=== PATIENT | female | born 2000 | race Caucasian/White ===

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

== ENCOUNTER 2021-08-01 11:00 | Emergency (ER) | payer OTHER ==
--- OUTSIDE RECORDS SUMMARY | 2021-08-01 11:06 | XMS REPORT | Continuity of Care Document ---
:2000 Author Organization [facility] t Address [address] [place] [address] Care Team Providers Name Role Phone PCP, DOES NOT HAVE A Primary Care Physician Unavailable Paris ELIZONDO Attending Clinician Unavailable Narciso WANG Attending Clinician Unavailable AXEL C Attending Clinician Unavailable Visit, Nurse Attending Clinician Unavailable Randa BONILLA, R Attending Clinician Татьяна TOLENTINO Attending Clinician Unavailable Doctor Unassigned, Name Attending Clinician Unavailable Delgado Montoya DO Attending Clinician Kathleen PLASENCIA L Attending Clinician Axel WILKINSON, C Attending Clinician Mikhail BONILLA, N Attending Clinician TOMASZ Attending Clinician Unavailable Chandan PLASENCIA Attending Clinician Tomasz MORALES Attending Clinician Dale PLASENCIA Attending Clinician Javad PLASENCIA, Mookie Attending Clinician Pob, Lab Main Attending Clinician Unavailable Nurse, Women's Health Attending Clinician Unavailable DICLEMENTE Attending Clinician Unavailable DICLEMENTE Attending Clinician Unavailable 1, Lab Attending Clinician Unavailable DICLEMENTE Admitting Clinician Unavailable Payers Payer Name Policy Type Policy Number Effective Date Expiration Date Kurtis fatima [facility] [id number] 2020 00:00:00 MEDICAID PENDING PENDING 2019 00:00:00 Advance Directives Directive Decision Effective Termination Comments Source Date Date Healthcare Agents on N/A [facility] ersity FileNameRelationshipHealthcare of [place] Agent Medical RelationshipCommunicationRegina Branch Shilpa NeurohrMotherHealth Care [phone] (Mobile) Anahi GamezdparentSecond [facility]ate [facility] [phone] (Mobile) Problems Condition Condition Condition Status Onset Resolution Last Treating Co mments Source Name Details Category Date Date Treatment Clinician Date Obesity Obesity Disease Active Univers (BMI (BMI 1-08 ity of 30-39.9) 30-39.9) 00:00: [place] 00 Medical Branch Other Other Disease Active Univers general general 9-24 ity of counseling counseling [place] and advice and advice 00 Me dical for for Branch contracept contracept tomás tomás management management Irregular Irregular Disease Active Uni vers menstrual menstrual 9-24 ity of cycle cycle 00:00: [place] 00 Medical Branch Tobacco Tobacco Disease Active Univers use use 9-24 ity of disorder disorder 00:00: [place] 00 Medical Branch Verruca Verruca Disease Active Overview: [facility] ers warts warts 1-11 Formattin ity of (infectiou (infectiou 00:00: g of this [place] s) s) 00 note Medical might be Branch different from the original. 08/22/2019 - s/p excision of a wart on her mons pubis. Pathology confirmed benign verrucous wart. Female Female Disease Active [facility] infertilit infertilit 9-06 Formattin ity of y y 00:00: g of this [place] associated associated 00 note Me dical with with might be Branch anovulatio anovulatio different n n from the original. 04/15/19 - day 3 FSH 6.96, E2 41704/15/19 - HSG normal Amenorrhea Amenorrhea Disease Active Overview : Univers , , 8-03/20/19 - ity of secondary secondary 00:00: FSH 5.88, [place] 00 LH 18.4. Medical Normal Branch prolactin , TSH, 17 hydroxypr ogesteron e. AMH 9.59. Gonococcal Gonococcal Disease Active U nivers infection infection 6-25 ity of (acute) of (acute) of 00:[place] lower lower 00 Medical genitourin genitourin Br anch avery tract avery tract Encounter Encounter Disease Active Uni vers for IUD for IUD 6-25 ity of removal removal 00:00: [place] 00 Medical Branch Presence Presence Disease Active Overview: Un jian of of 01-0901/09/19 - ity of intrauteri intrauteri 00:00: Mirena [place] ne ne 00 IUD Medical contracept contracept inserted Branch tomás device tomás device Dyspareuni Dyspareuni Disease Active Overview : Univers a, female a, female 12-02 Formattin i ty of 00:00: g of this note Medical might be Branch different from the original. 12/02/18 - Gabapenti n 300 TID started Chronic Chronic Disease Active Univers female female 12-02 ity of pelvic pelvic 00:00: [place] pain pain 00 Medical Branch Postcoital Postcoital Disease Active U nivers bleeding bleeding 12-02 ity of 00:00: [place] 00 Medical Branch Chlamydia Chlamydia Disease Active Overview: Univers trachomati trachomati 3-09/10/18 - ity of s s 00:00: +chlamydi [place] infection infection 00 a s/p Medi annel of lower of lower treatment Bra [facility] genitourin genitourin avery sites avery sites Depression Depression Disease Active U nivers , , - ity of unspecifie unspecifie 00:00: [place] d d 00 Medical depression depression Br anch type type Anxiety Anxiety Disease Active Univers disorder, disorder, - ity of unspecifie unspecifie 00:00[place] d type d type 00 Medical Branch Allergies, Adverse Reactions, Alerts Allergy Allergy Status Severity Reaction(s) Onset Inactive Treating Comm ents Source Name Type Date Date Clinician Gabapent Propensi Active Shortness of Univers in ty to Breath 8-22 ity of adverse 00:00: [place] reaction 00 Medical s Branch GABAPENT DRUG Active Anxiety Univers IN INGREDI 04-03 ity of 00:00: [address] Social History Social Habit Start Date Stop Date Quantity Comments Source History of Smoker University of tobacco use [facility] ASSERTION [facility] Exposure to Not sure University of SARS-CoV-2 [facility] (event) [place] Tobacco use and 2021-04-06 2021-04-06 Never used Universit y of exposure 00:00:00 00:00:00 [facility] Alcohol intake 2021-04-06 2021-04-06 Current drinker Unive rsity of 00:00:00 00:00:00 of alcohol [facility] (finding) [place] Tobacco Comment 2020-05-06 2020-05-06 vapes Universit y of 00:00:00 00:00:00 [facility] Alcohol Comment 2020-05-06 2020-05-06 social Universit y of 00:00:00 00:00:00 [facility] Sex Assigned At 2000 2000 Universit y of 00:00:00 00:00:00 [facility] Smoking Status Start Date Stop Date Source Current some day smoker 2021-04-06 00:00:00 [facility] ersity [facility] Never smoker [facility] Medications Ordered Filled Start Stop Current Ordering Indication Dosage Frequency Signature Comments Components Source Medication Medication Date Date Medication? Clinician (SIG) Name Name norgestimat Yes [id number] 1{tbl} Take 1 Univers e-ethinyl 1-08 tablet by ity o f estradioL 00:00: mouth [place] (ORTHO 00 daily. [facility] 28,) 0.18/0.215/ 0.25 mg-35 mcg (28) tablet norgestimat Yes [id number] 1{tbl} Take 1 Univers e-ethinyl 1-08 tablet by ity o f estradioL 00:00: mouth [place] (ORTHO 00 daily. [facility] 28,) 0.18/0.215/ 0.25 mg-35 mcg (28) tablet norgestimat Yes [id number] 1{tbl} Take 1 Univers e-ethinyl 1-08 tablet by ity o f estradioL 00:00: mouth [place] (ORTHO 00 daily. [place] [address],) 0.18/0.215/ 0.25 mg-35 mcg (28) tablet norgestimat 2020-0 Yes [id number] 1{tbl} Take 1 Univers e-ethinyl 1-08 tablet by ity o f estradioL 00:00: mouth [place] (ORTHO 00 daily. [place] [address],) 0.18/0.215/ 0.25 mg-35 mcg (28) tablet norgestimat 2020-0 Yes [id number] 1{tbl} Take 1 Univers e-ethinyl 1-08 tablet by ity o f estradioL 00:00: mouth [place] (ORTHO 00 daily. [place] [address],) 0.18/0.215/ 0.25 mg-35 mcg (28) tablet norgestimat 2020-0 Yes [id number] 1{tbl} Take 1 Univers e-ethinyl 1-08 tablet by ity o f estradioL 00:00: mouth [place] (ORTHO 00 daily. [place] [address],) 0.18/0.215/ 0.25 mg-35 mcg (28) tablet norgestimat 2020-0 Yes [id number] 1{tbl} Take 1 Univers e-ethinyl 1-08 tablet by ity o f estradioL 00:00: mouth [place] (ORTHO 00 daily. [place] [address],) 0.18/0.215/ 0.25 mg-35 mcg (28) tablet norgestimat 2020-0 Yes [id number] 1{tbl} Take 1 Univers e-ethinyl 1-08 tablet by ity o f estradioL 00:00: mouth [place] (ORTHO 00 daily. [place] [address],) 0.18/0.215/ 0.25 mg-35 mcg (28) tablet cefTRIAXone 2019-08- No [id number] 250mg Univers (ROCEPHIN) 0-26 10-26 ity of injection 22:45: 21:50 [place] 250 mg 00 :00 [facility] cefTRIAXone 2019-08 2020- No [id number] 250mg 250 mg, Univers (ROCEPHIN) 0-26 10-26 Intramuscu it y of injection 22:45: 21:50 lar, ONCE, [place] 250 mg 00 :00 1 dose, [facility] 06/07/20 at 1745, OLIVIA
Re ason for Anti-Infec tive: Empiric Therapy for Suspected Infection< br>Empiric Therapy Site: Other
O ther site: genitourin avery
Dur ation of therapy: 7 days cefTRIAXone 2019-08- No [id number] 250mg Univers (ROCEPHIN) 0- 10- ity of injection 22:45: 21:50 [place] 250 mg 00 :00 [facility] cefTRIAXone 2019-08- No [id number] 250mg 250 mg, Univers (ROCEPHIN) 0-07 06- Intramuscu it y of injection 22:45: 21:50 lar, ONCE, [place] 250 mg 00 :00 1 dose, [facility] 06/07/20 at 1745, OLIVIA
Re ason for Anti-Infec tive: Empiric Therapy for Suspected Infection< br>Empiric Therapy Site: Other
O ther site: genitourin avery
Dur ation of therapy: 7 days azithromyci 2019-08- No [id number] 1000mg Take 2 Univers n 500 mg 0-26 10-27 tablets by ity of tablet 00:00: 04:59 mouth [place] 00 :00 now for 1 Medical dose. [place] azithromyci 2019-08- No [id number] 1000mg Take 2 Univers n 500 mg 0-26 10-27 tablets by ity of tablet 00:00: 04:59 [place] 00 :00 now for 1 Medical dose. [place] cefTRIAXone 2019- No 250mg Univ ers (ROCEPHIN) 05-10 ity of injection 19:45: 19:28 [place] 250 mg 00 :00 [facility] cefTRIAXone 2019- No 250mg 250 mg, U nivers (ROCEPHIN) 05-10 Intramuscu it y of injection 19:45: 19:28 lar, ONCE, [place] 250 mg 00 :00 1 dose, [facility] 05/10/20 at 1445, OLIVIA
Re ason for Anti-Infec tive: Documented Infection< br>Documen kat Infection Site: Other
O ther site: genitourin avery
Dur ation of Therapy: Other (see Comments) azithromyci 2020-0 2020- No [id number] 1000mg Take 2 Univers n 500 mg 9-25 09-26 tablets by ity of tablet 00:00: 04:59 [place] 00 :00 now for 1 Medical dose. Branch azithromyci 2020-0 2020- No [id number] 1000mg Take 2 Univers n 500 mg 9-25 09-26 tablets by ity of tablet 00:00: 04:59 [place] 00 :00 now for 1 Medical dose. Branch norgestimat 2020-0 Yes [id number] 1{tbl} Take 1 Univers e-ethinyl 9-24 tablet by ity o f estradioL 00:00: mouth [place] (ORTHO 00 daily. [place] [address],) 0.18/0.215/ 0.25 mg-35 mcg (28) tablet norgestimat 2020-0 Yes [id number] 1{tbl} Take 1 Univers e-ethinyl 9-24 tablet by ity o f estradioL 00:00: mouth [place] (ORTHO 00 daily. [place] [address],) 0.18/0.215/ 0.25 mg-35 mcg (28) tablet norgestimat 2020-0 Yes [id number] 1{tbl} Take 1 Univers e-ethinyl 9-24 tablet by ity o f estradioL 00:00: mouth [place] [facility] [address] 0.18/0.215/ 0.25 mg-35 mcg (28) tablet norgestimat 2020-0 Yes [id number] 1{tbl} Take 1 Univers e-ethinyl 9-24 tablet by ity o f estradioL 00:00: mouth [place] ([place] 00 [facility]. [facility] [place] [address],) 0.18/0.215/ 0.25 mg-35 mcg (28) tablet norgestimat 2020-0 Yes [id number] 1{tbl} Take 1 Univers e-ethinyl 9-24 tablet by ity o f estradioL 00:00: mouth [place] ([place] 00 [facility]. [facility] [place] [address],) 0.18/0.215/ 0.25 mg-35 mcg (28) tablet norgestimat 2020-0 Yes [id number] 1{tbl} Take 1 Univers e-ethinyl 9-24 tablet by ity o f estradioL 00:00: mouth [place] (ORTHO 00 daily. [place] [address],) 0.18/0.215/ 0.25 mg-35 mcg (28) tablet norgestimat 2020-0 Yes [id number] 1{tbl} Take 1 Univers e-ethinyl 9-24 tablet by ity o f estradioL 00:00: mouth [place] (ORTHO 00 daily. [place] [address],) 0.18/0.215/ 0.25 mg-35 mcg (28) tablet norgestimat 2020-0 Yes [id number] 1{tbl} Take 1 Univers e-ethinyl 9-24 tablet by ity o f estradioL 00:00: mouth [place] (ORTHO 00 daily. [place] [address],) 0.18/0.215/ 0.25 mg-35 mcg (28) tablet norgestimat 2020-0 Yes [id number] 1{tbl} Take 1 Univers e-ethinyl 9-24 tablet by ity o f estradioL 00:00: mouth [place] (ORTHO 00 daily. [place] [address],) 0.18/0.215/ 0.25 mg-35 mcg (28) tablet norgestimat 2020-0 202- No [id number] 1{tbl} Take 1 Univers e-ethinyl 9-24 -08 tablet by ity of estradioL 00:00: 00:00 mouth [place] (ORTHO 00 :00 daily. [place] [address],) 0.18/0.215/ 0.25 mg-35 mcg (28) tablet norgestimat 2020-0 2020- No [id number] 1{tbl} Take 1 Univers e-ethinyl 9-24 01-08 tablet by ity of estradioL 00:00: 00:00 mouth [place] (ORTHO 00 :00 daily. [place] [address],) 0.18/0.215/ 0.25 mg-35 mcg (28) tablet norgestimat 2020-0 2020- No [id number] 1{tbl} Take 1 Univers e-ethinyl 9-24 09-24 tablet by ity of estradioL 00:00: 00:00 mouth [place] (ORTHO 00 :00 daily. Medical [facility]CLEN, Branch 28,) 0.18/0.215/ 0.25 mg-35 mcg (28) tablet norgestimat 2019-0 2020- No [id number] 1{tbl} Take 1 Univers e-ethinyl -06 05-24 tablet by ity of estradioL 00:00: 00:00 mouth [place] (ORTHO 00 :00 daily. Medical TRI-CYCLEN, Branch 28,) 0.18/0.215/ 0.25 mg-35 mcg (28) tablet clomiPHENE 2020-0 Yes [id number] 100mg Take 2 Univers 50 mg 2-06 tablets by ity of tablet 00:00: mouth [place] 00 daily. Medical Take first Branch dose on Day 3 of cycle. clomiPHENE 2020-0 Yes [id number] 100mg Take 2 Univers 50 mg 2-06 tablets by ity of tablet 00:00: mouth [place] 00 daily. Medical Take first Branch dose on Day 3 of cycle. clomiPHENE 2020-0 Yes [id number] 100mg Take 2 Univers 50 mg 2-06 tablets by ity of tablet 00:00: mouth [place] 00 daily. Medical Take first Branch dose on Day 3 of cycle. clomiPHENE 2020-0 Yes [id number] 100mg Take 2 Univers 50 mg 2-06 tablets by ity of tablet 00:00: mouth [place] 00 daily. Medical Take first Branch dose on Day 3 of cycle. clomiPHENE 2020-0 2020- No [id number] 100mg Take 2 Univers 50 mg 2-06 02-28 tablets by ity of tablet 00:00: 00:00 mouth [place] 00 :00 daily. Medical Take first Branch dose on Day 3 of cycle. clomiPHENE 2020-0 2020- No [id number] 100mg Take 2 Univers 50 mg 2-06 02-28 tablets by ity of tablet 00:00: 00:00 mouth [place] 00 :00 daily. Medical Take first Branch dose on Day 3 of cycle. clomiPHENE 2020-0 2020- No [id number] 100mg Take 2 Univers 50 mg 2-06 02-28 tablets by ity of tablet 00:00: 00:00 mouth [place] 00 :00 daily. Medical Take first Branch dose on Day 3 of cycle. clomiPHENE 2019-1 Yes [id number] 100mg Take 2 Univers 50 mg 2-19 tablets by ity of tablet 00:00: mouth [place] 00 daily. Medical Take first Branch dose on Day 3 of cycle. clomiPHENE 2018- Yes [id number] 100mg Take 2 Univers 50 mg 2-19 tablets by ity of tablet 00:00: mouth [place] 00 daily. Medical Take first Branch dose on Day 3 of cycle. clomiPHENE 2018- Yes [id number] 100mg Take 2 Univers 50 mg 2-19 tablets by ity of tablet 00:00: mouth [place] 00 daily. Medical Take first Branch dose on Day 3 of cycle. clomiPHENE 2018- 2020- No [id number] 100mg Take 2 Univers 50 mg 2-19 02-01 tablets by ity of tablet 00:00: 00:00 mouth [place] 00 :00 daily. Medical Take first Branch dose on Day 3 of cycle. iohexol 2019- No 50mL 50 mL, Univers (OMNIPAQUE 04-15- Intravenou it y of 300-50 mL)) 16:30: 16:05 s, ONCE, 1 [place] injection 00 :00 dose, Tue Medic al 50 mL 04/15/19 at Branch 1130, Routine 2019-0 Yes Take by Unive rs vit 8-22 mouth. ity of calc,iron,f 19:20: [place] [address] Medical ( Branch VITAMIN ORAL) 2019-0 Yes Take by Unive rs vit 8-22 mouth. ity of calc,iron,f 19:20: [place] [address] Medical ( Branch VITAMIN ORAL) 2019-0 Yes Take by Unive rs vit 8-22 mouth. ity of calc,iron,f 19:20: [place] [address] Medical ( Branch VITAMIN ORAL) 2019-0 Yes Take by Unive rs vit 8-22 mouth. ity of calc,iron,f 19:20: [place] [address] Medical ( Branch VITAMIN ORAL) 2019-0 Yes Take by Unive rs vit 8-22 mouth. ity of calc,iron,f 19:20: [place] [address] Medical ( Branch VITAMIN ORAL) 2019-0 Yes Take by Unive rs vit 8-22 mouth. ity of calc,iron,f 19:20: [place] [address] Medical ( Branch VITAMIN ORAL) medroxyPROG Yes [id number] 10mg Take 1 Univers ESTERone 8-22 tablet by ity of (PROVERA) 00:00: mouth [place] 10 mg 00 daily. 10 Medical tablet days each Branch month clomiPHENE Yes [id number] 50mg Take 1 Univers 50 mg 8-22 tablet by ity of tablet 00:00: mouth [place] 00 daily. On Medical days 5-9 Branch of your cycle medroxyPROG Yes [id number] 10mg Take 1 Univers ESTERone 8-22 tablet by ity of (PROVERA) 00:00: mouth [place] 10 mg 00 daily. 10 Medical tablet days each Branch month clomiPHENE Yes [id number] 50mg Take 1 Univers 50 mg 8-22 tablet by ity of tablet 00:00: mouth [place] 00 daily. On Medical days 5-9 Branch of your cycle medroxyPROG Yes [id number] 10mg Take 1 Univers ESTERone 8-22 tablet by ity of (PROVERA) 00:00: mouth [place] 10 mg 00 daily. 10 Medical tablet days each Branch month clomiPHENE Yes [id number] 50mg Take 1 Univers 50 mg 8-22 tablet by ity of tablet 00:00: mouth [place] 00 daily. On Medical days 5-9 Branch of your cycle medroxyPROG Yes [id number] 10mg Take 1 Univers ESTERone 8-22 tablet by ity of (PROVERA) 00:00: mouth [place] 10 mg 00 daily. 10 Medical tablet days each Branch month clomiPHENE Yes [id number] 50mg Take 1 Univers 50 mg 8-22 tablet by ity of tablet 00:00: mouth [place] 00 daily. On Medical days 5-9 Branch of your cycle medroxyPROG Yes [id number] 10mg Take 1 Univers ESTERone 8-22 tablet by ity of (PROVERA) 00:00: mouth [place] 10 mg 00 daily. 10 Medical tablet days each Branch month clomiPHENE Yes [id number] 50mg Take 1 Univers 50 mg 8-22 tablet by ity of tablet 00:00: mouth [place] 00 daily. On Medical days 5-9 Branch of your cycle medroxyPROG Yes [id number] 10mg Take 1 Univers ESTERone 8-22 tablet by ity of (PROVERA) 00:00: mouth [place] 10 mg 00 daily. 10 Medical tablet days each Branch month clomiPHENE Yes [id number] 50mg Take 1 Univers 50 mg 8-22 tablet by ity of tablet 00:00: mouth [place] 00 daily. On Medical days 5-9 Branch of your cycle cefTRIAXone 2018- No 1000mg 1,000 mg, Univers (ROCEPHIN) 03-20 Intramuscu it y of injection 21:45: 20:43 lar, ONCE, [place] 1,000 mg 00 :00 1 dose, [facility] 03/20/19 Branch at 1645, OLIVIA
Re ason for Anti-Infec tive: Empiric Therapy for Suspected Infection< br>Empiric Therapy Site: Urine
D uration of therapy: 72 hours cefTRIAXone 2018- No 1000mg Uni vers (ROCEPHIN) 03-20 ity of injection 21:45: 20:43 [place] 1,000 mg 00 :00 Medical Branch cefTRIAXone 2018- No 1000mg 1,000 mg, Univers (ROCEPHIN) 03-20 Intramuscu it y of injection 21:45: 20:43 lar, ONCE, [place] 1,000 mg 00 :00 1 dose, [facility] 03/20/19 Branch at 1645, OLIVIA
Re ason for Anti-Infec tive: Empiric Therapy for Suspected Infection< br>Empiric Therapy Site: Urine
D uration of therapy: 72 hours cefTRIAXone 2018- No 1000mg Uni vers (ROCEPHIN) 03-20 ity of injection 21:45: 20:43 [place] 1,000 mg 00 :00 Medical Branch medroxyPROG Yes [id number] 10mg Take 1 Univers ESTERone 8-08 tablet by ity of (PROVERA) 00:00: mouth [place] 10 mg 00 daily. Medical tablet Branch medroxyPROG Yes [id number] 10mg Take 1 Univers ESTERone 8-08 tablet by ity of (PROVERA) 00:00: mouth [place] 10 mg 00 daily. Medical tablet Branch medroxyPROG Yes [id number] 10mg Take 1 Univers ESTERone 8-08 tablet by ity of (PROVERA) 00:00: mouth [place] 10 mg 00 daily. Medical tablet Branch medroxyPROG 2019-0 Yes [id number] 10mg Take 1 Univers ESTERone 8-08 tablet by ity of (PROVERA) 00:00: mouth [place] 10 mg 00 daily. Medical tablet Branch medroxyPROG 2019-0 Yes [id number] 10mg Take 1 Univers ESTERone 8-08 tablet by ity of (PROVERA) 00:00: mouth [place] 10 mg 00 daily. Medical tablet Branch medroxyPROG 2019-0 Yes [id number] 10mg Take 1 Univers ESTERone 8-08 tablet by ity of (PROVERA) 00:00: mouth [place] 10 mg 00 daily. Medical tablet Branch medroxyPROG 2019-0 Yes [id number] 10mg Take 1 Univers ESTERone 8-08 tablet by ity of (PROVERA) 00:00: mouth [place] 10 mg 00 daily. Medical tablet Branch medroxyPROG 2019-0 Yes [id number] 10mg Take 1 Univers ESTERone 8-08 tablet by ity of (PROVERA) 00:00: mouth [place] 10 mg 00 daily. Medical tablet Branch medroxyPROG 2019-0 Yes [id number] 10mg Take 1 Univers ESTERone 8-08 tablet by ity of (PROVERA) 00:00: mouth [place] 10 mg 00 daily. Medical tablet Branch medroxyPROG 2019-0 Yes [id number] 10mg Take 1 Univers ESTERone 8-08 tablet by ity of (PROVERA) 00:00: mouth [place] 10 mg 00 daily. Medical tablet Branch medroxyPROG 2019-0 Yes [id number] 10mg Take 1 Univers ESTERone 8-08 tablet by ity of (PROVERA) 00:00: mouth [place] 10 mg 00 daily. Medical tablet Branch 2019-0 Yes Take by Unive rs vit 6-25 mouth. ity of calc,iron,f 18:54: [facility] 58 Medical ( Branch VITAMIN ORAL) 2019-0 Yes Take by Unive rs vit 6-25 mouth. ity of calc,iron,f 18:54: [place] [address] Medical ( Branch VITAMIN ORAL) 2019-0 Yes Take by Unive rs vit 6-25 mouth. ity of calc,iron,f 18:54: [facility] 58 Medical ( Branch VITAMIN ORAL) 2019-0 Yes Take by Unive rs vit 6-25 mouth. ity of calc,iron,f 18:54: [place] olic 58 Medical ( Branch VITAMIN ORAL) 2019-0 Yes Take by Unive rs vit 6-25 mouth. ity of calc,iron,f 18:54: [place] olic 58 Medical ( Branch VITAMIN ORAL) No known No Univers medications ity of [place] [facility] No known No Univers medications ity of [facility] No known No Univers medications ity of [facility] No known No Univers medications ity of [place] [facility] No known No Univers medications ity of [facility] No known No Univers medications ity of [place] [facility] No known No Univers medications ity of [facility] No known No Univers medications ity of [facility] No known No Univers medications ity of [facility] No known No [facility] Ordered Filled Immunization Date Status Comments Sour e Immunization Name Name Td 2018-02-07 Completed University of 00:00:00 [facility] Tdap 2018-02-07 Completed University of 00:00:00 [facility] Tdap 2018-02-07 Completed University of 00:00:00 [facility] Tdap 2018-02-07 Completed University of 00:00:00 [facility] Tdap 2018-02-07 Completed University of 00:00:00 [facility] Tdap 2018-02-07 Completed University of 00:00:00 [facility] Tdap 2018-02-07 Completed University of 00:00:00 [facility] Tdap 2018-02-07 Completed University of 00:00:00 [place] [facility] Tdap 2018-02-07 Completed University of 00:00:00 [place] [facility] Tdap 2018-02-07 Completed University of 00:00:00 [facility] Branch Tdap 2018-02-07 Completed University of 00:00:00 [facility] Branch Tdap 2018-02-07 Completed University of 00:00:00 [place] [facility] Tdap 2018-02-07 Completed University of 00:00:00 [facility] Tdap 2018-02-07 Completed University of 00:00:00 [facility] Tdap 2018-02-07 Completed University of 00:00:00 [facility] Tdap 2018-02-07 Completed University of 00:00:00 [facility] Branch Tdap 2018-02-07 Completed University of 00:00:00 [place] [facility] Tdap 2018-02-07 Completed University of 00:00:00 [place] [facility] Tdap 2018-02-07 Completed University of 00:00:00 [place] [facility] Tdap 2018-02-07 Completed University of 00:00:00 [place] [facility] Tdap 2018-02-07 Completed University of 00:00:00 [place] [facility] Tdap 2018-02-07 Completed University of 00:00:00 [place] [facility] Tdap 2018-02-07 Completed University of 00:00:00 [place] [facility] Tdap 2018-02-07 Completed University of 00:00:00 [place] [facility] Tdap 2018-02-07 Completed University of 00:00:00 [place] [facility] Tdap 2018-02-07 Completed University of 00:00:00 [place] [facility] TDAP 2018-02-07 Completed University of 00:00:00 [place] [facility] TDAP 2018-02-07 Completed University of 00:00:00 [place] [facility] TDAP 2018-02-07 Completed University of 00:00:00 [place] [facility] TDAP 2018-02-07 Completed University of 00:00:00 [place] [facility] TDAP 2018-02-07 Completed University of 00:00:00 [place] [facility] TDAP 2018-02-07 Completed University of 00:00:00 [place] [facility] TDAP 2018-02-07 Completed University of 00:00:00 [place] [facility] TDAP 2018-02-07 Completed University of 00:00:00 [place] [facility] TDAP 2018-02-07 Completed University of 00:00:00 [facility] TDAP 2018-02-07 Completed [facility] of 00:00:00 [facility] TDAP 2018-02-07 Completed [facility] of 00:00:00 [facility] TDAP 2018-02-07 Completed [facility] 00:00:00 [facility] TDAP 2018-02-07 Completed University [facility] 00:00:00 [facility] TDAP 2018-02-07 Completed [facility] 00:00:00 [facility] TDAP 2018-02-07 Completed University of 00:00:00 [facility] TDAP 2018-02-07 Completed University of 00:00:00 [facility] TDAP 2018-02-07 Completed University of 00:00:00 [facility] TDAP 2018-02-07 Completed University of 00:00:00 [facility] TDAP 2018-02-07 Completed University of 00:00:00 [facility] Tdap 2018-02-07 Completed University of 00:00:00 [facility] Tdap 2018-02-07 Completed University of 00:00:00 [facility] Tdap 2018-02-07 Completed University of 00:00:00 [facility] Vital Signs Vital Name Observation Time Observation Value Comments Source Systolic blood 2021-04-06 18:13:00 133 mm[Hg] Univer sity of pressure [facility] Diastolic blood 2021-04-06 18:13:00 86 mm[Hg] Unive rsity of pressure [facility] Heart rate 2021-04-06 18:13:00 88 /min Universi ty [facility] Body temperature 2021-04-06 18:13:00 37.56 Es Univ ersity of [facility] Respiratory rate 2021-04-06 18:13:00 16 /min Univ ersity of [facility] Body height 2021-04-06 18:13:00 167.6 cm [facility] Body weight 2021-04-06 18:13:00 87.499 kg [facility] BMI 2021-04-06 18:13:00 31.13 kg/m2 [facility] Systolic blood 2020-08-20 15:52:00 110 mm[Hg] Univer sity of pressure [facility] Diastolic blood 2020-08-20 15:52:00 77 mm[Hg] Unive rsity of pressure [facility] Heart rate 2020-08-20 15:52:00 82 /min [facility]i [facility] Body temperature 2020-08-20 15:52:00 36.89 Es Univ ersity of [facility] Respiratory rate 2020-08-20 15:52:00 16 /min Univ ersity of [facility] Body height 2020-08-20 15:52:00 167.6 cm [facility] Body weight 2020-08-20 15:52:00 87.726 kg [facility] BMI 2020-08-20 15:52:00 31.22 kg/m2 [facility] Systolic blood 2020-06-07 21:01:00 124 mm[Hg] Univer sity of pressure [facility] Diastolic blood 2020-06-07 21:01:00 73 mm[Hg] Unive rsity of pressure [facility] Heart rate 2020-06-07 21:01:00 99 /min [facility]i [facility] Body temperature 2020-06-07 21:01:00 36.78 Es Univ ersity of [facility] Respiratory rate 2020-06-07 21:01:00 16 /min Univ ersity of [facility] Body height 2020-06-07 21:01:00 167.6 cm [facility] Body weight 2020-06-07 21:01:00 86.183 kg [facility] BMI 2020-06-07 21:01:00 30.67 kg/m2 [facility] Systolic blood 2020-05-10 18:09:00 122 mm[Hg] Univer sity of pressure [facility] Diastolic blood 2020-05-10 18:09:00 78 mm[Hg] Unive rsity of pressure [facility] Heart rate 2020-05-10 18:09:00 102 /min [facility]i [facility] Body temperature 2020-05-10 18:09:00 36.56 Es Univ ersity of [facility] Respiratory rate 2020-05-10 18:09:00 16 /min Univ ersity of [facility] Body height 2020-05-10 18:09:00 170.2 cm [facility] Body weight 2020-05-10 18:09:00 82.781 kg [facility] BMI 2020-05-10 18:09:00 28.58 kg/m2 [facility] Systolic blood 2020-05-06 20:58:00 129 mm[Hg] Univer sity of pressure [facility] Diastolic blood 2020-05-06 20:58:00 86 mm[Hg] Unive rsity of pressure [facility] Heart rate 2020-05-06 20:58:00 97 /min [facility]i [facility] Body temperature 2020-05-06 20:58:00 36.44 Es Univ ersity of [facility] Respiratory rate 2020-05-06 20:58:00 16 /min Univ ersity of [facility] Body height 2020-05-06 20:58:00 170.2 cm [facility] Body weight 2020-05-06 20:58:00 84.823 kg [facility] BMI 2020-05-06 20:58:00 29.29 kg/m2 [facility] Systolic blood 2019-12-17 18:48:00 127 mm[Hg] Univer sity of pressure [facility] Diastolic blood 2019-12-17 18:48:00 90 mm[Hg] Unive rsity of pressure [facility] Body temperature 2019-12-17 18:48:00 36.22 Es Univ ersity of [facility] Respiratory rate 2019-12-17 18:48:00 16 /min Univ ersity [facility] Body height 2019-12-17 18:48:00 167.6 cm [facility] Body weight 2019-12-17 18:48:00 79.833 kg [facility] BMI 2019-12-17 18:48:00 28.41 kg/m2 [facility] Systolic blood 2019-12-17 18:21:00 127 mm[Hg] Univer sity of pressure [facility] Diastolic blood 2019-12-17 18:21:00 90 mm[Hg] Unive rsity of pressure [facility] Heart rate 2019-12-17 18:21:00 98 /min Universi [facility] Body temperature 2019-12-17 18:21:00 36.61 Es Univ ersity of [facility] Respiratory rate 2019-12-17 18:21:00 16 /min Univ ersity of [facility] Body height 2019-12-17 18:21:00 167.6 cm [facility] Body weight 2019-12-17 18:21:00 79.89 kg [facility] BMI 2019-12-17 18:21:00 28.43 kg/m2 [facility] Systolic blood 2019-10-10 19:48:00 132 mm[Hg] Univer sity of pressure [facility] Diastolic blood 2019-10-10 19:48:00 79 mm[Hg] Unive rsity of pressure [facility] Heart rate 2019-10-10 19:48:00 100 /min [facility]i [facility] Body temperature 2019-10-10 19:48:00 36.94 Es Univ ersity of [facility] Respiratory rate 2019-10-10 19:48:00 16 /min Univ ersity of [facility] Body height 2019-10-10 19:48:00 167.6 cm [facility] Body weight 2019-10-10 19:48:00 78.075 kg [facility] BMI 2019-10-10 19:48:00 27.78 kg/m2 [facility] Systolic blood 2019-09-25 22:42:00 128 mm[Hg] Univer sity of pressure [facility] Diastolic blood 2019-09-25 22:42:00 91 mm[Hg] Unive rsity of pressure [facility] Heart rate 2019-09-25 22:42:00 110 /min [facility]i [facility] Body temperature 2019-09-25 22:42:00 36.72 Es Univ ers[facility] Respiratory rate 2019-09-25 22:42:00 18 /min Univ [facility] Body weight 2019-09-25 22:42:00 78.019 kg [facility] Systolic blood 2019-04-24 15:18:00 125 mm[Hg] Univer sity of pressure [facility] Diastolic blood 2019-04-24 15:18:00 80 mm[Hg] Unive rsity of pressure [facility] Heart rate 2019-04-24 15:18:00 97 /min [facility]i ty [facility] Body temperature 2019-04-24 15:18:00 36.89 Es Univ ersity of [facility] Respiratory rate 2019-04-24 15:18:00 18 /min Univ ers[facility] Body weight 2019-04-24 15:18:00 74.118 kg [facility] Systolic blood 2019-04-03 19:19:00 126 mm[Hg] Univer sity of pressure [facility] Diastolic blood 2019-04-03 19:19:00 78 mm[Hg] Unive rsity of pressure [facility] Heart rate 2019-04-03 19:19:00 81 /min [facility]i [facility] Body temperature 2019-04-03 19:19:00 36.67 Es Univ ers[facility] Respiratory rate 2019-04-03 19:19:00 18 /min Univ ers[facility] Body height 2019-04-03 19:19:00 170.2 cm Universi ty of [facility] Body weight 2019-04-03 19:19:00 73.483 kg Universi ty [facility] BMI 2019-04-03 19:19:00 25.37 kg/m2 Universi ty [facility] Systolic blood 2019-03-20 20:05:00 120 mm[Hg] Univer sity of pressure [facility] Diastolic blood 2019-03-20 20:05:00 87 mm[Hg] Unive rsity of pressure [facility] Heart rate 2019-03-20 20:05:00 103 /min Universi ty [facility] Body temperature 2019-03-20 20:05:00 36.89 Es [facility] 2019-03-20 20:05:00 20 /min [facility] Body weight 2019-03-20 20:05:00 73.664 kg [facility] Procedures Procedure Date / Time Performing Clinician Source Performed POCT TEST 2021-04-06 Zac Elizondo [facility] 18:12:00 [facility] ASSIGNMENT OF BENEFITS 2021-04-06 Doctor Unassigned, No Uni versity of 17:57:00 Name [facility] POCT TEST 2020-08-20 Sandra Wang [place] o f 15:56:00 [facility] CONSENT FOR CONTRACEPTION 2020-08-20 Doctor Unassigned, No University of 06:01:00 Name [facility] GC & CHLAMYDIA AMPLIFIED 2020-06-07 Sallie Reyna Un iversity of ASSAY 21:38:00 [facility] POCT TEST 2020-05-06 Sallie Reyna Univers ity of 21:07:00 [facility] POCT URINALYSIS 2019-12-17 Nory Tolentino [place] of 18:27:00 [facility] POCT TEST 2019-12-17 [facility] of 18:27:00 [facility] POCT TEST 2019-10-10 Zac Elizondo [place] of 00:00:00 [facility] GC & CHLAMYDIA AMPLIFIED 2019-09-25 Shu Hawley Univhayde sity of ASSAY 23:18:00 [facility] ASSIGNMENT OF BENEFITS 2019-09-02 Doctor Unassigned, No Uni versity of 18:57:48 Name [facility] POCT TEST 2019-04-24 Tomasz [facility] o f 15:16:00 [facility] [place] HYSTEROSALPINGOGRAM 2019-04-15 Rashi Hunter rsity of 16:24:50 [facility] POCT TEST 2019-04-15 Marie Jean Paulal Nettles ity of 15:43:00 [facility] CONSENT/REFUSAL FOR 2019-03-20 Doctor Unassigned, No Univer sity of DIAGNOSIS AND TREATMENT 21:12:40 Name [facility] ASSIGNMENT OF BENEFITS 2019-03-20 Doctor Unassigned, No Uni versity of 21:12:28 Name [facility] POCT URINALYSIS W/O SPECIFIC 2019-03-20 Rashi Huntre University of GRAVITY 20:07:00 [facility] Encounters Start End Encounter Admission Attending Care Care Encounter Source Date/Time Date/Time Type Type Clinicians Facility Department ID 2021-07-21 2021-07-21 Outpatient R MIKHAIL, [facility] [id number] Univers 15:30:00 15:30:00 ZAC [id number] [facility] 2021-06-28 2021-06-28 Outpatient ADUM, [facility] [id number] Univers 10:30:00 10:30:00 SANDRA [id number] [facility] 2021-05-17 2021-05-17 Outpatient R ADUM, [facility] [id number] Univers 15:30:00 15:30:00 [facility] [id number] [facility]-05-[facility] 2021-05-17 Outpatient R ADUM, [facility] [id number] Univers 15:30:00 15:30:00 SANDRA [facility] 2021-05-09 2021-05-09 Outpatient R AKINGHASSAN, [facility] [id number] Univers 15:15:00 15:15:00 SALLIE [id number] ity o f [facility] 2021-05-09 2021-05-09 Outpatient R AKINGHASSAN, [facility] [id number] Univers 15:15:00 15:15:00 SALLIE ity o f [facility] 2021-04-06 2021-04-06 Nurse Visit, Ang-Rmchp Nurse [facility] 1.2 .840.114 [id number] Univers 13:03:25 13:32:33 Visit Nory Tolentino R [employer] PUBLISH[employer] [id number] ity of [facility] [id number] Marcelo as MATERNAL [id number] [facility] ical & CHILD [address] [place] [address] 2021-04-06 2021-04-06 Outpatient R [facility] [id number] Univers 13:30:00 13:30:00 [id number] ity [facility] 2021-04-06 2021-04-06 Outpatient R RANDA [facility] [id number] Univers 13:30:00 13:30:00 NORY joynery o [facility] 2021-04-06 2021-04-06 Orders Doctor GARRET 1.2.840.114 [id number] Univers 00:00:00 00:00:00 Only Unassigned, DOLLY [id number] ity of [employer] [facility] [id number] Marcelo as [phone] [address] 2020-11-02 2020-11-02 Patient Jan [facility] 1.2.840.114 [id number] Univers 00:00:00 00:00:00 [facility] [id number] i ty of [facility] [id number] [id number] Vt dical [address] [place] [address] 2020-09-09 2020-09-09 Outpatient R KATHLEEN [facility] [id number] Univers 15:30:00 15:30:00 SANDRA [id number] ity [facility] 2020-09-09 2020-09-09 [facility] [id number] Univers 15:30:00 15:30:00 SANDRA [facility] 2020-09-06 2020-09-06 Outpatient R AXEL, [facility] [id number] Univers 15:15:00 15:15:00 SALLIE [id number] ary o [facility] 2020-09-06 2020-09-06 Outpatient R AKINSIPE, [facility] [id number] Univers 15:15:00 15:15:00 SALLIE ity o f [facility] 2020-08-20 2020-08-20 Office Adum, [facility] 1.2.840.114 [id number] Univers 09:41:57 10:11:57 Visit Sandra Cheng [id number] ity [facility] [id number] [place] Professio [phone] Vt dical nal [facility] 2020-08-20 2020-08-20 Outpatient R ADUM, [facility] [id number] Univers 10:00:00 10:00:00 SANDRA [id number] ity [facility] 2020-08-20 2020-08-20 Outpatient R ADUM, [facility] [id number] Univers 10:00:00 10:00:00 SANDRA [facility] 2020-08-20 2020-08-20 Orders Doctor GARRET 1.2.840.114 [id number] Univers 00:00:00 00:00:00 Only Unassigned, DOLLY [id number] ity of [facility] [id number] Marcelo as [phone] [address] 2020-08-04 2020-08-04 Outpatient R AKINSIPE, [facility] [id number] Univers 15:00:00 15:00:00 SALLIE ity o f [facility] 2020-07-26 2020-07-26 Outpatient R AKINSIPE, [facility] [id number] Univers 15:15:00 15:15:00 SALLIE [id number] ity o f [facility] 2020-07-26 2020-07-26 Outpatient R AKINSIPE, [facility] [id number] Univers 15:15:00 15:15:00 SALLIE ity o f [facility] 2020-06-07 2020-06-07 Office Akinsipe, [facility] [id number] Univers 15:56:14 16:43:15 Visit Sallie Bartholomew [employer] [id number] ity of [facility] [id number] Marcelo as MATERNAL [phone] [facility] & CHILD [address] [place] [address] 2020-06-07 2020-06-07 Outpatient R AKINSIPE, [facility] [id number] Univers 16:00:00 16:00:00 SALLIE [id number] ity o f [facility] 2020-06-07 2020-06-07 Outpatient R AKINSIPE, [facility] [id number] Univers 16:00:00 16:00:00 SALLIE itcatherine o f [facility] 2020-06-02 2020-06-02 Outpatient R AKINSIPE, [facility] [id number] Univers 15:15:00 15:15:00 SALLIE [id number] ary o [facility] 2020-06-02 2020-06-02 Outpatient R AKINSIPE, [facility] [id number] Univers 15:15:00 15:15:00 SALLIE liao [facility] 2020-05-28 2020-05-28 Telephone [facility] 1.2.840.114 [id number] Univers 00:00:00 00:00:00 Sallie Bartholomew [employer] PUBLISHER [id number] [id number] Marcelo as MATERNAL [phone] [facility] & [address] 2020-05-10 2020-05-10 [facility] 1.2 .840.114 [id number] Univers 12:48:58 13:30:27 Visit Sallie Reyna [employer] PUBLISH[employer] 350.1.13. 10 [place] [id number] Marcelo as MATERNAL [phone] [facility] & CHILD [address] [place] [address] 2020-05-10 2020-05-10 Outpatient R [facility] [id number] Univers 13:00:00 13:00:00 [id number] ity [facility] 2020-05-10 2020-05-10 Outpatient R AKINSIPE, [facility] [id number] Univers 13:00:00 13:00:00 SALLIE liao [facility] 2020-05-10 2020-05-10 Telephone [facility] 1.2.840.114 [id number] Univers 00:00:00 00:00:00 Zac Toledo [employer] PUBLISH[employer] [id number] it y of [facility] [id number] Marcelo as MATERNAL [id number] [address] 2020-05-07 2020-05-07 [facility] 1.2.840.114 [id number] Univers 00:00:00 00:00:00 Sallie Bartholomew [employer] PUBLISHER [id number] ity of [facility] [id number] Marcelo as MATERNAL [id number] [address] 2020-05-06 2020-05-06 Office [facility] [id number] Univers 15:27:30 16:49:53 Visit Sallie Bartholomew [employer] PUBLISHER [id number] ity of [facility] [id number] Marcelo as MATERNAL [phone] [address] 2020-05-06 2020-05-06 Outpatient R AXEL, [facility] [id number] Univers 15:45:00 15:45:00 SALLIE [id number] ary o [facility] 2020-05-06 2020-05-06 Outpatient R AXEL, [facility] [id number] Univers 15:45:00 15:45:00 SALLIE fischer o [facility] 2020-05-05 2020-05-05 Telephone [facility] 1.2.840.114 [id number] Univers 00:00:00 00:00:00 Zac Toledo [employer] PUBLISHER [id number] it y of [facility] [id number] Marcelo as MATERNAL [id number] [address] 2020-04-16 2020-04-16 [facility] [id number] Univers 14:30:00 14:30:00 ZAC [id number] ity [facility] 2020-03-23 2020-03-23 Outpatient R AXEL, [facility] [id number] Univers 13:15:00 13:15:00 SALLIE [id number] ity o f [facility] 2020-03-16 2020-03-16 Outpatient R RANDA [facility] [id number] Univers 10:30:00 10:30:00 NORY ity o f [facility] 2020-03-16 2020-03-16 Outpatient R RANDA [facility] [id number] Univers 10:30:00 10:30:00 RUPALIAMINDA ity o f [facility] 2020-03-08 2020-03-08 Telephone [facility] 1.2.840.114 [id number] Univers 00:00:00 00:00:00 Zac N [employer] PUBLISHER [id number] it y of REG[facility] [id number] Marcelo as MATERNAL [phone] Med ical & CHILD [address] [place] [address] 2019-12-24 2019-12-24 Telephone [facility] 1.2.302.205 [id number] Univers 00:00:00 00:00:00 Rosaminda R [employer] PUBLISHER [id number] ity of REGIONAL [id number] Marcelo as MATERNAL [phone] Med ical & CHILD [address] [place] [address] 2019-12-17 2019-12-17 Office [facility] 1.2.840.114 [id number] Univers 14:15:00 14:15:00 Visit Rosmiguel angela R [employer] PUBLISH[employer] [id number] ity of [facility] [id number] Marcelo as MATERNAL [phone] Med ical & CHILD [address] [place] [address] 2019-12-17 2019-12-17 Initial [facility] 1.2.840.114 [id number] Univers 13:14:44 13:44:44 Roshunda R [employer]KTOP PUBLISHER [id number] ity of Visit REGIONAL [id number] Marcelo as MATERNAL [phone] [facility] ical & CHILD [address] [place] [address] 2019-12-17 2019-12-17 Outpatient R RANDA [facility] [id number] Univers 13:15:00 13:15:00 NORY ity o [facility] 2019-12-17 2019-12-17 Outpatient R RANDA [facility] [id number] Univers 13:15:00 13:15:00 NORY fischer o [facility] 2019-12-17 2019-12-17 Outpatient R RANDA [facility] [id number] Univers 13:15:00 13:15:00 NORY fischer o [facility] 2019-12-17 2019-12-17 Telephone [facility] [id number] Univers 00:00:00 00:00:00 Nory Vaz DESKTOP PUBLISHER 350.1.13.10 ity [facility] [id number] Marcelo as MATERNAL [phone] Med ical & CHILD [address] [place] [address] 2019-12-10 2019-12-10 [facility] [id number] Univers 08:00:00 08:00:00 SALLIE [id number] ary o [facility] 2019-12-10 2019-12-10 Outpatient [facility] [id number] Univers 08:00:00 08:00:00 SALLIE [facility] o [facility] 2019-11-27 2019-11-27 Outpatient R TOMASZ, [facility] [id number] Univers 13:00:00 13:00:00 GOPAL fischer [facility] 2019-11-24 2019-11-24 Telephone [facility] 1.2.840.114 [id number] Univers 00:00:00 00:00:00 Zac Cheng 350.1.13.10 i ty [facility] [id number] [phone] Vt dic[address] 2019-10-31 2019-10-31 [facility] [id number] Univers 13:00:00 13:00:00 ZAC [id number] aaliyah [facility] 2019-10-31 2019-10-31 [facility] [id number] Univers 13:00:00 13:00:00 ZAC fischer [facility] 2019-10-10 2019-10-10 Office [facility] [id number] Univers 13:47:42 14:18:33 Visit Zac Paris DESK[employer] PUBLISHER [id number] it y of [facility] [id number] Marcelo as MATERNAL [phone] Med ical & CHILD [address] [facility] 2019-10-10 2019-10-10 Outpatient R [facility] [id number] Univers 13:15:00 13:15:00 [id number] ity [facility] 2019-10-10 2019-10-10 [facility] [id number] Univers 13:15:00 13:15:00 ZAC arcatherine [facility] 2019-09-25 2019-09-25 Office [facility] 1.2.840.114 [id number] Univers 16:33:30 17:23:34 Visit Shu Skylar 350.1.13.10 i ty [id number] [phone] [address] 2019-09-22 2019-09-22 Telephone [facility] 1.2.840.114 [id number] Univers 00:00:00 00:00:00 Gopal Cheng [id number] i ty [id number] [phone] [address] 2019 2019 Telephone Dale [facility] 1.2.840.114 [id number] Univers 00:00:00 00:00:00 Rashi Cheng 350.1.13.10 i ty [id number] [phone] [address] 2019-09-13 2019-09-13 Refill Amber Farnsworth [facility] [id number] [id number] Univers 00:00:00 00:00:00 Mookie Cheng 350.1.13.10 i ty [place] [id number] [id number] [address] 2019-09-02 2019-09-02 Radio Script Writer Linda, [facility] [place] 1.2.8 40.114 [id number] Univers 12:57:31 13:12:31 Visit Amber Farnsworth 350.1.13.10 ity of [id number] [phone] [facility] 2019-09-02 2019-09-02 Orders Doctor GARRET 1.2.840.114 [id number] Univers 00:00:00 00:00:00 Only Unassigned, DOLLY 350.1.13.10 ity of [employer] [facility] 4.2.7.2.686 Marcelo as [phone] [facility] [address] 2019-04-24 2019-04-24 Nurse Nurse, [facility] 1.2.840.114 [id number] Univers 10:08:46 10:30:57 Visit Amber Farnsworth 350.1.13.10 it[place] [id number] [phone] [facility] 2019-04-15 2019-04-15 Hospital [facility] 1.2.840.114 [id number] Univers 09:05:01 23:59:00 Encounter Rashi Cheng 350.1.13.10 it[place]2.7.2.686 [place] [id number] [facility] [address] 2019-04-15 2019-04-15 Outpatient R RASHI HUNTER [facility] [place] [id number] Univers 09:05:01 23:59:00 RASHI HUNTER [facility] 2019-04-15 2019-04-15 Radio Script Writer 1, [facility] 1.2.840.114 [id number] Univers 09:05:18 09:20:18 Visit Rashi Hunter 350.1.13. 10 ity of [place] [id number] [place] [id number] [facility] [address] 2019-04-15 2019-04-15 Telephone Dale [facility] 1.2.840.114 [id number] Univers 00:00:00 00:00:00 Rashi Cheng [id number] [place] [phone] [address] 2019-04-03 2019-04-03 Office Mohsenmary, [facility] [id number] Univers 14:06:14 14:32:05 Visit Rashi Cheng 350.1.13.10 [place] [phone] [address] 2019-04-01 2019-04-01 Refill Doctor [facility] [id number] Univers 00:00:00 00:00:00 UnassignedSkylar 350.1.13.10 ity of [place] [phone] [address] 2019-03-20 2019-03-20 Radio Script Writer 1, Adc Lab [facility] [id number] Univers 16:15:08 16:30:08 Visit Rashi Hunter 350.1.13. 10 [place] [phone] [address] 2019-03-20 2019-03-20 [facility] [id number] Univers 14:52:09 15:58:45 Visit Rashi Cheng 350.1.13.10 [place] [phone] [address] 2019-03-20 2019-03-20 Orders Doctor GARRET [id number] Univers 00:00:00 00:00:00 Only UnassignedDOLLY 350.1.13.10 ity of [place] [facility] 4.2.7.2.686 Marcelo as [phone] [facility] [address] Results Test Description Test Time Test Comments Results Result Comments Source POCT TEST 2021-04-06 18:13:00 Test Item Value Reference Range Interpretation Comme nts POCT PREG (test code = 1605) Negative On board controls acceptable with C Line (test code = 3574) Yes POCT PREG LOT # (test code = 3575) POCT PREG TEST DATE (test code = 3576) [id number] 18:13:00 Test Item Value Reference Range Interpretation Comments POCT PREG (test code = 1605) Negative On board controls acceptable with C Yes Line (test code = 3574) POCT PREG LOT # (test code = 3575) POCT PREG TEST DATE (test code = 3576) [facility] [id number] 15:56:00 Test Item Value Reference Range Interpretation Comments POCT PREG (test code Negative = 1605) On board controls Yes acceptable with C Line (test code = 3574) POCT PREG LOT # (test code = 3575) POCT PREG TEST DATE (test code = 3576) FAROOQ (test code = FAROOQ) accurate development and interpretation of all internal controls [facility] [id number] 15:56:00 Test Item Value Reference Range Interpretation Comments POCT PREG (test code Negative = 1605) On board controls Yes acceptable with C Line (test code = 3574) POCT PREG LOT # (test code = 3575) POCT PREG TEST DATE (test code = 3576) FAROOQ (test code = FAROOQ) accurate development and interpretation of all internal controls [facility] AMPLIFIED [id number] 17:42:00 Test Item Value Reference Range Interpretation Comments C. trachomatis Nucleic Negative Negative Acid (test code = 89062-5) N. gonorrhoeae Nucleic Negative Negative Acid (test code = 36114-2) FAROOQ (test code = FAROOQ) Reliable results are dependent on adequate specimen collection. ? A positive result obtained from a patient after therapeutic treatment cannot be interpreted as indicating the presence of viable organisms. ?For patients on whom a false positive result may have adverse psychosocial impact, retesting is advised. Indeterminate: Unable to generate a valid test result on this specimen. ?Please submit a new specimen for repeat testing if clinically indicated. Chlamydia trachomatis/Neisseria gonorrhoeae nucleic acid amplification testing (NAAT) has not been validated for medico-legal specimens (sexual abuse in juana-pubertal and pre-pubertal children, sexual assault, and legal cases). ?Culture for Chlamydia trachomatis and/or Neisseria gonorrhoeae from clinically appropriate sites is the method of choice in these cases. ? Results from this testing should be interpreted in conjunction with other laboratory and clinical data available to the clinician.For females in general, a urine specimen is a second-line option because it is considered less sensitive than a cervical swab for Chlamydia trachomatis and/or Neisseria gonorrhoeae NAAT. Lab Interpretation Normal (test code = 51597-8) [facility]PLIFIED [id number] 17:42:00 Test Item Value Reference Range Interpretation Comments C. trachomatis Nucleic Negative Negative Acid (test code = 96300-6) N. gonorrhoeae Nucleic Negative Negative Acid (test code = 14628-9) FAROOQ (test code = FAROOQ) Reliable results are dependent on adequate specimen collection. ? A positive result obtained from a patient after therapeutic treatment cannot be interpreted as indicating the presence of viable organisms. ?For patients on whom a false positive result may have adverse psychosocial impact, retesting is advised. Indeterminate: Unable to generate a valid test result on this specimen. ?Please submit a new specimen for repeat testing if clinically indicated. Chlamydia trachomatis/Neisseria gonorrhoeae nucleic acid amplification testing (NAAT) has not been validated for medico-legal specimens (sexual abuse in juana-pubertal and pre-pubertal children, sexual assault, and legal cases). ?Culture for Chlamydia trachomatis and/or Neisseria gonorrhoeae from clinically appropriate sites is the method of choice in these cases. ? Results from this testing should be interpreted in conjunction with other laboratory and clinical data available to the clinician.For females in general, a urine specimen is a second-line option because it is considered less sensitive than a cervical swab for Chlamydia trachomatis and/or Neisseria gonorrhoeae NAAT. Lab Interpretation Normal (test code = 25623-0) [facility] [id number] 21:07:00 Test Item Value Reference Range Interpretation Comments POCT PREG (test code = 1605) Negative On board controls acceptable with C Yes Line (test code = 3574) POCT PREG LOT # (test code = 3575) POCT PREG TEST DATE (test code = 3576) [facility] [id number] 21:07:00 Test Item Value Reference Range Interpretation Comments POCT PREG (test code = 1605) Negative On board controls acceptable with C Yes Line (test code = 3574) POCT PREG LOT # (test code = 3575) POCT PREG TEST DATE (test code = 3576) [facility] URINALYSIS W SPECIFIC [id number] 18:28:00 Test Item Value Reference Range Interpretation Comments POCT U SP GRAV (test code = . 1.005-1.025 3255) POCT PH U (test code = 3254) 7 mg/dl 5-8 POCT U LEUK EST (test code = 2+ Negative - Negative 3263) POCT U NIT (test code = 3262) negative Negative - Negative POCT U PROT (test code = 3259) trace Negative - Negative POCT U GLU (test code = 3256) negative Negative - Negative POCT U KETONE (test code = 3258) negative Negative - Negative POCT U UROBILI (test code = . 0.2-1 3260) POCT U BILI (test code = 3261) . Negative - Negative POCT U BLD (test code = 3257) trace Negative - Negative POCT U COLOR (test code = 3266) POCT U APPEAR (test code = 3267) [facility] URINALYSIS W SPECIFIC [id number] 18:28:00 Test Item Value Reference Range Interpretation Comments POCT U SP GRAV (test code = . 1.005-1.025 3255) POCT PH U (test code = 3254) 7 mg/dl 5-8 POCT U LEUK EST (test code = 2+ Negative - Negative 3263) POCT U NIT (test code = 3262) negative Negative - Negative POCT U PROT (test code = 3259) trace Negative - Negative POCT U GLU (test code = 3256) negative Negative - Negative POCT U KETONE (test code = 3258) negative Negative - Negative POCT U UROBILI (test code = . 0.2-1 3260) POCT U BILI (test code = 3261) . Negative - Negative POCT U BLD (test code = 3257) trace Negative - Negative POCT U COLOR (test code = 3266) POCT U APPEAR (test code = 3267) [facility] URINALYSIS W SPECIFIC [id number] 18:28:00 Test Item Value Reference Range Interpretation Comments POCT U SP GRAV (test code = . 1.005-1.025 3255) POCT PH U (test code = 3254) 7 mg/dl 5-8 POCT U LEUK EST (test code = 2+ Negative - Negative 3263) POCT U NIT (test code = 3262) negative Negative - Negative POCT U PROT (test code = 3259) trace Negative - Negative POCT U GLU (test code = 3256) negative Negative - Negative POCT U KETONE (test code = 3258) negative Negative - Negative POCT U UROBILI (test code = . 0.2-1 3260) POCT U BILI (test code = 3261) . Negative - Negative POCT U BLD (test code = 3257) trace Negative - Negative POCT U COLOR (test code = 3266) POCT U APPEAR (test code = 3267) [facility] [id number] 18:27:00 Test Item Value Reference Range Interpretation Comments POCT PREG (test code = 1605) Negative On board controls acceptable with C Yes Line (test code = 3574) POCT PREG LOT # (test code = 3575) POCT PREG TEST DATE (test code = 3576) [facility] [id number] 18:27:00 Test Item Value Reference Range Interpretation Comments POCT PREG (test code = 1605) Negative On board controls acceptable with C Yes Line (test code = 3574) POCT PREG LOT # (test code = 3575) POCT PREG TEST DATE (test code = 3576) [facility] [id number] 18:27:00 Test Item Value Reference Range Interpretation Comments POCT PREG (test code = 1605) Negative On board controls acceptable with C Yes Line (test code = 3574) POCT PREG LOT # (test code = 3575) POCT PREG TEST DATE (test code = 3576) [facility] [id number] 20:00:00 Test Item Value Reference Range Interpretation Comments POCT PREG (test code = 1605) Negative On board controls acceptable with C Yes Line (test code = 3574) POCT PREG LOT # (test code = 3575) POCT PREG TEST DATE (test code = 3576) [facility] [id number] 20:00:00 Test Item Value Reference Range Interpretation Comments POCT PREG (test code = 1605) Negative On board controls acceptable with C Yes Line (test code = 3574) POCT PREG LOT # (test code = 3575) POCT PREG TEST DATE (test code = 3576) [facility] [id number] 20:00:00 Test Item Value Reference Range Interpretation Comments POCT PREG (test code = 1605) Negative On board controls acceptable with C Yes Line (test code = 3574) POCT PREG LOT # (test code = 3575) POCT PREG TEST DATE (test code = 3576) [facility] AMPLIFIED [id number] 19:41:00 Test Item Value Reference Range Interpretation Comments C. trachomatis Nucleic Acid (test Negative Negative code = 18312-0) N. gonorrhoeae Nucleic Acid (test Negative Negative code = 74524-0) Lab Interpretation (test code = Normal 35830-4) [facility] AMPLIFIED [id number] 19:41:00 Test Item Value Reference Range Interpretation Comments C. trachomatis Nucleic Acid (test Negative Negative code = 09837-9) N. gonorrhoeae Nucleic Acid (test Negative Negative code = 29576-2) Lab Interpretation (test code = Normal 44828-4) [facility] [id number] 15:20:00 Test Item Value Reference Range Interpretation Comments POCT PREG (test code Negative = 1605) On board controls Yes acceptable with C Line (test code = 3574) POCT PREG LOT # (test code = 3575) POCT PREG TEST DATE (test code = 3576) FAROOQ (test code = FAROOQ) accurate development and interpretation of all internal controls [facility] [id number] 16:43:46 HISTORY: Secondary infertility. TECHNIQUE: Procedure details were discussed with the patient. She appearedto understand everything and agreed. Perineum was cleansed using Betadinesolution. Plastic vaginal speculum was inserted and vagina and external osof the cervix were cleansed with Betadine. 7 Malawian catheter with balloonwas inserted through the cervix into the uterine cavity. Balloon wasinflated with small amount of air. Slow injection of Omnipaque 350 contrastmedia was done with intermittent fluoroscopy. Multiple images of the uterusand tubes were obtained in different projections. Balloon wasdeflated andthe catheter was removed. Patient tolerated the procedure well andexperienced no apparent immediate complications. FINDINGS: Uterine cavity appears unremarkable. Right fallopian tube wasquickly visualized filled with contrast medium with prompt spillage ofcontrast medium from the fimbrial end into the peritoneal space in rightside of the pelvis was visualized. Left fallopian tube took slightly longer time for filling with contrastmedium and there was also slight delay but eventual spillage of contrastmedian through left fallopian tube into the peritoneal space in the leftside of the pelvis was demonstrated. CONCLUSIONS: Essentially normal hysterosalpingogram study. [facility] User - 04/15/2019 11:45 AM CDTHISTORY: Secondary infertility.TECHNIQUE: Procedure details were discussed with the patient. She appearedto understand everything and agreed. Perineum was cleansedusing Betadinesolution. Plastic vaginal speculum was inserted and vagina and external osof the cervix were cleansed with Betadine. 7 Mal[place]ian catheter with balloonwas inserted through the cervix into theuterine cavity. Balloon wasinflated with small amount of air. Slow injection of Omnipaque 350 contrastmedia was done with intermittent fluoroscopy. Multiple images of the uterusand tubes were obtained in different projections. Balloon was deflated andthe catheter was removed. Patient tolerated the procedure well andexperienced no apparent immediate complications.FINDINGS: Uterine cavity appears unremarkable. Right fallopian tube wasquickly visualized filled with contrast medium with prompt spillage ofcontrast medium from the fimbrial end into the peritoneal space in rightside of the pelvis was visua lized.Left fallopian tube took slightly longer time for filling with contrastmedium and there was also slight delay but eventual spillage of contrastmedian through left fallopian tube into the peritoneal space in the leftside of the pelvis was demonstrated.CONCLUSIONS: Essentially normal hysterosalpingogram study.[facility] TEST 2019-04-15 15:44:00 Test Item Value Reference Range Interpretation Comments POCT PREG (test code = 1605) Negative On board controls acceptable with Yes C Line (test code = 3574) POCT PREG LOT # (test code = 3575) [id number] POCT PREG TEST DATE (test 08/12/2020 code = 3576) Lab Interpretation (test code = Normal 55926-0) [facility] [id number] 20:13:00 Test Item Value Reference Range Interpretation Comments POCT PH U (test code = 3254) 7 mg/dl 5-8 POCT U LEUK EST (test code = 1+ Negative - Negative 3263) POCT U NIT (test code = 3262) Negative Negative - Negative POCT U PROT (test code = 3259) Negative Negative - Negative POCT U GLU (test code = 3256) Negative Negative - Negative POCT U KETONE (test code = 3258) Negative Negative - Negative POCT U BLD (test code = 3257) Large Negative - Negative [facility] SPECIFIC [id number] 20:13:00 Test Item Value Reference Range Interpretation Comments POCT PH U (test code = 3254) 7 mg/dl 5-8 POCT U LEUK EST (test code = 1+ Negative - Negative 3263) POCT U NIT (test code = 3262) Negative Negative - Negative POCT U PROT (test code = 3259) Negative Negative - Negative POCT U GLU (test code = 3256) Negative Negative - Negative POCT U KETONE (test code = 3258) Negative Negative - Negative POCT U BLD (test code = 3257) Large Negative - Negative [facility]
--- NOTE | 2021-08-01 12:55 | EDPHYS ---
Physician Documentation [facility] Name: Sienna Rodriguez Age: 20 yrs Sex: Female : 2000 Arrival Date: 08/01/2021 Time: 11:03 Bed 11 Private MD: ED Physician Natalio Holland HPI: 08/01 12:52 This 20 yrs old Female presents to ER via Ambulatory with complaints of Cold Symptoms. jr8 12:52 This is a 20-year-old female who presented to the emergency room with 2-day history of jr8 upper respiratory-like symptoms. Complains of sinus congestion, cough, sore throat, runny nose. Has been at home with similar symptoms. 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 - Social history:: Smoking status: Patient/guardian denies using tobacco. ROS: 12:52 Eyes: Negative for injury, pain, redness, and discharge, Neck: Negative for injury, jr8 pain, and swelling, Cardiovascular: Negative for chest pain, palpitations, and edema, Abdomen/GI: Negative for abdominal pain, nausea, vomiting, diarrhea, and constipation, Back: Negative for injury and pain, MS/Extremity: Negative for injury and deformity, Skin: Negative for injury, rash, and discoloration, Neuro: Negative for headache, weakness, numbness, tingling, and seizure. 12:52 ENT: Positive for rhinorrhea, sinus congestion, sore throat. 12:52 Respiratory: Positive for cough. Exam: 12:52 Constitutional: This is a well developed, well nourished patient who is awake, alert, jr8 and in no acute distress. Head/Face: Normocephalic, atraumatic. Eyes: Pupils equal round and reactive to light, extra-ocular motions intact. Lids and lashes normal. Conjunctiva and sclera are non-icteric and not injected. Cornea within normal limits. Periorbital areas with no swelling, redness, or edema. ENT: Nares patent. No nasal discharge, no septal abnormalities noted. Tympanic membranes are normal and external auditory canals are clear. Oropharynx with no redness, swelling, or masses, exudates, or evidence of obstruction, uvula midline. Mucous membranes moist. Neck: Trachea midline, no thyromegaly or masses palpated, and no cervical lymphadenopathy. Supple, full range of motion without nuchal rigidity, or vertebral point tenderness. No Meningismus. Cardiovascular: Regular rate and rhythm with a normal S1 and S2. No gallops, murmurs, or rubs. Normal PMI, no JVD. No pulse deficits. Respiratory: Lungs have equal breath sounds bilaterally, clear to auscultation and percussion. No rales, rhonchi or wheezes noted. No increased work of breathing, no retractions or nasal flaring. Abdomen/GI: Soft, non-tender, with normal bowel sounds. No distension or tympany. No guarding or rebound. No evidence of tenderness throughout. Skin: Warm, dry with normal turgor. Normal color with no rashes, no lesions, and no evidence of cellulitis. MS/ Extremity: Pulses equal, no cyanosis. Neurovascular intact. Full, normal range of motion. Neuro: Awake and alert, GCS 15, oriented to person, place, time, and situation. Cranial nerves II-XII grossly intact. Motor strength 5/5 in all extremities. Sensory grossly intact. Vital Signs: 11:27 BP 132 / 82; Pulse 89; Resp 18; Temp 98.0; Pulse Ox 100% ; Weight 83.91 kg; Height 5 ww ft. 7 in. (170.18 cm); Pain 0/10; 11:27 Body Mass Index 28.97 (83.91 kg, 170.18 cm) ww MDM: 12:12 Patient medically screened. [facility] 12:52 Data reviewed: vital signs, nurses notes, lab test result(s), and as a result, I will [facility] discharge patient. Data interpreted: Pulse oximetry: on room air is 100 %. Interpretation: normal. Counseling: I had a detailed discussion with the patient and/or guardian regarding: the historical points, exam findings, and any diagnostic results supporting the discharge/admit diagnosis, lab results, the need for outpatient follow up, a family practitioner, to return to the emergency department if symptoms worsen or persist or if there are any questions or concerns that arise at home. 08/01 12:52 Order name: SARS-COV-2 RT PCR (Document "Date of Onset" if Symptomatic) jr8 08/01 12:52 Order name: SARS-COV-2 RT PCR EDMS Administered Medications: No medications were administered Disposition Summary: 08/01/21 12:54 Discharge Ordered Location: Home jr8 Problem: new jr8 Symptoms: have improved jr8 Condition: Stable jr8 Diagnosis - Acute upper respiratory infection, unspecified jr8 - Viral infection, unspecified jr8 Followup: jr8 - With: Private Physician - When: 1 week - Reason: Recheck today's complaints, Continuance of care, Re-evaluation by your physician Discharge Instructions: - Discharge Summary Sheet jr8 - Viral Respiratory Infection jr8 - COVID-19 jr8 Forms: - Medication Reconciliation Form jr8 - Thank You Letter jr8 - Antibiotic Education jr8 - Prescription Opioid Use jr8 - Work release form ap3 Prescriptions: - promethazine-DM 6.25-15 mg/5 mL Oral syrup - take 5 milliliter by ORAL route every 4-6 hours as needed, not to exceed 30 mL jr8 in 24 hours; 110 milliliter; Refills: 0, Product Selection Permitted - Medrol (Emmanuel) 4 mg Oral Tablets, Dose Pack - take 1 tablet by ORAL route as directed - follow package instructions; 1 jr8 packet; Refills: 0, Product Selection Permitted - Tessalon Perles 100 mg Oral Capsule - take 1 capsule by ORAL route every 8 hours As needed; 15 capsule; Refills: 0, jr8 Product Selection Permitted Addendum: 08/02/2021 18:46 Co-signature as Attending Physician, Natalio Holland MD I agree with the assessment and c mckinnon plan of care. Signatures: Dispatcher [employer] EDMS Natalio Holland MD MD cha Roszak, Josh, PA PA jr8 Radha Lema, RN RN bethel Corrections: (The following items were deleted from the chart) 08/01 11:30 11:29 PMHx: Hypertension; bethel hugo
--- NOTE | 2021-08-01 12:55 | ER ---
Nurse's Notes [facility] Kristan Name: Sienna Rodriguez Age: 20 yrs Sex: Female : 2000 Arrival Date: 08/01/2021 Time: 11:03 Bed 11 Private MD: Diagnosis: Acute upper respiratory infection, unspecified;Viral infection, unspecified Presentation: 08/01 11:27 Chief complaint: Patient states: Congestion in her upper neck, headache, cough and sore ww throat that started Edil night. Coronavirus screen: Vaccine status: Patient reports receiving the 2nd dose of the covid vaccine. Client denies travel out of the [place] in the last 14 days. Ebola Screen: Patient negative for fever greater than or equal to 101.5 degrees Fahrenheit, and additional compatible Ebola Virus Disease symptoms Patient denies exposure to infectious person. Patient denies travel to an Ebola-affected area in the 21 days before illness onset. Initial Sepsis Screen: Does the patient meet any 2 criteria? No. Patient's initial sepsis screen is negative. Does the patient have a suspected source of infection? No. Patient's initial sepsis screen is negative. Risk Assessment: Do you want to hurt yourself or someone else? Patient reports no desire to harm self or others. Onset of symptoms was July 29, 2021. 11:27 Method Of Arrival: Ambulatory ww 11:27 Acuity: GATO 4 ww Triage Assessment: 11:29 General: Appears in no apparent distress. comfortable, Behavior is calm, cooperative, ww appropriate for age. Pain: Denies pain. EENT: Reports nasal congestion. Neuro: Level of Consciousness is awake, alert, obeys commands, Oriented to person, place, time, situation, Appropriate for age Speech is normal. Cardiovascular: Capillary refill < 3 seconds fingers. Respiratory: Reports cough that is Airway is patent Respiratory effort is even, unlabored, Respiratory pattern is regular, symmetrical. GI: No deficits noted. No signs and/or symptoms were reported involving the gastrointestinal system. : No deficits noted. No signs and/or symptoms were reported regarding the genitourinary system. Derm: No deficits noted. No signs and/or symptoms reported regarding the dermatologic system. Skin is intact, Skin is pink, warm \T\ dry. Skin temperature is warm. Musculoskeletal: No deficits noted. No signs and/or symptoms reported regarding the musculoskeletal system. 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 - Social history:: Smoking status: Patient/guardian denies using tobacco. Screenin:10 Abuse screen: Denies threats or abuse. Nutritional screening: No deficits noted. ap3 Tuberculosis screening: No symptoms or risk factors identified. Fall Risk None identified. Assessment: 12:11 General: Appears in no apparent distress. comfortable, Behavior is calm, cooperative, ap3 appropriate for age. Neuro: Level of Consciousness is awake, alert, obeys commands, Oriented to person, place, time, situation, Appropriate for age Cost Estimating Manager are equal bilaterally Moves all extremities. Gait is steady, Speech is normal, Facial symmetry appears normal. Cardiovascular: Capillary refill < 3 seconds Patient's skin is warm and dry. Respiratory: Reports cough that is Airway is patent Respiratory effort is even, unlabored, Respiratory pattern is regular, symmetrical. Vital Signs: 11:27 BP 132 / 82; Pulse 89; Resp 18; Temp 98.0; Pulse Ox 100% ; Weight 83.91 kg; Height 5 ww ft. 7 in. (170.18 cm); Pain 0/10; 11:27 Body Mass Index 28.97 (83.91 kg, 170.18 cm) ED Course: 11:03 Patient arrived in ED. rg4 11:29 Triage completed. ww 11:29 Arm band placed on right wrist. ww 12:08 Leelee Valle, RN is Primary Nurse. ap3 12:10 Patient has correct armband on for positive identification. Bed in low position. Call ap3 light in reach. Side rails up X 1. Pulse ox on. NIBP on. Door closed. Noise minimized. 12:12 Daljit Garcia PA is PHCP. jr8 12:12 Natalio Holland MD is Attending Physician. jr8 12:59 No provider procedures requiring assistance completed. Patient did not have IV access ap3 during this emergency room visit. Administered Medications: No medications were administered Outcome: 12:54 Discharge ordered by . jr8 12:59 Discharged to home ambulatory. ap3 12:59 Condition: good 12:59 Discharge instructions given to patient, Instructed on discharge instructions, follow up and referral plans. medication usage, Demonstrated understanding of instructions, follow-up care, medications, Prescriptions given X 3. 12:59 Patient left the ED. ap3 Signatures: Daljit Garcia PA PA jr8 Aydee Murillo rg4 Leelee Valle RN RN [id number] Radha Lema RN RN ww Corrections: (The following items were deleted from the chart) 11:30 11:29 PMHx: Hypertension; [place] ww
[2021-08-01 13:06] VITALS: BP 132/82; TEMP 98; O2SAT 100
== END 2021-08-01 12:59 | disposition home or self-care (01) ==
LOC: ER 11:00
DX: J06.9 Acute upper respiratory infection, unspecified (principal); B34.9 Viral infection, unspecified; Z20.822 Contact with and (suspected) exposure to COVID-19; Z88.8 Allergy status to other drugs, medicaments and biological substances
CPT/HCPCS: 99283; U0003

== ENCOUNTER 2022-01-02 16:08 | Emergency (ER) | payer OTHER, SELFPAY ==
--- OUTSIDE RECORDS SUMMARY | 2022-01-02 16:12 | XMS REPORT | Continuity of Care Document ---
:2000 Author Organization [facility] t Address [address] [place] [address] Care Team Providers Name Role Phone Js GONZALEZ Primary Care Physician Unavailable Narciso PATTERSON Attending Clinician Unavailable Kathleen PLASENCIA L Attending Clinician Doctor Unassigned, Name Attending Clinician Unavailable Payers Payer Name Policy Type Policy Number Effective Date Expiration Date [facility] [id number] 2020 00:00:00 Problems Condition Condition Condition Status Onset Resolution Last Treating Co mments Source Name Details Category Date Date Treatment Clinician Date Elevated Elevated Disease Active Unive rs hemoglobin hemoglobin 4-08 it y of 00:00: [address] Anxiety Anxiety Disease Active Univers and and 3-23 [place] [facility] Obesity Obesity Disease Active Univers (BMI (BMI 1-08 ity of 30-39.9) 30-39.9) 00:00: [address] Other Other Disease Active Univers general general 9-24 ity of counseling [place] advice and advice 00 Ms dical for for Branch contracept contracept tomás tomás management management Irregular Irregular Disease Active Uni vers menstrual menstrual 9-24 ity of cycle cycle 00:00: [address] Tobacco Tobacco Disease Active Univers use use 9-24 ity of disorder disorder 00:00: [place] 00 Medical [facility] Verruca Verruca Disease Active Overview: Univ ers warts warts -11 Formattin ity of (infectiou (infectiou 00:00: g of this [place] s) s) 00 note Medical might be Branch different from the original. 08/22/2019 - s/p excision of a wart on her mons pubis. Pathology confirmed benign verrucous wart. Female Female Disease Active Overview: Univer s infertilit infertilit 04-18 Formattin ity of y y 00:00: g of this [place] associated associated 00 note Me dical with with might be Branch anovulatio anovulatio different n n from the original. 04/15/19 - day 3 FSH 6.96, E2 41704/15/19 - HSG normal Dyspareuni Dyspareuni Disease Active Overview : Univers a, female a, female 12-02 Formattin i ty of 00:00: g of this 00 note Medical might be Branch different from the original. 12/02/18 - Gabapenti n 300 TID started Chronic Chronic Disease Active Univers female female 12-02 ity of pelvic pelvic 00:00: [place] pain pain 00 Medical Branch Depression Depression Disease Active U nivers , , 3- ity of unspecifie unspecifie [place] d 00 Medical depression depression Br anch type type Anxiety Anxiety Disease Active Univers disorder, disorder, 11-08 ity of unspecifie unspecifie [place] type d type 00 Medical [facility] Allergies, Adverse Reactions, Alerts Allergy Allergy Status Severity Reaction(s) Onset Inactive Treating Comm ents Source Name Type Date Date Clinician Gabapent Propensi Active Shortness of Univers in ty to Breath 8 ity of adverse 00:00: [place] reaction 00 Medical s Branch GABAPENT DRUG Active Anxiety Univers IN INGREDI 8- ity of 00:00: [place] 00 Medical Branch Social History Social Habit Start Date Stop Date Quantity Comments Source History of Smoker University of tobacco use [place] [facility] Exposure to 2021-11-20 2021-11-30 Not sure [facility] SARS-CoV-2 00:00:00 10:45:00 [place] [facility] (event) Branch Alcohol intake 2021-11-03 2021-11-03 Ex-drinker University of 00:00:00 00:00:00 (finding) [facility] Tobacco use and 2021-11-02 2021-11-02 Never used Universit y of exposure 00:00:00 00:00:00 [facility] Alcohol Comment 2021-11-02 2021-11-02 2-3x a week Universi ty of 00:00:00 00:00:00 [place] [facility] History SDOH 2020-05-06 2020-05-06 99 University o f Alcohol Frequency 00:00:00 00:00:00 [place] M edical [facility] History SDOH 2020-05-06 2020-05-06 99 University o f Alcohol Std 00:00:00 00:00:00 [place] Medical Drinks Branch History [facility] 2020-05-06 2020-05-06 99 [place] o f Alcohol Binge 00:00:00 00:00:00 [facility] al Branch Sex Assigned At 2000 2000 Universit y of 00:00:00 00:00:00 [facility] Smoking Status Start Date Stop Date Source Former smoker 2021-11-02 00:00:00 2021-11-02 00:00:00 Universi ty of [facility] Medications Ordered Filled Start Stop Current Ordering Indication Dosage Frequency Signature Comments Components Source Medication Medication Date Date Medication? Clinician (SIG) Name Name levonorgest 2021- No [id number] 1{devic Univers reL 4-20 04-20 e} ity of (MIRENA) 22:00: 20:50 [place] IUD 1 00 :00 Pvc Monitor [place] levonorgest 2021- No [id number] 1{devic 1 Device, Univers reL 4-20 04-20 e} Intrauteri ity of (MIRENA) 22:00: 20:50 ne, ONCE, Marcelo as IUD 1 00 :00 1 dose, On Pvc Monitor [facility] 11/30/21 at 1700, Routine levonorgest 2021- No [id number] 1{devic Univers reL 4-20 04-20 e} ity of (MIRENA) 22:00: 20:50 [place] IUD 1 00 :00 Pvc Monitor [place] levonorgest 2021- No [id number] 1{devic 1 Device, Univers reL 11-30 e} Intrauteri ity of (MIRENA) 22:00: 20:50 ne, ONCE, Marcelo as IUD 1 00 :00 1 dose, On Pvc Monitor Wed Branch 11/30/21 at 1700, Routine metroNIDAZO 2- No [id number] 500mg Take 1 Univers LE 500 mg 3-25 04-20 tablet by ity of tablet 00:00: 00:00 mouth [place] 00 :00 every 12 Medical (twelve) Branch hours. metroNIDAZO 2021- No [id number] 500mg Take 1 Univers LE 500 mg 3-25 04-20 tablet by ity of tablet 00:00: 00:00 mouth [place] 00 :00 every 12 Medical (twelve) Branch hours. loratadine Yes [id number] 10mg Take 1 U nivers 10 mg 3-24 tablet by ity of tablet 00:00: mouth [place] 00 daily. Medical Branch benzonatate Yes [id number] 100mg Take 1 Univers (TESSALON 3-24 capsule by ity of PERLES) 100 00:00: mouth [place] mg capsule 00 every 8 Medica l (eight) Branch hours as needed for Cough. loratadine 0 Yes [id number] 10mg Take 1 U nivers 10 mg 3-24 tablet by ity of tablet 00:00: mouth [place] 00 daily. Medical Branch benzonatate 0 Yes [id number] 100mg Take 1 Univers (TESSALON 3-24 capsule by ity of PERLES) 100 00:00: mouth [place] mg capsule 00 every 8 Medica l (eight) Branch hours as needed for Cough. loratadine 0 Yes [id number] 10mg Take 1 U nivers 10 mg 3-24 tablet by ity of tablet 00:00: mouth [place] 00 daily. Medical Branch benzonatate 0 Yes [id number] 100mg Take 1 Univers (TESSALON 3-24 capsule by ity of PERLES) 100 00:00: mouth [place] mg capsule 00 every 8 Medica l (eight) Branch hours as needed for Cough. loratadine 2021-0 Yes [id number] 10mg Take 1 U nivers 10 mg 3-24 tablet by ity of tablet 00:00: mouth [place] 00 daily. Medical Branch benzonatate 2021-0 Yes [id number] 100mg Take 1 Univers (TESSALON 3-24 capsule by Ayala) 100 00:00: mouth [place] mg capsule 00 every 8 Medica l (eight) Branch hours as needed for Cough. Immunizations Ordered Immunization Filled Immunization Date Status Commen ts Source Name Name SARS-COV-2 COVID-19 2021-05-04 Completed Unive rsity of PFIZER VACCINE 00:00:00 [facility] SARS-COV-2 COVID-19 2021-05-04 Completed Unive rsity of PFIZER VACCINE 00:00:00 [facility] SARS-COV-2 COVID-19 2021-05-04 Completed Unive rsity of PFIZER VACCINE 00:00:00 [facility] SARS-COV-2 COVID-19 2021-05-04 Completed Unive rsity of PFIZER VACCINE 00:00:00 [facility] SARS-COV-2 COVID-19 2021-04-13 Completed Unive rsity of PFIZER VACCINE 00:00:00 [facility] SARS-COV-2 COVID-19 2021-04-13 Completed Unive rsity of PFIZER VACCINE 00:00:00 [facility] SARS-COV-2 COVID-19 2021-04-13 Completed Unive rsity of PFIZER VACCINE 00:00:00 [facility] SARS-COV-2 COVID-19 2021-04-13 Completed Unive rsity of PFIZER VACCINE 00:00:00 [facility] Meningococcal 2019-04-10 Completed University of Polysaccharide 00:00:00 [facility] [place] [facility] (groups A, C, Y and Branc h W-135) conjugate vaccine (MCV4P) Meningococcal 2019-04-10 Completed University of Polysaccharide 00:00:00 [facility] [place] [facility] (groups A, C, Y and Branc h W-135) conjugate vaccine (MCV4P) Meningococcal 2019-04-10 Completed University of Polysaccharide 00:00:00 [facility] [place] [facility] (groups A, C, Y and Branc h W-135) conjugate vaccine (MCV4P) Meningococcal 2019-04-10 Completed University of Polysaccharide 00:00:00 [facility] [place] [facility] (groups A, C, Y and Branc h W-135) conjugate vaccine (MCV4P) TDAP 2018-02-07 Completed University of 00:00:00 [facility] Branch TDAP 2018-02-07 Completed University of 00:00:00 [place] [facility] TDAP 2018-02-07 Completed University of 00:00:00 [place] [facility] TDAP 2018-02-07 Completed University of 00:00:00 [facility] Branch HPV 2013-07-24 Completed University of 00:00:00 [place] [facility] HPV 2013-07-24 Completed University of 00:00:00 [place] [facility] HPV 2013-07-24 Completed University of 00:00:00 [place] [facility] HPV 2013-07-24 Completed University of 00:00:00 [place] [facility] HPV 2013-04-16 Completed University of 00:00:00 [place] [facility] HPV 2013-04-16 Completed University of 00:00:00 [place] [facility] HPV 2013-04-16 Completed University of 00:00:00 [place] [facility] HPV 2013-04-16 Completed University of 00:00:00 [facility] Branch TDAP 2013-01-21 Completed University of 00:00:00 [facility] HPV 2013-01-21 Completed University of 00:00:00 [facility] Meningococcal 2013-01-21 Completed University of Polysaccharide 00:00:00 [place] Medi annel (groups A, C, Y and Branc h W-135) conjugate vaccine (MCV4P) TDAP 2013-01-21 Completed University of 00:00:00 [facility] HPV 2013-01-21 Completed University of 00:00:00 [facility] Branch Meningococcal 2013-01-21 Completed University of Polysaccharide 00:00:00 [place] Medi annel (groups A, C, Y and Branc h W-135) conjugate vaccine (MCV4P) TDAP 2013-01-21 Completed University of 00:00:00 [facility] Branch HPV 2013-01-21 Completed University of 00:00:00 [facility] Branch Meningococcal 2013-01-21 Completed University of Polysaccharide 00:00:00 [place] Medi annel (groups A, C, Y and Branc h W-135) conjugate vaccine (MCV4P) TDAP 2013-01-21 Completed University of 00:00:00 [place] [facility] HPV 2013-01-21 Completed University of 00:00:00 [facility] Branch Meningococcal 2013-01-21 Completed University of Polysaccharide 00:00:00 [place] Medi annel (groups A, C, Y and Branc h W-135) conjugate vaccine (MCV4P) HEPATITIS A 2006-06-27 Completed University of 00:00:00 [facility] HEPATITIS A 2006-06-27 Completed University of 00:00:00 [facility] HEPATITIS A 2006-06-27 Completed University of 00:00:00 [facility] HEPATITIS A 2006-06-27 Completed University of 00:00:00 [facility] DTAP 2005-11-15 Completed University of 00:00:00 [facility] HEPATITIS A 2005-11-15 Completed University of 00:00:00 [facility] Hep B, Adol or Pedi 2005-11-15 Completed Unive rsity of Dosage 00:00:00 [facility] MMR 2005-11-15 Completed University of 00:00:00 [facility] Polio (IPV/OPV) 2005-11-15 Completed Universit y of 00:00:00 [facility] Varicella 2005-11-15 Completed University of (varivax)(chicken 00:00:00 [place] M [facility]ical pox) Branch Pneumococcal 7 2005-11-15 Completed University of Conjugate, PCV7 00:00:00 [place] [facility] ical (Prevnar7) Branch DTAP 2005-11-15 Completed University of 00:00:00 [facility] HEPATITIS A 2005-11-15 Completed University of 00:00:00 [facility] Hep B, Adol or Pedi 2005-11-15 Completed Unive rsity of Dosage 00:00:00 [facility] MMR 2005-11-15 Completed University of 00:00:00 [facility] Polio (IPV/OPV) 2005-11-15 Completed Universit y of 00:00:00 [facility] Varicella 2005-11-15 Completed University of (varivax)(chicken 00:00:00 [place] M [facility]ical pox) Branch Pneumococcal 7 2005-11-15 Completed University of Conjugate, PCV7 00:00:00 [place] [facility] ical (Prevnar7) Branch DTAP 2005-11-15 Completed University of 00:00:00 [facility] HEPATITIS A 2005-11-15 Completed University of 00:00:00 [facility] Hep B, Adol or Pedi 2005-11-15 Completed Unive rsity of Dosage 00:00:00 [facility] MMR 2005-11-15 Completed University of 00:00:00 [facility] Polio (IPV/OPV) 2005-11-15 Completed Universit y of 00:00:00 [facility] Varicella 2005-11-15 Completed University of (varivax)(chicken 00:00:00 [place] M [place]ical pox) Branch Pneumococcal 7 2005-11-15 Completed University of Conjugate, PCV7 00:00:00 [place] [facility] ical (Prevnar7) Branch DTAP 2005-11-15 Completed University of 00:00:00 [facility] HEPATITIS A 2005-11-15 Completed University of 00:00:00 [facility] Hep B, Adol or Pedi 2005-11-15 Completed Unive rsity of Dosage 00:00:00 [facility] MMR 2005-11-15 Completed University of 00:00:00 [facility] Polio (IPV/OPV) 2005-11-15 Completed Universit y of 00:00:00 [facility] Varicella 2005-11-15 Completed University of (varivax)(chicken 00:00:00 [place] M edical pox) Branch Pneumococcal 7 2005-11-15 Completed University of Conjugate, PCV7 00:00:00 [place] Med ical (Prevnar7) Branch Varicella 2001-11-18 Completed University of (varivax)(chicken 00:00:00 [place] M [place]ical pox) Branch Varicella 2001-11-18 Completed University of (varivax)(chicken 00:00:00 [place] M edical pox) Branch Varicella 2001-11-18 Completed University of (varivax)(chicken 00:00:00 [place] M edical pox) Branch Varicella 2001-11-18 Completed University of (varivax)(chicken 00:00:00 [place] M edical pox) Branch HIB 4 Dose Schedule 2001 Completed Unive rsity of 00:00:00 [facility] Hep B, Adol or Pedi 2001 Completed Unive rsity of Dosage 00:00:00 [facility] MMR 2001 Completed University of 00:00:00 [facility] Polio (IPV/OPV) 2001 Completed Universit y of 00:00:00 [facility] Pneumococcal 7 2001 Completed University of Conjugate, PCV7 00:00:00 [place] [facility] ical (Prevnar7) Branch HIB 4 Dose Schedule 2001 Completed Unive rsity of 00:00:00 [facility] Hep B, Adol or Pedi 2001 Completed Unive rsity of Dosage 00:00:00 [facility] MMR 2001 Completed University of 00:00:00 [facility] Polio (IPV/OPV) 2001 Completed Universit y of 00:00:00 [facility] Pneumococcal 7 2001 Completed University of Conjugate, PCV7 00:00:00 [place] Med ical (Prevnar7) Branch HIB 4 Dose Schedule 2001 Completed Unive rsity of 00:00:00 [facility] Hep B, Adol or Pedi 2001 Completed Unive rsity of Dosage 00:00:00 [facility] MMR 2001 Completed University of 00:00:00 [facility] Polio (IPV/OPV) 2001 Completed Universit y of 00:00:00 [facility] Pneumococcal 7 2001 Completed University of Conjugate, PCV7 00:00:00 [place] Med ical (Prevnar7) Branch HIB 4 Dose Schedule 2001 Completed Unive rsity of 00:00:00 [facility] Hep B, Adol or Pedi 2001 Completed Unive rsity of Dosage 00:00:00 [facility] MMR 2001 Completed University of 00:00:00 [facility] Polio (IPV/OPV) 2001 Completed Universit y of 00:00:00 [facility] Pneumococcal 7 2001 Completed University of Conjugate, PCV7 00:00:00 [place] [facility] ical (Prevnar7) Branch DTAP 2001-05-10 Completed University of 00:00:00 [facility] HIB 4 Dose Schedule 2001-05-10 Completed Unive rsity of 00:00:00 [facility] Pneumococcal 7 2001-05-10 Completed University of Conjugate, PCV7 00:00:00 [place] [facility] ical (Prevnar7) Branch DTAP 2001-05-10 Completed University of 00:00:00 [facility] HIB 4 Dose Schedule 2001-05-10 Completed Unive rsity of 00:00:00 [facility] Pneumococcal 7 2001-05-10 Completed University of Conjugate, PCV7 00:00:00 [place] [facility] ical (Prevnar7) Branch DTAP 2001-05-10 Completed University of 00:00:00 [facility] HIB 4 Dose Schedule 2001-05-10 Completed Unive rsity of 00:00:00 [facility] Pneumococcal 7 2001-05-10 Completed University of Conjugate, PCV7 00:00:00 [place] Med ical (Prevnar7) Branch DTAP 2001-05-10 Completed University of 00:00:00 [facility] HIB 4 Dose Schedule 2001-05-10 Completed Unive rsity of 00:00:00 [facility] Pneumococcal 7 2001-05-10 Completed University of Conjugate, PCV7 00:00:00 [place] [facility] ical (Prevnar7) Branch DTAP 2001-03-06 Completed University of 00:00:00 [facility] HIB 4 Dose Schedule 2001-03-06 Completed Unive rsity of 00:00:00 [facility] Hep B, Adol or Pedi 2001-03-06 Completed Unive rsity of Dosage 00:00:00 [facility] Polio (IPV/OPV) 2001-03-06 Completed Universit y of 00:00:00 [facility] Pneumococcal 7 2001-03-06 Completed University of Conjugate, PCV7 00:00:00 [place] [facility] ical (Prevnar7) Branch DTAP 2001-03-06 Completed University of 00:00:00 [facility] HIB 4 Dose Schedule 2001-03-06 Completed Unive rsity of 00:00:00 [facility] Hep B, Adol or Pedi 2001-03-06 Completed Unive rsity of Dosage 00:00:00 [facility] Polio (IPV/OPV) 2001-03-06 Completed Universit y of 00:00:00 [facility] Pneumococcal 7 2001-03-06 Completed University of Conjugate, PCV7 00:00:00 [place] [facility] ical (Prevnar7) Branch DTAP 2001-03-06 Completed University of 00:00:00 [facility] HIB 4 Dose Schedule 2001-03-06 Completed Unive rsity of 00:00:00 [facility] Hep B, Adol or Pedi 2001-03-06 Completed Unive rsity of Dosage 00:00:00 [facility] Polio (IPV/OPV) 2001-03-06 Completed Universit y of 00:00:00 [facility] Pneumococcal 7 2001-03-06 Completed University of Conjugate, PCV7 00:00:00 [place] [facility] ical (Prevnar7) Branch DTAP 2001-03-06 Completed University of 00:00:00 [facility] HIB 4 Dose Schedule 2001-03-06 Completed Unive rsity of 00:00:00 [facility] Hep B, Adol or Pedi 2001-03-06 Completed Unive rsity of Dosage 00:00:00 [facility] Polio (IPV/OPV) 2001-03-06 Completed Universit y of 00:00:00 [facility] Pneumococcal 7 2001-03-06 Completed University of Conjugate, PCV7 00:00:00 [place] [facility] ical (Prevnar7) Branch DTAP 2000 Completed University of 00:00:00 [facility] HIB 4 Dose Schedule 2000 Completed Unive rsity of 00:00:00 [facility] Polio (IPV/OPV) 2000 Completed Universit y of 00:00:00 [facility] Pneumococcal 7 2000 Completed University of Conjugate, PCV7 00:00:00 [place] [facility] ical (Prevnar7) Branch DTAP 2000 Completed University of 00:00:00 [facility] HIB 4 Dose Schedule 2000 Completed Unive rsity of 00:00:00 [facility] Polio (IPV/OPV) 2000 Completed Universit y of 00:00:00 [facility] Pneumococcal 7 2000 Completed University of Conjugate, PCV7 00:00:00 [place] [facility] ical (Prevnar7) Branch DTAP 2000 Completed University of 00:00:00 [facility] HIB 4 Dose Schedule 2000 Completed Unive rsity of 00:00:00 [facility] Polio (IPV/OPV) 2000 Completed Universit y of 00:00:00 [facility] Pneumococcal 7 2000 Completed University of Conjugate, PCV7 00:00:00 [place] [facility] ical (Prevnar7) Branch DTAP 2000 Completed University of 00:00:00 [facility] HIB 4 Dose Schedule 2000 Completed Unive rsity of 00:00:00 [facility] Polio (IPV/OPV) 2000 Completed Universit y of 00:00:00 [facility] Pneumococcal 7 2000 Completed University of Conjugate, PCV7 00:00:00 [place] Med ical (Prevnar7) Branch DTAP 2000 Completed University of 00:00:00 [facility] DTAP 2000 Completed University of 00:00:00 [facility] DTAP 2000 Completed University of 00:00:00 [facility] DTAP 2000 Completed University of 00:00:00 [facility] Hep B, Adol or Pedi 2000 Completed Unive rsity of Dosage 00:00:00 [facility] Hep B, Adol or Pedi 2000 Completed Unive rsity of Dosage 00:00:00 [facility] Hep B, Adol or Pedi 2000 Completed Unive rsity of Dosage 00:00:00 [facility] Hep B, Adol or Pedi 2000 Completed Unive rsity of Dosage 00:00:00 [facility] Vital Signs Vital Name Observation Time Observation Value Comments Source Systolic blood 2021-11-30 16:05:00 118 mm[Hg] Univer sity of pressure [facility] Diastolic blood 2021-11-30 16:05:00 74 mm[Hg] Unive rsity of pressure [facility] Heart rate 2021-11-30 16:05:00 92 /min [facility] Body temperature 2021-11-30 16:05:[address] [facility] Respiratory rate 2021-11-30 16:05:00 18 /min [facility] Body height 2021-11-30 16:05:00 167.6 cm [facility] Body weight 2021-11-30 16:05:00 85.276 kg [facility] BMI 2021-11-30 16:05:00 30.34 kg/m2 [facility] Procedures Procedure Date / Time Performed Performing Clinician Wilson e DISCLOSURE AND CONSENT 2021-11-30 05:01:00 Doctor Unassigned, No [facility] MEDICAL & SURGICAL Name Medical Bran h PROCEDURES - FEMALM POCT TEST 2021-11-30 00:00:00 Sandra [facility] Encounters Start End Encounter Admission Attending Care Care Encounter Source Date/Time Date/Time Type Type Clinicians Facility Department ID 2022-01-11 2022-01-11 Outpatient [facility] [id number] Univers 10:30:00 10:30:00 SANDRA [id number] ity [facility] 2022-01-11 2022-01-11 Outpatient R [facility] [id number] Univers 10:30:00 10:30:00 SANDRA ity [facility] 2021-12-20 2021-12-20 Telephone Adum, [facility] [id number] Univers 00:00:00 00:00:00 Sandra SEXTON [id number] ity of [place] [id number] [id number] Ms dical N[place] [address] [place] [address] 2021-11-30 2021-11-30 Office Adum, [facility] [id number] [facility] [employer] 10:30:00 12:03:56 Visit Sandra Stuart CARLIE [id number] ity of [id number] PROF[place] [phone] Ms dical NAL [address] [place] [address] 2021-11-30 2021-11-30 Orders Doctor GARRET [id number] [employer] 00:00:00 00:00:00 Only Unassigned, DOLLY [id number] ity of [place] [facility] [id number] Marcelo as [phone] [address] Results Test Description Test Time Test Comments Results Result Comments Source POCT TEST 2021-11-30 16:42:00 Test Item Value Reference Range Interpretation Comme nts POCT PREG (test code = 1605) Negative On board controls acceptable with C Line (test code = 3574) Yes POCT PREG LOT # (test code = 3575) [facility]test [facility] = 3576[id number] 16:42:00 Test Item Value Reference Range Interpretation Comments POCT PREG (test code = 1605) Negative On board controls acceptable with C Yes Line (test code = 3574) POCT PREG LOT # (test code = 3575) POCT PREG TEST DATE (test code = 3576) [facility]
[2022-01-02 16:50] LABS: Urine Blood 2+ (Negative); Urine Glucose Negative (Negative); Urine Protein Negative (Negative); Urine Specific Gravity 1.025 (1.005-1.030); Urine pH 7.5 (5.0-7.0)
--- NOTE | 2022-01-02 17:16 | RAD REPORT ---
EXAM DESCRIPTION: US - Transvaginal Study Probe - 01/02/2022 4:58 pm CLINICAL HISTORY: ABD PAIN COMPARISON: Transvaginal Study Probe dated 12/11/2018 TECHNIQUE: Endovaginal sonography was performed. FINDINGS: Normal size uterus is present with no myometrial mass lesion identifiable. Multiple puncta te hyperechoic foci are seen in the endometrial cavity with posterior acoustic shadowing. This patter n is consistent with IUD placement. The IUD appears to be well positioned within the endometrial cavi ty. No suspicion for endometrial mass, polyp, hematoma or other significant endometrial process. Both ovaries are identified. Small follicles are seen with no dominant solid or cystic ovarian or adn exal finding. Doppler evaluation shows normal blood flow within the endometrial cavity. IMPRESSION: Uterus, ovaries and adnexa show no suspicious findings. IUD is in place and appears to be properly positioned.
[2022-01-02 17:38] LABS: Urine Specific Gravity/Preg 1.025 (1.005-1.030)
[2022-01-02 17:44] LABS: Urine Amorphous Sediment 1+ /HPF (NONE SEEN); Urine Bacteria 20-50 /HPF (<20); Urine Mucus LIGHT /HPF (NONE SEEN); Urine RBC <5 /HPF (NONE SEEN)
--- NOTE | 2022-01-02 18:01 | EDPHYS ---
Physician Documentation [facility] Name: Sienna Rodriguez Age: 21 yrs Sex: Female : 2000 Arrival Date: 01/02/2022 Time: 16:10 Bed DIS3 Private MD: ED Physician Mike Hightower HPI: 01/02 16:21 This 21 yrs old Female presents to ER via Unassigned with complaints of Urinary ms3 Problem, Abdominal Pain. 16:21 The patient presents with abdominal pain suprapubic. Onset: The symptoms/episode ms3 began/occurred 1 month(s) ago. The symptoms do not radiate. Associated signs and symptoms: Pertinent positives: low back pain, Pertinent negatives: fever. The symptoms are described as crampy. Modifying factors: The symptoms are alleviated by nothing, the symptoms are aggravated by nothing. Severity of pain: At its worst the pain was moderate in the emergency department the pain is unchanged. 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 - Social history:: Smoking status: Reported history of juuling and/or vaping. ROS: 16:21 Constitutional: Negative for fever, and chills. Neck: Negative for injury, pain, and ms3 swelling, Cardiovascular: Negative for chest pain, and palpitations. Respiratory: Negative for shortness of breath, cough, wheezing, and pleuritic chest pain, MS/Extremity: Negative for injury and deformity, Skin: Negative for injury, rash, and discoloration, Allergy/Immunology: Negative for hives, rash, and allergies. 16:21 All other systems are negative. Exam: 16:21 Constitutional: This is a well developed, well nourished patient who is awake, alert, ms3 and in no acute distress. Head/Face: Normocephalic, atraumatic. Neck: Trachea midline, no cervical lymphadenopathy. Supple, full range of motion without nuchal rigidity, or vertebral point tenderness. No Meningismus. Chest/axilla: Normal chest wall appearance and motion. Nontender with no deformity. Cardiovascular: Regular rate and rhythm with a normal S1 and S2. No gallops, murmurs, or rubs. Normal PMI, no JVD. No pulse deficits. Respiratory: Lungs have equal breath sounds bilaterally, clear to auscultation and percussion. No rales, rhonchi or wheezes noted. No increased work of breathing, no retractions or nasal flaring. Skin: Warm, dry with normal turgor. Normal color with no rashes, no lesions, and no evidence of cellulitis. MS/ Extremity: Pulses equal, no cyanosis. Neurovascular intact. Full, normal range of motion. Psych: Awake, alert, with orientation to person, place and time. Behavior, mood, and affect are within normal limits. 16:21 Abdomen/GI: Inspection: abdomen appears normal, Bowel sounds: normal, Palpation: abdomen is soft and non-tender, in the suprapubic area. Vital Signs: 16:34 BP 136 / 83; Pulse 101; Resp 18 S; Temp 99.0(TE); Pulse Ox 100% on R/A; Weight 86.18 kg jd3 (R); Height 5 ft. 7 in. (170.18 cm) (R); Pain 7/10; 17:55 BP 123 / 78; Pulse 80; Resp 14; Temp 97.6(O); Pulse Ox 98% on R/A; tw5 16:34 Body Mass Index 29.76 (86.18 kg, 170.18 cm) jd3 MDM: 17:24 Patient medically screened. ms3 18:01 Differential diagnosis: urinary tract infection, IUD malpositioned. ms3 18:03 Data reviewed: vital signs, nurses notes, lab test result(s), radiologic studies, ms3 ultrasound. Data interpreted: Pulse oximetry: on room air is 98 %. Interpretation: normal. Counseling: I had a detailed discussion with the patient and/or guardian regarding: the historical points, exam findings, and any diagnostic results supporting the discharge/admit diagnosis, lab results, radiology results, the need for outpatient follow up, to return to the emergency department if symptoms worsen or persist or if there are any questions or concerns that arise at home. ED course: Discussed labs, US, physical exam findings with patient. Patient to follow-up with her CARDIAC EXERCISE PHYSIOLOGIST in 2 to 3 days. Patient understands and agrees with plan. All questions were answered. Return precautions discussed include worsening symptoms, or any other concerns. On reevaluation patient symptoms improved, patient is alert and oriented x4, no apparent distress, nontoxic, ambulatory in emergency department, tolerating p.o.. 01/02 16:20 Order name: Urine Microscopic Only; Complete Time: 17:58 ms3 01/02 16:50 Order name: Urine Dipstick-Ancillary; Complete Time: 17:24 EDMS 01/02 16:44 Order name: Transvaginal Study Probe; Complete Time: 17:24 EDMS 01/02 17:34 Order name: Urine --Ancillary (enter results); Complete Time: 17:58 bd 01/02 17:46 Order name: Urine Culture EDMS 01/02 16:20 Order name: Urine Dipstick-Ancillary (obtain specimen); Complete Time: 17:23 ms3 Administered Medications: No medications were administered Disposition Summary: 01/02/22 18:01 Discharge Ordered Location: Home ms3 Condition: Stable ms3 Diagnosis - Lower abdominal pain, unspecified ms3 - UTI/ Urinary tract infection, site not specified ms3 Followup: ms3 - With: Private Physician - When: 2 - 3 days - Reason: Recheck today's complaints Discharge Instructions: - Discharge Summary Sheet ms3 - Urinary Tract Infection, Adult ms3 Forms: - Medication Reconciliation Form ms3 - Thank You Letter ms3 - Antibiotic Education ms3 - Prescription Opioid Use ms3 - Family Work Release tw5 Prescriptions: - Macrobid 100 mg Oral Capsule - take 1 capsule by ORAL route every 12 hours for 10 days; 20 capsule; Refills: ms3 0, Product Selection Permitted Signatures: Dispatcher Sonido Borges RN RN jd3 Mike Hightower DO DO ms3 Corrections: (The following items were deleted from the chart) 16:44 16:21 Pelvis Complete+US.RAD.BRZ ordered. JESÚS ESPINOSA
--- NOTE | 2022-01-02 18:01 | ER ---
Nurse's Notes [facility] Name: Sienna Rodriguez Age: 21 yrs Sex: Female : 2000 Arrival Date: 01/02/2022 Time: 16:10 Bed DIS3 Private MD: Diagnosis: Lower abdominal pain, unspecified;UTI/ Urinary tract infection, site not specified Presentation: 01/02 16:32 Chief complaint: Patient states: "I had an IUD placed in and it has been causing jd3 worsening symptoms since. lower back pain and abdominal pain.". Coronavirus screen: At this time, the client does not indicate any symptoms associated with coronavirus-19. Ebola Screen: No symptoms or risks identified at this time. Initial Sepsis Screen: Does the patient meet any 2 criteria? No. Patient's initial sepsis screen is negative. Does the patient have a suspected source of infection? No. Patient's initial sepsis screen is negative. Risk Assessment: Do you want to hurt yourself or someone else? Patient reports no desire to harm self or others. Onset of symptoms was December 05, 2021. 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 - Social history:: Smoking status: Reported history of juuling and/or vaping. Screenin:55 Abuse screen: Denies threats or abuse. Denies injuries from another. Nutritional tw5 screening: No deficits noted. Tuberculosis screening: No symptoms or risk factors identified. Fall Risk None identified. Assessment: 17:55 General: Appears in no apparent distress. Behavior is calm, cooperative, agitated. tw5 Pain: Pain currently is 3 out of 10 on a pain scale. Pain: Complains of pain in low back area. GI: Bowel sounds present X 4 quads. Abd is soft and non tender X 4 quads. Vital Signs: 16:34 BP 136 / 83; Pulse 101; Resp 18 S; Temp 99.0(TE); Pulse Ox 100% on R/A; Weight 86.18 kg jd3 (R); Height 5 ft. 7 in. (170.18 cm) (R); Pain 7/10; 17:55 BP 123 / 78; Pulse 80; Resp 14; Temp 97.6(O); Pulse Ox 98% on R/A; tw5 16:34 Body Mass Index 29.76 (86.18 kg, 170.18 cm) jd3 ED Course: 16:10 Patient arrived in ED. as 16:11 Mike Hightower DO is Attending Physician. ms3 16:33 Triage completed. jd3 16:34 Arm band placed on. jd3 17:00 Transvaginal Study Probe In Process Unspecified. EDMS 17:30 Urine Microscopic Only Sent. mb7 17:38 Siena Lema is Primary Nurse. tw5 17:55 Patient has correct armband on for positive identification. tw5 17:55 No provider procedures requiring assistance completed. Patient did not have IV access tw5 during this emergency room visit. Administered Medications: No medications were administered Medication: 17:55 VIS not applicable for this client. tw5 Outcome: 18:01 Discharge ordered by . ms3 18:07 Discharged to home ambulatory. tw5 18:07 Condition: good 18:07 Discharge instructions given to patient, Instructed on discharge instructions, follow up and referral plans. medication usage, Demonstrated understanding of instructions, follow-up care, medications, Prescriptions given X 1. 18:07 Patient left the ED. tw5 Signatures: Dispatcher [employer] Katalina Francois Jonathon, RN RN jd3 Mike Hightower DO DO ms3 Siena Lema tw5 Kristina Ferrari mb7
[2022-01-02 18:18] VITALS: BP 123/78; TEMP 97.6; O2SAT 98
== END 2022-01-02 18:07 | disposition home or self-care (01) ==
LOC: ER 16:08
DX: N39.0 Urinary tract infection, site not specified (principal); R10.30 Lower abdominal pain, unspecified; J45.909 Unspecified asthma, uncomplicated; Z88.8 Allergy status to other drugs, medicaments and biological substances; F17.290 Nicotine dependence, other tobacco product, uncomplicated
CPT/HCPCS: 76830; 81003; 81015; 81025; 87086; 87088; 99283

== ENCOUNTER 2022-04-12 09:37 | Emergency (ER) | payer SELFPAY ==
--- OUTSIDE RECORDS SUMMARY | 2022-04-12 09:42 | XMS REPORT | Continuity of Care Document ---
:2000 Author Organization [facility] t Address [address] [place] [address] Care Team Providers Name Role Phone Nesha Trevizo Primary Care Physician SANDRA PATTERSON Attending Clinician Unavailable FELICIANO ROBISON Attending Clinician Unavailable FELICIANO ROBISON Attending Clinician Unavailable Sandra Patterson MD Attending Clinician SALLIE OGDEN Attending Clinician Unavailable Nesha Trevizo Attending Clinician Doctor Unassigned, [place] Attending Clinician Unavailable Payers Payer Name Policy Type Policy Number Effective Date [id number]00 Problems Condition Condition Condition Status Onset Resolution Last Treating Co mments Source Name Details Category Date Date Treatment Clinician Date Elevated Elevated Disease Active Unive rs hemoglobin hemoglobin 4-08 it y of 00:00: [address] Branch Anxiety Anxiety Disease Active Univers and and 3-23 ity of depression depression 00:00: [facility] Obesity Obesity Disease Active Univers (BMI (BMI 1-08 ity of 30-39.9) 30-39.9) 00:00: [place] [address] Medical Branch Other Other Disease Active Univers general general 9-24 ity of counseling [place] advice and advice 00 Me dical for for Branch contracept contracept tomás tomás management management Irregular Irregular Disease Active Uni vers menstrual menstrual 9- ity of cycle cycle 00:00: [place] 00 Medical Branch Tobacco Tobacco Disease Active Univers use use 9- ity of disorder disorder 00:00: 00 Medical Branch Verruca Verruca Disease Active Overview: [facility] ers warts warts -11 Formattin ity of (infectiou (infectiou 00:00: g of this [place] s) s) 00 note Medical might be Branch different from the original. 08/22/2019 - s/p excision of a wart on her mons pubis. Pathology confirmed benign verrucous wart. Female Female Disease Active Overview: [facility] s infertilit infertilit 04-18 Formattin ity of y y 00:00: g of this [place] associated associated 00 note Me dical with with might be Branch anovulatio anovulatio different n n from the original. 04/15/19 - day 3 FSH 6.96, E2 4179 - HSG normal Dyspareuni Dyspareuni Disease Active [...] Depression Disease Active U nivers , , 11-08 ity of unspecifie unspecifie 00:00: [place] [...] Shortness of Univers in ty to Breath 04-03 ity of adverse 00:00: [place] reaction 00 Medical s Branch GABAPENT DRUG Active Anxiety Univers IN INGREDI 04-03 ity of 00:00: [place] [address] Medical Branch Social History Social Habit Start Date Stop Date Quantity Comments Source History of Cigarette Smoker Universi ty of tobacco use [facility] Exposure to 2021-11-20 2021-11-30 Not sure University of SARS-CoV-2 00:00:00 10:45:00 [facility] (event) Branch Alcohol intake 2021-11-03 2021-11-03 Ex-drinker [facility] 00:00:00 00:00:00 (finding) [facility] Tobacco use and 2021-11-02 2021-11-02 Smokeless tobacco Un iversity of exposure 00:00:00 00:00:00 non-user [facility] Alcohol Comment 2021-11-02 2021-11-02 2-3x a week Universi ty of 00:00:00 00:00:00 [place] [facility] History SDOH 2020-05-06 2020-05-06 99 University o f Alcohol Frequency 00:00:00 00:00:00 [facility] [place] [facility] edical Branch History SDOH 2020-05-06 2020-05-06 99 University o f Alcohol Std 00:00:00 00:00:00 [place] [facility] History SDIN 2020-05-06 2020-05-06 99 University o f Alcohol Binge 00:00:00 00:00:00 [place] [facility] Sex Assigned At 2000 2000 Universit y of 00:00:00 00:00:00 [facility] Smoking Status Start Date Stop Date Source Ex-smoker 2021-11-02 00:00:00 2021-11-02 00:00:00 Universi ty of [facility] Medications Ordered Filled Start Stop Current Ordering Indication Dosage Frequency Signature Comments Components Source Medication Medication Date Date Medication? Clinician (SIG) Name Name levonorgest 2021- No [id number] 1{devic Univers reL 4-20 04-20 e} ity of (MIRENA) 22:00: 20:50 [place] IUD 1 00 :00 [employer] Branch levonorgest 2021- No [id number] 1{devic 1 Device, Univers reL 4-20 04-20 e} Intrauteri ity of (MIRENA) 22:00: 20:50 ne, ONCE, Marcelo as IUD 1 00 :00 1 dose, On [employer] Wed Branch 11/30/21 at 1700, Routine levonorgest 2021- No [id number] 1{devic Univers reL 4-20 04-20 e} ity of (MIRENA) 22:00: 20:50 [place] IUD 1 00 :00 [employer] Branch levonorgest 2021- No [id number] 1{devic 1 Device, Univers reL 4-20 04-20 e} Intrauteri ity of (MIRENA) 22:00: 20:50 ne, ONCE, Marcel[place] as IUD 1 00 :00 1 dose, On [employer] Wed Branch 11/30/21 at 1700, Routine metroNIDAZO 2021- No [id number] 500mg Take 1 Univers LE 500 mg 3-25 04-20 tablet by ity of tablet 00:00: 00:00 mouth [place] 00 :00 every 12 Medical (twelve) Branch hours. metroNIDAZO 2021- No [id number] 500mg Take 1 Univers LE 500 mg 3-25 04-20 tablet by ity of tablet 00:00: 00:00 mouth [place] 00 :00 every 12 Medical (twelve) Branch hours. loratadine Yes [id number] 10mg Take 1 U nivers 10 mg 3-24 tablet by ity of tablet 00:00: mouth [place] 00 daily. Medical Branch benzonatate Yes [id number] 100mg Take 1 Univers (TESSALON 3-24 capsule by ity of PERLES) 100 00:00: mouth [place] mg capsule 00 every 8 Medica l (eight) Branch hours as needed for Cough. loratadine 0 Yes [id number] 10mg Take 1 U nivers 10 mg 3-24 tablet by ity of tablet 00:00: mouth [place] 00 daily. Medical Branch benzonatate 0 Yes [id number] 100mg Take 1 Univers (TESSALON 3-24 capsule by ity of PERLES) 100 00:00: mouth [place] mg capsule 00 every 8 Medica l (eight) Branch hours as needed for Cough. loratadine 2021-0 Yes [id number] 10mg Take 1 U nivers 10 mg 3-24 tablet by ity of tablet 00:00: mouth [place] 00 daily. Medical Branch benzonatate 2022-0 Yes [id number] 100mg Take 1 Univers (TESSALON 3-24 capsule by ity of PERLES) 100 00:00: mouth [place] mg capsule 00 every 8 Medica l (eight) Branch hours as needed for Cough. loratadine 2021-0 Yes [id number] 10mg Take 1 U nivers 10 mg 3-24 tablet by ity of tablet 00:00: mouth [place] 00 daily. Medical Branch benzonatate 2021-0 Yes [id number] 100mg Take 1 Univers (TESSALON 3-24 capsule by ity of PERLES) 100 00:00: mouth [place] mg capsule 00 every 8 Medica l (eight) Branch hours as needed for Cough. loratadine 2021-0 Yes [id number] 10mg Take 1 U nivers 10 mg 3-24 tablet by ity of tablet 00:00: mouth [place] 00 daily. Medical Branch benzonatate 2021-0 Yes [id number] 100mg Take 1 Univers (TESSALON 3-24 capsule by ity of PERLES) 100 00:00: mouth [place] mg capsule 00 every 8 Medica l (eight) Branch hours as needed for Cough. loratadine 0 Yes [id number] 10mg Take 1 U nivers 10 mg 3-24 tablet by ity of tablet 00:00: mouth [place] 00 daily. Medical Branch benzonatate 2021-0 Yes [id number] 100mg Take 1 Univers (TESSALON 3-24 capsule by ity of PERLES) 100 00:00: mouth [place] mg capsule 00 every 8 Medica l (eight) Branch hours as needed for Cough. loratadine 2021-0 Yes [id number] 10mg Take 1 U nivers 10 mg 3-24 tablet by ity of tablet 00:00: mouth [place] 00 daily. Medical Branch benzonatate 2021-0 Yes [id number] 100mg Take 1 Univers (TESSALON 3-24 capsule by ity of PERLES) 100 00:00: mouth [place] mg capsule 00 every 8 Medica l (eight) Branch hours as needed for Cough. Immunizations Ordered Immunization Filled Immunization Date Status Commen ts Source Name Name SARS-COV-2 COVID-19 2021-05-04 Completed Unive rsity of [facility] VACCINE 00:00:00 [facility] SARS-COV-2 COVID-19 2021-05-04 Completed Unive rsity of PFIZER VACCINE 00:00:00 [facility] SARS-COV-2 COVID-19 2021-05-04 Completed Unive rsity of PFIZER VACCINE 00:00:00 [facility] SARS-COV-2 COVID-19 2021-05-04 Completed Unive rsity of PFIZER VACCINE 00:00:00 [facility] SARS-COV-2 COVID-19 2021-05-04 Completed Unive rsity of PFIZER VACCINE 00:00:00 [facility] SARS-COV-2 COVID-19 2021-05-04 Completed Unive rsity of PFIZER VACCINE 00:00:00 [facility] SARS-COV-2 COVID-19 2021-05-04 Completed Unive rsity of PFIZER VACCINE 00:00:00 [facility] SARS-COV-2 COVID-19 2021-04-13 Completed Unive rsity of PFIZER VACCINE 00:00:00 [facility] SARS-COV-2 COVID-19 2021-04-13 Completed Unive rsity of PFIZER VACCINE 00:00:00 [facility] SARS-COV-2 COVID-19 2021-04-13 Completed Unive rsity of PFIZER VACCINE 00:00:00 [facility] SARS-COV-2 COVID-19 2021-04-13 Completed Unive rsity of PFIZER VACCINE 00:00:00 [facility] SARS-COV-2 COVID-19 2021-04-13 Completed Unive rsity of PFIZER VACCINE 00:00:00 [facility] SARS-COV-2 COVID-19 2021-04-13 Completed Unive rsity of PFIZER VACCINE 00:00:00 [facility] SARS-COV-2 COVID-19 2021-04-13 Completed Unive rsity of PFIZER VACCINE 00:00:00 [facility] Meningococcal 2019-04-10 Completed University of Polysaccharide 00:00:00 [facility] annel (groups A, C, Y and Branc h W-135) conjugate vaccine (MCV4P) Meningococcal 2019-04-10 Completed University of Polysaccharide 00:00:00 [facility] annel (groups A, C, Y and Branc h W-135) conjugate vaccine (MCV4P) Meningococcal 2019-04-10 Completed University of Polysaccharide 00:00:00 [place] [facility] annel (groups A, C, Y and Branc h W-135) conjugate vaccine (MCV4P) Meningococcal 2019-04-10 Completed University of Polysaccharide 00:00:00 [place] [facility] annel (groups A, C, Y and Branc h W-135) conjugate vaccine (MCV4P) Meningococcal 2019-04-10 Completed University of Polysaccharide 00:00:00 [place] [facility] (groups A, C, Y and Branc h W-135) conjugate vaccine (MCV4P) Meningococcal 2019-04-10 Completed University of Polysaccharide 00:00:00 [place] [facility] (groups A, C, Y and Branc h W-135) conjugate vaccine (MCV4P) Meningococcal 2019-04-10 Completed University of Polysaccharide 00:00:00 [place] [facility] (groups A, C, Y and Branc h W-135) conjugate vaccine (MCV4P) TDAP 2018-02-07 Completed University of 00:00:00 [facility] TDAP 2018-02-07 Completed University of 00:00:00 [facility] Branch TDAP 2018-02-07 Completed University of 00:00:00 [facility] Branch TDAP 2018-02-07 Completed University of 00:00:00 [facility] Branch TDAP 2018-02-07 Completed University of 00:00:00 [facility] Branch TDAP 2018-02-07 Completed University of 00:00:00 [facility] Branch TDAP 2018-02-07 Completed University of 00:00:00 [facility] Branch HPV 2013-07-24 Completed University of 00:00:00 [facility] Branch HPV 2013-07-24 Completed University of 00:00:00 [facility] Branch HPV 2013-07-24 Completed University of 00:00:00 [place] [facility] HPV 2013-07-24 Completed University of 00:00:00 [place] [facility] HPV 2013-07-24 Completed University of 00:00:00 [place] [facility] HPV 2013-07-24 Completed University of 00:00:00 [place] [facility] HPV 2013-07-24 Completed University of 00:00:00 [place] [facility] HPV 2013-04-16 Completed University of 00:00:00 [place] [facility] HPV 2013-04-16 Completed University of 00:00:00 [place] [facility] HPV 2013-04-16 Completed University of 00:00:00 [place] [facility] HPV 2013-04-16 Completed University of 00:00:00 [place] [facility] HPV 2013-04-16 Completed University of 00:00:00 [facility] HPV 2013-04-16 Completed University of 00:00:00 [facility] HPV 2013-04-16 Completed University of 00:00:00 [facility] HPV 2013-01-21 Completed University of 00:00:00 [facility] Meningococcal 2013-01-21 Completed University of Polysaccharide 00:00:00 [place] [facility] annel (groups A, C, Y and Branc h W-135) conjugate vaccine (MCV4P) TDAP 2013-01-21 Completed University of 00:00:00 [facility] HPV 2013-01-21 Completed University of 00:00:00 [facility] Meningococcal 2013-01-21 Completed University of Polysaccharide 00:00:00 [place] [facility] annel (groups A, C, Y and Branc h W-135) conjugate vaccine (MCV4P) TDAP 2013-01-21 Completed University of 00:00:00 [facility] HPV 2013-01-21 Completed University of 00:00:00 [facility] Meningococcal 2013-01-21 Completed University of Polysaccharide 00:00:00 [place] [facility] annel (groups A, C, Y and Branc h W-135) conjugate vaccine (MCV4P) TDAP 2013-01-21 Completed University of 00:00:00 [facility] HPV 2013-01-21 Completed University of 00:00:00 [facility] Meningococcal 2013-01-21 Completed University of Polysaccharide 00:00:00 [place] [facility] annel (groups A, C, Y and Branc h W-135) conjugate vaccine (MCV4P) TDAP 2013-01-21 Completed University of 00:00:00 [facility] HPV 2013-01-21 Completed University of 00:00:00 [facility] Meningococcal 2013-01-21 Completed University of Polysaccharide 00:00:00 [place] [facility] annel (groups A, C, Y and Branc h W-135) conjugate vaccine (MCV4P) TDAP 2013-01-21 Completed University of 00:00:00 [facility] HPV 2013-01-21 Completed University of 00:00:00 [facility] Meningococcal 2013-01-21 Completed University of Polysaccharide 00:00:00 [place] [facility] annel (groups A, C, Y and Branc h W-135) conjugate vaccine (MCV4P) TDAP 2013-01-21 Completed University of 00:00:00 [facility] HPV 2013-01-21 Completed University of 00:00:00 [facility] Meningococcal 2013-01-21 Completed University of Polysaccharide 00:00:00 [facility] annel (groups A, C, Y and Branc h W-135) conjugate vaccine (MCV4P) TDAP 2013-01-21 Completed University of 00:00:00 [facility] HEPATITIS A 2006-06-27 Completed University of 00:00:00 [facility] HEPATITIS A 2006-06-27 Completed University of 00:00:00 [facility] HEPATITIS A 2006-06-27 Completed University of 00:00:00 [facility] HEPATITIS A 2006-06-27 Completed University of 00:00:00 [facility] HEPATITIS A 2006-06-27 Completed University of 00:00:00 [facility] HEPATITIS A 2006-06-27 Completed University of 00:00:00 [facility] HEPATITIS A 2006-06-27 Completed University of 00:00:00 [facility] Hep B, Adol or Pedi 2005-11-15 Completed Unive rsity of Dosage 00:00:00 [facility] MMR 2005-11-15 Completed University of 00:00:00 [facility] Polio (IPV/OPV) 2005-11-15 Completed Universit y of 00:00:00 [facility] Varicella 2005-11-15 Completed University of (varivax)(chicken 00:00:00 [place] M edical pox) Branch Pneumococcal 7 2005-11-15 Completed University of Conjugate, PCV7 00:00:00 [place] [facility] ical (Prevnar7) Branch DTAP 2005-11-15 Completed University of 00:00:00 [facility] HEPATITIS A 2005-11-15 Completed University of 00:00:00 [facility] Hep B, Adol or Pedi 2005-11-15 Completed Unive rsity of Dosage 00:00:00 [facility] MMR 2005-11-15 Completed University of 00:00:00 [facility] Polio (IPV/OPV) 2005-11-15 Completed Universit y of 00:00:00 [facility] Varicella 2005-11-15 Completed University of (varivax)(chicken 00:00:00 [place] [facility] pox) Branch Pneumococcal 7 2005-11-15 Completed University of Conjugate, PCV7 00:00:00 [place] [facility] ical (Prevnar7) Branch DTAP 2005-11-15 Completed University of 00:00:00 [facility] HEPATITIS A 2005-11-15 Completed University of 00:00:00 [facility] Hep B, Adol or Pedi 2005-11-15 Completed Unive rsity of Dosage 00:00:00 [facility] MMR 2005-11-15 Completed University of 00:00:00 [facility] Polio (IPV/OPV) 2005-11-15 Completed Universit y of 00:00:00 [facility] Varicella 2005-11-15 Completed University of (varivax)(chicken 00:00:00 [place] [facility] pox) Branch Pneumococcal 7 2005-11-15 Completed University of Conjugate, PCV7 00:00:00 [place] [facility] (Prevnar7) Branch DTAP 2005-11-15 Completed University of 00:00:00 [facility] HEPATITIS A 2005-11-15 Completed University of 00:00:00 [facility] Hep B, Adol or Pedi 2005-11-15 Completed Unive rsity of Dosage 00:00:00 [facility] MMR 2005-11-15 Completed University of 00:00:00 [facility] Polio (IPV/OPV) 2005-11-15 Completed Universit y of 00:00:00 [facility] Varicella 2005-11-15 Completed University of (varivax)(chicken 00:00:00 [place] M [facility] pox) Branch Pneumococcal 7 2005-11-15 Completed University of Conjugate, PCV7 00:00:00 [place] [facility] (Prevnar7) Branch DTAP 2005-11-15 Completed University of 00:00:00 [facility] HEPATITIS A 2005-11-15 Completed University of 00:00:00 [facility] Hep B, Adol or Pedi 2005-11-15 Completed Unive rsity of Dosage 00:00:00 [facility] MMR 2005-11-15 Completed University of 00:00:00 [facility] Polio (IPV/OPV) 2005-11-15 Completed Universit y of 00:00:00 [facility] Varicella 2005-11-15 Completed University of (varivax)(chicken 00:00:00 [place] [facility] pox) Branch Pneumococcal 7 2005-11-15 Completed University of Conjugate, PCV7 00:00:00 [place] [facility] ical (Prevnar7) Branch DTAP 2005-11-15 Completed University of 00:00:00 [facility] HEPATITIS A 2005-11-15 Completed University of 00:00:00 [facility] Hep B, Adol or Pedi 2005-11-15 Completed Unive rsity of Dosage 00:00:00 [facility] MMR 2005-11-15 Completed University of 00:00:00 [facility] Polio (IPV/OPV) 2005-11-15 Completed Universit y of 00:00:00 [facility] Varicella 2005-11-15 Completed University of (varivax)(chicken 00:00:00 [place] [facility] pox) Branch Pneumococcal 7 2005-11-15 Completed University of Conjugate, PCV7 00:00:00 [place] [facility] (Prevnar7) Branch DTAP 2005-11-15 Completed University of 00:00:00 [facility] HEPATITIS A 2005-11-15 Completed University of 00:00:00 [facility] Hep B, Adol or Pedi 2005-11-15 Completed Unive rsity of Dosage 00:00:00 [facility] MMR 2005-11-15 Completed University of 00:00:00 [facility] Polio (IPV/OPV) 2005-11-15 Completed Universit y of 00:00:00 [facility] Varicella 2005-11-15 Completed University of (varivax)(chicken 00:00:00 [place] [facility] pox) Branch Pneumococcal 7 2005-11-15 Completed University of Conjugate, PCV7 00:00:00 [place] [facility] (Prevnar7) Branch DTAP 2005-11-15 Completed University of 00:00:00 [facility] HEPATITIS A 2005-11-15 Completed University of 00:00:00 [facility] Varicella 2001-11-18 Completed University of (varivax)(chicken 00:00:00 [...] Varicella 2001-11-18 Completed University of (varivax)(chicken 00:00:00 [facility] [place] [facility] edical pox) Branch Hep B, Adol or Pedi 2001 Completed Unive rsity of Dosage 00:00:00 [facility] MMR 2001 Completed University of 00:00:00 [facility] Polio (IPV/OPV) 2001 Completed Universit y of 00:00:00 [facility] Pneumococcal 7 2001 Completed University of Conjugate, PCV7 00:00:00 [place] [facility] (Prevnar7) Branch HIB 4 Dose Schedule 2001 Completed Unive rsity of 00:00:00 [facility] Hep B, Adol or Pedi 2001 Completed Unive rsity of Dosage 00:00:00 [facility] MMR 2001 Completed University of 00:00:00 [facility] Polio (IPV/OPV) 2001 Completed Universit y of 00:00:00 [facility] Pneumococcal 7 2001 Completed University of Conjugate, PCV7 00:00:00 [place] [facility] (Prevnar7) Branch HIB 4 Dose Schedule 2001 Completed Unive rsity of 00:00:00 [facility] Hep B, Adol or Pedi 2001 Completed Unive rsity of Dosage 00:00:00 [facility] MMR 2001 Completed University of 00:00:00 [facility] Polio (IPV/OPV) 2001 Completed Universit y of 00:00:00 [facility] Pneumococcal 7 2001 Completed University of Conjugate, PCV7 00:00:00 [place] [facility] (Prevnar7) Branch HIB 4 Dose Schedule 2001 Completed Unive rsity of 00:00:00 [facility] Hep B, Adol or Pedi 2001 Completed Unive rsity of Dosage 00:00:00 [facility] MMR 2001 Completed University of 00:00:00 [facility] Polio (IPV/OPV) 2001 Completed Universit y of 00:00:00 [facility] Pneumococcal 7 2001 Completed University of Conjugate, PCV7 00:00:00 [place] [facility] ical (Prevnar7) Branch HIB 4 Dose Schedule 2001 Completed Unive rsity of 00:00:00 [facility] Hep B, Adol or Pedi 2001 Completed Unive rsity of Dosage 00:00:00 [facility] MMR 2001 Completed University of 00:00:00 [facility] Polio (IPV/OPV) 2001 Completed Universit y of 00:00:00 [facility] Pneumococcal 7 2001 Completed University of Conjugate, PCV7 00:00:00 [place] [facility] (Prevnar7) Branch HIB 4 Dose Schedule 2001 Completed Unive rsity of 00:00:00 [facility] Hep B, Adol or Pedi 2001 Completed Unive rsity of Dosage 00:00:00 [facility] MMR 2001 Completed University of 00:00:00 [facility] Polio (IPV/OPV) 2001 Completed Universit y of 00:00:00 [facility] Pneumococcal 7 2001 Completed University of Conjugate, PCV7 00:00:00 [place] [facility] (Prevnar7) Branch HIB 4 Dose Schedule 2001 Completed Unive rsity of 00:00:00 [facility] Hep B, Adol or Pedi 2001 Completed Unive rsity of Dosage 00:00:00 [facility] MMR 2001 Completed University of 00:00:00 [facility] Polio (IPV/OPV) 2001 Completed Universit y of 00:00:00 [facility] Pneumococcal 7 2001 Completed University of Conjugate, PCV7 00:00:00 [place] [facility] (Prevnar7) Branch HIB 4 Dose Schedule 2001 Completed Unive rsity of 00:00:00 [facility] Pneumococcal 7 2001-05-10 Completed University of Conjugate, PCV7 00:00:00 [place] [facility] (Prevnar7) Branch DTAP 2001-05-10 Completed University of 00:00:00 [facility] HIB 4 Dose Schedule 2001-05-10 Completed Unive rsity of 00:00:00 [facility] Pneumococcal 7 2001-05-10 Completed University of Conjugate, PCV7 00:00:00 [place] [facility] (Prevnar7) Branch DTAP 2001-05-10 Completed University of 00:00:00 [facility] HIB 4 Dose Schedule 2001-05-10 Completed Unive rsity of 00:00:00 [facility] Pneumococcal 7 2001-05-10 Completed University of Conjugate, PCV7 00:00:00 [place] [facility] (Prevnar7) Branch DTAP 2001-05-10 Completed University of 00:00:00 [facility] HIB 4 Dose Schedule 2001-05-10 Completed Unive rsity of 00:00:00 [facility] Pneumococcal 7 2001-05-10 Completed University of Conjugate, PCV7 00:00:00 [place] [facility] (Prevnar7) Branch DTAP 2001-05-10 Completed University of 00:00:00 [facility] HIB 4 Dose Schedule 2001-05-10 Completed Unive rsity of 00:00:00 [facility] Pneumococcal 7 2001-05-10 Completed University of Conjugate, PCV7 00:00:00 [place] [facility] (Prevnar7) Branch DTAP 2001-05-10 Completed University of 00:00:00 [facility] HIB 4 Dose Schedule 2001-05-10 Completed Unive rsity of 00:00:00 [facility] Pneumococcal 7 2001-05-10 Completed University of Conjugate, PCV7 00:00:00 [place] [facility] ([facility] DTAP 2001-05-10 Completed University of 00:00:00 [facility] HIB 4 Dose Schedule 2001-05-10 Completed Unive rsity of 00:00:00 [facility] Pneumococcal 7 2001-05-10 Completed University of Conjugate, PCV7 00:00:00 [place] [facility] (Pre[facility] DTAP 2001-05-10 Completed University of 00:00:00 [facility] HIB 4 Dose Schedule 2001-05-10 Completed Unive rsity of 00:00:00 [facility] Hep B, Adol or Pedi 2001-03-06 Completed Unive rsity of Dosage 00:00:00 [facility] Polio (IPV/OPV) 2001-03-06 Completed Universit y of 00:00:00 [facility] Pneumococcal 7 2001-03-06 Completed University of Conjugate, PCV7 00:00:00 [place] [facility] (Pre[facility] DTAP 2001-03-06 Completed University of 00:00:00 [facility] HIB 4 Dose Schedule 2001-03-06 Completed Unive rsity of 00:00:00 [facility] Hep B, Adol or Pedi 2001-03-06 Completed Unive rsity of Dosage 00:00:00 [facility] Polio (IPV/OPV) 2001-03-06 Completed Universit y of 00:00:00 [facility] Pneumococcal 7 2001-03-06 Completed University of Conjugate, PCV7 00:00:00 [place] [facility] ([facility] DTAP 2001-03-06 Completed University of 00:00:00 [facility] HIB 4 Dose Schedule 2001-03-06 Completed Unive rsity of 00:00:00 [facility] Hep B, Adol or Pedi 2001-03-06 Completed Unive rsity of Dosage 00:00:00 [facility] Polio (IPV/OPV) 2001-03-06 Completed Universit y of 00:00:00 [facility] Pneumococcal 7 2001-03-06 Completed University of Conjugate, PCV7 00:00:00 [place] [facility] (Pre[facility] DTAP 2001-03-06 Completed University of 00:00:00 [facility] HIB 4 Dose Schedule 2001-03-06 Completed Unive rsity of 00:00:00 [facility] Hep B, Adol or Pedi 2001-03-06 Completed Unive rsity of Dosage 00:00:00 [facility] Polio (IPV/OPV) 2001-03-06 Completed Universit y of 00:00:00 [facility] Pneumococcal 7 2001-03-06 Completed University of Conjugate, PCV7 00:00:00 [place] [facility] ([facility] DTAP 2001-03-06 Completed University of 00:00:00 [facility] HIB 4 Dose Schedule 2001-03-06 Completed Unive rsity of 00:00:00 [facility] Hep B, Adol or Pedi 2001-03-06 Completed Unive rsity of Dosage 00:00:00 [facility] Polio (IPV/OPV) 2001-03-06 Completed Universit y of 00:00:00 [facility] Pneumococcal 7 2001-03-06 Completed University of Conjugate, PCV7 00:00:00 [place] [facility] DTAP 2001-03-06 Completed University of 00:00:00 [facility] HIB 4 Dose Schedule 2001-03-06 Completed Unive rsity of 00:00:00 [facility] Hep B, Adol or Pedi 2001-03-06 Completed Unive rsity of Dosage 00:00:00 [facility] Polio (IPV/OPV) 2001-03-06 Completed Universit y of 00:00:00 [facility] Pneumococcal 7 2001-03-06 Completed University of Conjugate, PCV7 00:00:00 [place] [facility] ([facility] DTAP 2001-03-06 Completed University of 00:00:00 [facility] HIB 4 Dose Schedule 2001-03-06 Completed Unive rsity of 00:00:00 [facility] Hep B, Adol or Pedi 2001-03-06 Completed Unive rsity of Dosage 00:00:00 [facility] Polio (IPV/OPV) 2001-03-06 Completed Universit y of 00:00:00 [facility] Pneumococcal 7 2001-03-06 Completed University of Conjugate, PCV7 00:00:00 [place] [facility] ([facility] DTAP 2001-03-06 Completed University of 00:00:00 [facility] HIB 4 Dose Schedule 2001-03-06 Completed Unive rsity of 00:00:00 [facility] Polio (IPV/OPV) 2000 Completed Universit y of 00:00:00 [facility] Pneumococcal 7 2000 Completed University of Conjugate, PCV7 00:00:00 [place] [facility] (Pre[facility] DTAP 2000 Completed University of 00:00:00 [facility] HIB 4 Dose Schedule 2000 Completed Unive rsity of 00:00:00 [facility] Polio (IPV/OPV) 2000 Completed Universit y of 00:00:00 [facility] Pneumococcal 7 2000 Completed University of Conjugate, PCV7 00:00:00 [place] [facility] (Prevn[facility] DTAP 2000 Completed University of 00:00:00 [facility] HIB 4 Dose Schedule 2000 Completed Unive rsity of 00:00:00 [facility] Polio (IPV/OPV) 2000 Completed Universit y of 00:00:00 [facility] Pneumococcal 7 2000 Completed University of Conjugate, PCV7 00:00:00 [place] [facility] (Prevn[facility] DTAP 2000 Completed University of 00:00:00 [facility] HIB 4 Dose Schedule 2000 Completed Unive rsity of 00:00:00 [facility] Polio (IPV/OPV) 2000 Completed Universit y of 00:00:00 [facility] Pneumococcal 7 2000 Completed University of Conjugate, PCV7 00:00:00 [place] [facility] (Prevn[facility] DTAP 2000 Completed University of 00:00:00 [facility] HIB 4 Dose Schedule 2000 Completed Unive rsity of 00:00:00 [facility] Polio (IPV/OPV) 2000 Completed Universit y of 00:00:00 [facility] Pneumococcal 7 2000 Completed University of Conjugate, PCV7 00:00:00 [place] [facility] DTAP 2000 Completed University of 00:00:00 [facility] HIB 4 Dose Schedule 2000 Completed Unive rsity of 00:00:00 [facility] Polio (IPV/OPV) 2000 Completed Universit y of 00:00:00 [facility] Pneumococcal 7 2000 Completed University of Conjugate, PCV7 00:00:00 [place] [facility] DTAP 2000 Completed University of 00:00:00 [facility] HIB 4 Dose Schedule 2000 Completed Unive rsity of 00:00:00 [facility] Polio (IPV/OPV) 2000 Completed Universit y of 00:00:00 [facility] Pneumococcal 7 2000 Completed University of Conjugate, PCV7 00:00:00 [place] [facility] DTAP 2000 Completed University of 00:00:00 [facility] HIB 4 Dose Schedule 2000 Completed Unive rsity of 00:00:00 [facility] DTAP 2000 Completed University of 00:00:00 [facility] DTAP 2000 Completed University of 00:00:00 [facility] DTAP 2000 Completed University of 00:00:00 [facility] DTAP 2000 Completed University of 00:00:00 [facility] DTAP 2000 Completed University [facility] 00:00:00 [facility] DTAP 2000 Completed University of 00:00:00 [facility] DTAP 2000 Completed University of 00:00:00 [facility] Hep B, Adol or Pedi 2000 Completed Unive rsity of Dosage 00:00:00 [facility] Hep B, Adol or Pedi 2000 Completed Unive rsity of Dosage 00:00:00 [facility] Hep B, Adol or Pedi 2000 Completed Unive rsity of Dosage 00:00:00 [facility] Hep B, Adol or Pedi 2000 Completed Unive rsity of Dosage 00:00:00 [facility] Hep B, Adol or Pedi 2000 Completed Unive rsity of Dosage 00:00:00 [facility] Hep B, Adol or Pedi 2000 Completed Unive rsity of Dosage 00:00:00 [facility] Hep B, Adol or Pedi 2000 Completed Unive rsity of Dosage 00:00:00 [facility] Vital Signs Vital Name Observation Time Observation Value Comments Source Systolic blood 2021-11-30 16:05:00 118 mm[Hg] Univer sity of pressure [facility] Diastolic blood 2021-11-30 16:05:00 74 mm[Hg] Unive rsity of pressure [facility] Heart rate 2021-11-30 16:05:00 92 /min [facility] Body temperature 2021-11-30 16:05:00 36.56 Es [facility] Respiratory rate 2021-11-30 16:05:00 18 /min [facility] Body height 2021-11-30 16:05:00 167.6 cm [facility] Body weight 2021-11-30 16:05:00 85.276 kg [facility] BMI 2021-11-30 16:05:00 30.34 kg/m2 [facility] Procedures Procedure Date / Time Performed Performing Clinician Ivanna e DISCLOSURE AND CONSENT 2021-11-30 05:01:00 Doctor Unassigned, No [facility] MEDICAL & SURGICAL Name Medical Branc h PROCEDURES - FEMALM POCT TEST 2021-11-30 00:00:00 Sandra Pattersoni ty [facility] Encounters Start End Encounter Admission Attending Care Care Encounter Source Date/Time Date/Time Type Type Clinicians Facility Department ID 2022-11-03 2022-11-03 Outpatient R [facility] [id number] Univers 13:30:00 13:30:00 [id number]22-04-10 Outpatient R ALEMTIFFANYSHADM FELICIANO [facility] B [id number] Univers 11:00:00 11:00:00 [id number] 2022-04-10 Outpatient R DIANADM FELICIANO [facility] B [id number] Univers 11:00:00 11:00:00 FELICIANO ROBISON [facility] 2022-04-07 2022-04-07 [facility] [id number] Univers 00:00:00 00:00:00 Sandra SEXTON [id number] ity of [facility] [id number] [place] [address] 2022-01-19 2022-01-19 Outpatient R [facility] [id number] Univers 13:30:00 13:30:00 SALLIE [id number] ity o f [facility] 2022-01-18 2022-01-18 [facility] [id number] Univers 00:00:00 00:00:00 Sandra SEXTON [id number] [place]y of [id number] [place] 2022-01-18 2022-01-18 [facility] [id number] Univers 00:00:00 00:00:00 Nesha SINCLAIR [id number] i ty of [place] [id number] Marcelo as MIRTHA?BLEA [id number] [place] dicvelma HURTADO 044 [facility] OFFICE [facility] 2022-01-11 2022-01-11 Outpatient R ADUM, [facility] [id number] Univers 10:30:00 10:30:00 SANDRA ity [facility] 2022-01-11 2022-01-11 Outpatient R ADUM, [facility] [id number] Univers 10:30:00 10:30:00 SANDRA [id number] ity [facility] 2021-12-20 2021-12-20 Telephone Adum, [facility] [id number] Univers 00:00:00 00:00:00 Sandra Narciso SEXTON [id number] [id number] [id number] [place] N[place] [address] [place] [address] 2021-11-30 2021-11-30 Office Adum, [facility] [id number] Univers 10:30:00 12:03:56 Visit Sandra SEXTON [id number] ity of [facility] [id number] [id number] [place] dical NAL [address] [place] [address] 2021-11-30 2021-11-30 Orders Doctor GARRET [id number] Univers 00:00:00 00:00:00 Only Unassigned, DOLLY [id number] ity of [place] [facility] [id number] Marcelo as [phone] [address] Results Test Description Test Time Test Comments Results Result Comments Source POCT TEST 2021-11-30 16:42:00 Test Item Value Reference Range Interpretation Comme nts POCT PREG (test code = 1605) Negative On board controls acceptable with C Line (test code = 3574) Yes POCT PREG LOT # (test code = 3575) POCT PREG TEST DATE (test code = 3576) [id number] 16:42:00 Test Item Value Reference Range Interpretation Comments POCT PREG (test code = 1605) Negative On board controls acceptable with C Yes Line (test code = 3574) POCT PREG LOT # (test code = 3575) POCT PREG TEST DATE (test code = 3576) [facility]
--- NOTE | 2022-04-12 11:44 | ER ---
Nurse's Notes [facility] Name: Sienna Rodriguez Age: 21 yrs Sex: Female : 2000 Arrival Date: 04/12/2022 Time: 09:40 Bed 12 Private MD: Diagnosis: Acute pharyngitis, unspecified Presentation: 04/12 10:16 Chief complaint: Patient states: sore throat that started Sunday 04/08. reports tp1 difficulty swallowing and breathing when laying down. mild congestion that started Saturday 04/07. rates pain 5/10. Coronavirus screen: Vaccine status: Patient reports receiving the 2nd dose of the covid vaccine. Ebola Screen: Patient negative for fever greater than or equal to 101.5 degrees Fahrenheit, and additional compatible Ebola Virus Disease symptoms Patient denies exposure to infectious person. Patient denies travel to an Ebola-affected area in the 21 days before illness onset. Initial Sepsis Screen: Does the patient meet any 2 criteria? No. Patient's initial sepsis screen is negative. Does the patient have a suspected source of infection? No. Patient's initial sepsis screen is negative. Risk Assessment: Do you want to hurt yourself or someone else? Patient reports no desire to harm self or others. Onset of symptoms was April 08, 2022. 10:16 Method Of Arrival: Ambulatory tp1 10:16 Acuity: GATO 4 tp1 Triage Assessment: 10:19 General: Appears in no apparent distress. comfortable, Behavior is calm, cooperative. tp1 Pain: Complains of pain in throat Pain currently is 5 out of 10 on a pain scale. Quality of pain is described as sharp, Pain began Sunday 04/08. EENT: Throat is reddened. Respiratory: Airway is patent Respiratory effort is even, unlabored. GI: Patient currently denies nausea, vomiting. 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 - Social history:: Smoking status: Reported history of juuling and/or vaping. Screenin:45 Abuse screen: Denies threats or abuse. Nutritional screening: No deficits noted. jd3 Tuberculosis screening: No symptoms or risk factors identified. Fall Risk Ambulatory Aid- None/Bed Rest/Nurse Assist (0 pts). Gait- Normal/Bed Rest/Wheelchair (0 pts) Mental Status- Oriented to own ability (0 pts). Total Mccormick Fall Scale indicates No Risk (0-24 pts). Assessment: 10:44 General: Appears in no apparent distress. comfortable, Behavior is calm, cooperative, jd3 appropriate for age. Pain: Complains of pain in throat Quality of pain is described as aching, tender. Neuro: Camp Agitation-Sedation Scale (RASS): 0 - Alert and Calm Level of Consciousness is awake, alert, obeys commands, Oriented to person, place, time, situation. Cardiovascular: Capillary refill < 3 seconds Patient's skin is warm and dry. Respiratory: Airway is patent Respiratory effort is even, unlabored, Respiratory pattern is regular, symmetrical, Denies cough, shortness of breath. GI: No signs and/or symptoms were reported involving the gastrointestinal system. : No signs and/or symptoms were reported regarding the genitourinary system. EENT: Throat is reddened. Derm: Skin is intact, Skin is dry, Skin is normal, Skin temperature is warm. Musculoskeletal: Circulation, motion, and sensation intact. Range of motion: intact in all extremities. Vital Signs: 10:16 BP 128 / 90; Pulse 77; Resp 16; Temp 97.9; Pulse Ox 100% on R/A; Weight 83.91 kg; tp1 Height 5 ft. 7 in. (170.18 cm); 12:07 BP 125 / 85; Pulse 78; Resp 18; Pulse Ox 99% ; kb3 10:16 Body Mass Index 28.97 (83.91 kg, 170.18 cm) tp1 ED Course: 09:40 Patient arrived in ED. rg4 09:45 Natalio Tello PA is PHCP. cp 09:45 Mike Hightower DO is Attending Physician. cp 10:19 Triage completed. tp1 10:19 Arm band placed on. tp1 10:41 Sonido Laurent, TOM is Primary Nurse. jd3 10:41 [place] Screen Profile Sent. tp1 10:41 Strep Sent. tp1 10:41 Initial lab(s) drawn, by me, sent to lab. Strep swab sent to lab. tp1 10:45 Patient has correct armband on for positive identification. Bed in low position. Call jd3 light in reach. Side rails up X 1. Pulse ox on. NIBP on. 12:07 No provider procedures requiring assistance completed. Patient did not have IV access kb3 during this emergency room visit. Administered Medications: No medications were administered Medication: 10:45 VIS not applicable for this client. jd3 Outcome: 11:44 Discharge ordered by . corinne 12:07 Discharged to home ambulatory. kb3 12:07 Condition: stable 12:07 Discharge instructions given to patient, Instructed on discharge instructions, follow up and referral plans. medication usage, Demonstrated understanding of instructions, follow-up care, medications, Prescriptions given X 1. 12:08 Patient left the ED. kb3 Signatures: Natalio Tello PA PA cp Garcia, Rubi rg4 Sonido Lauretn RN RN jd3 Siena Manuel RN RN tp1 Valentina Ortiz RN RN kb3
--- NOTE | 2022-04-12 11:44 | EDPHYS ---
Physician Documentation [facility] Name: Sienna Rodriguez Age: 21 yrs Sex: Female : 2000 Arrival Date: 04/12/2022 Time: 09:40 Bed 12 Private MD: ED Physician Mike Hightower HPI: 04/12 10:16 This 21 yrs old Female presents to ER via Unassigned with complaints of Sore Throat. cp 10:16 The patient presents with sore throat. The patient describes throat pain as constant. cp Onset: The symptoms/episode began/occurred 1 week(s) ago. Severity of symptoms: in the emergency department the symptoms are unchanged. Associated signs and symptoms: Pertinent negatives fever. Reports intimate contact with man who recently tested positive for mononucleosis. Declines testing for COVID-19 at this time. 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 - Social history:: Smoking status: Reported history of juuling and/or vaping. ROS: 10:20 Constitutional: Negative for body aches, chills, fever, poor PO intake. cp 10:20 Eyes: Negative for injury, pain, redness, and discharge. cp 10:20 ENT: Positive for sore throat, Negative for drainage from ear(s), ear pain, rhinorrhea, sinus congestion, difficulty swallowing, difficulty handling secretions. 10:20 Neck: Negative for pain with movement, pain at rest, stiffness. 10:20 Respiratory: Negative for cough, shortness of breath, wheezing. 10:20 Abdomen/GI: Negative for vomiting, diarrhea, constipation. 10:20 Skin: Negative for cellulitis, rash. 10:20 Neuro: Negative for altered mental status, headache. 10:20 All other systems are negative. Exam: 10:25 Constitutional: The patient appears in no acute distress, alert, awake, non-toxic, well cp developed, well nourished. 10:25 Head/Face: Normocephalic, atraumatic. cp 10:25 Eyes: Periorbital structures: appear normal, Conjunctiva: normal, no exudate, no injection, Sclera: no appreciated abnormality, Lids and lashes: appear normal, bilaterally. 10:25 ENT: External ear(s): are unremarkable, Ear canal(s): are normal, clear, TM's: dullness, bilaterally, Nose: is normal, Mouth: is normal, Posterior pharynx: Airway: no evidence of obstruction, patent, Tonsils: no enlargement, no erythema, no exudate, swelling, is not appreciated, erythema, that is mild, exudate, is not appreciated, Voice: is normal. 10:25 Neck: ROM/movement: is normal, is supple, without pain, no range of motions limitations, no meningismus. 10:25 Chest/axilla: Inspection: normal. 10:25 Cardiovascular: Rate: normal, Rhythm: regular. 10:25 Respiratory: the patient does not display signs of respiratory distress, Respirations: normal, no use of accessory muscles, no retractions, labored breathing, is not present, Breath sounds: are clear throughout, no decreased breath sounds, no stridor, no wheezing. 10:25 Abdomen/GI: Inspection: abdomen appears normal, Palpation: abdomen is soft and non-tender, in all quadrants. 10:25 Skin: no rash present. Vital Signs: 10:16 BP 128 / 90; Pulse 77; Resp 16; Temp 97.9; Pulse Ox 100% on R/A; Weight 83.91 kg; tp1 Height 5 ft. 7 in. (170.18 cm); 12:07 BP 125 / 85; Pulse 78; Resp 18; Pulse Ox 99% ; kb3 10:16 Body Mass Index 28.97 (83.91 kg, 170.18 cm) tp1 MDM: 10:24 Patient medically screened. cp 11:44 Data reviewed: vital signs, nurses notes, lab test result(s). cp 11:44 Differential diagnosis: group A strep tonsillitis, mononucleosis, peritonsillar abscess cp pharyngitis, retropharyngeal abcess. Counseling: I had a detailed discussion with the patient and/or guardian regarding: the historical points, exam findings, and any diagnostic results supporting the discharge/admit diagnosis, lab results, to return to the emergency department if symptoms worsen or persist or if there are any questions or concerns that arise at home. 04/12 10:18 Order name: [place] Screen Profile; Complete Time: 12:26 cp 04/12 10:18 Order name: Strep; Complete Time: 12:26 cp 04/12 11:35 Order name: Throat Culture EDMS Administered Medications: No medications were administered Disposition: 12:27 Co-signature as Attending Physician, Mike Hightower DO I agree with the assessment and ms3 plan of care. Disposition Summary: 04/12/22 11:44 Discharge Ordered Location: Home cp Problem: new cp Symptoms: have improved cp Condition: Stable cp Diagnosis - Acute pharyngitis, unspecified cp Followup: cp - With: Private Physician - When: 2 - 3 days - Reason: Worsening of condition Discharge Instructions: - Discharge Summary Sheet cp - Pharyngitis cp - Sore Throat cp Forms: - Medication Reconciliation Form cp - Thank You Letter cp - Antibiotic Education cp - Prescription Opioid Use cp Prescriptions: - Lidocaine Viscous - take 5 milliliter by ORAL route every 4-6 hours; 1 bottle; Refills: 0, Product cp Selection Permitted Signatures: Dispatcher [employer] EDMS Natalio Tello PA PA cp Sims, Marcus, DO DO ms3 Siena Manuel RN RN tp1 Corrections: (The following items were deleted from the chart) 10:18 10:16 Reports intimate contact with man who recently tested positive for mononucleosis. cp cp
[2022-04-12 12:14] VITALS: TEMP 97.9
[2022-04-12 12:16] VITALS: BP 125/85; O2SAT 99
== END 2022-04-12 12:08 | disposition home or self-care (01) ==
LOC: ER 09:37
DX: J02.9 Acute pharyngitis, unspecified (principal); Z88.8 Allergy status to other drugs, medicaments and biological substances
CPT/HCPCS: 36415; 86308; 87070; 87081

== ENCOUNTER 2023-04-10 09:09 | Emergency (ER) | payer SELFPAY ==
--- OUTSIDE RECORDS SUMMARY | 2023-04-10 09:23 | XMS REPORT | Continuity of Care Document ---
:2000 Author Organization [facility] t Address [address] [facility] [address] [place] [address] Care Team Providers Name Role Phone Sallie Lawrence Primary Care Physician [phone] SALLIE REYNA Attending Clinician Unavailable Sallie Lawrence Attending Clinician [phone] SANDRA WANG Attending Clinician Unavailable CHANTELLE BAUER Attending Clinician Unavailable Doctor Unassigned, [place] Attending Clinician Unavailable HAILEY WARE Attending Clinician Unavailable Hailey Raza Attending Clinician NORY TOLENTINO Attending Clinician Unavailable FELICIANO ROBISON Attending Clinician Unavailable FELICIANO ROBISON Attending Clinician Unavailable Sandra Wang MD Attending Clinician NESHA GONZALEZ Attending Clinician Unavailable Nesha Trevizo Attending Clinician Lab, Ang - Db Attending Clinician Unavailable 2, [facility] Attending Clinician Unavailable [facility] Attending Clinician Unavailable Randa LYLEP, Nory Vaz Attending Clinician Sunil Montoya DO Attending Clinician Mikhail RADIO SALES ACCOUNT EXECUTIVE, Zac Toledo Attending Clinician GOPAL TOLBERT Attending Clinician Unavailable ZAC ELIZONDO Attending Clinician Unavailable Chandan PLASENCIA, Shu Attending Clinician Tomasz MORALES, Gopal Attending Clinician Rashi Hunter MD Attending Clinician Amber Farnsworth MD Attending Clinician Pob, [facility] Main Attending Clinician Unavailable Nurse, [facility] Attending Clinician Unavailable RASHI HUNTER Attending Clinician Unavailable RASHI HUNTER Attending Clinician Unavailable 1, [facility] Attending Clinician Unavailable RASHI HUNTER Admitting Clinician Unavailable Payers Payer Name Policy Type Policy Number Effective Date Expiration Date S kushal [facility] [id number] 2022 00:00:00 MEDICAID PENDING PENDING 2022 00:00:00 [facility] [id number] 2020 00:00:00 Problems Condition Condition Condition Status Onset Resolution Last Treating Co mments Source Name Details Category Date Date Treatment Clinician Date Pain in Pain in Disease Active Univers breast breast 5-02 ity of 00:00: [address] Elevated Elevated Disease Active Unive rs hemoglobin hemoglobin 4-08 it y of 00:00: [address] Anxiety Anxiety Disease Active Univers and and 3-23 [place] [facility] Obesity Obesity Disease Active Univers (BMI (BMI 1-08 ity of 30-39.9) 30-39.9) 00:00: [address] Other Other Disease Active Univers general general 9-24 [place] of counseling [place] and advice and advice 00 [place] [facility] for [facility] Branch contracept contracept tomás tomás management management Irregular Irregular Disease Active Uni vers menstrual menstrual 05-06 ity of cycle cycle 00:00: [place] 00 [facility] Tobacco Tobacco Disease Active Univers use use 05-06 ity of disorder disorder 00:00: [place] [facility] Verruca Verruca Disease Active Overview: Univ ers warts warts 08-23 Formattin ity of (infectiou (infectiou 00:00: g [...] Univers IN INGREDI 04-03 ity of 00:00: [place] 00 [facility] Branch Social History Social Habit Start Date Stop Date Quantity Comments Source History of tobacco Cigarette Smoker University of use [facility] Gender identity Universit y of [facility] Sexual orientation Univer sity of [facility] Alcohol intake 2023-03-14 2023-03-14 Ex-drinker University 00:00:00 00:00:00 (finding) [facility] Exposure to 2022-12-19 2022-12-[address] [facility] SARS-CoV-2 (event) 00:00:00 13:43:00 [facility] Tobacco use and 2022-07-27 2022-07-27 Smokeless Universit y of exposure 00:00:00 00:00:00 tobacco non-user [facility] dical [place] History of Social 2022-07-14 2022-07-14 Univers ity of function 00:00:00 00:00:00 [facility] Alcohol Comment 2021-11-02 2021-11-02 2-3x a week Universi ty of 00:00:00 00:00:00 [facility] History SDOH 2020-05-06 2020-05-06 99 University o f Alcohol Frequency 00:00:00 00:00:00 [place] [facility] History SDOH 2020-05-06 2020-05-06 99 University o f Alcohol Std Drinks 00:00:00 00:00:00 [facility] History SDIL 2020-05-06 2020-05-06 99 University o f Alcohol Binge 00:00:00 00:00:00 [facility] Branch Sex Assigned At 2000 2000 Universit y of 00:00:00 00:00:00 [facility] Smoking Status Start Date Stop Date Source Ex-smoker 2022-07-27 00:00:00 2022-07-27 00:00:00 Universi ty of [facility] Medications Ordered Filled Start Stop Current Ordering Indication Dosage Frequency Signature Comments Components Source Medication Medication Date Date Medication? Clinician (SIG) Name Name metroNIDAZO Yes [id number] 500mg Take 1 Univers LE 500 mg 5-23 tablet by ity o f tablet 00:00: mouth in [place] [address] the Medical morning Branch and 1 tablet in the evening. metroNIDAZO Yes [id number] 500mg Take 1 Univers LE 500 mg 5-23 tablet by ity o f tablet 00:00: mouth in [place] [address] the Medical morning Branch and 1 tablet in the evening. metroNIDAZO Yes [id number] 500mg Take 1 Univers LE 500 mg 5-23 tablet by ity o f tablet 00:00: mouth in [place] 00 the Medical morning Branch and 1 tablet in the evening. metroNIDAZO 2022- No [id number] 500mg Take 1 Univers LE 500 mg 5-23 08-02 tablet by ity of tablet 00:00: 00:00 mouth in [place] 00 :00 the Medical morning Branch and 1 tablet in the evening. metroNIDAZO 2022- No [id number] 500mg Take 1 Univers LE 500 mg 5-23 08-02 tablet by ity of tablet 00:00: 00:00 mouth in [place] 00 :00 the Medical morning Branch and 1 tablet in the evening. metroNIDAZO 2022- No [id number] 500mg Take 1 Univers LE 500 mg 5-23 - tablet by ity of tablet 00:00: 00:00 mouth in [place] 00 :00 the Medical morning Branch and 1 tablet in the evening. metroNIDAZO 2022- No [id number] 500mg Take 1 Univers LE 500 mg 5-23 - tablet by ity of tablet 00:00: 00:00 mouth in [place] 00 :00 the Medical morning Branch and 1 tablet in the evening. fluconazole 2022- No [id number] 150mg Take 1 Univers (DIFLUCAN) 5-23 05-24 tablet by ity of 150 mg 00:00: 04:59 [place] :[place] now for 1 Medical dose. Branch fluconazole 2022- No [id number] 150mg Take 1 Univers (DIFLUCAN) 5-23 05-24 tablet by ity of 150 mg 00:00: 04:59 [place] 00 :00 now for 1 Medical dose. Branch norgestimat Yes [id number] 1{tbl} Take 1 Univers e-ethinyl 1-26 tablet by ity o f estradioL 00:00[place] ([place] the Medical TRI-CYCLEN morning. Bran h LO, 28,) 0.18/0.215/ 0.25 mg-25 mcg tablet norgestimat Yes [id number] 1{tbl} Take 1 Univers e-ethinyl 1-26 tablet by ity o f estradioL 00:[place] the TRI-CYCLE morning. [facility], 28,) 0.18/0.215/ 0.25 mg-25 mcg tablet norgestimat 2023-0 Yes [id number] 1{tbl} Take 1 Univers e-ethinyl 1-26 tablet by ity o f estradioL 00:00[place] the -CYCLEN morning. [facility] h , 28,) 0.18/0.215/ 0.25 mg-25 mcg tablet norgestimat 2023-0 Yes [id number] 1{tbl} Take 1 Univers e-ethinyl 1-26 tablet by ity o f estradioL 00:00[place] the -CYCLE morning. [facility], 28,) 0.18/0.215/ 0.25 mg-25 mcg tablet norgestimat 2023-0 Yes [id number] 1{tbl} Take 1 Univers e-ethinyl 1-26 tablet by [place]y o f estradioL 00:00: [place] the -CYCLE morning. [facility], 28,) 0.18/0.215/ 0.25 mg-25 mcg tablet norgestimat 2023-0 Yes [id number] 1{tbl} Take 1 Univers e-ethinyl 1-26 tablet by [place]y o f estradioL 00:00: [place] ([place] the CYCLE morning. [facility], 28,) 0.18/0.215/ 0.25 mg-25 mcg tablet norgestimat 2023-0 Yes [id number] 1{tbl} Take 1 Univers e-ethinyl 1-26 tablet by [place]y o f estradioL 00:00: [place] ([place] the -CYCLEN morning. Bran h , 28,) 0.18/0.215/ 0.25 mg-25 mcg tablet norgestimat 2023-0 Yes [id number] 1{tbl} Take 1 Univers e-ethinyl 1-26 tablet by ity o f estradioL 00:00: [place] ([place] the Medical TRI-CYCLEN morning. Bran h [place], 28,) 0.18/0.215/ 0.25 mg-25 mcg tablet norgestimat 2023-0 Yes [id number] 1{tbl} Take 1 Univers e-ethinyl 1-26 tablet by ity o f estradioL 00:00: [place] the Medical TRI-CYCLEN morning. Bran h [place], 28,) 0.18/0.215/ 0.25 mg-25 mcg tablet norgestimat 2023-0 Yes [id number] 1{tbl} Take 1 Univers e-ethinyl 1-26 tablet by ity o f estradioL 00:00: [place] ([place] the Medical TRI-CYCLEN morning. Bran h [place], 28,) 0.18/0.215/ 0.25 mg-25 mcg tablet norgestimat 2023-0 Yes [id number] 1{tbl} Take 1 Univers e-ethinyl 1-26 tablet by ity o f estradioL 00:00: [place] ([place] the Medical TRI-CYCLEN morning. Bran h [place], 28,) 0.18/0.215/ 0.25 mg-25 mcg tablet norgestimat 2023-0 Yes [id number] 1{tbl} Take 1 Univers e-ethinyl 1-26 tablet by ity o f estradioL 00:00: [place] ([place] the Medical TRI-CYCLEN morning. Bran h , 28,) 0.18/0.215/ 0.25 mg-25 mcg tablet norgestimat 2023-0 2023- No [id number] 1{tbl} Take 1 Univers e-ethinyl 1-26 08-02 tablet by ity of estradioL 00:00: 00:00 mouth in [place] (ORTHO 00 :00 the Medical TRI-CYCLEN morning. Bran h LO, 28,) 0.18/0.215/ 0.25 mg-25 mcg tablet norgestimat 2023-0 2023- No [id number] 1{tbl} Take 1 Univers e-ethinyl 1-26 08-02 tablet by ity of estradioL 00:00: 00:00 mouth in [place] (ORTHO 00 :00 the Medical TRI-CYCLEN morning. Branc h LO, 28,) 0.18/0.215/ 0.25 mg-25 mcg tablet norgestimat 2022- No [id number] 1{tbl} Take 1 Univers e-ethinyl 09-07- tablet by ity of estradioL 00:00: 00:00 mouth [place] ([place]THO 00 :00 the Medical TRI-CYCLEN morning. Branc h LO, 28,) 0.18/0.215/ 0.25 mg-25 mcg tablet norgestimat 2022- No [id number] 1{tbl} Take 1 Univers e-ethinyl 09-07- tablet by ity of estradioL 00:00: 00:00 mouth in [place] (ORTHO 00 :00 the Medical TRI-CYCLEN morning. Bran h LO, 28,) 0.18/0.215/ 0.25 mg-25 mcg tablet Nitrofurant 2021-08 Yes [id number] 100mg Take 1 Univers oin&Nit. 2-15 capsule by ity o f Macrocryst 00:00: mouth [place] (MACROBID) 00 the Medical 100 mg morning Branch capsule and 1 capsule in the evening. Nitrofurant 2021-08 Yes [id number] 100mg Take 1 Univers oin&Nit. 2-15 capsule by ity o f Macrocryst 00:00: mouth [place] (MACROBID) 00 the Medical 100 mg morning Branch capsule and 1 capsule in the evening. Nitrofurant 2021-08 Yes [id number] 100mg Take 1 Univers oin&Nit. 2-15 capsule by ity o f Macrocryst 00:00: mouth [place] (MACROBID) 00 the Medical 100 mg morning Branch capsule and 1 capsule in the evening. Nitrofurant 2021-08 Yes [id number] 100mg Take 1 Univers oin&Nit. 2-15 capsule by ity o f Macrocryst 00:00: mouth [place] (MACROBID) 00 the Medical 100 mg morning Branch capsule and 1 capsule in the evening. Nitrofurant 2021-08 Yes [id number] 100mg Take 1 Univers oin&Nit. 2-15 capsule by ity o f Macrocryst 00:00: mouth [place] (MACROBID) 00 the Medical 100 mg morning Branch capsule and 1 capsule in the evening. Nitrofurant 2021-08 Yes [id number] 100mg Take 1 Univers oin&Nit. 2-15 capsule by ity o f Macrocryst 00:00: mouth [place] (MACROBID) 00 the Medical 100 mg morning Branch capsule and 1 capsule in the evening. Nitrofurant 2021-08 Yes [id number] 100mg Take 1 Univers oin&Nit. 2-15 capsule by ity o f Macrocryst 00:00: mouth [place] (MACROBID) 00 the Medical 100 mg morning Branch capsule and 1 capsule in the evening. Nitrofurant 2021-08 Yes [id number] 100mg Take 1 Univers oin&Nit. 2-15 capsule by ity o f Macrocryst 00:00: mouth [place] (MACROBID) 00 the Medical 100 mg morning Branch capsule and 1 capsule in the evening. Nitrofurant 2021-08 Yes [id number] 100mg Take 1 Univers oin&Nit. 2-15 capsule by ity o f Macrocryst 00:00: mouth [place] (MACROBID) 00 the Medical 100 mg morning Branch capsule and 1 capsule in the evening. Nitrofurant 2021-08 Yes [id number] 100mg Take 1 Univers oin&Nit. 2-15 capsule by ity o f Macrocryst 00:00: mouth [place] (MACROBID) 00 the Medical 100 mg morning Branch capsule and 1 capsule in the evening. Nitrofurant 2021-08 Yes [id number] 100mg Take 1 Univers oin&Nit. 2-15 capsule by ity o f Macrocryst 00:00: mouth [place] (MACROBID) 00 the Medical 100 mg morning Branch capsule and 1 capsule in the evening. Nitrofurant 2021-08 Yes [id number] 100mg Take 1 Univers oin&Nit. 2-15 capsule by ity o f Macrocryst 00:00: mouth [place] (MACROBID) 00 the Medical 100 mg morning Branch capsule and 1 capsule in the evening. Nitrofurant 2021-08 Yes [id number] 100mg Take 1 Univers oin&Nit. 2-15 capsule by ity o f Macrocryst 00:00: mouth [place] (MACROBID) 00 the Medical 100 mg morning Branch capsule and 1 capsule in the evening. Nitrofurant 2021-08 Yes [id number] 100mg Take 1 Univers oin&Nit. 2-15 capsule by ity o f Macrocryst 00:00: mouth in [place] (MACROBID) 00 the Medical 100 mg morning Branch capsule and 1 capsule in the evening. Nitrofurant 2021-08 Yes [id number] 100mg Take 1 Univers oin&Nit. 2-15 capsule by ity o f Macrocryst 00:00: mouth [place] (MACROBID) 00 the Medical 100 mg morning Branch capsule and 1 capsule in the evening. Nitrofurant 2021-08 Yes [id number] 100mg Take 1 Univers oin&Nit. 2-15 capsule by ity o f Macrocryst 00:00: mouth [place] (MACROBID) 00 the Medical 100 mg morning Branch capsule and 1 capsule in the evening. Nitrofurant 2021-08 Yes [id number] 100mg Take 1 Univers oin&Nit. 2-15 capsule by ity o f Macrocryst 00:00: mouth [place] (MACROBID) 00 the Medical 100 mg morning Branch capsule and 1 capsule in the evening. Nitrofurant 2021-08- No [id number] 100mg Take 1 Univers oin&Nit. 2-15 08-02 capsule by ity of Macrocryst 00:00: 00:00 [place] (MACROBID) 00 :00 the Medical 100 mg morning Branch capsule and 1 capsule in the evening. Nitrofurant 2021-08- No [id number] 100mg Take 1 Univers oin&Nit. 2-15 08-02 capsule by ity of Macrocryst 00:00: 00:00 mouth [place] (MACROBID) 00 :00 the Medical 100 mg morning Branch capsule and 1 capsule in the evening. Nitrofurant 2021-08- No [id number] 100mg Take 1 Univers oin&Nit. 2-15 08-02 capsule by ity of Macrocryst 00:00: 00:00 mouth in [place] (MACROBID) 00 :00 the Medical 100 mg morning Branch capsule and 1 capsule in the evening. Nitrofurant 2021-08- No [id number] 100mg Take 1 Univers oin&Nit. 2-15 08-02 capsule by ity of Macrocryst 00:00: 00:00 mouth in [place] (MACROBID) 00 :00 the Medical 100 mg morning Branch capsule and 1 capsule in the evening. buPROPion 2021-08 Yes [id number] 150mg Take 1 U nivers SR 2-02 tablet by ity of (WELLBUTRIN 00:00: mouth in [place] SR) 150 mg 00 the Medical SR tablet morning Branch and 1 tablet in the evening. buPROPion 2021-08 Yes [id number] 150mg Take 1 U nivers SR 2-02 tablet by ity of (WELLBUTRIN 00:00: mouth in [place] SR) 150 mg 00 the Medical SR tablet morning Branch and 1 tablet in the evening. buPROPion 2021-08 Yes [id number] 150mg Take 1 U nivers SR 2-02 tablet by ity of (WELLBUTRIN 00:00: mouth in [place] SR) 150 mg 00 the Medical SR tablet morning Branch and 1 tablet in the evening. buPROPion 2021-08 Yes [id number] 150mg Take 1 U nivers SR 2-02 tablet by ity of (WELLBUTRIN 00:00: mouth in [place] SR) 150 mg 00 the Medical SR tablet morning Branch and 1 tablet in the evening. buPROPion 2021-08 Yes [id number] 150mg Take 1 U nivers SR 2-02 tablet by ity of (WELLBUTRIN 00:00: mouth in [place] SR) 150 mg 00 the Medical SR tablet morning Branch and 1 tablet in the evening. buPROPion 2021-08 Yes [id number] 150mg Take 1 U nivers SR 2-02 tablet by ity of (WELLBUTRIN 00:00: mouth in [place] SR) 150 mg 00 the Medical SR tablet morning Branch and 1 tablet in the evening. buPROPion 2021-08 Yes [id number] 150mg Take 1 U nivers SR 2-02 tablet by ity of (WELLBUTRIN 00:00: mouth in [place] SR) 150 mg 00 the Medical SR tablet morning Branch and 1 tablet in the evening. buPROPion 2021-08 Yes [id number] 150mg Take 1 U nivers SR 2-02 tablet by ity of (WELLBUTRIN 00:00: mouth in [place] SR) 150 mg 00 the Medical SR tablet morning Branch and 1 tablet in the evening. buPROPion 2021-08 Yes [id number] 150mg Take 1 U nivers SR 2-02 tablet by ity of (WELLBUTRIN 00:00: [place] SR) 150 mg 00 the Medical SR tablet morning Branch and 1 tablet in the evening. buPROPion 2021-08 Yes [id number] 150mg Take 1 U nivers SR 2-02 tablet by ity of (WELLBUTRIN 00:00: mouth [place] SR) 150 mg 00 the Medical SR tablet morning Branch and 1 tablet in the evening. buPROPion 2021-08 Yes [id number] 150mg Take 1 U nivers SR 2-02 tablet by ity of (WELLBUTRIN 00:00: [place] SR) 150 mg 00 the Medical SR tablet morning Branch and 1 tablet in the evening. buPROPion 2021-08 Yes [id number] 150mg Take 1 U nivers SR 2-02 tablet by ity of (WELLBUTRIN 00:00: [place] SR) 150 mg 00 the Medical SR tablet morning Branch and 1 tablet in the evening. buPROPion 2021-08 Yes [id number] 150mg Take 1 U nivers SR 2-02 tablet by ity of (WELLBUTRIN 00:00: [place] SR) 150 mg 00 the Medical SR tablet morning Branch and 1 tablet in the evening. buPROPion 2021-08 Yes [id number] 150mg Take 1 U nivers SR 2-02 tablet by ity of (WELLBUTRIN 00:00: [place] SR) 150 mg 00 the Medical SR tablet morning Branch and 1 tablet in the evening. buPROPion 2021-08 Yes [id number] 150mg Take 1 U nivers SR 2-02 tablet by ity of (WELLBUTRIN 00:00: [place] SR) 150 mg 00 the Medical SR tablet morning Branch and 1 tablet in the evening. buPROPion 2021-08 Yes [id number] 150mg Take 1 U nivers SR 2-02 tablet by ity of (WELLBUTRIN 00:00: [place] SR) 150 mg 00 the Medical SR tablet morning Branch and 1 tablet in the evening. buPROPion 2021-08 Yes [id number] 150mg Take 1 U nivers SR 2-02 tablet by ity of (WELLBUTRIN 00:00: [place] SR) 150 mg 00 the Medical SR tablet morning Branch and 1 tablet in the evening. buPROPion 2021-08 Yes [id number] 150mg Take 1 U nivers SR 2-02 tablet by ity of (WELLBUTRIN 00:00: [place] SR) 150 mg 00 the Medical SR tablet morning Branch and 1 tablet in the evening. buPROPion 2021-08 Yes [id number] 150mg Take 1 U nivers SR 2-02 tablet by ity of (WELLBUTRIN 00:00: [place] SR[place] 150 mg 00 the Medical SR tablet morning Branch and 1 tablet in the evening. buPROPion 2021-08- No [id number] 150mg Take 1 Univers SR -03-14 tablet by ity of (WELLBUTRIN 00:00: 00:00 mouth [place] SR) 150 mg 00 :00 the Medical SR tablet morning Branch and 1 tablet in the evening. buPROPion 2021-08- No [id number] 150mg Take 1 Univers SR -03-14 tablet by ity of (WELLBUTRIN 00:00: 00:00 [place] SR) 150 mg 00 :00 the Medical SR tablet morning Branch and 1 tablet in the evening. buPROPion 2021-08- No [id number] 150mg Take 1 Univers SR -03-14 tablet by ity of (WELLBUTRIN 00:00: 00:00 [place] SR) 150 mg 00 :00 the Medical SR tablet morning Branch and 1 tablet in the evening. buPROPion 2021-08- No [id number] 150mg Take 1 Univers SR -03-14 tablet by ity of (WELLBUTRIN 00:00: 00:00 [place] SR) 150 mg 00 :00 the Medical SR tablet morning Branch and 1 tablet in the evening. medroxyPROG 2021-08- No [id number] 150mg Univers ESTERone 08-14 ity of (DEPO-PROVE 19:45: 20:44 [place] RA) 00 :00 Medical injection Branch 150 mg medroxyPROG 2021-08- No [id number] 150mg 150 mg, Univers ESTERone 08-14 Intramuscu ity of (DEPO-PROVE 19:45: 20:44 lar, [place] RA) 00 :00 [id number], Medical injection 5 doses, Branch 150 mg First dose on Sun06/14/22 at 1445, Last dose on Sun05/16/23 at 1445, Routine medroxyPROG 2021-08- No [id number] 150mg Univers ESTERone 08-14 ity of (DEPO-PROVE 19:45: 20:44 [place] RA) 00 :00 Medical injection Branch 150 mg medroxyPROG 2021-08- No [id number] 150mg 150 mg, Univers ESTERone 08-14 Intramuscu ity of (DEPO-PROVE 19:45: 20:44 [place], [place] RA) 00 :00 [id number], Medical injection 5 doses, Branch 150 mg First dose on Sun06/14/22 at 1445, Last dose on Sun05/16/23 at 1445, Routine medroxyPROG 2021-08- No [id number] 150mg Univers ESTERone 08-14 ity of (DEPO-PROVE 19:45: 20:44 [place] RA) 00 :00 Medical injection Branch 150 mg medroxyPROG 2021-08- No [id number] 150mg Univers ESTERone 08-14 ity of (DEPO-PROVE 19:45: 20:44 [place] RA) 00 :00 Medical injection Branch 150 mg medroxyPROG 2021-08- No [id number] 150mg Univers ESTERone 08-14 ity of (DEPO-PROVE 19:45: 20:44 [place] RA) 00 :00 Medical injection Branch 150 mg medroxyPROG 2021-08- No [id number] 150mg Univers ESTERone 08-14 ity of (DEPO-PROVE 19:45: 20:44 [place] RA) 00 :00 Medical injection Branch 150 mg medroxyPROG 2021-08- No [id number] 150mg Univers ESTERone 08-14 ity of (DEPO-PROVE 19:45: 20:44 [place] RA) 00 :00 Medical injection Branch 150 mg medroxyPROG 2021-08- No [id number] 150mg Univers ESTERone 08-14 ity of (DEPO-PROVE 19:45: 20:44 [place] RA) 00 :00 Medical injection Branch 150 mg medroxyPROG 2021-08- No [id number] 150mg Univers ESTERone 08-14 ity of (DEPO-PROVE 19:45: 20:44 [place] RA) 00 :00 Medical injection Branch 150 mg medroxyPROG 2021-08- No [id number] 150mg Univers ESTERone 08-14 ity of (DEPO-PROVE 19:45: 20:44 [place] RA) 00 :00 Medical injection Branch 150 mg medroxyPROG 2021-08- No [id number] 150mg Univers ESTERone 08-14 ity of (DEPO-PROVE 19:45: 20:44 [place] RA) 00 :00 Medical injection Branch 150 mg medroxyPROG 2021-08- No [id number] 150mg Univers ESTERone 08-14 ity of (DEPO-PROVE 19:45: 20:44 [place] RA) 00 :00 Medical injection Branch 150 mg medroxyPROG 2021-083- No [id number] 150mg Univers ESTERone 08-14 ity of (DEPO-PROVE 19:45: 20:44 [place] RA) 00 :00 Medical injection Branch 150 mg medroxyPROG 2021-08- No [id number] 150mg Univers ESTERone 08-14 ity of (DEPO-PROVE 19:45: 20:44 [place] RA) 00 :00 Medical injection Branch 150 mg medroxyPROG 2021-08- No [id number] 150mg Univers ESTERone 08-14 ity of (DEPO-PROVE 19:45: 20:44 [place] RA) 00 :00 Medical injection Branch 150 mg medroxyPROG 2021-08- No [id number] 150mg Univers ESTERone 08-14 ity of (DEPO-PROVE 19:45: 20:44 [place] RA) 00 :00 Medical injection Branch 150 mg medroxyPROG 2021-083- No [id number] 150mg Univers ESTERone 08-14 ity of (DEPO-PROVE 19:45: 20:44 [place] RA) 00 :00 Medical injection Branch 150 mg medroxyPROG 2021-08- No [id number] 150mg Univers ESTERone 08-14 ity of (DEPO-PROVE 19:45: 20:44 [place] RA) 00 :00 Medical injection Branch 150 mg medroxyPROG 2021-08- No [id number] 150mg Univers ESTERone 08-14 ity of (DEPO-PROVE 19:45: 20:44 [place] RA) 00 :00 Medical injection Branch 150 mg medroxyPROG 2021-08- No [id number] 150mg Univers ESTERone 08-14 ity of (DEPO-PROVE 19:45: 20:44 [place] RA) 00 :00 Medical injection Branch 150 mg medroxyPROG 2021-08- No [id number] 150mg Univers ESTERone 08-14 ity of (DEPO-PROVE 19:45: 20:44 [place] RA) 00 :00 Medical injection Branch 150 mg medroxyPROG 2021-08- No [id number] 150mg Univers ESTERone 08-14 ity of (DEPO-PROVE 19:45: 20:44 [place] RA) 00 :00 Medical injection Branch 150 mg medroxyPROG 2021-08- No [id number] 150mg Univers ESTERone 08-14 ity of (DEPO-PROVE 19:45: 20:44 [place] RA) 00 :00 Medical injection Branch 150 mg medroxyPROG 2021-08- No [id number] 150mg Univers ESTERone 08-14 ity of (DEPO-PROVE 19:45: 20:44 [place] RA) 00 :00 Medical injection Branch 150 mg medroxyPROG 2021-08- No [id number] 150mg Univers ESTERone 08-14 ity of (DEPO-PROVE 19:45: 20:44 [place] RA) 00 :00 Medical injection Branch 150 mg medroxyPROG 2021-08- No [id number] 150mg Univers ESTERone 08-14 ity of (DEPO-PROVE 19:45: 20:44 [place] RA) 00 :00 Medical injection Branch 150 mg medroxyPROG 2021-083- No [id number] 150mg Univers ESTERone 08-14 ity of (DEPO-PROVE 19:45: 20:44 [place] RA) 00 :00 Medical injection Branch 150 mg medroxyPROG 2021-08- No [id number] 150mg Univers ESTERone 08-14 ity of (DEPO-PROVE 19:45: 20:44 [place] RA) 00 :00 Medical injection Branch 150 mg medroxyPROG 2021-08- No [id number] 150mg Univers ESTERone 08-14 ity of (DEPO-PROVE 19:45: 20:44 [place] RA) 00 :00 Medical injection Branch 150 mg levonorgest 2021- No [id number] 1{devic Univers reL 4-20 04-20 e} ity of (MIRENA) 22:00: 20:50 [place] IUD 1 00 :00 [employer] Server [facility] Branch levonorgest 2021- No [id number] 1{devic 1 Device, Univers reL 4-20 04-20 e} Intrauteri ity of (MIRENA) 22:00: 20:50 ne, ONCE, Marcelo as IUD 1 00 :00 1 dose, On Windows Server [facility] Branch 11/30/21 at 1700, Routine levonorgest 2021- No [id number] 1{devic Univers reL 4-20 04-20 e} ity of (MIRENA) 22:00: 20:50 [place] IUD 1 00 :00 [employer] Branch levonorgest 2021- No [id number] 1{devic 1 Device, Univers reL 4-20 04-20 e} Intrauteri ity of (MIRENA) 22:00: 20:50 ne, ONCE, Marcelo as IUD 1 00 :00 1 dose, On Windows 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 metroNIDAZO 2021- No [id number] 500mg Take 1 [facility] LE 500 mg 3-25 04-20 tablet by ity of tablet 00:00: 00:00 mouth [place] 00 :00 every 12 Medical (twelve) Branch hours. loratadine 2021-0 Yes [id number] 10mg Take 1 U nivers 10 mg 3-24 tablet by ity of tablet 00:00: mouth [place] 00 daily. Medical Branch benzonatate 2021-0 Yes [id number] 100mg Take 1 Univers (TESSALON 3-24 capsule by ity of PERLES) 100 00:00: mouth [place] mg capsule 00 every 8 Medica l (eight) Branch hours as needed for Cough. loratadine 2021-0 Yes [id number] 10mg Take 1 U nivers 10 mg 3-24 tablet by ity of tablet 00:00: mouth [place] 00 daily. Medical Branch benzonatate 2021-0 Yes [id number] 100mg Take 1 [facility] (TESSALON 3-24 capsule by ity of PERLES) 100 00:00: mouth [place] mg capsule 00 every 8 Medica l (eight) Branch hours as needed for Cough. loratadine 2021-0 Yes [id number] 10mg Take 1 U nivers 10 mg 3-24 tablet by ity of tablet 00:00: mouth [place] 00 daily. Medical Branch benzonatate 2021-0 Yes [id number] 100mg Take 1 Univers (TESSALON 3-24 capsule by ity of PERLES) 100 00:00: mouth [place] mg capsule 00 every 8 Medica l (eight) Branch hours as needed for Cough. loratadine 2021-0 Yes [id number] 10mg Take 1 U nivers 10 mg 3-24 tablet by ity of tablet 00:00: mouth [place] 00 daily. Medical Branch benzonatate 2021-0 Yes [id number] 100mg Take 1 [facility] (TESSALON 3-24 capsule by ity of PERLES) 100 00:00: mouth [place] mg capsule 00 every 8 Medica l (eight) Branch hours as needed for Cough. loratadine 2-0 Yes [id number] 10mg Take 1 U nivers 10 mg 3-24 tablet by ity of tablet 00:00: mouth [place] 00 daily. Medical Branch benzonatate 2-0 Yes [id number] 100mg Take 1 [facility] (TESSALON 3-24 capsule by ity of PERLES) 100 00:00: mouth [place] mg capsule 00 every 8 Medica l (eight) Branch hours as needed for Cough. loratadine 2021-0 Yes [id number] 10mg Take 1 U nivers 10 mg 3-24 tablet by ity of tablet 00:00: mouth [place] 00 daily. Medical Branch benzonatate 2021-0 Yes [id number] 100mg Take 1 Univers (TESSALON 3-24 capsule by ity of PERLES) 100 00:00: mouth [place] mg capsule 00 every 8 Medica l (eight) Branch hours as needed for Cough. loratadine 2021-0 Yes [id number] 10mg Take 1 U nivers 10 mg 3-24 tablet by ity of tablet 00:00: mouth [place] 00 daily. Medical Branch benzonatate 2021-0 Yes [id number] 100mg Take 1 Univers (TESSALON 3-24 capsule by ity of PERLES) 100 00:00: mouth [place] mg capsule 00 every 8 Medica l (eight) Branch hours as needed for Cough. loratadine 2021-0 Yes [id number] 10mg Take 1 U nivers 10 mg 3-24 tablet by ity of tablet 00:00: mouth [place] 00 daily. Medical Branch benzonatate 2021-0 Yes [id number] 100mg Take 1 [facility] (TESSALON 3-24 capsule by ity of PERLES) 100 00:00: mouth [place] mg capsule 00 every 8 Medica l (eight) Branch hours as needed for Cough. loratadine 2021-0 Yes [id number] 10mg Take 1 U nivers 10 mg 3-24 tablet by ity of tablet 00:00: mouth [place] 00 daily. Medical Branch benzonatate 2021-0 Yes [id number] 100mg Take 1 Univers (TESSALON 3-24 capsule by ity of PERLES) 100 00:00: mouth [place] mg capsule 00 every 8 Medica l (eight) Branch hours as needed for Cough. loratadine 2021-0 Yes [id number] 10mg Take 1 U nivers 10 mg 3-24 tablet by ity of tablet 00:00: mouth [place] 00 daily. Medical Branch benzonatate 2021-0 Yes [id number] 100mg Take 1 Univers (TESSALON 3-24 capsule by ity of PERLES) 100 00:00: mouth [place] mg capsule 00 every 8 Medica l (eight) Branch hours as needed for Cough. loratadine 2021-0 Yes [id number] 10mg Take 1 U nivers 10 mg 3-24 tablet by ity of tablet 00:00: mouth [place] 00 daily. Medical Branch benzonatate 2-0 Yes [id number] 100mg Take 1 Univers (TESSALON 3-24 capsule by ity of PERLES) 100 00:00: mouth [place] mg capsule 00 every 8 Medica l (eight) Branch hours as needed for Cough. loratadine 2-0 Yes [id number] 10mg Take 1 U nivers 10 mg 3-24 tablet by ity of tablet 00:00: mouth [place] 00 daily. Medical Branch benzonatate 2021-0 Yes [id number] 100mg Take 1 Univers (TESSALON 3-24 capsule by ity of PERLES) 100 00:00: mouth [place] mg capsule 00 every 8 Medica l (eight) Branch hours as needed for Cough. loratadine 2021-0 Yes [id number] 10mg Take 1 U nivers 10 mg 3-24 tablet by ity of tablet 00:00: mouth [place] 00 daily. Medical Branch benzonatate 2021-0 Yes [id number] 100mg Take 1 Univers (TESSALON 3-24 capsule by ity of PERLES) 100 00:00: mouth [place] mg capsule 00 every 8 Medica l (eight) Branch hours as needed for Cough. loratadine 2021-0 Yes [id number] 10mg Take 1 U nivers 10 mg 3-24 tablet by ity of tablet 00:00: mouth [place] 00 daily. Medical Branch benzonatate 2021-0 Yes [id number] 100mg Take 1 Univers (TESSALON 3-24 capsule by ity of PERLES) 100 00:00: mouth [place] mg capsule 00 every 8 Medica l (eight) Branch hours as needed for Cough. loratadine 2021-0 Yes [id number] 10mg Take 1 U nivers 10 mg 3-24 tablet by ity of tablet 00:00: mouth [place] 00 daily. Medical Branch benzonatate 2-0 Yes [id number] 100mg Take 1 Univers (TESSALON 3-24 capsule by ity of PERLES) 100 00:00: mouth [place] mg capsule 00 every 8 Medica l (eight) Branch hours as needed for Cough. loratadine 2-0 Yes [id number] 10mg Take 1 U nivers 10 mg 3-24 tablet by ity of tablet 00:00: mouth [place] 00 daily. Medical Branch benzonatate 2021-0 Yes [id number] 100mg Take 1 Univers (TESSALON 3-24 capsule by ity of PERLES) 100 00:00: mouth [place] mg capsule 00 every 8 Medica l (eight) Branch hours as needed for Cough. loratadine 2021-0 Yes [id number] 10mg Take 1 U nivers 10 mg 3-24 tablet by ity of tablet 00:00: mouth [place] 00 daily. Medical Branch benzonatate 2021-0 Yes [id number] 100mg Take 1 Univers (TESSALON 3-24 capsule by ity of PERLES) 100 00:00: mouth [place] mg capsule 00 every 8 Medica l (eight) Branch hours as needed for Cough. loratadine 2021-0 Yes [id number] 10mg Take 1 U nivers 10 mg 3-24 tablet by ity of tablet 00:00: mouth [place] 00 daily. Medical Branch benzonatate 2021-0 Yes [id number] 100mg Take 1 Univers (TESSALON 3-24 capsule by ity of PERLES) 100 00:00: mouth [place] mg capsule 00 every 8 Medica l (eight) Branch hours as needed for Cough. loratadine 2021-0 Yes [id number] 10mg Take 1 U nivers 10 mg 3-24 tablet by ity of tablet 00:00: mouth [place] 00 daily. Medical Branch benzonatate 2021-0 Yes [id number] 100mg Take 1 Univers (TESSALON 3-24 capsule by ity of PERLES) 100 00:00: mouth [place] mg capsule 00 every 8 Medica l (eight) Branch hours as needed for Cough. loratadine 2021-0 Yes [id number] 10mg Take 1 U nivers 10 mg 3-24 tablet by ity of tablet 00:00: mouth [place] 00 daily. Medical Branch benzonatate 2021-0 Yes [id number] 100mg Take 1 Univers (TESSALON 3-24 capsule by ity of PERLES) 100 00:00: mouth [place] mg capsule 00 every 8 Medica l (eight) Branch hours as needed for Cough. loratadine 2021-0 Yes [id number] 10mg Take 1 U nivers 10 mg 3-24 tablet by ity of tablet 00:00: mouth [place] 00 daily. Medical Branch benzonatate 2021-0 Yes [id number] 100mg Take 1 Univers (TESSALON 3-24 capsule by ity of PERLES) 100 00:00: mouth [place] mg capsule 00 every 8 Medica l (eight) Branch hours as needed for Cough. loratadine 2-0 Yes [id number] 10mg Take 1 U nivers 10 mg 3-24 tablet by ity of tablet 00:00: mouth [place] 00 daily. Medical Branch benzonatate 2022-0 Yes [id number] 100mg Take 1 Univers (TESSALON 3-24 capsule by ity of PERLES) 100 00:00: mouth [place] mg capsule 00 every 8 Medica l (eight) Branch hours as needed for Cough. loratadine 2-0 Yes [id number] 10mg Take 1 U nivers 10 mg 3-24 tablet by ity of tablet 00:00: mouth [place] 00 daily. Medical Branch benzonatate 2-0 Yes [id number] 100mg Take 1 Univers (TESSALON 3-24 capsule by ity of PERLES) 100 00:00: mouth [place] mg capsule 00 every 8 Medica l (eight) Branch hours as needed for Cough. loratadine 2021-0 Yes [id number] 10mg Take 1 U nivers 10 mg 3-24 tablet by ity of tablet 00:00: mouth [place] 00 daily. Medical Branch benzonatate 2-0 Yes [id number] 100mg Take 1 Univers (TESSALON 3-24 capsule by ity of PERLES) 100 00:00: mouth [place] mg capsule 00 every 8 Medica l (eight) Branch hours as needed for Cough. loratadine 2-0 Yes [id number] 10mg Take 1 U nivers 10 mg 3-24 tablet by ity of tablet 00:00: mouth [place] 00 daily. Medical Branch benzonatate 2-0 Yes [id number] 100mg Take 1 Univers (TESSALON 3-24 capsule by ity of PERLES) 100 00:00: mouth [place] mg capsule 00 every 8 Medica l (eight) Branch hours as needed for Cough. loratadine 2022-0 Yes [id number] 10mg Take 1 U nivers 10 mg 3-24 tablet by ity of tablet 00:00: mouth [place] 00 daily. Medical Branch benzonatate 2022-0 Yes [id number] 100mg Take 1 Univers (TESSALON 3-24 capsule by ity of PERLES) 100 00:00: mouth [place] mg capsule 00 every 8 Medica l (eight) Branch hours as needed for Cough. loratadine 2021-0 Yes [id number] 10mg Take 1 U nivers 10 mg 3-24 tablet by ity of tablet 00:00: mouth [place] 00 daily. Medical Branch benzonatate 2-0 Yes [id number] 100mg Take 1 Univers (TESSALON 3-24 capsule by ity of PERLES) 100 00:00: mouth [place] mg capsule 00 every 8 Medica l (eight) Branch hours as needed for Cough. loratadine 2021-0 Yes [id number] 10mg Take 1 U nivers 10 mg 3-24 tablet by ity of tablet 00:00: mouth [place] 00 daily. Medical Branch benzonatate 2021-0 Yes [id number] 100mg Take 1 Univers (TESSALON 3-24 capsule by ity of PERLES) 100 00:00: mouth [place] mg capsule 00 every 8 Medica l (eight) Branch hours as needed for Cough. loratadine 2021-0 Yes [id number] 10mg Take 1 U nivers 10 mg 3-24 tablet by ity of tablet 00:00: mouth [place] 00 daily. Medical Branch benzonatate 2021-0 Yes [id number] 100mg Take 1 Univers (TESSALON 3-24 capsule by ity of PERLES) 100 00:00: mouth [place] mg capsule 00 every 8 Medica l (eight) Branch hours as needed for Cough. loratadine 2021-0 Yes [id number] 10mg Take 1 U nivers 10 mg 3-24 tablet by ity of tablet 00:00: mouth [place] 00 daily. Medical Branch benzonatate 2021-0 Yes [id number] 100mg Take 1 Univers (TESSALON 3-24 capsule by ity of PERLES) 100 00:00: mouth [place] mg capsule 00 every 8 Medica l (eight) Branch hours as needed for Cough. loratadine 2-0 Yes [id number] 10mg Take 1 U nivers 10 mg 3-24 tablet by ity of tablet 00:00: mouth [place] 00 daily. Medical Branch benzonatate 2-0 Yes [id number] 100mg Take 1 Univers (TESSALON 3-24 capsule by ity of PERLES) 100 00:00: mouth [place] mg capsule 00 every 8 Medica l (eight) Branch hours as needed for Cough. loratadine 2022- No [id number] 10mg Take 1 Univers 10 mg 3-24 08-02 tablet by ity of tablet 00:00: 00:00 mouth [place] 00 :00 daily. Medical Branch benzonatate 2022- No [id number] 100mg Take 1 Univers (TESSALON 3-24 08-02 capsule by ity of PERLES) 100 00:00: 00:00 [place] mg capsule 00 :00 every 8 Medica l (eight) Branch hours as needed for Cough. loratadine 2022- No [id number] 10mg Take 1 Univers 10 mg 3-24 08-02 tablet by ity of tablet 00:00: 00:00 mouth [place] 00 :00 daily. Medical Branch benzonatate 2022- No [id number] 100mg Take 1 Univers (TESSALON 3-24 08-02 capsule by ity of TERRI) 100 00:00: 00:00 [place] mg capsule 00 :00 every 8 Medica l (eight) Branch hours as needed for Cough. loratadine No [id number] 10mg Take 1 Univers 10 mg 3- 08-02 tablet by ity of tablet 00:00: 00:00 mouth [place] 00 :00 daily. Medical Branch benzonatate 2022- No [id number] 100mg Take 1 [facility] (TESSALON 3-24 08-02 capsule by ity of PERLJERRY) 100 00:00: 00:00 [place] mg capsule 00 :00 every 8 Medica l (eight) Branch hours as needed for Cough. loratadine 2022- No [id number] 10mg Take 1 Univers 10 mg 3-24 08-02 tablet by ity of tablet 00:00: 00:00 mouth [place] 00 :00 daily. Medical Branch benzonatate 2022- No [id number] 100mg Take 1 [facility] (TESSALON 3-24 08-02 capsule by ity of PERLJERRY) 100 00:00: 00:00 [place] mg capsule 00 :00 every 8 Medica l (eight) Branch hours as needed for Cough. Immunizations Ordered Immunization Filled Immunization Date Status Commen ts Source Name Name SARS-COV-2 COVID-19 2021-05-07 Completed Unive rsity of VACCINE - (MODERNA) 00:00:00 [facility] SARS-COV-2 COVID-19 2021-05-07 Completed Unive rsity of VACCINE - (MODERNA) 00:00:00 [facility] Branch SARS-COV-2 COVID-19 2021-05-07 Completed Unive rsity of VACCINE - (MODERNA) 00:00:00 [facility] Branch SARS-COV-2 COVID-19 2021-05-07 Completed Unive rsity of VACCINE - (MODERNA) 00:00:00 [facility] Branch SARS-COV-2 COVID-19 2021-05-07 Completed Unive rsity of VACCINE - (MODERNA) 00:00:00 [facility] Branch SARS-COV-2 COVID-19 2021-05-07 Completed Unive rsity of VACCINE - (MODERNA) 00:00:00 [facility] SARS-COV-2 COVID-19 2021-05-07 Completed Unive rsity of VACCINE - (MODERNA) 00:00:00 [facility] Branch SARS-COV-2 COVID-19 2021-05-07 Completed Unive rsity of VACCINE - (MODERNA) 00:00:00 [facility] SARS-COV-2 COVID-19 2021-05-07 Completed Unive rsity of VACCINE - (MODERNA) 00:00:00 [facility] Branch SARS-COV-2 COVID-19 2021-05-07 Completed Unive rsity of VACCINE - (MODERNA) 00:00:00 [facility] Branch SARS-COV-2 COVID-19 2021-05-07 Completed Unive rsity of VACCINE - (MODERNA) 00:00:00 [facility] Branch SARS-COV-2 COVID-19 2021-05-07 Completed Unive rsity of VACCINE - (MODERNA) 00:00:00 [facility] SARS-COV-2 COVID-19 2021-05-07 Completed Unive rsity of VACCINE - (MODERNA) 00:00:00 [facility] Branch SARS-COV-2 COVID-19 2021-05-07 Completed Unive rsity of VACCINE - (MODERNA) 00:00:00 [facility] Branch SARS-COV-2 COVID-19 2021-05-07 Completed Unive rsity of VACCINE - (MODERNA) 00:00:00 [facility] SARS-COV-2 COVID-19 2021-05-07 Completed Unive rsity of VACCINE - (MODERNA) 00:00:00 [facility] SARS-COV-2 COVID-19 2021-05-04 Completed Unive rsity of PFIZER VACCINE 00:00:00 [facility] [place] SARS-COV-2 COVID-19 2021-05-04 Completed Unive rsity of PFIZER VACCINE 00:00:00 [facility] Branch SARS-COV-2 COVID-19 2021-05-04 Completed Unive rsity of PFIZER VACCINE 00:00:00 [facility] [place] SARS-COV-2 COVID-19 2021-05-04 Completed Unive rsity of PFIZER VACCINE 00:00:00 [facility] Branch SARS-COV-2 COVID-19 2021-05-04 Completed Unive rsity of PFIZER VACCINE 00:00:00 [facility] [place] SARS-COV-2 COVID-19 2021-05-04 Completed Unive rsity of PFIZER VACCINE 00:00:00 [facility] [place] SARS-COV-2 COVID-19 2021-05-04 Completed Unive rsity of PFIZER VACCINE 00:00:00 [facility] [place] SARS-COV-2 COVID-19 2021-05-04 Completed Unive rsity of PFIZER VACCINE 00:00:00 [facility] [place] SARS-COV-2 COVID-19 2021-05-04 Completed Unive rsity of PFIZER VACCINE 00:00:00 [facility] [place] SARS-COV-2 COVID-19 2021-05-04 Completed Unive rsity of PFIZER VACCINE 00:00:00 [facility] Branch SARS-COV-2 COVID-19 2021-05-04 Completed Unive rsity of PFIZER VACCINE 00:00:00 [facility] [place] SARS-COV-2 COVID-19 2021-05-04 Completed Unive rsity of PFIZER VACCINE 00:00:00 [facility] [place] SARS-COV-2 COVID-19 2021-05-04 Completed Unive rsity of PFIZER VACCINE 00:00:00 [facility] [place] SARS-COV-2 COVID-19 2021-05-04 Completed Unive rsity of PFIZER VACCINE 00:00:00 [facility] [place] SARS-COV-2 COVID-19 2021-05-04 Completed Unive rsity of PFIZER VACCINE 00:00:00 [facility] Branch SARS-COV-2 COVID-19 2021-05-04 Completed Unive rsity of PFIZER VACCINE 00:00:00 [facility] SARS-COV-2 COVID-19 2021-05-04 Completed Unive rsity of PFIZER VACCINE 00:00:00 [facility] SARS-COV-2 COVID-19 2021-05-04 Completed Unive rsity of PFIZER VACCINE 00:00:00 [facility] SARS-COV-2 COVID-19 2021-05-04 Completed Unive rsity of PFIZER VACCINE 00:00:00 [facility] SARS-COV-2 COVID-19 2021-05-04 Completed Unive rsity of PFIZER VACCINE 00:00:00 [facility] SARS-COV-2 COVID-19 2021-05-04 Completed Unive rsity of PFIZER VACCINE 00:00:00 [facility] SARS-COV-2 COVID-19 2021-05-04 Completed Unive rsity of PFIZER VACCINE 00:00:00 [facility] SARS-COV-2 COVID-19 2021-05-04 Completed Unive rsity of PFIZER VACCINE 00:00:00 [facility] [place] SARS-COV-2 COVID-19 2021-05-04 Completed Unive rsity of PFIZER VACCINE 00:00:00 [facility] [place] SARS-COV-2 COVID-19 2021-05-04 Completed Unive rsity of PFIZER VACCINE 00:00:00 [facility] [place] SARS-COV-2 COVID-19 2021-05-04 Completed Unive rsity of PFIZER VACCINE 00:00:00 [facility] Branch SARS-COV-2 COVID-19 2021-05-04 Completed Unive rsity of PFIZER VACCINE 00:00:00 [facility] [place] SARS-COV-2 COVID-19 2021-05-04 Completed Unive rsity of PFIZER VACCINE 00:00:00 [facility] [place] SARS-COV-2 COVID-19 2021-05-04 Completed Unive rsity of PFIZER VACCINE 00:00:00 [facility] [place] SARS-COV-2 COVID-19 2021-05-04 Completed Unive rsity of PFIZER VACCINE 00:00:00 [place] [facility] SARS-COV-2 COVID-19 2021-05-04 Completed Unive rsity of PFIZER VACCINE 00:00:00 [facility] SARS-COV-2 COVID-19 2021-05-04 Completed Unive rsity of PFIZER VACCINE 00:00:00 [facility] [place] SARS-COV-2 COVID-19 2021-05-04 Completed Unive rsity of PFIZER VACCINE 00:00:00 [facility] SARS-COV-2 COVID-19 2021-05-04 Completed Unive rsity of PFIZER VACCINE 00:00:00 [facility] SARS-COV-2 COVID-19 2021-05-04 Completed Unive rsity of PFIZER VACCINE 00:00:00 [facility] SARS-COV-2 COVID-19 2021-05-04 Completed Unive rsity of PFIZER VACCINE 00:00:00 [facility] [place] SARS-COV-2 COVID-19 2021-05-04 Completed Unive rsity of PFIZER VACCINE 00:00:00 [facility] [place] SARS-COV-2 COVID-19 2021-05-04 Completed Unive rsity of PFIZER VACCINE 00:00:00 [facility] [place] SARS-COV-2 COVID-19 2021-04-13 Completed Unive rsity of PFIZER VACCINE 00:00:00 [facility] [place] SARS-COV-2 COVID-19 2021-04-13 Completed Unive rsity of PFIZER VACCINE 00:00:00 [facility] [place] SARS-COV-2 COVID-19 2021-04-13 Completed Unive rsity of PFIZER VACCINE 00:00:00 [facility] Branch SARS-COV-2 COVID-19 2021-04-13 Completed Unive rsity of PFIZER VACCINE 00:00:00 [facility] SARS-COV-2 COVID-19 2021-04-13 Completed Unive rsity of PFIZER VACCINE 00:00:00 [facility] SARS-COV-2 COVID-19 2021-04-13 Completed Unive rsity of PFIZER VACCINE 00:00:00 [facility] [place] SARS-COV-2 COVID-19 2021-04-13 Completed Unive rsity of PFIZER VACCINE 00:00:00 [facility] [place] SARS-COV-2 COVID-19 2021-04-13 Completed Unive rsity of PFIZER VACCINE 00:00:00 [facility] SARS-COV-2 COVID-19 2021-04-13 Completed Unive rsity of PFIZER VACCINE 00:00:00 [facility] SARS-COV-2 COVID-19 2021-04-13 Completed Unive rsity of PFIZER VACCINE 00:00:00 [facility] [place] SARS-COV-2 COVID-19 2021-04-13 Completed Unive rsity of PFIZER VACCINE 00:00:00 [facility] SARS-COV-2 COVID-19 2021-04-13 Completed Unive rsity of PFIZER VACCINE 00:00:00 [facility] SARS-COV-2 COVID-19 2021-04-13 Completed Unive rsity of PFIZER VACCINE 00:00:00 [facility] SARS-COV-2 COVID-19 2021-04-13 Completed Unive rsity of PFIZER VACCINE 00:00:00 [facility] SARS-COV-2 COVID-19 2021-04-13 Completed Unive rsity of PFIZER VACCINE 00:00:00 [facility] SARS-COV-2 COVID-19 2021-04-13 Completed Unive rsity of PFIZER VACCINE 00:00:00 [facility] [place] SARS-COV-2 COVID-19 2021-04-13 Completed Unive rsity of PFIZER VACCINE 00:00:00 [facility] [place] SARS-COV-2 COVID-19 2021-04-13 Completed Unive rsity of PFIZER VACCINE 00:00:00 [facility] [place] SARS-COV-2 COVID-19 2021-04-13 Completed Unive rsity of PFIZER VACCINE 00:00:00 [facility] SARS-COV-2 COVID-19 2021-04-13 Completed Unive rsity of PFIZER VACCINE 00:00:00 [facility] SARS-COV-2 COVID-19 2021-04-13 Completed Unive rsity of PFIZER VACCINE 00:00:00 [facility] [place] SARS-COV-2 COVID-19 2021-04-13 Completed Unive rsity of PFIZER VACCINE 00:00:00 [facility] [place] SARS-COV-2 COVID-19 2021-04-13 Completed Unive rsity of PFIZER VACCINE 00:00:00 [place] [facility] SARS-COV-2 COVID-19 2021-04-13 Completed Unive rsity of PFIZER VACCINE 00:00:00 [facility] SARS-COV-2 COVID-19 2021-04-13 Completed Unive rsity of PFIZER VACCINE 00:00:00 [facility] SARS-COV-2 COVID-19 2021-04-13 Completed Unive rsity of PFIZER VACCINE 00:00:00 [facility] SARS-COV-2 COVID-19 2021-04-13 Completed Unive rsity of PFIZER VACCINE 00:00:00 [facility] SARS-COV-2 COVID-19 2021-04-13 Completed Unive rsity of PFIZER VACCINE 00:00:00 [facility] SARS-COV-2 COVID-19 2021-04-13 Completed Unive rsity of PFIZER VACCINE 00:00:00 [facility] SARS-COV-2 COVID-19 2021-04-13 Completed Unive rsity of PFIZER VACCINE 00:00:00 [facility] SARS-COV-2 COVID-19 2021-04-13 Completed Unive rsity of PFIZER VACCINE 00:00:00 [facility] SARS-COV-2 COVID-19 2021-04-13 Completed Unive rsity of PFIZER VACCINE 00:00:00 [facility] SARS-COV-2 COVID-19 2021-04-13 Completed Unive rsity of PFIZER VACCINE 00:00:00 [facility] SARS-COV-2 COVID-19 2021-04-13 Completed Unive rsity of PFIZER VACCINE 00:00:00 [facility] SARS-COV-2 COVID-19 2021-04-13 Completed Unive rsity of PFIZER VACCINE 00:00:00 [facility] SARS-COV-2 COVID-19 2021-04-13 Completed Unive rsity of PFIZER VACCINE 00:00:00 [facility] SARS-COV-2 COVID-19 2021-04-13 Completed Unive rsity of PFIZER VACCINE 00:00:00 [facility] SARS-COV-2 COVID-19 2021-04-13 Completed Unive rsity of PFIZER VACCINE 00:00:00 [facility] [place] SARS-COV-2 COVID-19 2021-04-09 Completed Unive rsity of VACCINE - (MODERNA) 00:00:00 [facility] SARS-COV-2 COVID-19 2021-04-09 Completed Unive rsity of VACCINE - (MODERNA) 00:00:00 [facility] SARS-COV-2 COVID-19 2021-04-09 Completed Unive rsity of VACCINE - (MODERNA) 00:00:00 [facility] SARS-COV-2 COVID-19 2021-04-09 Completed Unive rsity of VACCINE - (MODERNA) 00:00:00 [facility] SARS-COV-2 COVID-19 2021-04-09 Completed Unive rsity of VACCINE - (MODERNA) 00:00:00 [facility] SARS-COV-2 COVID-19 2021-04-09 Completed Unive rsity of VACCINE - (MODERNA) 00:00:00 [facility] SARS-COV-2 COVID-19 2021-04-09 Completed [facility] of VACCINE - (MODERNA) 00:00:00 [facility] SARS-COV-2 COVID-19 2021-04-09 Completed [facility] of VACCINE - (MODERNA) 00:00:00 [facility] SARS-COV-2 COVID-19 2021-04-09 Completed [facility] VACCINE - (MODERNA) 00:00:00 [facility] SARS-COV-2 COVID-19 2021-04-09 Completed [facility] VACCINE - (MODERNA) 00:00:00 [facility] SARS-COV-2 COVID-19 2021-04-09 Completed [facility] VACCINE - (MODERNA) 00:00:00 [facility] SARS-COV-2 COVID-19 2021-04-09 Completed [facility] VACCINE - (MODERNA) 00:00:00 [facility] SARS-COV-2 COVID-19 2021-04-09 Completed [facility] of VACCINE - (MODERNA) 00:00:00 [facility] SARS-COV-2 COVID-19 2021-04-09 Completed [facility] of VACCINE - (MODERNA) 00:00:00 [facility] SARS-COV-2 COVID-19 2021-04-09 Completed [facility] of VACCINE - (MODERNA) 00:00:00 [facility] SARS-COV-2 COVID-19 2021-04-09 Completed [facility] of VACCINE - (MODERNA) 00:00:00 [facility] Meningococcal 2019-04-10 Completed University of Polysaccharide 00:00:00 [...] Meningococcal 2019-04-10 Completed University of Polysaccharide 00:00:00 [facility] (groups A, C, Y and Branc h W-135) conjugate vaccine (MCV4P) TDAP 2018-02-07 Completed [facility] of 00:00:00 [facility] TDAP 2018-02-07 Completed [facility] 00:00:00 [facility] TDAP 2018-02-07 Completed [facility] 00:00:00 [facility] TDAP 2018-02-07 Completed [facility] of 00:00:00 [facility] TDAP 2018-02-07 Completed [facility] 00:00:00 [facility] TDAP 2018-02-07 Completed [facility] of 00:00:00 [facility] TDAP 2018-02-07 Completed [facility] of 00:00:00 [facility] TDAP 2018-02-07 Completed [facility] of 00:00:00 [facility] TDAP 2018-02-07 Completed [facility] 00:00:00 [facility] TDAP 2018-02-07 Completed [facility] of 00:00:00 [facility] TDAP 2018-02-07 Completed [facility] of 00:00:00 [facility] TDAP 2018-02-07 Completed [facility] 00:00:00 [facility] TDAP 2018-02-07 Completed [facility] of 00:00:00 [facility] TDAP 2018-02-07 Completed [facility] 00:00:00 [facility] TDAP 2018-02-07 Completed [facility] of 00:00:00 [facility] TDAP 2018-02-07 Completed [facility] of 00:00:00 [facility] TDAP 2018-02-07 Completed [facility] 00:00:00 [facility] TDAP 2018-02-07 Completed [facility] of 00:00:00 [facility] TDAP 2018-02-07 Completed [facility] of 00:00:00 [facility] TDAP 2018-02-07 Completed [facility] of 00:00:00 [facility] TDAP 2018-02-07 Completed [facility] of 00:00:00 [facility] TDAP 2018-02-07 Completed [facility] of 00:00:00 [facility] TDAP 2018-02-07 Completed [facility] 00:00:00 [facility] TDAP 2018-02-07 Completed [facility] 00:00:00 [facility] TDAP 2018-02-07 Completed [facility] 00:00:00 [facility] TDAP 2018-02-07 Completed [facility] 00:00:00 [facility] TDAP 2018-02-07 Completed [facility] 00:00:00 [facility] TDAP 2018-02-07 Completed [facility] 00:00:00 [facility] TDAP 2018-02-07 Completed [facility] 00:00:00 [facility] TDAP 2018-02-07 Completed [facility] 00:00:00 [facility] TDAP 2018-02-07 Completed [facility] 00:00:00 [facility] TDAP 2018-02-07 Completed [facility] 00:00:00 [facility] TDAP 2018-02-07 Completed [facility] 00:00:00 [facility] TDAP 2018-02-07 Completed [facility] 00:00:00 [facility] TDAP 2018-02-07 Completed [facility] 00:00:00 [facility] TDAP 2018-02-07 Completed [facility] 00:00:00 [facility] TDAP 2018-02-07 Completed [facility] 00:00:00 [facility] TDAP 2018-02-07 Completed [facility] 00:00:00 [facility] HPV 2013-07-24 Completed [facility] 00:00:00 [facility] HPV 2013-07-24 Completed [facility] 00:00:00 [facility] HPV 2013-07-24 Completed [facility] 00:00:00 [facility] HPV 2013-07-24 Completed [facility] 00:00:00 [facility] HPV 2013-07-24 Completed [facility] 00:00:00 [facility] HPV 2013-07-24 Completed [facility] 00:00:00 [facility] HPV 2013-07-24 Completed [facility] 00:00:00 [facility] HPV 2013-07-24 Completed [facility] 00:00:00 [facility] HPV 2013-07-24 Completed [facility] 00:00:00 [facility] HPV 2013-07-24 Completed [facility] 00:00:00 [facility] HPV 2013-07-24 Completed [facility] 00:00:00 [facility] HPV 2013-07-24 Completed [facility] 00:00:00 [facility] HPV 2013-07-24 Completed [facility] 00:00:00 [facility] HPV 2013-07-24 Completed [facility] 00:00:00 [facility] HPV 2013-07-24 Completed [facility] 00:00:00 [facility] HPV 2013-07-24 Completed [facility] 00:00:00 [facility] HPV 2013-07-24 Completed [facility] 00:00:00 [facility] HPV 2013-07-24 Completed [facility] 00:00:00 [facility] HPV 2013-07-24 Completed [facility] 00:00:00 [facility] HPV 2013-07-24 Completed [facility] 00:00:00 [facility] HPV 2013-07-24 Completed [facility] 00:00:00 [facility] HPV 2013-07-24 Completed [facility] 00:00:00 [facility] HPV 2013-07-24 Completed [facility] 00:00:00 [facility] HPV 2013-07-24 Completed [facility] 00:00:00 [facility] HPV 2013-07-24 Completed [facility] 00:00:00 [facility] HPV 2013-07-24 Completed [facility] 00:00:00 [facility] HPV 2013-07-24 Completed [facility] 00:00:00 [facility] HPV 2013-07-24 Completed [facility] 00:00:00 [facility] HPV 2013-07-24 Completed [facility] 00:00:00 [facility] HPV 2013-07-24 Completed [facility] 00:00:00 [facility] HPV 2013-07-24 Completed [facility] 00:00:00 [facility] HPV 2013-07-24 Completed [facility] 00:00:00 [facility] HPV 2013-07-24 Completed [facility] 00:00:00 [facility] HPV 2013-07-24 Completed [facility] 00:00:00 [facility] HPV 2013-07-24 Completed [facility] 00:00:00 [facility] HPV 2013-07-24 Completed [facility] 00:00:00 [facility] HPV 2013-07-24 Completed [facility] 00:00:00 [facility] HPV 2013-07-24 Completed [facility] 00:00:00 [facility] [...] Branch HPV 2013-04-16 Completed [facility] of 00:00:00 [facility] HPV 2013-04-16 Completed [facility] of 00:00:00 [facility] HPV 2013-01-21 Completed [facility] of 00:00:00 [facility] Meningococcal 2013-01-21 Completed [facility] Polysaccharide 00:00:00 [facility] (groups A, C, Y and Branc h W-135) conjugate vaccine (MCV4P) TDAP 2013-01-21 Completed [facility] 00:00:00 [facility] HPV 2013-01-21 Completed [facility] 00:00:00 [facility] Meningococcal 2013-01-21 Completed [facility] Polysaccharide 00:00:00 [facility] (groups A, C, Y and Branc h W-135) conjugate vaccine (MCV4P) TDAP 2013-01-21 Completed [facility] 00:00:00 [facility] HPV 2013-01-21 Completed [facility] 00:00:00 [facility] Meningococcal 2013-01-21 Completed [facility] Polysaccharide 00:00:00 [facility] (groups A, C, Y and Branc h W-135) conjugate vaccine (MCV4P) TDAP 2013-01-21 Completed [facility] 00:00:00 [facility] HPV 2013-01-21 Completed [facility] 00:00:00 [facility] Meningococcal 2013-01-21 Completed [facility] Polysaccharide 00:00:00 [facility] (groups A, C, Y and Branc h W-135) conjugate vaccine (MCV4P) TDAP 2013-01-21 Completed [facility] 00:00:00 [facility] HPV 2013-01-21 Completed [facility] 00:00:00 [facility] Meningococcal 2013-01-21 Completed [facility] Polysaccharide 00:00:00 [facility] (groups A, C, Y and Branc h W-135) conjugate vaccine (MCV4P) TDAP 2013-01-21 Completed [facility] 00:00:00 [facility] HPV 2013-01-21 Completed [facility] 00:00:00 [facility] Meningococcal 2013-01-21 Completed [facility] Polysaccharide 00:00:00 [facility] (groups A, C, Y and Branc h W-135) conjugate vaccine (MCV4P) TDAP 2013-01-21 Completed [facility] 00:00:00 [facility] HPV 2013-01-21 Completed [facility] 00:00:00 [facility] Meningococcal 2013-01-21 Completed [facility] Polysaccharide 00:00:00 [facility] (groups A, C, Y and Branc h W-135) conjugate vaccine (MCV4P) TDAP 2013-01-21 Completed [facility] 00:00:00 [facility] HPV 2013-01-21 Completed [facility] 00:00:00 [facility] Meningococcal 2013-01-21 Completed [facility] Polysaccharide 00:00:00 [facility] (groups A, C, Y and Branc h W-135) conjugate vaccine (MCV4P) TDAP 2013-01-21 Completed [facility] 00:00:00 [facility] HPV 2013-01-21 Completed [facility] 00:00:00 [facility] Meningococcal 2013-01-21 Completed [facility] Polysaccharide 00:00:00 [facility] (groups A, C, Y and Branc h W-135) conjugate vaccine (MCV4P) TDAP 2013-01-21 Completed [facility] 00:00:00 [facility] HPV 2013-01-21 Completed [facility] 00:00:00 [facility] Meningococcal 2013-01-21 Completed [facility] Polysaccharide 00:00:00 [facility] (groups A, C, Y and Branc h W-135) conjugate vaccine (MCV4P) TDAP 2013-01-21 Completed [facility] 00:00:00 [facility] HPV 2013-01-21 Completed [facility] 00:00:00 [facility] Meningococcal 2013-01-21 Completed [facility] Polysaccharide 00:00:00 [facility] (groups A, C, Y and Branc h W-135) conjugate vaccine (MCV4P) TDAP 2013-01-21 Completed [facility] 00:00:00 [facility] HPV 2013-01-21 Completed [facility] 00:00:00 [facility] Meningococcal 2013-01-21 Completed [facility] Polysaccharide 00:00:00 [facility] (groups A, C, Y and Branc h W-135) conjugate vaccine (MCV4P) TDAP 2013-01-21 Completed [facility] 00:00:00 [facility] HPV 2013-01-21 Completed [facility] 00:00:00 [facility] Meningococcal 2013-01-21 Completed [facility] Polysaccharide 00:00:00 [facility] (groups A, C, Y and Branc h W-135) conjugate vaccine (MCV4P) TDAP 2013-01-21 Completed [facility] 00:00:00 [facility] HPV 2013-01-21 Completed [facility] 00:00:00 [facility] Meningococcal 2013-01-21 Completed [facility] Polysaccharide 00:00:00 [facility] (groups A, C, Y and Branc h W-135) conjugate vaccine (MCV4P) TDAP 2013-01-21 Completed [facility] 00:00:00 [facility] HPV 2013-01-21 Completed [facility] 00:00:00 [facility] Meningococcal 2013-01-21 Completed [facility] Polysaccharide 00:00:00 [facility] (groups A, C, Y and Branc h W-135) conjugate vaccine (MCV4P) TDAP 2013-01-21 Completed [facility] 00:00:00 [facility] HPV 2013-01-21 Completed [facility] 00:00:00 [facility] Meningococcal 2013-01-21 Completed [facility] Polysaccharide 00:00:00 [facility] (groups A, C, Y and Branc h W-135) conjugate vaccine (MCV4P) TDAP 2013-01-21 Completed [facility] 00:00:00 [facility] HPV 2013-01-21 Completed [facility] 00:00:00 [facility] Meningococcal 2013-01-21 Completed [facility] Polysaccharide 00:00:00 [facility] (groups A, C, Y and Branc h W-135) conjugate vaccine (MCV4P) TDAP 2013-01-21 Completed [facility] 00:00:00 [facility] HPV 2013-01-21 Completed [facility] 00:00:00 [facility] Meningococcal 2013-01-21 Completed [facility] Polysaccharide 00:00:00 [facility] (groups A, C, Y and Branc h W-135) conjugate vaccine (MCV4P) TDAP 2013-01-21 Completed [facility] 00:00:00 [facility] HPV 2013-01-21 Completed [facility] 00:00:00 [facility] Meningococcal 2013-01-21 Completed [facility] Polysaccharide 00:00:00 [facility] (groups A, C, Y and Branc h W-135) conjugate vaccine (MCV4P) TDAP 2013-01-21 Completed [facility] 00:00:00 [facility] HPV 2013-01-21 Completed [facility] 00:00:00 [facility] Meningococcal 2013-01-21 Completed [facility] Polysaccharide 00:00:00 [facility] (groups A, C, Y and Branc h W-135) conjugate vaccine (MCV4P) TDAP 2013-01-21 Completed [facility] 00:00:00 [facility] HPV 2013-01-21 Completed [facility] 00:00:00 [facility] Meningococcal 2013-01-21 Completed [facility] Polysaccharide 00:00:00 [facility] (groups A, C, Y and Branc h W-135) conjugate vaccine (MCV4P) TDAP 2013-01-21 Completed [facility] 00:00:00 [facility] HPV 2013-01-21 Completed [facility] 00:00:00 [facility] Meningococcal 2013-01-21 Completed [facility] Polysaccharide 00:00:00 [facility] (groups A, C, Y and Branc h W-135) conjugate vaccine (MCV4P) TDAP 2013-01-21 Completed [facility] 00:00:00 [facility] HPV 2013-01-21 Completed [facility] 00:00:00 [facility] Meningococcal 2013-01-21 Completed [facility] Polysaccharide 00:00:00 [facility] (groups A, C, Y and Branc h W-135) conjugate vaccine (MCV4P) TDAP 2013-01-21 Completed [facility] 00:00:00 [facility] HPV 2013-01-21 Completed [facility] 00:00:00 [facility] Meningococcal 2013-01-21 Completed [facility] Polysaccharide 00:00:00 [facility] (groups A, C, Y and Branc h W-135) conjugate vaccine (MCV4P) TDAP 2013-01-21 Completed [facility] 00:00:00 [facility] HPV 2013-01-21 Completed [facility] 00:00:00 [facility] Meningococcal 2013-01-21 Completed [facility] Polysaccharide 00:00:00 [facility] (groups A, C, Y and Branc h W-135) conjugate vaccine (MCV4P) TDAP 2013-01-21 Completed [facility] 00:00:00 [facility] HPV 2013-01-21 Completed [facility] 00:00:00 [facility] Meningococcal 2013-01-21 Completed [facility] Polysaccharide 00:00:00 [facility] (groups A, C, Y and Branc h W-135) conjugate vaccine (MCV4P) TDAP 2013-01-21 Completed [facility] 00:00:00 [facility] HPV 2013-01-21 Completed [facility] 00:00:00 [facility] Meningococcal 2013-01-21 Completed [facility] Polysaccharide 00:00:00 [facility] (groups A, C, Y and Branc h W-135) conjugate vaccine (MCV4P) TDAP 2013-01-21 Completed [facility] 00:00:00 [facility] HPV 2013-01-21 Completed [facility] 00:00:00 [facility] Meningococcal 2013-01-21 Completed [facility] Polysaccharide 00:00:00 [facility] (groups A, C, Y and Branc h W-135) conjugate vaccine (MCV4P) TDAP 2013-01-21 Completed [facility] 00:00:00 [facility] HPV 2013-01-21 Completed [facility] 00:00:00 [facility] Meningococcal 2013-01-21 Completed [facility] Polysaccharide 00:00:00 [facility] (groups A, C, Y and Branc h W-135) conjugate vaccine (MCV4P) TDAP 2013-01-21 Completed [facility] 00:00:00 [facility] HPV 2013-01-21 Completed [facility] 00:00:00 [facility] Meningococcal 2013-01-21 Completed [facility] Polysaccharide 00:00:00 [facility] (groups A, C, Y and Branc h W-135) conjugate vaccine (MCV4P) TDAP 2013-01-21 Completed [facility] 00:00:00 [facility] HPV 2013-01-21 Completed [facility] 00:00:00 [facility] Meningococcal 2013-01-21 Completed [facility] Polysaccharide 00:00:00 [facility] (groups A, C, Y and Branc h W-135) conjugate vaccine (MCV4P) TDAP 2013-01-21 Completed [facility] 00:00:00 [facility] HPV 2013-01-21 Completed [facility] 00:00:00 [facility] Meningococcal 2013-01-21 Completed [facility] Polysaccharide 00:00:00 [facility] (groups A, C, Y and Branc h W-135) conjugate vaccine (MCV4P) TDAP 2013-01-21 Completed [facility] 00:00:00 [facility] HPV 2013-01-21 Completed [facility] 00:00:00 [facility] Meningococcal 2013-01-21 Completed [facility] Polysaccharide 00:00:00 [facility] (groups A, C, Y and Branc h W-135) conjugate vaccine (MCV4P) TDAP 2013-01-21 Completed [facility] 00:00:00 [facility] HPV 2013-01-21 Completed [facility] 00:00:00 [facility] Meningococcal 2013-01-21 Completed [facility] Polysaccharide 00:00:00 [facility] (groups A, C, Y and Branc h W-135) conjugate vaccine (MCV4P) TDAP 2013-01-21 Completed [facility] 00:00:00 [facility] HPV 2013-01-21 Completed [facility] 00:00:00 [facility] Meningococcal 2013-01-21 Completed [facility] Polysaccharide 00:00:00 [facility] (groups A, C, Y and Branc h W-135) conjugate vaccine (MCV4P) TDAP 2013-01-21 Completed [facility] 00:00:00 [facility] HPV 2013-01-21 Completed [facility] of 00:00:00 [facility] Meningococcal 2013-01-21 Completed [facility] Polysaccharide 00:00:00 [facility] (groups A, C, Y and Branc h W-135) conjugate vaccine (MCV4P) TDAP 2013-01-21 Completed [facility] 00:00:00 [facility] HPV 2013-01-21 Completed [facility] 00:00:00 [facility] Meningococcal 2013-01-21 Completed [facility] Polysaccharide 00:00:00 [facility] (groups A, C, Y and Branc h W-135) conjugate vaccine (MCV4P) TDAP 2013-01-21 Completed [facility] 00:00:00 [facility] HPV 2013-01-21 Completed [facility] 00:00:00 [facility] Meningococcal 2013-01-21 Completed [facility] Polysaccharide 00:00:00 [facility] (groups A, C, Y and Branc h W-135) conjugate vaccine (MCV4P) TDAP 2013-01-21 Completed [facility] 00:00:00 [facility] HEPATITIS A 2006-06-27 Completed [facility] of 00:00:00 [facility] HEPATITIS A 2006-06-27 Completed [facility] 00:00:00 [facility] HEPATITIS A 2006-06-27 Completed [facility] 00:00:00 [facility] HEPATITIS A 2006-06-27 Completed [facility] 00:00:00 [facility] HEPATITIS A 2006-06-27 Completed [facility] 00:00:00 [facility] HEPATITIS A 2006-06-27 Completed [facility] 00:00:00 [facility] HEPATITIS A 2006-06-27 Completed [facility] 00:00:00 [facility] HEPATITIS A 2006-06-27 Completed [facility] 00:00:00 [facility] HEPATITIS A 2006-06-27 Completed [facility] 00:00:00 [facility] HEPATITIS A 2006-06-27 Completed [facility] 00:00:00 [facility] HEPATITIS A 2006-06-27 Completed [facility] 00:00:00 [facility] HEPATITIS A 2006-06-27 Completed [facility] 00:00:00 [facility] HEPATITIS A 2006-06-27 Completed [facility] 00:00:00 [facility] HEPATITIS A 2006-06-27 Completed [facility] 00:00:00 [facility] HEPATITIS A 2006-06-27 Completed [facility] 00:00:00 [facility] HEPATITIS A 2006-06-27 Completed [facility] 00:00:00 [facility] HEPATITIS A 2006-06-27 Completed [facility] 00:00:00 [facility] HEPATITIS A 2006-06-27 Completed [facility] 00:00:00 [facility] HEPATITIS A 2006-06-27 Completed [facility] 00:00:00 [facility] HEPATITIS A 2006-06-27 Completed [facility] 00:00:00 [facility] HEPATITIS A 2006-06-27 Completed [facility] 00:00:00 [facility] HEPATITIS A 2006-06-27 Completed [facility] 00:00:00 [facility] HEPATITIS A 2006-06-27 Completed [facility] 00:00:00 [facility] HEPATITIS A 2006-06-27 Completed [facility] 00:00:00 [facility] HEPATITIS A 2006-06-27 Completed [facility] 00:00:00 [facility] HEPATITIS A 2006-06-27 Completed [facility] 00:00:00 [facility] HEPATITIS A 2006-06-27 Completed [facility] 00:00:00 [facility] HEPATITIS A 2006-06-27 Completed [facility] 00:00:00 [facility] HEPATITIS A 2006-06-27 Completed [facility] 00:00:00 [facility] HEPATITIS A 2006-06-27 Completed [facility] 00:00:00 [facility] HEPATITIS A 2006-06-27 Completed [facility] 00:00:00 [facility] HEPATITIS A 2006-06-27 Completed [facility] 00:00:00 [facility] HEPATITIS A 2006-06-27 Completed [facility] 00:00:00 [facility] HEPATITIS A 2006-06-27 Completed [facility] 00:00:00 [facility] HEPATITIS A 2006-06-27 Completed [facility] 00:00:00 [facility] HEPATITIS A 2006-06-27 Completed [facility] of 00:00:00 [facility] HEPATITIS A 2006-06-27 Completed [facility] of 00:00:00 [facility] HEPATITIS A 2006-06-27 Completed [facility] of 00:00:00 [facility] Hep B, Adol or Pedi 2005-11-15 Completed Unive rsity of Dosage 00:00:00 [facility] MMR 2005-11-15 Completed [facility] of 00:00:00 [facility] Polio (IPV/OPV) 2005-11-15 Completed Universit [facility] 00:00:00 [facility] Varicella 2005-11-15 Completed University of (varivax)(chicken 00:00:00 [facility] Pneumococcal 7 2005-11-15 Completed [facility] of Conjugate, PCV7 00:00:00 [place] [facility] (Prevnar7) [facility] DTAP 2005-11-15 Completed [facility] 00:00:00 [facility] HEPATITIS A 2005-11-15 Completed [facility] of 00:00:00 [facility] Hep B, Adol or Pedi 2005-11-15 Completed Unive rsity of Dosage 00:00:00 [facility] MMR 2005-11-15 Completed [facility] of 00:00:00 [facility] Polio (IPV/OPV) 2005-11-15 Completed [facility] 00:00:00 [facility] Varicella 2005-11-15 Completed [facility] of (varivax)(chicken 00:00:00 [place] [facility] pox) [facility] Pneumococcal 7 2005-11-15 Completed [facility] of Conjugate, PCV7 00:00:00 [place] [facility] (Prevnar7) [facility] DTAP 2005-11-15 Completed [facility] 00:00:00 [facility] HEPATITIS A 2005-11-15 Completed [facility] of 00:00:00 [facility] Hep B, Adol or Pedi 2005-11-15 Completed Unive rsity of Dosage 00:00:00 [facility] MMR 2005-11-15 Completed [facility] of 00:00:00 [facility] Polio (IPV/OPV) 2005-11-15 Completed [facility] 00:00:00 [facility] Varicella 2005-11-15 Completed [facility] of (varivax)(chicken 00:00:00 [place] [facility] pox) [facility] Pneumococcal 7 2005-11-15 Completed [facility] of Conjugate, PCV7 00:00:00 [place] [facility] (Prevnar7) [facility] DTAP 2005-11-15 Completed [facility] 00:00:00 [facility] HEPATITIS A 2005-11-15 Completed [facility] of 00:00:00 [facility] Hep B, Adol or Pedi 2005-11-15 Completed Unive rsity of Dosage 00:00:00 [facility] MMR 2005-11-15 Completed [facility] 00:00:00 [facility] Polio (IPV/OPV) 2005-11-15 Completed [facility] 00:00:00 [facility] Varicella 2005-11-15 Completed [facility] of (varivax)(chicken 00:00:00 [place] [facility] pox) [facility] Pneumococcal 7 2005-11-15 Completed [facility] of Conjugate, PCV7 00:00:00 [facility] ical (Prevnar7) Branch DTAP 2005-11-15 Completed [facility] of 00:00:00 [facility] HEPATITIS A 2005-11-15 Completed [facility] of 00:00:00 [facility] Hep B, Adol or Pedi 2005-11-15 Completed Unive rsity of Dosage 00:00:00 [facility] MMR 2005-11-15 Completed [facility] of 00:00:00 [facility] Polio (IPV/OPV) 2005-11-15 Completed [facility] 00:00:00 [facility] Varicella 2005-11-15 Completed [facility] of (varivax)(chicken 00:00:00 [place] [facility] pox) [facility] Pneumococcal 7 2005-11-15 Completed [facility] of Conjugate, PCV7 00:00:00 [facility] ical (Prevnar7) Branch DTAP 2005-11-15 Completed [facility] of 00:00:00 [facility] HEPATITIS A 2005-11-15 Completed [facility] of 00:00:00 [facility] Hep B, Adol or Pedi 2005-11-15 Completed Unive rsity of Dosage 00:00:00 [facility] MMR 2005-11-15 Completed [facility] of 00:00:00 [facility] Polio (IPV/OPV) 2005-11-15 Completed [facility] 00:00:00 [facility] Varicella 2005-11-15 Completed [facility] of (varivax)(chicken 00:00:00 [place] [facility] pox) [facility] Pneumococcal 7 2005-11-15 Completed [facility] of Conjugate, PCV7 00:00:00 [place] [facility] (Prevnar7) [facility] DTAP 2005-11-15 Completed [facility] of 00:00:00 [facility] HEPATITIS A 2005-11-15 Completed [facility] of 00:00:00 [facility] Hep B, Adol or Pedi 2005-11-15 Completed Unive rsity of Dosage 00:00:00 [facility] MMR 2005-11-15 Completed [facility] of 00:00:00 [facility] Polio (IPV/OPV) 2005-11-15 Completed [facility] 00:00:00 [facility] Varicella 2005-11-15 Completed [facility] of (varivax)(chicken 00:00:00 [place] [facility] pox) [facility] Pneumococcal 7 2005-11-15 Completed [facility] of Conjugate, PCV7 00:00:00 [place] [facility] (Prevnar7) [facility] DTAP 2005-11-15 Completed [facility] 00:00:00 [facility] HEPATITIS A 2005-11-15 Completed [facility] of 00:00:00 [facility] Hep B, Adol or Pedi 2005-11-15 Completed Unive rsity of Dosage 00:00:00 [facility] MMR 2005-11-15 Completed [facility] of 00:00:00 [facility] Polio (IPV/OPV) 2005-11-15 Completed [facility] 00:00:00 [facility] Varicella 2005-11-15 Completed [facility] of (varivax)(chicken 00:00:00 [place] [facility] pox) [facility] Pneumococcal 7 2005-11-15 Completed [facility] of Conjugate, PCV7 00:00:00 [place] [facility] (Prevnar7) [facility] DTAP 2005-11-15 Completed [facility] 00:00:00 [facility] HEPATITIS A 2005-11-15 Completed [facility] of 00:00:00 [facility] Hep B, Adol or Pedi 2005-11-15 Completed Unive rsity of Dosage 00:00:00 [facility] MMR 2005-11-15 Completed [facility] of 00:00:00 [facility] Polio (IPV/OPV) 2005-11-15 Completed [facility]it [facility] 00:00:00 [facility] Varicella 2005-11-15 Completed [facility] of (varivax)(chicken 00:00:00 [place] [facility] pox) [facility] Pneumococcal 7 2005-11-15 Completed [facility] of Conjugate, PCV7 00:00:00 [place] [facility] (Prevnar7) [facility] DTAP 2005-11-15 Completed [facility] of 00:00:00 [facility] HEPATITIS A 2005-11-15 Completed [facility] of 00:00:00 [facility] Hep B, Adol or Pedi 2005-11-15 Completed Unive rsity of Dosage 00:00:00 [facility] MMR 2005-11-15 Completed [facility] of 00:00:00 [facility] Polio (IPV/OPV) 2005-11-15 Completed [facility] of 00:00:00 [facility] Varicella 2005-11-15 Completed [facility] of (varivax)(chicken 00:00:00 [place] [facility] pox) [facility] Pneumococcal 7 2005-11-15 Completed [facility] of Conjugate, PCV7 00:00:00 [place] [facility] (Prevnar7) [facility] DTAP 2005-11-15 Completed [facility] of 00:00:00 [facility] HEPATITIS A 2005-11-15 Completed [facility] of 00:00:00 [facility] Hep B, Adol or Pedi 2005-11-15 Completed Unive rsity of Dosage 00:00:00 [facility] MMR 2005-11-15 Completed [facility] of 00:00:00 [facility] Polio (IPV/OPV) 2005-11-15 Completed [facility] 00:00:00 [facility] Varicella 2005-11-15 Completed [facility] of (varivax)(chicken 00:00:00 [place] [facility] pox) [facility] Pneumococcal 7 2005-11-15 Completed [facility] of Conjugate, PCV7 00:00:00 [place] [facility] (Prevnar7) [facility] DTAP 2005-11-15 Completed [facility] 00:00:00 [facility] HEPATITIS A 2005-11-15 Completed [facility] of 00:00:00 [facility] Hep B, Adol or Pedi 2005-11-15 Completed Unive rsity of Dosage 00:00:00 [facility] MMR 2005-11-15 Completed [facility] of 00:00:00 [facility] Polio (IPV/OPV) 2005-11-15 Completed [facility] 00:00:00 [facility] Varicella 2005-11-15 Completed [facility] of (varivax)(chicken 00:00:00 [place] [facility] pox) [facility] Pneumococcal 7 2005-11-15 Completed [facility] of Conjugate, PCV7 00:00:00 [place] [facility] (Prevnar7) [facility] DTAP 2005-11-15 Completed [facility] of 00:00:00 [facility] HEPATITIS A 2005-11-15 Completed [facility] of 00:00:00 [facility] Hep B, Adol or Pedi 2005-11-15 Completed Unive rsity of Dosage 00:00:00 [facility] MMR 2005-11-15 Completed [facility] of 00:00:00 [facility] Polio (IPV/OPV) 2005-11-15 Completed [facility] 00:00:00 [facility] Varicella 2005-11-15 Completed [facility] of (varivax)(chicken 00:00:00 [place] [facility] pox) [facility] Pneumococcal 7 2005-11-15 Completed [facility] of Conjugate, PCV7 00:00:00 [place] [facility] (Prevnar7) [facility] DTAP 2005-11-15 Completed [facility] 00:00:00 [facility] HEPATITIS A 2005-11-15 Completed [facility] of 00:00:00 [facility] Hep B, Adol or Pedi 2005-11-15 Completed Unive rsity of Dosage 00:00:00 [facility] MMR 2005-11-15 Completed [facility] of 00:00:00 [facility] Polio (IPV/OPV) 2005-11-15 Completed [facility] 00:00:00 [facility] Varicella 2005-11-15 Completed [facility] of (varivax)(chicken 00:00:00 [place] [facility] pox) [facility] Pneumococcal 7 2005-11-15 Completed [facility] of Conjugate, PCV7 00:00:00 [place] [facility] (Prevnar7) [facility] DTAP 2005-11-15 Completed [facility] 00:00:00 [facility] HEPATITIS A 2005-11-15 Completed [facility] of 00:00:00 [facility] Hep B, Adol or Pedi 2005-11-15 Completed Unive rsity of Dosage 00:00:00 [facility] MMR 2005-11-15 Completed [facility] of 00:00:00 [facility] Polio (IPV/OPV) 2005-11-15 Completed [facility] 00:00:00 [facility] Varicella 2005-11-15 Completed [facility] of (varivax)(chicken 00:00:00 [place] [facility] pox) [facility] Pneumococcal 7 2005-11-15 Completed [facility] of Conjugate, PCV7 00:00:00 [place] [facility] (Prevnar7) [facility] DTAP 2005-11-15 Completed [facility] 00:00:00 [facility] HEPATITIS A 2005-11-15 Completed [facility] of 00:00:00 [facility] Hep B, Adol or Pedi 2005-11-15 Completed Unive rsity of Dosage 00:00:00 [facility] MMR 2005-11-15 Completed [facility] of 00:00:00 [facility] Polio (IPV/OPV) 2005-11-15 Completed [facility] 00:00:00 [facility] Varicella 2005-11-15 Completed [facility] of (varivax)(chicken 00:00:00 [place] [facility] pox) [facility] Pneumococcal 7 2005-11-15 Completed [facility] of Conjugate, PCV7 00:00:00 [place] [facility] (Prevnar7) [facility] DTAP 2005-11-15 Completed [facility] 00:00:00 [facility] HEPATITIS A 2005-11-15 Completed [facility] of 00:00:00 [facility] Hep B, Adol or Pedi 2005-11-15 Completed Unive rsity of Dosage 00:00:00 [facility] MMR 2005-11-15 Completed [facility] of 00:00:00 [facility] Polio (IPV/OPV) 2005-11-15 Completed [facility] 00:00:00 [facility] Varicella 2005-11-15 Completed [facility] of (varivax)(chicken 00:00:00 [place] [facility] pox) [facility] Pneumococcal 7 2005-11-15 Completed [facility] of Conjugate, PCV7 00:00:00 [place] [facility] (Prevnar7) [facility] DTAP 2005-11-15 Completed [facility] 00:00:00 [facility] HEPATITIS A 2005-11-15 Completed [facility] of 00:00:00 [facility] Hep B, Adol or Pedi 2005-11-15 Completed Unive rsity of Dosage 00:00:00 [facility] MMR 2005-11-15 Completed [facility] of 00:00:00 [facility] Polio (IPV/OPV) 2005-11-15 Completed [facility] 00:00:00 [facility] Varicella 2005-11-15 Completed [facility] of (varivax)(chicken 00:00:00 [place] [facility] pox) [facility] Pneumococcal 7 2005-11-15 Completed [facility] of Conjugate, PCV7 00:00:00 [place] [facility] (Prevnar7) [facility] DTAP 2005-11-15 Completed [facility] of 00:00:00 [facility] HEPATITIS A 2005-11-15 Completed [facility] of 00:00:00 [facility] Hep B, Adol or Pedi 2005-11-15 Completed Unive rsity of Dosage 00:00:00 [facility] MMR 2005-11-15 Completed [facility] of 00:00:00 [facility] Polio (IPV/OPV) 2005-11-15 Completed [facility] 00:00:00 [facility] Varicella 2005-11-15 Completed [facility] of (varivax)(chicken 00:00:00 [facility] edical pox) Branch Pneumococcal 7 2005-11-15 Completed University of Conjugate, PCV7 00:00:00 [place] [facility] (Prevnar7) Branch DTaP, Unspecified 2005-11-15 Completed Univers ity of Formulation 00:00:00 [facility] IPV 2005-11-15 Completed [facility] of 00:00:00 [facility] DTAP 2005-11-15 Completed [facility] of 00:00:00 [facility] HEPATITIS A 2005-11-15 Completed [facility] of 00:00:00 [facility] Hep B, Adol or Pedi 2005-11-15 Completed Unive rsity of Dosage 00:00:00 [facility] MMR 2005-11-15 Completed [facility] of 00:00:00 [facility] Polio (IPV/OPV) 2005-11-15 Completed Universit [facility] of 00:00:00 [facility] Varicella 2005-11-15 Completed University of (varivax)(chicken 00:00:00 [facility] edical pox) Branch Pneumococcal 7 2005-11-15 Completed University of Conjugate, PCV7 00:00:00 [place] [facility] (Prevnar7) [facility] DTaP, Unspecified 2005-11-15 Completed Univers ity of Formulation 00:00:00 [facility] IPV 2005-11-15 Completed [facility] of 00:00:00 [facility] DTAP 2005-11-15 Completed [facility] of 00:00:00 [facility] HEPATITIS A 2005-11-15 Completed [facility] of 00:00:00 [facility] Hep B, Adol or Pedi 2005-11-15 Completed Unive rsity of Dosage 00:00:00 [facility] MMR 2005-11-15 Completed [facility] of 00:00:00 [facility] Polio (IPV/OPV) 2005-11-15 Completed [facility] of 00:00:00 [facility] Varicella 2005-11-15 Completed [facility] of (varivax)(chicken 00:00:00 [place] [facility] pox) [facility] Pneumococcal 7 2005-11-15 Completed [facility] of Conjugate, PCV7 00:00:00 [place] [facility] (Prevnar7) Branch DTaP, Unspecified 2005-11-15 Completed Univers ity of Formulation 00:00:00 [facility] IPV 2005-11-15 Completed [facility] of 00:00:00 [facility] DTAP 2005-11-15 Completed [facility] of 00:00:00 [facility] HEPATITIS A 2005-11-15 Completed [facility] of 00:00:00 [facility] Hep B, Adol or Pedi 2005-11-15 Completed Unive rsity of Dosage 00:00:00 [facility] MMR 2005-11-15 Completed [facility] of 00:00:00 [facility] Polio (IPV/OPV) 2005-11-15 Completed [facility] of 00:00:00 [facility] Varicella 2005-11-15 Completed [facility] of (varivax)(chicken 00:00:00 [place] [facility] pox) [facility] Pneumococcal 7 2005-11-15 Completed [facility] of Conjugate, PCV7 00:00:00 [place] [facility] (Prevnar7) Branch DTaP, Unspecified 2005-11-15 Completed Univers ity of Formulation 00:00:00 [facility] IPV 2005-11-15 Completed [facility] of 00:00:00 [facility] DTAP 2005-11-15 Completed [facility] of 00:00:00 [facility] HEPATITIS A 2005-11-15 Completed [facility] of 00:00:00 [facility] Hep B, Adol or Pedi 2005-11-15 Completed Unive rsity of Dosage 00:00:00 [facility] MMR 2005-11-15 Completed [facility] of 00:00:00 [facility] Polio (IPV/OPV) 2005-11-15 Completed [facility]it [facility] of 00:00:00 [facility] Varicella 2005-11-15 Completed [facility] of (varivax)(chicken 00:00:00 [place] [facility] pox) [facility] Pneumococcal 7 2005-11-15 Completed [facility] of Conjugate, PCV7 00:00:00 [place] [facility] (Prevnar7) Branch DTaP, Unspecified 2005-11-15 Completed Univers ity of Formulation 00:00:00 [facility] IPV 2005-11-15 Completed University of 00:00:00 [facility] DTAP 2005-11-15 Completed [facility] of 00:00:00 [facility] HEPATITIS A 2005-11-15 Completed University of 00:00:00 [facility] Hep B, Adol or Pedi 2005-11-15 Completed Unive rsity of Dosage 00:00:00 [facility] MMR 2005-11-15 Completed [facility] of 00:00:00 [facility] Polio (IPV/OPV) 2005-11-15 Completed Universit [facility] of 00:00:00 [facility] Varicella 2005-11-15 Completed [facility] of (varivax)(chicken 00:00:00 [place] [facility] pox) Branch Pneumococcal 7 2005-11-15 Completed [facility] of Conjugate, PCV7 00:00:00 [place] [facility] (Prevnar7) Branch DTaP, Unspecified 2005-11-15 Completed Univers ity of Formulation 00:00:00 [facility] IPV 2005-11-15 Completed [facility] of 00:00:00 [facility] DTAP 2005-11-15 Completed [facility] of 00:00:00 [facility] HEPATITIS A 2005-11-15 Completed [facility] of 00:00:00 [facility] Hep B, Adol or Pedi 2005-11-15 Completed Unive rsity of Dosage 00:00:00 [facility] MMR 2005-11-15 Completed [facility] of 00:00:00 [facility] Polio (IPV/OPV) 2005-11-15 Completed Universit [facility] of 00:00:00 [facility] Varicella 2005-11-15 Completed [facility] of (varivax)(chicken 00:00:00 [place] [facility] pox) [facility] Pneumococcal 7 2005-11-15 Completed [facility] of Conjugate, PCV7 00:00:00 [place] [facility] (Prevnar7) Branch DTaP, Unspecified 2005-11-15 Completed Univers ity of Formulation 00:00:00 [facility] IPV 2005-11-15 Completed University of 00:00:00 [facility] DTAP 2005-11-15 Completed University of 00:00:00 [facility] HEPATITIS A 2005-11-15 Completed University of 00:00:00 [facility] Hep B, Adol or Pedi 2005-11-15 Completed Unive rsity of Dosage 00:00:00 [facility] MMR 2005-11-15 Completed [facility] of 00:00:00 [facility] Polio (IPV/OPV) 2005-11-15 Completed Universit [facility] of 00:00:00 [facility] Varicella 2005-11-15 Completed [facility] of (varivax)(chicken 00:00:00 [place] [facility] pox) [facility] Pneumococcal 7 2005-11-15 Completed [facility] of Conjugate, PCV7 00:00:00 [place] [facility] (Prevnar7) Branch DTaP, Unspecified 2005-11-15 Completed Univers ity of Formulation 00:00:00 [facility] IPV 2005-11-15 Completed University of 00:00:00 [facility] DTAP 2005-11-15 Completed [facility] of 00:00:00 [facility] HEPATITIS A 2005-11-15 Completed [facility] of 00:00:00 [facility] Hep B, Adol or Pedi 2005-11-15 Completed Unive rsity of Dosage 00:00:00 [facility] MMR 2005-11-15 Completed [facility] of 00:00:00 [facility] Polio (IPV/OPV) 2005-11-15 Completed [facility]it [facility] of 00:00:00 [facility] Varicella 2005-11-15 Completed [facility] of (varivax)(chicken 00:00:00 [place] [facility] pox) Branch Pneumococcal 7 2005-11-15 Completed [facility] of Conjugate, PCV7 00:00:00 [place] [facility] (Prevnar7) Branch DTaP, Unspecified 2005-11-15 Completed Univers ity of Formulation 00:00:00 [facility] IPV 2005-11-15 Completed [facility] of 00:00:00 [facility] DTAP 2005-11-15 Completed [facility] of 00:00:00 [facility] HEPATITIS A 2005-11-15 Completed [facility] of 00:00:00 [facility] Hep B, Adol or Pedi 2005-11-15 Completed Unive rsity of Dosage 00:00:00 [facility] MMR 2005-11-15 Completed [facility] of 00:00:00 [facility] Polio (IPV/OPV) 2005-11-15 Completed Universit [facility] of 00:00:00 [facility] Varicella 2005-11-15 Completed University of (varivax)(chicken 00:00:00 [facility] edical pox) Branch Pneumococcal 7 2005-11-15 Completed University of Conjugate, PCV7 00:00:00 [place] [facility] (Prevnar7) Branch DTaP, Unspecified 2005-11-15 Completed Univers ity of Formulation 00:00:00 [facility] IPV 2005-11-15 Completed [facility] of 00:00:00 [facility] DTAP 2005-11-15 Completed [facility] of 00:00:00 [facility] HEPATITIS A 2005-11-15 Completed [facility] of 00:00:00 [facility] Hep B, Adol or Pedi 2005-11-15 Completed Unive rsity of Dosage 00:00:00 [facility] MMR 2005-11-15 Completed [facility] of 00:00:00 [facility] Polio (IPV/OPV) 2005-11-15 Completed [facility]it [facility] 00:00:00 [facility] Varicella 2005-11-15 Completed [facility] of (varivax)(chicken 00:00:00 [place] [facility] pox) [facility] Pneumococcal 7 2005-11-15 Completed [facility] of Conjugate, PCV7 00:00:00 [place] [facility] (Prevnar7) Branch DTaP, Unspecified 2005-11-15 Completed Univers it[facility] of Formulation 00:00:00 [facility] IPV 2005-11-15 Completed [facility] of 00:00:00 [facility] DTAP 2005-11-15 Completed [facility] of 00:00:00 [facility] HEPATITIS A 2005-11-15 Completed [facility] of 00:00:00 [facility] Hep B, Adol or Pedi 2005-11-15 Completed Unive rsity of Dosage 00:00:00 [facility] MMR 2005-11-15 Completed [facility] of 00:00:00 [facility] Polio (IPV/OPV) 2005-11-15 Completed [facility] 00:00:00 [facility] Varicella 2005-11-15 Completed [facility] of (varivax)(chicken 00:00:00 [place] [facility] pox) [facility] Pneumococcal 7 2005-11-15 Completed [facility] of Conjugate, PCV7 00:00:00 [place] [facility] (Prevnar7) [facility] DTaP, Unspecified 2005-11-15 Completed [facility] it[facility] Formulation 00:00:00 [facility] IPV 2005-11-15 Completed [facility] of 00:00:00 [facility] DTAP 2005-11-15 Completed [facility] of 00:00:00 [facility] HEPATITIS A 2005-11-15 Completed [facility] 00:00:00 [facility] Hep B, Adol or Pedi 2005-11-15 Completed [facility] Dosage 00:00:00 [facility] MMR 2005-11-15 Completed [facility] 00:00:00 [facility] Polio (IPV/OPV) 2005-11-15 Completed [facility] 00:00:00 [facility] Varicella 2005-11-15 Completed [facility] of (varivax)(chicken 00:00:00 [place] [facility] pox) [facility] Pneumococcal 7 2005-11-15 Completed [facility] of Conjugate, PCV7 00:00:00 [place] [facility] (Prevnar7) [facility] DTaP, Unspecified 2005-11-15 Completed [facility] Formulation 00:00:00 [facility] IPV 2005-11-15 Completed [facility] 00:00:00 [facility] DTAP 2005-11-15 Completed [facility] 00:00:00 [facility] HEPATITIS A 2005-11-15 Completed [facility] 00:00:00 [facility] Hep B, Adol or Pedi 2005-11-15 Completed [facility] Dosage 00:00:00 [facility] MMR 2005-11-15 Completed [facility] 00:00:00 [facility] Polio (IPV/OPV) 2005-11-15 Completed [facility] 00:00:00 [facility] Varicella 2005-11-15 Completed [facility] (varivax)(chicken 00:00:00 [place] [facility] pox) [facility] Pneumococcal 7 2005-11-15 Completed [facility] Conjugate, PCV7 00:00:00 [place] [facility] (Prevnar7) [facility] DTaP, Unspecified 2005-11-15 Completed [facility] Formulation 00:00:00 [facility] IPV 2005-11-15 Completed [facility] 00:00:00 [facility] DTAP 2005-11-15 Completed [facility] 00:00:00 [facility] HEPATITIS A 2005-11-15 Completed [facility] 00:00:00 [facility] Hep B, Adol or Pedi 2005-11-15 Completed [facility] Dosage 00:00:00 [facility] MMR 2005-11-15 Completed [facility] 00:00:00 [facility] Polio (IPV/OPV) 2005-11-15 Completed [facility] 00:00:00 [facility] Varicella 2005-11-15 Completed [facility] (varivax)(chicken 00:00:00 [place] [facility] pox) [facility] Pneumococcal 7 2005-11-15 Completed [facility] Conjugate, PCV7 00:00:00 [place] [facility] (Prevnar7) [facility] DTaP, Unspecified 2005-11-15 Completed [facility] Formulation 00:00:00 [facility] IPV 2005-11-15 Completed [facility] 00:00:00 [facility] DTAP 2005-11-15 Completed [facility] 00:00:00 [facility] HEPATITIS A 2005-11-15 Completed [facility] 00:00:00 [facility] Hep B, Adol or Pedi 2005-11-15 Completed [facility] Dosage 00:00:00 [facility] MMR 2005-11-15 Completed [facility] 00:00:00 [facility] Polio (IPV/OPV) 2005-11-15 Completed [facility] 00:00:00 [facility] Varicella 2005-11-15 Completed [facility] (varivax)(chicken 00:00:00 [place] [facility] pox) [facility] Pneumococcal 7 2005-11-15 Completed [facility] Conjugate, PCV7 00:00:00 [place] [facility] (Prevnar7) [facility] DTaP, Unspecified 2005-11-15 Completed [facility] Formulation 00:00:00 [facility] IPV 2005-11-15 Completed [facility] 00:00:00 [facility] DTAP 2005-11-15 Completed [facility] 00:00:00 [facility] HEPATITIS A 2005-11-15 Completed [facility] 00:00:00 [facility] Hep B, Adol or Pedi 2005-11-15 Completed [facility] Dosage 00:00:00 [facility] MMR 2005-11-15 Completed [facility] 00:00:00 [facility] Polio (IPV/OPV) 2005-11-15 Completed [facility] 00:00:00 [facility] Varicella 2005-11-15 Completed [facility] (varivax)(chicken 00:00:00 [place] [facility] pox) [facility] Pneumococcal 7 2005-11-15 Completed [facility] Conjugate, PCV7 00:00:00 [place] [facility] (Prevnar7) [facility] DTAP 2005-11-15 Completed [facility] 00:00:00 [facility] HEPATITIS A 2005-11-15 Completed [facility] 00:00:00 [facility] Hep B, Adol or Pedi 2005-11-15 Completed [facility] of Dosage 00:00:00 [facility] MMR 2005-11-15 Completed [facility] 00:00:00 [facility] Polio (IPV/OPV) 2005-11-15 Completed [facility] 00:00:00 [facility] Varicella 2005-11-15 Completed [facility] (varivax)(chicken 00:00:00 [place] [facility] pox) [facility] Pneumococcal 7 2005-11-15 Completed [facility] Conjugate, PCV7 00:00:00 [place] [facility] (Prevnar7) [facility] DTAP 2005-11-15 Completed [facility] 00:00:00 [facility] HEPATITIS A 2005-11-15 Completed [facility] 00:00:00 [facility] Hep B, Adol or Pedi 2005-11-15 Completed [facility] of Dosage 00:00:00 [facility] MMR 2005-11-15 Completed [facility] 00:00:00 [facility] Polio (IPV/OPV) 2005-11-15 Completed [facility] 00:00:00 [facility] Varicella 2005-11-15 Completed [facility] (varivax)(chicken 00:00:00 [place] [facility] pox) [facility] Pneumococcal 7 2005-11-15 Completed [facility] Conjugate, PCV7 00:00:00 [place] [facility] (Prevnar7) [facility] DTAP 2005-11-15 Completed [facility] 00:00:00 [facility] HEPATITIS A 2005-11-15 Completed [facility] 00:00:00 [facility] Hep B, Adol or Pedi 2005-11-15 Completed [facility] of Dosage 00:00:00 [facility] MMR 2005-11-15 Completed [facility] 00:00:00 [facility] Polio (IPV/OPV) 2005-11-15 Completed [facility] 00:00:00 [facility] Varicella 2005-11-15 Completed [facility] (varivax)(chicken 00:00:00 [place] [facility] pox) [facility] Pneumococcal 7 2005-11-15 Completed [facility] Conjugate, PCV7 00:00:00 [place] [facility] (Prevnar7) [facility] DTAP 2005-11-15 Completed [facility] 00:00:00 [facility] HEPATITIS A 2005-11-15 Completed [facility] 00:00:00 [facility] Varicella 2001-11-18 Completed [facility] (varivax)(chicken 00:00:00 [place] [facility] pox[facility] Varicella 2001-11-18 Completed University [...] (varivax)(chicken 00:00:00 [place] [facility] pox) [facility] DTaP, Unspecified 2001-11-18 Completed [facility] it[facility] Formulation 00:00:00 [facility] Varicella 2001-11-18 Completed [facility] of (varivax)(chicken 00:00:00 [place] [facility] pox) [facility] DTaP, Unspecified 2001-11-18 Completed [facility] Formulation 00:00:00 [facility] Varicella 2001-11-18 Completed [facility] of (varivax)(chicken 00:00:00 [place] [facility] pox) [facility] DTaP, Unspecified 2001-11-18 Completed [facility] of Formulation 00:00:00 [facility] Varicella 2001-11-18 Completed [facility] (varivax)(chicken 00:00:00 [place] [facility] pox) [facility] DTaP, Unspecified 2001-11-18 Completed [facility] it[facility] Formulation 00:00:00 [facility] Varicella 2001-11-18 Completed [facility] (varivax)(chicken 00:00:00 [place] [facility] pox) [facility] DTaP, Unspecified 2001-11-18 Completed [facility] Formulation 00:00:00 [facility] Varicella 2001-11-18 Completed [facility] (varivax)(chicken 00:00:00 [place] [facility] pox) [facility] DTaP, Unspecified 2001-11-18 Completed [facility] Formulation 00:00:00 [facility] Varicella 2001-11-18 Completed [facility] of (varivax)(chicken 00:00:00 [place] [facility] pox) [facility] DTaP, Unspecified 2001-11-18 Completed [facility] of Formulation 00:00:00 [facility] Varicella 2001-11-18 Completed [facility] (varivax)(chicken 00:00:00 [place] [facility] pox) [facility] DTaP, Unspecified 2001-11-18 Completed [facility] Formulation 00:00:00 [facility] Varicella 2001-11-18 Completed [facility] (varivax)(chicken 00:00:00 [place] [facility] pox) [facility] DTaP, Unspecified 2001-11-18 Completed [facility] it[facility] Formulation 00:00:00 [facility] Varicella 2001-11-18 Completed [facility] (varivax)(chicken 00:00:00 [place] [facility] pox) [facility] DTaP, Unspecified 2001-11-18 Completed [facility] Formulation 00:00:00 [facility] Varicella 2001-11-18 Completed [facility] (varivax)(chicken 00:00:00 [place] [facility] pox) [facility] DTaP, Unspecified 2001-11-18 Completed [facility] it[facility] Formulation 00:00:00 [facility] Varicella 2001-11-18 Completed [facility] (varivax)(chicken 00:00:00 [place] [facility] pox) [facility] DTaP, Unspecified 2001-11-18 Completed [facility] ity of Formulation 00:00:00 [facility] Varicella 2001-11-18 Completed [facility] (varivax)(chicken 00:00:00 [place] [facility] pox) [facility] DTaP, Unspecified 2001-11-18 Completed [facility] it[facility] of Formulation 00:00:00 [facility] Varicella 2001-11-18 Completed [facility] (varivax)(chicken 00:00:00 [place] [facility] pox) [facility] DTaP, Unspecified 2001-11-18 Completed [facility] Formulation 00:00:00 [facility] Varicella 2001-11-18 Completed [facility] (varivax)(chicken 00:00:00 [place] [facility] pox) [facility] DTaP, Unspecified 2001-11-18 Completed [facility] it[facility] of Formulation 00:00:00 [facility] Varicella 2001-11-18 Completed [facility] (varivax)(chicken 00:00:00 [place] [facility] pox) [facility] DTaP, Unspecified 2001-11-18 Completed [facility] it[facility] Formulation 00:00:00 [facility] Varicella 2001-11-18 Completed [facility] (varivax)(chicken 00:00:00 [place] [facility] pox) [facility] Varicella 2001-11-18 Completed [facility] (varivax)(chicken 00:00:00 [place] [facility] pox) [facility] Varicella 2001-11-18 Completed [facility] (varivax)(chicken 00:00:00 [place] [facility] pox) [facility] Varicella 2001-11-18 Completed [facility] (varivax)(chicken 00:00:00 [place] [facility] pox) [facility] Hep B, Adol or Pedi 2001 Completed [facility] of Dosage 00:00:00 [facility] MMR 2001 Completed [facility] 00:00:00 [facility] Polio (IPV/OPV) 2001 Completed [facility] 00:00:00 [facility] Pneumococcal 7 2001 Completed [facility] of Conjugate, PCV7 00:00:00 [facility] ical (Prevnar7) Branch HIB 4 Dose Schedule 2001 Completed [facility]ive [facility]ity of 00:00:00 [facility] Hep B, Adol or Pedi 2001 Completed [facility] of Dosage 00:00:00 [facility] MMR 2001 Completed [facility] 00:00:00 [facility] Polio (IPV/OPV) 2001 Completed [facility] 00:00:00 [facility] Pneumococcal 7 2001 Completed [facility] Conjugate, PCV7 00:00:00 [place] [facility] (Prevnar7) [facility] HIB 4 Dose Schedule 2001 Completed [facility] of 00:00:00 [facility] Hep B, Adol or Pedi 2001 Completed [facility] of Dosage 00:00:00 [facility] MMR 2001 Completed [facility] 00:00:00 [facility] Polio (IPV/OPV) 2001 Completed [facility] 00:00:00 [facility] Pneumococcal 7 2001 Completed [facility] Conjugate, PCV7 00:00:00 [place] [facility] (Prevnar7) [facility] HIB 4 Dose Schedule 2001 Completed [facility] of 00:00:00 [facility] Hep B, Adol or Pedi 2001 Completed [facility] of Dosage 00:00:00 [facility] MMR 2001 Completed [facility] 00:00:00 [facility] Polio (IPV/OPV) 2001 Completed [facility] 00:00:00 [facility] Pneumococcal 7 2001 Completed [facility] Conjugate, PCV7 00:00:00 [place] [facility] (Prevnar7) [facility] HIB 4 Dose Schedule 2001 Completed [facility] of 00:00:00 [facility] Hep B, Adol or Pedi 2001 Completed [facility] of Dosage 00:00:00 [facility] MMR 2001 Completed [facility] 00:00:00 [facility] Polio (IPV/OPV) 2001 Completed [facility] 00:00:00 [facility] Pneumococcal 7 2001 Completed [facility] Conjugate, PCV7 00:00:00 [place] [facility] (Prevnar7) [facility] HIB 4 Dose Schedule 2001 Completed [facility] of 00:00:00 [facility] Hep B, Adol or Pedi 2001 Completed [facility] of Dosage 00:00:00 [facility] MMR 2001 Completed [facility] 00:00:00 [facility] Polio (IPV/OPV) 2001 Completed [facility] 00:00:00 [facility] Pneumococcal 7 2001 Completed [facility] Conjugate, PCV7 00:00:00 [place] [facility] (Prevnar7) Branch HIB 4 Dose Schedule 2001 Completed [facility] of 00:00:00 [facility] Hep B, Adol or Pedi 2001 Completed [facility] of Dosage 00:00:00 [facility] MMR 2001 Completed [facility] 00:00:00 [facility] Polio (IPV/OPV) 2001 Completed [facility] 00:00:00 [facility] Pneumococcal 7 2001 Completed [facility] Conjugate, PCV7 00:00:00 [place] [facility] (Prevnar7) Branch HIB 4 Dose Schedule 2001 Completed [facility] of 00:00:00 [facility] Hep B, Adol or Pedi 2001 Completed [facility] of Dosage 00:00:00 [facility] MMR 2001 Completed [facility] 00:00:00 [facility] Polio (IPV/OPV) 2001 Completed [facility] 00:00:00 [facility] Pneumococcal 7 2001 Completed [facility] of Conjugate, PCV7 00:00:00 [place] [facility] (Prevnar7) Branch HIB 4 Dose Schedule 2001 Completed [facility] of 00:00:00 [facility] Hep B, Adol or Pedi 2001 Completed [facility]ive [facility] of Dosage 00:00:00 [facility] MMR 2001 Completed [facility] 00:00:00 [facility] Polio (IPV/OPV) 2001 Completed [facility] 00:00:00 [facility] Pneumococcal 7 2001 Completed [facility] Conjugate, PCV7 00:00:00 [place] [facility] (Prevnar7) Branch HIB 4 Dose Schedule 2001 Completed [facility] of 00:00:00 [facility] Hep B, Adol or Pedi 2001 Completed [facility] of Dosage 00:00:00 [facility] MMR 2001 Completed [facility] 00:00:00 [facility] Polio (IPV/OPV) 2001 Completed [facility] 00:00:00 [facility] Pneumococcal 7 2001 Completed [facility] Conjugate, PCV7 00:00:00 [place] [facility] (Prevnar7) Branch HIB 4 Dose Schedule 2001 Completed [facility] of 00:00:00 [facility] Hep B, Adol or Pedi 2001 Completed [facility] of Dosage 00:00:00 [facility] MMR 2001 Completed [facility] 00:00:00 [facility] Polio (IPV/OPV) 2001 Completed [facility] 00:00:00 [facility] Pneumococcal 7 2001 Completed [facility] of Conjugate, PCV7 00:00:00 [place] [facility] (Prevnar7) Branch HIB 4 Dose Schedule 2001 Completed [facility] of 00:00:00 [facility] Hep B, Adol or Pedi 2001 Completed [facility] of Dosage 00:00:00 [facility] MMR 2001 Completed [facility] 00:00:00 [facility] Polio (IPV/OPV) 2001 Completed [facility] 00:00:00 [facility] Pneumococcal 7 2001 Completed [facility] Conjugate, PCV7 00:00:00 [place] [facility] (Prevnar7) Branch HIB 4 Dose Schedule 2001 Completed [facility] of 00:00:00 [facility] Hep B, Adol or Pedi 2001 Completed [facility] of Dosage 00:00:00 [facility] MMR 2001 Completed [facility] 00:00:00 [facility] Polio (IPV/OPV) 2001 Completed [facility] 00:00:00 [facility] Pneumococcal 7 2001 Completed [facility] of Conjugate, PCV7 00:00:00 [place] [facility] (Prevnar7) Branch HIB 4 Dose Schedule 2001 Completed [facility] of 00:00:00 [facility] Hep B, Adol or Pedi 2001 Completed [facility] of Dosage 00:00:00 [facility] MMR 2001 Completed [facility] 00:00:00 [facility] Polio (IPV/OPV) 2001 Completed [facility] 00:00:00 [facility] Pneumococcal 7 2001 Completed [facility] of Conjugate, PCV7 00:00:00 [place] [facility] (Prevnar7) Branch HIB 4 Dose Schedule 2001 Completed [facility] of 00:00:00 [facility] Hep B, Adol or Pedi 2001 Completed [facility] of Dosage 00:00:00 [facility] MMR 2001 Completed [facility] 00:00:00 [facility] Polio (IPV/OPV) 2001 Completed [facility] 00:00:00 [facility] Pneumococcal 7 2001 Completed [facility] of Conjugate, PCV7 00:00:00 [place] [facility] (Prevnar7) Branch HIB 4 Dose Schedule 2001 Completed [facility] of 00:00:00 [facility] Hep B, Adol or Pedi 2001 Completed [facility] of Dosage 00:00:00 [facility] MMR 2001 Completed [facility] 00:00:00 [facility] Polio (IPV/OPV) 2001 Completed [facility] 00:00:00 [facility] Pneumococcal 7 2001 Completed [facility] of Conjugate, PCV7 00:00:00 [place] [facility] (Prevnar7) Branch HIB 4 Dose Schedule 2001 Completed [facility] of 00:00:00 [facility] Hep B, Adol or Pedi 2001 Completed [facility] of Dosage 00:00:00 [facility] MMR 2001 Completed [facility] 00:00:00 [facility] Polio (IPV/OPV) 2001 Completed [facility] 00:00:00 [facility] Pneumococcal 7 2001 Completed [facility] of Conjugate, PCV7 00:00:00 [place] [facility] (Prevnar7) Branch HIB 4 Dose Schedule 2001 Completed [facility] of 00:00:00 [facility] Hep B, Adol or Pedi 2001 Completed [facility] of Dosage 00:00:00 [facility] MMR 2001 Completed [facility] 00:00:00 [facility] Polio (IPV/OPV) 2001 Completed [facility] 00:00:00 [facility] Pneumococcal 7 2001 Completed [facility] Conjugate, PCV7 00:00:00 [place] [facility] (Prevnar7) [facility] HIB 4 Dose Schedule 2001 Completed [facility] of 00:00:00 [facility] Hep B, Adol or Pedi 2001 Completed [facility] of Dosage 00:00:00 [facility] MMR 2001 Completed [facility] 00:00:00 [facility] Polio (IPV/OPV) 2001 Completed [facility] 00:00:00 [facility] Pneumococcal 7 2001 Completed [facility] of Conjugate, PCV7 00:00:00 [place] [facility] (Prevnar7) Branch IPV 2001 Completed [facility] 00:00:00 [facility] HIB 4 Dose Schedule 2001 Completed [facility] rs[facility] of 00:00:00 [facility] Hep B, Adol or Pedi 2001 Completed [facility] of Dosage 00:00:00 [facility] MMR 2001 Completed [facility] 00:00:00 [facility] Polio (IPV/OPV) 2001 Completed [facility] 00:00:00 [facility] Pneumococcal 7 2001 Completed [facility] of Conjugate, PCV7 00:00:00 [place] [facility] (Prevnar7) [facility] IPV 2001 Completed [facility] 00:00:00 [facility] HIB 4 Dose Schedule 2001 Completed [facility] of 00:00:00 [facility] Hep B, Adol or Pedi 2001 Completed [facility] of Dosage 00:00:00 [facility] MMR 2001 Completed [facility] 00:00:00 [facility] Polio (IPV/OPV) 2001 Completed [facility] 00:00:00 [facility] Pneumococcal 7 2001 Completed [facility] of Conjugate, PCV7 00:00:00 [place] [facility] (Prevnar7) [facility] IPV 2001 Completed [facility] 00:00:00 [facility] HIB 4 Dose Schedule 2001 Completed [facility] of 00:00:00 [facility] Hep B, Adol or Pedi 2001 Completed [facility] of Dosage 00:00:00 [facility] MMR 2001 Completed [facility] 00:00:00 [facility] Polio (IPV/OPV) 2001 Completed [facility] 00:00:00 [facility] Pneumococcal 7 2001 Completed [facility] of Conjugate, PCV7 00:00:00 [place] [facility] (Prevnar7) [facility] IPV 2001 Completed [facility] 00:00:00 [facility] HIB 4 Dose Schedule 2001 Completed [facility] of 00:00:00 [facility] Hep B, Adol or Pedi 2001 Completed [facility] of Dosage 00:00:00 [facility] MMR 2001 Completed [facility] 00:00:00 [facility] Polio (IPV/OPV) 2001 Completed [facility] 00:00:00 [facility] Pneumococcal 7 2001 Completed [facility] of Conjugate, PCV7 00:00:00 [place] [facility] (Prevnar7) [facility] IPV 2001 Completed [facility] 00:00:00 [facility] HIB 4 Dose Schedule 2001 Completed [facility] of 00:00:00 [facility] Hep B, Adol or Pedi 2001 Completed [facility] of Dosage 00:00:00 [facility] MMR 2001 Completed [facility] 00:00:00 [facility] Polio (IPV/OPV) 2001 Completed [facility] 00:00:00 [facility] Pneumococcal 7 2001 Completed [facility] of Conjugate, PCV7 00:00:00 [place] [facility] (Prevnar7) [facility] IPV 2001 Completed [facility] 00:00:00 [facility] HIB 4 Dose Schedule 2001 Completed [facility] of 00:00:00 [facility] Hep B, Adol or Pedi 2001 Completed [facility] of Dosage 00:00:00 [facility] MMR 2001 Completed [facility] 00:00:00 [facility] Polio (IPV/OPV) 2001 Completed [facility] 00:00:00 [facility] Pneumococcal 7 2001 Completed [facility] Conjugate, PCV7 00:00:00 [place] [facility] (Prevnar7) [facility] IPV 2001 Completed [facility] 00:00:00 [facility] HIB 4 Dose Schedule 2001 Completed [facility] 00:00:00 [facility] Hep B, Adol or Pedi 2001 Completed [facility] Dosage 00:00:00 [facility] MMR 2001 Completed [facility] 00:00:00 [facility] Polio (IPV/OPV) 2001 Completed [facility] 00:00:00 [facility] Pneumococcal 7 2001 Completed [facility] Conjugate, PCV7 00:00:00 [facility] ([facility] IPV 2001 Completed [facility] 00:00:00 [facility] HIB 4 Dose Schedule 2001 Completed [facility] 00:00:00 [facility] Hep B, Adol or Pedi 2001 Completed [facility] Dosage 00:00:00 [facility] MMR 2001 Completed [facility] 00:00:00 [facility] Polio (IPV/OPV) 2001 Completed [facility] 00:00:00 [facility] Pneumococcal 7 2001 Completed [facility] Conjugate, PCV7 00:00:00 [facility] (Pre[facility] IPV 2001 Completed [facility] 00:00:00 [facility] HIB 4 Dose Schedule 2001 Completed [facility] 00:00:00 [facility] Hep B, Adol or Pedi 2001 Completed [facility] Dosage 00:00:00 [facility] MMR 2001 Completed [facility] 00:00:00 [facility] Polio (IPV/OPV) 2001 Completed [facility] 00:00:00 [facility] Pneumococcal 7 2001 Completed [facility] Conjugate, PCV7 00:00:00 [facility] (Pre[facility] IPV 2001 Completed [facility] 00:00:00 [facility] HIB 4 Dose Schedule 2001 Completed [facility] 00:00:00 [facility] Hep B, Adol or Pedi 2001 Completed [facility] Dosage 00:00:00 [facility] MMR 2001 Completed [facility] 00:00:00 [facility] Polio (IPV/OPV) 2001 Completed [facility] 00:00:00 [facility] Pneumococcal 7 2001 Completed [facility] Conjugate, PCV7 00:00:00 [place] [facility] ([facility] IPV 2001 Completed [facility] 00:00:00 [facility] HIB 4 Dose Schedule 2001 Completed [facility] 00:00:00 [facility] Hep B, Adol or Pedi 2001 Completed [facility] Dosage 00:00:00 [facility] MMR 2001 Completed [facility] 00:00:00 [facility] Polio (IPV/OPV) 2001 Completed [facility] 00:00:00 [facility] Pneumococcal 7 2001 Completed [facility] Conjugate, PCV7 00:00:00 [place] [facility] (Prevnar[facility] IPV 2001 Completed [facility] 00:00:00 [facility] HIB 4 Dose Schedule 2001 Completed [facility] 00:00:00 [facility] Hep B, Adol or Pedi 2001 Completed [facility] Dosage 00:00:00 [facility] MMR 2001 Completed [facility] 00:00:00 [facility] Polio (IPV/OPV) 2001 Completed [facility] 00:00:00 [facility] Pneumococcal 7 2001 Completed [facility] Conjugate, PCV7 00:00:00 [facility] (Prevnar[facility] IPV 2001 Completed [facility] 00:00:00 [facility] HIB 4 Dose Schedule 2001 Completed [facility] 00:00:00 [facility] Hep B, Adol or Pedi 2001 Completed [facility] Dosage 00:00:00 [facility] MMR 2001 Completed [facility] 00:00:00 [facility] Polio (IPV/OPV) 2001 Completed [facility] 00:00:00 [facility] Pneumococcal 7 2001 Completed [facility] Conjugate, PCV7 00:00:00 [place] [facility] (Prevnar[facility] IPV 2001 Completed [facility] 00:00:00 [facility] HIB 4 Dose Schedule 2001 Completed [facility] 00:00:00 [facility] Hep B, Adol or Pedi 2001 Completed [facility] Dosage 00:00:00 [facility] MMR 2001 Completed [facility] 00:00:00 [facility] Polio (IPV/OPV) 2001 Completed [facility] 00:00:00 [facility] Pneumococcal 7 2001 Completed [facility] Conjugate, PCV7 00:00:00 [place] [facility] (Prevnar[facility] IPV 2001 Completed [facility] 00:00:00 [facility] HIB 4 Dose Schedule 2001 Completed [facility] 00:00:00 [facility] Hep B, Adol or Pedi 2001 Completed [facility] Dosage 00:00:00 [facility] MMR 2001 Completed [facility] 00:00:00 [facility] Polio (IPV/OPV) 2001 Completed [facility] 00:00:00 [facility] Pneumococcal 7 2001 Completed [facility] Conjugate, PCV7 00:00:00 [place] [facility] (Prevnar[facility] IPV 2001 Completed [facility] 00:00:00 [facility] HIB 4 Dose Schedule 2001 Completed [facility] 00:00:00 [facility] Hep B, Adol or Pedi 2001 Completed [facility] Dosage 00:00:00 [facility] MMR 2001 Completed [facility] 00:00:00 [facility] Polio (IPV/OPV) 2001 Completed [facility] 00:00:00 [facility] Pneumococcal 7 2001 Completed [facility] Conjugate, PCV7 00:00:00 [place] [facility] (Prevnar[facility] HIB 4 Dose Schedule 2001 Completed [facility] 00:00:00 [facility] Hep B, Adol or Pedi 2001 Completed [facility] Dosage 00:00:00 [facility] MMR 2001 Completed [facility] 00:00:00 [facility] Polio (IPV/OPV) 2001 Completed [facility] 00:00:00 [facility] Pneumococcal 7 2001 Completed [facility] Conjugate, PCV7 00:00:00 [place] [facility] (Prevnar7[facility] HIB 4 Dose Schedule 2001 Completed [facility] 00:00:00 [facility] Hep B, Adol or Pedi 2001 Completed [facility] Dosage 00:00:00 [facility] MMR 2001 Completed [facility] 00:00:00 [facility] Polio (IPV/OPV) 2001 Completed [facility] 00:00:00 [facility] Pneumococcal 7 2001 Completed [facility] Conjugate, PCV7 00:00:00 [place] [facility] (Prevnar[facility] HIB 4 Dose Schedule 2001 Completed [facility] 00:00:00 [facility] Hep B, Adol or Pedi 2001 Completed [facility] Dosage 00:00:00 [facility] MMR 2001 Completed [facility] 00:00:00 [facility] Polio (IPV/OPV) 2001 Completed [facility] 00:00:00 [facility] Pneumococcal 7 2001 Completed [facility] Conjugate, PCV7 00:00:00 [place] [facility] (Prevnar7) [facility] HIB 4 Dose Schedule 2001 Completed [facility] 00:00:00 [facility] Pneumococcal 7 2001-05-10 Completed [facility] Conjugate, PCV7 00:00:00 [place] [facility] (Prevnar[facility] DTAP 2001-05-10 Completed [facility] 00:00:00 [facility] HIB 4 Dose Schedule 2001-05-10 Completed [facility] 00:00:00 [facility] Pneumococcal 7 2001-05-10 Completed [facility] Conjugate, PCV7 00:00:00 [place] [facility] (Prevnar7) [facility] DTAP 2001-05-10 Completed [facility] 00:00:00 [facility] HIB 4 Dose Schedule 2001-05-10 Completed [facility] 00:00:00 [facility] Pneumococcal 7 2001-05-10 Completed [facility] Conjugate, PCV7 00:00:00 [place] [facility] (Prevnar7) [facility] DTAP 2001-05-10 Completed [facility] 00:00:00 [facility] HIB 4 Dose Schedule 2001-05-10 Completed [facility] 00:00:00 [facility] Pneumococcal 7 2001-05-10 Completed [facility] Conjugate, PCV7 00:00:00 [place] [facility] (Prevnar7) [facility] DTAP 2001-05-10 Completed [facility] 00:00:00 [facility] HIB 4 Dose Schedule 2001-05-10 Completed [facility] 00:00:00 [facility] Pneumococcal 7 2001-05-10 Completed [facility] Conjugate, PCV7 00:00:00 [place] [facility] (Prevnar7) [facility] DTAP 2001-05-10 Completed [facility] 00:00:00 [facility] HIB 4 Dose Schedule 2001-05-10 Completed [facility] 00:00:00 [facility] Pneumococcal 7 2001-05-10 Completed [facility] Conjugate, PCV7 00:00:00 [place] [facility] (Prevnar7) [facility] DTAP 2001-05-10 Completed [facility] 00:00:00 [facility] HIB 4 Dose Schedule 2001-05-10 Completed [facility] 00:00:00 [facility] Pneumococcal 7 2001-05-10 Completed [facility] Conjugate, PCV7 00:00:00 [place] [facility] (Prevnar7) [facility] DTAP 2001-05-10 Completed [facility] 00:00:00 [facility] HIB 4 Dose Schedule 2001-05-10 Completed [facility] 00:00:00 [facility] Pneumococcal 7 2001-05-10 Completed [facility] Conjugate, PCV7 00:00:00 [place] [facility] (Prevnar7) [facility] DTAP 2001-05-10 Completed [facility] 00:00:00 [facility] HIB 4 Dose Schedule 2001-05-10 Completed [facility] 00:00:00 [facility] Pneumococcal 7 2001-05-10 Completed [facility] Conjugate, PCV7 00:00:00 [place] [facility] (Prevnar7) [facility] DTAP 2001-05-10 Completed [facility] 00:00:00 [facility] HIB 4 Dose Schedule 2001-05-10 Completed [facility] 00:00:00 [facility] Pneumococcal 7 2001-05-10 Completed [facility] Conjugate, PCV7 00:00:00 [place] [facility] (Prevnar7) [facility] DTAP 2001-05-10 Completed [facility] 00:00:00 [facility] HIB 4 Dose Schedule 2001-05-10 Completed [facility] 00:00:00 [facility] Pneumococcal 7 2001-05-10 Completed [facility] Conjugate, PCV7 00:00:00 [place] [facility] (Prevnar7) [facility] DTAP 2001-05-10 Completed [facility] 00:00:00 [facility] HIB 4 Dose Schedule 2001-05-10 Completed [facility] 00:00:00 [facility] Pneumococcal 7 2001-05-10 Completed [facility] Conjugate, PCV7 00:00:00 [place] [facility] (Prevnar7) [facility] DTAP 2001-05-10 Completed [facility] 00:00:00 [facility] HIB 4 Dose Schedule 2001-05-10 Completed [facility] 00:00:00 [facility] Pneumococcal 7 2001-05-10 Completed [facility] Conjugate, PCV7 00:00:00 [place] [facility] (Prevnar7) [facility] DTAP 2001-05-10 Completed [facility] 00:00:00 [facility] HIB 4 Dose Schedule 2001-05-10 Completed [facility] 00:00:00 [facility] Pneumococcal 7 2001-05-10 Completed [facility] Conjugate, PCV7 00:00:00 [place] [facility] (Prevnar7) [facility] DTAP 2001-05-10 Completed [facility] 00:00:00 [facility] HIB 4 Dose Schedule 2001-05-10 Completed [facility] 00:00:00 [facility] Pneumococcal 7 2001-05-10 Completed [facility] Conjugate, PCV7 00:00:00 [place] [facility] (Prevnar7) [facility] DTAP 2001-05-10 Completed [facility] 00:00:00 [facility] HIB 4 Dose Schedule 2001-05-10 Completed [facility] of 00:00:00 [facility] Pneumococcal 7 2001-05-10 Completed [facility] Conjugate, PCV7 00:00:00 [place] [facility] (Prevnar7) [facility] DTAP 2001-05-10 Completed [facility] 00:00:00 [facility] HIB 4 Dose Schedule 2001-05-10 Completed [facility] of 00:00:00 [facility] Pneumococcal 7 2001-05-10 Completed [facility] Conjugate, PCV7 00:00:00 [place] [facility] (Prevnar7) [facility] DTAP 2001-05-10 Completed [facility] 00:00:00 [facility] HIB 4 Dose Schedule 2001-05-10 Completed [facility] 00:00:00 [facility] Pneumococcal 7 2001-05-10 Completed [facility] Conjugate, PCV7 00:00:00 [place] [facility] (Prevnar7) [facility] DTAP 2001-05-10 Completed [facility] 00:00:00 [facility] HIB 4 Dose Schedule 2001-05-10 Completed [facility] 00:00:00 [facility] Pneumococcal 7 2001-05-10 Completed [facility] Conjugate, PCV7 00:00:00 [place] [facility] (Prevnar7) [facility] DTaP, Unspecified 2001-05-10 Completed Univers [facility] Formulation 00:00:00 [facility] Hib-HbOC 2001-05-10 Completed [facility] 00:00:00 [facility] DTAP 2001-05-10 Completed [facility] 00:00:00 [facility] HIB 4 Dose Schedule 2001-05-10 Completed [facility] 00:00:00 [facility] Pneumococcal 7 2001-05-10 Completed [facility] Conjugate, PCV7 00:00:00 [place] [facility] (Prevnar7) [facility] DTaP, Unspecified 2001-05-10 Completed [facility]y [facility] Formulation 00:00:00 [facility] Hib-HbOC 2001-05-10 Completed [facility] 00:00:00 [facility] DTAP 2001-05-10 Completed [facility] 00:00:00 [facility] HIB 4 Dose Schedule 2001-05-10 Completed [facility] of 00:00:00 [facility] Pneumococcal 7 2001-05-10 Completed [facility] Conjugate, PCV7 00:00:00 [place] [facility] (Prevnar7) [facility] DTaP, Unspecified 2001-05-10 Completed [facility] Formulation 00:00:00 [facility] Hib-HbOC 2001-05-10 Completed [facility] 00:00:00 [facility] DTAP 2001-05-10 Completed [facility] 00:00:00 [facility] HIB 4 Dose Schedule 2001-05-10 Completed [facility] of 00:00:00 [facility] Pneumococcal 7 2001-05-10 Completed [facility] Conjugate, PCV7 00:00:00 [place] [facility] (Prevnar7) [facility] DTaP, Unspecified 2001-05-10 Completed [facility] Formulation 00:00:00 [facility] Hib-HbOC 2001-05-10 Completed [facility] 00:00:00 [facility] DTAP 2001-05-10 Completed [facility] 00:00:00 [facility] HIB 4 Dose Schedule 2001-05-10 Completed [facility] of 00:00:00 [facility] Pneumococcal 7 2001-05-10 Completed [facility] Conjugate, PCV7 00:00:00 [place] [facility] (Prevnar7) [facility] DTaP, Unspecified 2001-05-10 Completed [facility] Formulation 00:00:00 [facility] Hib-HbOC 2001-05-10 Completed [facility] 00:00:00 [facility] DTAP 2001-05-10 Completed [facility] 00:00:00 [facility] HIB 4 Dose Schedule 2001-05-10 Completed [facility] of 00:00:00 [facility] Pneumococcal 7 2001-05-10 Completed [facility] of Conjugate, PCV7 00:00:00 [facility] ica (Prevnar7) Branch DTaP, Unspecified 2001-05-10 Completed Univers ity [facility] Formulation 00:00:00 [facility] Hib-HbOC 2001-05-10 Completed [facility] 00:00:00 [facility] DTAP 2001-05-10 Completed [facility] 00:00:00 [facility] HIB 4 Dose Schedule 2001-05-10 Completed [facility] of 00:00:00 [facility] Pneumococcal 7 2001-05-10 Completed [facility] of Conjugate, PCV7 00:00:00 [facility] ical (Prevnar7) Branch DTaP, Unspecified 2001-05-10 Completed [facility] Formulation 00:00:00 [facility] Hib-HbOC 2001-05-10 Completed [facility] 00:00:00 [facility] DTAP 2001-05-10 Completed [facility] 00:00:00 [facility] HIB 4 Dose Schedule 2001-05-10 Completed [facility] of 00:00:00 [facility] Pneumococcal 7 2001-05-10 Completed [facility] of Conjugate, PCV7 00:00:00 [facility] ical (Prevnar7) Branch DTaP, Unspecified 2001-05-10 Completed [facility] Formulation 00:00:00 [facility] Hib-HbOC 2001-05-10 Completed [facility] 00:00:00 [facility] DTAP 2001-05-10 Completed [facility] 00:00:00 [facility] HIB 4 Dose Schedule 2001-05-10 Completed [facility] 00:00:00 [facility] Pneumococcal 7 2001-05-10 Completed [facility] Conjugate, PCV7 00:00:00 [place] [facility] (Prevnar7) [facility] DTaP, Unspecified 2001-05-10 Completed [facility] Formulation 00:00:00 [facility] Hib-HbOC 2001-05-10 Completed [facility] 00:00:00 [facility] DTAP 2001-05-10 Completed [facility] 00:00:00 [facility] HIB 4 Dose Schedule 2001-05-10 Completed [facility] 00:00:00 [facility] Pneumococcal 7 2001-05-10 Completed [facility] Conjugate, PCV7 00:00:00 [place] [facility] (Prevnar7) [facility] DTaP, Unspecified 2001-05-10 Completed [facility] Formulation 00:00:00 [facility] Hib-HbOC 2001-05-10 Completed [facility] 00:00:00 [facility] DTAP 2001-05-10 Completed [facility] 00:00:00 [facility] HIB 4 Dose Schedule 2001-05-10 Completed [facility] of 00:00:00 [facility] Pneumococcal 7 2001-05-10 Completed [facility] Conjugate, PCV7 00:00:00 [place] [facility] (Prevnar7) [facility] DTaP, Unspecified 2001-05-10 Completed [facility] Formulation 00:00:00 [facility] Hib-HbOC 2001-05-10 Completed [facility] 00:00:00 [facility] DTAP 2001-05-10 Completed [facility] 00:00:00 [facility] HIB 4 Dose Schedule 2001-05-10 Completed [facility] 00:00:00 [facility] Pneumococcal 7 2001-05-10 Completed [facility] Conjugate, PCV7 00:00:00 [place] [facility] (Prevnar7) [facility] DTaP, Unspecified 2001-05-10 Completed [facility] Formulation 00:00:00 [facility] Hib-HbOC 2001-05-10 Completed [facility] 00:00:00 [facility] DTAP 2001-05-10 Completed [facility] 00:00:00 [facility] HIB 4 Dose Schedule 2001-05-10 Completed [facility] 00:00:00 [facility] Pneumococcal 7 2001-05-10 Completed [facility] Conjugate, PCV7 00:00:00 [place] [facility] (Prevnar7) [facility] DTaP, Unspecified 2001-05-10 Completed [facility] Formulation 00:00:00 [facility] Hib-HbOC 2001-05-10 Completed [facility] 00:00:00 [facility] DTAP 2001-05-10 Completed [facility] 00:00:00 [facility] HIB 4 Dose Schedule 2001-05-10 Completed [facility] 00:00:00 [facility] Pneumococcal 7 2001-05-10 Completed [facility] Conjugate, PCV7 00:00:00 [place] [facility] (Prevnar7) [facility] DTaP, Unspecified 2001-05-10 Completed [facility] Formulation 00:00:00 [facility] Hib-HbOC 2001-05-10 Completed [facility] 00:00:00 [facility] DTAP 2001-05-10 Completed [facility] 00:00:00 [facility] HIB 4 Dose Schedule 2001-05-10 Completed [facility] 00:00:00 [facility] Pneumococcal 7 2001-05-10 Completed [facility] Conjugate, PCV7 00:00:00 [place] [facility] (Prevnar7) [facility] DTaP, Unspecified 2001-05-10 Completed [facility] Formulation 00:00:00 [facility] Hib-HbOC 2001-05-10 Completed [facility] 00:00:00 [facility] DTAP 2001-05-10 Completed [facility] 00:00:00 [facility] HIB 4 Dose Schedule 2001-05-10 Completed [facility] 00:00:00 [facility] Pneumococcal 7 2001-05-10 Completed [facility] Conjugate, PCV7 00:00:00 [place] [facility] (Prevnar7) [facility] DTaP, Unspecified 2001-05-10 Completed [facility] Formulation 00:00:00 [facility] Hib-HbOC 2001-05-10 Completed [facility] 00:00:00 [facility] DTAP 2001-05-10 Completed [facility] 00:00:00 [facility] HIB 4 Dose Schedule 2001-05-10 Completed [facility] 00:00:00 [facility] Pneumococcal 7 2001-05-10 Completed [facility] Conjugate, PCV7 00:00:00 [place] [facility] (Prevnar7) [facility] DTAP 2001-05-10 Completed [facility] 00:00:00 [facility] HIB 4 Dose Schedule 2001-05-10 Completed [facility] 00:00:00 [facility] Pneumococcal 7 2001-05-10 Completed [facility] Conjugate, PCV7 00:00:00 [place] [facility] (Prevnar7) [facility] DTAP 2001-05-10 Completed [facility] 00:00:00 [facility] HIB 4 Dose Schedule 2001-05-10 Completed [facility] 00:00:00 [facility] Pneumococcal 7 2001-05-10 Completed [facility] Conjugate, PCV7 00:00:00 [place] [facility] (Prevnar7) [facility] DTAP 2001-05-10 Completed [facility] 00:00:00 [facility] HIB 4 Dose Schedule 2001-05-10 Completed [facility] 00:00:00 [facility] Pneumococcal 7 2001-05-10 Completed [facility] Conjugate, PCV7 00:00:00 [place] [facility] (Prevnar7) [facility] DTAP 2001-05-10 Completed [facility] 00:00:00 [facility] HIB 4 Dose Schedule 2001-05-10 Completed [facility] 00:00:00 [facility] Hep B, Adol or Pedi 2001-03-06 Completed [facility] of Dosage 00:00:00 [facility] Polio (IPV/OPV) 2001-03-06 Completed [facility] 00:00:00 [facility] Pneumococcal 7 2001-03-06 Completed [facility] Conjugate, PCV7 00:00:00 [place] [facility] (Prevnar7) [facility] DTAP 2001-03-06 Completed [facility] 00:00:00 [facility] HIB 4 Dose Schedule 2001-03-06 Completed [facility] 00:00:00 [facility] Hep B, Adol or Pedi 2001-03-06 Completed [facility] of Dosage 00:00:00 [facility] Polio (IPV/OPV) 2001-03-06 Completed [facility] 00:00:00 [facility] Pneumococcal 7 2001-03-06 Completed [facility] of Conjugate, PCV7 00:00:00 [place] [facility] (Prevnar7) [facility] DTAP 2001-03-06 Completed [facility] of 00:00:00 [facility] HIB 4 Dose Schedule 2001-03-06 Completed [facility] rsity of 00:00:00 [facility] Hep B, Adol or Pedi 2001-03-06 Completed [facility]ive [facility] of Dosage 00:00:00 [facility] Polio (IPV/OPV) 2001-03-06 Completed [facility] 00:00:00 [facility] Pneumococcal 7 2001-03-06 Completed [facility] Conjugate, PCV7 00:00:00 [place] [facility] (Prevnar7) [facility] DTAP 2001-03-06 Completed [facility] 00:00:00 [facility] HIB 4 Dose Schedule 2001-03-06 Completed [facility] of 00:00:00 [facility] Hep B, Adol or Pedi 2001-03-06 Completed [facility]ive [facility] of Dosage 00:00:00 [facility] Polio (IPV/OPV) 2001-03-06 Completed [facility] 00:00:00 [facility] Pneumococcal 7 2001-03-06 Completed [facility] Conjugate, PCV7 00:00:00 [place] [facility] (Prevnar7) [facility] DTAP 2001-03-06 Completed [facility] 00:00:00 [facility] HIB 4 Dose Schedule 2001-03-06 Completed [facility] of 00:00:00 [facility] Hep B, Adol or Pedi 2001-03-06 Completed [facility]ive [facility] of Dosage 00:00:00 [facility] Polio (IPV/OPV) 2001-03-06 Completed [facility] 00:00:00 [facility] Pneumococcal 7 2001-03-06 Completed [facility] Conjugate, PCV7 00:00:00 [place] [facility] (Prevnar7) [facility] DTAP 2001-03-06 Completed [facility] 00:00:00 [facility] HIB 4 Dose Schedule 2001-03-06 Completed [facility] of 00:00:00 [facility] Hep B, Adol or Pedi 2001-03-06 Completed [facility]ive [facility] of Dosage 00:00:00 [facility] Polio (IPV/OPV) 2001-03-06 Completed [facility] 00:00:00 [facility] Pneumococcal 7 2001-03-06 Completed [facility] Conjugate, PCV7 00:00:00 [place] [facility] (Prevnar7) [facility] DTAP 2001-03-06 Completed [facility] 00:00:00 [facility] HIB 4 Dose Schedule 2001-03-06 Completed [facility] 00:00:00 [facility] Hep B, Adol or Pedi 2001-03-06 Completed [facility] of Dosage 00:00:00 [facility] Polio (IPV/OPV) 2001-03-06 Completed [facility] 00:00:00 [facility] Pneumococcal 7 2001-03-06 Completed [facility] Conjugate, PCV7 00:00:00 [place] [facility] (Prevnar7) [facility] DTAP 2001-03-06 Completed [facility] 00:00:00 [facility] HIB 4 Dose Schedule 2001-03-06 Completed [facility] of 00:00:00 [facility] Hep B, Adol or Pedi 2001-03-06 Completed [facility] of Dosage 00:00:00 [facility] Polio (IPV/OPV) 2001-03-06 Completed [facility] 00:00:00 [facility] Pneumococcal 7 2001-03-06 Completed [facility] Conjugate, PCV7 00:00:00 [place] [facility] (Prevnar7) [facility] DTAP 2001-03-06 Completed [facility] 00:00:00 [facility] HIB 4 Dose Schedule 2001-03-06 Completed [facility] of 00:00:00 [facility] Hep B, Adol or Pedi 2001-03-06 Completed [facility] of Dosage 00:00:00 [facility] Polio (IPV/OPV) 2001-03-06 Completed [facility] 00:00:00 [facility] Pneumococcal 7 2001-03-06 Completed [facility] Conjugate, PCV7 00:00:00 [place] [facility] (Prevnar7) [facility] DTAP 2001-03-06 Completed [facility] 00:00:00 [facility] HIB 4 Dose Schedule 2001-03-06 Completed [facility] of 00:00:00 [facility] Hep B, Adol or Pedi 2001-03-06 Completed [facility]ive [facility] of Dosage 00:00:00 [facility] Polio (IPV/OPV) 2001-03-06 Completed [facility] 00:00:00 [facility] Pneumococcal 7 2001-03-06 Completed [facility] Conjugate, PCV7 00:00:00 [place] [facility] (Prevnar7) [facility] DTAP 2001-03-06 Completed [facility] of 00:00:00 [facility] HIB 4 Dose Schedule 2001-03-06 Completed [facility]ive rs[facility] of 00:00:00 [facility] Hep B, Adol or Pedi 2001-03-06 Completed [facility]ive rs[facility] of Dosage 00:00:00 [facility] Polio (IPV/OPV) 2001-03-06 Completed [facility] 00:00:00 [facility] Pneumococcal 7 2001-03-06 Completed [facility] Conjugate, PCV7 00:00:00 [place] [facility] (Prevnar7) [facility] DTAP 2001-03-06 Completed [facility] of 00:00:00 [facility] HIB 4 Dose Schedule 2001-03-06 Completed [facility] rs[facility] of 00:00:00 [facility] Hep B, Adol or Pedi 2001-03-06 Completed [facility]ive rs[facility] of Dosage 00:00:00 [facility] Polio (IPV/OPV) 2001-03-06 Completed [facility] 00:00:00 [facility] Pneumococcal 7 2001-03-06 Completed [facility] Conjugate, PCV7 00:00:00 [place] [facility] (Prevnar7) [facility] DTAP 2001-03-06 Completed [facility] of 00:00:00 [facility] HIB 4 Dose Schedule 2001-03-06 Completed [facility]ive rs[facility] of 00:00:00 [facility] Hep B, Adol or Pedi 2001-03-06 Completed [facility]ive [facility] of Dosage 00:00:00 [facility] Polio (IPV/OPV) 2001-03-06 Completed [facility] 00:00:00 [facility] Pneumococcal 7 2001-03-06 Completed [facility] Conjugate, PCV7 00:00:00 [place] [facility] (Prevnar7) [facility] DTAP 2001-03-06 Completed [facility] 00:00:00 [facility] HIB 4 Dose Schedule 2001-03-06 Completed [facility]ive rs[facility] of 00:00:00 [facility] Hep B, Adol or Pedi 2001-03-06 Completed [facility]ive rs[facility] of Dosage 00:00:00 [facility] Polio (IPV/OPV) 2001-03-06 Completed [facility] 00:00:00 [facility] Pneumococcal 7 2001-03-06 Completed [facility] Conjugate, PCV7 00:00:00 [place] [facility] (Prevnar7) [facility] DTAP 2001-03-06 Completed [facility] 00:00:00 [facility] HIB 4 Dose Schedule 2001-03-06 Completed [facility] rs[facility] of 00:00:00 [facility] Hep B, Adol or Pedi 2001-03-06 Completed [facility]ive rs[facility] of Dosage 00:00:00 [facility] Polio (IPV/OPV) 2001-03-06 Completed [facility] 00:00:00 [facility] Pneumococcal 7 2001-03-06 Completed [facility] Conjugate, PCV7 00:00:00 [place] [facility] (Prevnar7) [facility] DTAP 2001-03-06 Completed [facility] of 00:00:00 [facility] HIB 4 Dose Schedule 2001-03-06 Completed [facility]ive rs[facility] of 00:00:00 [facility] Hep B, Adol or Pedi 2001-03-06 Completed [facility]ive rs[facility] of Dosage 00:00:00 [facility] Polio (IPV/OPV) 2001-03-06 Completed [facility] 00:00:00 [facility] Pneumococcal 7 2001-03-06 Completed [facility] Conjugate, PCV7 00:00:00 [place] [facility] (Prevnar7) [facility] DTAP 2001-03-06 Completed [facility] 00:00:00 [facility] HIB 4 Dose Schedule 2001-03-06 Completed [facility] of 00:00:00 [facility] Hep B, Adol or Pedi 2001-03-06 Completed [facility]ive rsity of Dosage 00:00:00 [facility] Polio (IPV/OPV) 2001-03-06 Completed [facility] 00:00:00 [facility] Pneumococcal 7 2001-03-06 Completed [facility] of Conjugate, PCV7 00:00:00 [place] [facility] (Prevnar7) [facility] DTAP 2001-03-06 Completed [facility] 00:00:00 [facility] HIB 4 Dose Schedule 2001-03-06 Completed [facility]ive rs[facility] of 00:00:00 [facility] Hep B, Adol or Pedi 2001-03-06 Completed [facility]ive rsity of Dosage 00:00:00 [facility] Polio (IPV/OPV) 2001-03-06 Completed [facility] 00:00:00 [facility] Pneumococcal 7 2001-03-06 Completed [facility] Conjugate, PCV7 00:00:00 [place] [facility] (Prevnar7) [facility] DTAP 2001-03-06 Completed [facility] 00:00:00 [facility] HIB 4 Dose Schedule 2001-03-06 Completed [facility]ive rsity of 00:00:00 [facility] Hep B, Adol or Pedi 2001-03-06 Completed [facility]ive rsity of Dosage 00:00:00 [facility] Polio (IPV/OPV) 2001-03-06 Completed [facility] 00:00:00 [facility] Pneumococcal 7 2001-03-06 Completed [facility] of Conjugate, PCV7 00:00:00 [place] [facility] (Prevnar7) [facility] DTaP, Unspecified 2001-03-06 Completed Univers ity of Formulation 00:00:00 [facility] IPV 2001-03-06 Completed [facility] of 00:00:00 [facility] DTAP 2001-03-06 Completed [facility] of 00:00:00 [facility] HIB 4 Dose Schedule 2001-03-06 Completed [facility]ive rsity of 00:00:00 [facility] Hep B, Adol or Pedi 2001-03-06 Completed [facility]ive rsity of Dosage 00:00:00 [facility] Polio (IPV/OPV) 2001-03-06 Completed [facility] 00:00:00 [facility] Pneumococcal 7 2001-03-06 Completed [facility] Conjugate, PCV7 00:00:00 [place] [facility] (Prevnar7) [facility] DTaP, Unspecified 2001-03-06 Completed Univers ity of Formulation 00:00:00 [facility] IPV 2001-03-06 Completed [facility] of 00:00:00 [facility] DTAP 2001-03-06 Completed [facility] of 00:00:00 [facility] HIB 4 Dose Schedule 2001-03-06 Completed [facility]ive rsity of 00:00:00 [facility] Hep B, Adol or Pedi 2001-03-06 Completed [facility]ive rsity of Dosage 00:00:00 [facility] Polio (IPV/OPV) 2001-03-06 Completed [facility] 00:00:00 [facility] Pneumococcal 7 2001-03-06 Completed [facility] Conjugate, PCV7 00:00:00 [place] [facility] (Prevnar7) [facility] DTaP, Unspecified 2001-03-06 Completed Univers ity of Formulation 00:00:00 [facility] IPV 2001-03-06 Completed [facility] of 00:00:00 [facility] DTAP 2001-03-06 Completed [facility] of 00:00:00 [facility] HIB 4 Dose Schedule 2001-03-06 Completed [facility]ive rsity of 00:00:00 [facility] Hep B, Adol or Pedi 2001-03-06 Completed [facility]ive rsity of Dosage 00:00:00 [facility] Polio (IPV/OPV) 2001-03-06 Completed [facility] 00:00:00 [facility] Pneumococcal 7 2001-03-06 Completed [facility] of Conjugate, PCV7 00:00:00 [facility] ical (Prevnar7) Branch DTaP, Unspecified 2001-03-06 Completed Univers ity of Formulation 00:00:00 [facility] IPV 2001-03-06 Completed University of 00:00:00 [facility] DTAP 2001-03-06 Completed [facility] of 00:00:00 [facility] HIB 4 Dose Schedule 2001-03-06 Completed [facility]ive rsity of 00:00:00 [facility] Hep B, Adol or Pedi 2001-03-06 Completed [facility]ive rsity of Dosage 00:00:00 [facility] Polio (IPV/OPV) 2001-03-06 Completed [facility] 00:00:00 [facility] Pneumococcal 7 2001-03-06 Completed University of Conjugate, PCV7 00:00:00 [facility] ical (Prevnar7) Branch DTaP, Unspecified 2001-03-06 Completed Univers ity of Formulation 00:00:00 [facility] IPV 2001-03-06 Completed [facility] of 00:00:00 [facility] DTAP 2001-03-06 Completed [facility] of 00:00:00 [facility] HIB 4 Dose Schedule 2001-03-06 Completed [facility]ive rsity of 00:00:00 [facility] Hep B, Adol or Pedi 2001-03-06 Completed [facility]ive rsity of Dosage 00:00:00 [facility] Polio (IPV/OPV) 2001-03-06 Completed [facility] 00:00:00 [facility] Pneumococcal 7 2001-03-06 Completed [facility] of Conjugate, PCV7 00:00:00 [facility] ical (Prevnar7) Branch DTaP, Unspecified 2001-03-06 Completed Univers ity of Formulation 00:00:00 [facility] IPV 2001-03-06 Completed [facility] of 00:00:00 [facility] DTAP 2001-03-06 Completed [facility] of 00:00:00 [facility] HIB 4 Dose Schedule 2001-03-06 Completed [facility]ive rsity of 00:00:00 [facility] Hep B, Adol or Pedi 2001-03-06 Completed [facility]ive rsity of Dosage 00:00:00 [facility] Polio (IPV/OPV) 2001-03-06 Completed [facility] 00:00:00 [facility] Pneumococcal 7 2001-03-06 Completed [facility] of Conjugate, PCV7 00:00:00 [place] [facility] (Prevnar7) [facility] DTaP, Unspecified 2001-03-06 Completed [facility] ity of Formulation 00:00:00 [facility] IPV 2001-03-06 Completed University of 00:00:00 [facility] DTAP 2001-03-06 Completed [facility] of 00:00:00 [facility] HIB 4 Dose Schedule 2001-03-06 Completed [facility]ive rsity of 00:00:00 [facility] Hep B, Adol or Pedi 2001-03-06 Completed [facility]ive rsity of Dosage 00:00:00 [facility] Polio (IPV/OPV) 2001-03-06 Completed [facility] 00:00:00 [facility] Pneumococcal 7 2001-03-06 Completed [facility] of Conjugate, PCV7 00:00:00 [place] [facility] (Prevnar7) [facility] DTaP, Unspecified 2001-03-06 Completed [facility] ity of Formulation 00:00:00 [facility] IPV 2001-03-06 Completed [facility] of 00:00:00 [facility] DTAP 2001-03-06 Completed [facility] of 00:00:00 [facility] HIB 4 Dose Schedule 2001-03-06 Completed [facility]ive rsity of 00:00:00 [facility] Hep B, Adol or Pedi 2001-03-06 Completed [facility]ive rsity of Dosage 00:00:00 [facility] Polio (IPV/OPV) 2001-03-06 Completed [facility] 00:00:00 [facility] Pneumococcal 7 2001-03-06 Completed [facility] of Conjugate, PCV7 00:00:00 [place] [facility] (Prevnar7) [facility] DTaP, Unspecified 2001-03-06 Completed [facility]y [facility] Formulation 00:00:00 [facility] IPV 2001-03-06 Completed [facility] of 00:00:00 [facility] DTAP 2001-03-06 Completed [facility] of 00:00:00 [facility] HIB 4 Dose Schedule 2001-03-06 Completed [facility]ive rsity of 00:00:00 [facility] Hep B, Adol or Pedi 2001-03-06 Completed Unive rsity of Dosage 00:00:00 [facility] Polio (IPV/OPV) 2001-03-06 Completed [facility] 00:00:00 [facility] Pneumococcal 7 2001-03-06 Completed [facility] of Conjugate, PCV7 00:00:00 [place] [facility] (Prevnar7) [facility] DTaP, Unspecified 2001-03-06 Completed [facility] it[facility] Formulation 00:00:00 [facility] IPV 2001-03-06 Completed [facility] of 00:00:00 [facility] DTAP 2001-03-06 Completed [facility] of 00:00:00 [facility] HIB 4 Dose Schedule 2001-03-06 Completed [facility]ive rsity of 00:00:00 [facility] Hep B, Adol or Pedi 2001-03-06 Completed [facility]ive rsity of Dosage 00:00:00 [facility] Polio (IPV/OPV) 2001-03-06 Completed [facility] 00:00:00 [facility] Pneumococcal 7 2001-03-06 Completed [facility] of Conjugate, PCV7 00:00:00 [place] [facility] (Prevnar7) [facility] DTaP, Unspecified 2001-03-06 Completed [facility] Formulation 00:00:00 [facility] IPV 2001-03-06 Completed [facility] of 00:00:00 [facility] DTAP 2001-03-06 Completed [facility] of 00:00:00 [facility] HIB 4 Dose Schedule 2001-03-06 Completed [facility]ive rsity of 00:00:00 [facility] Hep B, Adol or Pedi 2001-03-06 Completed [facility]ive rsity of Dosage 00:00:00 [facility] Polio (IPV/OPV) 2001-03-06 Completed [facility] 00:00:00 [facility] Pneumococcal 7 2001-03-06 Completed [facility] of Conjugate, PCV7 00:00:00 [place] [facility] (Prevnar7) [facility] DTaP, Unspecified 2001-03-06 Completed [facility] it[facility] of Formulation 00:00:00 [facility] IPV 2001-03-06 Completed [facility] of 00:00:00 [facility] DTAP 2001-03-06 Completed [facility] of 00:00:00 [facility] HIB 4 Dose Schedule 2001-03-06 Completed [facility]ive rsity of 00:00:00 [facility] Hep B, Adol or Pedi 2001-03-06 Completed [facility]ive rsity of Dosage 00:00:00 [facility] Polio (IPV/OPV) 2001-03-06 Completed [facility] 00:00:00 [facility] Pneumococcal 7 2001-03-06 Completed [facility] of Conjugate, PCV7 00:00:00 [place] [facility] (Prevnar7) [facility] DTaP, Unspecified 2001-03-06 Completed [facility] ity of Formulation 00:00:00 [facility] IPV 2001-03-06 Completed [facility] of 00:00:00 [facility] DTAP 2001-03-06 Completed [facility] 00:00:00 [facility] HIB 4 Dose Schedule 2001-03-06 Completed [facility]ive rsity of 00:00:00 [facility] Hep B, Adol or Pedi 2001-03-06 Completed [facility]ive rsity of Dosage 00:00:00 [facility] Polio (IPV/OPV) 2001-03-06 Completed [facility] 00:00:00 [facility] Pneumococcal 7 2001-03-06 Completed [facility] of Conjugate, PCV7 00:00:00 [place] [facility] (Prevnar7) [facility] DTaP, Unspecified 2001-03-06 Completed [facility] it[facility] Formulation 00:00:00 [facility] IPV 2001-03-06 Completed [facility] of 00:00:00 [facility] DTAP 2001-03-06 Completed [facility] of 00:00:00 [facility] HIB 4 Dose Schedule 2001-03-06 Completed [facility]ive rsity of 00:00:00 [facility] Hep B, Adol or Pedi 2001-03-06 Completed [facility]ive rsity of Dosage 00:00:00 [facility] Polio (IPV/OPV) 2001-03-06 Completed [facility] 00:00:00 [facility] Pneumococcal 7 2001-03-06 Completed [facility] of Conjugate, PCV7 00:00:00 [place] [facility] (Prevnar7) [facility] DTaP, Unspecified 2001-03-06 Completed [facility] it[facility] Formulation 00:00:00 [facility] IPV 2001-03-06 Completed [facility] of 00:00:00 [facility] DTAP 2001-03-06 Completed [facility] of 00:00:00 [facility] HIB 4 Dose Schedule 2001-03-06 Completed [facility]ive rsity of 00:00:00 [facility] Hep B, Adol or Pedi 2001-03-06 Completed [facility]ive rsity of Dosage 00:00:00 [facility] Polio (IPV/OPV) 2001-03-06 Completed [facility] 00:00:00 [facility] Pneumococcal 7 2001-03-06 Completed [facility] of Conjugate, PCV7 00:00:00 [place] [facility] (Prevnar7) [facility] DTaP, Unspecified 2001-03-06 Completed [facility] Formulation 00:00:00 [facility] IPV 2001-03-06 Completed [facility] of 00:00:00 [facility] DTAP 2001-03-06 Completed [facility] of 00:00:00 [facility] HIB 4 Dose Schedule 2001-03-06 Completed [facility]ive rsity of 00:00:00 [facility] Hep B, Adol or Pedi 2001-03-06 Completed [facility]ive rsity of Dosage 00:00:00 [facility] Polio (IPV/OPV) 2001-03-06 Completed [facility] 00:00:00 [facility] Pneumococcal 7 2001-03-06 Completed [facility] of Conjugate, PCV7 00:00:00 [place] [facility] (Prevnar7) [facility] DTAP 2001-03-06 Completed [facility] 00:00:00 [facility] HIB 4 Dose Schedule 2001-03-06 Completed [facility]ive rsity of 00:00:00 [facility] Hep B, Adol or Pedi 2001-03-06 Completed [facility]ive rsity of Dosage 00:00:00 [facility] Polio (IPV/OPV) 2001-03-06 Completed [facility] 00:00:00 [facility] Pneumococcal 7 2001-03-06 Completed [facility] of Conjugate, PCV7 00:00:00 [place] [facility] (Prevnar7) [facility] DTAP 2001-03-06 Completed [facility] 00:00:00 [facility] HIB 4 Dose Schedule 2001-03-06 Completed [facility] rs[facility] of 00:00:00 [facility] Hep B, Adol or Pedi 2001-03-06 Completed [facility]ive rsity of Dosage 00:00:00 [facility] Polio (IPV/OPV) 2001-03-06 Completed [facility] 00:00:00 [facility] Pneumococcal 7 2001-03-06 Completed [facility] of Conjugate, PCV7 00:00:00 [place] [facility] (Prevnar7) [facility] DTAP 2001-03-06 Completed [facility] 00:00:00 [facility] HIB 4 Dose Schedule 2001-03-06 Completed [facility]ive rs[facility] of 00:00:00 [facility] Hep B, Adol or Pedi 2001-03-06 Completed [facility]ive rsity of Dosage 00:00:00 [facility] Polio (IPV/OPV) 2001-03-06 Completed [facility] 00:00:00 [facility] Pneumococcal 7 2001-03-06 Completed [facility] of Conjugate, PCV7 00:00:00 [place] [facility] (Prevnar7) [facility] DTAP 2001-03-06 Completed [facility] 00:00:00 [facility] HIB 4 Dose Schedule 2001-03-06 Completed [facility]ive rsity of 00:00:00 [facility] Polio (IPV/OPV) 2000 Completed [facility] 00:00:00 [facility] Pneumococcal 7 2000 Completed University of Conjugate, PCV7 00:00:00 [place] [facility] (Prevnar7) [facility] DTAP 2000 Completed [facility] 00:00:00 [facility] HIB 4 Dose Schedule 2000 Completed [facility]ive rs[facility] of 00:00:00 [facility] Polio (IPV/OPV) 2000 Completed [facility] 00:00:00 [facility] Pneumococcal 7 2000 Completed [facility] Conjugate, PCV7 00:00:00 [facility] (Prevnar7[facility] DTAP 2000 Completed [facility] 00:00:00 [facility] HIB 4 Dose Schedule 2000 Completed [facility]ive rsity of 00:00:00 [facility] Polio (IPV/OPV) 2000 Completed [facility] 00:00:00 [facility] Pneumococcal 7 2000 Completed [facility] of Conjugate, PCV7 00:00:00 [facility] (Prevnar[facility] DTAP 2000 Completed [facility] 00:00:00 [facility] HIB 4 Dose Schedule 2000 Completed [facility]ive rs[facility] of 00:00:00 [facility] Polio (IPV/OPV) 2000 Completed [facility] 00:00:00 [facility] Pneumococcal 7 2000 Completed [facility] Conjugate, PCV7 00:00:00 [place] [facility] (Pre[facility] DTAP 2000 Completed [facility] 00:00:00 [facility] HIB 4 Dose Schedule 2000 Completed [facility]ive rsity of 00:00:00 [facility] Polio (IPV/OPV) 2000 Completed [facility] 00:00:00 [facility] Pneumococcal 7 2000 Completed [facility] Conjugate, PCV7 00:00:00 [facility] (Pre[facility] DTAP 2000 Completed [facility] 00:00:00 [facility] HIB 4 Dose Schedule 2000 Completed [facility]ive rs[facility] of 00:00:00 [facility] Polio (IPV/OPV) 2000 Completed [facility] 00:00:00 [facility] Pneumococcal 7 2000 Completed [facility] Conjugate, PCV7 00:00:00 [facility] (Prevnar[facility] DTAP 2000 Completed [facility] 00:00:00 [facility] HIB 4 Dose Schedule 2000 Completed [facility]ive rs[facility] of 00:00:00 [facility] Polio (IPV/OPV) 2000 Completed [facility] 00:00:00 [facility] Pneumococcal 7 2000 Completed [facility] Conjugate, PCV7 00:00:00 [facility] (Prevnar[facility] DTAP 2000 Completed [facility] 00:00:00 [facility] HIB 4 Dose Schedule 2000 Completed [facility]ive rs[facility] of 00:00:00 [facility] Polio (IPV/OPV) 2000 Completed [facility] of 00:00:00 [facility] Pneumococcal 7 2000 Completed [facility] Conjugate, PCV7 00:00:00 [facility] (Pre[facility] DTAP 2000 Completed [facility] 00:00:00 [facility] HIB 4 Dose Schedule 2000 Completed [facility]ive rs[facility] of 00:00:00 [facility] Polio (IPV/OPV) 2000 Completed [facility] 00:00:00 [facility] Pneumococcal 7 2000 Completed [facility] Conjugate, PCV7 00:00:00 [place] [facility] (Prevnar[facility] DTAP 2000 Completed [facility] 00:00:00 [facility] HIB 4 Dose Schedule 2000 Completed [facility]ive rsity of 00:00:00 [facility] Polio (IPV/OPV) 2000 Completed [facility] of 00:00:00 [facility] Pneumococcal 7 2000 Completed [facility] Conjugate, PCV7 00:00:00 [place] [facility] (Prevnar[facility] DTAP 2000 Completed [facility] 00:00:00 [facility] HIB 4 Dose Schedule 2000 Completed [facility]ive rs[facility] of 00:00:00 [facility] Polio (IPV/OPV) 2000 Completed [facility] of 00:00:00 [facility] Pneumococcal 7 2000 Completed [facility] of Conjugate, PCV7 00:00:00 [place] [facility] (Prevnar7[facility] DTAP 2000 Completed [facility] 00:00:00 [facility] HIB 4 Dose Schedule 2000 Completed [facility]ive rs[facility] of 00:00:00 [facility] Polio (IPV/OPV) 2000 Completed [facility] of 00:00:00 [facility] Pneumococcal 7 2000 Completed [facility] Conjugate, PCV7 00:00:00 [facility] (Prevnar[facility] DTAP 2000 Completed [facility] 00:00:00 [facility] HIB 4 Dose Schedule 2000 Completed [facility]ive rs[facility] of 00:00:00 [facility] Polio (IPV/OPV) 2000 Completed [facility] of 00:00:00 [facility] Pneumococcal 7 2000 Completed [facility] Conjugate, PCV7 00:00:00 [facility] (Prevnar[facility] DTAP 2000 Completed [facility] 00:00:00 [facility] HIB 4 Dose Schedule 2000 Completed [facility]ive rsity of 00:00:00 [facility] Polio (IPV/OPV) 2000 Completed [facility] of 00:00:00 [facility] Pneumococcal 7 2000 Completed [facility] Conjugate, PCV7 00:00:00 [place] [facility] (Prevnar7[facility] DTAP 2000 Completed [facility] 00:00:00 [facility] HIB 4 Dose Schedule 2000 Completed [facility]ive rsity of 00:00:00 [facility] Polio (IPV/OPV) 2000 Completed [facility] of 00:00:00 [facility] Pneumococcal 7 2000 Completed [facility] Conjugate, PCV7 00:00:00 [place] [facility] (Prevnar7) [facility] DTAP 2000 Completed [facility] 00:00:00 [facility] HIB 4 Dose Schedule 2000 Completed [facility]ive rs[facility] of 00:00:00 [facility] Polio (IPV/OPV) 2000 Completed [facility] of 00:00:00 [facility] Pneumococcal 7 2000 Completed [facility] Conjugate, PCV7 00:00:00 [place] [facility] (Prevnar7[facility] DTAP 2000 Completed [facility] 00:00:00 [facility] HIB 4 Dose Schedule 2000 Completed [facility]ive rsity of 00:00:00 [facility] Polio (IPV/OPV) 2000 Completed [facility] of 00:00:00 [facility] Pneumococcal 7 2000 Completed [facility] Conjugate, PCV7 00:00:00 [place] [facility] (Prevnar7[facility] DTAP 2000 Completed [facility] 00:00:00 [facility] HIB 4 Dose Schedule 2000 Completed [facility]ive rsity of 00:00:00 [facility] Polio (IPV/OPV) 2000 Completed [facility] of 00:00:00 [facility] Pneumococcal 7 2000 Completed [facility] Conjugate, PCV7 00:00:00 [facility] (Prevnar7[facility] DTAP 2000 Completed [facility] 00:00:00 [facility] HIB 4 Dose Schedule 2000 Completed [facility]ive rs[facility] of 00:00:00 [facility] Polio (IPV/OPV) 2000 Completed [facility] of 00:00:00 [facility] Pneumococcal 7 2000 Completed [facility] of Conjugate, PCV7 00:00:00 [place] [facility] (Prevnar7) [facility] DTaP, Unspecified 2000 Completed Univers ity of Formulation 00:00:00 [facility] IPV 2000 Completed [facility] of 00:00:00 [facility] DTAP 2000 Completed [facility] of 00:00:00 [facility] HIB 4 Dose Schedule 2000 Completed [facility]ive rs[facility] of 00:00:00 [facility] Polio (IPV/OPV) 2000 Completed [facility] of 00:00:00 [facility] Pneumococcal 7 2000 Completed [facility] of Conjugate, PCV7 00:00:00 [facility] (Prevnar[facility] DTaP, Unspecified 2000 Completed [facility] ity of Formulation 00:00:00 [facility] IPV 2000 Completed [facility] 00:00:00 [facility] DTAP 2000 Completed [facility] 00:00:00 [facility] HIB 4 Dose Schedule 2000 Completed [facility]ive rsity of 00:00:00 [facility] Polio (IPV/OPV) 2000 Completed [facility] of 00:00:00 [facility] Pneumococcal 7 2000 Completed [facility] Conjugate, PCV7 00:00:00 [facility] (Prevnar7) [facility] DTaP, Unspecified 2000 Completed [facility] ity of Formulation 00:00:00 [facility] IPV 2000 Completed [facility] 00:00:00 [facility] DTAP 2000 Completed [facility] 00:00:00 [facility] HIB 4 Dose Schedule 2000 Completed Unive rsity of 00:00:00 [facility] Polio (IPV/OPV) 2000 Completed [facility] of 00:00:00 [facility] Pneumococcal 7 2000 Completed [facility] Conjugate, PCV7 00:00:00 [facility] (Prevnar7) [facility] DTaP, Unspecified 2000 Completed [facility] ity of Formulation 00:00:00 [facility] IPV 2000 Completed [facility] 00:00:00 [facility] DTAP 2000 Completed [facility] 00:00:00 [facility] HIB 4 Dose Schedule 2000 Completed Unive rsity of 00:00:00 [facility] Polio (IPV/OPV) 2000 Completed [facility] of 00:00:00 [facility] Pneumococcal 7 2000 Completed [facility] Conjugate, PCV7 00:00:00 [facility] (Prevnar7[facility] DTaP, Unspecified 2000 Completed [facility] ity of Formulation 00:00:00 [facility] IPV 2000 Completed [facility] 00:00:00 [facility] DTAP 2000 Completed [facility] 00:00:00 [facility] HIB 4 Dose Schedule 2000 Completed [facility]ive rsity of 00:00:00 [facility] Polio (IPV/OPV) 2000 Completed [facility] of 00:00:00 [facility] Pneumococcal 7 2000 Completed [facility] Conjugate, PCV7 00:00:00 [facility] (Prevnar7) [facility] DTaP, Unspecified 2000 Completed [facility] ity of Formulation 00:00:00 [facility] IPV 2000 Completed [facility] 00:00:00 [facility] DTAP 2000 Completed [facility] 00:00:00 [facility] HIB 4 Dose Schedule 2000 Completed [facility]ive [facility]ity of 00:00:00 [facility] Polio (IPV/OPV) 2000 Completed [facility] of 00:00:00 [facility] Pneumococcal 7 2000 Completed [facility] Conjugate, PCV7 00:00:00 [facility] (Prevnar7) [facility] DTaP, Unspecified 2000 Completed [facility] it[facility] Formulation 00:00:00 [facility] IPV 2000 Completed [facility] 00:00:00 [facility] DTAP 2000 Completed [facility] 00:00:00 [facility] HIB 4 Dose Schedule 2000 Completed [facility]ive [facility] of 00:00:00 [facility] Polio (IPV/OPV) 2000 Completed [facility] 00:00:00 [facility] Pneumococcal 7 2000 Completed [facility] Conjugate, PCV7 00:00:00 [facility] (Prevnar7[facility] DTaP, Unspecified 2000 Completed [facility] it[facility] of Formulation 00:00:00 [facility] IPV 2000 Completed [facility] 00:00:00 [facility] DTAP 2000 Completed [facility] 00:00:00 [facility] HIB 4 Dose Schedule 2000 Completed [facility]ive rs[facility] of 00:00:00 [facility] Polio (IPV/OPV) 2000 Completed [facility] 00:00:00 [facility] Pneumococcal 7 2000 Completed [facility] Conjugate, PCV7 00:00:00 [facility] (Prevnar7[facility] DTaP, Unspecified 2000 Completed [facility] it[facility] Formulation 00:00:00 [facility] IPV 2000 Completed [facility] 00:00:00 [facility] DTAP 2000 Completed [facility] 00:00:00 [facility] HIB 4 Dose Schedule 2000 Completed [facility] of 00:00:00 [facility] Polio (IPV/OPV) 2000 Completed [facility] 00:00:00 [facility] Pneumococcal 7 2000 Completed [facility] Conjugate, PCV7 00:00:00 [facility] (Prevnar7) [facility] DTaP, Unspecified 2000 Completed [facility] it[facility] of Formulation 00:00:00 [facility] IPV 2000 Completed [facility] 00:00:00 [facility] DTAP 2000 Completed [facility] 00:00:00 [facility] HIB 4 Dose Schedule 2000 Completed [facility] of 00:00:00 [facility] Polio (IPV/OPV) 2000 Completed [facility] 00:00:00 [facility] Pneumococcal 7 2000 Completed [facility] Conjugate, PCV7 00:00:00 [facility] (Prevnar7) [facility] DTaP, Unspecified 2000 Completed [facility] it[facility] of Formulation 00:00:00 [facility] IPV 2000 Completed [facility] 00:00:00 [facility] DTAP 2000 Completed [facility] 00:00:00 [facility] HIB 4 Dose Schedule 2000 Completed [facility] of 00:00:00 [facility] Polio (IPV/OPV) 2000 Completed [facility] 00:00:00 [facility] Pneumococcal 7 2000 Completed [facility] Conjugate, PCV7 00:00:00 [facility] (Prevnar7) [facility] DTaP, Unspecified 2000 Completed [facility] it[facility] of Formulation 00:00:00 [facility] IPV 2000 Completed [facility] 00:00:00 [facility] DTAP 2000 Completed [facility] 00:00:00 [facility] HIB 4 Dose Schedule 2000 Completed [facility] of 00:00:00 [facility] Polio (IPV/OPV) 2000 Completed [facility] 00:00:00 [facility] Pneumococcal 7 2000 Completed [facility] Conjugate, PCV7 00:00:00 [place] [facility] (Prevnar[facility]) [facility] DTaP, Unspecified 2000 Completed [facility] ity of Formulation 00:00:00 [facility] IPV 2000 Completed [facility] 00:00:00 [facility] DTAP 2000 Completed [facility] 00:00:00 [facility] HIB 4 Dose Schedule 2000 Completed [facility]ive [facility]ity of 00:00:00 [facility] Polio (IPV/OPV) 2000 Completed [facility] 00:00:00 [facility] Pneumococcal 7 2000 Completed [facility] Conjugate, PCV7 00:00:00 [facility] (Prevnar7) [facility] DTaP, Unspecified 2000 Completed [facility] it[facility] of Formulation 00:00:00 [facility] IPV 2000 Completed [facility] 00:00:00 [facility] DTAP 2000 Completed [facility] 00:00:00 [facility] HIB 4 Dose Schedule 2000 Completed [facility]ive [facility] of 00:00:00 [facility] Polio (IPV/OPV) 2000 Completed [facility] 00:00:00 [facility] Pneumococcal 7 2000 Completed [facility] Conjugate, PCV7 00:00:00 [place] [facility] (Prevnar7) [facility] DTaP, Unspecified 2000 Completed [facility] it[facility] of Formulation 00:00:00 [facility] IPV 2000 Completed [facility] 00:00:00 [facility] DTAP 2000 Completed [facility] 00:00:00 [facility] HIB 4 Dose Schedule 2000 Completed [facility]ive [facility] of 00:00:00 [facility] Polio (IPV/OPV) 2000 Completed [facility] 00:00:00 [facility] Pneumococcal 7 2000 Completed [facility] of Conjugate, PCV7 00:00:00 [facility] (Prevnar7) [facility] DTaP, Unspecified 2000 Completed [facility] it[facility] of Formulation 00:00:00 [facility] IPV 2000 Completed [facility] 00:00:00 [facility] DTAP 2000 Completed [facility] 00:00:00 [facility] HIB 4 Dose Schedule 2000 Completed [facility] of 00:00:00 [facility] Polio (IPV/OPV) 2000 Completed [facility] 00:00:00 [facility] Pneumococcal 7 2000 Completed [facility] of Conjugate, PCV7 00:00:00 [facility] (Prevnar7) [facility] DTAP 2000 Completed [facility] 00:00:00 [facility] HIB 4 Dose Schedule 2000 Completed [facility] of 00:00:00 [facility] Polio (IPV/OPV) 2000 Completed [facility] 00:00:00 [facility] Pneumococcal 7 2000 Completed [facility] Conjugate, PCV7 00:00:00 [facility] (Prevnar7[facility] DTAP 2000 Completed [facility] 00:00:00 [facility] HIB 4 Dose Schedule 2000 Completed [facility] of 00:00:00 [facility] Polio (IPV/OPV) 2000 Completed [facility] 00:00:00 [facility] Pneumococcal 7 2000 Completed [facility] of Conjugate, PCV7 00:00:00 [facility] (Prevnar7[facility] DTAP 2000 Completed [facility] 00:00:00 [facility] HIB 4 Dose Schedule 2000 Completed [facility]ive rsity of 00:00:00 [facility] Polio (IPV/OPV) 2000 Completed [facility] 00:00:00 [facility] Pneumococcal 7 2000 Completed [facility] of Conjugate, PCV7 00:00:00 [place] [facility] (Prevnar7[facility] DTAP 2000 Completed [facility] 00:00:00 [facility] HIB 4 Dose Schedule 2000 Completed [facility]ive rs[facility] of 00:00:00 [facility] DTAP 2000 Completed [facility] 00:00:00 [facility] DTAP 2000 Completed [facility] 00:00:00 [facility] DTAP 2000 Completed [facility] 00:00:00 [facility] DTAP 2000 Completed [facility] 00:00:00 [facility] DTAP 2000 Completed [facility] 00:00:00 [facility] DTAP 2000 Completed [facility] 00:00:00 [facility] DTAP 2000 Completed [facility] 00:00:00 [facility] DTAP 2000 Completed [facility] 00:00:00 [facility] DTAP 2000 Completed [facility] 00:00:00 [facility] DTAP 2000 Completed [facility] 00:00:00 [facility] DTAP 2000 Completed [facility] 00:00:00 [facility] DTAP 2000 Completed [facility] 00:00:00 [facility] DTAP 2000 Completed [facility] 00:00:00 [facility] DTAP 2000 Completed [facility] 00:00:00 [facility] DTAP 2000 Completed [facility] 00:00:00 [facility] DTAP 2000 Completed [facility] 00:00:00 [facility] DTAP 2000 Completed [facility] 00:00:00 [facility] DTAP 2000 Completed [facility] 00:00:00 [facility] DTAP 2000 Completed [facility] 00:00:00 [facility] DTAP 2000 Completed [facility] 00:00:00 [facility] DTAP 2000 Completed [facility] 00:00:00 [facility] DTAP 2000 Completed [facility] 00:00:00 [facility] DTAP 2000 Completed [facility] 00:00:00 [facility] DTAP 2000 Completed [facility] 00:00:00 [facility] DTAP 2000 Completed [facility] 00:00:00 [facility] DTAP 2000 Completed [facility] 00:00:00 [facility] DTAP 2000 Completed [facility] 00:00:00 [facility] DTAP 2000 Completed [facility] 00:00:00 [facility] DTAP 2000 Completed [facility] 00:00:00 [facility] DTAP 2000 Completed [facility] 00:00:00 [facility] DTAP 2000 Completed [facility] 00:00:00 [facility] DTAP 2000 Completed [facility] 00:00:00 [facility] DTAP 2000 Completed [facility] 00:00:00 [facility] DTAP 2000 Completed [facility] 00:00:00 [facility] DTAP 2000 Completed [facility] 00:00:00 [facility] DTAP 2000 Completed [facility] 00:00:00 [facility] DTAP 2000 Completed [facility] 00:00:00 [facility] DTAP 2000 Completed [facility] 00:00:00 [facility] Hep B, Adol or Pedi 2000 Completed Unive rsity of Dosage 00:00:00 [facility] Hep B, Adol or Pedi 2000 Completed Unive rsity of Dosage 00:00:00 [facility] Hep B, Adol or Pedi 2000 Completed [facility]ive [facility]ity of Dosage 00:00:00 [facility] Hep B, Adol or Pedi 2000 Completed [facility]ive [facility]ity of Dosage 00:00:00 [facility] Hep B, Adol or Pedi 2000 Completed [facility]ive [facility] of Dosage 00:00:00 [facility] Hep B, Adol or Pedi 2000 Completed [facility]ive rsity of Dosage 00:00:00 [facility] Hep B, Adol or Pedi 2000 Completed [facility]ive [facility] of Dosage 00:00:00 [facility] Hep B, Adol or Pedi 2000 Completed [facility]ive rsity of Dosage 00:00:00 [facility] Hep B, Adol or Pedi 2000 Completed [facility]ive rsity of Dosage 00:00:00 [facility] Hep B, Adol or Pedi 2000 Completed [facility]ive [facility]ity of Dosage 00:00:00 [facility] Hep B, Adol or Pedi 2000 Completed [facility]ive rsity of Dosage 00:00:00 [facility] Hep B, Adol or Pedi 2000 Completed [facility]ive rsity of Dosage 00:00:00 [facility] Hep B, Adol or Pedi 2000 Completed [facility]ive [facility]ity of Dosage 00:00:00 [facility] Hep B, Adol or Pedi 2000 Completed [facility]ive [facility]ity of Dosage 00:00:00 [facility] Hep B, Adol or Pedi 2000 Completed [facility]ive [facility]ity of Dosage 00:00:00 [facility] Hep B, Adol or Pedi 2000 Completed [facility]ity of Dosage 00:00:00 [facility] Hep B, Adol or Pedi 2000 Completed [facility]ive [facility] of Dosage 00:00:00 [facility] Hep B, Adol or Pedi 2000 Completed [facility]ive [facility] of Dosage 00:00:00 [facility] Hep B, Adol or Pedi 2000 Completed [facility] of Dosage 00:00:00 [facility] Hep B, Adol or Pedi 2000 Completed [facility] of Dosage 00:00:00 [facility] Hep B, Adol or Pedi 2000 Completed [facility]ive [facility] of Dosage 00:00:00 [facility] Hep B, Adol or Pedi 2000 Completed [facility] of Dosage 00:00:00 [facility] Hep B, Adol or Pedi 2000 Completed [facility] of Dosage 00:00:00 [facility] Hep B, Adol or Pedi 2000 Completed [facility] of Dosage 00:00:00 [facility] Hep B, Adol or Pedi 2000 Completed [facility] of Dosage 00:00:00 [facility] Hep B, Adol or Pedi 2000 Completed [facility] of Dosage 00:00:00 [facility] Hep B, Adol or Pedi 2000 Completed [facility] of Dosage 00:00:00 [facility] Hep B, Adol or Pedi 2000 Completed [facility] of Dosage 00:00:00 [facility] Hep B, Adol or Pedi 2000 Completed [facility] of Dosage 00:00:00 [facility] Hep B, Adol or Pedi 2000 Completed [facility] of Dosage 00:00:00 [facility] Hep B, Adol or Pedi 2000 Completed [facility] of Dosage 00:00:00 [facility] Hep B, Adol or Pedi 2000 Completed [facility] of Dosage 00:00:00 [facility] Hep B, Adol or Pedi 2000 Completed [facility] of Dosage 00:00:00 [facility] Hep B, Adol or Pedi 2000 Completed [facility] of Dosage 00:00:00 [facility] Hep B, Adol or Pedi 2000 Completed [facility] of Dosage 00:00:00 [facility] Hep B, Adol or Pedi 2000 Completed [facility] of Dosage 00:00:00 [facility] Hep B, Adol or Pedi 2000 Completed [facility] of Dosage 00:00:00 [facility] Hep B, Adol or Pedi 2000 Completed [facility] of Dosage 00:00:00 [facility] Vital Signs Vital Name Observation Time Observation Value Comments Source Systolic blood 2023-04-03 20:40:00 118 mm[Hg] [facility] pressure [facility] Diastolic blood 2023-04-03 20:40:00 74 mm[Hg] [facility]ive [facility] of pressure [facility] Heart rate 2023-04-03 20:40:00 99 /min [facility] Body temperature 2023-04-03 20:40:00 36.56 Es [facility] Respiratory rate 2023-04-03 20:40:00 20 /min [facility] [place] [facility] Body height 2023-04-03 20:40:00 170.2 cm Universi ty [facility] Body weight 2023-04-03 20:40:00 90.719 [facility] BMI 2023-04-03 20:40:00 31.32 kg/m2 Universi ty [facility] Systolic blood 2023-03-14 18:37:00 132 mm[Hg] [facility] [place] [facility] Diastolic blood 2023-03-14 18:37:00 82 mm[Hg] [facility] [place] [facility] Heart rate 2023-03-14 18:37:00 96 /min Universi ty [facility] Body temperature 2023-03-14 18:37:00 36.78 Es [facility] Respiratory rate 2023-03-14 18:37:00 20 /min [facility] [place] [facility] Body height 2023-03-14 18:37:00 170.2 cm Universi ty [facility] Body weight 2023-03-14 18:37:00 91.717 kg [facility] BMI 2023-03-14 18:37:00 31.67 kg/m2 [facility] [place] [facility] Systolic blood 2022-12-29 18:44:00 135 mm[Hg] [facility] [place] [facility] Diastolic blood 2022-12-29 18:44:00 85 mm[Hg] [facility] [place] [facility] Heart rate 2022-12-29 18:44:00 95 /min [facility] Body temperature 2022-12-29 18:44:00 35.78 Es [facility] Respiratory rate 2022-12-29 18:44:00 18 /min [facility] Body height 2022-12-29 18:44:00 170.2 cm [facility] Body weight 2022-12-29 18:44:00 94.121 kg [facility] BMI 2022-12-29 18:44:00 32.50 kg/m2 [facility] Systolic blood 2022-12-12 15:53:00 121 mm[Hg] [facility] [place] [facility] Diastolic blood 2022-12-12 15:53:00 84 mm[Hg] [facility] [place] [facility] Heart rate 2022-12-12 15:53:00 108 /min [facility] Body temperature 2022-12-12 15:53:00 36.17 Es [facility] Respiratory rate 2022-12-12 15:53:00 18 /min [facility] [place] [facility] Body height 2022-12-12 15:53:00 170.2 cm [facility] Body weight 2022-12-12 15:53:00 93.078 kg [facility] BMI 2022-12-12 15:53:00 32.14 kg/m2 [facility] Systolic blood 2022-09-07 16:30:00 124 mm[Hg] [facility] [place] [facility] Diastolic blood 2022-09-07 16:30:00 85 mm[Hg] [facility] [place] [facility] Respiratory rate 2022-09-07 16:29:00 18 /min [facility] Body height 2022-09-07 16:29:00 170.2 cm [facility] Body weight 2022-09-07 16:29:00 88.225 kg [facility] BMI 2022-09-07 16:29:00 30.46 kg/m2 [facility] Systolic blood 2022-07-27 19:14:00 121 mm[Hg] [facility] [place] [facility] Diastolic blood 2022-07-27 19:14:00 83 mm[Hg] [facility] [place] [facility] Heart rate 2022-07-27 19:14:00 125 /min [facility] Body temperature 2022-07-27 19:14:00 36.33 Es [facility] Respiratory rate 2022-07-27 19:14:00 18 /min [facility] Body weight 2022-07-27 19:14:00 86.365 kg [facility] BMI 2022-07-27 19:14:00 29.82 kg/m2 [facility] Systolic blood 2022-07-14 21:15:00 136 mm[Hg] [facility] [place] [facility] Diastolic blood 2022-07-14 21:15:00 87 mm[Hg] [facility] [place] [facility] Heart rate 2022-07-14 21:15:00 89 /min [facility] Body temperature 2022-07-14 21:15:00 36.17 Es [facility] Respiratory rate 2022-07-14 21:15:00 18 /min [facility] Body weight 2022-07-14 21:15:00 86.818 kg [facility] BMI 2022-07-14 21:15:00 29.98 kg/m2 [facility] Systolic blood 2022-06-14 18:36:00 122 mm[Hg] [facility] [place] [facility] Diastolic blood 2022-06-14 18:36:00 82 mm[Hg] [facility] [place] [facility] Heart rate 2022-06-14 18:36:00 83 /min [facility] [place] [facility] Body temperature 2022-06-14 18:36:00 36.28 Es Univ [facility] of [facility] Respiratory rate 2022-06-14 18:36:00 17 /min Univ [facility] of [facility] Body height 2022-06-14 18:36:00 170.2 cm Universi ty of [facility] Body weight 2022-06-14 18:36:00 86.41 kg Universi ty of [facility] BMI 2022-06-14 18:36:00 29.84 kg/m2 Universi ty of [facility] Systolic blood 2021-11-30 16:05:00 118 mm[Hg] Univer sity of pressure [facility] Diastolic blood 2021-11-30 16:05:00 74 mm[Hg] Unive rsity of [facility] Heart rate 2021-11-30 16:05:00 92 /min Universi ty of [facility] Body temperature 2021-11-30 16:05:00 36.56 Es [facility] Respiratory rate 2021-11-30 16:05:00 18 /min Univ ersity of [facility] Body height 2021-11-30 16:05:00 167.6 cm Universi ty of [facility] Body weight 2021-11-30 16:05:00 85.276 kg Universi ty of [facility] BMI 2021-11-30 16:05:00 30.34 kg/m2 Universi ty of [facility] Procedures Procedure Date / Time Performed Performing Clinician [facility] e POCT TEST 2022-12-12 21:08:00 [facility]ie Reyna [facility] POCT URINALYSIS W/O 2022-07-27 19:19:00 Sallie Reyna [facility] [place] SPECIFIC GRAV[facility] POCT TEST 2022-07-14 21:18:00 Sallie Reyna Uni [facility] CONSENT/REFUSAL FOR 2022-07-14 20:33:51 Doctor Unassigned, No Un [facility] DIAGNOSIS AND Name Medical Branch TREATMENT POCT TEST 2022-06-14 18:38:00 Hailey Ware [facility] DISCLOSURE AND CONSENT 2021-11-30 05:01:00 Doctor Unassigned, No University [facility] MEDICAL & SURGICAL Name Medical Bran h PROCEDURES - FEMALM POCT TEST 2021-11-30 00:00:00 Sandra Wang [facility] Encounters Start End Encounter Admission Attending Care Care Encounter Source Date/Time Date/Time Type Type Clinicians Facility Department ID 2023-04-03 2023-04-03 [facility] [id number] Univers 15:30:00 16:22:30 SALLIE ity o [facility] 2023-04-03 2023-04-03 Office [facility] [id number] Univers 15:30:00 16:22:30 Visit Sallie C PHARMACY INTERN 350.1.13.10 ity of [facility] 4.2.7.2.686 Marcelo as MATERNAL [id number] [facility] & CHILD [address] [place] [address] 2023-03-26 2023-03-26 Telephone [facility] 1.2.840.114 [id number] Univers 00:00:00 00:00:00 Sallie C PHARMACY INTERN 350.1.13.10 ity of REGIONAL 4.2.7.2.686 Marcelo as MATERNAL [id number] [facility] & [address] 2023-03-14 2023-03-14 Outpatient R AXEL [facility] [id number] Univers 13:30:00 14:11:17 SALLIE ity o [facility] 2023-03-14 2023-03-14 Office [facility] [id number] Univers 13:30:00 14:11:17 Visit Sallie C PHARMACY INTERN 350.1.13.10 ity of REGIONAL 4.2.7.2.686 Marcelo as MATERNAL [id number] [facility] & CHILD [address] [place] [address] 2023-01-31 2023-01-31 Telephone [facility] 1.2.840.114 [id number] Univers 00:00:00 00:00:00 Sallie C PHARMACY INTERN 350.1.13.10 ity of REGIONAL 4.2.7.2.686 Marcelo as MATERNAL [id number] [facility] & CHILD [address] [place] [address] 2023-01-18 2023-01-18 Outpatient R AXEL, [facility] [id number] Univers 14:45:00 14:45:00 SALLIE ity o [facility] 2023-01-18 2023-01-18 Outpatient R AKINSITAPE, [facility] [id number] Univers 14:45:00 14:45:00 SALLIE ity o [facility] 2023-01-02 2023-01-02 Telephone [facility] 1.2.840.114 [id number] Univers 00:00:00 00:00:00 Sallie C PHARMACY INTERN 350.1.13.10 ity of [facility] 4.2.7.2.686 Marcelo as MATERNAL [id number] [facility] & [address] 2022-12-29 2022-12-29 Outpatient R AXEL, [facility] [id number] Univers 13:30:00 14:38:20 SALLIE ity o [facility] 2022-12-29 2022-12-29 Office [facility] [id number] Univers 13:30:00 14:38:20 Visit Sallie C PHARMACY INTERN 350.1.13.10 ity of [place] 4.2.7.2.686 Marcelo as MATERNAL [id number] [address] 2022-12-27 2022-12-27 Telephone [facility] 1.2.840.114 [id number] Univers 00:00:00 00:00:00 Sallie C PHARMACY INTERN 350.1.13.10 ity of [facility] 4.2.7.2.686 Marcelo as MATERNAL [id number] [facility] CHILD [address] [place] [address] 2022-12-12 2022-12-12 Outpatient R AKINSITAPE, [facility] [id number] Univers 10:45:00 11:08:14 SALLIE ity o [facility] 2022-12-122022-12-12 [facility] [id number] Univers 10:45:00 11:08:14 Visit Sallie C PHARMACY INTERN 350.1.13.10 ity [facility] 4.2.7.2.686 Marcelo as MATERNAL [id number] [facility] & [address] 2022-12-01 2022-12-01 Outpatient R AXEL, [facility] [id number] Univers 09:15:00 09:15:00 SALLIE ary o [facility] 2022-11-03 2022-11-03 Outpatient R KATHLEEN, [facility] [id number] Univers 13:30:00 13:30:00 SANDRA [facility] 2022-09-14 2022-09-14 Outpatient R [facility] [id number] Univers 13:00:00 13:00:00 [facility] 2022-09-07 2022-09-07 Outpatient R AXEL, [facility] [id number] Univers 10:00:00 11:01:52 SALLIE arcatherine o [facility] 2022-09-07 2022-09-07 Office [facility] 1.2.915.506 [id number] Univers 10:00:00 11:01:52 Visit Sallie Bartholomew PHARMACY INTERN 350.1.13.10 ity [facility] 4.2.7.2.686 Marcelo as MATERNAL [id number] [facility] & [address] 2022-09-07 2022-09-07 Outpatient R JUANCARLOS, [facility] [id number] Univers 10:30:00 10:30:00 CHANTELLE [facility] 2022-09-07 2022-09-07 Outpatient R AXEL, [facility] [id number] Univers 10:00:00 10:00:00 SALLIE ity o [facility] 2022-07-31 2022-07-31 Telephone [facility] 1.2.840.114 [id number] Univers 00:00:00 00:00:00 Sallie C PHARMACY INTERN 350.1.13.10 ity of [facility] 4.2.7.2.686 Marcelo as MATERNAL [id number] [facility] ical & CHILD [address] [place] [address] 2022-07-27 2022-07-27 Outpatient R AXEL [facility] [id number] Univers 12:45:00 13:40:14 SALLIE itcatherine liao [facility] 2022-07-27 2022-07-27 [facility] 1.2.092.350 [id number] Univers 12:45:00 13:40:14 Visit [facility] PHARMACY INTERN 350.1.13.10 ity of [facility] 4.2.7.2.686 Marcelo as MATERNAL [id number] [facility] & [address] 2022-07-27 2022-07-27 Outpatient [facility] [id number] Univers 12:45:00 12:45:00 SALLIE fischer [facility] 2022-07-14 2022-07-14 Outpatient R AXEL [facility] [id number] Univers 14:15:00 15:38:37 SALLIE liao [facility] 2022-07-14 2022-07-14 [facility] 1.2.049.124 [id number] Univers 14:15:00 15:38:37 Visit [facility] PHARMACY INTERN 350.1.13.10 ity of [facility] 4.2.7.2.686 Marcelo as MATERNAL [id number] [facility] & CHILD [address] [place] [address] 2022-07-14 2022-07-14 Orders Doctor COMBS 1.2.840.114 [id number] Univers 00:00:00 00:00:00 Only Unassigned, DOLLY 350.1.13.10 ity of [place] [facility] 4.2.7.2.686 Marcelo as [id number] [address] 2022-06-14 2022-06-14 Outpatient R JEANIE [facility] [id number] Univers 13:30:00 14:41:50 HAILEY liao [facility] 2022-06-14 2022-06-14 Office Jeanie [facility] 1.2.840.114 [id number] Univers 13:30:00 14:41:50 Visit Hailey Weinstein PHARMACY INTERN 350.1.13.10 ity [facility] 4.2.7.2.686 Marcelo as MATERNAL [id number] [facility] & [address] 2022-06-14 2022-06-14 Outpatient [facility] [id number] Univers 10:30:00 10:30:00 NORY fischer o f [facility] 2022-06-10 2022-06-10 Outpatient R [facility] [id number] Univers 10:45:00 10:45:00 [facility] 2022-06-07 2022-06-07 Telephone [facility] [id number] [id number] Univers 00:00:00 00:00:00 Sandra SEXTON 350.1.13.10 ity [facility] [place] [id number] Wa dical [address] 2022-06-06 2022-06-06 [facility] [id number] Univers 13:30:00 13:30:00 SANDRA [facility] 2022-05-31 2022-05-31 Outpatient R [facility] [id number] Univers 13:30:00 13:30:00 SANDRA [facility] 2022-05-29 2022-05-29 Letter [facility] [id number] Univers 00:00:00 00:00:00 (Out) Sandra SALINAS 350.1.13.10 i ty of [place] [id number] [address] 2022-04-21 2022-04-21 Outpatient R [facility] [id number] Univers 13:00:00 13:00:00 NESHA [facility] 2022-04-10 2022-04-10 Outpatient R FELICIANO ROBISON [facility] B [id number] Univers 11:00:00 11:00:00 ALEMTIFFANYSHAFELICIANO CHAIDEZ ity of [facility] 2022-04-07 2022-04-07 Telephone Ad, [facility] 1.2.163.413 [id number] Univers 00:00:00 00:00:00 Sandra SEXTON 350.1.13.10 ity of [facility] 4.2.7.2.[place] [phone] [address] 2022-01-18 2022-01-18 Telephone Ad, [facility] 1.2.364.348 [id number] Univers 00:00:00 00:00:00 Sandra SEXTON 350.1.13.10 ity of [facility] 4.2.7.2.[place] [id number] [address] 2022-01-18 2022-01-18 Telephone Juan M, [facility] [id number] [id number] Univers 00:00:00 00:00:00 Nesha A HEALTH 350.1.13.10 i ty of [facility] 4.2.7.2.686 Marcelo as MIRTHA?BLEA [id number] Wa cristi ELLISON [address] [place] [address] 2022-01-11 2022-01-11 Outpatient R AD, [facility] [id number] Univers 10:30:00 10:30:00 SANDRA ity of [facility] 2021-12-20 2021-12-20 Telephone Ad, [facility] [id number] Univers 00:00:00 00:00:00 Sandra MATON 350.1.13.10 ity of [place].7.2.[place] [id number] [address] 2021-11-30 2021-11-30 Assistance Specialist Lab, Ang - Db [facility] 1.2.840.1 [id number] Univers 14:00:00 14:15:00 Visit Adum, Sandra L HEALTH 350.1.13.10 ity of [facility] 4.2.7.2.686 Marcelo as MIRTHA?BLEA [id number] Wa cristi ELLISON [address] [facility] OFFICE [facility] 2021-11-30 2021-11-30 Outpatient R ADUM, [facility] [id number] Univers 10:30:00 12:03:56 SANDRA fischer [facility] 2021-11-30 2021-11-30 Office Adum, [facility] 1.2.840.114 [id number] Univers 10:30:00 12:03:56 Visit Sandra Narciso SEXTON 350.1.13.10 ity of [place] 4.2.7.2.[place] [phone] Wa cristi VOGT [address] [facility] 2021-11-30 2021-11-30 Orders Doctor GARRET 1.2.840.114 [id number] Univers 00:00:00 00:00:00 Only Unassigned, DOLLY 350.1.13.10 ity of [place] [facility] 4.2.7.2.686 Marcelo as [id number] [address] 2021-11-25 2021-11-25 Outpatient R ADUM, [facility] [id number] Univers 10:30:00 10:30:00 SANDRA fischer [facility] 2021-11-18 2021-11-18 Telephone [facility] [id number] [id number] Univers 00:00:00 00:00:00 Nesha A HEALTH 350.1.13.10 i ty of [facility] 4.2.7.2.686 Marcelo as MIRTHA?BLEA [id number] Wa cristi ELLISON [address] [facility] OFFICE [facility] 2021-11-17 2021-11-17 Telephone Juan [facility] 1.2.717.140 [id number] Univers 00:00:00 00:00:00 Nesha A HEALTH 350.1.13.10 i ty of [facility] 4.2.7.2.686 Marcelo as MIRTHA?BLEA [id number] Wa cristi ELLISON 044 [facility] 2021-11-04 2021-11-04 Assistance Specialist Lab, Alfred - Clarence [facility] 1.2.840.1 14 [id number] Univers 08:30:00 08:45:00 Visit Nesha Gonzalez A HEALTH 350.1.13.10 ity of [facility] 4.2.7.2.686 Marcelo as MIRTHA?BLEA [id number] Wa cristi ELLISON [address] [facility] OFFICE [facility] 2021-11-04 2021-11-04 Outpatient R JUAN M [facility] [id number] Univers 08:30:00 08:30:00 [facility] 2021-11-04 2021-11-04 Outpatient [facility] [id number] Univers 08:30:00 08:30:00 [facility] 2021-11-04 2021-11-04 Case Kathleen [facility] 1.2.840.114 [id number] Univers 00:00:00 00:00:00 Management Sandra SEXTON 350.1.13.10 ity [facility] 4.2.7.2.[place] [id number] Wa cristi VOGT [address] [facility] 2021-11-03 2021-11-03 Office Juan [facility] 1.2.840.114 [id number] Univers 12:30:00 13:20:28 Visit Nesha Weinstein HEALTH 350.1.13.10 i ty of [facility] 4.2.7.2.686 Marcelo as MIRTHA?BLEA [id number] Wa cristi ELLISON 0[address] [facility] OFFICE [facility] 2021-11-03 2021-11-03 Outpatient R [facility] [id number] Univers 12:30:00 13:20:28 [facility] 2021-11-03 2021-11-03 Outpatient R [facility] [id number] Univers 12:30:00 12:30:00 NESHA [facility] 2021-11-03 2021-11-03 Outpatient R [facility] [id number] Univers 12:30:00 12:30:00 [facility] 2021-11-02 2021-11-02 Assistance Specialist 2, Adc Lab [facility] 1.2.840.114 [id number] Univers 11:45:00 12:00:00 Visit Sandra Wang 350.1.13.10 ity of [place] 4[place]2.7.2.[place] [id number] Wa dical NAL [address] [facility] 2021-11-02 2021-11-02 Outpatient R AD, [facility] [id number] Univers 10:00:00 11:18:03 SANDRA fischer [facility] 2021-11-02 2021-11-02 Initial Ad, [facility] 1.2.840.114 [id number] Univers 10:00:00 11:18:03 Sandra Narciso SEXTON 350.1.13.10 ity of Visit [place] 4.2.7.2.[place] [id number] Wa dical NAL [address] [facility] 2021-11-02 2021-11-02 Outpatient R [facility] [id number] Univers 10:00:00 11:18:03 SANDRA fischer [facility] 2021-11-02 2021-11-02 Orders Doctor COMBS 1.2.840.114 [id number] Univers 00:00:00 00:00:00 Only Unassigned, DOLLY 350.1.13.10 ity of [place] [facility] 4.2.7.2.686 Marcelo as [id number] [address] 2021-05-17 2021-05-17 Outpatient R [facility] [id number] Univers 15:30:00 15:30:00 SANDRA fischer [facility] 2021-05-09 2021-05-09 Outpatient R [facility] [id number] Univers 15:15:00 15:15:00 SALLIE fischer o f [facility] 2021-04-06 2021-04-06 Nurse Visit, Ang-Rmchp Nurse [facility] 1.2 .840.114 [id number] Univers 13:03:25 13:32:33 Visit Nory Tolentino PHARMACY INTERN 350.1.13.10 ity of [facility] 4.2.7.2.686 Marcelo as MATERNAL [id number] Med ical & CHILD [address] [place] [address] 2021-04-06 2021-04-06 Outpatient R RANDA [facility] [id number] Univers 13:30:00 13:30:00 RUPALISANGITA fischer o f [facility] 2021-04-06 2021-04-06 Orders Doctor GARRET 1.2.840.114 [id number] Univers 00:00:00 00:00:00 Only Unassigned, DOLLY 350.1.13.10 ity of [place] [facility] 4.2.7.2.686 Marcelo as [id number] [address] 2020-11-02 2020-11-02 Patient [facility] 1.2.840.114 [id number] Univers 00:00:00 00:00:00 Outreach Sunil PRIMARY 350.1.13.10 i ty of [facility] [place]2.7.2.[place] [id number] Wa dical [address] 2020-09-09 2020-09-09 Outpatient R ADUM, [facility] [id number] Univers 15:30:00 15:30:00 SANDRA fischer [facility] 2020-09-06 2020-09-06 Outpatient R AKINSIPE, [facility] [id number] Univers 15:15:00 15:15:00 SALLIE johnson [facility] 2020-08-20 2020-08-20 Office [facility] 1.2.840.114 [id number] Univers 09:41:57 10:11:57 Visit Sandra Sexton 350.1.13.10 ity of [place] 4[place]2.[place].2.[place] Profess[place] [phone] Wa dical nal [address] [facility] 2020-08-20 2020-08-20 Outpatient R ADUM, [facility] [id number] Univers 10:00:00 10:00:00 SANDRA fischer [facility] 2020-08-20 2020-08-20 Orders Doctor COMBS 1.2.840.114 [id number] Univers 00:00:00 00:00:00 Only Unassigned, DOLLY 350.1.13.10 ity of [place] [facility] 4.2.7.2.686 Marcelo as [id number] [address] 2020-08-04 2020-08-04 Outpatient R AKINSIPE, [facility] [id number] Univers 15:00:00 15:00:00 SALLIE johnson [facility] 2020-07-26 2020-07-26 Outpatient R AKINSIPE, [facility] [id number] Univers 15:15:00 15:15:00 SALLIE fischer o elizabeth [facility] 2020-06-07 2020-06-07 Office Axel, [facility] 1.2.303.173 [id number] Univers 15:56:14 16:43:15 Visit Sallie C PHARMACY INTERN 350.1.13.10 ity of [place] 4.2.7.2.686 Marcelo as MATERNAL [id number] [facility] & [address] 2020-06-07 2020-06-07 Outpatient R AKINSIPE, [facility] [id number] Univers 16:00:00 16:00:00 SALLIE johnson [facility] 2020-06-02 2020-06-02 Outpatient R AKINSIPE, [facility] [id number] Univers 15:15:00 15:15:00 SALLIE johnson [facility] 2020-05-28 2020-05-28 Telephone [facility] 1.2.840.114 [id number] Univers 00:00:00 00:00:00 Sallie C PHARMACY INTERN 350.1.13.10 ity of REGIONAL [id number] Marcelo as MATERNAL [phone] [facility] & CHILD [address] [place] [address] 2020-05-10 2020-05-10 Nurse Visit, [facility] Nurse [facility] [id number] Univers 12:48:58 13:30:27 Visit DarwinLatha herbertola C PHARMACY INTERN [id number] ity of REGIONAL [id number] Marcelo as MATERNAL [phone] [facility] & [address] 2020-05-10 2020-05-10 Outpatient R AKINSIPE, [facility] [id number] Univers 13:00:00 13:00:00 SALLIE ity o elizabeth [facility] 2020-05-10 2020-05-10 Telephone [facility] [id number] Univers 00:00:00 00:00:00 Zac N PHARMACY INTERN [id number] it y of REGIONAL [id number] Marcelo as MATERNAL [phone] Med ical & CHILD [address] [place] [address] 2020-05-07 2020-05-07 Telephone [facility] 1.2.840.114 [id number] Univers 00:00:00 00:00:00 Sallie C PHARMACY INTERN [id number] ity of REGIONAL [id number] Marcelo as MATERNAL [phone] Med ical & CHILD [address] [place] [address] 2020-05-06 2020-05-06 Office [facility] [id number] Univers 15:27:30 16:49:53 Visit Sallie Bartholomew PHARMACY INTERN [id number] ity of REGIONAL [id number] Marcelo as MATERNAL [phone] Med ical & CHILD [address] [place] [address] 2020-05-06 2020-05-06 [facility] [id number] Univers 15:45:00 15:45:00 SALLIE johnson [facility] 2020-05-05 2020-05-05 Telephone [facility] 1.2.840.114 [id number] Univers 00:00:00 00:00:00 Zac N PHARMACY INTERN [id number] it y of REGIONAL [id number] Marcelo as MATERNAL [phone] Med ical & CHILD [address] [place] [address] 2020-03-16 2020-03-16 Outpatient Татьяна [facility] [id number] Univers 10:30:00 10:30:00 NORY fischer o f [facility] 2020-03-08 2020-03-08 Telephone [facility] 1.2.840.114 [id number] Univers 00:00:00 00:00:00 Zac N PHARMACY INTERN [id number] it y of REGIONAL [id number] Marcelo as MATERNAL [phone] Med ical & CHILD [address] [place] [address] 2019-12-24 2019-12-24 [facility]phone [facility] [id number] Univers 00:00:00 00:00:00 Roshunda R PHARMACY INTERN [id number] ity of REGIONAL [id number] Marcelo as MATERNAL [phone] [facility] & CHILD [address] [place] [address] 2019-12-17 2019-12-17 Office [facility] 1.2.840.114 [id number] Univers 14:15:00 14:15:00 Visit Roshunda R PHARMACY INTERN [id number] ity of REGIONAL [id number] Marcelo as MATERNAL [phone] [facility] & CHILD [address] [place] [address] 2019-12-17 2019-12-17 Initial [facility] 1.2.840.114 [id number] Univers 13:14:44 13:44:44 Roshunda R PHARMACY INTERN [id number] ity of Visit REGIONAL [id number] Marcelo as MATERNAL [id number] [facility] & CHILD [address] [place] [address] 2019-12-17 2019-12-17 Outpatient [facility] [id number] Univers 13:15:00 13:15:00 NORY fischer o f [facility] 2019-12-17 2019-12-17 Outpatient [facility] [id number] Univers 13:15:00 13:15:00 ROSHUNDA ity o f [facility] 2019-12-17 2019-12-17 [facility] [id number] Univers 00:00:00 00:00:00 Roshunda R PHARMACY INTERN [id number] ity of REGIONAL [id number] Marcelo as MATERNAL [id number] [facility] & CHILD [address] [place] [address] 2019-12-10 2019-12-10 Outpatient R AXEL [facility] [id number] Univers 08:00:00 08:00:00 SALLIE itcatherine o f [facility] 2019-11-27 2019-11-27 Outpatient R [facility] [id number] Univers 13:00:00 13:00:00 GOPALMATTHEW fischer [facility] 2019-11-24 2019-11-24 Telephone [facility] 1.2.840.114 [id number] Univers 00:00:00 00:00:00 Zac Paris Sexton [id number] i [id number] [phone] [address] 2019-10-31 2019-10-31 Outpatient R [facility] [id number] Univers 13:00:00 13:00:00 ZAC fischer [facility] 2019-10-10 2019-10-10 Office [facility] [id number] Univers 13:47:42 14:18:33 Visit Zac Toledo PHARMACY INTERN [id number] it y of [facility] 4.2.7.2.686 Marcelo as MATERNAL [phone] Med ical & CHILD [address] [place] [address] 2019-10-10 2019-10-10 Outpatient R [facility] [id number] Univers 13:15:00 13:15:00 ZAC fischer [facility] 2019-09-25 2019-09-25 Office [facility] 1.2.840.114 [id number] Univers 16:33:30 17:23:34 Visit Shu Sexton 350.1.13.10 [id number] [phone] [address] 2019-09-22 2019-09-22 Telephone Tomasz [facility] 1.2.840.114 [id number] Univers 00:00:00 00:00:00 Gopal Sexton 350.1.13.10 i [id number] [phone] [address] 2019 2019 Telephone Dale [facility] 1.2.840.114 [id number] Univers 00:00:00 00:00:00 Rashi Sexton 350.1.13.10 i [place] [phone] Wa dical nal [address] [facility] 2019-09-13 2019-09-13 Refill Amber Farnsworth [facility] [id number] Univers 00:00:00 00:00:00 Mookie Sexton 350.1.13.10 i [place] [phone] [facility] nal [address] [facility] 2019-09-02 2019-09-02 Assistance Specialist Linda, [facility] Main [facility] [id number] [id number] Univers 12:57:31 13:12:31 Visit Amber Farnsworth 350.1.13.10 ity of [place] [phone] [facility] [address] [facility] 2019-09-02 2019-09-02 Orders Doctor GARRET 1.2.840.114 [id number] Univers 00:00:00 00:00:00 Only Unassigned, DOLLY 350.1.13.10 ity of [place] [facility] 4.2.7.2.686 Marcelo as [phone] [facility] [address] [place] 2019-04-24 2019-04-24 Nurse Nurse, [facility] 1.2.840.114 [id number] Univers 10:08:46 10:30:57 Visit Amber Farnsworth 350.1.13.10 it[place] [phone] [facility] [address] [facility] 2019-04-15 2019-04-15 [facility] Dale [facility] 1.2.840.114 [id number] Univers 09:05:01 23:59:00 Encounter Rashi Sexton 350.1.13.10 it[place] [phone] [facility] [address] [place] 2019-04-15 2019-04-15 Outpatient R RASHI HUNTER [facility] B [id number] Univers 09:05:01 23:59:00 RASHI HUNTER [facility] 2019-04-15 2019-04-15 Assistance Specialist 1, Ad[facility] 1.2.840.114 [id number] [facility] 09:05:18 09:20:18 Visit Rashi Hunter Skylar 350.1.13. 10 it[place].2.[place] [phone] [address] 2019-04-15 2019-04-15 Telephone [facility] 1.2.840.114 [id number] [facility] 00:00:00 00:00:00 Rashi Sexton 350.1.13.10 [id number] [phone] [address] 2019-04-03 2019-04-03 Office [facility] 1.2.840.114 [id number] [facility] 14:06:14 14:32:05 Visit Rashi Sexton 350.1.13.10 [place]2.[place].2.[place] [phone] [address] 2019-04-01 2019-04-01 Refill Doctor [facility] 1.2.840.[id number] [place] [address] 00:00:00 00:00:00 UnassignedSkylar 350.1.13.10 ity [place].2.[place] [phone] [address] 2019-03-20 2019-03-20 Assistance Specialist 1, [facility] [place] 1.2.840.114 [id number] Univers 16:15:08 16:30:08 Visit ShenaalmasRashi 350.1.13. 10 ity of [place].2.7.2.686 [place] [phone] [address] 2019-03-20 2019-03-20 Office [facility] 1.2.840.114 [id number] Univers 14:52:09 15:58:45 Visit Rashi Sexton 350.1.13.10 [place] 4.2.7.2.[place] [phone] Wa dical nal [address] [facility] 2019-03-20 2019-03-20 Orders Doctor GARRET 1.2.840.114 [id number] Univers 00:00:00 00:00:00 Only Unassigned, DOLLY 350.1.13.10 ity of [place] [facility] 4.2.7.2.686 Marcelo as [phone] [address] Results Test Description Test Time Test Comments Results Result Comments Source POCT TEST 2022-12-12 21:08:00 Test Item Value Reference Range Interpretation Comme nts POCT PREG (test code = 1605) Negative On board controls acceptable with C Line (test code = 3574) Yes POCT PREG LOT # (test code = 3575) POCT PREG TEST DATE (test code = 3576) [facility] [id number] 21:08:00 Test Item Value Reference Range Interpretation Comments POCT PREG (test code = 1605) Negative On board controls acceptable with C Yes Line (test code = 3574) POCT PREG LOT # (test code = 3575) POCT PREG TEST DATE (test code = 3576) [facility] URINALYSIS W/O SPECIFIC [id number] 19:19:00 Test Item Value Reference Range Interpretation Comments POCT PH U (test code = 3254) 6 mg/dl 5-8 POCT U LEUK EST (test code = 3+ Negative - Negative 3263) POCT U NIT (test code = 3262) positive Negative - Negative POCT U PROT (test code = 3259) 2+ Negative - Negative POCT U GLU (test code = 3256) negative Negative - Negative POCT U KETONE (test code = 3258) negative Negative - Negative POCT U BLD (test code = 3257) large Negative - Negative [facility] URINALYSIS W/O SPECIFIC [id number] 19:19:00 Test Item Value Reference Range Interpretation Comments POCT PH U (test code = 3254) 6 mg/dl 5-8 POCT U LEUK EST (test code = 3+ Negative - Negative 3263) POCT U NIT (test code = 3262) positive Negative - Negative POCT U PROT (test code = 3259) 2+ Negative - Negative POCT U GLU (test code = 3256) negative Negative - Negative POCT U KETONE (test code = 3258) negative Negative - Negative POCT U BLD (test code = 3257) large Negative - Negative [facility] [id number] 21:18:00 Test Item Value Reference Range Interpretation Comments POCT PREG (test code = 1605) Negative On board controls acceptable with C Yes Line (test code = 3574) POCT PREG LOT # (test code = 3575) POCT PREG TEST DATE (test code = 3576) [facility] [id number] 21:18:00 Test Item Value Reference Range Interpretation Comments POCT PREG (test code = 1605) Negative On board controls acceptable with C Yes Line (test code = 3574) POCT PREG LOT # (test code = 3575) POCT PREG TEST DATE (test code = 3576) [facility] [id number] 18:40:00 Test Item Value Reference Range Interpretation Comments POCT PREG (test code = 1605) Negative On board controls acceptable with C Yes Line (test code = 3574) POCT PREG LOT # (test code = 3575) POCT PREG TEST DATE (test code = 3576) [facility] [id number] 18:40:00 Test Item Value Reference Range Interpretation Comments POCT PREG (test code = 1605) Negative On board controls acceptable with C Yes Line (test code = 3574) POCT PREG LOT # (test code = 3575) POCT PREG TEST DATE (test code = 3576) [facility] [id number] 16:42:00 Test Item Value Reference Range Interpretation Comments POCT PREG (test code = 1605) Negative On board controls acceptable with C Yes Line (test code = 3574) POCT PREG LOT # (test code = 3575) POCT PREG TEST DATE (test code = 3576) [facility] [id number] 16:42:00 Test Item Value Reference Range Interpretation Comments POCT PREG (test code = 1605) Negative On board controls acceptable with C Yes Line (test code = 3574) POCT PREG LOT # (test code = 3575) POCT PREG TEST DATE (test code = 3576) [facility] Notes Date/Time Note Provider Source 2023-03-26 Formatting of this note might be differe nt from the original. Arlene Murillo LVN [facility] 16:00:07-00:00 Patient stated she started h aving brown discharge 1 week before she starts her cycle. Stated her LMP was 01/05-middle of February. Stated she sometimes has irregular cycles that last about 2 weeks at a time. Informed patient could be n ormal to have some spotting before or after cycle. Informed patient can come in for evaluation ,pt has appt on 04/03 and will wait for that appt to address issues. ER warnings given, verbalized understanding. Electronically signed by Arlene Murillo LVN a t 03/26/2023 4:09 PM CDT 2023-03-26 Formatting of this note might be differe nt from the original. Alia Thomas [facility] 12:11:45-00:00 Sienna Jacob is a 22 year old female is requesting a callback. She says that she has been having some bleeding before her cycle is due. Please call. Thank you. Electronically signed by Alia Thomas at 12:13 PM CDT
[2023-04-10 11:08] LABS: Specific Gravity 1.014 (1.005-1.030)
--- NOTE | 2023-04-10 11:24 | EDPHYS ---
Physician Documentation [facility] Name: Sienna Rodriguez Age: 22 yrs Sex: Female : 2000 Arrival Date: 04/10/2023 Time: 09:09 Bed 5 Private MD: ED Physician Mike Hightower HPI: 04/10 11:23 This 22 yrs old Female presents to ER via Ambulatory with complaints of Cold Symptoms, ms3 Diarrhea, Covid Exposure. 11:23 22-year-old female with past medical history of asthma presents for sore throat, ms3 diarrhea, nausea, headache, fever, shaking that began yesterday. Patient denies pain at this time. Patient states she is taken ibuprofen with relief of her symptoms. Patient states she is currently on her menstrual cycle.. 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 - Social history:: Smoking status: Patient reports the use of cigarette tobacco products. ROS: 11:23 Neuro: Negative for headache, weakness, numbness, tingling. ms3 11:23 Constitutional: Positive for body aches, chills. 11:23 ENT: Positive for sore throat. 11:23 Abdomen/GI: Positive for abdominal pain, nausea, vomiting, and diarrhea. 11:23 All other systems are negative. Exam: 11:23 Constitutional: This is a well developed, well nourished patient who is awake, alert, ms3 and in no acute distress. Head/Face: Normocephalic, atraumatic. Neck: Trachea midline, no cervical lymphadenopathy. Supple, full range of motion without nuchal rigidity, or vertebral point tenderness. No Meningismus. Chest/axilla: Normal chest wall appearance and motion. Nontender with no deformity. Cardiovascular: Regular rate and rhythm with a normal S1 and S2. No gallops, murmurs, or rubs. Normal PMI, no JVD. No pulse deficits. Respiratory: Lungs have equal breath sounds bilaterally, clear to auscultation and percussion. No rales, rhonchi or wheezes noted. No increased work of breathing, no retractions or nasal flaring. Abdomen/GI: Soft, non-tender, with normal bowel sounds. No distension or tympany. No guarding or rebound. No evidence of tenderness throughout. Skin: Warm, dry with normal turgor. Normal color with no rashes, no lesions, and no evidence of cellulitis. MS/ Extremity: Pulses equal, no cyanosis. Neurovascular intact. Full, normal range of motion. Vital Signs: 09:22 BP 132 / 82; Pulse 79; Resp 16; Temp 98.6; Pulse Ox 99% on R/A; iw MDM: 09:33 Patient medically screened. ms3 11:23 Differential diagnosis: Nonspecific abd pain, viral gastroenteritis, COVID. Data ms3 reviewed: vital signs, nurses notes, lab test result(s), and as a result, I will discharge patient. Care significantly affected by the following chronic conditions: Asthma. Counseling: I had a detailed discussion with the patient and/or guardian regarding the historical points, exam findings, and any diagnostic results supporting the discharge/admit diagnosis, lab results, the need for outpatient follow up, to return to the emergency department if symptoms worsen or persist or if there are any questions or concerns that arise at home. Special discussion: I discussed with the patient/guardian in detail that at this point there is no indication for admission to the hospital. It is understood, however, that if the symptoms persist or worsen the patient needs to return immediately for re-evaluation. ED course: Discussed labs with patient. Patient to follow-up with primary care physician in 2 to 3 days. Patient understands and agrees with plan. All questions were answered. Return precautions discussed include worsening symptoms, or any other concerns. 04/10 09:25 Order name: SARS-COV-2 RT PCR; Complete Time: 10:56 ms3 04/10 09:35 Order name: Test, Urine; Complete Time: 11:15 ms3 Administered Medications: No medications were administered Disposition Summary: 04/10/23 11:23 Discharge Ordered Location: Home ms3 Condition: Stable ms3 Diagnosis - Chills (without fever) ms3 - Diarrhea, unspecified ms3 - Headache ms3 Followup: ms3 - With: Shamar Lara MD - When: 2 - 3 days - Reason: Recheck today's complaints Discharge Instructions: - Discharge Summary Sheet ms3 - Diarrhea, Adult ms3 - General Headache Without Cause ms3 Forms: - Medication Reconciliation Form ms3 - Thank You Letter ms3 - Antibiotic Education ms3 - Prescription Opioid Use ms3 - Patient Portal Instructions ms3 - Leadership Thank You Letter ms3 Signatures: Dispatcher [employer] Toshia Mensah RN RN iw Sims, Marcus, DO DO ms3 Corrections: (The following items were deleted from the chart) 12:10 12:09 This 22 yrs old Female presents to ER via Ambulatory with complaints of Cold ms3 Symptoms, Diarrhea, Covid Exposure. ms3 12:10 11:23 22-year-old female with past medical history of asthma presents for sore throat, ms3 diarrhea, nausea, headache, fever, shaking. Patient denies pain at this time. Patient states she is taken ibuprofen with relief of her symptoms. Patient states she is currently on her menstrual cycle.. ms3
--- NOTE | 2023-04-10 11:24 | ER ---
Nurse's Notes [facility] Kristan Name: Sienna Rodriguez Age: 22 yrs Sex: Female : 2000 Arrival Date: 04/10/2023 Time: 09:09 Bed 5 Private MD: Diagnosis: Chills (without fever);Diarrhea, unspecified;Headache Presentation: 04/10 09:22 Chief complaint: Patient states: sore throat , stomach cramps , started yesterday, iw fever. Coronavirus screen: Client presents with at least one sign or symptom that may indicate coronavirus-19. Ebola Screen: Patient negative for fever greater than or equal to 101.5 degrees Fahrenheit, and additional compatible Ebola Virus Disease symptoms Patient denies exposure to infectious person. Patient denies travel to an Ebola-affected area in the 21 days before illness onset. No symptoms or risks identified at this time. Initial Sepsis Screen: Does the patient meet any 2 criteria? No. Patient's initial sepsis screen is negative. Does the patient have a suspected source of infection? No. Patient's initial sepsis screen is negative. Risk Assessment: Do you want to hurt yourself or someone else? Patient reports no desire to harm self or others. Onset of symptoms was April 09, 2023. 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 - Social history:: Smoking status: Patient reports the use of cigarette tobacco products. Screenin:38 [facility] ED Fall Risk Assessment (Adult) History of falling in the last 3 months, ap3 including since admission No falls in past 3 months (0 pts). Abuse screen: Denies threats or abuse. Nutritional screening: No deficits noted. Tuberculosis screening: No symptoms or risk factors identified. Assessment: 09:37 General: Appears in no apparent distress. Behavior is calm, cooperative, appropriate ap3 for age. Pain: Denies pain. Neuro: Level of Consciousness is awake, alert, obeys commands, Oriented to person, place, time, situation. Cardiovascular: Patient's skin is warm and dry. Respiratory: Airway is patent Respiratory effort is even, unlabored, Respiratory pattern is regular, symmetrical. GI: Reports diarrhea. Vital Signs: 09:22 BP 132 / 82; Pulse 79; Resp 16; Temp 98.6; Pulse Ox 99% on R/A; iw ED Course: 09:14 Patient arrived in ED. mg5 09:23 Triage completed. iw 09:24 Leelee Valle, TOM is Primary Nurse. ap3 09:24 Mike Hightower DO is Attending Physician. ms3 09:24 Arm band placed on. iw 09:37 SARS-COV-2 RT PCR Sent. ap3 11:01 Test, Urine Sent. ds4 11:23 Shamar Lara MD is Referral Physician. ms3 11:32 Provided Education on: discharge instructions. ap3 11:32 Patient has correct armband on for positive identification. Bed in low position. Call ap3 light in reach. 11:32 No provider procedures requiring assistance completed. Patient did not have IV access ap3 during this emergency room visit. Administered Medications: No medications were administered Medication: 09:38 VIS not applicable for this client. ap3 Outcome: 11:23 Discharge ordered by . ms3 11:32 Discharged to home ambulatory, with family. ap3 11:32 Condition: good 11:32 Discharge instructions given to patient, family, Instructed on discharge instructions, follow up and referral plans. Demonstrated understanding of instructions, follow-up care. 11:32 Patient left the ED. ap3 Signatures: Toshia Samaniego RN RN Sterling Egan ds4 Leelee Valle RN RN ap3 Mike Hightower DO DO mn3 Ervin Mary mg5
[2023-04-10 11:37] VITALS: BP 132/82; TEMP 98.6; O2SAT 99
== END 2023-04-10 11:32 | disposition home or self-care (01) ==
LOC: ER 09:09
DX: R68.83 Chills (without fever) (principal); R19.7 Diarrhea, unspecified; R51.9 Headache, unspecified; Z20.822 Contact with and (suspected) exposure to COVID-19; Z72.0 Tobacco use; Z88.8 Allergy status to other drugs, medicaments and biological substances
CPT/HCPCS: 81025; 87635; 99283

== ENCOUNTER 2024-10-09 22:15 | Emergency (ER) | payer OTHER ==
[2024-10-09] MEDS ORDERED: ONDANSETRON 4 MG/2 ML VIAL ONE (22:25)
[2024-10-09] MEDS ORDERED: NA CHLORIDE 0.9% 1,000 ML ONE (22:25)
[2024-10-09] MEDS ORDERED: MORPHINE 4 MG/ML SYR ONE (22:25)
--- OUTSIDE RECORDS SUMMARY | 2024-10-09 22:27 | XMS REPORT | Continuity of Care Document ---
Author Name Unknown Address [address] [facility] [address] [place] [address] [facility] Address [address] [facility] [address] [place] [address] Care Team Providers Care Vacuum Conditioner Operator Name Role Phone Nesha Trevizo Primary Care Physician + [phone] NESHA MCGOWAN Attending Clinician Unavailable Nesha Trevizo Attending Clinician [phone] RAKAN OCONNOR Attending Clinician Unavailable Rakan Oconnor MD Attending Clinician [phone] Pgy3 Attending Clinician Unavailable ARMANDO BRITO Attending Clinician ARMANDO Mason Attending Clinician Dangelo Choudhary MD Attending Clinician + [phone] HANNAH TORRES Attending Clinician Unavailable HANNAH TORRES Attending Clinician Unavailable Brian PLASENCIA, Hannah Attending Clinician [phone] Pob, [facility] Main Attending Clinician Unavailhermes Blas MD, Yaron Attending Clinician [phone] YARON BLAS Attending Clinician Unavailable CHRISTINE EM Attending Clinician Unavailable Shira PLASENCIA, Dangelo Attending Clinician + [phone] Richy CHILD CARE GROUP LEADER, Karen Attending Clinician [phone] SALLIE REYNA Attending Clinician Unavail able Lab, [facility] Attending Clinician Unavailable [facility] + Mery CHILD CARE GROUP LEADER, Elida Attending Clinician [phone] Unknown, Attending Attending Clinician Unavailab ELIDA Greene Attending Clinician Unavailable Tomer Sotelo MD Attending Clinician [phone] Viki Melendrez CNM Attending Clinician [phone] Pgy2 Attending Clinician Unavailable TOMER SOTELO Attending Clinician Unavail able TOMER SOTELO Attending Clinician Unavail able CHANI ZAPIEN Attending Clinician Unavailable Chani Zapien MD Attending Clinician [phone] Pgy3 Attending Clinician Unavailable Lab, Ang - Db Attending Clinician Unavailable Nesha Trevizo Attending Clinician [phone] Brodie Sal MD Attending Clinician [phone] Rashi Moran MD Attending Clinician +[phone] RASHI MORAN Attending Clinician UnavailVIKI Logan Attending Clinician Unavaila ble Visit, [facility] Nurse Attending Clinician Unava ildottie Doctor Unassigned, [place] Attending Clinician U SUZANNE Mendes Attending Clinician Unavailab Suzanne Maldonado DO Attending Clinician + [phone] SANDRA WANG Attending Clinician Unavailable HAILEY WARE Attending Clinician Unavailab dimple FELIX, Hailey Weinstein Attending Clinician [phone] NORY TOLENTINO Attending Clinician Unavailab FELICIANO Balderas Attending Clinician Unavaila FELICIANO Herrmann Attending Clinician Unavaila Sandra Oswald MD Attending Clinician [phone], [facility] Attending Clinician Unavailable Hammad BONILLA, Nory Vaz Attending Clinician + [phone] Sunil Montoya DO Attending Clinician [phone] Aden BONILLA, Zac Toledo Attending Clinician [phone] GOPAL TOLBERT Attending Clinician Unavailable ZAC ELIZONDO Attending Clinician UnavailShu Nova MD Attending Clinician [phone] Gopal Tolbert PA-C Attending Clinician +[phone] Rashi Baker MD Attending Clinician + [phone] Amber Farnsworth MD Attending Clinician +[phone] Nurse, [facility] Attending Clinician Un available RASHI BAKER Attending Clinician Unavaila RASHI Newton Attending Clinician Unavaila ble 1, [facility] Attending Clinician Unavailable YARON BLAS Admitting Clinician Unavailable RASHI BAKER Admitting Clinician Unavaila ble Payers Payer Name Policy Type Policy Number Effective Date Expirati on Date Source POL[facility] [employer] [id number] 2023 00:00:00 MEDICAID PENDING PENDING 2022 00:00:00 [facility] [id number] 00:00:00 Problems Condition Name Condition Details Condition Category Status Onset Date Resolution Date Last Treatment Date Treating Clinician Comments Source PCOS (polycysti c ovarian syndrome) PCOS (polycysti c ovarian syndrome) Disease Active 11-18 00:00: 00 [facility] Pain in breast Pain in breast Disease Active 12-12 00:00: 00 [facility] Elevated hemoglobin Elevated hemoglobin Disease Active - 00:00: 00 [facility] Anxiety and depression Anxiety and depression Disease Active 11-02 00:00: 00 [facility] Obesity (BMI 30-39.9) Obesity (BMI 30-39.9) Disease Active 08-20 00:00: 00 [facility] Irregular menstrual cycle Irregular menstrual cycle Disease Active 05-06 00:00: 00 [facility] Tobacco use disorder Tobacco use disorder Disease Active 05-06 00:00: 00 [facility] Verruca warts (infectiou s) Verruca warts (infectiou s) Disease Active 08-23 00:00: 00 Overview: Formattin g of this note might be different from the original. 08/22/2019 - s/p excision of a wart on her mons pubis. Pathology confirmed benign verrucous wart. [facility] Female infertilit y associated with anovulatio n Female infertilit y associated with anovulatio n Disease Active 04-18 00:00: 00 Overview: Formattin g of this note might be different from the original. 04/15/19 - day 3 FSH 6.96, E2 4179/10/29 - HSG normal [facility] Dyspareuni a, female Dyspareuni a, female Disease Active 12-02 00:00: 00 Overview: Formattin g of this note might be different from the original. 12/02/18 - Gabapenti n 300 TID started [facility] Chronic female pelvic pain Chronic female pelvic pain Disease Active 12-02 00:00: 00 [facility] Other general counseling and advice for contracept tomás management Other general counseling and advice for contracept tomás management Disease Resolve d 05-06 00:00: 00 2023-10-18 00:00:00 2023-10-18 09:09:02 [facility] Depression , unspecifie d depression type Depression , unspecifie d depression type Disease Resolve d 11-08 00:00: 00 2023-10-18 00:00:00 2023-10-18 09:08:56 [facility] Anxiety disorder, unspecifie d type Anxiety disorder, unspecifie d type Disease Resolve d 2018-0 3-29 00:00: 00 2023-10-18 00:00:00 2023-10-18 09:08:57 [facility] Amenorrhea , secondary Amenorrhea , secondary Disease Resolve d 0 8-08 00:00: 00 2019-07-31 00:00:00 2019-07-31 16:14:44 [facility] Gonococcal infection (acute) of lower genitourin avery tract Gonococcal infection (acute) of lower genitourin avery tract Disease Resolve d 6-25 00:00: 00 2019-07-31 00:00:00 2019-07-31 16:14:44 [facility] Encounter for IUD removal Encounter for IUD removal Disease Resolve d 6 00:00: 00 2019-07-31 00:00:00 2019-07-31 16:14:30 [facility] Presence of intrauteri ne contracept tomás device Presence of intrauteri ne contracept tomás device Disease Resolve d 5-30 00:00: 00 2019-07-31 00:00:00 2019-07-31 16:14:30 [facility] Postcoital bleeding Postcoital bleeding Disease Resolve d 0 4-22 00:00: 00 2019-07-31 00:00:00 2019-07-31 16:14:49 [facility] Chlamydia trachomati s infection of lower genitourin avery sites Chlamydia trachomati s infection of lower genitourin avery sites Disease Resolve d 3-21 00:00: 00 2019-07-31 00:00:00 2019-07-31 16:14:36 [facility] Encounter for counseling regarding contracept ion Encounter for counseling regarding contracept ion Disease Resolve d 0 3-21 00:00: 00 2019-01-09 00:00:00 2019-01-09 11:57:45 [facility] Ruptured membranes, prolonged Ruptured membranes, prolonged Disease Resolve d 0 8-24 00:00: 00 2018-10-31 00:00:00 2018-10-31 15:23:26 [facility] Threatened premature labor Threatened premature labor Disease Resolve d 2018-0 8-14 00:00: 00 2018-10-31 00:00:00 2018-10-31 15:23:25 [facility] Excessive weight gain during in third trimester Excessive weight gain during in third trimester Disease Resolve d 2017-0 7-25 00:00: 00 2018-10-31 00:00:00 2018-10-31 15:23:24 [facility] Supervisio n of high risk in third trimester Supervisio n of high risk in third trimester Disease Resolve d 0 7-12 00:00: 00 2018-10-31 00:00:00 2018-10-31 15:23:20 [facility] Indication for care/inter vention related to labor/deli very, antepartum Indication for care/inter vention related to labor/deli very, antepartum Disease Resolve d 0 7-12 00:00: 00 2018-10-31 00:00:00 2018-10-31 15:23:22 [facility] Primigravi da in third trimester Primigravi da in third trimester Disease Resolve d 7-12 00:00: 00 2018-10-31 00:00:00 2018-10-31 15:23:23 [facility] 37 weeks gestation of 37 weeks gestation of Disease Resolve d 2017-0 8-24 00:00: 00 2018-05-20 00:00:00 2018-05-20 11:39:45 [facility] Liveborn by vaginal delivery Liveborn infant by vaginal delivery Disease Resolve d 0 8-24 00:00: 00 2018-05-20 00:00:00 2018-05-20 11:39:45 [facility] 36 weeks gestation of 36 weeks gestation of Disease Resolve d 0 8-15 00:00: 00 2018-05-20 00:00:00 2018-05-20 11:39:45 [facility] Positive GBS test Positive GBS test Disease Resolve d 2017-0 8-15 00:00: 00 2018-05-20 00:00:00 2018-05-20 11:39:45 [facility] 31 weeks gestation of 31 weeks gestation of Disease Resolve d 2018-0 7-11 00:00: 00 2018-05-20 00:00:00 2018-05-20 11:39:45 [facility] labor in third trimester without delivery labor in third trimester without delivery Disease Resolve d 7-11 00:00: 00 2018-05-20 00:00:00 2018-05-20 11:39:45 [facility] Allergies, Adverse Reactions, Alerts Allergy Name Allergy Type Status Severity Reaction(s) Onset Date Inactive Date Treating Clinician Comments Source Gabapent in Propensi ty to adverse reaction s Active Shortness of Breath 04-03 00:00: 00 [facility] GABAPENT IN DRUG INGREDI Active Anxiety 04-03 00:00: 00 [facility] Family History Family Member Diagnosis Comments Start Date Stop Date Sourc e Natural father Asthma [facility] Maternal grandfather Arthritis [facility] Maternal grandfather Diabetes [facility] Maternal grandfather Hypertension [facility] Maternal grandmother Arthritis [facility] Natural mother Asthma Un[facility] Natural [facility] Hy[facility] Paternal grandfather [facility] Paternal grandmother [facility] Social History Social Habit Start Date Stop Date Quantity Comments Source History of tobacco use Cigarette Smoker [facility] Gender identity [facility] History of Social function 2024-10-01 00:00:00 2024-10-01 00:00:00 [facility] Alcoholic beverage intake 2024-10-01 00:00:00 2024-10-01 00:00:00 Ex-drinker (finding) [facility] Tobacco use and exposure 2023-12-17 00:00:00 2023-12-17 00:00:00 Smokeless tobacco non-user [facility] Alcohol intake 2023-12-04 00:00:00 2023-12-04 00:00:00 Ex-drinker (finding) [facility] Exposure to SARS-CoV-2 (event) 2022-12-19 00:00:00 2022-12-29 13:43:00 Not sure [facility] Alcohol Comment 2021-11-02 00:00:00 2021-11-02 00:00:00 2-3x a week [facility] History SDOH Alcohol Frequency 2020-05-06 00:00:00 2020-05-06 00:00:00 99 [facility] History SDOH Alcohol Std Drinks 2020-05-06 00:00:00 2020-05-06 00:00:00 99 [facility] History SDOH Alcohol Binge 2020-05-06 00:00:00 2020-05-06 00:00:00 99 [facility] Sex assigned at 2000 00:00:00 2000 00:00:00 [facility] Smoking Status Start Date Stop Date Source Ex-smoker 2023-12-17 00:00:00 2023-12-17 00:00:00 [facility] Medications Ordered Medication Name Filled Medication Name Start Date Stop Date Current Medication? Ordering Clinician Indication Dosage Frequency Signature (SIG) Comments Components Source cefUROXime 250 mg tablet 10-01 00:00: 00 10-09 05:59 :00 Yes [id number] 250mg Take 1 tablet by mouth in the morning and 1 tablet in the evening. Do all this for 7 days. [facility] SERTraline 50 mg tablet 2023-08 00:00: 00 11-02 04:59 :00 No [id number] 50mg Take 1 tablet by mouth in the morning for 120 days. [facility] SERTraline 25 mg tablet 2023-08 00:00: 00 Yes [id number] 25mg Take 1 tablet by mouth in the morning. [facility] letrozole 2.5 mg tablet 2023-08 011 00:00: 00 05-29 04:59 :00 No [id number] 7.5mg Take 3 tablets by mouth daily [facility] letrozole 2.5 mg tablet 03-21 00:00: 00 04-06 04:59 :00 No [id number] 7.5mg Take 3 tablets by mouth daily [facility] medroxyPROG ESTERone (PROVERA) 10 mg tablet 02-12 00:00: 00 Yes [id number] 10mg Take 1 tablet by mouth in the morning. [facility] letrozole 2.5 mg tablet 02-12 00:00: 00 02-18 04:59 :00 No [id number] 7.5mg Take 3 tablets by mouth daily [facility] bromphenira mine-pseudo ephedrine-D M (BROMFED DM) 2-30-10 mg/5 mL syrup 01-07 00:00: 00 01-18 04:59 :00 No [id number] 10mL Take 10 mL by mouth 4 (four) times daily for 10 days. [facility] Guaifenesin (MUCINEX) 1,200 mg tablet 01-07 00:00: 00 01-15 04:59 :00 No [id number] 1200mg Take 1 tablet by mouth in the morning and 1 tablet in the evening. Do all this for 7 days. [facility] medroxyPROG ESTERone (PROVERA) 10 mg tablet 12-30 00:00: 00 Yes [id number] 10mg Take 1 tablet by mouth in the morning. [facility] letrozole 2.5 mg tablet 12-30 00:00: 00 01-05 04:59 :00 No [id number] 5mg Take 2 tablets by mouth daily [facility] iopamidol (ISOVUE 300-100 mL) injection 50 mL 12-13 18:15: 00 12-13 17:25 :00 No [id number] 50mL 50 mL, Cervix, ONCE, 1 dose, On Sun12/14/23 at 1315, Routine [facility] galcanezuma b-gnlm prefilled (EMGALITY) subcutaneou s injection 12-06 00:00: 00 Yes [id number] 240mg inject 240 mg under the skin once every month. [facility] topiramate 25 mg tablet 12-06 00:00: 00 12-24 00:00 :00 No [id number] 25mg Take 1 tablet by mouth in the morning and 1 tablet in the evening. Do all this for 335 days. [facility] PROGESTERON E MICRONIZED ORAL 11-29 13:34: 26 12-03 00:00 :00 No Take by mouth. [facility] medroxyPROG ESTERone (PROVERA) 10 mg tablet 11-18 00:00: 00 11-29 04:59 :00 No [id number] 10mg Take 1 tablet by mouth in the morning for 10 days. [facility] letrozole 2.5 mg tablet 11-18 00:00: 00 11-24 04:59 :00 No [id number] 2.5mg Take 1 tablet by mouth daily [facility] No contrast administere d 11-06 17:30: 00 11-06 16:40 :00 No [id number] Intravenou s, ONCE, 1 dose, On Sun11/07/23 at 1230, Routine [facility] medroxyPROG ESTERone (PROVERA) 10 mg tablet 10-16 00:00: 00 10-27 04:59 :00 No [id number] 10mg Take 1 tablet by mouth in the morning for 10 days. [facility] Guaifenesin (MUCINEX) 1,200 mg tablet 10-09 00:00: 00 10-16 05:59 :00 No [id number] 1200mg Take 1 tablet by mouth in the morning and 1 tablet in the evening. Do all this for 7 days. [facility] cetirizine (ZYRTEC) 10 mg tablet 10-09 00:00: 00 10-16 05:59 :00 No [id number] 10mg Take 1 tablet by mouth in the morning for 7 days. [facility] predniSONE 20 mg tablet 10-09 00:00: 00 10-14 05:59 :00 No [id number] 40mg Take 2 tablets by mouth in the morning for 5 days. [facility] fluticasone propionate 50 mcg/actuati on nasal spray 2-27 00:00: 00 10-14 05:59 :00 No [id number] 2{spray } Use 2 Sprays in each nostril in the morning for 5 days. [facility] NaCl 0.9% (NS) bolus infusion 1,000 mL 04-12 00:45: 00 04-12 01:19 :00 No 1000mL at 999 mL/hr, 1,000 mL, IV Infusion, ONCE, 1 dose, On Sun04/11/23 at 1945[facility]uf [facility] (REGLAN) injection 10 mg 04-12 00:00: 00 04-12 00:14 :00 No 10mg 10 mg, Slow IV Push, ONCE, 1 dose, On Sun04/11/23 at 1900, [facility] metoclopram yusuf HCl 10 mg tablet 04-11 00:00: 00 10-17 00:00 :00 No [id number] 10mg Take 1 tablet by mouth every 6 (six) hours as needed for Nausea and Vomiting (N/V). [facility] metroNIDAZO LE 500 mg tablet 01-02 00:00: 00 03-14 00:00 :00 No [id number] 500mg Take 1 tablet by mouth in the morning and 1 tablet in the evening. [facility] fluconazole (DIFLUCAN) 150 mg tablet 01-02 00:00: 00 01-03 04:59 :00 No [id number] 150mg Take 1 tablet by mouth once now for 1 dose. [facility] norgestimat e-ethinyl estradioL (ORTHO TRI-CYCLEN LO, 28,) 0.18/0.215/ 0.25 mg-25 mcg tablet - 00:00: 00 03-14 00:00 :00 No [id number] 1{tbl} Take 1 tablet by mouth in the morning. [facility] Nitrofurant oin&Nit. Macrocryst (MACROBID) 100 mg capsule 2021-08 2-15 00:00: 00 03-14 00:00 :00 No [id number] 100mg Take 1 capsule by mouth in the morning and 1 capsule in the evening. [facility] buPROPion SR (WELLBUTRIN SR) 150 mg SR tablet 2021-08 00:00: 00 03-14 00:00 :00 No [id number] 150mg Take 1 tablet by mouth in the morning and 1 tablet in the evening. [facility] medroxyPROG ESTERone (DEPO-PROVE RA) injection 150 mg 2021-08 19:45: 00 08-08 20:44 :00 No [id number] 150mg [facility] levonorgest reL (MIRENA) IUD 1 Device 11-30 22:00: 00 11-30 20:50 :00 No [id number] 1{devic e} [facility] metroNIDAZO LE 500 mg tablet 11-04 00:00: 00 11-30 00:00 :00 No [id number] 500mg Take 1 tablet by mouth every 12 (twelve) hours. [facility] loratadine 10 mg tablet 11-03 00:00: 00 03-14 00:00 :00 No [id number] 10mg Take 1 tablet by mouth daily. [facility] benzonatate (TESSALON PERLES) 100 mg capsule 11-03 00:00: 00 03-14 00:00 :00 No [id number] 100mg Take 1 capsule by mouth every 8 (eight) hours as needed for Cough. [facility] Immunizations Ordered Immunization Name Filled Immunization Name Date Status Comments Source SARS-COV-2 COVID-19 VACCINE - (MODERNA) 2021-05-07 00:00:00 Completed [facility] SARS-COV-2 COVID-19 VACCINE - (MODERNA) 2021-05-07 00:00:00 Completed [facility] SARS-COV-2 COVID-19 VACCINE - (MODERNA) 2021-05-07 00:00:00 Completed [facility] SARS-COV-2 COVID-19 VACCINE - (MODERNA) 2021-05-07 00:00:00 Completed [facility] SARS-COV-2 COVID-19 VACCINE - (MODERNA) 2021-05-07 00:00:00 Completed [facility] SARS-COV-2 COVID-19 VACCINE - (MODERNA) 2021-05-07 00:00:00 Completed [facility] SARS-COV-2 COVID-19 VACCINE - (MODERNA) 2021-05-07 00:00:00 Completed [facility] SARS-COV-2 COVID-19 VACCINE - (MODERNA) 2021-05-07 00:00:00 Completed [facility] SARS-COV-2 COVID-19 VACCINE - (MODERNA) 2021-05-07 00:00:00 Completed [facility] SARS-COV-2 COVID-19 VACCINE - (MODERNA) 2021-05-07 00:00:00 Completed [facility] SARS-COV-2 COVID-19 VACCINE - (MODERNA) 2021-05-07 00:00:00 Completed [facility] SARS-COV-2 COVID-19 VACCINE - (MODERNA) 2021-05-07 00:00:00 Completed [facility] SARS-COV-2 COVID-19 PFIZER VACCINE 2021-05-04 00:00:00 Completed [facility] SARS-COV-2 COVID-19 PFIZER VACCINE 2021-05-04 00:00:00 Completed [facility] SARS-COV-2 COVID-19 PFIZER VACCINE 2021-05-04 00:00:00 Completed [facility] SARS-COV-2 COVID-19 PFIZER VACCINE 2021-05-04 00:00:00 Completed [facility] SARS-COV-2 COVID-19 PFIZER VACCINE 2021-05-04 00:00:00 Completed [facility] SARS-COV-2 COVID-19 PFIZER VACCINE 2021-05-04 00:00:00 Completed [facility] SARS-COV-2 COVID-19 PFIZER VACCINE 2021-05-04 00:00:00 Completed [facility] SARS-COV-2 COVID-19 PFIZER VACCINE 2021-05-04 00:00:00 Completed [facility] SARS-COV-2 COVID-19 PFIZER VACCINE 2021-05-04 00:00:00 Completed [facility] SARS-COV-2 COVID-19 PFIZER VACCINE 2021-05-04 00:00:00 Completed [facility] SARS-COV-2 COVID-19 PFIZER VACCINE 2021-05-04 00:00:00 Completed [facility] SARS-COV-2 COVID-19 PFIZER VACCINE 2021-05-04 00:00:00 Completed [facility] SARS-COV-2 COVID-19 PFIZER VACCINE 2021-05-04 00:00:00 Completed [facility] SARS-COV-2 COVID-19 PFIZER VACCINE 2021-05-04 00:00:00 Completed [facility] SARS-COV-2 COVID-19 PFIZER VACCINE 2021-05-04 00:00:00 Completed [facility] SARS-COV-2 COVID-19 PFIZER VACCINE 2021-05-04 00:00:00 Completed [facility] SARS-COV-2 COVID-19 PFIZER VACCINE 2021-05-04 00:00:00 Completed [facility] SARS-COV-2 COVID-19 PFIZER VACCINE 2021-05-04 00:00:00 Completed [facility] SARS-COV-2 COVID-19 PFIZER VACCINE 2021-05-04 00:00:00 Completed [facility] SARS-COV-2 COVID-19 PFIZER VACCINE 2021-05-04 00:00:00 Completed [facility] SARS-COV-2 COVID-19 PFIZER VACCINE 2021-05-04 00:00:00 Completed SARS-COV-2 COVID-19 PFIZER VACCINE 2021-05-04 00:00:00 Completed SARS-COV-2 COVID-19 PFIZER VACCINE 2021-05-04 00:00:00 Completed [facility] SARS-COV-2 COVID-19 PFIZER VACCINE 2021-05-04 00:00:00 Completed [facility] SARS-COV-2 COVID-19 PFIZER VACCINE 2021-05-04 00:00:00 Completed [facility] SARS-COV-2 COVID-19 PFIZER VACCINE 2021-05-04 00:00:00 Completed [facility] SARS-COV-2 COVID-19 PFIZER VACCINE 2021-04-13 00:00:00 Completed [facility] SARS-COV-2 COVID-19 PFIZER VACCINE 2021-04-13 00:00:00 Completed [facility] SARS-COV-2 COVID-19 PFIZER VACCINE 2021-04-13 00:00:00 Completed [facility] SARS-COV-2 COVID-19 PFIZER VACCINE 2021-04-13 00:00:00 Completed [facility] SARS-COV-2 COVID-19 PFIZER VACCINE 2021-04-13 00:00:00 Completed [facility] SARS-COV-2 COVID-19 PFIZER VACCINE 2021-04-13 00:00:00 Completed [facility] SARS-COV-2 COVID-19 PFIZER VACCINE 2021-04-13 00:00:00 Completed [facility] SARS-COV-2 COVID-19 PFIZER VACCINE 2021-04-13 00:00:00 Completed SARS-COV-2 COVID-19 PFIZER VACCINE 2021-04-13 00:00:00 Completed SARS-COV-2 COVID-19 PFIZER VACCINE 2021-04-13 00:00:00 Completed [facility] SARS-COV-2 COVID-19 PFIZER VACCINE 2021-04-13 00:00:00 Completed [facility] SARS-COV-2 COVID-19 PFIZER VACCINE 2021-04-13 00:00:00 Completed [facility] SARS-COV-2 COVID-19 PFIZER VACCINE 2021-04-13 00:00:00 Completed [facility] SARS-COV-2 COVID-19 PFIZER VACCINE 2021-04-13 00:00:00 Completed [facility] SARS-COV-2 COVID-19 PFIZER VACCINE 2021-04-13 00:00:00 Completed [facility] SARS-COV-2 COVID-19 PFIZER VACCINE 2021-04-13 00:00:00 Completed [facility] SARS-COV-2 COVID-19 PFIZER VACCINE 2021-04-13 00:00:00 Completed [facility] SARS-COV-2 COVID-19 PFIZER VACCINE 2021-04-13 00:00:00 Completed [facility] SARS-COV-2 COVID-19 PFIZER VACCINE 2021-04-13 00:00:00 Completed [facility] SARS-COV-2 COVID-19 PFIZER VACCINE 2021-04-13 00:00:00 Completed [facility] SARS-COV-2 COVID-19 PFIZER VACCINE 2021-04-13 00:00:00 Completed [facility] SARS-COV-2 COVID-19 PFIZER VACCINE 2021-04-13 00:00:00 Completed [facility] SARS-COV-2 COVID-19 PFIZER VACCINE 2021-04-13 00:00:00 Completed [facility] SARS-COV-2 COVID-19 PFIZER VACCINE 2021-04-13 00:00:00 Completed [facility] SARS-COV-2 COVID-19 PFIZER VACCINE 2021-04-13 00:00:00 Completed [facility] SARS-COV-2 COVID-19 PFIZER VACCINE 2021-04-13 00:00:00 Completed [facility] SARS-COV-2 COVID-19 VACCINE - (MODERNA) 2021-04-09 00:00:00 Completed [facility] SARS-COV-2 COVID-19 VACCINE - (MODERNA) 2021-04-09 00:00:00 Completed [facility] SARS-COV-2 COVID-19 VACCINE - (MODERNA) 2021-04-09 00:00:00 Completed [facility] SARS-COV-2 COVID-19 VACCINE - (MODERNA) 2021-04-09 00:00:00 Completed [facility] SARS-COV-2 COVID-19 VACCINE - (MODERNA) 2021-04-09 00:00:00 Completed [facility] SARS-COV-2 COVID-19 VACCINE - (MODERNA) 2021-04-09 00:00:00 Completed [facility] SARS-COV-2 COVID-19 VACCINE - (MODERNA) 2021-04-09 00:00:00 Completed [facility] SARS-COV-2 COVID-19 VACCINE - (MODERNA) 2021-04-09 00:00:00 Completed [facility] SARS-COV-2 COVID-19 VACCINE - (MODERNA) 2021-04-09 00:00:00 Completed [facility] SARS-COV-2 COVID-19 VACCINE - (MODERNA) 2021-04-09 00:00:00 Completed [facility] SARS-COV-2 COVID-19 VACCINE - (MODERNA) 2021-04-09 00:00:00 Completed SARS-COV-2 COVID-19 VACCINE - (MODERNA) 2021-04-09 00:00:00 Completed Meningococcal Polysaccharide (groups A, C, Y and W-135) conjugate vaccine (MCV4P) 2019-04-10 00:00:00 Completed [facility] Meningococcal Polysaccharide (groups A, C, Y and W-135) conjugate vaccine (MCV4P) 2019-04-10 00:00:00 Completed [facility] Meningococcal Polysaccharide (groups A, C, Y and W-135) conjugate vaccine (MCV4P) 2019-04-10 00:00:00 Completed [facility] Meningococcal Polysaccharide (groups A, C, Y and W-135) conjugate vaccine (MCV4P) 2019-04-10 00:00:00 Completed [facility] Meningococcal Polysaccharide (groups A, C, Y and W-135) conjugate vaccine (MCV4P) 2019-04-10 00:00:00 Completed [facility] Meningococcal Polysaccharide (groups A, C, Y and W-135) conjugate vaccine (MCV4P) 2019-04-10 00:00:00 Completed [facility] Meningococcal Polysaccharide (groups A, C, Y and W-135) conjugate vaccine (MCV4P) 2019-04-10 00:00:00 Completed [facility] Meningococcal Polysaccharide (groups A, C, Y and W-135) conjugate vaccine (MCV4P) 2019-04-10 00:00:00 Completed [facility] Meningococcal Polysaccharide (groups A, C, Y and W-135) conjugate vaccine (MCV4P) 2019-04-10 00:00:00 Completed [facility] Meningococcal Polysaccharide (groups A, C, Y and W-135) conjugate vaccine (MCV4P) 2019-04-10 00:00:00 Completed [facility] Meningococcal Polysaccharide (groups A, C, Y and W-135) conjugate vaccine (MCV4P) 2019-04-10 00:00:00 Completed [facility] Meningococcal Polysaccharide (groups A, C, Y and W-135) conjugate vaccine (MCV4P) 2019-04-10 00:00:00 Completed [facility] Meningococcal Polysaccharide (groups A, C, Y and W-135) conjugate vaccine (MCV4P) 2019-04-10 00:00:00 Completed [facility] Meningococcal Polysaccharide (groups A, C, Y and W-135) conjugate vaccine (MCV4P) 2019-04-10 00:00:00 Completed [facility] Meningococcal Polysaccharide (groups A, C, Y and W-135) conjugate vaccine (MCV4P) 2019-04-10 00:00:00 Completed [facility] Meningococcal Polysaccharide (groups A, C, Y and W-135) conjugate vaccine (MCV4P) 2019-04-10 00:00:00 Completed [facility] Meningococcal Polysaccharide (groups A, C, Y and W-135) conjugate vaccine (MCV4P) 2019-04-10 00:00:00 Completed [facility] Meningococcal Polysaccharide (groups A, C, Y and W-135) conjugate vaccine (MCV4P) 2019-04-10 00:00:00 Completed [facility] Meningococcal Polysaccharide (groups A, C, Y and W-135) conjugate vaccine (MCV4P) 2019-04-10 00:00:00 Completed [facility] Meningococcal Polysaccharide (groups A, C, Y and W-135) conjugate vaccine (MCV4P) 2019-04-10 00:00:00 Completed [facility] Meningococcal Polysaccharide (groups A, C, Y and W-135) conjugate vaccine (MCV4P) 2019-04-10 00:00:00 Completed [facility] Meningococcal Polysaccharide (groups A, C, Y and W-135) conjugate vaccine (MCV4P) 2019-04-10 00:00:00 Completed Meningococcal Polysaccharide (groups A, C, Y and W-135) conjugate vaccine (MCV4P) 2019-04-10 00:00:00 Completed Meningococcal Polysaccharide (groups A, C, Y and W-135) conjugate vaccine (MCV4P) 2019-04-10 00:00:00 Completed [facility] Meningococcal Polysaccharide (groups A, C, Y and W-135) conjugate vaccine (MCV4P) 2019-04-10 00:00:00 Completed [facility] Meningococcal Polysaccharide (groups A, C, Y and W-135) conjugate vaccine (MCV4P) 2019-04-10 00:00:00 Completed [facility] TDAP 2018-02-07 00:00:00 Completed [facility] TDAP 2018-02-07 00:00:00 Completed [facility] TDAP 2018-02-07 00:00:00 Completed [facility] TDAP 2018-02-07 00:00:00 Completed [facility] TDAP 2018-02-07 00:00:00 Completed [facility] TDAP 2018-02-07 00:00:00 Completed [facility] TDAP 2018-02-07 00:00:00 Completed [facility] TDAP 2018-02-07 00:00:00 Completed [facility] TDAP 2018-02-07 00:00:00 Completed [facility] TDAP 2018-02-07 00:00:00 Completed [facility] TDAP 2018-02-07 00:00:00 Completed [facility] TDAP 2018-02-07 00:00:00 Completed [facility] TDAP 2018-02-07 00:00:00 Completed [facility] TDAP 2018-02-07 00:00:00 Completed [facility] TDAP 2018-02-07 00:00:00 Completed [facility] TDAP 2018-02-07 00:00:00 Completed [facility] TDAP 2018-02-07 00:00:00 Completed [facility] TDAP 2018-02-07 00:00:00 Completed [facility] TDAP 2018-02-07 00:00:00 Completed [facility] TDAP 2018-02-07 00:00:00 Completed [facility] TDAP 2018-02-07 00:00:00 Completed [facility] TDAP 2018-02-07 00:00:00 Completed [facility] TDAP 2018-02-07 00:00:00 Completed [facility] TDAP 2018-02-07 00:00:00 Completed [facility] TDAP 2018-02-07 00:00:00 Completed [facility] TDAP 2018-02-07 00:00:00 Completed [facility] HPV 2013-07-24 00:00:00 Completed [facility] HPV 2013-07-24 00:00:00 Completed [facility] HPV 2013-07-24 00:00:00 Completed [facility] HPV 2013-07-24 00:00:00 Completed [facility] HPV 2013-07-24 00:00:00 Completed [facility] HPV 2013-07-24 00:00:00 Completed [facility] HPV 2013-07-24 00:00:00 Completed [facility] HPV 2013-07-24 00:00:00 Completed [facility] HPV 2013-07-24 00:00:00 Completed [facility] HPV 2013-07-24 00:00:00 Completed [facility] HPV 2013-07-24 00:00:00 Completed [facility] HPV 2013-07-24 00:00:00 Completed [facility] HPV 2013-07-24 00:00:00 Completed [facility] HPV 2013-07-24 00:00:00 Completed [facility] HPV 2013-07-24 00:00:00 Completed [facility] HPV 2013-07-24 00:00:00 Completed [facility] HPV 2013-07-24 00:00:00 Completed [facility] HPV 2013-07-24 00:00:00 Completed [facility] HPV 2013-07-24 00:00:00 Completed [facility] HPV 2013-07-24 00:00:00 Completed [facility] HPV 2013-07-24 00:00:00 Completed [facility] HPV 2013-07-24 00:00:00 Completed HPV 2013-07-24 00:00:00 Completed HPV 2013-07-24 00:00:00 Completed [facility] HPV 2013-07-24 00:00:00 Completed [facility] HPV 2013-07-24 00:00:00 Completed [facility] HPV 2013-04-16 00:00:00 Completed [facility] HPV 2013-04-16 00:00:00 Completed [facility] HPV 2013-04-16 00:00:00 Completed [facility] HPV 2013-04-16 00:00:00 Completed [facility] HPV 2013-04-16 00:00:00 Completed [facility] HPV 2013-04-16 00:00:00 Completed [facility] HPV 2013-04-16 00:00:00 Completed [facility] HPV 2013-04-16 00:00:00 Completed [facility] HPV 2013-04-16 00:00:00 Completed [facility] HPV 2013-04-16 00:00:00 Completed [facility] HPV 2013-04-16 00:00:00 Completed [facility] HPV 2013-04-16 00:00:00 Completed [facility] HPV 2013-04-16 00:00:00 Completed [facility] HPV 2013-04-16 00:00:00 Completed [facility] HPV 2013-04-16 00:00:00 Completed [facility] HPV 2013-04-16 00:00:00 Completed [facility] HPV 2013-04-16 00:00:00 Completed [facility] HPV 2013-04-16 00:00:00 Completed [facility] HPV 2013-04-16 00:00:00 Completed [facility] HPV 2013-04-16 00:00:00 Completed [facility] HPV 2013-04-16 00:00:00 Completed [facility] HPV 2013-04-16 00:00:00 Completed HPV 2013-04-16 00:00:00 Completed HPV 2013-04-16 00:00:00 Completed [facility] HPV 2013-04-16 00:00:00 Completed [facility] HPV 2013-04-16 00:00:00 Completed [facility] HPV 2013-01-21 00:00:00 Completed [facility] Meningococcal Polysaccharide (groups A, C, Y and W-135) conjugate vaccine (MCV4P) 2013-01-21 00:00:00 Completed [facility] TDAP 2013-01-21 00:00:00 Completed [facility] HPV 2013-01-21 00:00:00 Completed [facility] Meningococcal Polysaccharide (groups A, C, Y and W-135) conjugate vaccine (MCV4P) 2013-01-21 00:00:00 Completed [facility] TDAP 2013-01-21 00:00:00 Completed [facility] HPV 2013-01-21 00:00:00 Completed [facility] Meningococcal Polysaccharide (groups A, C, Y and W-135) conjugate vaccine (MCV4P) 2013-01-21 00:00:00 Completed [facility] TDAP 2013-01-21 00:00:00 Completed [facility] HPV 2013-01-21 00:00:00 Completed [facility] Meningococcal Polysaccharide (groups A, C, Y and W-135) conjugate vaccine (MCV4P) 2013-01-21 00:00:00 Completed [facility] TDAP 2013-01-21 00:00:00 Completed [facility] HPV 2013-01-21 00:00:00 Completed [facility] Meningococcal Polysaccharide (groups A, C, Y and W-135) conjugate vaccine (MCV4P) 2013-01-21 00:00:00 Completed [facility] TDAP 2013-01-21 00:00:00 Completed [facility] HPV 2013-01-21 00:00:00 Completed [facility] Meningococcal Polysaccharide (groups A, C, Y and W-135) conjugate vaccine (MCV4P) 2013-01-21 00:00:00 Completed [facility] TDAP 2013-01-21 00:00:00 Completed [facility] HPV 2013-01-21 00:00:00 Completed [facility] Meningococcal Polysaccharide (groups A, C, Y and W-135) conjugate vaccine (MCV4P) 2013-01-21 00:00:00 Completed [facility] TDAP 2013-01-21 00:00:00 Completed [facility] HPV 2013-01-21 00:00:00 Completed [facility] Meningococcal Polysaccharide (groups A, C, Y and W-135) conjugate vaccine (MCV4P) 2013-01-21 00:00:00 Completed [facility] TDAP 2013-01-21 00:00:00 Completed [facility] HPV 2013-01-21 00:00:00 Completed [facility] Meningococcal Polysaccharide (groups A, C, Y and W-135) conjugate vaccine (MCV4P) 2013-01-21 00:00:00 Completed [facility] TDAP 2013-01-21 00:00:00 Completed [facility] HPV 2013-01-21 00:00:00 Completed [facility] Meningococcal Polysaccharide (groups A, C, Y and W-135) conjugate vaccine (MCV4P) 2013-01-21 00:00:00 Completed [facility] TDAP 2013-01-21 00:00:00 Completed [facility] HPV 2013-01-21 00:00:00 Completed [facility] Meningococcal Polysaccharide (groups A, C, Y and W-135) conjugate vaccine (MCV4P) 2013-01-21 00:00:00 Completed [facility] TDAP 2013-01-21 00:00:00 Completed [facility] HPV 2013-01-21 00:00:00 Completed [facility] Meningococcal Polysaccharide (groups A, C, Y and W-135) conjugate vaccine (MCV4P) 2013-01-21 00:00:00 Completed [facility] TDAP 2013-01-21 00:00:00 Completed [facility] HPV 2013-01-21 00:00:00 Completed [facility] Meningococcal Polysaccharide (groups A, C, Y and W-135) conjugate vaccine (MCV4P) 2013-01-21 00:00:00 Completed [facility] TDAP 2013-01-21 00:00:00 Completed [facility] HPV 2013-01-21 00:00:00 Completed [facility] Meningococcal Polysaccharide (groups A, C, Y and W-135) conjugate vaccine (MCV4P) 2013-01-21 00:00:00 Completed [facility] TDAP 2013-01-21 00:00:00 Completed [facility] HPV 2013-01-21 00:00:00 Completed [facility] Meningococcal Polysaccharide (groups A, C, Y and W-135) conjugate vaccine (MCV4P) 2013-01-21 00:00:00 Completed [facility] TDAP 2013-01-21 00:00:00 Completed [facility] HPV 2013-01-21 00:00:00 Completed [facility] Meningococcal Polysaccharide (groups A, C, Y and W-135) conjugate vaccine (MCV4P) 2013-01-21 00:00:00 Completed [facility] TDAP 2013-01-21 00:00:00 Completed [facility] HPV 2013-01-21 00:00:00 Completed [facility] Meningococcal Polysaccharide (groups A, C, Y and W-135) conjugate vaccine (MCV4P) 2013-01-21 00:00:00 Completed [facility] TDAP 2013-01-21 00:00:00 Completed [facility] HPV 2013-01-21 00:00:00 Completed [facility] Meningococcal Polysaccharide (groups A, C, Y and W-135) conjugate vaccine (MCV4P) 2013-01-21 00:00:00 Completed [facility] TDAP 2013-01-21 00:00:00 Completed [facility] HPV 2013-01-21 00:00:00 Completed [facility] Meningococcal Polysaccharide (groups A, C, Y and W-135) conjugate vaccine (MCV4P) 2013-01-21 00:00:00 Completed [facility] TDAP 2013-01-21 00:00:00 Completed [facility] HPV 2013-01-21 00:00:00 Completed [facility] Meningococcal Polysaccharide (groups A, C, Y and W-135) conjugate vaccine (MCV4P) 2013-01-21 00:00:00 Completed [facility] TDAP 2013-01-21 00:00:00 Completed [facility] HPV 2013-01-21 00:00:00 Completed [facility] Meningococcal Polysaccharide (groups A, C, Y and W-135) conjugate vaccine (MCV4P) 2013-01-21 00:00:00 Completed [facility] TDAP 2013-01-21 00:00:00 Completed [facility] HPV 2013-01-21 00:00:00 Completed Meningococcal Polysaccharide (groups A, C, Y and W-135) conjugate vaccine (MCV4P) 2013-01-21 00:00:00 Completed TDAP 2013-01-21 00:00:00 Completed HPV 2013-01-21 00:00:00 Completed Meningococcal Polysaccharide (groups A, C, Y and W-135) conjugate vaccine (MCV4P) 2013-01-21 00:00:00 Completed TDAP 2013-01-21 00:00:00 Completed HPV 2013-01-21 00:00:00 Completed [facility] Meningococcal Polysaccharide (groups A, C, Y and W-135) conjugate vaccine (MCV4P) 2013-01-21 00:00:00 Completed [facility] TDAP 2013-01-21 00:00:00 Completed [facility] HPV 2013-01-21 00:00:00 Completed [facility] Meningococcal Polysaccharide (groups A, C, Y and W-135) conjugate vaccine (MCV4P) 2013-01-21 00:00:00 Completed [facility] TDAP 2013-01-21 00:00:00 Completed [facility] HPV 2013-01-21 00:00:00 Completed [facility] Meningococcal Polysaccharide (groups A, C, Y and W-135) conjugate vaccine (MCV4P) 2013-01-21 00:00:00 Completed [facility] TDAP 2013-01-21 00:00:00 Completed [facility] HEPATITIS A 2006-06-27 00:00:00 Completed [facility] HEPATITIS A 2006-06-27 00:00:00 Completed [facility] HEPATITIS A 2006-06-27 00:00:00 Completed [facility] HEPATITIS A 2006-06-27 00:00:00 Completed [facility] HEPATITIS A 2006-06-27 00:00:00 Completed [facility] HEPATITIS A 2006-06-27 00:00:00 Completed [facility] HEPATITIS A 2006-06-27 00:00:00 Completed [facility] HEPATITIS A 2006-06-27 00:00:00 Completed [facility] HEPATITIS A 2006-06-27 00:00:00 Completed [facility] HEPATITIS A 2006-06-27 00:00:00 Completed [facility] HEPATITIS A 2006-06-27 00:00:00 Completed [facility] HEPATITIS A 2006-06-27 00:00:00 Completed [facility] HEPATITIS A 2006-06-27 00:00:00 Completed [facility] HEPATITIS A 2006-06-27 00:00:00 Completed [facility] HEPATITIS A 2006-06-27 00:00:00 Completed [facility] HEPATITIS A 2006-06-27 00:00:00 Completed [facility] HEPATITIS A 2006-06-27 00:00:00 Completed [facility] HEPATITIS A 2006-06-27 00:00:00 Completed [facility] HEPATITIS A 2006-06-27 00:00:00 Completed [facility] HEPATITIS A 2006-06-27 00:00:00 Completed [facility] HEPATITIS A 2006-06-27 00:00:00 Completed HEPATITIS A 2006-06-27 00:00:00 Completed HEPATITIS A 2006-06-27 00:00:00 Completed [facility] HEPATITIS A 2006-06-27 00:00:00 Completed [facility] HEPATITIS A 2006-06-27 00:00:00 Completed [facility] HEPATITIS A 2006-06-27 00:00:00 Completed [facility] Hep B, Adol or Pedi Dosage 2005-11-15 00:00:00 Completed [facility] MMR 2005-11-15 00:00:00 Completed [facility] Polio (IPV/OPV) 2005-11-15 00:00:00 Completed [facility] Varicella (varivax)(chicken pox) 2005-11-15 00:00:00 Completed [facility] Pneumococcal 7 Conjugate, PCV7 (Prevnar7) 2005-11-15 00:00:00 Completed [facility] DTAP 2005-11-15 00:00:00 Completed [facility] HEPATITIS A 2005-11-15 00:00:00 Completed [facility] Hep B, Adol or Pedi Dosage 2005-11-15 00:00:00 Completed [facility] MMR 2005-11-15 00:00:00 Completed [facility] Polio (IPV/OPV) 2005-11-15 00:00:00 Completed [facility] Varicella (varivax)(chicken pox) 2005-11-15 00:00:00 Completed [facility] Pneumococcal 7 Conjugate, PCV7 (Prevnar7) 2005-11-15 00:00:00 Completed [facility] DTAP 2005-11-15 00:00:00 Completed [facility] HEPATITIS A 2005-11-15 00:00:00 Completed [facility] Hep B, Adol or Pedi Dosage 2005-11-15 00:00:00 Completed [facility] MMR 2005-11-15 00:00:00 Completed [facility] Polio (IPV/OPV) 2005-11-15 00:00:00 Completed [facility] Varicella (varivax)(chicken pox) 2005-11-15 00:00:00 Completed [facility] Pneumococcal 7 Conjugate, PCV7 (Prevnar7) 2005-11-15 00:00:00 Completed [facility] DTAP 2005-11-15 00:00:00 Completed [facility] HEPATITIS A 2005-11-15 00:00:00 Completed [facility] Hep B, Adol or Pedi Dosage 2005-11-15 00:00:00 Completed [facility] MMR 2005-11-15 00:00:00 Completed [facility] Polio (IPV/OPV) 2005-11-15 00:00:00 Completed [facility] Varicella (varivax)(chicken pox) 2005-11-15 00:00:00 Completed [facility] Pneumococcal 7 Conjugate, PCV7 (Prevnar7) 2005-11-15 00:00:00 Completed [facility] DTAP 2005-11-15 00:00:00 Completed [facility] HEPATITIS A 2005-11-15 00:00:00 Completed [facility] Hep B, Adol or Pedi Dosage 2005-11-15 00:00:00 Completed [facility] MMR 2005-11-15 00:00:00 Completed [facility] Polio (IPV/OPV) 2005-11-15 00:00:00 Completed [facility] Varicella (varivax)(chicken pox) 2005-11-15 00:00:00 Completed [facility] Pneumococcal 7 Conjugate, PCV7 (Prevnar7) 2005-11-15 00:00:00 Completed [facility] DTAP 2005-11-15 00:00:00 Completed [facility] HEPATITIS A 2005-11-15 00:00:00 Completed [facility] Hep B, Adol or Pedi Dosage 2005-11-15 00:00:00 Completed [facility] MMR 2005-11-15 00:00:00 Completed [facility] Polio (IPV/OPV) 2005-11-15 00:00:00 Completed [facility] Varicella (varivax)(chicken pox) 2005-11-15 00:00:00 Completed [facility] Pneumococcal 7 Conjugate, PCV7 (Prevnar7) 2005-11-15 00:00:00 Completed [facility] DTAP 2005-11-15 00:00:00 Completed [facility] HEPATITIS A 2005-11-15 00:00:00 Completed [facility] Hep B, Adol or Pedi Dosage 2005-11-15 00:00:00 Completed [facility] MMR 2005-11-15 00:00:00 Completed [facility] Polio (IPV/OPV) 2005-11-15 00:00:00 Completed [facility] Varicella (varivax)(chicken pox) 2005-11-15 00:00:00 Completed [facility] Pneumococcal 7 Conjugate, PCV7 (Prevnar7) 2005-11-15 00:00:00 Completed [facility] DTAP 2005-11-15 00:00:00 Completed [facility] HEPATITIS A 2005-11-15 00:00:00 Completed [facility] Hep B, Adol or Pedi Dosage 2005-11-15 00:00:00 Completed [facility] MMR 2005-11-15 00:00:00 Completed [facility] Polio (IPV/OPV) 2005-11-15 00:00:00 Completed [facility] Varicella (varivax)(chicken pox) 2005-11-15 00:00:00 Completed [facility] Pneumococcal 7 Conjugate, PCV7 (Prevnar7) 2005-11-15 00:00:00 Completed [facility] DTAP 2005-11-15 00:00:00 Completed [facility] HEPATITIS A 2005-11-15 00:00:00 Completed [facility] Hep B, Adol or Pedi Dosage 2005-11-15 00:00:00 Completed [facility] MMR 2005-11-15 00:00:00 Completed [facility] Polio (IPV/OPV) 2005-11-15 00:00:00 Completed [facility] Varicella (varivax)(chicken pox) 2005-11-15 00:00:00 Completed [facility] Pneumococcal 7 Conjugate, PCV7 (Prevnar7) 2005-11-15 00:00:00 Completed [facility] DTAP 2005-11-15 00:00:00 Completed [facility] HEPATITIS A 2005-11-15 00:00:00 Completed [facility] Hep B, Adol or Pedi Dosage 2005-11-15 00:00:00 Completed [facility] MMR 2005-11-15 00:00:00 Completed [facility] Polio (IPV/OPV) 2005-11-15 00:00:00 Completed [facility] Varicella (varivax)(chicken pox) 2005-11-15 00:00:00 Completed [facility] Pneumococcal 7 Conjugate, PCV7 (Prevnar7) 2005-11-15 00:00:00 Completed [facility] DTAP 2005-11-15 00:00:00 Completed [facility] HEPATITIS A 2005-11-15 00:00:00 Completed [facility] Hep B, Adol or Pedi Dosage 2005-11-15 00:00:00 Completed [facility] MMR 2005-11-15 00:00:00 Completed [facility] Polio (IPV/OPV) 2005-11-15 00:00:00 Completed [facility] Varicella (varivax)(chicken pox) 2005-11-15 00:00:00 Completed [facility] Pneumococcal 7 Conjugate, PCV7 (Prevnar7) 2005-11-15 00:00:00 Completed [facility] DTAP 2005-11-15 00:00:00 Completed [facility] HEPATITIS A 2005-11-15 00:00:00 Completed [facility] Hep B, Adol or Pedi Dosage 2005-11-15 00:00:00 Completed [facility] MMR 2005-11-15 00:00:00 Completed [facility] Polio (IPV/OPV) 2005-11-15 00:00:00 Completed [facility] Varicella (varivax)(chicken pox) 2005-11-15 00:00:00 Completed [facility] Pneumococcal 7 Conjugate, PCV7 (Prevnar7) 2005-11-15 00:00:00 Completed [facility] DTaP, Unspecified Formulation 2005-11-15 00:00:00 Completed [facility] IPV 2005-11-15 00:00:00 Completed [facility] DTAP 2005-11-15 00:00:00 Completed [facility] HEPATITIS A 2005-11-15 00:00:00 Completed [facility] Hep B, Adol or Pedi Dosage 2005-11-15 00:00:00 Completed [facility] MMR 2005-11-15 00:00:00 Completed [facility] Polio (IPV/OPV) 2005-11-15 00:00:00 Completed [facility] Varicella (varivax)(chicken pox) 2005-11-15 00:00:00 Completed [facility] Pneumococcal 7 Conjugate, PCV7 (Prevnar7) 2005-11-15 00:00:00 Completed [facility] DTaP, Unspecified Formulation 2005-11-15 00:00:00 Completed [facility] IPV 2005-11-15 00:00:00 Completed [facility] DTAP 2005-11-15 00:00:00 Completed [facility] HEPATITIS A 2005-11-15 00:00:00 Completed [facility] Hep B, Adol or Pedi Dosage 2005-11-15 00:00:00 Completed [facility] MMR 2005-11-15 00:00:00 Completed [facility] Polio (IPV/OPV) 2005-11-15 00:00:00 Completed [facility] Varicella (varivax)(chicken pox) 2005-11-15 00:00:00 Completed [facility] Pneumococcal 7 Conjugate, PCV7 (Prevnar7) 2005-11-15 00:00:00 Completed [facility] DTaP, Unspecified Formulation 2005-11-15 00:00:00 Completed [facility] IPV 2005-11-15 00:00:00 Completed [facility] DTAP 2005-11-15 00:00:00 Completed [facility] HEPATITIS A 2005-11-15 00:00:00 Completed [facility] Hep B, Adol or Pedi Dosage 2005-11-15 00:00:00 Completed [facility] MMR 2005-11-15 00:00:00 Completed [facility] Polio (IPV/OPV) 2005-11-15 00:00:00 Completed [facility] Varicella (varivax)(chicken pox) 2005-11-15 00:00:00 Completed [facility] Pneumococcal 7 Conjugate, PCV7 (Prevnar7) 2005-11-15 00:00:00 Completed [facility] DTaP, Unspecified Formulation 2005-11-15 00:00:00 Completed [facility] IPV 2005-11-15 00:00:00 Completed [facility] DTAP 2005-11-15 00:00:00 Completed [facility] HEPATITIS A 2005-11-15 00:00:00 Completed [facility] Hep B, Adol or Pedi Dosage 2005-11-15 00:00:00 Completed [facility] MMR 2005-11-15 00:00:00 Completed [facility] Polio (IPV/OPV) 2005-11-15 00:00:00 Completed [facility] Varicella (varivax)(chicken pox) 2005-11-15 00:00:00 Completed [facility] Pneumococcal 7 Conjugate, PCV7 (Prevnar7) 2005-11-15 00:00:00 Completed [facility] DTaP, Unspecified Formulation 2005-11-15 00:00:00 Completed [facility] IPV 2005-11-15 00:00:00 Completed [facility] DTAP 2005-11-15 00:00:00 Completed [facility] HEPATITIS A 2005-11-15 00:00:00 Completed [facility] Hep B, Adol or Pedi Dosage 2005-11-15 00:00:00 Completed [facility] MMR 2005-11-15 00:00:00 Completed [facility] Polio (IPV/OPV) 2005-11-15 00:00:00 Completed [facility] Varicella (varivax)(chicken pox) 2005-11-15 00:00:00 Completed [facility] Pneumococcal 7 Conjugate, PCV7 (Prevnar7) 2005-11-15 00:00:00 Completed [facility] DTaP, Unspecified Formulation 2005-11-15 00:00:00 Completed [facility] IPV 2005-11-15 00:00:00 Completed [facility] DTAP 2005-11-15 00:00:00 Completed [facility] HEPATITIS A 2005-11-15 00:00:00 Completed [facility] Hep B, Adol or Pedi Dosage 2005-11-15 00:00:00 Completed [facility] MMR 2005-11-15 00:00:00 Completed [facility] Polio (IPV/OPV) 2005-11-15 00:00:00 Completed [facility] Varicella (varivax)(chicken pox) 2005-11-15 00:00:00 Completed [facility] Pneumococcal 7 Conjugate, PCV7 (Prevnar7) 2005-11-15 00:00:00 Completed [facility] DTaP, Unspecified Formulation 2005-11-15 00:00:00 Completed [facility] IPV 2005-11-15 00:00:00 Completed [facility] DTAP 2005-11-15 00:00:00 Completed [facility] HEPATITIS A 2005-11-15 00:00:00 Completed [facility] Hep B, Adol or Pedi Dosage 2005-11-15 00:00:00 Completed [facility] MMR 2005-11-15 00:00:00 Completed [facility] Polio (IPV/OPV) 2005-11-15 00:00:00 Completed [facility] Varicella (varivax)(chicken pox) 2005-11-15 00:00:00 Completed [facility] Pneumococcal 7 Conjugate, PCV7 (Prevnar7) 2005-11-15 00:00:00 Completed [facility] DTaP, Unspecified Formulation 2005-11-15 00:00:00 Completed [facility] IPV 2005-11-15 00:00:00 Completed [facility] DTAP 2005-11-15 00:00:00 Completed [facility] HEPATITIS A 2005-11-15 00:00:00 Completed [facility] Hep B, Adol or Pedi Dosage 2005-11-15 00:00:00 Completed [facility] MMR 2005-11-15 00:00:00 Completed [facility] Polio (IPV/OPV) 2005-11-15 00:00:00 Completed [facility] Varicella (varivax)(chicken pox) 2005-11-15 00:00:00 Completed [facility] Pneumococcal 7 Conjugate, PCV7 (Prevnar7) 2005-11-15 00:00:00 Completed [facility] DTaP, Unspecified Formulation 2005-11-15 00:00:00 Completed [facility] IPV 2005-11-15 00:00:00 Completed [facility] DTAP 2005-11-15 00:00:00 Completed [facility] HEPATITIS A 2005-11-15 00:00:00 Completed [facility] Hep B, Adol or Pedi Dosage 2005-11-15 00:00:00 Completed [facility] MMR 2005-11-15 00:00:00 Completed [facility] Polio (IPV/OPV) 2005-11-15 00:00:00 Completed [facility] Varicella (varivax)(chicken pox) 2005-11-15 00:00:00 Completed [facility] Pneumococcal 7 Conjugate, PCV7 (Prevnar7) 2005-11-15 00:00:00 Completed [facility] DTaP, Unspecified Formulation 2005-11-15 00:00:00 Completed [facility] IPV 2005-11-15 00:00:00 Completed [facility] DTAP 2005-11-15 00:00:00 Completed HEPATITIS A 2005-11-15 00:00:00 Completed Hep B, Adol or Pedi Dosage 2005-11-15 00:00:00 Completed MMR 2005-11-15 00:00:00 Completed Polio (IPV/OPV) 2005-11-15 00:00:00 Completed Varicella (varivax)(chicken pox) 2005-11-15 00:00:00 Completed Pneumococcal 7 Conjugate, PCV7 (Prevnar7) 2005-11-15 00:00:00 Completed DTaP, Unspecified Formulation 2005-11-15 00:00:00 Completed IPV 2005-11-15 00:00:00 Completed DTAP 2005-11-15 00:00:00 Completed HEPATITIS A 2005-11-15 00:00:00 Completed Hep B, Adol or Pedi Dosage 2005-11-15 00:00:00 Completed MMR 2005-11-15 00:00:00 Completed Polio (IPV/OPV) 2005-11-15 00:00:00 Completed Varicella (varivax)(chicken pox) 2005-11-15 00:00:00 Completed Pneumococcal 7 Conjugate, PCV7 (Prevnar7) 2005-11-15 00:00:00 Completed DTaP, Unspecified Formulation 2005-11-15 00:00:00 Completed IPV 2005-11-15 00:00:00 Completed DTAP 2005-11-15 00:00:00 Completed [facility] HEPATITIS A 2005-11-15 00:00:00 Completed [facility] Hep B, Adol or Pedi Dosage 2005-11-15 00:00:00 Completed [facility] MMR 2005-11-15 00:00:00 Completed [facility] Polio (IPV/OPV) 2005-11-15 00:00:00 Completed [facility] Varicella (varivax)(chicken pox) 2005-11-15 00:00:00 Completed [facility] Pneumococcal 7 Conjugate, PCV7 (Prevnar7) 2005-11-15 00:00:00 Completed [facility] DTAP 2005-11-15 00:00:00 Completed [facility] HEPATITIS A 2005-11-15 00:00:00 Completed [facility] Hep B, Adol or Pedi Dosage 2005-11-15 00:00:00 Completed [facility] MMR 2005-11-15 00:00:00 Completed [facility] Polio (IPV/OPV) 2005-11-15 00:00:00 Completed [facility] Varicella (varivax)(chicken pox) 2005-11-15 00:00:00 Completed [facility] Pneumococcal 7 Conjugate, PCV7 (Prevnar7) 2005-11-15 00:00:00 Completed [facility] DTAP 2005-11-15 00:00:00 Completed [facility] HEPATITIS A 2005-11-15 00:00:00 Completed [facility] Hep B, Adol or Pedi Dosage 2005-11-15 00:00:00 Completed [facility] MMR 2005-11-15 00:00:00 Completed [facility] Polio (IPV/OPV) 2005-11-15 00:00:00 Completed [facility] Varicella (varivax)(chicken pox) 2005-11-15 00:00:00 Completed [facility] Pneumococcal 7 Conjugate, PCV7 (Prevnar7) 2005-11-15 00:00:00 Completed [facility] DTAP 2005-11-15 00:00:00 Completed [facility] HEPATITIS A 2005-11-15 00:00:00 Completed [facility] Varicella (varivax)(chicken pox) 2001-11-18 00:00:00 Completed [facility] Varicella (varivax)(chicken pox) 2001-11-18 00:00:00 Completed [facility] Varicella (varivax)(chicken pox) 2001-11-18 00:00:00 Completed [facility] Varicella (varivax)(chicken pox) 2001-11-18 00:00:00 Completed [facility] Varicella (varivax)(chicken pox) 2001-11-18 00:00:00 Completed [facility] Varicella (varivax)(chicken pox) 2001-11-18 00:00:00 Completed [facility] Varicella (varivax)(chicken pox) 2001-11-18 00:00:00 Completed [facility] Varicella (varivax)(chicken pox) 2001-11-18 00:00:00 Completed [facility] Varicella (varivax)(chicken pox) 2001-11-18 00:00:00 Completed [facility] Varicella (varivax)(chicken pox) 2001-11-18 00:00:00 Completed [facility] Varicella (varivax)(chicken pox) 2001-11-18 00:00:00 Completed [facility] Varicella (varivax)(chicken pox) 2001-11-18 00:00:00 Completed [facility] DTaP, Unspecified Formulation 2001-11-18 00:00:00 Completed [facility] Varicella (varivax)(chicken pox) 2001-11-18 00:00:00 Completed [facility] DTaP, Unspecified Formulation 2001-11-18 00:00:00 Completed [facility] Varicella (varivax)(chicken pox) 2001-11-18 00:00:00 Completed [facility] DTaP, Unspecified Formulation 2001-11-18 00:00:00 Completed [facility] Varicella (varivax)(chicken pox) 2001-11-18 00:00:00 Completed [facility] DTaP, Unspecified Formulation 2001-11-18 00:00:00 Completed [facility] Varicella (varivax)(chicken pox) 2001-11-18 00:00:00 Completed [facility] DTaP, Unspecified Formulation 2001-11-18 00:00:00 Completed [facility] Varicella (varivax)(chicken pox) 2001-11-18 00:00:00 Completed [facility] DTaP, Unspecified Formulation 2001-11-18 00:00:00 Completed [facility] Varicella (varivax)(chicken pox) 2001-11-18 00:00:00 Completed [facility] DTaP, Unspecified Formulation 2001-11-18 00:00:00 Completed [facility] Varicella (varivax)(chicken pox) 2001-11-18 00:00:00 Completed [facility] DTaP, Unspecified Formulation 2001-11-18 00:00:00 Completed [facility] Varicella (varivax)(chicken pox) 2001-11-18 00:00:00 Completed [facility] DTaP, Unspecified Formulation 2001-11-18 00:00:00 Completed [facility] Varicella (varivax)(chicken pox) 2001-11-18 00:00:00 Completed [facility] DTaP, Unspecified Formulation 2001-11-18 00:00:00 Completed [facility] Varicella (varivax)(chicken pox) 2001-11-18 00:00:00 Completed DTaP, Unspecified Formulation 2001-11-18 00:00:00 Completed Varicella (varivax)(chicken pox) 2001-11-18 00:00:00 Completed DTaP, Unspecified Formulation 2001-11-18 00:00:00 Completed Varicella (varivax)(chicken pox) 2001-11-18 00:00:00 Completed [facility] Varicella (varivax)(chicken pox) 2001-11-18 00:00:00 Completed [facility] Varicella (varivax)(chicken pox) 2001-11-18 00:00:00 Completed [facility] Hep B, Adol or Pedi Dosage 2001 00:00:00 Completed [facility] MMR 2001 00:00:00 Completed [facility] Polio (IPV/OPV) 2001 00:00:00 Completed [facility] Pneumococcal 7 Conjugate, PCV7 (Prevnar7) 2001 00:00:00 Completed [facility] HIB 4 Dose Schedule 2001 00:00:00 Completed [facility] Hep B, Adol or Pedi Dosage 2001 00:00:00 Completed [facility] MMR 2001 00:00:00 Completed [facility] Polio (IPV/OPV) 2001 00:00:00 Completed [facility] Pneumococcal 7 Conjugate, PCV7 (Prevnar7) 2001 00:00:00 Completed [facility] HIB 4 Dose Schedule 2001 00:00:00 Completed [facility] Hep B, Adol or Pedi Dosage 2001 00:00:00 Completed [facility] MMR 2001 00:00:00 Completed [facility] Polio (IPV/OPV) 2001 00:00:00 Completed [facility] Pneumococcal 7 Conjugate, PCV7 (Prevnar7) 2001 00:00:00 Completed [facility] HIB 4 Dose Schedule 2001 00:00:00 Completed [facility] Hep B, Adol or Pedi Dosage 2001 00:00:00 Completed [facility] MMR 2001 00:00:00 Completed [facility] Polio (IPV/OPV) 2001 00:00:00 Completed [facility] Pneumococcal 7 Conjugate, PCV7 (Prevnar7) 2001 00:00:00 Completed [facility] HIB 4 Dose Schedule 2001 00:00:00 Completed [facility] Hep B, Adol or Pedi Dosage 2001 00:00:00 Completed [facility] MMR 2001 00:00:00 Completed [facility] Polio (IPV/OPV) 2001 00:00:00 Completed [facility] Pneumococcal 7 Conjugate, PCV7 (Prevnar7) 2001 00:00:00 Completed [facility] HIB 4 Dose Schedule 2001 00:00:00 Completed [facility] Hep B, Adol or Pedi Dosage 2001 00:00:00 Completed [facility] MMR 2001 00:00:00 Completed [facility] Polio (IPV/OPV) 2001 00:00:00 Completed [facility] Pneumococcal 7 Conjugate, PCV7 (Prevnar7) 2001 00:00:00 Completed [facility] HIB 4 Dose Schedule 2001 00:00:00 Completed [facility] Hep B, Adol or Pedi Dosage 2001 00:00:00 Completed [facility] MMR 2001 00:00:00 Completed [facility] Polio (IPV/OPV) 2001 00:00:00 Completed [facility] Pneumococcal 7 Conjugate, PCV7 (Prevnar7) 2001 00:00:00 Completed [facility] HIB 4 Dose Schedule 2001 00:00:00 Completed [facility] Hep B, Adol or Pedi Dosage 2001 00:00:00 Completed [facility] MMR 2001 00:00:00 Completed [facility] Polio (IPV/OPV) 2001 00:00:00 Completed [facility] Pneumococcal 7 Conjugate, PCV7 (Prevnar7) 2001 00:00:00 Completed [facility] HIB 4 Dose Schedule 2001 00:00:00 Completed [facility] Hep B, Adol or Pedi Dosage 2001 00:00:00 Completed [facility] MMR 2001 00:00:00 Completed [facility] Polio (IPV/OPV) 2001 00:00:00 Completed [facility] Pneumococcal 7 Conjugate, PCV7 (Prevnar7) 2001 00:00:00 Completed [facility] HIB 4 Dose Schedule 2001 00:00:00 Completed [facility] Hep B, Adol or Pedi Dosage 2001 00:00:00 Completed [facility] MMR 2001 00:00:00 Completed [facility] Polio (IPV/OPV) 2001 00:00:00 Completed [facility] Pneumococcal 7 Conjugate, PCV7 (Prevnar7) 2001 00:00:00 Completed [facility] HIB 4 Dose Schedule 2001 00:00:00 Completed [facility] Hep B, Adol or Pedi Dosage 2001 00:00:00 Completed [facility] MMR 2001 00:00:00 Completed [facility] Polio (IPV/OPV) 2001 00:00:00 Completed [facility] Pneumococcal 7 Conjugate, PCV7 (Prevnar7) 2001 00:00:00 Completed [facility] HIB 4 Dose Schedule 2001 00:00:00 Completed [facility] Hep B, Adol or Pedi Dosage 2001 00:00:00 Completed [facility] MMR 2001 00:00:00 Completed [facility] Polio (IPV/OPV) 2001 00:00:00 Completed [facility] Pneumococcal 7 Conjugate, PCV7 (Prevnar7) 2001 00:00:00 Completed [facility] IPV 2001 00:00:00 Completed [facility] HIB 4 Dose Schedule 2001 00:00:00 Completed [facility] Hep B, Adol or Pedi Dosage 2001 00:00:00 Completed [facility] MMR 2001 00:00:00 Completed [facility] Polio (IPV/OPV) 2001 00:00:00 Completed [facility] Pneumococcal 7 Conjugate, PCV7 (Prevnar7) 2001 00:00:00 Completed [facility] IPV 2001 00:00:00 Completed [facility] HIB 4 Dose Schedule 2001 00:00:00 Completed [facility] Hep B, Adol or Pedi Dosage 2001 00:00:00 Completed [facility] MMR 2001 00:00:00 Completed [facility] Polio (IPV/OPV) 2001 00:00:00 Completed [facility] Pneumococcal 7 Conjugate, PCV7 (Prevnar7) 2001 00:00:00 Completed [facility] IPV 2001 00:00:00 Completed [facility] HIB 4 Dose Schedule 2001 00:00:00 Completed [facility] Hep B, Adol or Pedi Dosage 2001 00:00:00 Completed [facility] MMR 2001 00:00:00 Completed [facility] Polio (IPV/OPV) 2001 00:00:00 Completed [facility] Pneumococcal 7 Conjugate, PCV7 (Prevnar7) 2001 00:00:00 Completed [facility] IPV 2001 00:00:00 Completed [facility] HIB 4 Dose Schedule 2001 00:00:00 Completed [facility] Hep B, Adol or Pedi Dosage 2001 00:00:00 Completed [facility] MMR 2001 00:00:00 Completed [facility] Polio (IPV/OPV) 2001 00:00:00 Completed [facility] Pneumococcal 7 Conjugate, PCV7 (Prevnar7) 2001 00:00:00 Completed [facility] IPV 2001 00:00:00 Completed [facility] HIB 4 Dose Schedule 2001 00:00:00 Completed [facility] Hep B, Adol or Pedi Dosage 2001 00:00:00 Completed [facility] MMR 2001 00:00:00 Completed [facility] Polio (IPV/OPV) 2001 00:00:00 Completed [facility] Pneumococcal 7 Conjugate, PCV7 (Prevnar7) 2001 00:00:00 Completed [facility] IPV 2001 00:00:00 Completed [facility] HIB 4 Dose Schedule 2001 00:00:00 Completed [facility] Hep B, Adol or Pedi Dosage 2001 00:00:00 Completed [facility] MMR 2001 00:00:00 Completed [facility] Polio (IPV/OPV) 2001 00:00:00 Completed [facility] Pneumococcal 7 Conjugate, PCV7 (Prevnar7) 2001 00:00:00 Completed [facility] IPV 2001 00:00:00 Completed [facility] HIB 4 Dose Schedule 2001 00:00:00 Completed [facility] Hep B, Adol or Pedi Dosage 2001 00:00:00 Completed [facility] MMR 2001 00:00:00 Completed [facility] Polio (IPV/OPV) 2001 00:00:00 Completed [facility] Pneumococcal 7 Conjugate, PCV7 (Prevnar7) 2001 00:00:00 Completed [facility] IPV 2001 00:00:00 Completed [facility] HIB 4 Dose Schedule 2001 00:00:00 Completed [facility] Hep B, Adol or Pedi Dosage 2001 00:00:00 Completed [facility] MMR 2001 00:00:00 Completed [facility] Polio (IPV/OPV) 2001 00:00:00 Completed [facility] Pneumococcal 7 Conjugate, PCV7 (Prevnar7) 2001 00:00:00 Completed [facility] IPV 2001 00:00:00 Completed [facility] HIB 4 Dose Schedule 2001 00:00:00 Completed [facility] Hep B, Adol or Pedi Dosage 2001 00:00:00 Completed [facility] MMR 2001 00:00:00 Completed [facility] Polio (IPV/OPV) 2001 00:00:00 Completed [facility] Pneumococcal 7 Conjugate, PCV7 (Prevnar7) 2001 00:00:00 Completed [facility] IPV 2001 00:00:00 Completed [facility] HIB 4 Dose Schedule 2001 00:00:00 Completed Hep B, Adol or Pedi Dosage 2001 00:00:00 Completed MMR 2001 00:00:00 Completed Polio (IPV/OPV) 2001 00:00:00 Completed Pneumococcal 7 Conjugate, PCV7 (Prevnar7) 2001 00:00:00 Completed IPV 2001 00:00:00 Completed HIB 4 Dose Schedule 2001 00:00:00 Completed Hep B, Adol or Pedi Dosage 2001 00:00:00 Completed MMR 2001 00:00:00 Completed Polio (IPV/OPV) 2001 00:00:00 Completed Pneumococcal 7 Conjugate, PCV7 (Prevnar7) 2001 00:00:00 Completed IPV 2001 00:00:00 Completed HIB 4 Dose Schedule 2001 00:00:00 Completed [facility] Hep B, Adol or Pedi Dosage 2001 00:00:00 Completed [facility] MMR 2001 00:00:00 Completed [facility] Polio (IPV/OPV) 2001 00:00:00 Completed [facility] Pneumococcal 7 Conjugate, PCV7 (Prevnar7) 2001 00:00:00 Completed [facility] HIB 4 Dose Schedule 2001 00:00:00 Completed [facility] Hep B, Adol or Pedi Dosage 2001 00:00:00 Completed [facility] [facility]00 Completed [facility] Polio (IPV/OPV) 2001 00:00:00 Completed [facility] Pneumococcal 7 Conjugate, PCV7 (Prevnar7) 2001 00:00:00 Completed [facility] HIB 4 Dose Schedule 2001 00:00:00 Completed [facility] Hep B, Adol or Pedi Dosage 2001 00:00:00 Completed [facility] MMR 2001 00:00:00 Completed [facility] Polio (IPV/OPV) 2001 00:00:00 Completed [facility] Pneumococcal 7 Conjugate, PCV7 (Prevnar7) 2001 00:00:00 Completed [facility] HIB 4 Dose Schedule 2001 00:00:00 Completed [facility] Pneumococcal 7 Conjugate, PCV7 (Prevnar7) 2001-05-10 00:00:00 Completed [facility] DTAP 2001-05-10 00:00:00 Completed [facility] HIB 4 Dose Schedule 2001-05-10 00:00:00 Completed [facility] Pneumococcal 7 Conjugate, PCV7 (Prevnar7) 2001-05-10 00:00:00 Completed [facility] DTAP 2001-05-10 00:00:00 Completed [facility] HIB 4 Dose Schedule 2001-05-10 00:00:00 Completed [facility] Pneumococcal 7 Conjugate, PCV7 (Prevnar7) 2001-05-10 00:00:00 Completed [facility] DTAP 2001-05-10 00:00:00 Completed [facility] HIB 4 Dose Schedule 2001-05-10 00:00:00 Completed [facility] Pneumococcal 7 Conjugate, PCV7 (Prevnar7) 2001-05-10 00:00:00 Completed [facility] DTAP 2001-05-10 00:00:00 Completed [facility] HIB 4 Dose Schedule 2001-05-10 00:00:00 Completed [facility] Pneumococcal 7 Conjugate, PCV7 (Prevnar7) 2001-05-10 00:00:00 Completed [facility] DTAP 2001-05-10 00:00:00 Completed [facility] HIB 4 Dose Schedule 2001-05-10 00:00:00 Completed [facility] Pneumococcal 7 Conjugate, PCV7 (Prevnar7) 2001-05-10 00:00:00 Completed [facility] DTAP 2001-05-10 00:00:00 Completed [facility] HIB 4 Dose Schedule 2001-05-10 00:00:00 Completed [facility] Pneumococcal 7 Conjugate, PCV7 (Prevnar7) 2001-05-10 00:00:00 Completed [facility] DTAP 2001-05-10 00:00:00 Completed [facility] HIB 4 Dose Schedule 2001-05-10 00:00:00 Completed [facility] Pneumococcal 7 Conjugate, PCV7 (Prevnar7) 2001-05-10 00:00:00 Completed [facility] DTAP 2001-05-10 00:00:00 Completed [facility] HIB 4 Dose Schedule 2001-05-10 00:00:00 Completed [facility] Pneumococcal 7 Conjugate, PCV7 (Prevnar7) 2001-05-10 00:00:00 Completed [facility] DTAP 2001-05-10 00:00:00 Completed [facility] HIB 4 Dose Schedule 2001-05-10 00:00:00 Completed [facility] Pneumococcal 7 Conjugate, PCV7 (Prevnar7) 2001-05-10 00:00:00 Completed [facility] DTAP 2001-05-10 00:00:00 Completed [facility] HIB 4 Dose Schedule 2001-05-10 00:00:00 Completed [facility] Pneumococcal 7 Conjugate, PCV7 (Prevnar7) 2001-05-10 00:00:00 Completed [facility] DTAP 2001-05-10 00:00:00 Completed [facility] HIB 4 Dose Schedule 2001-05-10 00:00:00 Completed [facility] Pneumococcal 7 Conjugate, PCV7 (Prevnar7) 2001-05-10 00:00:00 Completed [facility] DTaP, Unspecified Formulation 2001-05-10 00:00:00 Completed [facility] Hib-HbOC 2001-05-10 00:00:00 Completed [facility] DTAP 2001-05-10 00:00:00 Completed [facility] HIB 4 Dose Schedule 2001-05-10 00:00:00 Completed [facility] Pneumococcal 7 Conjugate, PCV7 (Prevnar7) 2001-05-10 00:00:00 Completed [facility] DTaP, Unspecified Formulation 2001-05-10 00:00:00 Completed [facility] Hib-HbOC 2001-05-10 00:00:00 Completed [facility] DTAP 2001-05-10 00:00:00 Completed [facility] HIB 4 Dose Schedule 2001-05-10 00:00:00 Completed [facility] Pneumococcal 7 Conjugate, PCV7 (Prevnar7) 2001-05-10 00:00:00 Completed [facility] DTaP, Unspecified Formulation 2001-05-10 00:00:00 Completed [facility] Hib-HbOC 2001-05-10 00:00:00 Completed [facility] DTAP 2001-05-10 00:00:00 Completed [facility] HIB 4 Dose Schedule 2001-05-10 00:00:00 Completed [facility] Pneumococcal 7 Conjugate, PCV7 (Prevnar7) 2001-05-10 00:00:00 Completed [facility] DTaP, Unspecified Formulation 2001-05-10 00:00:00 Completed [facility] Hib-HbOC 2001-05-10 00:00:00 Completed [facility] DTAP 2001-05-10 00:00:00 Completed [facility] HIB 4 Dose Schedule 2001-05-10 00:00:00 Completed [facility] Pneumococcal 7 Conjugate, PCV7 (Prevnar7) 2001-05-10 00:00:00 Completed [facility] DTaP, Unspecified Formulation 2001-05-10 00:00:00 Completed [facility] Hib-HbOC 2001-05-10 00:00:00 Completed [facility] DTAP 2001-05-10 00:00:00 Completed [facility] HIB 4 Dose Schedule 2001-05-10 00:00:00 Completed [facility] Pneumococcal 7 Conjugate, PCV7 (Prevnar7) 2001-05-10 00:00:00 Completed [facility] DTaP, Unspecified Formulation 2001-05-10 00:00:00 Completed [facility] Hib-HbOC 2001-05-10 00:00:00 Completed [facility] DTAP 2001-05-10 00:00:00 Completed [facility] HIB 4 Dose Schedule 2001-05-10 00:00:00 Completed [facility] Pneumococcal 7 Conjugate, PCV7 (Prevnar7) 2001-05-10 00:00:00 Completed [facility] DTaP, Unspecified Formulation 2001-05-10 00:00:00 Completed [facility] Hib-HbOC 2001-05-10 00:00:00 Completed [facility] DTAP 2001-05-10 00:00:00 Completed [facility] HIB 4 Dose Schedule 2001-05-10 00:00:00 Completed [facility] Pneumococcal 7 Conjugate, PCV7 (Prevnar7) 2001-05-10 00:00:00 Completed [facility] DTaP, Unspecified Formulation 2001-05-10 00:00:00 Completed [facility] Hib-HbOC 2001-05-10 00:00:00 Completed [facility] DTAP 2001-05-10 00:00:00 Completed [facility] HIB 4 Dose Schedule 2001-05-10 00:00:00 Completed [facility] Pneumococcal 7 Conjugate, PCV7 (Prevnar7) 2001-05-10 00:00:00 Completed [facility] DTaP, Unspecified Formulation 2001-05-10 00:00:00 Completed [facility] Hib-HbOC 2001-05-10 00:00:00 Completed [facility] DTAP 2001-05-10 00:00:00 Completed [facility] HIB 4 Dose Schedule 2001-05-10 00:00:00 Completed [facility] Pneumococcal 7 Conjugate, PCV7 (Prevnar7) 2001-05-10 00:00:00 Completed [facility] DTaP, Unspecified Formulation 2001-05-10 00:00:00 Completed [facility] Hib-HbOC 2001-05-10 00:00:00 Completed [facility] DTAP 2001-05-10 00:00:00 Completed HIB 4 Dose Schedule 2001-05-10 00:00:00 Completed Pneumococcal 7 Conjugate, PCV7 (Prevnar7) 2001-05-10 00:00:00 Completed DTaP, Unspecified Formulation 2001-05-10 00:00:00 Completed Hib-HbOC 2001-05-10 00:00:00 Completed DTAP 2001-05-10 00:00:00 Completed HIB 4 Dose Schedule 2001-05-10 00:00:00 Completed Pneumococcal 7 Conjugate, PCV7 (Prevnar7) 2001-05-10 00:00:00 Completed DTaP, Unspecified Formulation 2001-05-10 00:00:00 Completed Hib-HbOC 2001-05-10 00:00:00 Completed DTAP 2001-05-10 00:00:00 Completed [facility] HIB 4 Dose Schedule 2001-05-10 00:00:00 Completed [facility] Pneumococcal 7 Conjugate, PCV7 (Prevnar7) 2001-05-10 00:00:00 Completed [facility] DTAP 2001-05-10 00:00:00 Completed [facility] HIB 4 Dose Schedule 2001-05-10 00:00:00 Completed [facility] Pneumococcal 7 Conjugate, PCV7 (Prevnar7) 2001-05-10 00:00:00 Completed [facility] DTAP 2001-05-10 00:00:00 Completed [facility] HIB 4 Dose Schedule 2001-05-10 00:00:00 Completed [facility] Pneumococcal 7 Conjugate, PCV7 (Prevnar7) 2001-05-10 00:00:00 Completed [facility] DTAP 2001-05-10 00:00:00 Completed [facility] HIB 4 Dose Schedule 2001-05-10 00:00:00 Completed [facility] Hep B, Adol or Pedi Dosage 2001-03-06 00:00:00 Completed [facility] Polio (IPV/OPV) 2001-03-06 00:00:00 Completed [facility] Pneumococcal 7 Conjugate, PCV7 (Prevnar7) 2001-03-06 00:00:00 Completed [facility] DTAP 2001-03-06 00:00:00 Completed [facility] HIB 4 Dose Schedule 2001-03-06 00:00:00 Completed [facility] Hep B, Adol or Pedi Dosage 2001-03-06 00:00:00 Completed [facility] Polio (IPV/OPV) 2001-03-06 00:00:00 Completed [facility] Pneumococcal 7 Conjugate, PCV7 (Prevnar7) 2001-03-06 00:00:00 Completed [facility] DTAP 2001-03-06 00:00:00 Completed [facility] HIB 4 Dose Schedule 2001-03-06 00:00:00 Completed [facility] Hep B, Adol or Pedi Dosage 2001-03-06 00:00:00 Completed [facility] Polio (IPV/OPV) 2001-03-06 00:00:00 Completed [facility] Pneumococcal 7 Conjugate, PCV7 (Prevnar7) 2001-03-06 00:00:00 Completed [facility] DTAP 2001-03-06 00:00:00 Completed [facility] HIB 4 Dose Schedule 2001-03-06 00:00:00 Completed [facility] Hep B, Adol or Pedi Dosage 2001-03-06 00:00:00 Completed [facility] Polio (IPV/OPV) 2001-03-06 00:00:00 Completed [facility] Pneumococcal 7 Conjugate, PCV7 (Prevnar7) 2001-03-06 00:00:00 Completed [facility] DTAP 2001-03-06 00:00:00 Completed [facility] HIB 4 Dose Schedule 2001-03-06 00:00:00 Completed [facility] Hep B, Adol or Pedi Dosage 2001-03-06 00:00:00 Completed [facility] Polio (IPV/OPV) 2001-03-06 00:00:00 Completed [facility] Pneumococcal 7 Conjugate, PCV7 (Prevnar7) 2001-03-06 00:00:00 Completed [facility] DTAP 2001-03-06 00:00:00 Completed [facility] HIB 4 Dose Schedule 2001-03-06 00:00:00 Completed [facility] Hep B, Adol or Pedi Dosage 2001-03-06 00:00:00 Completed [facility] Polio (IPV/OPV) 2001-03-06 00:00:00 Completed [facility] Pneumococcal 7 Conjugate, PCV7 (Prevnar7) 2001-03-06 00:00:00 Completed [facility] DTAP 2001-03-06 00:00:00 Completed [facility] HIB 4 Dose Schedule 2001-03-06 00:00:00 Completed [facility] Hep B, Adol or Pedi Dosage 2001-03-06 00:00:00 Completed [facility] Polio (IPV/OPV) 2001-03-06 00:00:00 Completed [facility] Pneumococcal 7 Conjugate, PCV7 (Prevnar7) 2001-03-06 00:00:00 Completed [facility] DTAP 2001-03-06 00:00:00 Completed [facility] HIB 4 Dose Schedule 2001-03-06 00:00:00 Completed [facility] Hep B, Adol or Pedi Dosage 2001-03-06 00:00:00 Completed [facility] Polio (IPV/OPV) 2001-03-06 00:00:00 Completed [facility] Pneumococcal 7 Conjugate, PCV7 (Prevnar7) 2001-03-06 00:00:00 Completed [facility] DTAP 2001-03-06 00:00:00 Completed [facility] HIB 4 Dose Schedule 2001-03-06 00:00:00 Completed [facility] Hep B, Adol or Pedi Dosage 2001-03-06 00:00:00 Completed [facility] Polio (IPV/OPV) 2001-03-06 00:00:00 Completed [facility] Pneumococcal 7 Conjugate, PCV7 (Prevnar7) 2001-03-06 00:00:00 Completed [facility] DTAP 2001-03-06 00:00:00 Completed [facility] HIB 4 Dose Schedule 2001-03-06 00:00:00 Completed [facility] Hep B, Adol or Pedi Dosage 2001-03-06 00:00:00 Completed [facility] Polio (IPV/OPV) 2001-03-06 00:00:00 Completed [facility] Pneumococcal 7 Conjugate, PCV7 (Prevnar7) 2001-03-06 00:00:00 Completed [facility] DTAP 2001-03-06 00:00:00 Completed [facility] HIB 4 Dose Schedule 2001-03-06 00:00:00 Completed [facility] Hep B, Adol or Pedi Dosage 2001-03-06 00:00:00 Completed [facility] Polio (IPV/OPV) 2001-03-06 00:00:00 Completed [facility] Pneumococcal 7 Conjugate, PCV7 (Prevnar7) 2001-03-06 00:00:00 Completed [facility] DTAP 2001-03-06 00:00:00 Completed [facility] HIB 4 Dose Schedule 2001-03-06 00:00:00 Completed [facility] Hep B, Adol or Pedi Dosage 2001-03-06 00:00:00 Completed [facility] Polio (IPV/OPV) 2001-03-06 00:00:00 Completed [facility] Pneumococcal 7 Conjugate, PCV7 (Prevnar7) 2001-03-06 00:00:00 Completed [facility] DTaP, Unspecified Formulation 2001-03-06 00:00:00 Completed [facility] IPV 2001-03-06 00:00:00 Completed [facility] DTAP 2001-03-06 00:00:00 Completed [facility] HIB 4 Dose Schedule 2001-03-06 00:00:00 Completed [facility] Hep B, Adol or Pedi Dosage 2001-03-06 00:00:00 Completed [facility] Polio (IPV/OPV) 2001-03-06 00:00:00 Completed [facility] Pneumococcal 7 Conjugate, PCV7 (Prevnar7) 2001-03-06 00:00:00 Completed [facility] DTaP, Unspecified Formulation 2001-03-06 00:00:00 Completed [facility] IPV 2001-03-06 00:00:00 Completed [facility] DTAP 2001-03-06 00:00:00 Completed [facility] HIB 4 Dose Schedule 2001-03-06 00:00:00 Completed [facility] Hep B, Adol or Pedi Dosage 2001-03-06 00:00:00 Completed [facility] Polio (IPV/OPV) 2001-03-06 00:00:00 Completed [facility] Pneumococcal 7 Conjugate, PCV7 (Prevnar7) 2001-03-06 00:00:00 Completed [facility] DTaP, Unspecified Formulation 2001-03-06 00:00:00 Completed [facility] IPV 2001-03-06 00:00:00 Completed [facility] DTAP 2001-03-06 00:00:00 Completed [facility] HIB 4 Dose Schedule 2001-03-06 00:00:00 Completed [facility] Hep B, Adol or Pedi Dosage 2001-03-06 00:00:00 Completed [facility] Polio (IPV/OPV) 2001-03-06 00:00:00 Completed [facility] Pneumococcal 7 Conjugate, PCV7 (Prevnar7) 2001-03-06 00:00:00 Completed [facility] DTaP, Unspecified Formulation 2001-03-06 00:00:00 Completed [facility] IPV 2001-03-06 00:00:00 Completed [facility] DTAP 2001-03-06 00:00:00 Completed [facility] HIB 4 Dose Schedule 2001-03-06 00:00:00 Completed [facility] Hep B, Adol or Pedi Dosage 2001-03-06 00:00:00 Completed [facility] Polio (IPV/OPV) 2001-03-06 00:00:00 Completed [facility] Pneumococcal 7 Conjugate, PCV7 (Prevnar7) 2001-03-06 00:00:00 Completed [facility] DTaP, Unspecified Formulation 2001-03-06 00:00:00 Completed [facility] IPV 2001-03-06 00:00:00 Completed [facility] DTAP 2001-03-06 00:00:00 Completed [facility] HIB 4 Dose Schedule 2001-03-06 00:00:00 Completed [facility] Hep B, Adol or Pedi Dosage 2001-03-06 00:00:00 Completed [facility] Polio (IPV/OPV) 2001-03-06 00:00:00 Completed [facility] Pneumococcal 7 Conjugate, PCV7 (Prevnar7) 2001-03-06 00:00:00 Completed [facility] DTaP, Unspecified Formulation 2001-03-06 00:00:00 Completed [facility] IPV 2001-03-06 00:00:00 Completed [facility] DTAP 2001-03-06 00:00:00 Completed [facility] HIB 4 Dose Schedule 2001-03-06 00:00:00 Completed [facility] Hep B, Adol or Pedi Dosage 2001-03-06 00:00:00 Completed [facility] Polio (IPV/OPV) 2001-03-06 00:00:00 Completed [facility] Pneumococcal 7 Conjugate, PCV7 (Prevnar7) 2001-03-06 00:00:00 Completed [facility] DTaP, Unspecified Formulation 2001-03-06 00:00:00 Completed [facility] IPV 2001-03-06 00:00:00 Completed [facility] DTAP 2001-03-06 00:00:00 Completed [facility] HIB 4 Dose Schedule 2001-03-06 00:00:00 Completed [facility] Hep B, Adol or Pedi Dosage 2001-03-06 00:00:00 Completed [facility] Polio (IPV/OPV) 2001-03-06 00:00:00 Completed [facility] Pneumococcal 7 Conjugate, PCV7 (Prevnar7) 2001-03-06 00:00:00 Completed [facility] DTaP, Unspecified Formulation 2001-03-06 00:00:00 Completed [facility] IPV 2001-03-06 00:00:00 Completed [facility] DTAP 2001-03-06 00:00:00 Completed [facility] HIB 4 Dose Schedule 2001-03-06 00:00:00 Completed [facility] Hep B, Adol or Pedi Dosage 2001-03-06 00:00:00 Completed [facility] Polio (IPV/OPV) 2001-03-06 00:00:00 Completed [facility] Pneumococcal 7 Conjugate, PCV7 (Prevnar7) 2001-03-06 00:00:00 Completed [facility] DTaP, Unspecified Formulation 2001-03-06 00:00:00 Completed [facility] IPV 2001-03-06 00:00:00 Completed [facility] DTAP 2001-03-06 00:00:00 Completed [facility] HIB 4 Dose Schedule 2001-03-06 00:00:00 Completed [facility] Hep B, Adol or Pedi Dosage 2001-03-06 00:00:00 Completed [facility] Polio (IPV/OPV) 2001-03-06 00:00:00 Completed [facility] Pneumococcal 7 Conjugate, PCV7 (Prevnar7) 2001-03-06 00:00:00 Completed [facility] DTaP, Unspecified Formulation 2001-03-06 00:00:00 Completed [facility] IPV 2001-03-06 00:00:00 Completed [facility] DTAP 2001-03-06 00:00:00 Completed HIB 4 Dose Schedule 2001-03-06 00:00:00 Completed Hep B, Adol or Pedi Dosage 2001-03-06 00:00:00 Completed Polio (IPV/OPV) 2001-03-06 00:00:00 Completed Pneumococcal 7 Conjugate, PCV7 (Prevnar7) 2001-03-06 00:00:00 Completed DTaP, Unspecified Formulation 2001-03-06 00:00:00 Completed IPV 2001-03-06 00:00:00 Completed DTAP 2001-03-06 00:00:00 Completed HIB 4 Dose Schedule 2001-03-06 00:00:00 Completed Hep B, Adol or Pedi Dosage 2001-03-06 00:00:00 Completed Polio (IPV/OPV) 2001-03-06 00:00:00 Completed Pneumococcal 7 Conjugate, PCV7 (Prevnar7) 2001-03-06 00:00:00 Completed DTaP, Unspecified Formulation 2001-03-06 00:00:00 Completed IPV 2001-03-06 00:00:00 Completed DTAP 2001-03-06 00:00:00 Completed [facility] HIB 4 Dose Schedule 2001-03-06 00:00:00 Completed [facility] Hep B, Adol or Pedi Dosage 2001-03-06 00:00:00 Completed [facility] Polio (IPV/OPV) 2001-03-06 00:00:00 Completed [facility] Pneumococcal 7 Conjugate, PCV7 (Prevnar7) 2001-03-06 00:00:00 Completed [facility] DTAP 2001-03-06 00:00:00 Completed [facility] HIB 4 Dose Schedule 2001-03-06 00:00:00 Completed [facility] Hep B, Adol or Pedi Dosage 2001-03-06 00:00:00 Completed [facility] Polio (IPV/OPV) 2001-03-06 00:00:00 Completed [facility] Pneumococcal 7 Conjugate, PCV7 (Prevnar7) 2001-03-06 00:00:00 Completed [facility] DTAP 2001-03-06 00:00:00 Completed [facility] HIB 4 Dose Schedule 2001-03-06 00:00:00 Completed [facility] Hep B, Adol or Pedi Dosage 2001-03-06 00:00:00 Completed [facility] Polio (IPV/OPV) 2001-03-06 00:00:00 Completed [facility] Pneumococcal 7 Conjugate, PCV7 (Prevnar7) 2001-03-06 00:00:00 Completed [facility] DTAP 2001-03-06 00:00:00 Completed [facility] HIB 4 Dose Schedule 2001-03-06 00:00:00 Completed [facility] Polio (IPV/OPV) 2000 00:00:00 Completed [facility] Pneumococcal 7 Conjugate, PCV7 (Prevnar7) 2000 00:00:00 Completed [facility] DTAP 2000 00:00:00 Completed [facility] HIB 4 Dose Schedule 2000 00:00:00 Completed [facility] Polio (IPV/OPV) 2000 00:00:00 Completed [facility] Pneumococcal 7 Conjugate, PCV7 (Prevnar7) 2000 00:00:00 Completed [facility] DTAP 2000 00:00:00 Completed [facility] HIB 4 Dose Schedule 2000 00:00:00 Completed [facility] Polio (IPV/OPV) 2000 00:00:00 Completed [facility] Pneumococcal 7 Conjugate, PCV7 (Prevnar7) 2000 00:00:00 Completed [facility] DTAP 2000 00:00:00 Completed [facility] HIB 4 Dose Schedule 2000 00:00:00 Completed [facility] Polio (IPV/OPV) 2000 00:00:00 Completed [facility] Pneumococcal 7 Conjugate, PCV7 (Prevnar7) 2000 00:00:00 Completed [facility] DTAP 2000 00:00:00 Completed [facility] HIB 4 Dose Schedule 2000 00:00:00 Completed [facility] Polio (IPV/OPV) 2000 00:00:00 Completed [facility] Pneumococcal 7 Conjugate, PCV7 (Prevnar7) 2000 00:00:00 Completed [facility] DTAP 2000 00:00:00 Completed [facility] HIB 4 Dose Schedule 2000 00:00:00 Completed [facility] Polio (IPV/OPV) 2000 00:00:00 Completed [facility] Pneumococcal 7 Conjugate, PCV7 (Prevnar7) 2000 00:00:00 Completed [facility] DTAP 2000 00:00:00 Completed [facility] HIB 4 Dose Schedule 2000 00:00:00 Completed [facility] Polio (IPV/OPV) 2000 00:00:00 Completed [facility] Pneumococcal 7 Conjugate, PCV7 (Prevnar7) 2000 00:00:00 Completed [facility] DTAP 2000 00:00:00 Completed [facility] HIB 4 Dose Schedule 2000 00:00:00 Completed [facility] Polio (IPV/OPV) 2000 00:00:00 Completed [facility] Pneumococcal 7 Conjugate, PCV7 (Prevnar7) 2000 00:00:00 Completed [facility] DTAP 2000 00:00:00 Completed [facility] HIB 4 Dose Schedule 2000 00:00:00 Completed [facility] Polio (IPV/OPV) 2000 00:00:00 Completed [facility] Pneumococcal 7 Conjugate, PCV7 (Prevnar7) 2000 00:00:00 Completed [facility] DTAP 2000 00:00:00 Completed [facility] HIB 4 Dose Schedule 2000 00:00:00 Completed [facility] Polio (IPV/OPV) 2000 00:00:00 Completed [facility] Pneumococcal 7 Conjugate, PCV7 (Prevnar7) 2000 00:00:00 Completed [facility] DTAP 2000 00:00:00 [facility] [facility] H[facility] 4 Dose Schedule 2000 00:00:00 Completed [facility] Polio (IPV/OPV) 2000 00:00:00 Completed [facility] Pneumococcal 7 Conjugate, PCV7 (Prevnar7) 2000 00:00:00 Completed [facility] DTAP 2000 00:00:00 Completed [facility] HIB 4 Dose Schedule 2000 00:00:00 Completed [facility] Polio (IPV/OPV) 2000 00:00:00 Completed [facility] Pneumococcal 7 Conjugate, PCV7 (Prevnar7) 2000 00:00:00 Completed [facility] DTaP, Unspecified Formulation 2000 00:00:00 Completed [facility] IPV 2000 00:00:00 Completed [facility] DTAP 2000 00:00:00 Completed [facility] HIB 4 Dose Schedule 2000 00:00:00 Completed [facility] Polio (IPV/OPV) 2000 00:00:00 Completed [facility] Pneumococcal 7 Conjugate, PCV7 (Prevnar7) 2000 00:00:00 Completed [facility] DTaP, Unspecified Formulation 2000 00:00:00 Completed [facility] IPV 2000 00:00:00 Completed [facility] DTAP 2000 00:00:00 Completed [facility] HIB 4 Dose Schedule 2000 00:00:00 Completed [facility] Polio (IPV/OPV) 2000 00:00:00 Completed [facility] Pneumococcal 7 Conjugate, PCV7 (Prevnar7) 2000 00:00:00 Completed [facility] DTaP, Unspecified Formulation 2000 00:00:00 Completed [facility] IPV 2000 00:00:00 Completed [facility] DTAP 2000 00:00:00 Completed [facility] HIB 4 Dose Schedule 2000 00:00:00 Completed [facility] Polio (IPV/OPV) 2000 00:00:00 Completed [facility] Pneumococcal 7 Conjugate, PCV7 (Prevnar7) 2000 00:00:00 Completed [facility] DTaP, Unspecified Formulation 2000 00:00:00 Completed [facility] IPV 2000 00:00:00 Completed [facility] DTAP 2000 00:00:00 Completed [facility] HIB 4 Dose Schedule 2000 00:00:00 Completed [facility] Polio (IPV/OPV) 2000 00:00:00 Completed [facility] Pneumococcal 7 Conjugate, PCV7 (Prevnar7) 2000 00:00:00 Completed [facility] DTaP, Unspecified Formulation 2000 00:00:00 Completed [facility] IPV 2000 00:00:00 Completed [facility] DTAP 2000 00:00:00 Completed [facility] HIB 4 Dose Schedule 2000 00:00:00 Completed [facility] Polio (IPV/OPV) 2000 00:00:00 Completed [facility] Pneumococcal 7 Conjugate, PCV7 (Prevnar7) 2000 00:00:00 Completed [facility] DTaP, Unspecified Formulation 2000 00:00:00 Completed [facility] IPV 2000 00:00:00 Completed [facility] DTAP 2000 00:00:00 Completed [facility] HIB 4 Dose Schedule 2000 00:00:00 Completed [facility] Polio (IPV/OPV) 2000 00:00:00 Completed [facility] Pneumococcal 7 Conjugate, PCV7 (Prevnar7) 2000 00:00:00 Completed [facility] DTaP, Unspecified Formulation 2000 00:00:00 Completed [facility] IPV 2000 00:00:00 Completed [facility] DTAP 2000 00:00:00 Completed [facility] HIB 4 Dose Schedule 2000 00:00:00 Completed [facility] Polio (IPV/OPV) 2000 00:00:00 Completed [facility] Pneumococcal 7 Conjugate, PCV7 (Prevnar7) 2000 00:00:00 Completed [facility] DTaP, Unspecified Formulation 2000 00:00:00 Completed [facility] IPV 2000 00:00:00 Completed [facility] DTAP 2000 00:00:00 Completed [facility] HIB 4 Dose Schedule 2000 00:00:00 Completed [facility] Polio (IPV/OPV) 2000 00:00:00 Completed [facility] Pneumococcal 7 Conjugate, PCV7 (Prevnar7) 2000 00:00:00 Completed [facility] DTaP, Unspecified Formulation 2000 00:00:00 Completed [facility] IPV 2000 00:00:00 Completed [facility] DTAP 2000 00:00:00 Completed [facility] HIB 4 Dose Schedule 2000 00:00:00 Completed [facility] Polio (IPV/OPV) 2000 00:00:00 Completed [facility] Pneumococcal 7 Conjugate, PCV7 (Prevnar7) 2000 00:00:00 Completed [facility] DTaP, Unspecified Formulation 2000 00:00:00 Completed [facility] IPV 2000 00:00:00 Completed [facility] DTAP 2000 00:00:00 Completed [facility] HIB 4 Dose Schedule 2000 00:00:00 Completed Polio (IPV/OPV) 2000 00:00:00 Completed Pneumococcal 7 Conjugate, PCV7 (Prevnar7) 2000 00:00:00 Completed DTaP, Unspecified Formulation 2000 00:00:00 Completed IPV 2000 00:00:00 Completed DTAP 2000 00:00:00 Completed [facility] HIB 4 Dose Schedule 2000 00:00:00 Completed Polio (IPV/OPV) 2000 00:00:00 Completed Pneumococcal 7 Conjugate, PCV7 (Prevnar7) 2000 00:00:00 Completed DTaP, Unspecified Formulation 2000 00:00:00 Completed IPV 2000 00:00:00 Completed DTAP 2000 00:00:00 Completed [facility] HIB 4 Dose Schedule 2000 00:00:00 Completed [facility] Polio (IPV/OPV) 2000 00:00:00 Completed [facility] Pneumococcal 7 Conjugate, PCV7 (Prevnar7) 2000 00:00:00 Completed [facility] DTAP 2000 00:00:00 Completed [facility] HIB 4 Dose Schedule 2000 00:00:00 Completed [facility] Polio (IPV/OPV) 2000 00:00:00 Completed [facility] Pneumococcal 7 Conjugate, PCV7 (Prevnar7) 2000 00:00:00 Completed [facility] DTAP 2000 00:00:00 Completed [facility] HIB 4 Dose Schedule 2000 00:00:00 Completed [facility] Polio (IPV/OPV) 2000 00:00:00 Completed [facility] Pneumococcal 7 Conjugate, PCV7 (Prevnar7) 2000 00:00:00 Completed [facility] DTAP 2000 00:00:00 Completed [facility] HIB 4 Dose Schedule 2000 00:00:00 Completed [facility] DTAP 2000 00:00:00 Completed [facility] DTAP 2000 00:00:00 Completed [facility] DTAP 2000 00:00:00 Completed [facility] DTAP 2000 00:00:00 Completed [facility] DTAP 2000 00:00:00 Completed [facility] DTAP 2000 00:00:00 Completed [facility] DTAP 2000 00:00:00 Completed [facility] DTAP 2000 00:00:00 Completed [facility] DTAP 2000 00:00:00 Completed [facility] DTAP 2000 00:00:00 Completed [facility] DTAP 2000 00:00:00 Completed [facility] DTAP 2000 00:00:00 Completed [facility] DTAP 2000 00:00:00 Completed [facility] DTAP 2000 00:00:00 Completed [facility] DTAP 2000 00:00:00 Completed [facility] DTAP 2000 00:00:00 Completed [facility] DTAP 2000 00:00:00 Completed [facility] DTAP 2000 00:00:00 Completed [facility] DTAP 2000 00:00:00 Completed [facility] DTAP 2000 00:00:00 Completed [facility] DTAP 2000 00:00:00 Completed DTAP 2000 00:00:00 Completed DTAP 2000 00:00:00 Completed [facility] DTAP 2000 00:00:00 Completed [facility] DTAP 2000 00:00:00 Completed [facility] DTAP 2000 00:00:00 Completed [facility] Hep B, Adol or Pedi Dosage 2000 00:00:00 Completed [facility] Hep B, Adol or Pedi Dosage 2000 00:00:00 Completed [facility] Hep B, Adol or Pedi Dosage 2000 00:00:00 Completed [facility] Hep B, Adol or Pedi Dosage 2000 00:00:00 Completed [facility] Hep B, Adol or Pedi Dosage 2000 00:00:00 Completed [facility] Hep B, Adol or Pedi Dosage 2000 00:00:00 Completed [facility] Hep B, Adol or Pedi Dosage 2000 00:00:00 Completed [facility] Hep B, Adol or Pedi Dosage 2000 00:00:00 Completed [facility] Hep B, Adol or Pedi Dosage 2000 00:00:00 Completed [facility] Hep B, Adol or Pedi Dosage 2000 00:00:00 Completed [facility] Hep B, Adol or Pedi Dosage 2000 00:00:00 Completed [facility] Hep B, Adol or Pedi Dosage 2000 00:00:00 Completed [facility] Hep B, Adol or Pedi Dosage 2000 00:00:00 Completed [facility] Hep B, Adol or Pedi Dosage 2000 00:00:00 Completed [facility] Hep B, Adol or Pedi Dosage 2000 00:00:00 Completed [facility] Hep B, Adol or Pedi Dosage 2000 00:00:00 Completed [facility] Hep B, Adol or Pedi Dosage 2000 00:00:00 Completed [facility] Hep B, Adol or Pedi Dosage 2000 00:00:00 Completed [facility] Hep B, Adol or Pedi Dosage 2000 00:00:00 Completed [facility] Hep B, Adol or Pedi Dosage 2000 00:00:00 Completed [facility] Hep B, Adol or Pedi Dosage 2000 00:00:00 Completed Hep B, Adol or Pedi Dosage 2000 00:00:00 Completed Hep B, Adol or Pedi Dosage 2000 00:00:00 Completed [facility] Hep B, Adol or Pedi Dosage 2000 00:00:00 Completed [facility] Hep B, Adol or Pedi Dosage 2000 00:00:00 Completed [facility] Hep B, Adol or Pedi Dosage 2000 00:00:00 Completed [facility] TDAP Unknown Completed [facility] SARS-COV-2 COVID-19 PFIZER VACCINE Unknown Completed [facility] DTAP Unknown Completed [facility] HIB 4 Dose Schedule Unknown Completed [facility] HEPATITIS A Unknown Com[facility] Hep B, Adol or Pedi Dosage Unknown Completed [facility] HPV Unknown Completed [facility] Meningococcal Polysaccharide (groups A, C, Y and W-135) conjugate vaccine (MCV4P) Unknown Completed [facility] MMR Unknown Completed [facility] Polio (IPV/OPV) Unknown Completed [facility] Varicella (varivax)(chicken pox) Unknown Completed [facility] Pneumococcal 7 Conjugate, PCV7 (Prevnar7) Unknown Completed [facility] SARS-COV-2 COVID-19 VACCINE - (MODERNA) Unknown Completed [facility] DTaP, Unspecified Formulation Unknown Completed [facility] Hib-HbOC Unknown Completed [facility] IPV Unknown Completed [facility] TDAP Unknown Completed [facility] SARS-COV-2 COVID-19 PFIZER VACCINE Unknown Completed [facility] DTAP Unknown Completed [facility] HIB 4 Dose Schedule Unknown Completed [facility] HEPATITIS A Unknown Completed [facility] Hep B, Adol or Pedi Dosage Unknown Completed [facility] HPV Unknown Completed [facility] Meningococcal Polysaccharide (groups A, C, Y and W-135) conjugate vaccine (MCV4P) Unknown Completed [facility] MMR Unknown Completed [facility] Polio (IPV/OPV) Unknown Completed [facility] Varicella (varivax)(chicken pox) Unknown Completed [facility] Pneumococcal 7 Conjugate, PCV7 (Prevnar7) Unknown Completed [facility] SARS-COV-2 COVID-19 VACCINE - (MODERNA) Unknown Completed [facility] DTaP, Unspecified Formulation Unknown Completed [facility] Hib-HbOC Unknown Completed [facility] IPV Unknown Completed [facility] TDAP Unknown Completed [facility] SARS-COV-2 COVID-19 PFIZER VACCINE Unknown Completed [facility] DTAP Unknown Completed [facility] HIB 4 Dose Schedule Unknown Completed [facility] HEPATITIS A Unknown Completed [facility] Hep B, Adol or Pedi Dosage Unknown Completed [facility] HPV Unknown Completed [facility] Meningococcal Polysaccharide (groups A, C, Y and W-135) conjugate vaccine (MCV4P) Unknown Completed [facility] MMR Unknown Completed [facility] Polio (IPV/OPV) Unknown Completed [facility] Varicella (varivax)(chicken pox) Unknown Completed [facility] Pneumococcal 7 Conjugate, PCV7 (Prevnar7) Unknown Completed [facility] SARS-COV-2 COVID-19 VACCINE - (MODERNA) Unknown Completed [facility] DTaP, Unspecified Formulation Unknown Completed [facility] Hib-HbOC Unknown Completed [facility] IPV Unknown Completed [facility] TDAP Unknown Completed [facility] SARS-COV-2 COVID-19 PFIZER VACCINE Unknown Completed [facility] DTAP Unknown Completed [facility] HIB 4 Dose Schedule Unknown Completed [facility] HEPATITIS A Unknown Completed [facility] Hep B, Adol or Pedi Dosage Unknown Completed [facility] HPV Unknown Completed [facility] Meningococcal Polysaccharide (groups A, C, Y and W-135) conjugate vaccine (MCV4P) Unknown Completed [facility] MMR Unknown Completed [facility] Polio (IPV/OPV) Unknown Completed [facility] Varicella (varivax)(chicken pox) Unknown Completed [facility] Pneumococcal 7 Conjugate, PCV7 (Prevnar7) Unknown Completed [facility] SARS-COV-2 COVID-19 VACCINE - (MODERNA) Unknown Completed [facility] DTaP, Unspecified Formulation Unknown Completed [facility] Hib-HbOC Unknown Completed [facility] IPV Unknown Completed [facility] TDAP Unknown Completed [facility] SARS-COV-2 COVID-19 PFIZER VACCINE Unknown Completed [facility] DTAP Unknown Completed [facility] HIB 4 Dose Schedule Unknown Completed [facility] HEPATITIS A Unknown Completed [facility] Hep B, Adol or Pedi Dosage Unknown Completed [facility] HPV Unknown Completed [facility] Meningococcal Polysaccharide (groups A, C, Y and W-135) conjugate vaccine (MCV4P) Unknown Completed [facility] MMR Unknown Completed [facility] Polio (IPV/OPV) Unknown Completed [facility] Varicella (varivax)(chicken pox) Unknown Completed [facility] Pneumococcal 7 Conjugate, PCV7 (Prevnar7) Unknown Completed [facility] SARS-COV-2 COVID-19 VACCINE - (MODERNA) Unknown Completed [facility] DTaP, Unspecified Formulation Unknown Completed [facility] Hib-HbOC Unknown Completed [facility] IPV Unknown Completed [facility] Hib-HbOC Unknown Completed [facility] TDAP Unknown Completed [facility] SARS-COV-2 COVID-19 PFIZER VACCINE Unknown Completed [facility] DTAP Unknown Completed [facility] HIB 4 Dose Schedule Unknown Completed [facility] HEPATITIS A Unknown Completed [facility] Hep B, Adol or Pedi Dosage Unknown Completed [facility] HPV Unknown Completed [facility] Meningococcal Polysaccharide (groups A, C, Y and W-135) conjugate vaccine (MCV4P) Unknown Completed [facility] MMR Unknown Completed [facility] Polio (IPV/OPV) Unknown Completed [facility] Varicella (varivax)(chicken pox) Unknown Completed [facility] Pneumococcal 7 Conjugate, PCV7 (Prevnar7) Unknown Completed [facility] SARS-COV-2 COVID-19 VACCINE - (MODERNA) Unknown Completed [facility] DTaP, Unspecified Formulation Unknown Completed [facility] IPV Unknown Completed [facility] TDAP Unknown Completed [facility] SARS-COV-2 COVID-19 PFIZER VACCINE Unknown Completed [facility] DTAP Unknown Completed [facility] HIB 4 Dose Schedule Unknown Completed [facility] HEPATITIS A Unknown Completed [facility] Hep B, Adol or Pedi Dosage Unknown Completed [facility] HPV Unknown Completed [facility] Meningococcal Polysaccharide (groups A, C, Y and W-135) conjugate vaccine (MCV4P) Unknown Completed [facility] MMR Unknown Completed [facility] Polio (IPV/OPV) Unknown Completed [facility] Varicella (varivax)(chicken pox) Unknown Completed [facility] Pneumococcal 7 Conjugate, PCV7 (Prevnar7) Unknown Completed [facility] SARS-COV-2 COVID-19 VACCINE - (MODERNA) Unknown Completed [facility] DTaP, Unspecified Formulation Unknown Completed [facility] Hib-HbOC Unknown Completed [facility] IPV Unknown Completed [facility] TDAP Unknown Completed [facility] SARS-COV-2 COVID-19 PFIZER VACCINE Unknown Completed [facility] DTAP Unknown Completed [facility] HIB 4 Dose Schedule Unknown Completed [facility] HEPATITIS A Unknown Completed [facility] Hep B, Adol or Pedi Dosage Unknown Completed [facility] HPV Unknown Completed [facility] Meningococcal Polysaccharide (groups A, C, Y and W-135) conjugate vaccine (MCV4P) Unknown Completed [facility] MMR Unknown Completed [facility] Polio (IPV/OPV) Unknown Completed [facility] Varicella (varivax)(chicken pox) Unknown Completed [facility] Pneumococcal 7 Conjugate, PCV7 (Prevnar7) Unknown Completed [facility] SARS-COV-2 COVID-19 VACCINE - (MODERNA) Unknown Completed [facility] DTaP, Unspecified Formulation Unknown Completed [facility] Hib-HbOC Unknown Completed [facility] IPV Unknown Completed [facility] TDAP Unknown Completed [facility] SARS-COV-2 COVID-19 PFIZER VACCINE Unknown Completed [facility] DTAP Unknown Completed [facility] HIB 4 Dose Schedule Unknown Completed [facility] HEPATITIS A Unknown Completed [facility] Hep B, Adol or Pedi Dosage Unknown Completed [facility] HPV Unknown Completed [facility] Meningococcal Polysaccharide (groups A, C, Y and W-135) conjugate vaccine (MCV4P) Unknown Completed [facility] MMR Unknown Completed [facility] Polio (IPV/OPV) Unknown Completed [facility] Varicella (varivax)(chicken pox) Unknown Completed [facility] Pneumococcal 7 Conjugate, PCV7 (Prevnar7) Unknown Completed [facility] SARS-COV-2 COVID-19 VACCINE - (MODERNA) Unknown Completed [facility] DTaP, Unspecified Formulation Unknown Completed [facility] Hib-HbOC Unknown Completed [facility] IPV Unknown Completed [facility] TDAP Unknown Completed [facility] SARS-COV-2 COVID-19 PFIZER VACCINE Unknown Completed [facility] DTAP Unknown Completed [facility] HIB 4 Dose Schedule Unknown Completed [facility] HEPATITIS A Unknown Completed [facility] Hep B, Adol or Pedi Dosage Unknown Completed [facility] HPV Unknown Completed [facility] Meningococcal Polysaccharide (groups A, C, Y and W-135) conjugate vaccine (MCV4P) Unknown Completed [facility] MMR Unknown Completed [facility] Polio (IPV/OPV) Unknown Completed [facility] Varicella (varivax)(chicken pox) Unknown Completed [facility] Pneumococcal 7 Conjugate, PCV7 (Prevnar7) Unknown Completed [facility] SARS-COV-2 COVID-19 VACCINE - (MODERNA) Unknown Completed [facility] DTaP, Unspecified Formulation Unknown Completed [facility] Hib-HbOC Unknown Completed [facility] IPV Unknown Completed [facility] Hib-HbOC Unknown Completed [facility] TDAP Unknown Completed [facility] SARS-COV-2 COVID-19 PFIZER VACCINE Unknown Completed [facility] DTAP Unknown Completed [facility] HIB 4 Dose Schedule Unknown Completed [facility] HEPATITIS A Unknown Completed [facility] Hep B, Adol or Pedi Dosage Unknown Completed [facility] HPV Unknown Completed [facility] Meningococcal Polysaccharide (groups A, C, Y and W-135) conjugate vaccine (MCV4P) Unknown Completed [facility] MMR Unknown Completed [facility] Polio (IPV/OPV) Unknown Completed [facility] Varicella (varivax)(chicken pox) Unknown Completed [facility] Pneumococcal 7 Conjugate, PCV7 (Prevnar7) Unknown Completed [facility] SARS-COV-2 COVID-19 VACCINE - (MODERNA) Unknown Completed [facility] DTaP, Unspecified Formulation Unknown Completed [facility] IPV Unknown Completed [facility] TDAP Unknown Completed [facility] SARS-COV-2 COVID-19 PFIZER VACCINE Unknown Completed [facility] DTAP Unknown Completed [facility] HIB 4 Dose Schedule Unknown Completed [facility] HEPATITIS A Unknown Completed [facility] Hep B, Adol or Pedi Dosage Unknown Completed [facility] HPV Unknown Completed [facility] Meningococcal Polysaccharide (groups A, C, Y and W-135) conjugate vaccine (MCV4P) Unknown Completed [facility] MMR Unknown Completed [facility] Polio (IPV/OPV) Unknown Completed [facility] Varicella (varivax)(chicken pox) Unknown Completed [facility] Pneumococcal 7 Conjugate, PCV7 (Prevnar7) Unknown Completed [facility] SARS-COV-2 COVID-19 VACCINE - (MODERNA) Unknown Completed [facility] DTaP, Unspecified Formulation Unknown Completed [facility] Hib-HbOC Unknown Completed [facility] IPV Unknown Completed [facility] Hib-HbOC Unknown Completed [facility] TDAP Unknown Completed [facility] SARS-COV-2 COVID-19 PFIZER VACCINE Unknown Completed [facility] DTAP Unknown Completed [facility] HIB 4 Dose Schedule Unknown Completed [facility] HEPATITIS A Unknown Completed [facility] Hep B, Adol or Pedi Dosage Unknown Completed [facility] HPV Unknown Completed [facility] Meningococcal Polysaccharide (groups A, C, Y and W-135) conjugate vaccine (MCV4P) Unknown Completed [facility] MMR Unknown Completed [facility] Polio (IPV/OPV) Unknown Completed [facility] Varicella (varivax)(chicken pox) Unknown Completed [facility] Pneumococcal 7 Conjugate, PCV7 (Prevnar7) Unknown Completed [facility] SARS-COV-2 COVID-19 VACCINE - (MODERNA) Unknown Completed [facility] DTaP, Unspecified Formulation Unknown Completed [facility] IPV Unknown Completed [facility] TDAP Unknown Completed [facility] SARS-COV-2 COVID-19 PFIZER VACCINE Unknown Completed [facility] DTAP Unknown Completed [facility] HIB 4 Dose Schedule Unknown Completed [facility] HEPATITIS A Unknown Completed [facility] Hep B, Adol or Pedi Dosage Unknown Completed [facility] HPV Unknown Completed [facility] Meningococcal Polysaccharide (groups A, C, Y and W-135) conjugate vaccine (MCV4P) Unknown Completed [facility] MMR Unknown Completed [facility] Polio (IPV/OPV) Unknown Completed [facility] Varicella (varivax)(chicken pox) Unknown Completed [facility] Pneumococcal 7 Conjugate, PCV7 (Prevnar7) Unknown Completed [facility] SARS-COV-2 COVID-19 VACCINE - (MODERNA) Unknown Completed [facility] DTaP, Unspecified Formulation Unknown Completed [facility] Hib-HbOC Unknown Completed [facility] IPV Unknown Completed [facility] TDAP Unknown Completed [facility] SARS-COV-2 COVID-19 PFIZER VACCINE Unknown Completed [facility] DTAP Unknown Completed [facility] HIB 4 Dose Schedule Unknown Completed [facility] HEPATITIS A Unknown Completed [facility] Hep B, Adol or Pedi Dosage Unknown Completed [facility] HPV Unknown Completed [facility] Meningococcal Polysaccharide (groups A, C, Y and W-135) conjugate vaccine (MCV4P) Unknown Completed [facility] MMR Unknown Completed [facility] Polio (IPV/OPV) Unknown Completed [facility] Varicella (varivax)(chicken pox) Unknown Completed [facility] Pneumococcal 7 Conjugate, PCV7 (Prevnar7) Unknown Completed [facility] SARS-COV-2 COVID-19 VACCINE - (MODERNA) Unknown Completed [facility] DTaP, Unspecified Formulation Unknown Completed [facility] Hib-HbOC Unknown Completed [facility] IPV Unknown Completed [facility] Hib-HbOC Unknown Completed [facility] TDAP Unknown Completed [facility] SARS-COV-2 COVID-19 PFIZER VACCINE Unknown Completed [facility] DTAP Unknown Completed [facility] HIB 4 Dose Schedule Unknown Completed [facility] HEPATITIS A Unknown Completed [facility] Hep B, Adol or Pedi Dosage Unknown Completed [facility] HPV Unknown Completed [facility] Meningococcal Polysaccharide (groups A, C, Y and W-135) conjugate vaccine (MCV4P) Unknown Completed [facility] MMR Unknown Completed [facility] Polio (IPV/OPV) Unknown Completed [facility] Varicella (varivax)(chicken pox) Unknown Completed [facility] Pneumococcal 7 Conjugate, PCV7 (Prevnar7) Unknown Completed [facility] SARS-COV-2 COVID-19 VACCINE - (MODERNA) Unknown Completed [facility] DTaP, Unspecified Formulation Unknown Completed [facility] IPV Unknown Completed [facility] Hib-HbOC Unknown Completed [facility] TDAP Unknown Completed [facility] SARS-COV-2 COVID-19 PFIZER VACCINE Unknown Completed [facility] DTAP Unknown Completed [facility] HIB 4 Dose Schedule Unknown Completed [facility] HEPATITIS A Unknown Completed [facility] Hep B, Adol or Pedi Dosage Unknown Completed [facility] HPV Unknown Completed [facility] Meningococcal Polysaccharide (groups A, C, Y and W-135) conjugate vaccine (MCV4P) Unknown Completed [facility] MMR Unknown Completed [facility] Polio (IPV/OPV) Unknown Completed [facility] Varicella (varivax)(chicken pox) Unknown Completed [facility] Pneumococcal 7 Conjugate, PCV7 (Prevnar7) Unknown Completed [facility] SARS-COV-2 COVID-19 VACCINE - (MODERNA) Unknown Completed [facility] DTaP, Unspecified Formulation Unknown Completed [facility] IPV Unknown Completed [facility] Hib-HbOC Unknown Completed [facility] TDAP Unknown Completed [facility] SARS-COV-2 COVID-19 PFIZER VACCINE Unknown Completed [facility] DTAP Unknown Completed [facility] HIB 4 Dose Schedule Unknown Completed [facility] HEPATITIS A Unknown Completed [facility] Hep B, Adol or Pedi Dosage Unknown Completed [facility] HPV Unknown Completed [facility] Meningococcal Polysaccharide (groups A, C, Y and W-135) conjugate vaccine (MCV4P) Unknown Completed [facility] MMR Unknown Completed [facility] Polio (IPV/OPV) Unknown Completed [facility] Varicella (varivax)(chicken pox) Unknown Completed [facility] Pneumococcal 7 Conjugate, PCV7 (Prevnar7) Unknown Completed [facility] SARS-COV-2 COVID-19 VACCINE - (MODERNA) Unknown Completed [facility] DTaP, Unspecified Formulation Unknown Completed [facility] IPV Unknown Completed [facility] TDAP Unknown Completed [facility] SARS-COV-2 COVID-19 PFIZER VACCINE Unknown Completed [facility] DTAP Unknown Completed [facility] HIB 4 Dose Schedule Unknown Completed [facility] HEPATITIS A Unknown Completed [facility] Hep B, Adol or Pedi Dosage Unknown Completed [facility] HPV Unknown Completed [facility] Meningococcal Polysaccharide (groups A, C, Y and W-135) conjugate vaccine (MCV4P) Unknown Completed [facility] MMR Unknown Completed [facility] Polio (IPV/OPV) Unknown Completed [facility] Varicella (varivax)(chicken pox) Unknown Completed [facility] Pneumococcal 7 Conjugate, PCV7 (Prevnar7) Unknown Completed [facility] SARS-COV-2 COVID-19 VACCINE - (MODERNA) Unknown Completed [facility] DTaP, Unspecified Formulation Unknown Completed [facility] Hib-HbOC Unknown Completed [facility] IPV Unknown Completed [facility] TDAP Unknown Completed [facility] SARS-COV-2 COVID-19 PFIZER VACCINE Unknown Completed [facility] DTAP Unknown Completed [facility] HIB 4 Dose Schedule Unknown Completed [facility] HEPATITIS A Unknown Completed [facility] Hep B, Adol or Pedi Dosage Unknown Completed [facility] HPV Unknown Completed [facility] Meningococcal Polysaccharide (groups A, C, Y and W-135) conjugate vaccine (MCV4P) Unknown Completed [facility] MMR Unknown Completed [facility] Polio (IPV/OPV) Unknown Completed [facility] Varicella (varivax)(chicken pox) Unknown Completed [facility] Pneumococcal 7 Conjugate, PCV7 (Prevnar7) Unknown Completed [facility] SARS-COV-2 COVID-19 VACCINE - (MODERNA) Unknown Completed [facility] DTaP, Unspecified Formulation Unknown Completed [facility] Hib-HbOC Unknown Completed [facility] IPV Unknown Completed [facility] TDAP Unknown Completed [facility] SARS-COV-2 COVID-19 PFIZER VACCINE Unknown Completed [facility] DTAP Unknown Completed [facility] HIB 4 Dose Schedule Unknown Completed [facility] HEPATITIS A Unknown [facility] Hep B, Adol or Pedi Dosage Unknown Completed [facility] HPV Unknown Completed [facility] Meningococcal Polysaccharide (groups A, C, Y and W-135) conjugate vaccine (MCV4P) Unknown Completed [facility] MMR Unknown Completed [facility] Polio (IPV/OPV) Unknown Completed [facility] Varicella (varivax)(chicken pox) Unknown Completed [facility] Pneumococcal 7 Conjugate, PCV7 (Prevnar7) Unknown Completed [facility] SARS-COV-2 COVID-19 VACCINE - (MODERNA) Unknown Completed [facility] DTaP, Unspecified Formulation Unknown Completed [facility] Hib-HbOC Unknown Completed [facility] IPV Unknown Completed [facility] TDAP Unknown Completed [facility] SARS-COV-2 COVID-19 PFIZER VACCINE Unknown Completed [facility] DTAP Unknown Completed [facility] HIB 4 Dose Schedule Unknown Completed [facility] HEPATITIS A Unknown Completed [facility] Hep B, Adol or Pedi Dosage Unknown Completed [facility] HPV Unknown Completed [facility] Meningococcal Polysaccharide (groups A, C, Y and W-135) conjugate vaccine (MCV4P) Unknown Completed [facility] MMR Unknown Completed [facility] Polio (IPV/OPV) Unknown Completed [facility] Varicella (varivax)(chicken pox) Unknown Completed [facility] Pneumococcal 7 Conjugate, PCV7 (Prevnar7) Unknown Completed [facility] SARS-COV-2 COVID-19 VACCINE - (MODERNA) Unknown Completed [facility] DTaP, Unspecified Formulation Unknown Completed [facility] Hib-HbOC Unknown Completed [facility] IPV Unknown Completed [facility] TDAP Unknown Completed [facility] SARS-COV-2 COVID-19 PFIZER VACCINE Unknown Completed [facility] DTAP Unknown Completed [facility] HIB 4 Dose Schedule Unknown Completed [facility] HEPATITIS A Unknown Completed [facility] Hep B, Adol or Pedi Dosage Unknown Completed [facility] HPV Unknown Completed [facility] Meningococcal Polysaccharide (groups A, C, Y and W-135) conjugate vaccine (MCV4P) Unknown Completed [facility] MMR Unknown Completed [facility] Polio (IPV/OPV) Unknown Completed [facility] Varicella (varivax)(chicken pox) Unknown Completed [facility] Pneumococcal 7 Conjugate, PCV7 (Prevnar7) Unknown Completed [facility] SARS-COV-2 COVID-19 VACCINE - (MODERNA) Unknown Completed [facility] DTaP, Unspecified Formulation Unknown Completed [facility] Hib-HbOC Unknown Completed [facility] IPV Unknown Completed [facility] Hib-HbOC Unknown Completed [facility] TDAP Unknown Completed [facility] SARS-COV-2 COVID-19 PFIZER VACCINE Unknown Completed [facility] DTAP Unknown Completed [facility] HIB 4 Dose Schedule Unknown Completed [facility] HEPATITIS A Unknown Completed [facility] Hep B, Adol or Pedi Dosage Unknown Completed [facility] HPV Unknown Completed [facility] Meningococcal Polysaccharide (groups A, C, Y and W-135) conjugate vaccine (MCV4P) Unknown Completed [facility] MMR Unknown Completed [facility] Polio (IPV/OPV) Unknown Completed [facility] Varicella (varivax)(chicken pox) Unknown Completed [facility] Pneumococcal 7 Conjugate, PCV7 (Prevnar7) Unknown Completed [facility] SARS-COV-2 COVID-19 VACCINE - (MODERNA) Unknown Completed [facility] DTaP, Unspecified Formulation Unknown Completed [facility] IPV Unknown Completed [facility] TDAP Unknown Completed [facility] SARS-COV-2 COVID-19 PFIZER VACCINE Unknown Completed [facility] DTAP Unknown Completed [facility] HIB 4 Dose Schedule Unknown Completed [facility] HEPATITIS A Unknown Completed [facility] Hep B, Adol or Pedi Dosage Unknown Completed [facility] HPV Unknown Completed [facility] Meningococcal Polysaccharide (groups A, C, Y and W-135) conjugate vaccine (MCV4P) Unknown Completed [facility] MMR Unknown Completed [facility] Polio (IPV/OPV) Unknown Completed [facility] Varicella (varivax)(chicken pox) Unknown Completed [facility] Pneumococcal 7 Conjugate, PCV7 (Prevnar7) Unknown Completed [facility] SARS-COV-2 COVID-19 VACCINE - (MODERNA) Unknown Completed [facility] DTaP, Unspecified Formulation Unknown Completed [facility] Hib-HbOC Unknown Completed [facility] IPV Unknown Completed [facility] TDAP Unknown Completed [facility] SARS-COV-2 COVID-19 PFIZER VACCINE Unknown Completed [facility] DTAP Unknown Completed [facility] HIB 4 Dose Schedule Unknown Completed [facility] HEPATITIS A Unknown Completed [facility] Hep B, Adol or Pedi Dosage Unknown Completed [facility] HPV Unknown Completed [facility] Meningococcal Polysaccharide (groups A, C, Y and W-135) conjugate vaccine (MCV4P) Unknown Completed [facility] MMR Unknown Completed [facility] Polio (IPV/OPV) Unknown Completed [facility] Varicella (varivax)(chicken pox) Unknown Completed [facility] Pneumococcal 7 Conjugate, PCV7 (Prevnar7) Unknown Completed [facility] SARS-COV-2 COVID-19 VACCINE - (MODERNA) Unknown Completed [facility] DTaP, Unspecified Formulation Unknown Completed [facility] Hib-HbOC Unknown Completed [facility] IPV Unknown Completed [facility] TDAP Unknown Completed [facility] SARS-COV-2 COVID-19 PFIZER VACCINE Unknown Completed [facility] DTAP Unknown Completed [facility] HIB 4 Dose Schedule Unknown Completed [facility] HEPATITIS A Unknown Completed [facility] Hep B, Adol or Pedi Dosage Unknown Completed [facility] HPV Unknown Completed [facility] Meningococcal Polysaccharide (groups A, C, Y and W-135) conjugate vaccine (MCV4P) Unknown Completed [facility] MMR Unknown Completed [facility] Polio (IPV/OPV) Unknown Completed [facility] Varicella (varivax)(chicken pox) Unknown Completed [facility] Pneumococcal 7 Conjugate, PCV7 (Prevnar7) Unknown Completed [facility] SARS-COV-2 COVID-19 VACCINE - (MODERNA) Unknown Completed [facility] DTaP, Unspecified Formulation Unknown Completed [facility] Hib-HbOC Unknown Completed [facility] IPV Unknown Completed [facility] TDAP Unknown Completed [facility] SARS-COV-2 COVID-19 PFIZER VACCINE Unknown Completed [facility] DTAP Unknown Completed [facility] HIB 4 Dose Schedule Unknown Completed [facility] HEPATITIS A Unknown Completed [facility] Hep B, Adol or Pedi Dosage Unknown Completed [facility] HPV Unknown Completed [facility] Meningococcal Polysaccharide (groups A, C, Y and W-135) conjugate vaccine (MCV4P) Unknown Completed [facility] MMR Unknown Completed [facility] Polio (IPV/OPV) Unknown Completed [facility] Varicella (varivax)(chicken pox) Unknown Completed [facility] Pneumococcal 7 Conjugate, PCV7 (Prevnar7) Unknown Completed [facility] SARS-COV-2 COVID-19 VACCINE - (MODERNA) Unknown Completed [facility] DTaP, Unspecified Formulation Unknown Completed [facility] Hib-HbOC Unknown Completed [facility] IPV Unknown Completed [facility] TDAP Unknown Completed [facility] SARS-COV-2 COVID-19 PFIZER VACCINE Unknown Completed [facility] DTAP Unknown Completed [facility] HIB 4 Dose Schedule Unknown Completed [facility] HEPATITIS A Unknown Completed [facility] Hep B, Adol or Pedi Dosage Unknown Completed [facility] HPV Unknown Completed [facility] Meningococcal Polysaccharide (groups A, C, Y and W-135) conjugate vaccine (MCV4P) Unknown Completed [facility] MMR Unknown Completed [facility] Polio (IPV/OPV) Unknown Completed [facility] Varicella (varivax)(chicken pox) Unknown Completed [facility] Pneumococcal 7 Conjugate, PCV7 (Prevnar7) Unknown Completed [facility] SARS-COV-2 COVID-19 VACCINE - (MODERNA) Unknown Completed [facility] DTaP, Unspecified Formulation Unknown Completed [facility] Hib-HbOC Unknown Completed [facility] IPV Unknown Completed [facility] TDAP Unknown Completed [facility] SARS-COV-2 COVID-19 PFIZER VACCINE Unknown Completed [facility] DTAP Unknown Completed [facility] HIB 4 Dose Schedule Unknown Completed [facility] HEPATITIS A Unknown Completed [facility] Hep B, Adol or Pedi Dosage Unknown Completed [facility] HPV Unknown Completed [facility] Meningococcal Polysaccharide (groups A, C, Y and W-135) conjugate vaccine (MCV4P) Unknown Completed [facility] MMR Unknown Completed [facility] Polio (IPV/OPV) Unknown Completed [facility] Varicella (varivax)(chicken pox) Unknown Completed [facility] Pneumococcal 7 Conjugate, PCV7 (Prevnar7) Unknown Completed [facility] SARS-COV-2 COVID-19 VACCINE - (MODERNA) Unknown Completed [facility] DTaP, Unspecified Formulation Unknown Completed [facility] Hib-HbOC Unknown Completed [facility] IPV Unknown Completed [facility] TDAP Unknown Completed [facility] SARS-COV-2 COVID-19 PFIZER VACCINE Unknown Completed [facility] DTAP Unknown Completed [facility] HIB 4 Dose Schedule Unknown Completed [facility] HEPATITIS A Unknown Completed [facility] Hep B, Adol or Pedi Dosage Unknown Completed [facility] HPV Unknown Completed [facility] Meningococcal Polysaccharide (groups A, C, Y and W-135) conjugate vaccine (MCV4P) Unknown Completed [facility] MMR Unknown Completed [facility] Polio (IPV/OPV) Unknown Completed [facility] Varicella (varivax)(chicken pox) Unknown Completed [facility] Pneumococcal 7 Conjugate, PCV7 (Prevnar7) Unknown Completed [facility] SARS-COV-2 COVID-19 VACCINE - (MODERNA) Unknown Completed [facility] DTaP, Unspecified Formulation Unknown Completed [facility] Hib-HbOC Unknown Completed [facility] IPV Unknown Completed [facility] TDAP Unknown Completed [facility] SARS-COV-2 COVID-19 PFIZER VACCINE Unknown Completed [facility] DTAP Unknown Completed [facility] HIB 4 Dose Schedule Unknown Completed [facility] HEPATITIS A Unknown Completed [facility] Hep B, Adol or Pedi Dosage Unknown Completed [facility] HPV Unknown Completed [facility] Meningococcal Polysaccharide (groups A, C, Y and W-135) conjugate vaccine (MCV4P) Unknown Completed [facility] MMR Unknown Completed [facility] Polio (IPV/OPV) Unknown Completed [facility] Varicella (varivax)(chicken pox) Unknown Completed [facility] Pneumococcal 7 Conjugate, PCV7 (Prevnar7) Unknown Completed [facility] SARS-COV-2 COVID-19 VACCINE - (MODERNA) Unknown Completed [facility] DTaP, Unspecified Formulation Unknown Completed [facility] Hib-HbOC Unknown Completed [facility] IPV Unknown Completed [facility] TDAP Unknown Completed [facility] SARS-COV-2 COVID-19 PFIZER VACCINE Unknown Completed [facility] DTAP Unknown Completed [facility] HIB 4 Dose Schedule Unknown Completed [facility] HEPATITIS A Unknown Completed [facility] Hep B, Adol or Pedi Dosage Unknown Completed [facility] HPV Unknown Completed [facility] Meningococcal Polysaccharide (groups A, C, Y and W-135) conjugate vaccine (MCV4P) Unknown Completed [facility] MMR Unknown Completed [facility] Polio (IPV/OPV) Unknown Completed [facility] Varicella (varivax)(chicken pox) Unknown Completed [facility] Pneumococcal 7 Conjugate, PCV7 (Prevnar7) Unknown Completed [facility] SARS-COV-2 COVID-19 VACCINE - (MODERNA) Unknown Completed [facility] [facility] DTaP, Unspecified Formulation Unknown Completed [facility] Hib-HbOC Unknown Completed [facility] IPV Unknown Completed [facility] TDAP Unknown Completed [facility] SARS-COV-2 COVID-19 PFIZER VACCINE Unknown Completed [facility] DTAP Unknown Completed [facility] HIB 4 Dose Schedule Unknown Completed [facility] HEPATITIS A Unknown Completed [facility] Hep B, Adol or Pedi Dosage Unknown Completed [facility] HPV Unknown Completed [facility] Meningococcal Polysaccharide (groups A, C, Y and W-135) conjugate vaccine (MCV4P) Unknown Completed [facility] MMR Unknown Completed [facility] Polio (IPV/OPV) Unknown Completed [facility] Varicella (varivax)(chicken pox) Unknown Completed [facility] Pneumococcal 7 Conjugate, PCV7 (Prevnar7) Unknown Completed [facility] SARS-COV-2 COVID-19 VACCINE - (MODERNA) Unknown Completed [facility] DTaP, Unspecified Formulation Unknown Completed [facility] Hib-HbOC Unknown Completed [facility] IPV Unknown Completed [facility] Vital Signs Vital Name Observation Time Observation Value Comments S ource Systolic blood pressure 2024-10-01 19:11:00 115 mm[Hg] [facility] Diastolic blood pressure 2024-10-01 19:11:00 76 mm[Hg] [facility] Heart rate 2024-10-01 19:11:00 99 /min [facility] Body temperature 2024-10-01 19:11:00 37 Es [facility] Body height 2024-10-01 19:11:00 172.7 cm [facility] Body weight 2024-10-01 19:11:00 98.793 kg [facility] BMI 2024-10-01 19:11:00 33.12 kg/m2 [facility] Oxygen saturation in Arterial blood by Pulse oximetry 2024-10-01 19:11:00 97 /min [facility] Systolic blood pressure 2024-05-23 18:19:00 116 mm[Hg] [facility] Diastolic blood pressure 2024-05-23 18:19:00 77 mm[Hg] [facility] Heart rate 2024-05-23 18:19:00 100 /min [facility] Body temperature 2024-05-23 18:19:00 35.78 Es [facility] Respiratory rate 2024-05-23 18:19:00 18 /min [facility] Body height 2024-05-23 18:19:00 170.2 cm [facility] Body weight 2024-05-23 18:19:00 95.029 kg [facility] BMI 2024-05-23 18:19:00 32.81 kg/m2 [facility] Systolic blood pressure 2024-01-08 16:09:00 113 mm[Hg] [facility] Diastolic blood pressure 2024-01-08 16:09:00 72 mm[Hg] [facility] Heart rate 2024-01-08 16:08:00 85 /min [facility] Body temperature 2024-01-08 16:08:00 36.89 Es [facility] Respiratory rate 2024-01-08 16:08:00 20 /min [facility] Body height 2024-01-08 16:08:00 170.2 cm [facility] Body weight 2024-01-08 16:08:00 97.705 kg [facility] BMI 2024-01-08 16:08:00 33.74 kg/m2 [facility] Oxygen saturation in Arterial blood by Pulse oximetry 2024-01-08 16:08:00 99 /min [facility] Systolic blood pressure 2023-12-25 20:04:00 128 mm[Hg] [facility] Diastolic blood pressure 2023-12-25 20:04:00 88 mm[Hg] [facility] Heart rate 2023-12-25 20:04:00 92 /min [facility] 2023-12-25 20:04:00 18 /min [facility] Body height 2023-12-25 20:04:00 170.2 cm [facility] Body weight 2023-12-25 20:04:00 97.614 kg [facility] BMI 2023-12-25 20:04:00 33.71 kg/m2 [facility] Oxygen saturation in Arterial blood by Pulse oximetry 2023-12-25 20:04:00 95 /min [facility] Systolic blood pressure 2023-12-17 19:13:00 126 mm[Hg] [facility] Diastolic blood pressure 2023-12-17 19:13:00 89 mm[Hg] [facility] Heart rate 2023-12-17 19:13:00 111 /min [facility] Body temperature 2023-12-17 19:13:00 36.39 Es [facility] Respiratory rate 2023-12-17 19:13:00 18 /min [facility] Body height 2023-12-17 19:13:00 170.2 cm [facility] Body weight 2023-12-17 19:13:00 96.979 kg [facility] BMI 2023-12-17 19:13:00 33.49 kg/m2 [facility] Systolic blood pressure 2023-12-04 16:04:00 129 mm[Hg] [facility] Diastolic blood pressure 2023-12-04 16:04:00 80 mm[Hg] [facility] Heart rate 2023-12-04 16:04:00 75 /min [facility] Body height 2023-12-04 16:04:00 170.2 cm [facility] Body weight 2023-12-04 16:04:00 97.478 kg [facility] BMI 2023-12-04 16:04:00 33.66 kg/m2 [facility] Oxygen saturation in Arterial blood by Pulse oximetry 2023-12-04 16:04:00 100 /min [facility] Systolic blood pressure 2023-11-30 19:14:00 139 mm[Hg] [facility] Diastolic blood pressure 2023-11-30 19:14:00 97 mm[Hg] [facility] Heart rate 2023-11-30 19:14:00 98 /min [facility] Oxygen saturation in Arterial blood by Pulse oximetry 2023-11-30 19:11:00 94 /min [facility] Body temperature 2023-11-30 18:32:00 37.17 Es [facility] Respiratory rate 2023-11-30 18:32:00 20 /min [facility] Body height 2023-11-30 18:32:00 170.2 cm [facility] Body weight 2023-11-30 18:32:00 95.709 kg [facility] BMI 2023-11-30 18:32:00 33.05 kg/m2 [facility] Systolic blood pressure 2023-11-19 18:22:00 113 mm[Hg] [facility] Diastolic blood pressure 2023-11-19 18:22:00 75 mm[Hg] [facility] Heart rate 2023-11-19 18:22:00 102 /min [facility] Body temperature 2023-11-19 18:22:00 36.22 Es [facility] Respiratory rate 2023-11-19 18:22:00 18 /min [facility] Body height 2023-11-19 18:22:00 170.2 cm [facility] Body weight 2023-11-19 18:22:00 96.208 kg [facility] BMI 2023-11-19 18:22:00 33.22 kg/m2 [facility] Systolic blood pressure 2023-11-15 16:11:00 124 mm[Hg] [facility] Diastolic blood pressure 2023-11-15 16:11:00 82 mm[Hg] [facility] Heart rate 2023-11-15 15:40:00 72 /min [facility] Body temperature 2023-11-15 15:40:00 36.94 Es [facility] Body height 2023-11-15 15:40:00 170.2 cm [facility] Body weight 2023-11-15 15:40:00 95.255 kg [facility] BMI 2023-11-15 15:40:00 32.89 kg/m2 [facility] Oxygen saturation in Arterial blood by Pulse oximetry 2023-11-15 15:40:00 100 /min [facility] Systolic blood pressure 2023-10-22 18:12:00 129 mm[Hg] [facility] Diastolic blood pressure 2023-10-22 18:12:00 81 mm[Hg] [facility] Heart rate 2023-10-22 18:12:00 104 /min [facility] Body temperature 2023-10-22 18:12:00 36.11 Es [facility] Respiratory rate 2023-10-22 18:12:00 16 /min [facility] Body height 2023-10-22 18:12:00 172.7 cm [facility] Body weight 2023-10-22 18:12:00 95.754 kg [facility] BMI 2023-10-22 18:12:00 32.10 kg/m2 [facility] Systolic blood pressure 2023-10-17 14:59:00 131 mm[Hg] [facility] Diastolic blood pressure 2023-10-17 14:59:00 77 mm[Hg] [facility] Heart rate 2023-10-17 14:59:00 81 /min [facility] Body temperature 2023-10-17 14:59:00 36.5 Es [facility] Respiratory rate 2023-10-17 14:59:00 18 /min [facility] Body height 2023-10-17 14:59:00 172.7 cm [facility] Body weight 2023-10-17 14:59:00 95.255 kg [facility] BMI 2023-10-17 14:59:00 31.93 kg/m2 [facility] Systolic blood pressure 2023-10-09 17:43:00 122 mm[Hg] [facility] Diastolic blood pressure 2023-10-09 17:43:00 82 mm[Hg] [facility] Heart rate 2023-10-09 17:42:00 81 /min [facility] Body temperature 2023-10-09 17:42:00 36.5 Es [facility] Respiratory rate 2023-10-09 17:42:00 16 /min [facility] Body height 2023-10-09 17:42:00 172.7 cm [facility] Body weight 2023-10-09 17:42:00 96.616 kg [facility] BMI 2023-10-09 17:42:00 32.39 kg/m2 [facility] Oxygen saturation in Arterial blood by Pulse oximetry 2023-10-09 17:42:00 100 /min [facility] Systolic blood pressure 2023-09-11 15:30:00 130 mm[Hg] [facility] Diastolic blood pressure 2023-09-11 15:30:00 92 mm[Hg] [facility] Heart rate 2023-09-11 15:30:00 106 /min [facility] Body temperature 2023-09-11 15:26:00 36.61 Es [facility] Respiratory rate 2023-09-11 15:26:00 18 /min [facility] Body height 2023-09-11 15:26:00 170.2 cm [facility] Body weight 2023-09-11 15:26:00 93.98 kg [facility] BMI 2023-09-11 15:26:00 32.45 kg/m2 [facility] Systolic blood pressure 2023-04-12 01:19:00 91 mm[Hg] [facility] Diastolic blood pressure 2023-04-12 01:19:00 68 mm[Hg] [facility] Heart rate 2023-04-12 01:19:00 85 /min [facility] Respiratory rate 2023-04-12 01:19:00 18 /min [facility] Oxygen saturation in Arterial blood by Pulse oximetry 2023-04-12 01:19:00 99 /min [facility] Body temperature 2023-04-11 23:47:00 36.89 Es [facility] Body height 2023-04-11 23:47:00 170.2 cm [facility] Body weight 2023-04-11 23:47:00 91.082 kg [facility] BMI 2023-04-11 23:47:00 31.45 kg/m2 [facility] Systolic blood pressure 2023-04-03 20:40:00 118 mm[Hg] [facility] Diastolic blood pressure 2023-04-03 20:40:00 74 mm[Hg] [facility] Heart rate 2023-04-03 20:40:00 99 /min [facility] Body temperature 2023-04-03 20:40:00 36.56 Es [facility] Respiratory rate 2023-04-03 20:40:00 20 /min [facility] Body height 2023-04-03 20:40:00 170.2 cm [facility] Body weight 2023-04-03 20:40:00 90.719 kg [facility] BMI 2023-04-03 20:40:00 31.32 kg/m2 [facility] Systolic blood pressure 2023-03-14 18:37:00 132 mm[Hg] [facility] Diastolic blood pressure 2023-03-14 18:37:00 82 mm[Hg] [facility] Heart rate 2023-03-14 18:37:00 96 /min [facility] Body temperature 2023-03-14 18:37:00 36.78 Es [facility] Respiratory rate 2023-03-14 18:37:00 20 /min [facility] Body height 2023-03-14 18:37:00 170.2 cm [facility] Body weight 2023-03-14 18:37:00 91.717 kg [facility] BMI 2023-03-14 18:37:00 31.67 kg/m2 [facility] Systolic blood pressure 2022-12-29 18:44:00 135 mm[Hg] [facility] Diastolic blood pressure 2022-12-29 18:44:00 85 mm[Hg] [facility] Heart rate 2022-12-29 18:44:00 95 /min [facility] Body temperature 2022-12-29 18:44:00 35.78 Es [facility] Respiratory rate 2022-12-29 18:44:00 18 /min [facility] Body height 2022-12-29 18:44:00 170.2 cm [facility] Body weight 2022-12-29 18:44:00 94.121 kg [facility] BMI 2022-12-29 18:44:00 32.50 kg/m2 [facility] Systolic blood pressure 2022-12-12 15:53:00 121 mm[Hg] [facility] o [facility] Diastolic blood pressure 2022-12-12 15:53:00 84 mm[Hg] [facility] Heart rate 2022-12-12 15:53:00 108 /min [facility] Body temperature 2022-12-12 15:53:00 36.17 Es [facility] Respiratory rate 2022-12-12 15:53:00 18 /min [facility] Body height 2022-12-12 15:53:00 170.2 cm [facility] Body weight 2022-12-12 15:53:00 93.078 kg [facility] BMI 2022-12-12 15:53:00 32.14 kg/m2 [facility] Systolic blood pressure 2022-09-07 16:30:00 124 mm[Hg] [facility] Diastolic blood pressure 2022-09-07 16:30:00 85 mm[Hg] [facility] Respiratory rate 2022-09-07 16:29:00 18 /min [facility] Body height 2022-09-07 16:29:00 170.2 cm [facility] Body weight 2022-09-07 16:29:00 88.225 kg [facility] BMI 2022-09-07 16:29:00 30.46 kg/m2 [facility] Systolic blood pressure 2022-07-27 19:14:00 121 mm[Hg] [facility] Diastolic blood pressure 2022-07-27 19:14:00 83 mm[Hg] [facility] Heart rate 2022-07-27 19:14:00 125 /min [facility] Body temperature 2022-07-27 19:14:00 36.33 Es [facility] Respiratory rate 2022-07-27 19:14:00 18 /min [facility] Body weight 2022-07-27 19:14:00 86.365 kg [facility] BMI 2022-07-27 19:14:00 29.82 kg/m2 [facility] Systolic blood pressure 2022-07-14 21:15:00 136 mm[Hg] [facility] Diastolic blood pressure 2022-07-14 21:15:00 87 mm[Hg] [facility] Heart rate 2022-07-14 21:15:00 89 /min [facility] Body temperature 2022-07-14 21:15:00 36.17 Es [facility] Respiratory rate 2022-07-14 21:15:00 18 /min [facility] Body weight 2022-07-14 21:15:00 86.818 kg [facility] BMI 2022-07-14 21:15:00 29.98 kg/m2 [facility] Systolic blood pressure 2022-06-14 18:36:00 122 mm[Hg] [facility] Diastolic blood pressure 2022-06-14 18:36:00 82 mm[Hg] [facility] Heart rate 2022-06-14 18:36:00 83 /min [facility] Body temperature 2022-06-14 18:36:00 36.28 Es [facility] Respiratory rate 2022-06-14 18:36:00 17 /min [facility] Body height 2022-06-14 18:36:00 170.2 cm [facility] Body weight 2022-06-14 18:36:00 86.41 kg [facility] BMI 2022-06-14 18:36:00 29.84 kg/m2 [facility] Systolic blood pressure 2021-11-30 16:05:00 118 mm[Hg] [facility] Diastolic blood pressure 2021-11-30 16:05:00 74 mm[Hg] [facility] Heart rate 2021-11-30 16:05:00 92 /min [facility] Body temperature 2021-11-30 16:05:00 36.56 Es [facility] Respiratory rate 2021-11-30 16:05:00 18 /min [facility] Body height 2021-11-30 16:05:00 167.6 cm [facility] Body weight 2021-11-30 16:05:00 85.276 kg [facility] BMI 2021-11-30 16:05:00 30.34 kg/m2 [facility] Systolic blood pressure 2024-05-23 18:19:00 116 mm[Hg] [facility] Diastolic blood pressure 2024-05-23 18:19:00 77 mm[Hg] [facility] Heart rate 2024-05-23 18:19:00 100 /min [facility] Body temperature 2024-05-23 18:19:00 35.78 Es [facility] Respiratory rate 2024-05-23 18:19:00 18 /min [facility] Body height 2024-05-23 18:19:00 170.2 cm [facility] Body weight 2024-05-23 18:19:00 95.029 kg [facility] BMI 2024-05-23 18:19:00 32.81 kg/m2 [facility] Oxygen saturation in Arterial blood by Pulse oximetry 2024-01-08 16:08:00 99 /min [facility] Procedures Procedure Date / Time Performed Performing Clinician Source POCT TEST 2024-10-01 19:24:00 Nesha Mcgowan [facility] POCT URINALYSIS 2024-10-01 19:22:00 Nesha Mcgowan [facility] POCT TEST 2024-05-23 18:40:00 Hannah Torres [facility] PROGESTERONE, LEVEL 2024-02-01 18:25:00 Dangelo Levin [facility] POCT MOLECULAR FLU 2024-01-08 16:16:00 Unknown, Attending [facility] [place] HYSTEROSALPINGOGRAM 2023-12-14 16:00:00 Melodie Mireles [facility] POCT TEST 2023-11-15 16:17:00 Nesha Mcgowan [facility] [place] HYSTEROSALPINGOGRAM 2023-11-07 16:39:05 Brodie Sal [facility] US PELVIS COMPLETE WITH TRANSVAGINAL 2023-10-25 21:13:56 Brodie Sal [facility] PROLACTIN 2023-10-17 15:28:00 Viki Melendrez [facility] THYROID STIMULATING HORMONE 2023-10-17 15:28:00 Viki Melendrez [facility] GC & CHLAMYDIA AMPLIFIED ASSAY 2023-10-17 15:28:00 Viki Melendrez [facility] POCT TEST 2023-10-17 14:59:00 Viki Melendrez [facility] POCT TEST 2023-09-11 15:43:00 Viki Melendrez [facility] CONSENT/REFUSAL FOR DIAGNOSI S AND TREATMENT 2023-09-11 15:08:47 Doctor Unassigned, [place] [facility] ASSIGNMENT OF BENEFITS 2023-09-11 15:08:31 Doctor Unassigned, [place] [facility] POCT TEST 2023-04-12 00:15:00 Suzanne Elizondo [facility] CONSENT/REFUSAL FOR DIAGNOSI S AND TREATMENT 2023-04-11 23:40:41 Doctor Unassigned, [place] [facility] PAP SMEAR-LIQUID BASED-CP 2023-03-14 20:36:00 Sallie Reyna [facility] HIV 1/2 AG-AB WITH REFLEX 2022-12-29 19:39:00 Sallie Reyna [facility] POCT TEST 2022-12-12 21:08:00 Sallie Reyna [facility] POCT URINALYSIS W/O SPECIFIC GRAVITY 2022-07-27 19:19:00 Sallie Reyna [facility] POCT TEST 2022-07-14 21:18:00 Sallie Reyna [facility] CONSENT/REFUSAL FOR DIAGNOSI S AND TREATMENT 2022-07-14 20:33:51 Doctor Unassigned, [place] [facility] POCT TEST 2022-06-14 18:38:00 Hailey Ware [facility] DISCLOSURE AND CONSENT MEDICAL & SURGICAL PROCEDURES - FEMALM 2021-11-30 05:01:00 Doctor Unassigned, [place] [facility] POCT TEST 2021-11-30 00:00:00 AdumSandra [facility] HCV ANTIBODY 2021-11-02 16:34:00 Adum, Sandra Stuart [facility] Encounters Start Date/Time End Date/Time Encounter Type Admission Type Attending Clinicians Care Facility Care Department Encounter ID Source 2024-10-01 13:00:00 2024-10-01 13:34:15 Outpatient R NESHA MCGOWAN [facility] [id number] [facility] 2024-10-01 13:00:00 2024-10-01 13:34:15 [facility] 1.2.840.114 350.1.13.10 4.2.7.2.686 [id number] [facility] 2024-07-04 13:15:00 2024-07-04 16:13:48 Outpatient R RAKAN OCONNOR [facility] [id number] [facility] 2024-07-04 13:15:00 2024-07-04 16:13:48 Telemedici ne Visit Rakan Oconnor Pgy3 1.2.840.1 [id number] [facility] 2024-07-02 00:00:00 2024-07-02 00:00:00 Travel 1.2.840.1 [id number] 3.104.2.7 .[id number] .8 1.2.840.114 350.1.13.10 4.2.7.3.698 [id number] [facility] 2024-06-20 13:15:00 2024-06-20 13:15:00 Outpatient ARMANDO WEEMS DAPHNE [facility] [id number] [facility] 2024-05-23 00:00:00 2024-05-26 12:16:07 Telephone Dangelo Levin [facility] 1.2.840.114 350.1.13.10 4.2.7.2.686 [id number] [facility] 2024-05-23 13:30:00 2024-05-23 14:08:21 Outpatient R HANNAH TORRES KARREN [facility] [id number] [facility] 2024-05-23 13:30:00 2024-05-23 14:08:21 Office Visit Pgy3 Hannah Torres Pgy3 [facility] ([facility] 1.2.840.114 350.1.13.10 4.2.7.2.686 [id number] [facility] 2024-05-08 00:00:00 2024-05-09 17:24:27 Telephone Dangelo Levin [facility] ([facility] 1.2.840.114 350.1.13.10 4.2.7.2.686 [id number] [facility] 2024-03-20 00:00:00 2024-03-20 10:59:32 Telephone Dangelo Levin [facility] 1.2.840.114 350.1.13.10 4.2.7.2.686 [id number] [facility] 2024-03-13 12:00:00 2024-03-13 12:15:00 Lead Engineer Visit Pob, Adc Lab Main Yaron Blas [facility] 1.2.840.114 350.1.13.10 4.2.7.2.686 [id number] [facility] 2024-03-13 12:00:00 2024-03-13 12:00:00 Outpatient R YARON BLAS YVETTE [facility] [id number] [facility] 2024-01-10 00:00:00 2024-02-16 18:27:17 Patient Secure Dangelo Mcdonough [facility] 1.2.840.114 350.1.13.10 4.2.7.2.686 [id number] [facility] 2024-02-12 00:00:00 2024-02-13 14:35:33 Telephone Karen Lockhart [facility] 1.2840.114 350.1.13.10 4.2.7.2.686 [id number] [facility] 2024-01-02 00:00:00 2024-02-11 09:09:01 Telephone Dangelo Levin [facility] 1.840.114 350.1.13.10 4.2.7.2.686 [id number] [facility] 2024-02-01 13:15:00 2024-02-01 13:27:13 Outpatient R SALLIE REYNA [facility] [id number] [facility] 2024-02-01 13:15:00 2024-02-01 13:27:13 Lead Engineer Visit Lab, Ang-Rmchp Sallie Reyna [facility] APPLIANCE TECHNICIAN [facility] 1.2.840.114 350.1.13.10 4.2.7.2.686 [id number] [facility] 2024-01-10 00:00:00 2024-01-28 19:33:09 Telephone Kimberly Levinshua [facility] 1.2840.114 350.1.13.10 4.2.7.2.686 [id number] [facility] 2024-01-08 10:40:00 2024-01-08 11:00:00 Urgent Care Elida Ordonez Unknown, Attending [facility] 1.84.114 350.1.13.10 4.2.7.2.686 [id number] [facility] 2024-01-08 10:40:00 2024-01-08 10:40:00 Outpatient R ELIDA ORDONEZ [facility] [id number] [facility] 2024-01-01 00:00:00 2024-01-01 14:44:57 Telephone Tomer Sotelo [facility] 1.84.114 350.1.13.10 4.2.7.2.686 [id number] [facility] 2023-12-31 00:00:00 2023-12-31 14:16:35 Telephone Dangelo Levin [facility] 1..114 350.1.13.10 4.2.7.2.686 [id number] [facility] 2023-12-25 14:30:00 2023-12-25 15:26:10 Outpatient R CHRISTINE EM [facility] [id number] [facility] 2023-12-25 14:30:00 2023-12-25 15:26:10 Office Visit Joshua Emssica [facility] 1.84.114 350.1.13.10 4.2.7.2.686 [id number] [facility] 2023-12-25 08:45:00 2023-12-25 08:50:36 Lead Engineer Visit Lab, Alfred-Rmchp Viki Melendrez [facility] APPLIANCE TECHNICIAN [facility]NAL & [facility] 1..114 350.1.13.10 4.2.7.2.686 [id number] 107 [id number] [facility] 2023-12-17 14:15:00 2023-12-17 14:47:37 Outpatient R YARON BLAS [facility] [id number] [facility] 2023-12-17 14:15:00 2023-12-17 14:47:37 [facility] 1.2840.114 350.1.13.10 4.2.7.2.686 [id number] [facility] 2023-12-14 09:53:43 2023-12-14 23:59:00 Outpatient R YARON BLAS [facility] [id number] [facility] 2023-12-14 09:53:43 2023-12-14 23:59:00 Hospital Encounter [place] Yaron [facility] 1.0.114 350.1.13.10 4.2.7.2.686 [id number] [facility] 2023-12-13 00:00:00 2023-12-13 00:00:00 Letter (Out) [facility] 1.2.840.114 350.1.13.10 4.2.7.2.686 [id number] [facility] 2023-12-13 00:00:00 2023-12-13 00:00:00 Letter (Out) [facility] 1.2.840.114 350.1.13.10 4.2.7.2.686 [id number] [facility] 2023-12-12 00:00:00 2023-12-12 00:00:[address] [facility] 1.2840.114 350.1.13.10 4.2.7.2.686 [id number] [facility] 2023-12-04 11:00:00 2023-12-04 12:06:03 Outpatient R TOMER SOTLEO HOWARD [facility] [id number] [facility] 2023-12-04 11:00:00 2023-12-04 12:06:03 Office Visit Tomer Sotelo [facility] 1.114 350.1.13.10 4.2.7.2.686 [id number] [facility] 2023-11-30 13:30:00 2023-11-30 14:30:48 Outpatient R [facility] [id number] [facility] 2023-11-30 13:30:00 2023-11-30 14:30:48 [facility] 1.114 350.1.13.10 4.2.7.2.686 [id number] [facility] 2023-11-19 13:30:00 2023-11-19 15:26:23 Outpatient R YARON BLAS [facility] [id number] [facility] 2023-11-19 13:30:00 2023-11-19 15:26:23 Office Visit Pgy3 Yaron Blas [facility] 1.114 350.1.13.10 4.2.7.2.686 [id number] [facility] 2023-11-15 11:30:00 2023-11-15 11:45:00 Lead Engineer Visit Lab, Alfred - Nesha Gagnon [facility] OFF[facility] 1..114 350.1.13.10 4.2.7.2.686 [id number] [facility] 2023-11-15 10:30:00 2023-11-15 11:26:02 Outpatient R NESHA MCGOWAN [facility] [id number] [facility] 2023-11-15 10:30:00 2023-11-15 11:26:02 Office Visit Nesha Mcgowan [facility] 1..114 350.1.13.10 4.2.7.2.686 [id number] [facility] 2023-11-07 10:59:56 2023-11-07 23:59:00 Outpatient R YARON BLAS [facility] [id number] [facility] 2023-11-07 10:59:56 2023-11-07 23:59:00 Hospital [facility] [place] [facility] 1..114 350.1.13.10 4.2.7.2.686 [id number] [facility] 2023-11-07 00:00:00 2023-11-07 00:00:00 Telephone Karen Lockhart [facility] 1..114 350.1.13.10 4.2.7.2.686 [id number] [facility] 2023-10-31 00:00:00 2023-10-31 00:00:00 Telephone Brodie Sal [facility] 1..114 350.1.13.10 4.2.7.2.686 [id number] 113 [id number] [facility] 2023-10-26 15:00:00 2023-10-26 15:15:00 Lead Engineer Visit Pob, Adc Lab Main Rashi Moran [facility] 1.84.114 350.1.13.10 4.2.7.2.686 [id number] [facility] 2023-10-26 15:00:00 2023-10-26 15:00:00 Outpatient RASHI COHEN [facility] [id number] [facility] 2023-10-25 15:42:55 2023-10-25 23:59:00 Outpatient R YARON BLAS [facility] [id number] [facility] 2023-10-25 15:42:55 2023-10-25 23:59:00 Hospital Encounter Yaron Blas [facility] 1..840.114 350.1.13.10 4.2.7.2.686 [id number] [facility] 2023-10-22 13:15:00 2023-10-22 14:09:03 Outpatient R YARON BLAS [facility] [id number] [facility] 2023-10-22 13:15:00 2023-10-22 14:09:03 Office Visit Pgy3 Yaron Blas [facility] 1..840.114 350.1.13.10 4.2.7.2.686 [id number] [facility] 2023-10-17 08:45:00 2023-10-17 09:26:51 Outpatient R VIKI MELENDREZ [facility] [id number] [facility] 2023-10-17 08:45:00 2023-10-17 09:26:51 Office Visit Viki Melendrez [facility] APPLIANCE TECHNICIAN [facility] 1..840.114 350.1.13.10 4.2.7.2.686 [id number] 107 [id number] [facility] 2023-10-17 08:45:00 2023-10-17 08:45:00 Outpatient R VIKI MELENDREZ [facility] [id number] [facility] 2023-10-09 11:40:00 2023-10-09 12:03:06 Outpatient R ELIDA ORDONEZ [facility] [id number] [facility] 2023-10-09 11:40:00 2023-10-09 12:00:00 Urgent Care Elida Ordonez Unknown, [facility] 1.114 350.1.13.10 4.2.7.2.686 [id number] [facility] 2023-09-11 10:00:00 2023-09-11 10:00:00 [facility] Sallie Reyna [facility] APPLIANCE TECHNICIAN REG[facility]AL [facility] 1.114 350.1.13.10 4.2.7.2.686 [id number] 107 [id number] [facility] 2023-09-11 09:45:00 2023-09-11 09:45:00 Outpatient VIKI OTTO [facility] [id number] [facility] 2023-09-11 00:00:00 2023-09-11 00:00:00 Orders Only Doctor Unassigned, [place] [facility] 1..114 350.1.13.10 4.2.7.2.686 [id number] [facility] 2023-04-11 18:48:00 2023-04-11 20:38:00 Emergency SUZANNE HERNANDEZ [facility] ERT [id number] [facility] 2023-04-11 18:48:00 2023-04-11 20:38:00 Emergency Suzanne Elizondo [facility] 1..114 350.1.13.10 4.2.7.2.686 [id number] [facility] 2023-04-11 00:00:00 2023-04-11 00:00:00 Orders Only Doctor Unassigned, [place] [facility] 1..114 350.1.13.10 4.2.7.2.686 [id number] [facility] 2023-04-03 15:30:00 2023-04-03 16:22:30 Outpatient R TERESAAGATHASALLIE [facility] [id number] [facility] 2023-04-03 15:30:00 2023-04-03 16:22:30 Office Visit DarwinmaryagathaSallie [place] TXAYANNA APPLIANCE TECHNICIAN [facility] & CHILD [facility] 1.2.840.114 350.1.13.10 4.2.7.2.686 [id number] 107 [id number] [facility] 2023-03-26 00:00:00 2023-03-26 00:00:00 Telephone DarwinpiedadSallie [place] [facility] APPLIANCE TECHNICIAN [facility] CHILD [facility] 1.2.840.114 350.1.13.10 4.2.7.2.686 [id number] 107 [id number] [facility] 2023-03-14 13:30:00 2023-03-14 14:11:17 Outpatient R SALLIE REYNA [facility] [id number] [facility] 2023-03-14 13:30:00 2023-03-14 14:11:17 Office Visit DarwinmaryagathaSallie [place] [facility] APPLIANCE TECHNICIAN [facility] CHILD [facility] 1.2.840.114 350.1.13.10 4.2.7.2.686 [id number] 107 [id number] [facility] 2023-01-31 00:00:00 2023-01-31 00:00:00 Telephone TeresaagathaSallie [place] [facility] APPLIANCE TECHNICIAN [facility] & CHILD [facility] 1.2.840.114 350.1.13.10 4.2.7.2.686 [id number] 107 [id number] [facility] 2023-01-18 14:45:00 2023-01-18 14:45:00 Outpatient R SALLIE REYNA [facility] [id number] [facility] 2023-01-18 14:45:00 2023-01-18 14:45:00 Outpatient R SALLIE REYNA [facility] [id number] [facility] 2023-01-02 00:00:00 2023-01-02 00:00:00 Telephone Axel Sallie Bartholomew [facility] APPLIANCE TECHNICIAN [facility] & CHILD [facility] 1.2.840.114 350.1.13.10 4.2.7.2.686 [id number] 107 [id number] [facility] 2022-12-29 13:30:00 2022-12-29 14:38:20 Outpatient R AXEL SALLIE [facility] [id number] [facility] 2022-12-29 13:30:00 2022-12-29 14:38:20 Office Visit Sallie Reyna [facility] APPLIANCE TECHNICIAN [facility] & CHILD [facility] 1..840.114 350.1.13.10 4.2.7.2.686 [id number] 107 [id number] [facility] 2022-12-27 00:00:00 2022-12-27 00:00:00 Telephone Darwinmaryagatha Sallie Bartholomew [facility] APPLIANCE TECHNICIAN [facility] CHILD [facility] 1..840.114 350.1.13.10 4.2.7.2.686 [id number] 107 [id number] [facility] 2022-12-12 10:45:00 2022-12-12 11:08:14 Outpatient R SALLIE REYNA [facility] [id number] [facility] 2022-12-12 10:45:00 2022-12-12 11:08:14 Office Visit Sallie Reyna [facility] APPLIANCE TECHNICIAN [facility] CHILD [facility] 1..840.114 350.1.13.10 4.2.7.2.686 [id number] 107 [id number] [facility] 2022-12-01 09:15:00 2022-12-01 09:15:00 Outpatient R SALLIE REYNA [facility] [id number] [facility] 2022-11-03 13:30:00 2022-11-03 13:30:00 Outpatient R SANDRA WANG [facility] [id number] [facility] 2022-09-14 13:00:00 2022-09-14 13:00:00 Outpatient R [facility] [id number] [facility] 2022-09-07 10:00:00 2022-09-07 11:01:52 Outpatient R SALLIE REYNA [facility] [id number] [facility] 2022-09-07 10:00:00 2022-09-07 11:01:52 Office Visit Sallie Reyna [facility] APPLIANCE TECHNICIAN [facility] & CHILD [facility] ..840.114 350.1.13.10 4.2.7.2.686 [id number] 107 [id number] [facility] 2022-09-07 10:30:00 2022-09-07 10:30:00 Outpatient R VIKI MELENDREZ [facility] [id number] [facility] 2022-09-07 10:00:00 2022-09-07 10:00:00 Outpatient R SALLIE REYNA [facility] [id number] [facility] 2022-07-31 00:00:00 2022-07-31 00:00:00 Telephone Sallie Reyna [facility] APPLIANCE TECHNICIAN [facility] & CHILD [facility] ..840.114 350.1.13.10 4.2.7.2.686 [id number] 107 [id number] [facility] 2022-07-27 12:45:00 2022-07-27 13:40:14 Outpatient R SALLIE REYNA [facility] [id number] [facility] 2022-07-27 12:45:00 2022-07-27 13:40:14 Office Visit Sallie Reyna [facility] APPLIANCE TECHNICIAN [facility] & CHILD [facility] 1.2.840.114 350.1.13.10 4.2.7.2.686 [id number] 107 [id number] [facility] 2022-07-27 12:45:00 2022-07-27 12:45:00 Outpatient R SALLIE REYNA [facility] [id number] [facility] 2022-07-14 14:15:00 2022-07-14 15:38:37 Outpatient R SALLIE REYNA [facility] [id number] [facility] 2022-07-14 14:15:00 2022-07-14 15:38:37 Office Visit Sallie Reyna [facility] APPLIANCE TECHNICIAN [facility] MATERNAL & [facility] 1.2.840.114 350.1.13.10 4.2.7.2.686 [id number] 107 [id number] [facility] 2022-07-14 00:00:00 2022-07-14 00:00:00 Orders Only Doctor Unassigned, [place] [facility] 1..840.114 350.1.13.10 4.2.7.2.686 [id number] [facility] 2022-06-14 13:30:00 2022-06-14 14:41:50 Outpatient R HAILEY WARE [facility] [id number] [facility] 2022-06-14 13:30:00 2022-06-14 14:41:50 Office Visit Hailey Ware [facility] APPLIANCE TECHNICIAN [facility] MATERNAL & CHILD [facility] 1..840.114 350.1.13.10 4.2.7.2.686 [id number] [facility] 2022-06-14 10:30:00 2022-06-14 10:30:00 Outpatient R NORY TOLENTINO [facility] [id number] [facility] 2022-06-10 10:45:00 2022-06-10 10:45:00 Outpatient R [facility] [id number] [facility] 2022-06-07 00:00:00 2022-06-07 00:00:00 Telephone AdSandra benoit [facility] CARLIE YBARRA [facility] 1..840.114 350.1.13.10 4.2.7.2.686 [id number] [facility] 2022-06-06 13:30:00 2022-06-06 13:30:00 Outpatient R LEONARDO SANDRA [facility] [id number] [facility] 2022-05-31 13:30:00 2022-05-31 13:30:00 Outpatient [facility] [id number] [facility] 2022-05-29 00:00:00 2022-05-29 00:00:00 Letter (Out) SebastiánSandra benoit [facility] 1.84.114 350.1.13.10 4.2.7.2.686 [id number] [facility] 2022-04-21 13:00:00 2022-04-21 13:00:00 Outpatient R NESHA MCGOWAN [facility] [id number] [facility] 2022-04-10 11:00:00 2022-04-10 11:00:00 Outpatient R FELICIANO ROBISON CHERYAL [facility] [id number] [facility] 2022-04-07 00:00:00 2022-04-07 00:00:00 Telephone AdSandra [facility] 1..840.114 350.1.13.10 4.2.7.2.686 [id number] 134 [id number] [facility] 2022-01-18 00:00:00 2022-01-18 00:00:00 Telephone AdSandra benoit [facility] BUILD[facility] 1..840.114 350.1.13.10 4.2.7.2.686 [id number] [facility] 2022-01-18 00:00:00 2022-01-18 00:00:00 Telephone Juan MNesha [facility] MEDICAL OFFICE BUILD[facility] 1.284.114 350.1.13.10 4.2.7.2.686 [id number] [facility] 2022-01-11 10:30:00 2022-01-11 10:30:00 Outpatient R ADUM SANDRA [facility] [id number] [facility] 2021-12-20 00:00:00 2021-12-20 00:00:00 Telephone Sandra Wang [facility] 1.284.114 350.1.13.10 4.2.7.2.686 [id number] [facility] 2021-11-30 14:00:00 2021-11-30 14:15:00 Lead Engineer Visit Lab, Ang - Db Sebasti[facility]Vivian [facility] 1.84.114 350.1.13.10 4.2.7.2.686 [id number] [facility] 2021-11-30 10:30:00 2021-11-30 12:03:56 Outpatient R ADUM, SANDRA [facility] [id number] [facility] 2021-11-30 10:30:00 2021-11-30 12:03:56 Office Visit Adkaycee [facility] 1.284.114 350.1.13.10 4.2.7.2.686 [id number] [facility] 2021-11-30 00:00:00 2021-11-30 00:00:00 Orders Only Doctor Unassigned, [place] [facility] 1.0.114 350.1.13.10 4.2.7.2.686 [id number] [facility] 2021-11-25 10:30:00 2021-11-25 10:30:00 Outpatient Татьяна SANDRA WANG [facility] [id number] [facility] 2021-11-18 00:00:00 2021-11-18 00:00:00 Telephone Nesha Mcgowan [facility] MEDICAL OFFICE BUILDING 1.114 350.1.13.10 4.2.7.2.686 [id number] [facility] 2021-11-17 00:00:00 2021-11-17 00:00:00 Patient Secure Msg Doctor Unassigned, [place] [facility] MEDICAL OFFICE [facility] 1.114 350.1.13.10 4.2.7.2.686 [id number] [facility] 2021-11-17 00:00:00 2021-11-17 00:00:00 Telephone Nesha Mcgowan [facility] MEDICAL OFFICE BUILDING 1.114 350.1.13.10 4.2.7.2.686 [id number] [facility] 2021-11-10 00:00:00 2021-11-10 00:00:00 Patient Secure Msg Doctor Unassigned, [place] [facility] 1.20.114 350.1.13.10 4.2.7.2.686 [id number] [facility] 2021-11-04 08:30:00 2021-11-04 08:45:00 Lead Engineer Visit Lab, Alfred - Clarence Mcgowan Nesha Weinstein [facility] MEDICAL OFFICE BUILDING 1.114 350.1.13.10 4.2.7.2.686 [id number] [facility] 2021-11-04 08:30:00 2021-11-04 08:30:00 Outpatient R NESHA MCGOWAN [facility] [id number] [facility] 2021-11-04 08:30:00 2021-11-04 08:30:00 Outpatient ALICIA DEAMRCOLIE [facility] [id number] [facility] 2021-11-04 00:00:00 2021-11-04 00:00:00 Case Management Adkaycee Sandra Narciso [facility] BUILDING 1..840.114 350.1.13.10 4.2.7.2.686 [id number] [facility] 2021-11-03 12:30:00 2021-11-03 13:20:28 Office Visit N[facility] 1..840.114 350.1.13.10 4.2.7.2.686 [id number] [facility] 2021-11-03 12:30:00 2021-11-03 13:20:28 Outpatient R ALICIA MCGOWANLIE [facility] [id number] [facility] 2021-11-03 12:30:00 2021-11-03 12:30:00 Outpatient Татьяна GALEANOJUAN MBASILE [facility] [id number] [facility] 2021-11-03 12:30:00 2021-11-03 12:30:00 Outpatient R ALICIA MCGOWANLIE [facility] [id number] [facility] 2021-11-02 11:45:00 2021-11-02 12:00:00 Lead Engineer Visit 2, Adc Lab AdSandra benoit [facility] BUILDING 1.2.840.114 350.1.13.10 4.2.7.2.686 [id number] [facility] 2021-11-02 10:00:00 2021-11-02 11:18:03 Outpatient R SANDRA WANG [facility] [id number] [facility] 2021-11-02 10:00:00 2021-11-02 11:18:03 Initial Visit SebastiánkayceeSandar [facility] 1..840.114 350.1.13.10 4.2.7.2.686 [id number] [facility] 2021-11-02 10:00:00 2021-11-02 11:18:03 Outpatient R SANDRA WANG [facility] [id number] [facility] 2021-11-02 00:00:00 2021-11-02 00:00:00 Orders Only Doctor Unassigned, [place] [facility] 1..840.114 350.1.13.10 4.2.7.2.686 [id number] [facility] 2021-05-17 15:30:00 2021-05-17 15:30:00 Outpatient R SANDRA WANG [facility] [id number] [facility] 2021-05-09 15:15:00 2021-05-09 15:15:00 Outpatient R SALLIE REYNA [facility] [id number] [facility] 2021-04-06 13:03:25 2021-04-06 13:32:33 Nurse Visit Visit, Ang-Rmchp Nurse Nory Tolentino [facility] APPLIANCE TECHNICIAN [facility] 1..840.114 350.1.13.10 4.2.7.2.686 [id number] [facility] 2021-04-06 13:30:00 2021-04-06 13:30:00 Outpatient NORY LEIGH [facility] [id number] [facility] 2021-04-06 00:00:00 2021-04-06 00:00:00 Orders Only Doctor Unassigned, [place] [facility] 1.840.114 350.1.13.10 4.2.7.2.686 [id number] [facility] 2020-11-02 00:00:00 2020-11-02 00:00:00 Patient Outreach Sunil Montoya [facility] 1.840.114 350.1.13.10 4.2.7.2.686 [id number] [facility] 2020-09-09 15:30:00 2020-09-09 15:30:00 Outpatient R SANDRA WANG [facility] [id number] [facility] 2020-09-06 15:15:00 2020-09-06 15:15:00 Outpatient R SALLIE REYNA [facility] [id number] [facility] 2020-08-20 09:41:57 2020-08-20 10:11:57 Office Visit Sandra Wang [facility] 1.840.114 350.1.13.10 4.2.7.2.686 [id number] [facility] 2020-08-20 10:00:00 2020-08-20 10:00:00 Outpatient R SANDRA WANG [facility] [id number] [facility] 2020-08-20 00:00:00 2020-08-20 00:00:00 Orders Only Doctor Unassigned, [place] [facility] 1.2840.114 350.1.13.10 4.2.7.2.686 [id number] [facility] 2020-08-04 15:00:00 2020-08-04 15:00:00 Outpatient R SALLIE REYNA [facility] [id number] [facility] 2020-07-26 15:15:00 2020-07-26 15:15:00 Outpatient R AKINSALLIE FERRELL [facility] [id number] [facility] 2020-06-07 15:56:14 2020-06-07 16:43:15 Office Visit Sallie Reyna [facility] APPLIANCE TECHNICIAN [facility] & CHILD [facility] 1..840.114 350.1.13.10 4.2.7.2.686 [id number] [facility] 2020-06-07 16:00:00 2020-06-07 16:00:00 Outpatient SALLIE MONAHAN [facility] [id number] [facility] 2020-06-02 15:15:00 2020-06-02 15:15:00 Outpatient SALLIE MONAHAN [facility] [id number] [facility] 2020-05-28 00:00:00 2020-05-28 00:00:00 Telephone Sallie Reyna [facility] APPLIANCE TECHNICIAN [facility] CHILD [facility] 1.840.114 350.1.13.10 4.2.7.2.686 [id number] [facility] 2020-05-10 12:48:58 2020-05-10 13:30:27 Nurse Visit Visit, Ang-Rmchp Nurse Sallie Reyna [facility] APPLIANCE TECHNICIAN [facility] CHILD [facility] 1..840.114 350.1.13.10 4.2.7.2.686 [id number] [facility] 2020-05-10 13:00:00 2020-05-10 13:00:00 Outpatient Татьяна MORELMARYAGATHA SALLIE [facility] [id number] [facility] 2020-05-10 00:00:00 2020-05-10 00:00:00 Telephone Zac Elizondo [facility] APPLIANCE TECHNICIAN [facility] & CHILD [facility] 1..840.114 350.1.13.10 4.2.7.2.686 [id number] [facility] 2020-05-07 00:00:00 2020-05-07 00:00:00 Telephone Sallie Reyna [facility] APPLIANCE TECHNICIAN [facility] & CHILD [facility] 1.2.840.114 350.1.13.10 4.2.7.2.686 [id number] [facility] 2020-05-06 15:27:30 2020-05-06 16:49:53 Office Visit Sallie Reyna [facility] APPLIANCE TECHNICIAN [facility] & CHILD [facility] [facility] 1.2.840.114 350.1.13.10 4.2.7.2.686 [id number] [facility] 2020-05-06 15:45:00 2020-05-06 15:45:00 Outpatient R SALLIE REYNA [facility] [id number] [facility] 2020-05-05 00:00:00 2020-05-05 00:00:00 Telephone Zac Elizondo [facility] APPLIANCE TECHNICIAN [facility] & CHILD [facility] 1.2.840.114 350.1.13.10 4.2.7.2.686 [id number] [facility] 2020-03-16 10:30:00 2020-03-16 10:30:00 Outpatient R NORY TOLENTINO [facility] [id number] [facility] 2020-03-08 00:00:00 2020-03-08 00:00:00 Telephone Zac Elizondo [facility] APPLIANCE TECHNICIAN [facility] & CHILD [facility] 1.2.840.114 350.1.13.10 4.2.7.2.686 [id number] [facility] 2019-12-24 00:00:00 2019-12-24 00:00:00 Telephone Nory Tolentino [facility] APPLIANCE TECHNICIAN [facility] & CHILD [facility] 1.2.840.114 350.1.13.10 4.2.7.2.686 [id number] [facility] 2019-12-17 14:15:00 2019-12-17 14:15:00 Office Visit Nory Tolentino [facility] APPLIANCE TECHNICIAN [facility] & CHILD [facility] 1..114 350.1.13.10 4.2.7.2.686 [id number] [facility] 2019-12-17 13:14:44 2019-12-17 13:44:44 Initial Visit Nory Tolentino [facility] APPLIANCE TECHNICIAN [facility] & CHILD [facility] 1..114 350.1.13.10 4.2.7.2.686 [id number] [facility] 2019-12-17 13:15:00 2019-12-17 13:15:00 Outpatient R NORY TOLENTINO [facility] [id number] [facility] 2019-12-17 13:15:00 2019-12-17 13:15:00 Outpatient R NORY TOLENTINO [facility] [id number] [facility] 2019-12-17 00:00:00 2019-12-17 00:00:00 Telephone Nory Tolentino [facility] APPLIANCE TECHNICIAN [facility] & CHILD [facility] 1..114 350.1.13.10 4.2.7.2.686 [id number] [facility] 2019-12-10 08:00:00 2019-12-10 08:00:00 Outpatient R SALLIE REYNA [facility] [id number] [facility] 2019-11-27 13:00:00 2019-11-27 13:00:00 Outpatient R GOPAL TOLBERT [facility] [id number] [facility] 2019-11-24 00:00:00 2019-11-24 00:00:00 Telephone Zac Elizondo [facility] 1.84.114 350.1.13.10 4.2.7.2.686 [id number] [facility] 2019-10-31 13:00:00 2019-10-31 13:00:00 Outpatient R ZAC ELIZONDO [facility] [id number] [facility] 2019-10-10 13:47:42 2019-10-10 14:18:33 Office Visit Zac Elizondo [facility] APPLIANCE TECHNICIAN [facility] & CHILD [facility] 1.2.840.114 350.1.13.10 4.2.7.2.686 [id number] [facility] 2019-10-10 13:15:00 2019-10-10 13:15:00 Outpatient R ZAC ELIZONDO [facility] [id number] [facility] 2019-09-25 16:33:30 2019-09-25 17:23:34 Office Visit Chandan Shu [facility] 1.2.840.114 350.1.13.10 4.2.7.2.686 [id number] [facility] 2019-09-22 00:00:00 2019-09-22 00:00:00 Telephone Gopal Tolbert [facility] 1.2.840.114 350.1.13.10 4.2.7.2.686 [id number] 134 [id number] [facility] 2019 00:00:00 2019 00:00:[address] [facility] 1.2.840.114 350.1.13.10 4.2.7.2.686 [id number] 134 [id number] [facility] 2019-09-13 00:00:00 2019-09-13 00:00:[address] [facility] 1.2.840.114 350.1.13.10 4.2.7.2.686 [id number] [facility] 2019-09-02 12:57:31 2019-09-02 13:12:31 Lead Engineer Visit Pob, [facility] Main Amber Farnsworth [facility] 1.2840.114 350.1.13.10 4.2.7.2.686 [id number] [facility] 2019-09-02 00:00:00 2019-09-02 00:00:00 Orders Only Doctor Unassigned, [place] [facility] 1.2840.114 350.1.13.10 4.2.7.2.686 [id number] [facility] 2019-04-24 10:08:46 2019-04-24 10:30:57 Nurse Visit Nurse, [facility] Amber Farnsworth [facility] 1.284.114 350.1.13.10 4.2.7.2.686 [id number] 134 [id number] [facility] 2019-04-15 09:05:01 2019-04-15 23:59:00 Hospital Encounter Rashi Baker [facility] 1.284.114 350.1.13.10 4.2.7.2.686 [id number] [facility] 2019-04-15 09:05:01 2019-04-15 23:59:00 Outpatient R RASHI [facility] [id number] [facility] 2019-04-15 09:05:18 2019-04-15 09:20:18 Lead Engineer Visit 1, [facility] Mohsenmary [facility] 1.284.114 350.1.13.10 4.2.7.2.686 [id number] [facility] 2019-04-15 00:00:00 2019-04-15 00:00:00 Telephone DaleRashi [facility] 1.2840.114 350.1.13.10 4.2.7.2.686 [id number] 134 [id number] [facility] 2019-04-03 14:06:14 2019-04-03 14:32:05 Office Visit Rashi Baker [facility] 1.2.840.114 350.1.13.10 4.2.7.2.686 [id number] 134 [id number] [facility] 2019-04-01 00:00:00 2019-04-01 00:00:00 Refill Doctor Unassigned, [place] [facility] 1.2.840.114 350.1.13.10 4.2.7.2.686 [id number] 134 [id number] [facility] 2019-03-20 16:15:08 2019-03-20 16:30:08 Lead Engineer Visit 1, [facility] Rashi Baker [facility] 1.2.840.114 350.1.13.10 4.2.7.2.686 [id number] [facility] 2019-03-20 14:52:09 2019-03-20 15:58:45 Office Visit Rashi Baker [facility] 1.2.840.114 350.1.13.10 4.2.7.2.686 [id number] 134 [id number] [facility] 2019-03-20 00:00:00 2019-03-20 00:00:00 Orders Only Doctor Unassigned, [place] [facility] 1.2.840.114 350.1.13.10 4.2.7.2.686 [id number] [facility] Results Test Description Test Time Test Comments Results Result Co mments [facility] W Specific [id number] 19:22:00* Test Item Value Reference Range Interpretation Comme nts POCT U SP GRAV (test code = 3255) 1.015 mg/dl 1.005-1.025 POCT PH U (test code = 3254) 7 mg/dl 5-8 POCT U LEUK EST (test code = 3263) trace Negative - Negative POCT U NIT (test code = 3262) negative Negative - Negati ve POCT U PROT (test code = 3259) trace Negative - Negative POCT U GLU (test code = 3256) normal Negative - Negati ve POCT U KETONE (test code = 3258) +/small Negative - Negative POCT U UROBILI (test code = 3260) normal 0.2-1 POCT U BILI (test code = 3261) negative Negative - Negative POCT U BLD (test code = 3257) about 50 Negative - Negati ve POCT U COLOR (test code = 3266) dark yellow POCT U APPEAR (test code = 3267) hazy [facility] [id number] 18:40:00* Test Item Value Reference Range Interpretation Comme nts POCT PREG (test code = 1605) Negative On board controls acceptable with C Line (test code = 3574) Yes POCT PREG LOT # (test code = 3575) POCT PREG TEST DATE ( test code = 3576) Lab Interpretation (test cod e = 70058-5) Normal [facility] Molecular [id number] 16:28:03* Test Item Value Reference Range Interpretation Comme nts POCT Molecular FluA (test co de = 05357-9) Negative Negative POCT Molecular FluB (test co de = 88242-6) Negative Negative Lab Interpretation (test cod e = 98857-1) Normal [facility] [id number] 21:38:50EXAM: [place] HYSTEROSALPINGOGRAM HISTORY: 23 years-old; Female; infertility, tubal patency evaluation COMPARISON: None available TECHNIQUE: Speculum exam was used to localize the cervix in the usualsterile fashion. A 7 Fr catheter was then placed into the cervical canal.Approximately 50 mL of Isovue was instilled, and images were obtainedduring early and late filling. The patient tolerated the procedure wellwithout any complications. FINDINGS: Fluoroscopy and films of the uterus and adnexa demonstrate a normal uterus.Contrast completely fills both fallopian tubes and subsequently pools intothe peritoneal cavity bilaterally. [facility] [id number] 16:18:00* Test Item Value Reference Range Interpretation Comme nts POCT PREG (test code = 1605) Negative On board controls acceptable with C Line (test code = 3574) Yes POCT PREG LOT # (test code = 3575) [id number] POCT PREG TEST DATE ( test code = 3576) [id number] [facility] [id number] 16:18:00* Test Item Value Reference Range Interpretation Comme nts POCT PREG (test code = 1605) Negative On board controls acceptable with C Line (test code = 3574) Yes POCT PREG LOT # (test code = 3575) [id number] POCT PREG TEST DATE ( test code = 3576) [id number] [facility] P[facility] COMPLETE WITH [id number] 21:29:09EXAM: US PELVIS COMPLETE WITH TRANSVAGINAL HISTORY: 23 years -old Female with infertility work up .LMP = 06/15/2023 TECHNIQUE: Transabdominal and transvaginal ultrasound imaging of the pelviswas performed including color Doppler evaluation. [employer] Division imageswere obtained for the record. COMPARIS ON: Transvaginal ultrasound 01/21/2019, hysterosalpingogram 04/15/2019 FINDINGS: Uterus: Size: 8.0 x 4.8 x 3.6 cmMyometrium: HeterogeneousMasses: Subendometrial cysts are visualized, benign entity.Cervix: Multiple small nabothian cysts are visualized.Endometrial thickness: 0.8 cmEndometrium: Normal thickness for premenopausal female. Right Adnexa:Ovary size: 3.2 x 3.7 x 2.7 cm, 17.0 mLOvary appearance: Multiple small follicles. Left Adnexa:Ovary size: 3.5 x 3.0 x 2.8 cm, 15.0 mL.Ovary appearance: Multiple small follicles. Cul-de-sac: No free fluid.[facility] CenterProlactin2024-03-07 06:55:06* Test Item Value Reference Range Interpretation Comme [facility] PROLACTIN (test code = 0419317939) 6.6 ng/mL 3.3-26.7 Lab Interpretation (test cod e = 32015-4) Normal [facility] Center[facility]rolactin2024-03-07 06:55:06* Test Item Value Reference Range Interpretation Comme nts PROLACTIN (test code = 1790474070) 6.6 ng/mL 3.3-26.7 Lab Interpretation (test cod e = 79541-6) Normal [facility] CenterThyroid Stimulating [id number] 06:19:59 * Test Item Value Reference Range Interpretation Comme nts TSH (test code = 2463197563) 1.28 0.45-4.70 Biotin has been reported to cause a negative bias, interpret results relative to patient's use of biotin. Lab Interpretation (test code = 73551-3) Normal [facility] [id number] 06:19:59 * Test Item Value Reference Range Interpretation Comme nts TSH (test code = 7750127620) 1.28 0.45-4.70 Biotin has been reported to cause a negative bias, interpret results relative to patient's use of biotin. Lab Interpretation (test code = 32892-1) Normal [facility] [id number] 14:59:00* Test Item Value Reference Range Interpretation Comme nts POCT PREG (test code = 1605) Negative On board controls acceptable with C Line (test code = 3574) Yes POCT PREG LOT # (test code = 3575) POCT PREG TEST DATE ( test code = 3576) [facility] [id number] 14:59:00* Test Item Value Reference Range Interpretation Comme nts POCT PREG (test code = 1605) Negative On board controls acceptable with C Line (test code = 3574) Yes POCT PREG LOT # (test code = 3575) POCT PREG TEST DATE ( test code = 3576) [facility] [id number] 15:43:00* Test Item Value Reference Range Interpretation Comme nts POCT PREG (test code = 1605) Negative On board controls acceptable with C Line (test code = 3574) Yes POCT PREG LOT # (test code = 3575) POCT PREG TEST DATE ( test code = 3576) [facility] [id number] 00:15:00* Test Item Value Reference Range Interpretation Comme nts POCT PREG (test code = 1605) Negative On board controls acceptable with C Line (test code = 3574) Yes POCT PREG LOT # (test code = 3575) [id number] POCT PREG TEST DATE ( test code = 3576) 08/15/2024 Lab Interpretation (test cod e = 23460-4) Normal [facility] [id number] 21:08:00* Test Item Value Reference Range Interpretation Comme nts POCT PREG (test code = 1605) Negative On board controls acceptable with C Line (test code = 3574) Yes POCT PREG LOT # (test code = 3575) POCT PREG TEST DATE ( test code = 3576) [facility] [id number] 21:08:00* Test Item Value Reference Range Interpretation Comme nts POCT PREG (test code = 1605) Negative On board controls acceptable with C Line (test code = 3574) Yes POCT PREG LOT # (test code = 3575) POCT PREG TEST DATE ( test code = 3576) [facility] URINALYSIS W/O SPECIFIC [id number] 19:19:00* Test Item Value Reference Range Interpretation Comme nts POCT PH U (test code = 3254) 6 mg/dl 5-8 POCT U LEUK EST (test code = 3263) 3+ Negative - Negative POCT U NIT (test code = 3262) positive Negative - Negati ve POCT U PROT (test code = 3259) 2+ Negative - Negat tomás POCT U GLU (test code = 3256) negative Negative - Negati ve POCT U KETONE (test code = 3258) negative Negative - Neg ative POCT U BLD (test code = 3257) large Negative - Negati ve [facility] URINALYSIS W/O SPECIFIC [id number] 19:19:00* Test Item Value Reference Range Interpretation Comme nts POCT PH U (test code = 3254) 6 mg/dl 5-8 POCT U LEUK EST (test code = 3263) 3+ Negative - Negative POCT U NIT (test code = 3262) positive Negative - Negati ve POCT U PROT (test code = 3259) 2+ Negative - Negat tomás POCT U GLU (test code = 3256) negative Negative - Negati ve POCT U KETONE (test code = 3258) negative Negative - Neg ative POCT U BLD (test code = 3257) large Negative - Negati ve [facility] [id number] 21:18:00* Test Item Value Reference Range Interpretation Comme nts POCT PREG (test code = 1605) Negative On board controls acceptable with C Line (test code = 3574) Yes POCT PREG LOT # (test code = 3575) POCT PREG TEST DATE ( test code = 3576) [facility] [id number] 21:18:00* Test Item Value Reference Range Interpretation Comme nts POCT PREG (test code = 1605) Negative On board controls acceptable with C Line (test code = 3574) Yes POCT PREG LOT # (test code = 3575) POCT PREG TEST DATE ( test code = 3576) [facility] [id number] 18:40:00* Test Item Value Reference Range Interpretation Comme nts POCT PREG (test code = 1605) Negative On board controls acceptable with C Line (test code = 3574) Yes POCT PREG LOT # (test code = 3575) POCT PREG TEST DATE ( test code = 3576) [facility] [id number] 18:40:00* Test Item Value Reference Range Interpretation Comme nts POCT PREG (test code = 1605) Negative On board controls acceptable with C Line (test code = 3574) Yes POCT PREG LOT # (test code = 3575) POCT PREG TEST DATE ( test code = 3576) [facility] [id number] 16:42:00* Test Item Value Reference Range Interpretation Comme nts POCT PREG (test code = 1605) Negative On board controls acceptable with C Line (test code = 3574) Yes POCT PREG LOT # (test code = 3575) POCT PREG TEST DATE ( test code = 3576) [facility] [id number] 16:42:00* Test Item Value Reference Range Interpretation Comme nts POCT PREG (test code = 1605) Negative On board controls acceptable with C Line (test code = 3574) Yes POCT PREG LOT # (test code = 3575) POCT PREG TEST DATE ( test code = 3576) [facility] Notes Date/Time Note Provider Source 2024-05-26 12:15:53 Pt has been scheduled Huma Rutherford [facility] 2024-05-23 15:24:25 ----- Message from Dangelo Levin MD sent at 05/23/2024 2:44 PM CDT ----- Please contact patient for follow-up after starting anti-depressant. I initially did not discuss follow-up in clinic. However, please let her know I feel it is best to follow-up within the next month (ideally within 2 weeks) to reassess symptoms. Telehealth is OK. Please give her the option of 06/20 PM when I return to clinic or sooner whenever she is available with another provider. Thank you. Pt notified of MD recommendations, pt agreed and v/u. Pt wants f/u telehealth appt to be on 06/20 with Vin PLASENCIA. Routed to PSS to schedule telehealth appointment. Hannah Stevens RN [facility] 2024-05-09 17:24:07 Pt is scheduled, Alvaro Tejada 05/09/2024 5:24 PM Sherrie Tejada [facility] 2024-05-08 13:11:06 Sienna Rodriguez is a 23 year old female Patient requesting apt with pgy2/ dangelo levin for a follow up on infertility and proceed into next steps. Please call [phone] (home) Kalyn Castro [facility] 2024-03-21 08:34:29 Addended by: DANGELO LEVIN on: 03/21/2024 08:34 AM Modules accepted: Orders [facility] 2024-03-20 10:59:12 Routed to to advise on 03/13/24 lab results Marely Ambrosio RN [facility] 2024-03-20 10:00:48 Sienna Rodriguez is a 23 year old female Patient called for results review from labs taken 03/13/24 Please contact pt at [phone] (home) Em Bowman [facility] 2024-03-13 12:00:00 Images from the original note were not included. Venipuncture collection performed by clean technique on the left anticubitus. Total of 1 attempts were made. Slight pressure and a bandage/dressing were applied to the site(s). The patient experienced no complications. The following specimens were processed according to instructions and sent to [facility] laboratories per lab order on 03/13/2024: LT BLUE SST 1 RED LAV PPT DK GREEN (LiHep) DK GREEN (SodH) BAEZ DK BLUE (K2) DK BLUE (S) ACD Blood Culture NIPT/NTD [facility] 2024-02-13 13:30:[address] Levin to get in contact with the patient. Ben Gordon MD Obstetrics and Gynecology, PGY4 1:30 PM OG-OBSTETRICS & GYNECOLOGY [facility] 2024-02-12 16:27:41 Sienna Rodriguez is a 23 year old female calling back to verify medication of Letrozole will sent to pharmacy today. Please contact patient at [phone] (home) Tegan Craven [facility] 2024-02-12 13:56:03 Spoke with pt states she started her menses on 02/09/24 and would like to confirm plan of care. Progesterone Level on 02/01/24 was 0.77. States this will be the 3rd round of Letrazole for her. Confirmed that she will increase Letrazole to 7.5mg daily. Blood draw should be scheduled on 03/01/24. Pt states she will call [facility] lab to schedule this appt. Will route to MD for lab order. Dangelo Levin MD to Sienna Rodriguez Ovulation Induction Protocol Start medroxyprogesterone 10 mg oral tablet daily x 10 days. Menses should begin within a week after completion of the 10 day course. Day 1 - First day of period Day 3 - Start taking Letrozole oral tablet x 5 days, until day 7. Day 7 - Finish Letrozole 5 day course. Ovulation should occur within 5-10 days from this time. Day 12-17 - Ovulation window. Time intercourse during this window. Day 21 - Have blood work drawn at [facility] lab to measure mid-luteal progesterone level. This hormone should be elevated if ovulation has occurred recently. If ovulation has occurred without conception, you will begin your period 14 days after ovulation occurred. This will occur naturally and an additional course of medroxyprogesterone is not needed. On day 3 of your next cycle, start another course of Letrozole x 5 days at the same dose. If ovulation has occurred with conception, you are ! You should take a test after your missed period to confirm this. If ovulation has not occurred, start another course of medroxyprogesterone 10 mg oral tablet daily x 10 days. The first day of your period will start Day 1 of the next cycle. During the next cycle, increase the daily dose of Letrozole by 2.5 mg. (i.e. take 2.5 mg daily during the first cycle, 5 mg daily during the second, and 7.5 mg daily during the third cycle.) Daily dosing of Letrozole should not exceed 7.5 mg daily. It will be helpful to keep a calendar in adhering to this protocol. Letrozole can be started any day between Day 2 - 5. This may be helpful when timing the day 21 lab draw to avoid the day falling on a weekend or an inconvenient day. The interval of time between events on this protocol does not change; the day 21 lab should be collected 18 days after starting Letrozole. (ex. If started on day 2, labs are drawn on day 20) Last read by Sienna Rodriguez at 5:42 PM on 01/13/2024. Marely Ambrosio RN [facility] 2024-02-12 10:31:34 Sienna Rodriguez is a 23 year old female Patient states she started her period on 02/09/24, and asking if she should still take letrozole Please contact pt at [phone] (home) Em Bowman [facility] 2024-01-17 08:06:48 Please review encounter and close ANDROT Tegan Craven [facility] 2024-01-10 13:00:08 Sienna Rodriguez is a 23 year old female requesting to talk with an nurse, questions on medroxyPROGESTERone (PROVERA) started spotting while taking RX and requesting direction on taking medication letrozole. Stated has started cycle not due to start cycle until days after talking medroxyPROGESTERone . Jalyn QuilestonYudithTesha [facility] 2024-01-10 08:45:36 Copied from [facility] #[id number]. Topic: Clinical - Medical Advice >> January 10, 2024 8:42 AM Patient Clothes Wringer wrote: Sienna Rodriguez is a 23 year old female requesting to talk with an nurse Q's on medroxyPROGESTERone (PROVERA) started spotting while taking meds and requesting direction on taking meds. Please contact patient at [phone] (home) [facility] 2024-01-02 09:16:37 Copied from [facility] #[id number]. Topic: Clinical - Medical Advice >> January 02, 2024 9:15 AM Patient Clothes Wringer wrote: Sienna Rodriguez is a 23 year old female Patient requesting indications on how to take letrozole 5 mg tablets and when to start. Please call [phone] (home) Kalyn Castro [facility] 2024-01-01 14:44:33 Images from the original note were not included. Per note on medication, PA has been approved. Arlyn Newman LVN [facility] 2024-01-01 12:25:04 Images from the original note were not included. Prior Auth Needed Em Prather [facility] 2023-12-31 14:05:51 Telephone Note 12/31/23 1400 Called patient to discuss 21 day progesterone level. Discussed that due to low hormone level, it is likely that ovulation did not occur. Patient does report some cramping, home UPT negative. Recommendation is to start another course of Provera 10 mg daily x 10 days. Then to start Letrozole 5 mg daily (increased dose) x 5 days from day 3 through day 7 (may adjust start day anywhere from day 2-5 so that day 21 ends up on a week day to avoid lab being closed). Standing order placed for day 21 progesterone level. Will follow-up progesterone level and increase next cycle if needed. For patient education, please see ovulation induction protocol below. Call clinic with any questions. Daljit Levin MD Ovulation Induction Protocol Start medroxyprogesterone 10 mg oral tablet daily x 10 days. Menses should begin within a week after completion of the 10 day course. Day 1 - First day of period Day 3 - Start taking Letrozole oral tablet x 5 days, until day 7. Day 7 - Finish Letrozole 5 day course. Ovulation should occur within 5-10 days from this time. Day 12-17 - Ovulation window. Time intercourse during this window. Day 21 - Have blood work drawn at [facility] lab to measure mid-luteal progesterone level. This hormone should be elevated if ovulation has occurred recently. If ovulation has occurred without conception, you will begin your period 14 days after ovulation occurred. This will occur naturally and an additional course of medroxyprogesterone is not needed. On day 3 of your next cycle, start another course of Letrozole x 5 days at the same dose. If ovulation has occurred with conception, you are ! You should take a test after your missed period to confirm this. If ovulation has not occurred, start another course of medroxyprogesterone 10 mg oral tablet daily x 10 days. The first day of your period will start Day 1 of the next cycle. During the next cycle, increase the daily dose of Letrozole by 2.5 mg. (i.e. take 2.5 mg daily during the first cycle, 5 mg daily during the second, and 7.5 mg daily during the third cycle.) Daily dosing of Letrozole should not exceed 7.5 mg daily. It will be helpful to keep a calendar in adhering to this protocol. Letrozole can be started any day between Day 2 - 5. This may be helpful when timing the day 21 lab draw to avoid the day falling on a weekend or an inconvenient day. The interval of time between events on this protocol does not change; the day 21 lab should be collected 18 days after starting Letrozole. (ex. If started on day 2, labs are drawn on day 20) [facility] 2023-12-12 15:25:54 PA submitted for Topamax. Aeryal Neurohr (Castillo: [id number]) Arlyn Newman LVN [facility] 2023-12-12 10:08:31 Images from the original note were not included. Received PA Castillo: [id number] Placed in Providers box. Mae Painting [facility] 2023-11-15 11:30:00 Images from the original note were not included. Venipuncture collection performed by clean technique on the left anticubitus. Total of 1 attempts were made. Slight pressure and a bandage/dressing were applied to the site(s). The patient experienced no complications. The following specimens were processed according to instructions and sent to [facility] laboratories per lab order on TODAY: LT BLUE SST 3 RED LAV 1 PPT LTGREEN (LiHep) 1 DK GREEN (SodH) BAEZ DK BLUE (K2) DK BLUE (S) ACD Blood Culture NIPT/NTD [facility] 2023-11-07 11:43:38 Pt walked in and requests that you please resubmit orders for her hsg. [employer] tech could not locate her cervix. Rosanne Zamudio [facility] 2023-11-07 11:29:26 Pt to keep upcoming appt as scheduled with residents to discuss further. Marely Ambrosio RN [facility] 2023-11-01 09:36:58 Patient is being seen by residents. Can they address this? [facility] 2023-10-31 09:46:08 Copied from [facility] #[id number]. Topic: Clinical - Medical Advice >> Oct 31, 2023 9:44 AM Patient Clothes Wringer wrote: Pt is requesting call back, states quit taking medication on Sat has not start cycle and is worried about upcoming test. Please call [phone] (home) ANDROT MEETA Whaley [facility] 2023-10-26 15:00:00 Images from the original note were not included. Venipuncture collection performed by clean technique on the left anticubitus. Total of 1 attempts were made. Slight pressure and a bandage/dressing were applied to the site(s). The patient experienced no complications. The following specimens were processed according to instructions and sent to [facility] laboratories per lab order on 10/26/2023 : LT BLUE SST 3 RED LAV PPT DK GREEN (LiHep) DK GREEN (SodH) BAEZ DK BLUE (K2) DK BLUE (S) ACD Blood Culture NIPT/NTD [facility] 2023-04-11 20:38:01 Formatting of this n ote might be different from the original. Awake, alert oriented X4, respiratory even and unlabored,skin w/d color appropriate for race, moves all ext well, pt encouraged to follow up with pcp and or return as needed Pt given printed and verbal discharge instructions regarding Nausea and vomiting , patient verbralized understanding and signature obtained, patient denies any other concerns. Prescriptions provided Advised to seek medical attention for new/prolonged/worsening of symptoms, No adverse reaction to meds given in ER noted upon discharge Pt ambulated to the lobby with steady gait Cinthya Ware RN [facility] 2023-04-11 18:47:19 Formatting of this n ote might be different from the original. Fever, nausea x3 days. Francheska Chen RN [facility] 2023-04-11 18:40:00 Formatting of this n ote is different from the original. 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 She did have diarrhea on the first day but none since. She had no vomiting. No sick contacts. No recent trips or travel or bad food exposure. She did try Zofran at home earlier today and reports it did not help. She has been afraid to eat or drink anything today due to her nausea. No abdominal pain. She reports her last menstrual period was approximate 1 week ago and she denies being . No cough or congestion. No sore throat. She does vape and smokes marijuana. Here for evaluation. Past Medical History/Immunizations: Past Medical History: Diagnosis Date Amenorrhea, secondary 03/20/2019 Anemia with Anxiety 2016 Bipolar 1 disorder Depression 2016 Female infertility associated with anovulation 04/18/2019 Gonococcal infection (acute) of lower genitourinary tract 02/04/2019 PCOS (polycystic ovarian syndrome) Postcoital bleeding 12/02/2018 Verruca warts (infectious) 08/23/2019 Tetanus received in last 5 years: No Childhood immunizations: Up-to-date Allergies: Allergies Allergen Reactions Gabapentin Anxiety, Diarrhea, Dizziness, Itching, Nausea and/or Vomiting and Shortness of Breath Past Social History: Tobacco Use Former; Cigarettes: Started 2018 Smokeless Tobacco: Never used smokeless tobacco. Vaping Use Some days; Substances: Nicotine, CBD, Flavoring; Devices: Disposable Alcohol Use Not Currently. Comments: 2-3x a week Drug Use No. Sexual Activity Sexually active; Partners: Male; Control/Protection: None. Comments: last intercourse: 03/13/2023 Past Surgical History: Past Surgical History: Procedure Laterality Date ORAL SURGERY PROCEDURE TOOTH EXTRACTION Review of Systems: Review of Systems Constitutional: Positive for fever. Negative for chills. Respiratory: Negative for cough and shortness of breath. Cardiovascular: Negative for chest pain. Gastrointestinal: Positive for diarrhea, nausea and vomiting. Negative for abdominal pain. Genitourinary: Negative for dysuria. Musculoskeletal: Negative for arthralgias, neck pain and neck stiffness. Skin: Negative for wound. Neurological: Negative for dizziness. Psychiatric/Behavioral: Negative for agitation. Endocrine: Negative for goiter. Physical Exam: ED Triage Vitals [04/11/23 1847] Weight 91.1 kg (200 lb 12.8 oz) Actual or estimated Actual Height 1.702 m (5' 7") BP (!) 144/85 Pulse 99 Resp 18 Temp 36.9 ?C (98.4 ?F) Temp source Oral SpO2 100 % Measured on Room air Physical Exam Vitals and nursing note reviewed. Constitutional: Appearance: Normal appearance. She is normal weight. Comments: Smells of marijuana HENT: Head: Normocephalic and atraumatic. Right Ear: Tympanic membrane and ear canal normal. Left Ear: Tympanic membrane and ear canal normal. Nose: Nose normal. Mouth/Throat: Mouth: Mucous membranes are moist. Pharynx: No oropharyngeal exudate or posterior oropharyngeal erythema. Cardiovascular: Rate and Rhythm: Normal rate and regular rhythm. Pulses: Normal pulses. Pulmonary: Effort: Pulmonary effort is normal. No respiratory distress. Breath sounds: No stridor. No wheezing or rhonchi. Abdominal: General: There is no distension. Palpations: Abdomen is soft. There is no mass. Tenderness: There is no abdominal tenderness. There is no guarding or rebound. Hernia: No hernia is present. Musculoskeletal: General: Normal range of motion. Cervical back: Normal range of motion and neck supple. Skin: General: Skin is warm and dry. Neurological: General: No focal deficit present. Mental Status: She is alert and oriented to person, place, and time. Radiology: No orders to display Lab Results: Lab Results POCT TEST - Normal Result Value Ref Range POCT PREG Negative On board controls acceptable with C Line Yes POCT PREG LOT # [id number] POCT PREG TEST DATE 08/15/2024 EKG: If EKG completed, see Procedure Note. Orders and Treatments: Orders Placed This Encounter Procedures POCT TEST Orders Placed This Encounter Medications NaCl 0.9% (NS) bolus infusion 1,000 mL metoclopramide HCl (REGLAN) injection 10 mg metoclopramide HCl 10 mg tablet First Provider Eval: ED Events Date/Time Event User Comments 04/11/231843 Medical Screening Begins SUZANNE ELIZONDO DO -- 04/11/231843 First Provider Evaluation SUZANNE ELIZONDO DO -- No notes of EC Admission Criteria type on file. ED COURSE Diagnosis/Impression as of 04/11/232032 Nausea and vomiting, unspecified vomiting type Procedures: Procedures MDM: Medical Decision Making The patient presents from home for evaluation for nausea as well as fever up to 101 for the past 3 days. She reports on the first day of her symptoms she had diarrhea but none since. No vomiting. She had nothing to eat or drink today due to her severe nausea. No recent trips or travel or bad food exposure. No sick contacts. She denies being and reports her last menstrual period was approximately 1 week ago. She does smoke marijuana and vapes. Vital signs are stable in the ER. Her abdomen is soft and nontender. Differential diagnosis includes , gastroenteritis, food poisoning We will check a UPT and provide the patient with IV fluids and antiemetics. Anticipate discharge home later when able to tolerate by mouth. 2032 -the patient is doing well here in the ER. Her UPT is negative. Her nausea has resolved. She was given a p.o. challenge and able to tolerate by mouth without difficulty. She remained stable here in the ER and is okay for discharge home with PCP follow-up. Recommend the BRAT diet. Problems Addressed: Nausea and vomiting, unspecified vomiting type: acute illness or injury Amount and/or Complexity of Data Reviewed Labs: ordered. Decision-making details documented in ED Course. Risk Prescription drug management. Flowsheet Documentation: Scoring Tools: No data recorded Disposition/Condition: ED Disposition ED Disposition Disch - Home Condition Stable Comment -- Discharge Medications: Patient's Medications START taking these medications METOCLOPRAMIDE HCL 10 MG TABLET Take 1 tablet by mouth every 6 (six) hours as needed for Nausea and Vomiting (N/V). CONTINUE taking these medications which have NOT CHANGED No medications on file START taking Modified Medications as Prescribed No medications on file STOP taking these medications No medications on file Follow-up: Electronically signed by: Suzanne Elizondo DO 04/11/232032 [facility] 2023-03-26 16:00:07 Formatting of this n ote might be different from the original. Patient stated she started having brown discharge 1 week before she starts her cycle. Stated her LMP was 01/05-middle of February. Stated she sometimes has irregular cycles that last about 2 weeks at a time. Informed patient could be normal to have some spotting before or after cycle. Informed patient can come in for evaluation ,pt has appt on 04/03 and will wait for that appt to address issues. ER warnings given, verbalized understanding. Arlene Murillo LVN [facility] 2023-03-26 12:11:45 Formatting of this n ote might be different from the original. Sienna Rodriguez is a 22 year old female is requesting a callback. She says that she has been having some bleeding before her cycle is due. Please call. Thank you. Alia Thomas [facility]
[2024-10-09] MEDS ORDERED: droPERidol 5 MG/2 ML VIAL ONE (22:47)
[2024-10-09 22:56] LABS: Calcium Oxalate Crystals- Ur Many /HPF (None Seen); Specific Gravity > 1.030 (1.005-1.030); Urine Bacteria 20-50 /HPF (<20); Urine Bilirubin NEGATIVE (Negative); Urine Blood 3+ (OVER) (Negative); Urine Clarity Extremely Turbid (Clear); Urine Color Orange (Yellow); Urine Culture Reflex Order NOT NEEDED; Urine Glucose NEGATIVE (Negative); Urine Ketones 1+ (Negative); Urine Microscopic Reflex YN ORDER UMIC; Urine Mucus 3+ /HPF (None Seen); Urine Nitrite NEGATIVE (Negative); Urine Protein 2+ (Negative); Urine RBC >50 /HPF (None Seen); Urine Urobilinogen Normal (Normal); Urine pH 5.5 (5.0-7.0)
[2024-10-09 22:57] LABS: Specific Gravity > 1.030 (1.005-1.030)
[2024-10-09 23:01] LABS: Absolute Basophils 0.1 K/uL (0-0.5); Absolute Eosinophils 0.2 K/uL (0-0.5); Absolute Lymphocytes (CBC) 2.2 K/uL (0.7-4.9); Absolute Monocytes 0.8 K/uL (0.1-1.3); Absolute Neutrophil 13.6 K/uL (1.8-8.0); Basophils % 0.4 % (0-1.3); Eosinophils % 1.5 % (0-4.4); Hematocrit 44.3 % (36.0-45.0); Lymphocytes % 13.2 % (15.3-44.8); MCH 28.5 pg (27.0-35.0); MCHC 33.9 g/dL (32.0-36.0); MCV 83.9 fL (80-100); MPV 8.2 fL (7.6-11.3); Monocytes % 4.5 % (3.3-12.3); Neutrophils % 80.4 % (41.7-73.7); Platelets 388 thou/uL (152-406); RBC Red Blood Cell Count 5.28 M/uL (3.86-4.86)
[2024-10-09 23:03] LABS: Albumin 3.9 g/dL (3.4-5.0); Anion Gap 10.5 mEq/L (5.0-15.0); Bilirubin Total 0.5 mg/dL (0.2-1.0); Potassium 3.5 mEq/L (3.5-5.1); Protein, Total 7.9 g/dL (6.4-8.2)
[2024-10-09 23:49] LABS: PT Prothrombin Time 12.4 SECONDS (10.0-13.0); PTT, Activated Partial Thromb 31.4 SECONDS (24.3-36.9); Protime INR 1.09
--- NOTE | 2024-10-10 00:13 | RAD REPORT ---
EXAM DESCRIPTION: Abdomen Pelvis W Contrast CLINICAL HISTORY: 24 years Female Abdomen pain. COMPARISON: CT Abdomen pelvis WO IV contrast 12/16/2018. TECHNIQUE: Images were obtained in axial, coronal and sagittal planes. Intravenous contrast administration. This exam was performed according to our departmental dose-optimization program which includes use of Automated Exposure Control, adjustment of the mA and/or kV according to patient size and/or use of it erative reconstruction technique. FINDINGS: 1 cm low-attenuation focus posterior right lobe of liver possibly cysts or hemangioma. Unremarkable s pleen, pancreas, gallbladder, or adrenal glands bilaterally. 2 mm calculus distal left ureter just proximal to ureterovesicular junction. Associated mild left hyd ronephrosis and hydroureter with suspected mucosal thickening and edema involving the distal left ureter. Delayed renal function on left. No obstructing renal or ureteral calculi on the right. No hyd ronephrosis on the right. Incompletely distended bladder. Appendix within normal limits. No bowel obstruction, perforation, or inflammation. No acute osseous abnormality. No abnormalities lower lungs bilaterally. No dilatation of abdominal aorta. Unremarkable portal vein. No adenopathy or abnormal fluid collectio ns seen. IMPRESSION: 1. 2 mm calculus distal left ureter just proximal to ureterovesicular junction. Associated mild lef t hydronephrosis and hydroureter. Suspected mucosal thickening and edema involving the distal left ureter. Delayed renal function on left. 2. Otherwise unremarkable study. Electronically signed by: Ann Tanner MD 10/10/2024 12:09 AM [facility] Due to temporary technical issues with the [email or web address] reporting system, reports are being jose d by the in-house radiologist without review as a courtesy to ensure prompt reporting the interpreting radiologist is fully responsible for the content of the report. Transcribed Date/Time: 10/10/2024 12:13 AM
[2024-10-10] MEDS ORDERED: CIPROFLOXACIN 400mg IV 400 MG/200 ML BAG IV ONE (00:22)
[2024-10-10] MEDS ORDERED: TAMSULOSIN 0.4 MG SR CAP ONE (00:22)
[2024-10-10] MEDS ORDERED: KETOROLAC 30 MG/ML INJ ONE (00:25)
--- NOTE | 2024-10-10 00:44 | EDPHYS ---
Physician Documentation [facility] Name: Sienna Rodriguez Age: 24 yrs Sex: Female : 2000 Arrival Date: 10/09/2024 Time: 22:15 Bed 3 Private MD: ED Physician Uche Chavez HPI: 10/09 22:23 This 24 yrs old Female presents to ER via Unassigned with complaints of Abdominal Pain, sb4 Nausea. 22:23 The patient presents with abdominal pain in the left lower quadrant. Onset: The sb4 symptoms/episode began/occurred 2 hour(s) ago. The symptoms do not radiate. Associated signs and symptoms: Pertinent positives: dysuria, nausea. treated for UTI with antibiotics last week, symptoms never resolved, developed LLQ and left flank pain this evening. took motrin and gasx without relief. 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 - Infectious Disease History:: Denies. - Social history:: Smoking status: Reported history of juuling and/or vaping. Patient/guardian denies using alcohol, street drugs, IV drugs. ROS: 22:24 Constitutional: Negative for fever, chills, and weight loss, sb4 22:24 Abdomen/GI: Positive for abdominal pain, nausea, 22:24 Back: Positive for flank pain, on the left, 22:24 : Positive for burning with urination, 22:24 All other systems are negative, Exam: 22:24 Head/Face: Normocephalic, atraumatic. Eyes: Extra-ocular motions intact. Periorbital sb4 areas with no swelling, redness, or edema. ENT: Mucous membranes moist. Cardiovascular: Regular rate and rhythm with a normal S1 and S2. Respiratory: No increased work of breathing, no retractions or nasal flaring. Abdomen/GI: Soft, non-tender, no distension. Skin: Warm, dry with normal turgor. Normal color with no rashes, no lesions, and no evidence of cellulitis. 22:24 Constitutional: The patient appears alert, awake, uncomfortable, 22:24 Back: CVA tenderness, that is mild, is noted on the left, Vital Signs: 22:20 BP 142 / 80; Pulse 99; Resp 18; Temp 97.9; Pulse Ox 97% ; Weight 97.52 kg; Height 5 ft. jj7 5 in. ; Pain 8/10; 10/10 00:10 BP 112 / 65; Pulse 81; Resp 16; Pulse Ox 99% ; dd2 01:42 BP 108 / 63; Pulse 76; Resp 16; Temp 98.3; Pulse Ox 98% on R/A; Pain 1/10; dd2 10/09 22:20 Body Mass Index 35.78 (97.52 kg, 165.1 cm) [facility] 10/09 22:20 Pain Scale: Adult jj7 01:42 Pain Scale: Adult dd2 Jose Coma Score: 10/09 22:38 Eye Response: spontaneous(4). Motor Response: obeys commands(6). Verbal Response: dd2 oriented(5). Total: 15. MDM: 22:19 Medical Screening Exam initiated sb4 23:38 Independent interpretation of the following test(s) in the Emergency Department CT sb4 Scan: My interpretation is my interpretation of the abdomen pelvis CT images is no evidence of pyelonephritis or nephrolithiasis. 10/10 00:18 Data reviewed: vital signs, nurses notes, lab test result(s), radiologic studies, and sb4 as a result, I will discharge patient. Counseling: I had a detailed discussion with the patient and/or guardian regarding the historical points, exam findings, and any diagnostic results supporting the discharge/admit diagnosis, the presence of at least one elevated blood pressure reading (>120/80) during this emergency department visit, lab results, radiology results, the need for outpatient follow up, for definitive care, to return to the emergency department if symptoms worsen or persist or if there are any questions or concerns that arise at home. 10/09 22:22 Order name: CBC with Diff; Complete Time: 23:06 sb4 10/09 22:22 Order name: CMP; Complete Time: 23:06 sb4 10/09 22:22 Order name: Lipase; Complete Time: 23:06 sb4 10/09 22:22 Order name: Test, Urine; Complete Time: 22:59 4 10/09 22:22 Order name: Urinalysis w/ reflexes; Complete Time: 22:59 4 10/09 23:06 Order name: Blood Culture Adult (2) [facility] 10/09 23:06 Order name: Lactate w/ 2H reflex if indic.; Complete Time: 00:02 [facility] 10/09 23:06 Order name: Protime (+inr); Complete Time: 00:02 [facility] 10/09 23:06 Order name: Ptt, Activated; Complete Time: 00:02 [facility] 10/09 22:22 Order name: CT Abd/Pelvis - IV Contrast Only; Complete Time: 00:15 4 10/09 22:22 Order name: IV Saline Lock; Complete Time: 22:38 [facility] 10/09 22:22 Order name: Labs collected and sent; Complete Time: 22:38 sb Administered Medications: 10/09 22:37 Drug: morphine IVP or IV 4 mg IVP once over 4 mins Route: IVP; Infused Over: 4 mins; dd2 Site: right antecubital; 22:53 Follow up: Response: No adverse reaction dd2 22:37 Drug: NS 0.9% IV 1000 ml IV at 1 bolus Per protocol; to be given as a bolus over 60 dd2 minutes Route: IV; Rate: 1 bolus; Site: right antecubital; 22:52 Follow up: Response: No adverse reaction dd2 23:37 Follow up: IV Status: Completed infusion; IV Intake: 1000ml dd2 22:38 Drug: Ondansetron IVP 4 mg IVP once; over 2 minutes Route: IVP; Site: right antecubital;dd2 22:53 Follow up: Response: No adverse reaction dd2 22:48 Drug: Droperidol IVP 1.25 mg IVP once Route: IVP; Site: right antecubital; dd2 10/10 00:36 Drug: Ciprofloxacin IVPB 400 mg 200 ml IVPB once over 60 mins Volume: 200 ml; Route: dd2 IVPB; Infused Over: 60 mins; Site: right antecubital; 00:51 Follow up: Response: No adverse reaction dd2 01:36 Follow up: IV Status: Completed infusion; IV Intake: 100ml dd2 00:36 Drug: Flomax PO 0.4 mg PO once Route: PO; dd2 01:06 Follow up: Response: No adverse reaction dd2 00:36 Drug: Ketorolac IVP 15 mg IVP once Route: IVP; Site: right antecubital; dd2 00:51 Follow up: Response: No adverse reaction dd2 00:42 Not Given (Physician Discretion): ativan2 mg IVP once sb4 Disposition: 03:12 Co-signature as Attending Physician, Uche Chavez MD I agree with the assessment sp4 and plan of care. I reviewed the patient's care provided by the Advanced Practice Provider and agree with the diagnosis and treatment plan. Disposition Summary: 10/10/24 00:44 Discharge Ordered Notes: Location: Home sb4 Problem: new sb4 Symptoms: have improved sb4 Condition: Stable sb4 Diagnosis - UTI/ Urinary tract infection, site not specified sb4 - Calculus of kidney with calculus of ureter - left 2 mm sb4 Followup: sb4 - With: Emergency Department - When: As needed - Reason: Fever > 102 F, Worsening of condition Discharge Instructions: - Discharge Summary Sheet sb4 - Urinary Tract Infection, Adult sb4 - Kidney Stones, [id number] sb4 Forms: - Antibiotic Education sb4 - Prescription Opioid Use sb4 - Patient Portal Instructions sb4 - Leadership Thank You Letter sb4 Prescriptions: - tamsulosin 0.4 mg Oral capsule - take 1 capsule ORAL route every 24 hours; 20 capsule; Refills: 0, Product sb4 Selection Permitted - Cipro 500 mg Oral Tablet - take 1 tablet ORAL route every 12 hours for 7 days; 14 tablet; Refills: 0, sb4 Product Selection Permitted - Tramadol 50 mg Oral Tablet - take 1 tablet ORAL route every 8 hours as needed; 12 tablet; Refills: 0, sb4 Product Selection Permitted - ondansetron 8 mg Oral Tablet,disintegrating - take 1 tablet ORAL route every 8 hours; 10 tablet; Refills: 0, Product sb4 Selection Permitted Signatures: Dispatcher MedHo Dominga Alva RN RN jj7 Brown, Sophia, PA-C PAElsy sb4 Uche Chavez MD MD sp4 TIRSO ROSA RN RN dd2 Corrections: (The following items were deleted from the chart) 10/09 23:07 23:07 BLOOD CULTURE*+BA.LAB.BRZ ordered. EDMS EDMS 23:07 23:07 LACTATE+C.LAB.BRZ ordered. EDMS EDMS 23:07 PROTIME (+INR)+COAG.LAB.BRZ ordered. EDMS EDMS 23:07 PTT, ACTIVATED+COAG.LAB.BRZ ordered. EDMS EDMS
--- NOTE | 2024-10-10 00:44 | ER ---
Nurse's Notes [facility] Kristan Name: Sienna Rodriguez Age: 24 yrs Sex: Female : 2000 Arrival Date: 10/09/2024 Time: 22:15 Bed 3 Private MD: Diagnosis: UTI/ Urinary tract infection, site not specified;Calculus of kidney with calculus of ureter-left 2 mm Presentation: 10/09 22:20 Chief complaint: Patient states: LLQ ABD PAIN THAT RADIATES TO HER BACK STARTED TODAY. jj7 HAD A UTI LAST WEEK AND JUST FINISHED HER ANTIBIOTICS. DOESN'T REMEMBER THE ONE SHE WAS TAKING. Coronavirus screen: At this time, the client does not indicate any symptoms associated with coronavirus-19. Ebola Screen: No symptoms or risks identified at this time. Initial Sepsis Screen: Does the patient meet any 2 criteria? HR > 90 bpm. Yes Does the patient have a suspected source of infection? No. Patient's initial sepsis screen is negative. Risk Assessment: Do you want to hurt yourself or someone else? Patient reports no desire to harm self or others. Onset of symptoms was October 09, 2024. 22:20 Method Of Arrival: Ambulatory [facility] 22:20 Acuity: GATO 3 j7 Triage Assessment: 22:20 General: Appears in no apparent distress. uncomfortable, Behavior is calm, cooperative, jj7 appropriate for age. Pain: Complains of pain in left lower quadrant Pain radiates to left low back. GI: Reports lower abdominal pain, nausea. 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 - Infectious Disease History:: Denies. - Social history:: Smoking status: Reported history of juuling and/or vaping. Patient/guardian denies using alcohol, street drugs, IV drugs. Screenin:33 [facility] ED Fall Risk Assessment (Adult) History of falling in the last 3 months, jj7 including since admission No falls in past 3 months (0 pts) Confusion or Disorientation No (0 pts) Intoxicated or Sedated No (0 pts) Impaired Gait No (0 pts) Mobility Assist Device Used No (0 pt) Altered Elimination No (0 pt) Score/Fall Risk Level 0 - 2 = Low Risk Oriented to surroundings, Maintained a safe environment, Educated pt \T\ family on fall prevention, incl call for assistance when getting out of bed, Assessed \T\ reinforced patient's understanding of fall precautions. Abuse screen: Denies threats or abuse. Nutritional screening: No deficits noted. Tuberculosis screening: No symptoms or risk factors identified. Assessment: 22:31 General: Appears in no apparent distress. uncomfortable, Behavior is cooperative, dd2 appropriate for age, anxious. Pain: Complains of pain in left lower quadrant Pain radiates to left low back Pain currently is 10 out of 10 on a pain scale. Quality of pain is described as sharp, stabbing. Neuro: No deficits noted. Cardiovascular: No deficits noted. Respiratory: No deficits noted. Airway is patent Respiratory effort is even, unlabored, Respiratory pattern is regular, symmetrical. GI: Abdomen is non-distended, Bowel sounds present X 4 quads. Abdomen is tender to palpation in left lower quadrant. : Urine is cloudy, Reports pain in left lower quadrant(s) in lower back. EENT: No deficits noted. No signs and/or symptoms were reported regarding the EENT system. Derm: No deficits noted. No signs and/or symptoms reported regarding the dermatologic system. Musculoskeletal: No deficits noted. No signs and/or symptoms reported regarding the musculoskeletal system. Circulation, motion, and sensation intact. Range of motion: intact in all extremities. 10/10 00:52 Reassessment: Patient and/or family updated on plan of care and expected duration. Pain dd2 level reassessed. Patient is alert, oriented x 3, equal unlabored respirations, skin warm/dry/pink. D/C PENDING IV ANTIBIOTIC COMPLETION Patient states symptoms have improved. Vital Signs: 10/09 22:20 BP 142 / 80; Pulse 99; Resp 18; Temp 97.9; Pulse Ox 97% ; Weight 97.52 kg; Height 5 ft. jj7 5 in. ; Pain 8/10; 10/10 00:10 BP 112 / 65; Pulse 81; Resp 16; Pulse Ox 99% ; dd2 01:42 BP 108 / 63; Pulse 76; Resp 16; Temp 98.3; Pulse Ox 98% on R/A; Pain 1/10; dd2 10/09 22:20 Body Mass Index 35.78 (97.52 kg, 165.1 cm) 7 10/09 22:20 Pain Scale: Adult 7 01:42 Pain Scale: Adult dd2 Ehrhardt Coma Score: 10/09 22:38 Eye Response: spontaneous(4). Motor Response: obeys commands(6). Verbal Response: dd2 oriented(5). Total: 15. ED Course: 22:16 Patient arrived in ED. jj6 22:18 [facility]ie Teran [facility] sb4 22:18 Uche Chavez MD is Attending Physician. sb4 22:20 Arm band placed on right wrist. Patient placed in an exam room, on a stretcher. jj7 22:30 Triage completed. jj7 22:37 TIRSO ROSA RN is Primary Nurse. dd2 22:38 Patient has correct armband on for positive identification. Bed in low position. Call dd2 light in reach. Side rails up X 1. Client placed on continuous cardiac and pulse oximetry monitoring. NIBP monitoring applied. Door closed. Noise minimized. Pillow given. Verbal reassurance given. 22:38 CBC with Diff Sent. dd2 22:38 CMP Sent. dd2 22:38 Lipase Sent. dd2 22:38 Test, Urine Sent. dd2 22:38 Urinalysis w/ reflexes Sent. dd2 22:38 No provider procedures requiring assistance completed. Initial lab(s) drawn, by ne, dd2 sent to lab. Urine collected: clean catch specimen, tristen colored. Inserted saline lock: 20 gauge in right antecubital area, using aseptic technique. Blood collected. Flushed with 10 mL NS. Patient maintains SpO2 saturation greater than 95% on room air. 23:33 CT Abd/Pelvis - IV Contrast Only In Process Unspecified. EDMS 10/10 01:42 Provided Education on: D/C EDUCATION. dd2 01:42 IV discontinued, intact, bleeding controlled, No redness/swelling at site. Pressure dd2 dressing applied. Administered Medications: 10/09 22:37 Drug: morphine IVP or IV 4 mg IVP once over 4 mins Route: IVP; Infused Over: 4 mins; dd2 Site: right antecubital; 22:53 Follow up: Response: No adverse reaction dd2 22:37 Drug: NS 0.9% IV 1000 ml IV at 1 bolus Per protocol; to be given as a bolus over 60 dd2 minutes Route: IV; Rate: 1 bolus; Site: right antecubital; 22:52 Follow up: Response: No adverse reaction dd2 23:37 Follow up: IV Status: Completed infusion; IV Intake: 1000ml dd2 22:38 Drug: Ondansetron IVP 4 mg IVP once; over 2 minutes Route: IVP; Site: right antecubital;dd2 22:53 Follow up: Response: No adverse reaction dd2 22:48 Drug: Droperidol IVP 1.25 mg IVP once Route: IVP; Site: right antecubital; dd2 10/10 00:36 Drug: Ciprofloxacin IVPB 400 mg 200 ml IVPB once over 60 mins Volume: 200 ml; Route: dd2 IVPB; Infused Over: 60 mins; Site: right antecubital; 00:51 Follow up: Response: No adverse reaction dd2 01:36 Follow up: IV Status: Completed infusion; IV Intake: 100ml dd2 00:36 Drug: Flomax PO 0.4 mg PO once Route: PO; dd2 01:06 Follow up: Response: No adverse reaction dd2 00:36 Drug: Ketorolac IVP 15 mg IVP once Route: IVP; Site: right antecubital; dd2 00:51 Follow up: Response: No adverse reaction dd2 00:42 Not Given (Physician Discretion): ativan2 mg IVP once sb4 Medication: 10/09 22:38 VIS not applicable for this client. dd2 Intake: 23:37 IV: 1000ml; Total: 1000ml. dd2 10/10 01:36 IV: 100ml; Total: 1100ml. dd2 Outcome: 00:44 Discharge ordered by . sb4 01:42 Discharged to home ambulatory, dd2 01:42 Condition: good 01:42 Discharge instructions given to patient, Instructed on discharge instructions, follow up and referral plans. medication usage, Demonstrated understanding of instructions, follow-up care, medications, Prescriptions given X 4, 01:44 Patient left the ED. dd2 Signatures: [facility] ED[facility]iley Salas6 Dominga Gaona RN RN jj7 Millie Teran PA-C PA-C sb4 TIRSO ROSA RN RN dd2
[2024-10-10 01:52] VITALS: BP 108/63; TEMP 98.3; O2SAT 98
== END 2024-10-10 01:44 | disposition home or self-care (01) ==
LOC: ER 22:15
DX: N39.0 Urinary tract infection, site not specified (principal); N20.2 Calculus of kidney with calculus of ureter
CPT/HCPCS: 96365; 96361; 87040 ×2; 85025; 81001; 36415; 81025; 85610; 83605; 85730; 83690; 80053; 74177; 96375; 99284; Q9967; J2405; J0744; J1790; J7030

== ENCOUNTER 2024-10-17 07:50 | Emergency (ER) | payer OTHER ==
--- OUTSIDE RECORDS SUMMARY | 2024-10-17 08:04 | XMS REPORT | Continuity of Care Document ---
Author Name Unknown Address [address] [facility] [address] [place] [address] [facility] [address] [facility] [address] [place] [address] Care Team Providers Care Strip Polisher Name Role Phone NESHA MCGOWAN Primary Care Physician Unavaila NESHA Barrera Attending Clinician Unavailable Nesha Trevizo Attending Clinician [phone] RAKAN OCONNOR Attending Clinician Unavailable Rakan Oconnor MD Attending Clinician [phone] Pgy3 Attending Clinician Unavailable ARMANDO BRITO Attending Clinician ARMANDO Mason Attending Clinician Dangelo Choudhary MD Attending Clinician [phone] HANNAH TORRES Attending Clinician Unavailable HANNAH TORRES Attending Clinician Unavailable Brian PLASENCIA, Hannah Attending Clinician [phone] Pob, [facility] Main Attending Clinician Unavailhermes Blas MD, Yaron Attending Clinician [phone] YARON BLAS Attending Clinician Unavailable CHRISTINE EM Attending Clinician Unavailable Shira PLASENCIA, Dangelo Attending Clinician + [phone] Richy CARCASS WASHER, Karen Attending Clinician [phone] SALLIE REYNA Attending Clinician Unavail able Lab, [facility] Attending Clinician Unavailable Akinpiedad [facility] Sallie Bartholomew Attending Clinician + Elida Portillo Attending Clinician [phone] Unknown, Attending Attending Clinician Unavailab ELIDA Greene Attending Clinician Unavailable Tomer Sotelo MD Attending Clinician [phone] Viki Melendrez CNM Attending Clinician [phone] Pgy2 Attending Clinician Unavailable TOMER SOTELO Attending Clinician Unavail able TOMER SOTELO Attending Clinician Unavail able CHANI ZAPIEN Attending Clinician Unavailable Chani Zapien MD Attending Clinician [phone] Pgy3 Attending Clinician Unavailable Lab, Ang - Db Attending Clinician Unavailable Nesha Trevizo Attending Clinician [phone] Brodie Sal MD Attending Clinician [phone] Rashi Moran MD Attending Clinician [phone] RASHI MORAN Attending Clinician Unavailabl VIKI Dwyer Attending Clinician Unavaila ble Visit, [facility] Nurse Attending Clinician Unava ilable Doctor Unassigned, Abiquiu Attending Clinician U SUZANNE Mendes Attending Clinician Unavailab Suzanne Maldonado DO Attending Clinician [phone] SANDRA WANG Attending Clinician Unavailable HAILEY WARE Attending Clinician Unavailab dimple FELIX, Hailey Weinstein Attending Clinician [phone] NORY TOLENTINO Attending Clinician Unavailab FELICIANO Balderas Attending Clinician Unavaila FELICIANO Herrmann Attending Clinician Unavaila ble Sandra Wang MD Attending Clinician [phone], [facility] Lab Attending Clinician Unavailable Hammad BONILLA, Nory Vaz Attending Clinician + [phone] Sunil Montoya DO Attending Clinician [phone] Mikhail BONILLA, Zac Toledo Attending Clinician [phone] GOPAL TOLBERT Attending Clinician Unavailable ZAC ELIZONDO Attending Clinician Unavailhermes Hawley MD, Shu Attending Clinician [phone] Gopal Tolbert PA-C Attending Clinician [phone] Rashi Baker MD Attending Clinician + [phone] Amber Farnsworth MD Attending Clinician [phone] Nurse, [facility] Attending Clinician Un available RASHI BAKER Attending Clinician Unavaila ble RASHI BAKER Attending Clinician Unavaila ble 1, [facility] Lab Attending Clinician Unavailable YARON BLAS Admitting Clinician Unavailable RASHI BAKER Admitting Clinician Unavaila ble Payers Payer Name Policy Type Policy Number Effective Date Expirati on Date Source MEDICAID PENDING PENDING 2022 00:00:00 [facility] [id number] 00:00:00 Problems Condition Name Condition Details Condition Category Status Onset Date Resolution Date Last Treatment Date Treating Clinician Comments Source PCOS (polycysti c ovarian syndrome) PCOS (polycysti c ovarian syndrome) Disease Active 11-18 00:00: 00 [facility] Pain in breast Pain in breast Disease Active 12-12 00:00: 00 [facility] Elevated hemoglobin Elevated hemoglobin Disease Active 11-18 00:00: 00 [facility] Anxiety and depression Anxiety and depression Disease Active 11-02 00:00: 00 [facility] Obesity (BMI 30-39.9) Obesity (BMI 30-39.9) Disease Active - 00:00: 00 [facility] Irregular menstrual cycle Irregular menstrual cycle Disease Active 05-06 00:00: 00 [facility] Tobacco use disorder Tobacco use disorder Disease Active 05-06 00:00: 00 [facility] Verruca warts (infectiou s) Verruca warts (infectiou s) Disease Active 1-11 00:00: 00 Overview: Formattin g of this note might be different from the original. 08/22/2019 - s/p excision of a wart on her mons pubis. Pathology confirmed benign verrucous wart. [facility] Female infertilit y associated with anovulatio n Female infertilit y associated with anovulatio n Disease Active 04-18 00:00: 00 Overview: Formattin g of this note might be different from the original. 04/15/19 - day 3 FSH 6.96, E2 4179/10/29 - HSG normal [facility] Dyspareuni a, female Dyspareuni a, female Disease Active 12-02 00:00: 00 Overview: Formattin g of this note might be different from the original. 12/02/18 - Gabapenti n 300 TID started [facility] Chronic female pelvic pain Chronic female pelvic pain Disease Active 12-02 00:00: 00 [facility] Other general counseling and advice for contracept tomás management Other general counseling and advice for contracept tomás management Disease Resolve d 05-06 00:00: 00 2023-10-18 00:00:00 2023-10-18 09:09:02 [facility] Depression , unspecifie d depression type Depression , unspecifie d depression type Disease Resolve d 11-08 00:00: 00 2023-10-18 00:00:00 2023-10-18 09:08:56 [facility] Anxiety disorder, unspecifie d type Anxiety disorder, unspecifie d type Disease Resolve d 11-08 00:00: 00 2023-10-18 00:00:00 2023-10-18 09:08:57 [facility] Amenorrhea , secondary Amenorrhea , secondary Disease Resolve d 2018-0 8-08 00:00: 00 2019-07-31 00:00:00 2019-07-31 16:14:44 [facility] Gonococcal infection (acute) of lower genitourin avery tract Gonococcal infection (acute) of lower genitourin avery tract Disease Resolve d 2018-0 6-25 00:00: 00 2019-07-31 00:00:00 2019-07-31 16:14:44 [facility] Encounter for IUD removal Encounter for IUD removal Disease Resolve d 0 6-25 00:00: 00 2019-07-31 00:00:00 2019-07-31 16:14:30 [facility] Presence of intrauteri ne contracept tomás device Presence of intrauteri ne contracept tomás device Disease Resolve d 0 5-30 00:00: 00 2019-07-31 00:00:00 2019-07-31 16:14:30 [facility] Postcoital bleeding Postcoital bleeding Disease Resolve d 0 4-22 00:00: 00 2019-07-31 00:00:00 2019-07-31 16:14:49 [facility] Chlamydia trachomati s infection of lower genitourin avery sites Chlamydia trachomati s infection of lower genitourin avery sites Disease Resolve d 0 3-21 00:00: 00 2019-07-31 00:00:00 2019-07-31 16:14:36 [facility] Encounter for counseling regarding contracept ion Encounter for counseling regarding contracept ion Disease Resolve d 0 3-21 00:00: 00 2019-01-09 00:00:00 2019-01-09 11:57:45 [facility] Ruptured membranes, prolonged Ruptured membranes, prolonged Disease Resolve d 2017-0 8-24 00:00: 00 2018-10-31 00:00:00 2018-10-31 15:23:26 [facility] Threatened premature labor Threatened premature labor Disease Resolve d 0 8-14 00:00: 00 2018-10-31 00:00:00 2018-10-31 15:23:25 [facility] Excessive weight gain during in third trimester Excessive weight gain during in third trimester Disease Resolve d 2018-0 7-25 00:00: 00 2018-10-31 00:00:00 2018-10-31 15:23:24 [facility] Supervisio n of high risk in third trimester Supervisio n of high risk in third trimester Disease Resolve d 2018-0 7-12 00:00: 00 2018-10-31 00:00:00 2018-10-31 15:23:20 [facility] Indication for care/inter vention related to labor/deli very, antepartum Indication for care/inter vention related to labor/deli very, antepartum Disease Resolve d 2017-0 7-12 00:00: 00 2018-10-31 00:00:00 2018-10-31 15:23:22 [facility] Primigravi da in third trimester Primigravi da in third trimester Disease Resolve d 2017-0 7-12 00:00: 00 2018-10-31 00:00:00 2018-10-31 15:23:23 [facility] 37 weeks gestation of 37 weeks gestation of Disease Resolve d 2017-0 8-24 00:00: 00 2018-05-20 00:00:00 2018-05-20 11:39:45 [facility] Liveborn by vaginal delivery Liveborn by vaginal delivery Disease Resolve d 2017-0 8-24 00:00: 00 2018-05-20 00:00:00 2018-05-20 11:39:45 [facility] 36 weeks gestation of 36 weeks gestation of Disease Resolve d 2017-0 8-15 00:00: 00 2018-05-20 00:00:00 2018-05-20 11:39:45 [facility] Positive GBS test Positive GBS test Disease Resolve d 2017-0 8-15 00:00: 00 2018-05-20 00:00:00 2018-05-20 11:39:45 [facility] 31 weeks gestation of 31 weeks gestation of Disease Resolve d 2017-0 7-11 00:00: 00 2018-05-20 00:00:00 2018-05-20 11:39:45 [facility] labor in third trimester without delivery labor in third trimester without delivery Disease Resolve d 2017- 7-11 00:00: 00 2018-05-20 00:00:00 2018-05-20 11:39:45 [facility] Allergies, Adverse Reactions, Alerts Allergy Name Allergy Type Status Severity Reaction(s) Onset Date Inactive Date Treating Clinician Comments Source Gabapent in Propensi ty to adverse reaction s Active Shortness of Breath 04-03 00:00: 00 [facility] GABAPENT IN DRUG INGREDI Active Anxiety 04-03 00:00: 00 [facility] Family History Family Member Diagnosis Comments Start Date Stop Date Sourc e Natural father Asthma Un[facility] Maternal grandfather Arthritis [facility] Maternal grandfather Diabetes [facility] Maternal grandfather Hypertension [facility] Maternal grandmother Arthritis [facility] Natural mother Asthma Un[facility] Hy[facility] Paternal grandfather [facility] Paternal grandmother [facility] Social History Social Habit Start Date Stop Date Quantity Comments Source History of tobacco use Cigarette Smoker [facility] Gender identity [facility] of Social function 2024-10-01 00:00:00 2024-10-01 00:00:00 [facility] Alcoholic beverage intake 2024-10-01 00:00:00 2024-10-01 00:00:00 Ex-drinker (finding) [facility] Tobacco use and exposure 2023-12-17 00:00:00 2023-12-17 00:00:00 Smokeless tobacco non-user [facility] Alcohol intake 2023-12-04 00:00:00 2023-12-04 00:00:00 Ex-drinker (finding) [facility] Exposure to SARS-CoV-2 (event) 2022-12-19 00:00:00 2022-12-29 13:43:00 Not sure [facility] Alcohol Comment 2021-11-02 00:00:00 2021-11-02 00:00:00 2-3x a week [facility] History SDOH Alcohol Frequency 2020-05-06 00:00:00 2020-05-06 00:00:00 99 [facility] History SDOH Alcohol Std Drinks 2020-05-06 00:00:00 2020-05-06 00:00:00 99 [facility] History SDOH Alcohol Binge 2020-05-06 00:00:00 2020-05-06 00:00:00 99 [facility] Sex assigned at 2000 00:00:00 2000 00:00:00 [facility] Smoking Status Start Date Stop Date Source Ex-smoker 2023-12-17 00:00:00 2023-12-17 00:00:00 U [facility] Medications Ordered Medication Name Filled Medication Name Start Date Stop Date Current Medication? Ordering Clinician Indication Dosage Frequency Signature (SIG) Comments Components Source cefUROXime 250 mg tablet 10-01 00:00: 00 10-09 05:59 :00 Yes [id number] 250mg Take 1 tablet by mouth in the morning and 1 tablet in the evening. Do all this for 7 days. [facility] SERTraline 50 mg tablet 2023-08 00:00: 00 11-02 04:59 :00 No [id number] 50mg Take 1 tablet by mouth in the morning for 120 days. [facility] SERTraline 25 mg tablet 2023-08 0- 00:00: 00 Yes [id number] 25mg Take 1 tablet by mouth in the morning. [facility] letrozole 2.5 mg tablet 2023-08 0-11 00:00: 00 05-29 04:59 :00 No [id number] 7.5mg Take 3 tablets by mouth daily [facility] letrozole 2.5 mg tablet - 00:00: 00 04-06 04:59 :00 No [id number] 7.5mg Take 3 tablets by mouth daily [facility] medroxyPROG ESTERone (PROVERA) 10 mg tablet 7- 00:00: 00 Yes [id number] 10mg Take 1 tablet by mouth in the morning. [facility] letrozole 2.5 mg tablet 03 00:00: 00 02-18 04:59 :00 No [id number] 7.5mg Take 3 tablets by mouth daily [facility] bromphenira mine-pseudo ephedrine-D M (BROMFED DM) 2-30-10 mg/5 mL syrup 01-07 00:00: 00 01-18 04:59 :00 No [id number] 10mL Take 10 mL by mouth 4 (four) times daily for 10 days. [facility] Guaifenesin (MUCINEX) 1,200 mg tablet 01-07 00:00: 00 01-15 04:59 :00 No [id number] 1200mg Take 1 tablet by mouth in the morning and 1 tablet in the evening. Do all this for 7 days. [facility] medroxyPROG ESTERone (PROVERA) 10 mg tablet 12-30 00:00: 00 Yes [id number] 10mg Take 1 tablet by mouth in the morning. [facility] letrozole 2.5 mg tablet 12-30 00:00: 00 01-05 04:59 :00 No [id number] 5mg Take 2 tablets by mouth daily [facility] iopamidol (ISOVUE 300-100 mL) injection 50 mL 12-13 18:15: 00 12-13 17:25 :00 No [id number] 50mL 50 mL, Cervix, ONCE, 1 dose, On Sun12/14/23 at 1315, Routine [facility] galcanezuma b-gnlm prefilled (EMGALITY) subcutaneou s injection 12-06 00:00: 00 Yes [id number] 240mg inject 240 mg under the skin once every month. [facility] topiramate 25 mg tablet 12-06 00:00: 00 12-24 00:00 :00 No [id number] 25mg Take 1 tablet by mouth in the morning and 1 tablet in the evening. Do all this for 335 days. [facility] PROGESTERON E MICRONIZED ORAL 11-29 13:34: 26 12-03 00:00 :00 No Take by mouth. [facility] medroxyPROG ESTERone (PROVERA) 10 mg tablet 11-18 00:00: 11-29 04:59 :00 No [id number] 10mg Take 1 tablet by mouth in the morning for 10 days. [facility] letrozole 2.5 mg tablet 11-18 00:00: 11-24 04:59 :00 No [id number] 2.5mg Take 1 tablet by mouth daily [facility] No contrast administere d 11-06 17:30: 00 11-06 16:40 :00 No [id number] Intravenou s, ONCE, 1 dose, On Sun11/07/23 at 1230, Routine [facility] medroxyPROG ESTERone (PROVERA) 10 mg tablet 10-16 00:00: 10-27 04:59 :00 No [id number] 10mg Take 1 tablet by mouth in the morning for 10 days. [facility] Guaifenesin (MUCINEX) 1,200 mg tablet 10-09 00:00: 00 10-16 05:59 :00 No [id number] 1200mg Take 1 tablet by mouth in the morning and 1 tablet in the evening. Do all this for 7 days. [facility] cetirizine (ZYRTEC) 10 mg tablet 10-09 00:00: 00 10-16 05:59 :00 No [id number] 10mg Take 1 tablet by mouth in the morning for 7 days. [facility] predniSONE 20 mg tablet 10-09 00:00: 00 10-14 05:59 :00 No [id number] 40mg Take 2 tablets by mouth in the morning for 5 days. [facility] fluticasone propionate 50 mcg/actuati on nasal spray 10-09 00:00: 00 10-14 05:59 :00 No [id number] 2{spray } Use 2 Sprays in each nostril in the morning for 5 days. [facility] NaCl 0.9% (NS) bolus infusion 1,000 mL 04-12 00:45: 00 04-12 01:19 :00 No 1000mL at 999 mL/hr, 1,000 mL, IV Infusion, ONCE, 1 dose, On Sun04/11/23 at 1945, [facility] metoclopram yusuf HCl (REGLAN) injection 10 mg 04-12 00:00: 00 04-12 00:14 :00 No 10mg 10 mg, Slow IV Push, ONCE, 1 dose, On Sun04/11/23 at 1900, [facility] metoclopram yusuf HCl 10 mg tablet 04-11 00:00: 00 10-17 00:00 :00 No [id number] 10mg Take 1 tablet by mouth every 6 (six) hours as needed for Nausea and Vomiting (N/V). [facility] metroNIDAZO LE 500 mg tablet 01-02 00:00: 00 03-14 00:00 :00 No [id number] 500mg Take 1 tablet by mouth in the morning and 1 tablet in the evening. [facility] fluconazole (DIFLUCAN) 150 mg tablet 01-02 00:00: 00 01-03 04:59 :00 No [id number] 150mg Take 1 tablet by mouth once now for 1 dose. [facility] norgestimat e-ethinyl estradioL (ORTHO TRI-CYCLEN LO, 28,) 0.18/0.215/ 0.25 mg-25 mcg tablet 1-26 00:00: 00 03-14 00:00 :00 No [id number] 1{tbl} Take 1 tablet by mouth in the morning. [facility] Nitrofurant oin&Nit. Macrocryst (MACROBID) 100 mg capsule 2021-08 2-15 00:00: 00 03-14 00:00 :00 No [id number] 100mg Take 1 capsule by mouth in the morning and 1 capsule in the evening. [facility] buPROPion SR (WELLBUTRIN SR) 150 mg SR tablet 2021-08 00:00: 00 03-14 00:00 :00 No [id number] 150mg Take 1 tablet by mouth in the morning and 1 tablet in the evening. [facility] medroxyPROG ESTERone (DEPO-PROVE RA) injection 150 mg 2021-08 19:45: 00 08-08 20:44 :00 No [id number] 150mg [facility] levonorgest reL (MIRENA) IUD 1 Device 11-30 22:00: 00 11-30 20:50 :00 No [id number] 1{devic e} [facility] metroNIDAZO LE 500 mg tablet 11-04 00:00: 00 11-30 00:00 :00 No [id number] 500mg Take 1 tablet by mouth every 12 (twelve) hours. [facility] loratadine 10 mg tablet 11-03 00:00: 00 03-14 00:00 :00 No [id number] 10mg Take 1 tablet by mouth daily. [facility] benzonatate (TESSALON PERLES) 100 mg capsule 11-03 00:00: 00 03-14 00:00 :00 No [id number] 100mg Take 1 capsule by mouth every 8 (eight) hours as needed for Cough. [facility] Immunizations Ordered Immunization Name Filled Immunization Name Date Status Comments Source SARS-COV-2 COVID-19 VACCINE - (MODERNA) 2021-05-07 00:00:00 Completed [facility] SARS-COV-2 COVID-19 VACCINE - (MODERNA) 2021-05-07 00:00:00 Completed [facility] SARS-COV-2 COVID-19 VACCINE - (MODERNA) 2021-05-07 00:00:00 Completed [facility] SARS-COV-2 COVID-19 VACCINE - (MODERNA) 2021-05-07 00:00:00 Completed [facility] SARS-COV-2 COVID-19 VACCINE - (MODERNA) 2021-05-07 00:00:00 Completed [facility] SARS-COV-2 COVID-19 VACCINE - (MODERNA) 2021-05-07 00:00:00 Completed [facility] SARS-COV-2 COVID-19 VACCINE - (MODERNA) 2021-05-07 00:00:00 Completed [facility] SARS-COV-2 COVID-19 VACCINE - (MODERNA) 2021-05-07 00:00:00 Completed [facility] SARS-COV-2 COVID-19 VACCINE - (MODERNA) 2021-05-07 00:00:00 Completed [facility] SARS-COV-2 COVID-19 VACCINE - (MODERNA) 2021-05-07 00:00:00 Completed [facility] SARS-COV-2 COVID-19 VACCINE - (MODERNA) 2021-05-07 00:00:00 Completed [facility] SARS-COV-2 COVID-19 VACCINE - (MODERNA) 2021-05-07 00:00:00 Completed [facility] SARS-COV-2 COVID-19 PFIZER VACCINE 2021-05-04 00:00:00 Completed [facility] SARS-COV-2 COVID-19 PFIZER VACCINE 2021-05-04 00:00:00 Completed [facility] SARS-COV-2 COVID-19 PFIZER VACCINE 2021-05-04 00:00:00 Completed [facility] SARS-COV-2 COVID-19 PFIZER VACCINE 2021-05-04 00:00:00 Completed [facility] SARS-COV-2 COVID-19 PFIZER VACCINE 2021-05-04 00:00:00 Completed [facility] SARS-COV-2 COVID-19 PFIZER VACCINE 2021-05-04 00:00:00 Completed [facility] SARS-COV-2 COVID-19 PFIZER VACCINE 2021-05-04 00:00:00 Completed [facility] SARS-COV-2 COVID-19 PFIZER VACCINE 2021-05-04 00:00:00 Completed [facility] SARS-COV-2 COVID-19 PFIZER VACCINE 2021-05-04 00:00:00 Completed [facility] SARS-COV-2 COVID-19 PFIZER VACCINE 2021-05-04 00:00:00 Completed [facility] SARS-COV-2 COVID-19 PFIZER VACCINE 2021-05-04 00:00:00 Completed [facility] SARS-COV-2 COVID-19 PFIZER VACCINE 2021-05-04 00:00:00 Completed [facility] SARS-COV-2 COVID-19 PFIZER VACCINE 2021-05-04 00:00:00 Completed [facility] SARS-COV-2 COVID-19 PFIZER VACCINE 2021-05-04 00:00:00 Completed [facility] SARS-COV-2 COVID-19 PFIZER VACCINE 2021-05-04 00:00:00 Completed [facility] SARS-COV-2 COVID-19 PFIZER VACCINE 2021-05-04 00:00:00 Completed [facility] SARS-COV-2 COVID-19 PFIZER VACCINE 2021-05-04 00:00:00 Completed [facility] SARS-COV-2 COVID-19 PFIZER VACCINE 2021-05-04 00:00:00 Completed [facility] SARS-COV-2 COVID-19 PFIZER VACCINE 2021-05-04 00:00:00 Completed [facility] SARS-COV-2 COVID-19 PFIZER VACCINE 2021-05-04 00:00:00 Completed [facility] SARS-COV-2 COVID-19 PFIZER VACCINE 2021-05-04 00:00:00 Completed SARS-COV-2 COVID-19 PFIZER VACCINE 2021-05-04 00:00:00 Completed SARS-COV-2 COVID-19 PFIZER VACCINE 2021-05-04 00:00:00 Completed [facility] SARS-COV-2 COVID-19 PFIZER VACCINE 2021-05-04 00:00:00 Completed [facility] SARS-COV-2 COVID-19 PFIZER VACCINE 2021-05-04 00:00:00 Completed [facility] SARS-COV-2 COVID-19 PFIZER VACCINE 2021-05-04 00:00:00 Completed [facility] SARS-COV-2 COVID-19 PFIZER VACCINE 2021-04-13 00:00:00 Completed [facility] SARS-COV-2 COVID-19 PFIZER VACCINE 2021-04-13 00:00:00 Completed [facility] SARS-COV-2 COVID-19 PFIZER VACCINE 2021-04-13 00:00:00 Completed [facility] SARS-COV-2 COVID-19 PFIZER VACCINE 2021-04-13 00:00:00 Completed [facility] SARS-COV-2 COVID-19 PFIZER VACCINE 2021-04-13 00:00:00 Completed [facility] SARS-COV-2 COVID-19 PFIZER VACCINE 2021-04-13 00:00:00 Completed [facility] SARS-COV-2 COVID-19 PFIZER VACCINE 2021-04-13 00:00:00 Completed [facility] SARS-COV-2 COVID-19 PFIZER VACCINE 2021-04-13 00:00:00 Completed [facility] SARS-COV-2 COVID-19 PFIZER VACCINE 2021-04-13 00:00:00 Completed [facility] SARS-COV-2 COVID-19 PFIZER VACCINE 2021-04-13 00:00:00 Completed [facility] SARS-COV-2 COVID-19 PFIZER VACCINE 2021-04-13 00:00:00 Completed [facility] SARS-COV-2 COVID-19 PFIZER VACCINE 2021-04-13 00:00:00 Completed SARS-COV-2 COVID-19 PFIZER VACCINE 2021-04-13 00:00:00 Completed SARS-COV-2 COVID-19 PFIZER VACCINE 2021-04-13 00:00:00 Completed [facility] SARS-COV-2 COVID-19 PFIZER VACCINE 2021-04-13 00:00:00 Completed [facility] SARS-COV-2 COVID-19 PFIZER VACCINE 2021-04-13 00:00:00 Completed [facility] SARS-COV-2 COVID-19 PFIZER VACCINE 2021-04-13 00:00:00 Completed [facility] SARS-COV-2 COVID-19 PFIZER VACCINE 2021-04-13 00:00:00 Completed [facility] SARS-COV-2 COVID-19 PFIZER VACCINE 2021-04-13 00:00:00 Completed [facility] SARS-COV-2 COVID-19 PFIZER VACCINE 2021-04-13 00:00:00 Completed [facility] SARS-COV-2 COVID-19 PFIZER VACCINE 2021-04-13 00:00:00 Completed [facility] SARS-COV-2 COVID-19 PFIZER VACCINE 2021-04-13 00:00:00 Completed [facility] SARS-COV-2 COVID-19 PFIZER VACCINE 2021-04-13 00:00:00 Completed [facility] SARS-COV-2 COVID-19 PFIZER VACCINE 2021-04-13 00:00:00 Completed [facility] SARS-COV-2 COVID-19 PFIZER VACCINE 2021-04-13 00:00:00 Completed [facility] SARS-COV-2 COVID-19 PFIZER VACCINE 2021-04-13 00:00:00 Completed [facility] SARS-COV-2 COVID-19 VACCINE - (MODERNA) 2021-04-09 00:00:00 Completed [facility] SARS-COV-2 COVID-19 VACCINE - (MODERNA) 2021-04-09 00:00:00 Completed [facility] SARS-COV-2 COVID-19 VACCINE - (MODERNA) 2021-04-09 00:00:00 Completed [facility] SARS-COV-2 COVID-19 VACCINE - (MODERNA) 2021-04-09 00:00:00 Completed [facility] SARS-COV-2 COVID-19 VACCINE - (MODERNA) 2021-04-09 00:00:00 Completed [facility] SARS-COV-2 COVID-19 VACCINE - (MODERNA) 2021-04-09 00:00:00 Completed [facility] SARS-COV-2 COVID-19 VACCINE - (MODERNA) 2021-04-09 00:00:00 Completed [facility] SARS-COV-2 COVID-19 VACCINE - (MODERNA) 2021-04-09 00:00:00 Completed [facility] SARS-COV-2 COVID-19 VACCINE - (MODERNA) 2021-04-09 00:00:00 Completed [facility] SARS-COV-2 COVID-19 VACCINE - (MODERNA) 2021-04-09 00:00:00 Completed [facility] SARS-COV-2 COVID-19 VACCINE - (MODERNA) 2021-04-09 00:00:00 Completed SARS-COV-2 COVID-19 VACCINE - (MODERNA) 2021-04-09 00:00:00 Completed Meningococcal Polysaccharide (groups A, C, Y and W-135) conjugate vaccine (MCV4P) 2019-04-10 00:00:00 Completed [facility] Meningococcal Polysaccharide (groups A, C, Y and W-135) conjugate vaccine (MCV4P) 2019-04-10 00:00:00 Completed [facility] Meningococcal Polysaccharide (groups A, C, Y and W-135) conjugate vaccine (MCV4P) 2019-04-10 00:00:00 Completed [facility] Meningococcal Polysaccharide (groups A, C, Y and W-135) conjugate vaccine (MCV4P) 2019-04-10 00:00:00 Completed [facility] Meningococcal Polysaccharide (groups A, C, Y and W-135) conjugate vaccine (MCV4P) 2019-04-10 00:00:00 Completed [facility] Meningococcal Polysaccharide (groups A, C, Y and W-135) conjugate vaccine (MCV4P) 2019-04-10 00:00:00 Completed [facility] Meningococcal Polysaccharide (groups A, C, Y and W-135) conjugate vaccine (MCV4P) 2019-04-10 00:00:00 Completed [facility] Meningococcal Polysaccharide (groups A, C, Y and W-135) conjugate vaccine (MCV4P) 2019-04-10 00:00:00 Completed [facility] Meningococcal Polysaccharide (groups A, C, Y and W-135) conjugate vaccine (MCV4P) 2019-04-10 00:00:00 Completed [facility] Meningococcal Polysaccharide (groups A, C, Y and W-135) conjugate vaccine (MCV4P) 2019-04-10 00:00:00 Completed [facility] Meningococcal Polysaccharide (groups A, C, Y and W-135) conjugate vaccine (MCV4P) 2019-04-10 00:00:00 Completed [facility] Meningococcal Polysaccharide (groups A, C, Y and W-135) conjugate vaccine (MCV4P) 2019-04-10 00:00:00 Completed [facility] Meningococcal Polysaccharide (groups A, C, Y and W-135) conjugate vaccine (MCV4P) 2019-04-10 00:00:00 Completed [facility] Meningococcal Polysaccharide (groups A, C, Y and W-135) conjugate vaccine (MCV4P) 2019-04-10 00:00:00 Completed [facility] Meningococcal Polysaccharide (groups A, C, Y and W-135) conjugate vaccine (MCV4P) 2019-04-10 00:00:00 Completed [facility] Meningococcal Polysaccharide (groups A, C, Y and W-135) conjugate vaccine (MCV4P) 2019-04-10 00:00:00 Completed [facility] Meningococcal Polysaccharide (groups A, C, Y and W-135) conjugate vaccine (MCV4P) 2019-04-10 00:00:00 Completed [facility] Meningococcal Polysaccharide (groups A, C, Y and W-135) conjugate vaccine (MCV4P) 2019-04-10 00:00:00 Completed [facility] Meningococcal Polysaccharide (groups A, C, Y and W-135) conjugate vaccine (MCV4P) 2019-04-10 00:00:00 Completed [facility] Meningococcal Polysaccharide (groups A, C, Y and W-135) conjugate vaccine (MCV4P) 2019-04-10 00:00:00 Completed [facility] Meningococcal Polysaccharide (groups A, C, Y and W-135) conjugate vaccine (MCV4P) 2019-04-10 00:00:00 Completed [facility] Meningococcal Polysaccharide (groups A, C, Y and W-135) conjugate vaccine (MCV4P) 2019-04-10 00:00:00 Completed Meningococcal Polysaccharide (groups A, C, Y and W-135) conjugate vaccine (MCV4P) 2019-04-10 00:00:00 Completed Meningococcal Polysaccharide (groups A, C, Y and W-135) conjugate vaccine (MCV4P) 2019-04-10 00:00:00 Completed [facility] Meningococcal Polysaccharide (groups A, C, Y and W-135) conjugate vaccine (MCV4P) 2019-04-10 00:00:00 Completed [facility] Meningococcal Polysaccharide (groups A, C, Y and W-135) conjugate vaccine (MCV4P) 2019-04-10 00:00:00 Completed [facility] TDAP 2018-02-07 00:00:00 Completed [facility] TDAP 2018-02-07 00:00:00 Completed [facility] TDAP 2018-02-07 00:00:00 Completed [facility] TDAP 2018-02-07 00:00:00 Completed [facility] TDAP 2018-02-07 00:00:00 Completed [facility] TDAP 2018-02-07 00:00:00 Completed [facility] TDAP 2018-02-07 00:00:00 Completed [facility] TDAP 2018-02-07 00:00:00 Completed [facility] TDAP 2018-02-07 00:00:00 Completed [facility] TDAP 2018-02-07 00:00:00 Completed [facility] TDAP 2018-02-07 00:00:00 Completed [facility] TDAP 2018-02-07 00:00:00 Completed [facility] TDAP 2018-02-07 00:00:00 Completed [facility] TDAP 2018-02-07 00:00:00 Completed [facility] TDAP 2018-02-07 00:00:00 Completed [facility] TDAP 2018-02-07 00:00:00 Completed [facility] TDAP 2018-02-07 00:00:00 Completed [facility] TDAP 2018-02-07 00:00:00 Completed [facility] TDAP 2018-02-07 00:00:00 Completed [facility] TDAP 2018-02-07 00:00:00 Completed [facility] TDAP 2018-02-07 00:00:00 Completed [facility] TDAP 2018-02-07 00:00:00 Completed [facility] TDAP 2018-02-07 00:00:00 Completed [facility] TDAP 2018-02-07 00:00:00 Completed [facility] TDAP 2018-02-07 00:00:00 Completed [facility] TDAP 2018-02-07 00:00:00 Completed [facility] HPV 2013-07-24 00:00:00 Completed [facility] HPV 2013-07-24 00:00:00 Completed [facility] HPV 2013-07-24 00:00:00 Completed [facility] HPV 2013-07-24 00:00:00 Completed [facility] HPV 2013-07-24 00:00:00 Completed [facility] HPV 2013-07-24 00:00:00 Completed [facility] HPV 2013-07-24 00:00:00 Completed [facility] HPV 2013-07-24 00:00:00 Completed [facility] HPV 2013-07-24 00:00:00 Completed [facility] HPV 2013-07-24 00:00:00 Completed [facility] HPV 2013-07-24 00:00:00 Completed [facility] HPV 2013-07-24 00:00:00 Completed [facility] HPV 2013-07-24 00:00:00 Completed [facility] HPV 2013-07-24 00:00:00 Completed [facility] HPV 2013-07-24 00:00:00 Completed [facility] HPV 2013-07-24 00:00:00 Completed [facility] HPV 2013-07-24 00:00:00 Completed [facility] HPV 2013-07-24 00:00:00 Completed [facility] HPV 2013-07-24 00:00:00 Completed [facility] HPV 2013-07-24 00:00:00 Completed [facility] HPV 2013-07-24 00:00:00 Completed [facility] HPV 2013-07-24 00:00:00 Completed HPV 2013-07-24 00:00:00 Completed HPV 2013-07-24 00:00:00 Completed [facility] HPV 2013-07-24 00:00:00 Completed [facility] HPV 2013-07-24 00:00:00 Completed [facility] HPV 2013-04-16 00:00:00 Completed [facility] HPV 2013-04-16 00:00:00 Completed [facility] HPV 2013-04-16 00:00:00 Completed [facility] HPV 2013-04-16 00:00:00 Completed [facility] HPV 2013-04-16 00:00:00 Completed [facility] HPV 2013-04-16 00:00:00 Completed [facility] HPV 2013-04-16 00:00:00 Completed [facility] HPV 2013-04-16 00:00:00 Completed [facility] HPV 2013-04-16 00:00:00 Completed [facility] HPV 2013-04-16 00:00:00 Completed [facility] HPV 2013-04-16 00:00:00 Completed [facility] HPV 2013-04-16 00:00:00 Completed [facility] HPV 2013-04-16 00:00:00 Completed [facility] HPV 2013-04-16 00:00:00 Completed [facility] HPV 2013-04-16 00:00:00 Completed [facility] HPV 2013-04-16 00:00:00 Completed [facility] HPV 2013-04-16 00:00:00 Completed [facility] HPV 2013-04-16 00:00:00 Completed [facility] HPV 2013-04-16 00:00:00 Completed [facility] HPV 2013-04-16 00:00:00 Completed [facility] HPV 2013-04-16 00:00:00 Completed [facility] HPV 2013-04-16 00:00:00 Completed HPV 2013-04-16 00:00:00 Completed HPV 2013-04-16 00:00:00 Completed [facility] HPV 2013-04-16 00:00:00 Completed [facility] HPV 2013-04-16 00:00:00 Completed [facility] HPV 2013-01-21 00:00:00 Completed [facility] Meningococcal Polysaccharide (groups A, C, Y and W-135) conjugate vaccine (MCV4P) 2013-01-21 00:00:00 Completed [facility] TDAP 2013-01-21 00:00:00 Completed [facility] HPV 2013-01-21 00:00:00 Completed [facility] Meningococcal Polysaccharide (groups A, C, Y and W-135) conjugate vaccine (MCV4P) 2013-01-21 00:00:00 Completed [facility] TDAP 2013-01-21 00:00:00 Completed [facility] HPV 2013-01-21 00:00:00 Completed [facility] Meningococcal Polysaccharide (groups A, C, Y and W-135) conjugate vaccine (MCV4P) 2013-01-21 00:00:00 Completed [facility] TDAP 2013-01-21 00:00:00 Completed [facility] HPV 2013-01-21 00:00:00 Completed [facility] Meningococcal Polysaccharide (groups A, C, Y and W-135) conjugate vaccine (MCV4P) 2013-01-21 00:00:00 Completed [facility] TDAP 2013-01-21 00:00:00 Completed [facility] HPV 2013-01-21 00:00:00 Completed [facility] Meningococcal Polysaccharide (groups A, C, Y and W-135) conjugate vaccine (MCV4P) 2013-01-21 00:00:00 Completed [facility] TDAP 2013-01-21 00:00:00 Completed [facility] HPV 2013-01-21 00:00:00 Completed [facility] Meningococcal Polysaccharide (groups A, C, Y and W-135) conjugate vaccine (MCV4P) 2013-01-21 00:00:00 Completed [facility] TDAP 2013-01-21 00:00:00 Completed [facility] HPV 2013-01-21 00:00:00 Completed [facility] Meningococcal Polysaccharide (groups A, C, Y and W-135) conjugate vaccine (MCV4P) 2013-01-21 00:00:00 Completed [facility] TDAP 2013-01-21 00:00:00 Completed [facility] HPV 2013-01-21 00:00:00 Completed [facility] Meningococcal Polysaccharide (groups A, C, Y and W-135) conjugate vaccine (MCV4P) 2013-01-21 00:00:00 Completed [facility] TDAP 2013-01-21 00:00:00 Completed [facility] HPV 2013-01-21 00:00:00 Completed [facility] Meningococcal Polysaccharide (groups A, C, Y and W-135) conjugate vaccine (MCV4P) 2013-01-21 00:00:00 Completed [facility] TDAP 2013-01-21 00:00:00 Completed [facility] HPV 2013-01-21 00:00:00 Completed [facility] Meningococcal Polysaccharide (groups A, C, Y and W-135) conjugate vaccine (MCV4P) 2013-01-21 00:00:00 Completed [facility] TDAP 2013-01-21 00:00:00 Completed [facility] HPV 2013-01-21 00:00:00 Completed [facility] Meningococcal Polysaccharide (groups A, C, Y and W-135) conjugate vaccine (MCV4P) 2013-01-21 00:00:00 Completed [facility] TDAP 2013-01-21 00:00:00 Completed [facility] HPV 2013-01-21 00:00:00 Completed [facility] Meningococcal Polysaccharide (groups A, C, Y and W-135) conjugate vaccine (MCV4P) 2013-01-21 00:00:00 Completed [facility] TDAP 2013-01-21 00:00:00 Completed [facility] HPV 2013-01-21 00:00:00 Completed [facility] Meningococcal Polysaccharide (groups A, C, Y and W-135) conjugate vaccine (MCV4P) 2013-01-21 00:00:00 Completed [facility] TDAP 2013-01-21 00:00:00 Completed [facility] HPV 2013-01-21 00:00:00 Completed [facility] Meningococcal Polysaccharide (groups A, C, Y and W-135) conjugate vaccine (MCV4P) 2013-01-21 00:00:00 Completed [facility] TDAP 2013-01-21 00:00:00 Completed [facility] HPV 2013-01-21 00:00:00 Completed [facility] Meningococcal Polysaccharide (groups A, C, Y and W-135) conjugate vaccine (MCV4P) 2013-01-21 00:00:00 Completed [facility] TDAP 2013-01-21 00:00:00 Completed [facility] HPV 2013-01-21 00:00:00 Completed [facility] Meningococcal Polysaccharide (groups A, C, Y and W-135) conjugate vaccine (MCV4P) 2013-01-21 00:00:00 Completed [facility] TDAP 2013-01-21 00:00:00 Completed [facility] HPV 2013-01-21 00:00:00 Completed [facility] Meningococcal Polysaccharide (groups A, C, Y and W-135) conjugate vaccine (MCV4P) 2013-01-21 00:00:00 Completed [facility] TDAP 2013-01-21 00:00:00 Completed [facility] HPV 2013-01-21 00:00:00 Completed [facility] Meningococcal Polysaccharide (groups A, C, Y and W-135) conjugate vaccine (MCV4P) 2013-01-21 00:00:00 Completed [facility] TDAP 2013-01-21 00:00:00 Completed [facility] HPV 2013-01-21 00:00:00 Completed [facility] Meningococcal Polysaccharide (groups A, C, Y and W-135) conjugate vaccine (MCV4P) 2013-01-21 00:00:00 Completed [facility] TDAP 2013-01-21 00:00:00 Completed [facility] HPV 2013-01-21 00:00:00 Completed [facility] Meningococcal Polysaccharide (groups A, C, Y and W-135) conjugate vaccine (MCV4P) 2013-01-21 00:00:00 Completed [facility] TDAP 2013-01-21 00:00:00 Completed [facility] HPV 2013-01-21 00:00:00 Completed [facility] Meningococcal Polysaccharide (groups A, C, Y and W-135) conjugate vaccine (MCV4P) 2013-01-21 00:00:00 Completed [facility] TDAP 2013-01-21 00:00:00 Completed [facility] HPV 2013-01-21 00:00:00 Completed Meningococcal Polysaccharide (groups A, C, Y and W-135) conjugate vaccine (MCV4P) 2013-01-21 00:00:00 Completed TDAP 2013-01-21 00:00:00 Completed HPV 2013-01-21 00:00:00 Completed Meningococcal Polysaccharide (groups A, C, Y and W-135) conjugate vaccine (MCV4P) 2013-01-21 00:00:00 Completed TDAP 2013-01-21 00:00:00 Completed HPV 2013-01-21 00:00:00 Completed [facility] Meningococcal Polysaccharide (groups A, C, Y and W-135) conjugate vaccine (MCV4P) 2013-01-21 00:00:00 Completed [facility] TDAP 2013-01-21 00:00:00 Completed [facility] HPV 2013-01-21 00:00:00 Completed [facility] Meningococcal Polysaccharide (groups A, C, Y and W-135) conjugate vaccine (MCV4P) 2013-01-21 00:00:00 Completed [facility] TDAP 2013-01-21 00:00:00 Completed [facility] HPV 2013-01-21 00:00:00 Completed [facility] Meningococcal Polysaccharide (groups A, C, Y and W-135) conjugate vaccine (MCV4P) 2013-01-21 00:00:00 Completed [facility] TDAP 2013-01-21 00:00:00 Completed [facility] HEPATITIS A 2006-06-27 00:00:00 Completed [facility] HEPATITIS A 2006-06-27 00:00:00 Completed [facility] HEPATITIS A 2006-06-27 00:00:00 Completed [facility] HEPATITIS A 2006-06-27 00:00:00 Completed [facility] HEPATITIS A 2006-06-27 00:00:00 Completed [facility] HEPATITIS A 2006-06-27 00:00:00 Completed [facility] HEPATITIS A 2006-06-27 00:00:00 Completed [facility] HEPATITIS A 2006-06-27 00:00:00 Completed [facility] HEPATITIS A 2006-06-27 00:00:00 Completed [facility] HEPATITIS A 2006-06-27 00:00:00 Completed [facility] HEPATITIS A 2006-06-27 00:00:00 Completed [facility] HEPATITIS A 2006-06-27 00:00:00 Completed [facility] HEPATITIS A 2006-06-27 00:00:00 Completed [facility] HEPATITIS A 2006-06-27 00:00:00 Completed [facility] HEPATITIS A 2006-06-27 00:00:00 Completed [facility] HEPATITIS A 2006-06-27 00:00:00 Completed [facility] HEPATITIS A 2006-06-27 00:00:00 Completed [facility] HEPATITIS A 2006-06-27 00:00:00 Completed [facility] HEPATITIS A 2006-06-27 00:00:00 Completed [facility] HEPATITIS A 2006-06-27 00:00:00 Completed [facility] HEPATITIS A 2006-06-27 00:00:00 Completed HEPATITIS A 2006-06-27 00:00:00 Completed HEPATITIS A 2006-06-27 00:00:00 Completed [facility] HEPATITIS A 2006-06-27 00:00:00 Completed [facility] HEPATITIS A 2006-06-27 00:00:00 Completed [facility] HEPATITIS A 2006-06-27 00:00:00 Completed [facility] Hep B, Adol or Pedi Dosage 2005-11-15 00:00:00 Completed [facility] MMR 2005-11-15 00:00:00 Completed [facility] Polio (IPV/OPV) 2005-11-15 00:00:00 Completed [facility] Varicella (varivax)(chicken pox) 2005-11-15 00:00:00 Completed [facility] Pneumococcal 7 Conjugate, PCV7 (Prevnar7) 2005-11-15 00:00:00 Completed [facility] DTAP 2005-11-15 00:00:00 Completed [facility] HEPATITIS A 2005-11-15 00:00:00 Completed [facility] Hep B, Adol or Pedi Dosage 2005-11-15 00:00:00 Completed [facility] MMR 2005-11-15 00:00:00 Completed [facility] Polio (IPV/OPV) 2005-11-15 00:00:00 Completed [facility] Varicella (varivax)(chicken pox) 2005-11-15 00:00:00 Completed [facility] Pneumococcal 7 Conjugate, PCV7 (Prevnar7) 2005-11-15 00:00:00 Completed [facility] DTAP 2005-11-15 00:00:00 Completed [facility] HEPATITIS A 2005-11-15 00:00:00 Completed [facility] Hep B, Adol or Pedi Dosage 2005-11-15 00:00:00 Completed [facility] MMR 2005-11-15 00:00:00 Completed [facility] Polio (IPV/OPV) 2005-11-15 00:00:00 Completed [facility] Varicella (varivax)(chicken pox) 2005-11-15 00:00:00 Completed [facility] Pneumococcal 7 Conjugate, PCV7 (Prevnar7) 2005-11-15 00:00:00 Completed [facility] DTAP 2005-11-15 00:00:00 Completed [facility] HEPATITIS A 2005-11-15 00:00:00 Completed [facility] Hep B, Adol or Pedi Dosage 2005-11-15 00:00:00 Completed [facility] MMR 2005-11-15 00:00:00 Completed [facility] Polio (IPV/OPV) 2005-11-15 00:00:00 Completed [facility] Varicella (varivax)(chicken pox) 2005-11-15 00:00:00 Completed [facility] Pneumococcal 7 Conjugate, PCV7 (Prevnar7) 2005-11-15 00:00:00 Completed [facility] DTAP 2005-11-15 00:00:00 Completed [facility] HEPATITIS A 2005-11-15 00:00:00 Completed [facility] Hep B, Adol or Pedi Dosage 2005-11-15 00:00:00 Completed [facility] MMR 2005-11-15 00:00:00 Completed [facility] Polio (IPV/OPV) 2005-11-15 00:00:00 Completed [facility] Varicella (varivax)(chicken pox) 2005-11-15 00:00:00 Completed [facility] Pneumococcal 7 Conjugate, PCV7 (Prevnar7) 2005-11-15 00:00:00 Completed [facility] DTAP 2005-11-15 00:00:00 Completed [facility] HEPATITIS A 2005-11-15 00:00:00 Completed [facility] Hep B, Adol or Pedi Dosage 2005-11-15 00:00:00 Completed [facility] MMR 2005-11-15 00:00:00 Completed [facility] Polio (IPV/OPV) 2005-11-15 00:00:00 Completed [facility] Varicella (varivax)(chicken pox) 2005-11-15 00:00:00 Completed [facility] Pneumococcal 7 Conjugate, PCV7 (Prevnar7) 2005-11-15 00:00:00 Completed [facility] DTAP 2005-11-15 00:00:00 Completed [facility] HEPATITIS A 2005-11-15 00:00:00 Completed [facility] Hep B, Adol or Pedi Dosage 2005-11-15 00:00:00 Completed [facility] MMR 2005-11-15 00:00:00 Completed [facility] Polio (IPV/OPV) 2005-11-15 00:00:00 Completed [facility] Varicella (varivax)(chicken pox) 2005-11-15 00:00:00 Completed [facility] Pneumococcal 7 Conjugate, PCV7 (Prevnar7) 2005-11-15 00:00:00 Completed [facility] DTAP 2005-11-15 00:00:00 Completed [facility] HEPATITIS A 2005-11-15 00:00:00 Completed [facility] Hep B, Adol or Pedi Dosage 2005-11-15 00:00:00 Completed [facility] MMR 2005-11-15 00:00:00 Completed [facility] Polio (IPV/OPV) 2005-11-15 00:00:00 Completed [facility] Varicella (varivax)(chicken pox) 2005-11-15 00:00:00 Completed [facility] Pneumococcal 7 Conjugate, PCV7 (Prevnar7) 2005-11-15 00:00:00 Completed [facility] DTAP 2005-11-15 00:00:00 Completed [facility] HEPATITIS A 2005-11-15 00:00:00 Completed [facility] Hep B, Adol or Pedi Dosage 2005-11-15 00:00:00 Completed [facility] MMR 2005-11-15 00:00:00 Completed [facility] Polio (IPV/OPV) 2005-11-15 00:00:00 Completed [facility] Varicella (varivax)(chicken pox) 2005-11-15 00:00:00 Completed [facility] Pneumococcal 7 Conjugate, PCV7 (Prevnar7) 2005-11-15 00:00:00 Completed [facility] DTAP 2005-11-15 00:00:00 Completed [facility] HEPATITIS A 2005-11-15 00:00:00 Completed [facility] Hep B, Adol or Pedi Dosage 2005-11-15 00:00:00 Completed [facility] MMR 2005-11-15 00:00:00 Completed [facility] Polio (IPV/OPV) 2005-11-15 00:00:00 Completed [facility] Varicella (varivax)(chicken pox) 2005-11-15 00:00:00 Completed [facility] Pneumococcal 7 Conjugate, PCV7 (Prevnar7) 2005-11-15 00:00:00 Completed [facility] DTAP 2005-11-15 00:00:00 Completed [facility] HEPATITIS A 2005-11-15 00:00:00 Completed [facility] Hep B, Adol or Pedi Dosage 2005-11-15 00:00:00 Completed [facility] MMR 2005-11-15 00:00:00 Completed [facility] Polio (IPV/OPV) 2005-11-15 00:00:00 Completed [facility] Varicella (varivax)(chicken pox) 2005-11-15 00:00:00 Completed [facility] Pneumococcal 7 Conjugate, PCV7 (Prevnar7) 2005-11-15 00:00:00 Completed [facility] DTAP 2005-11-15 00:00:00 Completed [facility] HEPATITIS A 2005-11-15 00:00:00 Completed [facility] Hep B, Adol or Pedi Dosage 2005-11-15 00:00:00 Completed [facility] MMR 2005-11-15 00:00:00 Completed [facility] Polio (IPV/OPV) 2005-11-15 00:00:00 Completed [facility] Varicella (varivax)(chicken pox) 2005-11-15 00:00:00 Completed [facility] Pneumococcal 7 Conjugate, PCV7 (Prevnar7) 2005-11-15 00:00:00 Completed [facility] DTaP, Unspecified Formulation 2005-11-15 00:00:00 Completed [facility] IPV 2005-11-15 00:00:00 Completed [facility] DTAP 2005-11-15 00:00:00 Completed [facility] HEPATITIS A 2005-11-15 00:00:00 Completed [facility] Hep B, Adol or Pedi Dosage 2005-11-15 00:00:00 Completed [facility] MMR 2005-11-15 00:00:00 Completed [facility] Polio (IPV/OPV) 2005-11-15 00:00:00 Completed [facility] Varicella (varivax)(chicken pox) 2005-11-15 00:00:00 Completed [facility] Pneumococcal 7 Conjugate, PCV7 (Prevnar7) 2005-11-15 00:00:00 Completed [facility] DTaP, Unspecified Formulation 2005-11-15 00:00:00 Completed [facility] IPV 2005-11-15 00:00:00 Completed [facility] DTAP 2005-11-15 00:00:00 Completed [facility] HEPATITIS A 2005-11-15 00:00:00 Completed [facility] Hep B, Adol or Pedi Dosage 2005-11-15 00:00:00 Completed [facility] MMR 2005-11-15 00:00:00 Completed [facility] Polio (IPV/OPV) 2005-11-15 00:00:00 Completed [facility] Varicella (varivax)(chicken pox) 2005-11-15 00:00:00 Completed [facility] Pneumococcal 7 Conjugate, PCV7 (Prevnar7) 2005-11-15 00:00:00 Completed [facility] DTaP, Unspecified Formulation 2005-11-15 00:00:00 Completed [facility] IPV 2005-11-15 00:00:00 Completed [facility] DTAP 2005-11-15 00:00:00 Completed [facility] HEPATITIS A 2005-11-15 00:00:00 Completed [facility] Hep B, Adol or Pedi Dosage 2005-11-15 00:00:00 Completed [facility] MMR 2005-11-15 00:00:00 Completed [facility] Polio (IPV/OPV) 2005-11-15 00:00:00 Completed [facility] Varicella (varivax)(chicken pox) 2005-11-15 00:00:00 Completed [facility] Pneumococcal 7 Conjugate, PCV7 (Prevnar7) 2005-11-15 00:00:00 Completed [facility] DTaP, Unspecified Formulation 2005-11-15 00:00:00 Completed [facility] IPV 2005-11-15 00:00:00 Completed [facility] DTAP 2005-11-15 00:00:00 Completed [facility] HEPATITIS A 2005-11-15 00:00:00 Completed [facility] Hep B, Adol or Pedi Dosage 2005-11-15 00:00:00 Completed [facility] MMR 2005-11-15 00:00:00 Completed [facility] Polio (IPV/OPV) 2005-11-15 00:00:00 Completed [facility] Varicella (varivax)(chicken pox) 2005-11-15 00:00:00 Completed [facility] Pneumococcal 7 Conjugate, PCV7 (Prevnar7) 2005-11-15 00:00:00 Completed [facility] DTaP, Unspecified Formulation 2005-11-15 00:00:00 Completed [facility] IPV 2005-11-15 00:00:00 Completed [facility] DTAP 2005-11-15 00:00:00 Completed [facility] HEPATITIS A 2005-11-15 00:00:00 Completed [facility] Hep B, Adol or Pedi Dosage 2005-11-15 00:00:00 Completed [facility] MMR 2005-11-15 00:00:00 Completed [facility] Polio (IPV/OPV) 2005-11-15 00:00:00 Completed [facility] Varicella (varivax)(chicken pox) 2005-11-15 00:00:00 Completed [facility] Pneumococcal 7 Conjugate, PCV7 (Prevnar7) 2005-11-15 00:00:00 Completed [facility] DTaP, Unspecified Formulation 2005-11-15 00:00:00 Completed [facility] IPV 2005-11-15 00:00:00 Completed [facility] DTAP 2005-11-15 00:00:00 Completed [facility] HEPATITIS A 2005-11-15 00:00:00 Completed [facility] Hep B, Adol or Pedi Dosage 2005-11-15 00:00:00 Completed [facility] MMR 2005-11-15 00:00:00 Completed [facility] Polio (IPV/OPV) 2005-11-15 00:00:00 Completed [facility] Varicella (varivax)(chicken pox) 2005-11-15 00:00:00 Completed [facility] Pneumococcal 7 Conjugate, PCV7 (Prevnar7) 2005-11-15 00:00:00 Completed [facility] DTaP, Unspecified Formulation 2005-11-15 00:00:00 Completed [facility] IPV 2005-11-15 00:00:00 Completed [facility] DTAP 2005-11-15 00:00:00 Completed [facility] HEPATITIS A 2005-11-15 00:00:00 Completed [facility] Hep B, Adol or Pedi Dosage 2005-11-15 00:00:00 Completed [facility] MMR 2005-11-15 00:00:00 Completed [facility] Polio (IPV/OPV) 2005-11-15 00:00:00 Completed [facility] Varicella (varivax)(chicken pox) 2005-11-15 00:00:00 Completed [facility] Pneumococcal 7 Conjugate, PCV7 (Prevnar7) 2005-11-15 00:00:00 Completed [facility] DTaP, Unspecified Formulation 2005-11-15 00:00:00 Completed [facility] IPV 2005-11-15 00:00:00 Completed [facility] DTAP 2005-11-15 00:00:00 Completed [facility] HEPATITIS A 2005-11-15 00:00:00 Completed [facility] Hep B, Adol or Pedi Dosage 2005-11-15 00:00:00 Completed [facility] MMR 2005-11-15 00:00:00 Completed [facility] Polio (IPV/OPV) 2005-11-15 00:00:00 Completed [facility] Varicella (varivax)(chicken pox) 2005-11-15 00:00:00 Completed [facility] Pneumococcal 7 Conjugate, PCV7 (Prevnar7) 2005-11-15 00:00:00 Completed [facility] DTaP, Unspecified Formulation 2005-11-15 00:00:00 Completed [facility] IPV 2005-11-15 00:00:00 Completed [facility] DTAP 2005-11-15 00:00:00 Completed [facility] HEPATITIS A 2005-11-15 00:00:00 Completed [facility] Hep B, Adol or Pedi Dosage 2005-11-15 00:00:00 Completed [facility] MMR 2005-11-15 00:00:00 Completed [facility] Polio (IPV/OPV) 2005-11-15 00:00:00 Completed [facility] Varicella (varivax)(chicken pox) 2005-11-15 00:00:00 Completed [facility] Pneumococcal 7 Conjugate, PCV7 (Prevnar7) 2005-11-15 00:00:00 Completed [facility] DTaP, Unspecified Formulation 2005-11-15 00:00:00 Completed [facility] IPV 2005-11-15 00:00:00 Completed [facility] DTAP 2005-11-15 00:00:00 Completed HEPATITIS A 2005-11-15 [...] 2005-11-15 00:00:00 Completed DTAP 2005-11-15 00:00:00 Completed [facility] HEPATITIS A 2005-11-15 00:00:00 Completed [facility] Hep B, Adol or Pedi Dosage 2005-11-15 00:00:00 Completed [facility] MMR 2005-11-15 00:00:00 Completed [facility] Polio (IPV/OPV) 2005-11-15 00:00:00 Completed [facility] Varicella (varivax)(chicken pox) 2005-11-15 00:00:00 Completed [facility] Pneumococcal 7 Conjugate, PCV7 (Prevnar7) 2005-11-15 00:00:00 Completed [facility] DTAP 2005-11-15 00:00:00 Completed [facility] HEPATITIS A 2005-11-15 00:00:00 Completed [facility] Hep B, Adol or Pedi Dosage 2005-11-15 00:00:00 Completed [facility] MMR 2005-11-15 00:00:00 Completed [facility] Polio (IPV/OPV) 2005-11-15 00:00:00 Completed [facility] Varicella (varivax)(chicken pox) 2005-11-15 00:00:00 Completed [facility] Pneumococcal 7 Conjugate, PCV7 (Prevnar7) 2005-11-15 00:00:00 Completed [facility] DTAP 2005-11-15 00:00:00 Completed [facility] HEPATITIS A 2005-11-15 00:00:00 Completed [facility] Hep B, Adol or Pedi Dosage 2005-11-15 00:00:00 Completed [facility] MMR 2005-11-15 00:00:00 Completed [facility] Polio (IPV/OPV) 2005-11-15 00:00:00 Completed [facility] Varicella (varivax)(chicken pox) 2005-11-15 00:00:00 Completed [facility] Pneumococcal 7 Conjugate, PCV7 (Prevnar7) 2005-11-15 00:00:00 Completed [facility] DTAP 2005-11-15 00:00:00 Completed [facility] HEPATITIS A 2005-11-15 00:00:00 Completed [facility] Varicella (varivax)(chicken pox) 2001-11-18 00:00:00 Completed [facility] Varicella (varivax)(chicken pox) 2001-11-18 00:00:00 Completed [facility] Varicella (varivax)(chicken pox) 2001-11-18 00:00:00 Completed [facility] Varicella (varivax)(chicken pox) 2001-11-18 00:00:00 Completed [facility] Varicella (varivax)(chicken pox) 2001-11-18 00:00:00 Completed [facility] Varicella (varivax)(chicken pox) 2001-11-18 00:00:00 Completed [facility] Varicella (varivax)(chicken pox) 2001-11-18 00:00:00 Completed [facility] Varicella (varivax)(chicken pox) 2001-11-18 00:00:00 Completed [facility] Varicella (varivax)(chicken pox) 2001-11-18 00:00:00 Completed [facility] Varicella (varivax)(chicken pox) 2001-11-18 00:00:00 Completed [facility] Varicella (varivax)(chicken pox) 2001-11-18 00:00:00 Completed [facility] Varicella (varivax)(chicken pox) 2001-11-18 00:00:00 Completed [facility] DTaP, Unspecified Formulation 2001-11-18 00:00:00 Completed [facility] Varicella (varivax)(chicken pox) 2001-11-18 00:00:00 Completed [facility] DTaP, Unspecified Formulation 2001-11-18 00:00:00 Completed [facility] Varicella (varivax)(chicken pox) 2001-11-18 00:00:00 Completed [facility] DTaP, Unspecified Formulation 2001-11-18 00:00:00 Completed [facility] Varicella (varivax)(chicken pox) 2001-11-18 00:00:00 Completed [facility] DTaP, Unspecified Formulation 2001-11-18 00:00:00 Completed [facility] Varicella (varivax)(chicken pox) 2001-11-18 00:00:00 Completed [facility] DTaP, Unspecified Formulation 2001-11-18 00:00:00 Completed [facility] Varicella (varivax)(chicken pox) 2001-11-18 00:00:00 Completed [facility] DTaP, Unspecified Formulation 2001-11-18 00:00:00 Completed [facility] Varicella (varivax)(chicken pox) 2001-11-18 00:00:00 Completed [facility] DTaP, Unspecified Formulation 2001-11-18 00:00:00 Completed [facility] Varicella (varivax)(chicken pox) 2001-11-18 00:00:00 Completed [facility] DTaP, Unspecified Formulation 2001-11-18 00:00:00 Completed [facility] Varicella (varivax)(chicken pox) 2001-11-18 00:00:00 Completed [facility] DTaP, Unspecified Formulation 2001-11-18 00:00:00 Completed [facility] Varicella (varivax)(chicken pox) 2001-11-18 00:00:00 Completed [facility] DTaP, Unspecified Formulation 2001-11-18 00:00:00 Completed [facility] Varicella (varivax)(chicken pox) 2001-11-18 00:00:00 Completed DTaP, Unspecified Formulation 2001-11-18 00:00:00 Completed Varicella (varivax)(chicken pox) 2001-11-18 00:00:00 Completed DTaP, Unspecified Formulation 2001-11-18 00:00:00 Completed Varicella (varivax)(chicken pox) 2001-11-18 00:00:00 Completed [facility] Varicella (varivax)(chicken pox) 2001-11-18 00:00:00 Completed [facility] Varicella (varivax)(chicken pox) 2001-11-18 00:00:00 Completed [facility] Hep B, Adol or Pedi Dosage 2001 00:00:00 Completed [facility] MMR 2001 00:00:00 Completed [facility] Polio (IPV/OPV) 2001 00:00:00 Completed [facility] Pneumococcal 7 Conjugate, PCV7 (Prevnar7) 2001 00:00:00 Completed [facility] HIB 4 Dose Schedule 2001 00:00:00 Completed [facility] Hep B, Adol or Pedi Dosage 2001 00:00:00 Completed [facility] MMR 2001 00:00:00 Completed [facility] Polio (IPV/OPV) 2001 00:00:00 Completed [facility] Pneumococcal 7 Conjugate, PCV7 (Prevnar7) 2001 00:00:00 Completed [facility] HIB 4 Dose Schedule 2001 00:00:00 Completed [facility] Hep B, Adol or Pedi Dosage 2001 00:00:00 Completed [facility] MMR 2001 00:00:00 Completed [facility] Polio (IPV/OPV) 2001 00:00:00 Completed [facility] Pneumococcal 7 Conjugate, PCV7 (Prevnar7) 2001 00:00:00 Completed [facility] HIB 4 Dose Schedule 2001 00:00:00 Completed [facility] Hep B, Adol or Pedi Dosage 2001 00:00:00 Completed [facility] MMR 2001 00:00:00 Completed [facility] Polio (IPV/OPV) 2001 00:00:00 Completed [place] [facility] Pneumococcal 7 Conjugate, PCV7 (Prevnar7) 2001 00:00:00 Completed [facility] HIB 4 Dose Schedule 2001 00:00:00 Completed [facility] Hep B, Adol or Pedi Dosage 2001 00:00:00 Completed [facility] MMR 2001 00:00:00 Completed [facility] Polio (IPV/OPV) 2001 00:00:00 Completed [facility] Pneumococcal 7 Conjugate, PCV7 (Prevnar7) 2001 00:00:00 Completed [facility] HIB 4 Dose Schedule 2001 00:00:00 Completed [facility] Hep B, Adol or Pedi Dosage 2001 00:00:00 Completed [facility] MMR 2001 00:00:00 Completed [facility] Polio (IPV/OPV) 2001 00:00:00 Completed [facility] Pneumococcal 7 Conjugate, PCV7 (Prevnar7) 2001 00:00:00 Completed [facility] HIB 4 Dose Schedule 2001 00:00:00 Completed [facility] Hep B, Adol or Pedi Dosage 2001 00:00:00 Completed [facility] MMR 2001 00:00:00 Completed [facility] Polio (IPV/OPV) 2001 00:00:00 Completed [facility] Pneumococcal 7 Conjugate, PCV7 (Prevnar7) 2001 00:00:00 Completed [facility] HIB 4 Dose Schedule 2001 00:00:00 Completed [facility] Hep B, Adol or Pedi Dosage 2001 00:00:00 Completed [facility] MMR 2001 00:00:00 Completed [facility] Polio (IPV/OPV) 2001 00:00:00 Completed [facility] Pneumococcal 7 Conjugate, PCV7 (Prevnar7) 2001 00:00:00 Completed [facility] HIB 4 Dose Schedule 2001 00:00:00 Completed [facility] Hep B, Adol or Pedi Dosage 2001 00:00:00 Completed [facility] MMR 2001 00:00:00 Completed [facility] Polio (IPV/OPV) 2001 00:00:00 Completed [facility] Pneumococcal 7 Conjugate, PCV7 (Prevnar7) 2001 00:00:00 Completed [facility] HIB 4 Dose Schedule 2001 00:00:00 Completed [facility] Hep B, Adol or Pedi Dosage 2001 00:00:00 Completed [facility] MMR 2001 00:00:00 Completed [facility] Polio (IPV/OPV) 2001 00:00:00 Completed [facility] Pneumococcal 7 Conjugate, PCV7 (Prevnar7) 2001 00:00:00 Completed [facility] HIB 4 Dose Schedule 2001 00:00:00 Completed [facility] Hep B, Adol or Pedi Dosage 2001 00:00:00 Completed [facility] MMR 2001 00:00:00 Completed [facility] Polio (IPV/OPV) 2001 00:00:00 Completed [facility] Pneumococcal 7 Conjugate, PCV7 (Prevnar7) 2001 00:00:00 Completed [facility] HIB 4 Dose Schedule 2001 00:00:00 Completed [facility] Hep B, Adol or Pedi Dosage 2001 00:00:00 Completed [facility] MMR 2001 00:00:00 Completed [facility] Polio (IPV/OPV) 2001 00:00:00 Completed [facility] Pneumococcal 7 Conjugate, PCV7 (Prevnar7) 2001 00:00:00 Completed [facility] IPV 2001 00:00:00 Completed [facility] HIB 4 Dose Schedule 2001 00:00:00 Completed [facility] Hep B, Adol or Pedi Dosage 2001 00:00:00 Completed [facility] MMR 2001 00:00:00 Completed [facility] Polio (IPV/OPV) 2001 00:00:00 Completed [facility] Pneumococcal 7 Conjugate, PCV7 (Prevnar7) 2001 00:00:00 Completed [facility] IPV 2001 00:00:00 Completed [facility] HIB 4 Dose Schedule 2001 00:00:00 Completed [facility] Hep B, Adol or Pedi Dosage 2001 00:00:00 Completed [facility] MMR 2001 00:00:00 Completed [facility] Polio (IPV/OPV) 2001 00:00:00 Completed [facility] Pneumococcal 7 Conjugate, PCV7 (Prevnar7) 2001 00:00:00 Completed [facility] IPV 2001 00:00:00 Completed [facility] HIB 4 Dose Schedule 2001 00:00:00 Completed [facility] Hep B, Adol or Pedi Dosage 2001 00:00:00 Completed [facility] MMR 2001 00:00:00 Completed [facility] Polio (IPV/OPV) 2001 00:00:00 Completed [facility] Pneumococcal 7 Conjugate, PCV7 (Prevnar7) 2001 00:00:00 Completed [facility] IPV 2001 00:00:00 Completed [facility] HIB 4 Dose Schedule 2001 00:00:00 Completed [facility] Hep B, Adol or Pedi Dosage 2001 00:00:00 Completed [facility] MMR 2001 00:00:00 Completed [facility] Polio (IPV/OPV) 2001 00:00:00 Completed [facility] Pneumococcal 7 Conjugate, PCV7 (Prevnar7) 2001 00:00:00 Completed [facility] IPV 2001 00:00:00 Completed [facility] HIB 4 Dose Schedule 2001 00:00:00 Completed [facility] Hep B, Adol or Pedi Dosage 2001 00:00:00 Completed [facility] MMR 2001 00:00:00 Completed [facility] Polio (IPV/OPV) 2001 00:00:00 Completed [facility] Pneumococcal 7 Conjugate, PCV7 (Prevnar7) 2001 00:00:00 Completed [facility] IPV 2001 00:00:00 Completed [facility] HIB 4 Dose Schedule 2001 00:00:00 Completed [facility] Hep B, Adol or Pedi Dosage 2001 00:00:00 Completed [facility] MMR 2001 00:00:00 Completed [facility] Polio (IPV/OPV) 2001 00:00:00 Completed [facility] Pneumococcal 7 Conjugate, PCV7 (Prevnar7) 2001 00:00:00 Completed [facility] IPV 2001 00:00:00 Completed [facility] HIB 4 Dose Schedule 2001 00:00:00 Completed [facility] Hep B, Adol or Pedi Dosage 2001 00:00:00 Completed [facility] MMR 2001 00:00:00 Completed [facility] Polio (IPV/OPV) 2001 00:00:00 Completed [facility] Pneumococcal 7 Conjugate, PCV7 (Prevnar7) 2001 00:00:00 Completed [facility] IPV 2001 00:00:00 Completed [facility] HIB 4 Dose Schedule 2001 00:00:00 Completed [facility] Hep B, Adol or Pedi Dosage 2001 00:00:00 Completed [facility] MMR 2001 00:00:00 Completed [facility] Polio (IPV/OPV) 2001 00:00:00 Completed [facility] Pneumococcal 7 Conjugate, PCV7 (Prevnar7) 2001 00:00:00 Completed [facility] IPV 2001 00:00:00 Completed [facility] HIB 4 Dose Schedule 2001 00:00:00 Completed [facility] Hep B, Adol or Pedi Dosage 2001 00:00:00 Completed [facility] MMR 2001 00:00:00 Completed [facility] Polio (IPV/OPV) 2001 00:00:00 Completed [facility] Pneumococcal 7 Conjugate, PCV7 (Prevnar7) 2001 00:00:00 Completed [facility] IPV 2001 00:00:00 Completed [facility] HIB 4 Dose Schedule 2001 00:00:00 Completed [...] HIB 4 Dose Schedule 2001 00:00:00 Completed [facility] Hep B, Adol or Pedi Dosage 2001 00:00:00 Completed [facility] MMR 2001 00:00:00 Completed [facility] Polio (IPV/OPV) 2001 00:00:00 Completed [facility] Pneumococcal 7 Conjugate, PCV7 (Prevnar7) 2001 00:00:00 Completed [facility] HIB 4 Dose Schedule 2001 00:00:00 Completed [facility] Hep B, Adol or Pedi Dosage 2001 00:00:00 Completed [facility] MMR 2001 00:00:00 Completed [facility] Polio (IPV/OPV) 2001 00:00:00 Completed [facility] Pneumococcal 7 Conjugate, PCV7 (Prevnar7) 2001 00:00:00 Completed [facility] HIB 4 Dose Schedule 2001 00:00:00 Completed [facility] Hep B, Adol or Pedi Dosage 2001 00:00:00 Completed [facility] MMR 2001 00:00:00 Completed [facility] Polio (IPV/OPV) 2001 00:00:00 Completed [facility] Pneumococcal 7 Conjugate, PCV7 (Prevnar7) 2001 00:00:00 Completed [facility] HIB 4 Dose Schedule 2001 00:00:00 Completed [facility] Pneumococcal 7 Conjugate, PCV7 (Prevnar7) 2001-05-10 00:00:00 Completed [facility] DTAP 2001-05-10 00:00:00 Completed [facility] HIB 4 Dose Schedule 2001-05-10 00:00:00 Completed [facility] Pneumococcal 7 Conjugate, PCV7 (Prevnar7) 2001-05-10 00:00:00 Completed [facility] DTAP 2001-05-10 00:00:00 Completed [facility] HIB 4 Dose Schedule 2001-05-10 00:00:00 Completed [facility] Pneumococcal 7 Conjugate, PCV7 (Prevnar7) 2001-05-10 00:00:00 Completed [facility] DTAP 2001-05-10 00:00:00 Completed [facility] HIB 4 Dose Schedule 2001-05-10 00:00:00 Completed [facility] Pneumococcal 7 Conjugate, PCV7 (Prevnar7) 2001-05-10 00:00:00 Completed [facility] DTAP 2001-05-10 00:00:00 Completed [facility] HIB 4 Dose Schedule 2001-05-10 00:00:00 Completed [facility] Pneumococcal 7 Conjugate, PCV7 (Prevnar7) 2001-05-10 00:00:00 Completed [facility] DTAP 2001-05-10 00:00:00 Completed [facility] HIB 4 Dose Schedule 2001-05-10 00:00:00 Completed [facility] Pneumococcal 7 Conjugate, PCV7 (Prevnar7) 2001-05-10 00:00:00 Completed [facility] DTAP 2001-05-10 00:00:00 Completed [facility] HIB 4 Dose Schedule 2001-05-10 00:00:00 Completed [facility] Pneumococcal 7 Conjugate, PCV7 (Prevnar7) 2001-05-10 00:00:00 Completed [facility] DTAP 2001-05-10 00:00:00 Completed [facility] HIB 4 Dose Schedule 2001-05-10 00:00:00 Completed [facility] Pneumococcal 7 Conjugate, PCV7 (Prevnar7) 2001-05-10 00:00:00 Completed [facility] DTAP 2001-05-10 00:00:00 Completed [facility] HIB 4 Dose Schedule 2001-05-10 00:00:00 Completed [facility] Pneumococcal 7 Conjugate, PCV7 (Prevnar7) 2001-05-10 00:00:00 Completed [facility] DTAP 2001-05-10 00:00:00 Completed [facility] HIB 4 Dose Schedule 2001-05-10 00:00:00 Completed [facility] Pneumococcal 7 Conjugate, PCV7 (Prevnar7) 2001-05-10 00:00:00 Completed [facility] DTAP 2001-05-10 00:00:00 Completed [facility] HIB 4 Dose Schedule 2001-05-10 00:00:00 Completed [facility] Pneumococcal 7 Conjugate, PCV7 (Prevnar7) 2001-05-10 00:00:00 Completed [facility] DTAP 2001-05-10 00:00:00 Completed [facility] HIB 4 Dose Schedule 2001-05-10 00:00:00 Completed [facility] Pneumococcal 7 Conjugate, PCV7 (Prevnar7) 2001-05-10 00:00:00 Completed [facility] DTaP, Unspecified Formulation 2001-05-10 00:00:00 Completed [facility] Hib-HbOC 2001-05-10 00:00:00 Completed [facility] DTAP 2001-05-10 00:00:00 Completed [facility] HIB 4 Dose Schedule 2001-05-10 00:00:00 Completed [facility] Pneumococcal 7 Conjugate, PCV7 (Prevnar7) 2001-05-10 00:00:00 Completed [facility] DTaP, Unspecified Formulation 2001-05-10 00:00:00 Completed [facility] Hib-HbOC 2001-05-10 00:00:00 Completed [facility] DTAP 2001-05-10 00:00:00 Completed [facility] HIB 4 Dose Schedule 2001-05-10 00:00:00 Completed [facility] Pneumococcal 7 Conjugate, PCV7 (Prevnar7) 2001-05-10 00:00:00 Completed [facility] DTaP, Unspecified Formulation 2001-05-10 00:00:00 Completed [facility] Hib-HbOC 2001-05-10 00:00:00 Completed [facility] DTAP 2001-05-10 00:00:00 Completed [facility] HIB 4 Dose Schedule 2001-05-10 00:00:00 Completed [facility] Pneumococcal 7 Conjugate, PCV7 (Prevnar7) 2001-05-10 00:00:00 Completed [facility] DTaP, Unspecified Formulation 2001-05-10 00:00:00 Completed [facility] Hib-HbOC 2001-05-10 00:00:00 Completed [facility] DTAP 2001-05-10 00:00:00 Completed [facility] HIB 4 Dose Schedule 2001-05-10 00:00:00 Completed [facility] Pneumococcal 7 Conjugate, PCV7 (Prevnar7) 2001-05-10 00:00:00 Completed [facility] DTaP, Unspecified Formulation 2001-05-10 00:00:00 Completed [facility] Hib-HbOC 2001-05-10 00:00:00 Completed [facility] DTAP 2001-05-10 00:00:00 Completed [facility] HIB 4 Dose Schedule 2001-05-10 00:00:00 Completed [facility] Pneumococcal 7 Conjugate, PCV7 (Prevnar7) 2001-05-10 00:00:00 Completed [facility] DTaP, Unspecified Formulation 2001-05-10 00:00:00 Completed [facility] Hib-HbOC 2001-05-10 00:00:00 Completed [facility] DTAP 2001-05-10 00:00:00 Completed [facility] HIB 4 Dose Schedule 2001-05-10 00:00:00 Completed [facility] Pneumococcal 7 Conjugate, PCV7 (Prevnar7) 2001-05-10 00:00:00 Completed [facility] DTaP, Unspecified Formulation 2001-05-10 00:00:00 Completed [facility] Hib-HbOC 2001-05-10 00:00:00 Completed [facility] DTAP 2001-05-10 00:00:00 Completed [facility] HIB 4 Dose Schedule 2001-05-10 00:00:00 Completed [facility] Pneumococcal 7 Conjugate, PCV7 (Prevnar7) 2001-05-10 00:00:00 Completed [facility] DTaP, Unspecified Formulation 2001-05-10 00:00:00 Completed [facility] Hib-HbOC 2001-05-10 00:00:00 Completed [facility] DTAP 2001-05-10 00:00:00 Completed [facility] HIB 4 Dose Schedule 2001-05-10 00:00:00 Completed [facility] Pneumococcal 7 Conjugate, PCV7 (Prevnar7) 2001-05-10 00:00:00 Completed [facility] DTaP, Unspecified Formulation 2001-05-10 00:00:00 Completed [facility] Hib-HbOC 2001-05-10 00:00:00 Completed [facility] DTAP 2001-05-10 00:00:00 Completed [facility] HIB 4 Dose Schedule 2001-05-10 00:00:00 Completed [facility] Pneumococcal 7 Conjugate, PCV7 (Prevnar7) 2001-05-10 00:00:00 Completed [facility] DTaP, Unspecified Formulation 2001-05-10 00:00:00 Completed [facility] Hib-HbOC 2001-05-10 00:00:00 Completed [facility] DTAP 2001-05-10 00:00:00 Completed HIB 4 Dose Schedule 2001-05-10 00:00:00 Completed Pneumococcal 7 Conjugate, PCV7 (Prevnar7) 2001-05-10 00:00:00 Completed DTaP, Unspecified Formulation 2001-05-10 00:00:00 Completed Hib-HbOC 2001-05-10 00:00:00 Completed DTAP 2001-05-10 00:00:00 Completed HIB 4 Dose Schedule 2001-05-10 00:00:00 Completed Pneumococcal 7 Conjugate, PCV7 (Prevnar7) 2001-05-10 00:00:00 Completed DTaP, Unspecified Formulation 2001-05-10 00:00:00 Completed Hib-HbOC 2001-05-10 00:00:00 Completed DTAP 2001-05-10 00:00:00 Completed [facility] HIB 4 Dose Schedule 2001-05-10 00:00:00 Completed [facility] Pneumococcal 7 Conjugate, PCV7 (Prevnar7) 2001-05-10 00:00:00 Completed [facility] DTAP 2001-05-10 00:00:00 Completed [facility] HIB 4 Dose Schedule 2001-05-10 00:00:00 Completed [facility] Pneumococcal 7 Conjugate, PCV7 (Prevnar7) 2001-05-10 00:00:00 Completed [facility] DTAP 2001-05-10 00:00:00 Completed [facility] HIB 4 Dose Schedule 2001-05-10 00:00:00 Completed [facility] Pneumococcal 7 Conjugate, PCV7 (Prevnar7) 2001-05-10 00:00:00 Completed [facility] DTAP 2001-05-10 00:00:00 Completed [facility] HIB 4 Dose Schedule 2001-05-10 00:00:00 Completed [facility] Hep B, Adol or Pedi Dosage 2001-03-06 00:00:00 Completed [facility] Polio (IPV/OPV) 2001-03-06 00:00:00 Completed [facility] Pneumococcal 7 Conjugate, PCV7 (Prevnar7) 2001-03-06 00:00:00 Completed [facility] DTAP 2001-03-06 00:00:00 Completed [facility] HIB 4 Dose Schedule 2001-03-06 00:00:00 Completed [facility] Hep B, Adol or Pedi Dosage 2001-03-06 00:00:00 Completed [facility] Polio (IPV/OPV) 2001-03-06 00:00:00 Completed [facility] Pneumococcal 7 Conjugate, PCV7 (Prevnar7) 2001-03-06 00:00:00 Completed [facility] DTAP 2001-03-06 00:00:00 Completed [facility] HIB 4 Dose Schedule 2001-03-06 00:00:00 Completed [facility] Hep B, Adol or Pedi Dosage 2001-03-06 00:00:00 Completed [facility] Polio (IPV/OPV) 2001-03-06 00:00:00 Completed [facility] Pneumococcal 7 Conjugate, PCV7 (Prevnar7) 2001-03-06 00:00:00 Completed [facility] DTAP 2001-03-06 00:00:00 Completed [facility] HIB 4 Dose Schedule 2001-03-06 00:00:00 Completed [facility] Hep B, Adol or Pedi Dosage 2001-03-06 00:00:00 Completed [facility] Polio (IPV/OPV) 2001-03-06 00:00:00 Completed [facility] Pneumococcal 7 Conjugate, PCV7 (Prevnar7) 2001-03-06 00:00:00 Completed [facility] DTAP 2001-03-06 00:00:00 Completed [facility] HIB 4 Dose Schedule 2001-03-06 00:00:00 Completed [facility] Hep B, Adol or Pedi Dosage 2001-03-06 00:00:00 Completed [facility] Polio (IPV/OPV) 2001-03-06 00:00:00 Completed [facility] Pneumococcal 7 Conjugate, PCV7 (Prevnar7) 2001-03-06 00:00:00 Completed [facility] DTAP 2001-03-06 00:00:00 Completed [facility] HIB 4 Dose Schedule 2001-03-06 00:00:00 Completed [facility] Hep B, Adol or Pedi Dosage 2001-03-06 00:00:00 Completed [facility] Polio (IPV/OPV) 2001-03-06 00:00:00 Completed [facility] Pneumococcal 7 Conjugate, PCV7 (Prevnar7) 2001-03-06 00:00:00 Completed [facility] DTAP 2001-03-06 00:00:00 Completed [facility] HIB 4 Dose Schedule 2001-03-06 00:00:00 Completed [facility] Hep B, Adol or Pedi Dosage 2001-03-06 00:00:00 Completed [facility] Polio (IPV/OPV) 2001-03-06 00:00:00 Completed [facility] Pneumococcal 7 Conjugate, PCV7 (Prevnar7) 2001-03-06 00:00:00 Completed [facility] DTAP 2001-03-06 00:00:00 Completed [facility] HIB 4 Dose Schedule 2001-03-06 00:00:00 Completed [facility] Hep B, Adol or Pedi Dosage 2001-03-06 00:00:00 Completed [facility] Polio (IPV/OPV) 2001-03-06 00:00:00 Completed [facility] Pneumococcal 7 Conjugate, PCV7 (Prevnar7) 2001-03-06 00:00:00 Completed [facility] DTAP 2001-03-06 00:00:00 Completed [facility] HIB 4 Dose Schedule 2001-03-06 00:00:00 Completed [facility] Hep B, Adol or Pedi Dosage 2001-03-06 00:00:00 Completed [facility] Polio (IPV/OPV) 2001-03-06 00:00:00 Completed [facility] Pneumococcal 7 Conjugate, PCV7 (Prevnar7) 2001-03-06 00:00:00 Completed [facility] DTAP 2001-03-06 00:00:00 Completed [facility] HIB 4 Dose Schedule 2001-03-06 00:00:00 Completed [facility] Hep B, Adol or Pedi Dosage 2001-03-06 00:00:00 Completed [facility] Polio (IPV/OPV) 2001-03-06 00:00:00 Completed [facility] Pneumococcal 7 Conjugate, PCV7 (Prevnar7) 2001-03-06 00:00:00 Completed [facility] DTAP 2001-03-06 00:00:00 Completed [facility] HIB 4 Dose Schedule 2001-03-06 00:00:00 Completed [facility] Hep B, Adol or Pedi Dosage 2001-03-06 00:00:00 Completed [facility] Polio (IPV/OPV) 2001-03-06 00:00:00 Completed [facility] Pneumococcal 7 Conjugate, PCV7 (Prevnar7) 2001-03-06 00:00:00 Completed [facility] DTAP 2001-03-06 00:00:00 Completed [facility] HIB 4 Dose Schedule 2001-03-06 00:00:00 Completed [facility] Hep B, Adol or Pedi Dosage 2001-03-06 00:00:00 Completed [facility] Polio (IPV/OPV) 2001-03-06 00:00:00 Completed [facility] Pneumococcal 7 Conjugate, PCV7 (Prevnar7) 2001-03-06 00:00:00 Completed [facility] DTaP, Unspecified Formulation 2001-03-06 00:00:00 Completed [facility] IPV 2001-03-06 00:00:00 Completed [facility] DTAP 2001-03-06 00:00:00 Completed [facility] HIB 4 Dose Schedule 2001-03-06 00:00:00 Completed [facility] Hep B, Adol or Pedi Dosage 2001-03-06 00:00:00 Completed [facility] Polio (IPV/OPV) 2001-03-06 00:00:00 Completed [facility] Pneumococcal 7 Conjugate, PCV7 (Prevnar7) 2001-03-06 00:00:00 Completed [facility] DTaP, Unspecified Formulation 2001-03-06 00:00:00 Completed [facility] IPV 2001-03-06 00:00:00 Completed [facility] DTAP 2001-03-06 00:00:00 Completed [facility] HIB 4 Dose Schedule 2001-03-06 00:00:00 Completed [facility] Hep B, Adol or Pedi Dosage 2001-03-06 00:00:00 Completed [facility] Polio (IPV/OPV) 2001-03-06 00:00:00 Completed [facility] Pneumococcal 7 Conjugate, PCV7 (Prevnar7) 2001-03-06 00:00:00 Completed [facility] DTaP, Unspecified Formulation 2001-03-06 00:00:00 Completed [facility] IPV 2001-03-06 00:00:00 Completed [facility] DTAP 2001-03-06 00:00:00 Completed [facility] HIB 4 Dose Schedule 2001-03-06 00:00:00 Completed [facility] Hep B, Adol or Pedi Dosage 2001-03-06 00:00:00 Completed [facility] Polio (IPV/OPV) 2001-03-06 00:00:00 Completed [facility] Pneumococcal 7 Conjugate, PCV7 (Prevnar7) 2001-03-06 00:00:00 Completed [facility] DTaP, Unspecified Formulation 2001-03-06 00:00:00 Completed [facility] IPV 2001-03-06 00:00:00 Completed [facility] DTAP 2001-03-06 00:00:00 Completed [facility] HIB 4 Dose Schedule 2001-03-06 00:00:00 Completed [facility] Hep B, Adol or Pedi Dosage 2001-03-06 00:00:00 Completed [facility] Polio (IPV/OPV) 2001-03-06 00:00:00 Completed [facility] Pneumococcal 7 Conjugate, PCV7 (Prevnar7) 2001-03-06 00:00:00 Completed [facility] DTaP, Unspecified Formulation 2001-03-06 00:00:00 Completed [facility] IPV 2001-03-06 00:00:00 Completed [facility] DTAP 2001-03-06 00:00:00 Completed [facility] HIB 4 Dose Schedule 2001-03-06 00:00:00 Completed [facility] Hep B, Adol or Pedi Dosage 2001-03-06 00:00:00 Completed [facility] Polio (IPV/OPV) 2001-03-06 00:00:00 Completed [facility] Pneumococcal 7 Conjugate, PCV7 (Prevnar7) 2001-03-06 00:00:00 Completed [facility] DTaP, Unspecified Formulation 2001-03-06 00:00:00 Completed [facility] IPV 2001-03-06 00:00:00 Completed [facility] DTAP 2001-03-06 00:00:00 Completed [facility] HIB 4 Dose Schedule 2001-03-06 00:00:00 Completed [facility] Hep B, Adol or Pedi Dosage 2001-03-06 00:00:00 Completed [facility] Polio (IPV/OPV) 2001-03-06 00:00:00 Completed [facility] Pneumococcal 7 Conjugate, PCV7 (Prevnar7) 2001-03-06 00:00:00 Completed [facility] DTaP, Unspecified Formulation 2001-03-06 00:00:00 Completed [facility] IPV 2001-03-06 00:00:00 Completed [facility] DTAP 2001-03-06 00:00:00 Completed [facility] HIB 4 Dose Schedule 2001-03-06 00:00:00 Completed [facility] Hep B, Adol or Pedi Dosage 2001-03-06 00:00:00 Completed [facility] Polio (IPV/OPV) 2001-03-06 00:00:00 Completed [facility] Pneumococcal 7 Conjugate, PCV7 (Prevnar7) 2001-03-06 00:00:00 Completed [facility] DTaP, Unspecified Formulation 2001-03-06 00:00:00 Completed [facility] IPV 2001-03-06 00:00:00 Completed [facility] DTAP 2001-03-06 00:00:00 Completed [facility] HIB 4 Dose Schedule 2001-03-06 00:00:00 Completed [facility] Hep B, Adol or Pedi Dosage 2001-03-06 00:00:00 Completed [facility] Polio (IPV/OPV) 2001-03-06 00:00:00 Completed [facility] Pneumococcal 7 Conjugate, PCV7 (Prevnar7) 2001-03-06 00:00:00 Completed [facility] DTaP, Unspecified Formulation 2001-03-06 00:00:00 Completed [facility] IPV 2001-03-06 00:00:00 Completed [facility] DTAP 2001-03-06 00:00:00 Completed [facility] HIB 4 Dose Schedule 2001-03-06 00:00:00 Completed [facility] Hep B, Adol or Pedi Dosage 2001-03-06 00:00:00 Completed [facility] Polio (IPV/OPV) 2001-03-06 00:00:00 Completed [facility] Pneumococcal 7 Conjugate, PCV7 (Prevnar7) 2001-03-06 00:00:00 Completed [facility] DTaP, Unspecified Formulation 2001-03-06 00:00:00 Completed [facility] IPV 2001-03-06 00:00:00 Completed [facility] DTAP 2001-03-06 00:00:00 Completed HIB 4 Dose [...] 2001-03-06 00:00:00 Completed DTAP 2001-03-06 00:00:00 Completed [facility] HIB 4 Dose Schedule 2001-03-06 00:00:00 Completed [facility] Hep B, Adol or Pedi Dosage 2001-03-06 00:00:00 Completed [facility] Polio (IPV/OPV) 2001-03-06 00:00:00 Completed [facility] Pneumococcal 7 Conjugate, PCV7 (Prevnar7) 2001-03-06 00:00:00 Completed [facility] DTAP 2001-03-06 00:00:00 Completed [facility] HIB 4 Dose Schedule 2001-03-06 00:00:00 Completed [facility] Hep B, Adol or Pedi Dosage 2001-03-06 00:00:00 Completed [facility] Polio (IPV/OPV) 2001-03-06 00:00:00 Completed [facility] Pneumococcal 7 Conjugate, PCV7 (Prevnar7) 2001-03-06 00:00:00 Completed [facility] DTAP 2001-03-06 00:00:00 Completed [facility] HIB 4 Dose Schedule 2001-03-06 00:00:00 Completed [facility] Hep B, Adol or Pedi Dosage 2001-03-06 00:00:00 Completed [facility] Polio (IPV/OPV) 2001-03-06 00:00:00 Completed [facility] Pneumococcal 7 Conjugate, PCV7 (Prevnar7) 2001-03-06 00:00:00 Completed [facility] DTAP 2001-03-06 00:00:00 Completed [facility] HIB 4 Dose Schedule 2001-03-06 00:00:00 Completed [facility] Polio (IPV/OPV) 2000 00:00:00 Completed [facility] Pneumococcal 7 Conjugate, PCV7 (Prevnar7) 2000 00:00:00 Completed [facility] DTAP 2000 00:00:00 Completed [facility] HIB 4 Dose Schedule 2000 00:00:00 Completed [facility] Polio (IPV/OPV) 2000 00:00:00 Completed [facility] Pneumococcal 7 Conjugate, PCV7 (Prevnar7) 2000 00:00:00 Completed [facility] DTAP 2000 00:00:00 Completed [facility] HIB 4 Dose Schedule 2000 00:00:00 Completed [facility] Polio (IPV/OPV) 2000 00:00:00 Completed [facility] Pneumococcal 7 Conjugate, PCV7 (Prevnar7) 2000 00:00:00 Completed [facility] DTAP 2000 00:00:00 Completed [facility] HIB 4 Dose Schedule 2000 00:00:00 Completed [facility] Polio (IPV/OPV) 2000 00:00:00 Completed [facility] Pneumococcal 7 Conjugate, PCV7 (Prevnar7) 2000 00:00:00 Completed [facility] DTAP 2000 00:00:00 Completed [facility] HIB 4 Dose Schedule 2000 00:00:00 Completed [facility] Polio (IPV/OPV) 2000 00:00:00 Completed [facility] Pneumococcal 7 Conjugate, PCV7 (Prevnar7) 2000 00:00:00 Completed [facility] DTAP 2000 00:00:00 Completed [facility] HIB 4 Dose Schedule 2000 00:00:00 Completed [facility] Polio (IPV/OPV) 2000 00:00:00 Completed [facility] Pneumococcal 7 Conjugate, PCV7 (Prevnar7) 2000 00:00:00 Completed [facility] DTAP 2000 00:00:00 Completed [facility] HIB 4 Dose Schedule 2000 00:00:00 Completed [facility] Polio (IPV/OPV) 2000 00:00:00 Completed [facility] Pneumococcal 7 Conjugate, PCV7 (Prevnar7) 2000 00:00:00 Completed [facility] DTAP 2000 00:00:00 Completed [facility] HIB 4 Dose Schedule 2000 00:00:00 Completed [facility] Polio (IPV/OPV) 2000 00:00:00 Completed [facility] Pneumococcal 7 Conjugate, PCV7 (Prevnar7) 2000 00:00:00 Completed [facility] DTAP 2000 00:00:00 Completed [facility] HIB 4 Dose Schedule 2000 00:00:00 Completed [facility] Polio (IPV/OPV) 2000 00:00:00 Completed [facility] Pneumococcal 7 Conjugate, PCV7 (Prevnar7) 2000 00:00:00 Completed [facility] DTAP 2000 00:00:00 Completed [facility] HIB 4 Dose Schedule 2000 00:00:00 Completed [facility] Polio (IPV/OPV) 2000 00:00:00 Completed [facility] Pneumococcal 7 Conjugate, PCV7 (Prevnar7) 2000 00:00:00 Completed [facility] DTAP 2000 00:00:00 Completed [facility] HIB 4 Dose Schedule 2000 00:00:00 Completed [facility] Polio (IPV/OPV) 2000 00:00:00 Completed [facility] Pneumococcal 7 Conjugate, PCV7 (Prevnar7) 2000 00:00:00 Completed [facility] DTAP 2000 00:00:00 Completed [facility] HIB 4 Dose Schedule 2000 00:00:00 Completed [facility] Polio (IPV/OPV) 2000 00:00:00 Completed [facility] Pneumococcal 7 Conjugate, PCV7 (Prevnar7) 2000 00:00:00 Completed [facility] DTaP, Unspecified Formulation 2000 00:00:00 Completed [facility] IPV 2000 00:00:00 Completed [facility] DTAP 2000 00:00:00 Completed [facility] HIB 4 Dose Schedule 2000 00:00:00 Completed [facility] Polio (IPV/OPV) 2000 00:00:00 Completed [facility] Pneumococcal 7 Conjugate, PCV7 (Prevnar7) 2000 00:00:00 Completed [facility] DTaP, Unspecified Formulation 2000 00:00:00 Completed [facility] IPV 2000 00:00:00 Completed [facility] DTAP 2000 00:00:00 Completed [facility] HIB 4 Dose Schedule 2000 00:00:00 Completed [facility] Polio (IPV/OPV) 2000 00:00:00 Completed [facility] Pneumococcal 7 Conjugate, PCV7 (Prevnar7) 2000 00:00:00 Completed [facility] DTaP, Unspecified Formulation 2000 00:00:00 Completed [facility] IPV 2000 00:00:00 Completed [facility] DTAP 2000 00:00:00 Completed [facility] HIB 4 Dose Schedule 2000 00:00:00 Completed [facility] Polio (IPV/OPV) 2000 00:00:00 Completed [facility] Pneumococcal 7 Conjugate, PCV7 (Prevnar7) 2000 00:00:00 Completed [facility] DTaP, Unspecified Formulation 2000 00:00:00 Completed [facility] IPV 2000 00:00:00 Completed [facility] DTAP 2000 00:00:00 Completed [facility] HIB 4 Dose Schedule 2000 00:00:00 Completed [facility] Polio (IPV/OPV) 2000 00:00:00 Completed [facility] Pneumococcal 7 Conjugate, PCV7 (Prevnar7) 2000 00:00:00 Completed [facility] DTaP, Unspecified Formulation 2000 00:00:00 Completed [facility] IPV 2000 00:00:00 Completed [facility] DTAP 2000 00:00:00 Completed [facility] HIB 4 Dose Schedule 2000 00:00:00 Completed [facility] Polio (IPV/OPV) 2000 00:00:00 Completed [facility] Pneumococcal 7 Conjugate, PCV7 (Prevnar7) 2000 00:00:00 Completed [facility] DTaP, Unspecified Formulation 2000 00:00:00 Completed [facility] IPV 2000 00:00:00 Completed [facility] DTAP 2000 00:00:00 Completed [facility] HIB 4 Dose Schedule 2000 00:00:00 Completed [facility] Polio (IPV/OPV) 2000 00:00:00 Completed [facility] Pneumococcal 7 Conjugate, PCV7 (Prevnar7) 2000 00:00:00 Completed [facility] DTaP, Unspecified Formulation 2000 00:00:00 Completed [facility] IPV 2000 00:00:00 Completed [facility] DTAP 2000 00:00:00 Completed [facility] HIB 4 Dose Schedule 2000 00:00:00 Completed [facility] Polio (IPV/OPV) 2000 00:00:00 Completed [facility] Pneumococcal 7 Conjugate, PCV7 (Prevnar7) 2000 00:00:00 Completed [facility] DTaP, Unspecified Formulation 2000 00:00:00 Completed [facility] IPV 2000 00:00:00 Completed [facility] DTAP 2000 00:00:00 Completed [facility] HIB 4 Dose Schedule 2000 00:00:00 Completed [facility] Polio (IPV/OPV) 2000 00:00:00 Completed [facility] Pneumococcal 7 Conjugate, PCV7 (Prevnar7) 2000 00:00:00 Completed [facility] DTaP, Unspecified Formulation 2000 00:00:00 Completed [facility] IPV 2000 00:00:00 Completed [facility] DTAP 2000 00:00:00 Completed [facility] HIB 4 Dose Schedule 2000 00:00:00 Completed [facility] Polio (IPV/OPV) 2000 00:00:00 Completed [facility] Pneumococcal 7 Conjugate, PCV7 (Prevnar7) 2000 00:00:00 Completed [facility] DTaP, Unspecified Formulation 2000 00:00:00 Completed [facility] IPV 2000 00:00:00 Completed [facility] DTAP 2000 00:00:00 Completed [facility] HIB 4 Dose Schedule 2000 00:00:00 Completed Polio (IPV/OPV) 2000 00:00:00 Completed Pneumococcal 7 Conjugate, PCV7 (Prevnar7) 2000 00:00:00 Completed DTaP, Unspecified Formulation 2000 00:00:00 Completed IPV 2000 00:00:00 Completed DTAP 2000 00:00:00 Completed [facility] HIB 4 Dose Schedule 2000 00:00:00 Completed Polio (IPV/OPV) 2000 00:00:00 Completed Pneumococcal 7 Conjugate, PCV7 (Prevnar7) 2000 00:00:00 Completed DTaP, Unspecified Formulation 2000 00:00:00 Completed IPV 2000 00:00:00 Completed DTAP 2000 00:00:00 Completed [facility] HIB 4 Dose Schedule 2000 00:00:00 Completed [facility] Polio (IPV/OPV) 2000 00:00:00 Completed [facility] Pneumococcal 7 Conjugate, PCV7 (Prevnar7) 2000 00:00:00 Completed [facility] DTAP 2000 00:00:00 Completed [facility] HIB 4 Dose Schedule 2000 00:00:00 Completed [facility] Polio (IPV/OPV) 2000 00:00:00 Completed [facility] Pneumococcal 7 Conjugate, PCV7 (Prevnar7) 2000 00:00:00 Completed [facility] DTAP 2000 00:00:00 Completed [facility] HIB 4 Dose Schedule 2000 00:00:00 Completed [facility] Polio (IPV/OPV) 2000 00:00:00 Completed [facility] Pneumococcal 7 Conjugate, PCV7 (Prevnar7) 2000 00:00:00 Completed [facility] DTAP 2000 00:00:00 Completed [facility] HIB 4 Dose Schedule 2000 00:00:00 Completed [facility] DTAP 2000 00:00:00 Completed [facility] DTAP 2000 00:00:00 Completed [facility] DTAP 2000 00:00:00 Completed [facility] DTAP 2000 00:00:00 Completed [facility] DTAP 2000 00:00:00 Completed [facility] DTAP 2000 00:00:00 Completed [facility] DTAP 2000 00:00:00 Completed [facility] DTAP 2000 00:00:00 Completed [facility] DTAP 2000 00:00:00 Completed [facility] DTAP 2000 00:00:00 Completed [facility] DTAP 2000 00:00:00 Completed [facility] DTAP 2000 00:00:00 Completed [facility] DTAP 2000 00:00:00 Completed [facility] DTAP 2000 00:00:00 Completed [facility] DTAP 2000 00:00:00 Completed [facility] DTAP 2000 00:00:00 Completed [facility] DTAP 2000 00:00:00 Completed [facility] DTAP 2000 00:00:00 Completed [facility] DTAP 2000 00:00:00 Completed [facility] DTAP 2000 00:00:00 Completed [facility] DTAP 2000 00:00:00 Completed DTAP 2000 00:00:00 Completed DTAP 2000 00:00:00 Completed [facility] DTAP 2000 00:00:00 Completed [facility] DTAP 2000 00:00:00 Completed [facility] DTAP 2000 00:00:00 Completed [facility] Hep B, Adol or Pedi Dosage 2000 00:00:00 Completed [facility] Hep B, Adol or Pedi Dosage 2000 00:00:00 [facility] [place] Hep B, Adol or Pedi Dosage 2000 00:00:00 Completed [facility] [place] Hep B, Adol or Pedi Dosage 2000 00:00:00 Completed [facility] [place] Hep B, Adol or Pedi Dosage 2000 00:00:00 Completed [facility] [place] Hep B, Adol or Pedi Dosage 2000 00:00:00 Completed [facility] [place] Hep B, Adol or Pedi Dosage 2000 00:00:00 Completed [facility] [place] Hep B, Adol or Pedi Dosage 2000 00:00:00 Completed [facility] [place] Hep B, Adol or Pedi Dosage 2000 00:00:00 Completed [facility] [place] Hep B, Adol or Pedi Dosage 2000 00:00:00 Completed [facility] [place] Hep B, Adol or Pedi Dosage 2000 00:00:00 Completed [facility] [place] Hep B, Adol or Pedi Dosage 2000 00:00:00 Completed [facility] [place] Hep B, Adol or Pedi Dosage 2000 00:00:00 Completed [facility] [place] Hep B, Adol or Pedi Dosage 2000 00:00:00 Completed [facility] [place] Hep B, Adol or Pedi Dosage 2000 00:00:00 Completed [facility] [place] Hep B, Adol or Pedi Dosage 2000 00:00:00 Completed [facility] [place] Hep B, Adol or Pedi Dosage 2000 00:00:00 Completed [facility] [place] Hep B, Adol or Pedi Dosage 2000 00:00:00 Completed [facility] [place] Hep B, Adol or Pedi Dosage 2000 00:00:00 Completed [facility] [place] Hep B, Adol or Pedi Dosage 2000 00:00:00 Completed [facility] [place] Hep B, Adol or Pedi Dosage 2000 00:00:00 Completed Hep B, Adol or Pedi Dosage 2000 00:00:00 Completed Hep B, Adol or Pedi Dosage 2000 00:00:00 Completed [facility] [place] Hep B, Adol or Pedi Dosage 2000 00:00:00 Completed [facility] [place] Hep B, Adol or Pedi Dosage 2000 00:00:00 Completed [facility] [place] Hep B, Adol or Pedi Dosage 2000 00:00:00 Completed [facility] [place] TDAP Unknown Completed [facility] [place] SARS-COV-2 COVID-19 PFIZER VACCINE Unknown Completed [facility] [place] DTAP Unknown Completed [facility] [place] HIB 4 Dose Schedule Unknown Completed [facility] [place] HEPATITIS A Unknown Completed [facility] Hep B, Adol or Pedi Dosage Unknown Completed [facility] [place] HPV Unknown Completed [facility] [place] Meningococcal Polysaccharide (groups A, C, Y and W-135) conjugate vaccine (MCV4P) Unknown Completed [facility] MMR Unknown Completed [facility] [place] Polio (IPV/OPV) Unknown Completed [facility] Varicella (varivax)(chicken pox) Unknown Completed [facility] [place] Pneumococcal 7 Conjugate, PCV7 (Prevnar7) Unknown Completed [facility] [place] SARS-COV-2 COVID-19 VACCINE - (MODERNA) Unknown Completed [facility] DTaP, Unspecified Formulation Unknown Completed [facility] [place] Hib-HbOC Unknown Completed [facility] [place] IPV Unknown Completed [facility] [place] TDAP Unknown Completed [facility] [place] SARS-COV-2 COVID-19 PFIZER VACCINE Unknown Completed [facility] [place] DTAP Unknown Completed [facility] [place] HIB 4 Dose Schedule Unknown Completed [facility] [place] HEPATITIS A Unknown Completed [facility] Hep B, Adol or Pedi Dosage Unknown Completed [facility] [place] HPV Unknown Completed [facility] [place] Meningococcal Polysaccharide (groups A, C, Y and W-135) conjugate vaccine (MCV4P) Unknown Completed [facility] MMR Unknown Completed [facility] [place] Polio (IPV/OPV) Unknown Completed [facility] Varicella (varivax)(chicken pox) Unknown Completed [facility] [place] Pneumococcal 7 Conjugate, PCV7 (Prevnar7) Unknown Completed [facility] [place] SARS-COV-2 COVID-19 VACCINE - (MODERNA) Unknown Completed [facility] DTaP, Unspecified Formulation Unknown Completed [facility] [place] Hib-HbOC Unknown Completed [facility] [place] IPV Unknown Completed [facility] [place] TDAP Unknown Completed [facility] [place] SARS-COV-2 COVID-19 PFIZER VACCINE Unknown Completed [facility] [place] DTAP Unknown Completed [facility] [place] HIB 4 Dose Schedule Unknown Completed [facility] [place] HEPATITIS A Unknown Completed [facility] Hep B, Adol or Pedi Dosage Unknown Completed [facility] [place] HPV Unknown Completed [facility] [place] Meningococcal Polysaccharide (groups A, C, Y and W-135) conjugate vaccine (MCV4P) Unknown Completed [facility] MMR Unknown Completed [facility] [place] Polio (IPV/OPV) Unknown Completed [facility] Varicella (varivax)(chicken pox) Unknown Completed [facility] [place] Pneumococcal 7 Conjugate, PCV7 (Prevnar7) Unknown Completed [facility] [place] SARS-COV-2 COVID-19 VACCINE - (MODERNA) Unknown Completed [facility] DTaP, Unspecified Formulation Unknown Completed [facility] [place] Hib-HbOC Unknown Completed [facility] [place] IPV Unknown Completed [facility] [place] TDAP Unknown Completed [facility] [place] SARS-COV-2 COVID-19 PFIZER VACCINE Unknown Completed [facility] [place] DTAP Unknown Completed [facility] [place] HIB 4 Dose Schedule Unknown Completed [facility] [place] HEPATITIS A Unknown Completed [facility] Hep B, Adol or Pedi Dosage Unknown Completed [facility] [place] HPV Unknown Completed [facility] [place] Meningococcal Polysaccharide (groups A, C, Y and W-135) conjugate vaccine (MCV4P) Unknown Completed [facility] MMR Unknown Completed [facility] [place] Polio (IPV/OPV) Unknown Completed [facility] Varicella (varivax)(chicken pox) Unknown Completed [facility] [place] Pneumococcal 7 Conjugate, PCV7 (Prevnar7) Unknown Completed [facility] [place] SARS-COV-2 COVID-19 VACCINE - (MODERNA) Unknown Completed [facility] DTaP, Unspecified Formulation Unknown Completed [facility] [place] Hib-HbOC Unknown Completed [facility] [place] IPV Unknown Completed [facility] [place] TDAP Unknown Completed [facility] [place] SARS-COV-2 COVID-19 PFIZER VACCINE Unknown Completed [facility] [place] DTAP Unknown Completed [facility] [place] HIB 4 Dose Schedule Unknown Completed [facility] [place] HEPATITIS A Unknown Completed [facility] Hep B, Adol or Pedi Dosage Unknown Completed [facility] [place] HPV Unknown Completed [facility] [place] Meningococcal Polysaccharide (groups A, C, Y and W-135) conjugate vaccine (MCV4P) Unknown Completed [facility] MMR Unknown Completed [facility] [place] Polio (IPV/OPV) Unknown Completed [facility] Varicella (varivax)(chicken pox) Unknown Completed [facility] [place] Pneumococcal 7 Conjugate, PCV7 (Prevnar7) Unknown Completed [facility] [place] SARS-COV-2 COVID-19 VACCINE - (MODERNA) Unknown Completed [facility] DTaP, Unspecified Formulation Unknown Completed [facility] [place] Hib-HbOC Unknown Completed [facility] [place] IPV Unknown Completed [facility] [place] Hib-HbOC Unknown Completed [facility] [place] TDAP Unknown Completed [facility] [place] SARS-COV-2 COVID-19 PFIZER VACCINE Unknown Completed [facility] [place] DTAP Unknown Completed [facility] [place] HIB 4 Dose Schedule Unknown Completed [facility] [place] HEPATITIS A Unknown Completed [facility] Hep B, Adol or Pedi Dosage Unknown Completed [facility] [place] HPV Unknown Completed [facility] [place] Meningococcal Polysaccharide (groups A, C, Y and W-135) conjugate vaccine (MCV4P) Unknown Completed [facility] MMR Unknown Completed [facility] [place] Polio (IPV/OPV) Unknown Completed [facility] Varicella (varivax)(chicken pox) Unknown Completed [facility] [place] Pneumococcal 7 Conjugate, PCV7 (Prevnar7) Unknown Completed [facility] [place] SARS-COV-2 COVID-19 VACCINE - (MODERNA) Unknown Completed [facility] DTaP, Unspecified Formulation Unknown Completed [facility] [place] IPV Unknown Completed [facility] [place] TDAP Unknown Completed [facility] [place] SARS-COV-2 COVID-19 PFIZER VACCINE Unknown Completed [facility] [place] DTAP Unknown Completed [facility] [place] HIB 4 Dose Schedule Unknown Completed [facility] [place] HEPATITIS A Unknown Completed [facility] Hep B, Adol or Pedi Dosage Unknown Completed [facility] [place] HPV Unknown Completed [facility] [place] Meningococcal Polysaccharide (groups A, C, Y and W-135) conjugate vaccine (MCV4P) Unknown Completed [facility] MMR Unknown Completed [facility] [place] Polio (IPV/OPV) Unknown Completed [facility] Varicella (varivax)(chicken pox) Unknown Completed [facility] [place] Pneumococcal 7 Conjugate, PCV7 (Prevnar7) Unknown Completed [facility] [place] SARS-COV-2 COVID-19 VACCINE - (MODERNA) Unknown Completed [facility] DTaP, Unspecified Formulation Unknown Completed [facility] [place] Hib-HbOC Unknown Completed [facility] [place] IPV Unknown Completed [facility] [place] TDAP Unknown Completed [facility] [place] SARS-COV-2 COVID-19 PFIZER VACCINE Unknown Completed [facility] [place] DTAP Unknown Completed [facility] [place] HIB 4 Dose Schedule Unknown Completed [facility] [place] HEPATITIS A Unknown Completed [facility] Hep B, Adol or Pedi Dosage Unknown Completed [facility] [place] HPV Unknown Completed [facility] [place] Meningococcal Polysaccharide (groups A, C, Y and W-135) conjugate vaccine (MCV4P) Unknown Completed [facility] MMR Unknown Completed [facility] [place] Polio (IPV/OPV) Unknown Completed [facility] Varicella (varivax)(chicken pox) Unknown Completed [facility] [place] Pneumococcal 7 Conjugate, PCV7 (Prevnar7) Unknown Completed [facility] [place] SARS-COV-2 COVID-19 VACCINE - (MODERNA) Unknown Completed [facility] DTaP, Unspecified Formulation Unknown Completed [facility] [place] Hib-HbOC Unknown Completed [facility] [place] IPV Unknown Completed [facility] [place] TDAP Unknown Completed [facility] [place] SARS-COV-2 COVID-19 PFIZER VACCINE Unknown Completed [facility] [place] DTAP Unknown Completed [facility] [place] HIB 4 Dose Schedule Unknown Completed [facility] [place] HEPATITIS A Unknown Completed [facility] Hep B, Adol or Pedi Dosage Unknown Completed [facility] [place] HPV Unknown Completed [facility] [place] Meningococcal Polysaccharide (groups A, C, Y and W-135) conjugate vaccine (MCV4P) Unknown Completed [facility] MMR Unknown Completed [facility] [place] Polio (IPV/OPV) Unknown Completed [facility] Varicella (varivax)(chicken pox) Unknown Completed [facility] [place] Pneumococcal 7 Conjugate, PCV7 (Prevnar7) Unknown Completed [facility] [place] SARS-COV-2 COVID-19 VACCINE - (MODERNA) Unknown Completed [facility] DTaP, Unspecified Formulation Unknown Completed [facility] [place] Hib-HbOC Unknown Completed [facility] [place] IPV Unknown Completed [facility] [place] TDAP Unknown Completed [facility] [place] SARS-COV-2 COVID-19 PFIZER VACCINE Unknown Completed [facility] [place] DTAP Unknown Completed [facility] [place] HIB 4 Dose Schedule Unknown Completed [facility] [place] HEPATITIS A Unknown Completed [facility] Hep B, Adol or Pedi Dosage Unknown Completed [facility] [place] HPV Unknown Completed [facility] [place] Meningococcal Polysaccharide (groups A, C, Y and W-135) conjugate vaccine (MCV4P) Unknown Completed [facility] MMR Unknown Completed [facility] [place] Polio (IPV/OPV) Unknown Completed [facility] Varicella (varivax)(chicken pox) Unknown Completed [facility] [place] Pneumococcal 7 Conjugate, PCV7 (Prevnar7) Unknown Completed [facility] [place] SARS-COV-2 COVID-19 VACCINE - (MODERNA) Unknown Completed [facility] DTaP, Unspecified Formulation Unknown Completed [facility] [place] Hib-HbOC Unknown Completed [facility] [place] IPV Unknown Completed [facility] [place] Hib-HbOC Unknown Completed [facility] [place] TDAP Unknown Completed [facility] [place] SARS-COV-2 COVID-19 PFIZER VACCINE Unknown Completed [facility] [place] DTAP Unknown Completed [facility] [place] HIB 4 Dose Schedule Unknown Completed [facility] [place] HEPATITIS A Unknown Completed [facility] Hep B, Adol or Pedi Dosage Unknown Completed [facility] [place] HPV Unknown Completed [facility] [place] Meningococcal Polysaccharide (groups A, C, Y and W-135) conjugate vaccine (MCV4P) Unknown Completed [facility] MMR Unknown Completed [facility] [place] Polio (IPV/OPV) Unknown Completed [facility] Varicella (varivax)(chicken pox) Unknown Completed [facility] [place] Pneumococcal 7 Conjugate, PCV7 (Prevnar7) Unknown Completed [facility] [place] SARS-COV-2 COVID-19 VACCINE - (MODERNA) Unknown Completed [facility] DTaP, Unspecified Formulation Unknown Completed [facility] [place] IPV Unknown Completed [facility] [place] TDAP Unknown Completed [facility] [place] SARS-COV-2 COVID-19 PFIZER VACCINE Unknown Completed [facility] [place] DTAP Unknown Completed [facility] [place] HIB 4 Dose Schedule Unknown Completed [facility] [place] HEPATITIS A Unknown Completed [facility] Hep B, Adol or Pedi Dosage Unknown Completed [facility] [place] HPV Unknown Completed [facility] [place] Meningococcal Polysaccharide (groups A, C, Y and W-135) conjugate vaccine (MCV4P) Unknown Completed [facility] MMR Unknown Completed [facility] [place] Polio (IPV/OPV) Unknown Completed [facility] Varicella (varivax)(chicken pox) Unknown Completed [facility] [place] Pneumococcal 7 Conjugate, PCV7 (Prevnar7) Unknown Completed [facility] [place] SARS-COV-2 COVID-19 VACCINE - (MODERNA) Unknown Completed [facility] DTaP, Unspecified Formulation Unknown Completed [facility] [place] Hib-HbOC Unknown Completed [facility] [place] IPV Unknown Completed [facility] [place] Hib-HbOC Unknown Completed [facility] [place] TDAP Unknown Completed [facility] [place] SARS-COV-2 COVID-19 PFIZER VACCINE Unknown Completed [facility] [place] DTAP Unknown Completed [facility] [place] HIB 4 Dose Schedule Unknown Completed [facility] [place] HEPATITIS A Unknown Completed [facility] Hep B, Adol or Pedi Dosage Unknown Completed [facility] [place] HPV Unknown Completed [facility] [place] Meningococcal Polysaccharide (groups A, C, Y and W-135) conjugate vaccine (MCV4P) Unknown Completed [facility] MMR Unknown Completed [facility] [place] Polio (IPV/OPV) Unknown Completed [facility] Varicella (varivax)(chicken pox) Unknown Completed [facility] [place] Pneumococcal 7 Conjugate, PCV7 (Prevnar7) Unknown Completed [facility] [place] SARS-COV-2 COVID-19 VACCINE - (MODERNA) Unknown Completed [facility] DTaP, Unspecified Formulation Unknown Completed [facility] [place] IPV Unknown Completed [facility] [place] TDAP Unknown Completed [facility] [place] SARS-COV-2 COVID-19 PFIZER VACCINE Unknown Completed [facility] [place] DTAP Unknown Completed [facility] [place] HIB 4 Dose Schedule Unknown Completed [facility] [place] HEPATITIS A Unknown Completed [facility] Hep B, Adol or Pedi Dosage Unknown Completed [facility] [place] HPV Unknown Completed [facility] [place] Meningococcal Polysaccharide (groups A, C, Y and W-135) conjugate vaccine (MCV4P) Unknown Completed [facility] MMR Unknown Completed [facility] [place] Polio (IPV/OPV) Unknown Completed [facility] Varicella (varivax)(chicken pox) Unknown Completed [facility] [place] Pneumococcal 7 Conjugate, PCV7 (Prevnar7) Unknown Completed [facility] [place] SARS-COV-2 COVID-19 VACCINE - (MODERNA) Unknown Completed [facility] DTaP, Unspecified Formulation Unknown Completed [facility] [place] Hib-HbOC Unknown Completed [facility] [place] IPV Unknown Completed [facility] [place] TDAP Unknown Completed [facility] [place] SARS-COV-2 COVID-19 PFIZER VACCINE Unknown Completed [facility] [place] DTAP Unknown Completed [facility] [place] HIB 4 Dose Schedule Unknown Completed [facility] [place] HEPATITIS A Unknown Completed [facility] Hep B, Adol or Pedi Dosage Unknown Completed [facility] [place] HPV Unknown Completed [facility] [place] Meningococcal Polysaccharide (groups A, C, Y and W-135) conjugate vaccine (MCV4P) Unknown Completed [facility] MMR Unknown Completed [facility] [place] Polio (IPV/OPV) Unknown Completed [facility] Varicella (varivax)(chicken pox) Unknown Completed [facility] [place] Pneumococcal 7 Conjugate, PCV7 (Prevnar7) Unknown Completed [facility] [place] SARS-COV-2 COVID-19 VACCINE - (MODERNA) Unknown Completed [facility] DTaP, Unspecified Formulation Unknown Completed [facility] [place] Hib-HbOC Unknown Completed [facility] [place] IPV Unknown Completed [facility] [place] Hib-HbOC Unknown Completed [facility] [place] TDAP Unknown Completed [facility] [place] SARS-COV-2 COVID-19 PFIZER VACCINE Unknown Completed [facility] [place] DTAP Unknown Completed [facility] [place] HIB 4 Dose Schedule Unknown Completed [facility] [place] HEPATITIS A Unknown Completed [facility] Hep B, Adol or Pedi Dosage Unknown Completed [facility] [place] HPV Unknown Completed [facility] [place] Meningococcal Polysaccharide (groups A, C, Y and W-135) conjugate vaccine (MCV4P) Unknown Completed [facility] MMR Unknown Completed [facility] [place] Polio (IPV/OPV) Unknown Completed [facility] Varicella (varivax)(chicken pox) Unknown Completed [facility] [place] Pneumococcal 7 Conjugate, PCV7 (Prevnar7) Unknown Completed [facility] [place] SARS-COV-2 COVID-19 VACCINE - (MODERNA) Unknown Completed [facility] DTaP, Unspecified Formulation Unknown Completed [facility] [place] IPV Unknown Completed [facility] [place] Hib-HbOC Unknown Completed [facility] TDAP Unknown Completed [facility] SARS-COV-2 COVID-19 PFIZER VACCINE Unknown Completed [facility] DTAP Unknown Completed [facility] HIB 4 Dose Schedule Unknown Completed [facility] HEPATITIS A Unknown Completed [facility] Hep B, Adol or Pedi Dosage Unknown Completed [facility] HPV Unknown Completed [facility] Meningococcal Polysaccharide (groups A, C, Y and W-135) conjugate vaccine (MCV4P) Unknown Completed [facility] MMR Unknown Completed [facility] Polio (IPV/OPV) Unknown Completed [facility] Varicella (varivax)(chicken pox) Unknown Completed [facility] Pneumococcal 7 Conjugate, PCV7 (Prevnar7) Unknown Completed [facility] SARS-COV-2 COVID-19 VACCINE - (MODERNA) Unknown Completed [facility] DTaP, Unspecified Formulation Unknown Completed [facility] IPV Unknown Completed [facility] Hib-HbOC Unknown Completed [facility] TDAP Unknown Completed [facility] SARS-COV-2 COVID-19 PFIZER VACCINE Unknown Completed [facility] DTAP Unknown Completed [facility] HIB 4 Dose Schedule Unknown Completed [facility] HEPATITIS A Unknown Completed [facility] Hep B, Adol or Pedi Dosage Unknown Completed [facility] HPV Unknown Completed [facility] Meningococcal Polysaccharide (groups A, C, Y and W-135) conjugate vaccine (MCV4P) Unknown Completed [facility] MMR Unknown Completed [facility] Polio (IPV/OPV) Unknown Completed [facility] Varicella (varivax)(chicken pox) Unknown Completed [facility] Pneumococcal 7 Conjugate, PCV7 (Prevnar7) Unknown Completed [facility] SARS-COV-2 COVID-19 VACCINE - (MODERNA) Unknown Completed [facility] DTaP, Unspecified Formulation Unknown Completed [facility] IPV Unknown Completed [facility] TDAP Unknown Completed [facility] SARS-COV-2 COVID-19 PFIZER VACCINE Unknown Completed [facility] DTAP Unknown Completed [facility] HIB 4 Dose Schedule Unknown Completed [facility] HEPATITIS A Unknown [facility] Hep B, Adol or Pedi Dosage Unknown Completed [facility] HPV Unknown Completed [facility] Meningococcal Polysaccharide (groups A, C, Y and W-135) conjugate vaccine (MCV4P) Unknown Completed [facility] MMR Unknown Completed [facility] Polio (IPV/OPV) Unknown Completed [facility] Varicella (varivax)(chicken pox) Unknown Completed [facility] Pneumococcal 7 Conjugate, PCV7 (Prevnar7) Unknown Completed [facility] SARS-COV-2 COVID-19 VACCINE - (MODERNA) Unknown Completed [facility] DTaP, Unspecified Formulation Unknown Completed [facility] Hib-HbOC Unknown Completed [facility] IPV Unknown Completed [facility] TDAP Unknown Completed [facility] SARS-COV-2 COVID-19 PFIZER VACCINE Unknown Completed [facility] DTAP Unknown Completed [facility] HIB 4 Dose Schedule Unknown Completed [facility] HEPATITIS A Unknown Completed [facility] Hep B, Adol or Pedi Dosage Unknown Completed [facility] HPV Unknown Completed [facility] Meningococcal Polysaccharide (groups A, C, Y and W-135) conjugate vaccine (MCV4P) Unknown Completed [facility] MMR Unknown Completed [facility] Polio (IPV/OPV) Unknown Completed [facility] Varicella (varivax)(chicken pox) Unknown Completed [facility] Pneumococcal 7 Conjugate, PCV7 (Prevnar7) Unknown Completed [facility] SARS-COV-2 COVID-19 VACCINE - (MODERNA) Unknown Completed [facility] DTaP, Unspecified Formulation Unknown Completed [facility] Hib-HbOC Unknown Completed [facility] IPV Unknown Completed [facility] TDAP Unknown Completed [facility] SARS-COV-2 COVID-19 PFIZER VACCINE Unknown Completed [facility] DTAP Unknown Completed [facility] HIB 4 Dose Schedule Unknown Completed [facility] HEPATITIS A Unknown Completed [facility] Hep B, Adol or Pedi Dosage Unknown Completed [facility] HPV Unknown Completed [facility] Meningococcal Polysaccharide (groups A, C, Y and W-135) conjugate vaccine (MCV4P) Unknown Completed [facility] MMR Unknown Completed [facility] Polio (IPV/OPV) Unknown Completed [facility] Varicella (varivax)(chicken pox) Unknown Completed [facility] Pneumococcal 7 Conjugate, PCV7 (Prevnar7) Unknown Completed [facility] SARS-COV-2 COVID-19 VACCINE - (MODERNA) Unknown Completed [facility] DTaP, Unspecified Formulation Unknown Completed [facility] Hib-HbOC Unknown Completed [facility] IPV Unknown Completed [facility] TDAP Unknown Completed [facility] SARS-COV-2 COVID-19 PFIZER VACCINE Unknown Completed [facility] DTAP Unknown Completed [facility] HIB 4 Dose Schedule Unknown Completed [facility] HEPATITIS A Unknown Completed [facility] Hep B, Adol or Pedi Dosage Unknown Completed [facility] HPV Unknown Completed [facility] Meningococcal Polysaccharide (groups A, C, Y and W-135) conjugate vaccine (MCV4P) Unknown Completed [facility] MMR Unknown Completed [facility] Polio (IPV/OPV) Unknown Completed [facility] Varicella (varivax)(chicken pox) Unknown Completed [facility] Pneumococcal 7 Conjugate, PCV7 (Prevnar7) Unknown Completed [facility] SARS-COV-2 COVID-19 VACCINE - (MODERNA) Unknown Completed [facility] DTaP, Unspecified Formulation Unknown Completed [facility] Hib-HbOC Unknown Completed [facility] IPV Unknown Completed [facility] TDAP Unknown Completed [facility] SARS-COV-2 COVID-19 PFIZER VACCINE Unknown Completed [facility] DTAP Unknown Completed [facility] HIB 4 Dose Schedule Unknown Completed [facility] HEPATITIS A Unknown Completed [facility] Hep B, Adol or Pedi Dosage Unknown Completed [facility] HPV Unknown Completed [facility] Meningococcal Polysaccharide (groups A, C, Y and W-135) conjugate vaccine (MCV4P) Unknown Completed [facility] MMR Unknown Completed [facility] Polio (IPV/OPV) Unknown Completed [facility] Varicella (varivax)(chicken pox) Unknown Completed [facility] Pneumococcal 7 Conjugate, PCV7 (Prevnar7) Unknown Completed [facility] SARS-COV-2 COVID-19 VACCINE - (MODERNA) Unknown Completed [facility] DTaP, Unspecified Formulation Unknown Completed [facility] Hib-HbOC Unknown Completed [facility] IPV Unknown Completed [facility] Hib-HbOC Unknown Completed [facility] TDAP Unknown Completed [facility] SARS-COV-2 COVID-19 PFIZER VACCINE Unknown Completed [facility] DTAP Unknown Completed [facility] HIB 4 Dose Schedule Unknown Completed [facility] HEPATITIS A Unknown Completed [facility] Hep B, Adol or Pedi Dosage Unknown Completed [facility] HPV Unknown Completed [facility] Meningococcal Polysaccharide (groups A, C, Y and W-135) conjugate vaccine (MCV4P) Unknown Completed [facility] MMR Unknown Completed [facility] Polio (IPV/OPV) Unknown Completed [facility] Varicella (varivax)(chicken pox) Unknown Completed [facility] Pneumococcal 7 Conjugate, PCV7 (Prevnar7) Unknown Completed [facility] SARS-COV-2 COVID-19 VACCINE - (MODERNA) Unknown Completed [facility] DTaP, Unspecified Formulation Unknown Completed [facility] IPV Unknown Completed [facility] TDAP Unknown Completed [facility] SARS-COV-2 COVID-19 PFIZER VACCINE Unknown Completed [facility] DTAP Unknown Completed [facility] HIB 4 Dose Schedule Unknown Completed [facility] HEPATITIS A Unknown Completed [facility] Hep B, Adol or Pedi Dosage Unknown Completed [facility] HPV Unknown Completed [facility] Meningococcal Polysaccharide (groups A, C, Y and W-135) conjugate vaccine (MCV4P) Unknown Completed [facility] MMR Unknown Completed [facility] Polio (IPV/OPV) Unknown Completed [facility] Varicella (varivax)(chicken pox) Unknown Completed [facility] Pneumococcal 7 Conjugate, PCV7 (Prevnar7) Unknown Completed [facility] SARS-COV-2 COVID-19 VACCINE - (MODERNA) Unknown Completed [facility] DTaP, Unspecified Formulation Unknown Completed [facility] Hib-HbOC Unknown Completed [facility] IPV Unknown Completed [facility] TDAP Unknown Completed [facility] SARS-COV-2 COVID-19 PFIZER VACCINE Unknown Completed [facility] DTAP Unknown Completed [facility] HIB 4 Dose Schedule Unknown Completed [facility] HEPATITIS A Unknown Completed [facility] Hep B, Adol or Pedi Dosage Unknown Completed [facility] HPV Unknown Completed [facility] Meningococcal Polysaccharide (groups A, C, Y and W-135) conjugate vaccine (MCV4P) Unknown Completed [facility] MMR Unknown Completed [facility] Polio (IPV/OPV) Unknown Completed [facility] Varicella (varivax)(chicken pox) Unknown Completed [facility] Pneumococcal 7 Conjugate, PCV7 (Prevnar7) Unknown Completed [facility] SARS-COV-2 COVID-19 VACCINE - (MODERNA) Unknown Completed [facility] DTaP, Unspecified Formulation Unknown Completed [facility] Hib-HbOC Unknown Completed [facility] IPV Unknown Completed [facility] TDAP Unknown Completed [facility] SARS-COV-2 COVID-19 PFIZER VACCINE Unknown Completed [facility] DTAP Unknown Completed [facility] HIB 4 Dose Schedule Unknown Completed [facility] HEPATITIS A Unknown Completed [facility] Hep B, Adol or Pedi Dosage Unknown Completed [facility] HPV Unknown Completed [facility] Meningococcal Polysaccharide (groups A, C, Y and W-135) conjugate vaccine (MCV4P) Unknown Completed [facility] MMR Unknown Completed [facility] Polio (IPV/OPV) Unknown Completed [facility] Varicella (varivax)(chicken pox) Unknown Completed [facility] Pneumococcal 7 Conjugate, PCV7 (Prevnar7) Unknown Completed [facility] SARS-COV-2 COVID-19 VACCINE - (MODERNA) Unknown Completed [facility] DTaP, Unspecified Formulation Unknown Completed [facility] Hib-HbOC Unknown Completed [facility] IPV Unknown Completed [facility] TDAP Unknown Completed [facility] SARS-COV-2 COVID-19 PFIZER VACCINE Unknown Completed [facility] DTAP Unknown Completed [facility] HIB 4 Dose Schedule Unknown Completed [facility] HEPATITIS A Unknown Completed [facility] Hep B, Adol or Pedi Dosage Unknown Completed [facility] HPV Unknown Completed [facility] Meningococcal Polysaccharide (groups A, C, Y and W-135) conjugate vaccine (MCV4P) Unknown Completed [facility] MMR Unknown Completed [facility] Polio (IPV/OPV) Unknown Completed [facility] Varicella (varivax)(chicken pox) Unknown Completed [facility] Pneumococcal 7 Conjugate, PCV7 (Prevnar7) Unknown Completed [facility] SARS-COV-2 COVID-19 VACCINE - (MODERNA) Unknown Completed [facility] DTaP, Unspecified Formulation Unknown Completed [facility] Hib-HbOC Unknown Completed [facility] IPV Unknown Completed [facility] TDAP Unknown Completed [facility] SARS-COV-2 COVID-19 PFIZER VACCINE Unknown Completed [facility] DTAP Unknown Completed [facility] HIB 4 Dose Schedule Unknown Completed [facility] HEPATITIS A Unknown Completed [facility] Hep B, Adol or Pedi Dosage Unknown Completed [facility] HPV Unknown Completed [facility] Meningococcal Polysaccharide (groups A, C, Y and W-135) conjugate vaccine (MCV4P) Unknown Completed [facility] MMR Unknown Completed [facility] Polio (IPV/OPV) Unknown Completed [facility] Varicella (varivax)(chicken pox) Unknown Completed [facility] Pneumococcal 7 Conjugate, PCV7 (Prevnar7) Unknown Completed [facility] SARS-COV-2 COVID-19 VACCINE - (MODERNA) Unknown Completed [facility] DTaP, Unspecified Formulation Unknown Completed [facility] Hib-HbOC Unknown Completed [facility] IPV Unknown Completed [facility] TDAP Unknown Completed [facility] SARS-COV-2 COVID-19 PFIZER VACCINE Unknown Completed [facility] DTAP Unknown Completed [facility] HIB 4 Dose Schedule Unknown Completed [facility] HEPATITIS A Unknown Completed [facility] Hep B, Adol or Pedi Dosage Unknown Completed [facility] HPV Unknown Completed [facility] Meningococcal Polysaccharide (groups A, C, Y and W-135) conjugate vaccine (MCV4P) Unknown Completed [facility] MMR Unknown Completed [facility] Polio (IPV/OPV) Unknown Completed [facility] Varicella (varivax)(chicken pox) Unknown Completed [facility] Pneumococcal 7 Conjugate, PCV7 (Prevnar7) Unknown Completed [facility] SARS-COV-2 COVID-19 VACCINE - (MODERNA) Unknown Completed [facility] DTaP, Unspecified Formulation Unknown Completed [facility] Hib-HbOC Unknown Completed [facility] IPV Unknown Completed [facility] TDAP Unknown Completed [facility] SARS-COV-2 COVID-19 PFIZER VACCINE Unknown Completed [facility] DTAP Unknown Completed [facility] HIB 4 Dose Schedule Unknown Completed [facility] HEPATITIS A Unknown Completed [facility] Hep B, Adol or Pedi Dosage Unknown Completed [facility] HPV Unknown Completed [facility] Meningococcal Polysaccharide (groups A, C, Y and W-135) conjugate vaccine (MCV4P) Unknown Completed [facility] MMR Unknown Completed [facility] Polio (IPV/OPV) Unknown Completed [facility] Varicella (varivax)(chicken pox) Unknown Completed [facility] Pneumococcal 7 Conjugate, PCV7 (Prevnar7) Unknown Completed [facility] SARS-COV-2 COVID-19 VACCINE - (MODERNA) Unknown Completed [facility] DTaP, Unspecified Formulation Unknown Completed [facility] Hib-HbOC Unknown Completed [facility] IPV Unknown Completed [facility] TDAP Unknown Completed [facility] SARS-COV-2 COVID-19 PFIZER VACCINE Unknown Completed [facility] DTAP Unknown Completed [facility] HIB 4 Dose Schedule Unknown Completed [facility] HEPATITIS A Unknown Completed [facility] Hep B, Adol or Pedi Dosage Unknown Completed [facility] HPV Unknown Completed [facility] Meningococcal Polysaccharide (groups A, C, Y and W-135) conjugate vaccine (MCV4P) Unknown Completed [facility] MMR Unknown Completed [facility] Polio (IPV/OPV) Unknown Completed [facility] Varicella (varivax)(chicken pox) Unknown Completed [facility] Pneumococcal 7 Conjugate, PCV7 (Prevnar7) Unknown Completed [facility] SARS-COV-2 COVID-19 VACCINE - (MODERNA) Unknown Completed [facility] DTaP, Unspecified Formulation Unknown Completed [facility] Hib-HbOC Unknown Completed [facility] IPV Unknown Completed [facility] TDAP Unknown Completed [facility] SARS-COV-2 COVID-19 PFIZER VACCINE Unknown Completed [facility] DTAP Unknown Completed [facility] HIB 4 Dose Schedule Unknown Completed [facility] HEPATITIS A Unknown Completed [facility] Hep B, Adol or Pedi Dosage Unknown Completed [facility] HPV Unknown Completed [facility] Meningococcal Polysaccharide (groups A, C, Y and W-135) conjugate vaccine (MCV4P) Unknown Completed [facility] MMR Unknown Completed [facility] Polio (IPV/OPV) Unknown Completed [facility] Varicella (varivax)(chicken pox) Unknown Completed [facility] Pneumococcal 7 Conjugate, PCV7 (Prevnar7) Unknown Completed [facility] SARS-COV-2 COVID-19 VACCINE - (MODERNA) Unknown Completed [facility] DTaP, Unspecified Formulation Unknown Completed [facility] Hib-HbOC Unknown Completed [facility] IPV Unknown Completed [facility] TDAP Unknown Completed [facility] SARS-COV-2 COVID-19 PFIZER VACCINE Unknown Completed [facility] DTAP Unknown Completed [facility] HIB 4 Dose Schedule Unknown Completed [facility] HEPATITIS A Unknown Completed [facility] Hep B, Adol or Pedi Dosage Unknown Completed [facility] HPV Unknown Completed [facility] Meningococcal Polysaccharide (groups A, C, Y and W-135) conjugate vaccine (MCV4P) Unknown Completed [facility] MMR Unknown Completed [facility] Polio (IPV/OPV) Unknown Completed [facility] Varicella (varivax)(chicken pox) Unknown Completed [facility] Pneumococcal 7 Conjugate, PCV7 (Prevnar7) Unknown Completed [facility] SARS-COV-2 COVID-19 VACCINE - (MODERNA) Unknown Completed [facility] DTaP, Unspecified Formulation Unknown Completed [facility] Hib-HbOC Unknown Completed [facility] IPV Unknown Completed [facility] Vital Signs Vital Name Observation Time Observation Value Comments S ource Systolic blood pressure 2024-10-01 19:11:00 115 mm[Hg] [facility] Diastolic blood pressure 2024-10-01 19:11:00 76 mm[Hg] [facility] Heart rate 2024-10-01 19:11:00 99 /min [facility] Body temperature 2024-10-01 19:11:00 37 Es [facility] Body height 2024-10-01 19:11:00 172.7 cm [facility] Body weight 2024-10-01 19:11:00 98.793 kg [facility] BMI 2024-10-01 19:11:00 33.12 kg/m2 [facility] Oxygen saturation in Arterial blood by Pulse oximetry 2024-10-01 19:11:00 97 /min [facility] Systolic blood pressure 2024-05-23 18:19:00 116 mm[Hg] [facility] Diastolic blood pressure 2024-05-23 18:19:00 77 mm[Hg] [facility] Heart rate 2024-05-23 18:19:00 100 /min [facility] Body temperature 2024-05-23 18:19:00 35.78 Es [facility] Respiratory rate 2024-05-23 18:19:00 18 /min [facility] Body height 2024-05-23 18:19:00 170.2 cm [facility] Body weight 2024-05-23 18:19:00 95.029 kg [facility] BMI 2024-05-23 18:19:00 32.81 kg/m2 [facility] Systolic blood pressure 2024-01-08 16:09:00 113 mm[Hg] [facility] Diastolic blood pressure 2024-01-08 16:09:00 72 mm[Hg] [facility] Heart rate 2024-01-08 16:08:00 85 /min [facility] Body temperature 2024-01-08 16:08:00 36.89 Es [facility] Respiratory rate 2024-01-08 16:08:00 20 /min [facility] Body height 2024-01-08 16:08:00 170.2 cm [facility] Body weight 2024-01-08 16:08:00 97.705 kg [facility] BMI 2024-01-08 16:08:00 33.74 kg/m2 [facility] Oxygen saturation in Arterial blood by Pulse oximetry 2024-01-08 16:08:00 99 /min [facility] Systolic blood pressure 2023-12-25 20:04:00 128 mm[Hg] [facility] Diastolic blood pressure 2023-12-25 20:04:00 88 mm[Hg] [facility] Heart rate 2023-12-25 20:04:00 92 /min [facility] Respiratory rate 2023-12-25 20:04:00 18 /min [facility] Body height 2023-12-25 20:04:00 170.2 cm [facility] Body weight 2023-12-25 20:04:00 97.614 kg [facility] BMI 2023-12-25 20:04:00 33.71 kg/m2 [facility] Oxygen saturation in Arterial blood by Pulse oximetry 2023-12-25 20:04:00 95 /min [facility] Systolic blood pressure 2023-12-17 19:13:00 126 mm[Hg] [facility] Diastolic blood pressure 2023-12-17 19:13:00 89 mm[Hg] [facility] Heart rate 2023-12-17 19:13:00 111 /min [facility] Body temperature 2023-12-17 19:13:00 36.39 Es [facility] Respiratory rate 2023-12-17 19:13:00 18 /min [facility] Body height 2023-12-17 19:13:00 170.2 cm [facility] Body weight 2023-12-17 19:13:00 96.979 kg [facility] BMI 2023-12-17 19:13:00 33.49 kg/m2 [facility] Systolic blood pressure 2023-12-04 16:04:00 129 mm[Hg] [facility] Diastolic blood pressure 2023-12-04 16:04:00 80 mm[Hg] [facility] Heart rate 2023-12-04 16:04:00 75 /min [facility] Body height 2023-12-04 16:04:00 170.2 cm [facility] Body weight 2023-12-04 16:04:00 97.478 kg [facility] BMI 2023-12-04 16:04:00 33.66 kg/m2 [facility] Oxygen saturation in Arterial blood by Pulse oximetry 2023-12-04 16:04:00 100 /min [facility] Systolic blood pressure 2023-11-30 19:14:00 139 mm[Hg] [facility] Diastolic blood pressure 2023-11-30 19:14:00 97 mm[Hg] [facility] Heart rate 2023-11-30 19:14:00 98 /min [facility] Oxygen saturation in Arterial blood by Pulse oximetry 2023-11-30 19:11:00 94 /min [facility] Body temperature 2023-11-30 18:32:00 37.17 Es [facility] Respiratory rate 2023-11-30 18:32:00 20 /min [facility] Body height 2023-11-30 18:32:00 170.2 cm [facility] Body weight 2023-11-30 18:32:00 95.709 kg [facility] BMI 2023-11-30 18:32:00 33.05 kg/m2 [facility] Systolic blood pressure 2023-11-19 18:22:00 113 mm[Hg] [facility] Diastolic blood pressure 2023-11-19 18:22:00 75 mm[Hg] [facility] Heart rate 2023-11-19 18:22:00 102 /min [facility] Body temperature 2023-11-19 18:22:00 36.22 Es [facility] Respiratory rate 2023-11-19 18:22:00 18 /min [facility] Body height 2023-11-19 18:22:00 170.2 cm [facility] Body weight 2023-11-19 18:22:00 96.208 kg [facility] BMI 2023-11-19 18:22:00 33.22 kg/m2 [facility] Systolic blood pressure 2023-11-15 16:11:00 124 mm[Hg] [facility] Diastolic blood pressure 2023-11-15 16:11:00 82 mm[Hg] [facility] Heart rate 2023-11-15 15:40:00 72 /min [facility] Body temperature 2023-11-15 15:40:00 36.94 Es [facility] Body height 2023-11-15 15:40:00 170.2 cm [facility] Body weight 2023-11-15 15:40:00 95.255 kg [facility] BMI 2023-11-15 15:40:00 32.89 kg/m2 [facility] Oxygen saturation in Arterial blood by Pulse oximetry 2023-11-15 15:40:00 100 /min [facility] Systolic blood pressure 2023-10-22 18:12:00 129 mm[Hg] [facility] Diastolic blood pressure 2023-10-22 18:12:00 81 mm[Hg] [facility] Heart rate 2023-10-22 18:12:00 104 /min [facility] Body temperature 2023-10-22 18:12:00 36.11 Es [facility] Respiratory rate 2023-10-22 18:12:00 16 /min [facility] Body height 2023-10-22 18:12:00 172.7 cm [facility] Body weight 2023-10-22 18:12:00 95.754 kg [facility] BMI 2023-10-22 18:12:00 32.10 kg/m2 [facility] Systolic blood pressure 2023-10-17 14:59:00 131 mm[Hg] [facility] Diastolic blood pressure 2023-10-17 14:59:00 77 mm[Hg] [facility] Heart rate 2023-10-17 14:59:00 81 /min [facility] Body temperature 2023-10-17 14:59:00 36.5 Es [facility] Respiratory rate 2023-10-17 14:59:00 18 /min [facility] Body height 2023-10-17 14:59:00 172.7 cm [facility] Body weight 2023-10-17 14:59:00 95.255 kg [facility] BMI 2023-10-17 14:59:00 31.93 kg/m2 [facility] Systolic blood pressure 2023-10-09 17:43:00 122 mm[Hg] [facility] Diastolic blood pressure 2023-10-09 17:43:00 82 mm[Hg] [facility] Heart rate 2023-10-09 17:42:00 81 /min [facility] Body temperature 2023-10-09 17:42:00 36.5 Es [facility] Respiratory rate 2023-10-09 17:42:00 16 /min [facility] Body height 2023-10-09 17:42:00 172.7 cm [facility] Body weight 2023-10-09 17:42:00 96.616 kg [facility] BMI 2023-10-09 17:42:00 32.39 kg/m2 [facility] Oxygen saturation in Arterial blood by Pulse oximetry 2023-10-09 17:42:00 100 /min [facility] Systolic blood pressure 2023-09-11 15:30:00 130 mm[Hg] [facility] Diastolic blood pressure 2023-09-11 15:30:00 92 mm[Hg] [facility] Heart rate 2023-09-11 15:30:00 106 /min [facility] Body temperature 2023-09-11 15:26:00 36.61 Es [facility] Respiratory rate 2023-09-11 15:26:00 18 /min [facility] Body height 2023-09-11 15:26:00 170.2 cm [facility] Body weight 2023-09-11 15:26:00 93.98 kg [facility] BMI 2023-09-11 15:26:00 32.45 kg/m2 [facility] Systolic blood pressure 2023-04-12 01:19:00 91 mm[Hg] [facility] Diastolic blood pressure 2023-04-12 01:19:00 68 mm[Hg] [facility] Heart rate 2023-04-12 01:19:00 85 /min [facility] Respiratory rate 2023-04-12 01:19:00 18 /min [facility] Oxygen saturation in Arterial blood by Pulse oximetry 2023-04-12 01:19:00 99 /min [facility] Body temperature 2023-04-11 23:47:00 36.89 Es [facility] Body height 2023-04-11 23:47:00 170.2 cm [facility] Body weight 2023-04-11 23:47:00 91.082 kg [facility] BMI 2023-04-11 23:47:00 31.45 kg/m2 [facility] Systolic blood pressure 2023-04-03 20:40:00 118 mm[Hg] [facility] Diastolic blood pressure 2023-04-03 20:40:00 74 mm[Hg] [facility] Heart rate 2023-04-03 20:40:00 99 /min [facility] Body temperature 2023-04-03 20:40:00 36.56 Es [facility] Respiratory rate 2023-04-03 20:40:00 20 /min [facility] Body height 2023-04-03 20:40:00 170.2 cm [facility] Body weight 2023-04-03 20:40:00 90.719 kg [facility] BMI 2023-04-03 20:40:00 31.32 kg/m2 [facility] Systolic blood pressure 2023-03-14 18:37:00 132 mm[Hg] [facility] Diastolic blood pressure 2023-03-14 18:37:00 82 mm[Hg] [facility] Heart rate 2023-03-14 18:37:00 96 /min [facility] Body temperature 2023-03-14 18:37:00 36.78 Es [facility] Respiratory rate 2023-03-14 18:37:00 20 /min [facility] Body height 2023-03-14 18:37:00 170.2 cm [facility] Body weight 2023-03-14 18:37:00 91.717 kg [facility] BMI 2023-03-14 18:37:00 31.67 kg/m2 [facility] Systolic blood pressure 2022-12-29 18:44:00 135 mm[Hg] [facility] Diastolic blood pressure 2022-12-29 18:44:00 85 mm[Hg] [facility] Heart rate 2022-12-29 18:44:00 95 /min [facility] Body temperature 2022-12-29 18:44:00 35.78 Es [facility] Respiratory rate 2022-12-29 18:44:00 18 /min [facility] Body height 2022-12-29 18:44:00 170.2 cm [facility] Body weight 2022-12-29 18:44:00 94.121 kg [facility] BMI 2022-12-29 18:44:00 32.50 kg/m2 [facility] Systolic blood pressure 2022-12-12 15:53:00 121 mm[Hg] [facility] Diastolic blood pressure 2022-12-12 15:53:00 84 mm[Hg] [facility] Heart rate 2022-12-12 15:53:00 108 /min [facility] Body temperature 2022-12-12 15:53:00 36.17 Es [facility] Respiratory rate 2022-12-12 15:53:00 18 /min [facility] Body height 2022-12-12 15:53:00 170.2 cm [facility] Body weight 2022-12-12 15:53:00 93.078 kg [facility] BMI 2022-12-12 15:53:00 32.14 kg/m2 [facility] Systolic blood pressure 2022-09-07 16:30:00 124 mm[Hg] [facility] Diastolic blood pressure 2022-09-07 16:30:00 85 mm[Hg] [facility] Respiratory rate 2022-09-07 16:29:00 18 /min [facility] Body height 2022-09-07 16:29:00 170.2 cm [facility] Body weight 2022-09-07 16:29:00 88.225 kg [facility] BMI 2022-09-07 16:29:00 30.46 kg/m2 [facility] Systolic blood pressure 2022-07-27 19:14:00 121 mm[Hg] [facility] Diastolic blood pressure 2022-07-27 19:14:00 83 mm[Hg] [facility] Heart rate 2022-07-27 19:14:00 125 /min [facility] Body temperature 2022-07-27 19:14:00 36.33 Es [facility] Respiratory rate 2022-07-27 19:14:00 18 /min [facility] Body weight 2022-07-27 19:14:00 86.365 kg [facility] BMI 2022-07-27 19:14:00 29.82 kg/m2 [facility] Systolic blood pressure 2022-07-14 21:15:00 136 mm[Hg] [facility] Diastolic blood pressure 2022-07-14 21:15:00 87 mm[Hg] [facility] Heart rate 2022-07-14 21:15:00 89 /min [facility] Body temperature 2022-07-14 21:15:00 36.17 Es [facility] Respiratory rate 2022-07-14 21:15:00 18 /min [facility] Body weight 2022-07-14 21:15:00 86.818 kg [facility] BMI 2022-07-14 21:15:00 29.98 kg/m2 [facility] Systolic blood pressure 2022-06-14 18:36:00 122 mm[Hg] [facility] Diastolic blood pressure 2022-06-14 18:36:00 82 mm[Hg] [facility] Heart rate 2022-06-14 18:36:00 83 /min [facility] Body temperature 2022-06-14 18:36:00 36.28 Es [facility] Respiratory rate 2022-06-14 18:36:00 17 /min [facility] Body height 2022-06-14 18:36:00 170.2 cm [facility] Body weight 2022-06-14 18:36:00 86.41 kg [facility] BMI 2022-06-14 18:36:00 29.84 kg/m2 [facility] Systolic blood pressure 2021-11-30 16:05:00 118 mm[Hg] [facility] Diastolic blood pressure 2021-11-30 16:05:00 74 mm[Hg] [facility] Heart rate 2021-11-30 16:05:00 92 /min [facility] Body temperature 2021-11-30 16:05:00 36.56 Es [facility] Respiratory rate 2021-11-30 16:05:00 18 /min [facility] Body height 2021-11-30 16:05:00 167.6 cm [facility] Body weight 2021-11-30 16:05:00 85.276 kg [facility] BMI 2021-11-30 16:05:00 30.34 kg/m2 [facility] Systolic blood pressure 2024-05-23 18:19:00 116 mm[Hg] [facility] Diastolic blood pressure 2024-05-23 18:19:00 77 mm[Hg] [facility] Heart rate 2024-05-23 18:19:00 100 /min [facility] Body temperature 2024-05-23 18:19:00 35.78 Es [facility] Respiratory rate 2024-05-23 18:19:00 18 /min [facility] Body height 2024-05-23 18:19:00 170.2 cm [facility] Body weight 2024-05-23 18:19:00 95.029 kg [facility] BMI 2024-05-23 18:19:00 32.81 kg/m2 [facility] Oxygen saturation in Arterial blood by Pulse oximetry 2024-01-08 16:08:00 99 /min [facility] Procedures Procedure Date / Time Performed Performing Clinician Source POCT TEST 2024-10-01 19:24:00 Nesha Mcgowan [facility] POCT URINALYSIS 2024-10-01 19:22:00 Nesha Mcgowan [facility] POCT TEST 2024-05-23 18:40:00 Hannah Torres [facility] PROGESTERONE, LEVEL 2024-02-01 18:25:00 Dangelo Levin [facility] POCT MOLECULAR FLU 2024-01-08 16:16:00 Unknown, Attending [facility] [place] HYSTEROSALPINGOGRAM 2023-12-14 16:00:00 Melodie Mireles [facility] POCT TEST 2023-11-15 16:17:00 Nesha Mcgowan [facility] [place] HYSTEROSALPINGOGRAM 2023-11-07 16:39:05 Brodie Sal [facility] US PELVIS COMPLETE WITH TRANSVAGINAL 2023-10-25 21:13:56 Brodie Sal [facility] PROLACTIN 2023-10-17 15:28:00 Viki Melendrez [facility] THYROID STIMULATING HORMONE 2023-10-17 15:28:00 Viki Melendrez [facility] GC & CHLAMYDIA AMPLIFIED ASSAY 2023-10-17 15:28:00 Viki Melendrez [facility] POCT TEST 2023-10-17 14:59:00 Viki Melendrez [facility] POCT TEST 2023-09-11 15:43:00 Viki Melendrez [facility] CONSENT/REFUSAL FOR DIAGNOSI S AND TREATMENT 2023-09-11 15:08:47 Doctor Unassigned, Abiquiu [facility] ASSIGNMENT OF BENEFITS 2023-09-11 15:08:31 Doctor Unassigned, Abiquiu [facility] POCT TEST 2023-04-12 00:15:00 Suzanne Elizondo [facility] CONSENT/REFUSAL FOR DIAGNOSI S AND TREATMENT 2023-04-11 23:40:41 Doctor Unassigned, Abiquiu [facility] PAP SMEAR-LIQUID BASED-CP 2023-03-14 20:36:00 Sallie Reyna [facility] HIV 1/2 AG-AB WITH REFLEX 2022-12-29 19:39:00 Sallie Reyna [facility] POCT TEST 2022-12-12 21:08:00 Sallie Reyna [facility] POCT URINALYSIS W/O SPECIFIC GRAVITY 2022-07-27 19:19:00 Sallie Reyna [facility] POCT TEST 2022-07-14 21:18:00 Sallie Reyna [facility] CONSENT/REFUSAL FOR DIAGNOSI S AND TREATMENT 2022-07-14 20:33:51 Doctor Unassigned, Abiquiu [facility] POCT TEST 2022-06-14 18:38:00 Hailey Ware [facility] DISCLOSURE AND CONSENT MEDICAL & SURGICAL PROCEDURES - FEMALM 2021-11-30 05:01:00 Doctor Unassigned, Abiquiu [facility] POCT TEST 2021-11-30 00:00:00 Adum, Sandra Stuart [facility] HCV ANTIBODY 2021-11-02 16:34:00 Adum, Sandra Stuart [facility] Encounters Start Date/Time End Date/Time Encounter Type Admission Type Attending [facility] Care Facility Care Department Encounter ID Source 2024-10-14 00:00:00 2024-10-14 12:20:06 Telephone Juan M Nesha Weinstein [facility] 1.2.840.114 350.1.13.10 4.2.7.2.686 [id number] [facility] 2024-10-01 13:00:00 2024-10-01 13:34:15 Outpatient R NESHA MCGOWAN [facility] [id number] [facility] 2024-10-01 13:00:00 2024-10-01 13:34:15 Office Visit Juan M Nesha A [facility] 1.2.840.114 350.1.13.10 4.2.7.2.686 [id number] [facility] 2024-07-04 13:15:00 2024-07-04 16:13:48 Outpatient R RAKAN OCONNOR [facility] [id number] [facility] 2024-07-04 13:15:00 2024-07-04 16:13:48 Telemedici ne Visit OconnorRakan chang W Pgy3 1.2.840.1 [id number] 3.104.2.7 [id number] [facility] 2024-07-02 00:00:00 2024-07-02 00:00:00 Travel 1.2.840.1 [id number] 3.104.2.7 .[id number] .[id number] 1.2.840.114 350.1.13.10 4.2.7.3.698 [id number] [facility] 2024-06-20 13:15:00 2024-06-20 13:15:00 Outpatient R ARMANDO BRITO DAPHNE [facility] [id number] [facility] 2024-05-23 00:00:00 2024-05-26 12:16:07 Telephone Dangelo Levin [facility] 1.20.114 350.1.13.10 4.2.7.2.686 [id number] [facility] 2024-05-23 13:30:00 2024-05-23 14:08:21 Outpatient HANNAH ROSAS KARREN [facility] [id number] [facility] 2024-05-23 13:30:00 2024-05-23 14:08:21 Office Visit Pgy3 Hannah Torres Pgy3 [facility] 1.0.114 350.1.13.10 4.2.7.2.686 [id number] [facility] 2024-05-08 00:00:00 2024-05-09 17:24:27 Telephone Dangelo Levin [facility] 1.20.114 350.1.13.10 4.2.7.2.686 [id number] [facility] 2024-03-20 00:00:00 2024-03-20 10:59:32 Telephone Dangelo Levin [facility] 1.20.114 350.1.13.10 4.2.7.2.686 [id number] [facility] 2024-03-13 12:00:00 2024-03-13 12:15:00 Echocardiography Tech Visit Pob, Adc [facility] 1.2840.114 350.1.13.10 4.2.7.2.686 [id number] [facility] 2024-03-13 12:00:00 2024-03-13 12:00:00 Outpatient R YARON BLAS YVETTE [facility] [id number] [facility] 2024-01-10 00:00:00 2024-02-16 18:27:17 Patient Secure MsDangelo Mcdonough [facility] 1.2840.114 350.1.13.10 4.2.7.2.686 [id number] [facility] 2024-02-12 00:00:00 2024-02-13 14:35:33 Telephone Karen Lockhart [facility] 1.2840.114 350.1.13.10 4.2.7.2.686 [id number] [facility] 2024-01-02 00:00:00 2024-02-11 09:09:01 Telephone Shira [facility] 1.2840.114 350.1.13.10 4.2.7.2.686 [id number] [facility] 2024-02-01 13:15:00 2024-02-01 13:27:13 Outpatient R SALLIE REYNA [facility] [id number] [facility] 2024-02-01 13:15:00 2024-02-01 13:27:13 Echocardiography Tech Visit Lab, Ang-Rmchp Sallie Reyna [facility] RETAIL SELLING FLOOR [facility] 1.2840.114 350.1.13.10 4.2.7.2.686 [id number] [facility] 2024-01-10 00:00:00 2024-01-28 19:33:09 Telephone Kimberly Levinshua [facility] 1.2840.114 350.1.13.10 4.2.7.2.686 [id number] [facility] 2024-01-08 10:40:00 2024-01-08 11:00:00 Urgent Care Elida Ordonez Unknown, Attending [facility] 1..840.114 350.1.13.10 4.2.7.2.686 [id number] [facility] 2024-01-08 10:40:00 2024-01-08 10:40:00 Outpatient R ELIDA ORDONEZ [facility] [id number] [facility] 2024-01-01 00:00:00 2024-01-01 14:44:57 Telephone Tomer Sotelo [facility] 1..840.114 350.1.13.10 4.2.7.2.686 [id number] [facility] 2023-12-31 00:00:00 2023-12-31 14:16:35 Telephone Dangelo Levin [facility] 1.84.114 350.1.13.10 4.2.7.2.686 [id number] [facility] 2023-12-25 14:30:00 2023-12-25 15:26:10 Outpatient R MARIA ANTONIA CHRISTINE [facility] [id number] [facility] 2023-12-25 14:30:00 2023-12-25 15:26:10 Office Visit Maria Antonia Christine [facility] 1..840.114 350.1.13.10 4.2.7.2.686 [id number] [facility] 2023-12-25 08:45:00 2023-12-25 08:50:36 Echocardiography Tech Visit Lab, [facility] Hospital[facility] RETAIL SELLING FLOOR [facility] 1..114 350.1.13.10 4.2.7.2.686 [id number] [facility] 2023-12-17 14:15:00 2023-12-17 14:47:37 Outpatient R YARON BLAS [facility] [id number] [facility] 2023-12-17 14:15:00 2023-12-17 14:47:37 Office Visit Pgy2 Yaron Blas [facility] 1.114 350.1.13.10 4.2.7.2.686 [id number] [facility] 2023-12-14 09:53:43 2023-12-14 23:59:00 Outpatient R YARON BLAS [facility] [id number] [facility] 2023-12-14 09:53:43 2023-12-14 23:59:00 Hospital Encounter Yaron Blas [facility] 1..114 350.1.13.10 4.2.7.2.686 [id number] [facility] 2023-12-13 00:00:00 2023-12-13 00:00:00 Letter (Out) [facility] 1.840.114 350.1.13.10 4.2.7.2.686 [id number] [facility] 2023-12-13 00:00:00 2023-12-13 00:00:00 Letter (Out) [facility] 1.2840.114 350.1.13.10 4.2.7.2.686 [id number] [facility] 2023-12-12 00:00:00 2023-12-12 00:00:00 Telephone Tomer Sotelo [facility] 1.2.840.114 350.1.13.10 4.2.7.2.686 [id number] [facility] 2023-12-04 11:00:00 2023-12-04 12:06:03 Outpatient R TOMER SOTELO HOWARD [facility] [id number] [facility] 2023-12-04 11:00:00 2023-12-04 12:06:03 Office Visit Tomer Sotelo Ben [facility] 1.114 350.1.13.10 4.2.7.2.686 [id number] [facility] 2023-11-30 13:30:00 2023-11-30 14:30:48 [facility] [id number] [facility] 2023-11-30 13:30:00 2023-11-30 14:30:48 Office Visit Chani Zapien [facility] 1.114 350.1.13.10 4.2.7.2.686 [id number] [facility] 2023-11-19 13:30:00 2023-11-19 15:26:23 Outpatient R YARON BLAS [facility] [id number] [facility] 2023-11-19 13:30:00 2023-11-19 15:26:23 Office Visit Pgy3 Yaron Blas [facility] 1.114 350.1.13.10 4.2.7.2.686 [id number] [facility] 2023-11-15 11:30:00 2023-11-15 11:45:00 Echocardiography Tech Visit Lab, Nesha Bray [facility] 1.114 350.1.13.10 4.2.7.2.686 [id number] [facility] 2023-11-15 10:30:00 2023-11-15 11:26:02 Outpatient R NESHA MCGOWAN [facility] [id number] [facility] 2023-11-15 10:30:00 2023-11-15 11:26:02 Office Visit Nesha Mcgowan [facility] 1.114 350.1.13.10 4.2.7.2.686 [id number] [facility] 2023-11-07 10:59:56 2023-11-07 23:59:00 Outpatient R YARON BLAS [facility] [id number] [facility] 2023-11-07 10:59:56 2023-11-07 23:59:00 Hospital Encounter Yaron Blas [facility] 1..114 350.1.13.10 4.2.7.2.686 [id number] [facility] 2023-11-07 00:00:00 2023-11-07 00:00:00 Telephone Karen Lockhart [facility] 1..114 350.1.13.10 4.2.7.2.686 [id number] [facility] 2023-10-31 00:00:00 2023-10-31 00:00:00 Telephone Brodie Sal [facility] 1..114 350.1.13.10 4.2.7.2.686 [id number] [facility] 2023-10-26 15:00:00 2023-10-26 15:15:00 Echocardiography Tech Visit Pohonorio, [facility] 1..114 350.1.13.10 4.2.7.2.686 [id number] [facility] 2023-10-26 15:00:00 2023-10-26 15:00:00 Outpatient R RASHI MORAN [facility] [id number] [facility] 2023-10-25 15:42:55 2023-10-25 23:59:00 Outpatient R YARON BLAS [facility] [id number] [facility] 2023-10-25 15:42:55 2023-10-25 23:59:00 Hospital Encounter Yaron Blas [facility] 1..840.114 350.1.13.10 4.2.7.2.686 [id number] [facility] 2023-10-22 13:15:00 2023-10-22 14:09:03 Outpatient R YARON BLAS [facility] [id number] [facility] 2023-10-22 13:15:00 2023-10-22 14:09:03 Office Visit Pgy3 Yaron Blas [facility] 1..840.114 350.1.13.10 4.2.7.2.686 [id number] [facility] 2023-10-17 08:45:00 2023-10-17 09:26:51 Outpatient VIKI OTTO [facility] [id number] [facility] 2023-10-17 08:45:00 2023-10-17 09:26:51 Office Visit Viki Melendrez [facility] RETAIL SELLING FLOOR [facility] 1..840.114 350.1.13.10 4.2.7.2.686 [id number] [facility] 2023-10-17 08:45:00 2023-10-17 08:45:00 Outpatient VIKI OTTO [facility] [id number] [facility] 2023-10-09 11:40:00 2023-10-09 12:03:06 Outpatient R ELIDA ORDONEZ [facility] [id number] [facility] 2023-10-09 11:40:00 2023-10-09 12:00:00 Urgent Care Elida Ordonez Unknown, Attending [facility] 1.840.114 350.1.13.10 4.2.7.2.686 [id number] [facility] 2023-09-11 10:00:00 2023-09-11 10:00:00 Nurse Visit Visit, Ang-Rmchp Nurse Sallie Reyna [facility] RETAIL SELLING FLOOR [facility] 1.840.114 350.1.13.10 4.2.7.2.686 [id number] [facility] 2023-09-11 09:45:00 2023-09-11 09:45:00 Outpatient R VIKI MELENDREZ [facility] [id number] [facility] 2023-09-11 00:00:00 2023-09-11 00:00:00 Orders Only Doctor Unassigned, Abiquiu [facility] 1.840.114 350.1.13.10 4.2.7.2.686 [id number] [facility] 2023-04-11 18:48:00 2023-04-11 20:38:00 Emergency X SUZANNE ELIZONDO [facility] ERT [id number] [facility] 2023-04-11 18:48:00 2023-04-11 20:38:00 Emergency Suzanne Elizondo [facility] 1.840.114 350.1.13.10 4.2.7.2.686 [id number] [facility] 2023-04-11 00:00:00 2023-04-11 00:00:00 Orders Only Doctor Unassigned, Abiquiu [facility] 1.840.114 350.1.13.10 4.2.7.2.686 [id number] [facility] 2023-04-03 15:30:00 2023-04-03 16:22:30 Outpatient R SALLIE REYNA HIAYANNA [facility] [id number] [facility] 2023-04-03 15:30:00 2023-04-03 16:22:30 Office Visit Sallie Reyna [facility] RETAIL SELLING FLOOR [facility] & CHILD [facility] 1.2840.114 350.1.13.10 4.2.7.2.686 [id number] 107 [id number] [facility] 2023-03-26 00:00:00 2023-03-26 00:00:00 Telephone Sallie Reyna [facility] RETAIL SELLING FLOOR [facility] & CHILD [facility] 1.840.114 350.1.13.10 4.2.7.2.686 [id number] [facility] 2023-03-14 13:30:00 2023-03-14 14:11:17 Outpatient R SALLIE REYNA [facility] [id number] [facility] 2023-03-14 13:30:00 2023-03-14 14:11:17 Office Visit Sallie Reyna [facility] RETAIL SELLING FLOOR [facility] & CHILD [facility] 1.840.114 350.1.13.10 4.2.7.2.686 [id number] 107 [id number] [facility] 2023-01-31 00:00:00 2023-01-31 00:00:00 Telephone Sallie Reyna [facility] RETAIL SELLING FLOOR [facility] 1.2840.114 350.1.13.10 4.2.7.2.686 [id number] 107 [id number] [facility] 2023-01-18 14:45:00 2023-01-18 14:45:00 Outpatient R ALIN SALLIE [facility] [id number] [facility] 2023-01-18 14:45:00 2023-01-18 14:45:00 Outpatient R SALLIE REYNA [facility] [id number] [facility] 2023-01-02 00:00:00 2023-01-02 00:00:00 Telephone Sallie Reyna [facility] RETAIL SELLING FLOOR [facility] & CHILD [facility] 1.2840.114 350.1.13.10 4.2.7.2.686 [id number] [facility] 2022-12-29 13:30:00 2022-12-29 14:38:20 Outpatient R ALIN SALLIE [facility] [id number] [facility] 2022-12-29 13:30:00 2022-12-29 14:38:20 Office Visit Sallie Reyna [facility] RETAIL SELLING FLOOR [facility] CHILD [facility] 1.0.114 350.1.13.10 4.2.7.2.686 [id number] 107 [id number] [facility] 2022-12-27 00:00:00 2022-12-27 00:00:00 Telephone Maria TeresamaryagathaSallie [place] [facility] RETAIL SELLING FLOOR [facility] 1.840.114 350.1.13.10 4.2.7.2.686 [id number] 107 [id number] [facility] 2022-12-12 10:45:00 2022-12-12 11:08:14 Outpatient R ALIN SALLIE [facility] [id number] [facility] 2022-12-12 10:45:00 2022-12-12 11:08:14 Office Visit Sallie Reyna [facility] RETAIL SELLING FLOOR [facility] CHILD [facility] 1.840.114 350.1.13.10 4.2.7.2.686 [id number] 107 [id number] [facility] 2022-12-01 09:15:00 2022-12-01 09:15:00 Outpatient R SALLIE REYNA [facility] [id number] [facility] 2022-11-03 13:30:00 2022-11-03 13:30:00 Outpatient R AIRAMCITLALY SANDRA [facility] [id number] [facility] 2022-09-14 13:00:00 2022-09-14 13:00:00 Outpatient R [facility] [id number] [facility] 2022-09-07 10:00:00 2022-09-07 11:01:52 Outpatient R SALLIE REYNA [facility] [id number] [facility] 2022-09-07 10:00:00 2022-09-07 11:01:52 Office Visit Sallie Reyna [facility] RETAIL SELLING FLOOR [facility]ERNAL & [facility] .2.840.114 350.1.13.10 4.2.7.2.686 [id number] [facility] 2022-09-07 10:30:00 2022-09-07 10:30:00 Outpatient R VIKI MELENDREZ [facility] [id number] [facility] 2022-09-07 10:00:00 2022-09-07 10:00:00 Outpatient R SALLIE REYNA [facility] [id number] [facility] 2022-07-31 00:00:00 2022-07-31 00:00:00 Telephone Sallie Reyna [facility] RETAIL SELLING FLOOR [facility] & CHILD [facility] .2.840.114 350.1.13.10 4.2.7.2.686 [id number] 107 [id number] [facility] 2022-07-27 12:45:00 2022-07-27 13:40:14 Outpatient R SALLIE REYNA [facility] [id number] [facility] 2022-07-27 12:45:00 2022-07-27 13:40:14 Office Visit Sallie Reyna [facility] RETAIL SELLING FLOOR [facility] & CHILD [facility] 1..840.114 350.1.13.10 4.2.7.2.686 [id number] [facility] 2022-07-27 12:45:00 2022-07-27 12:45:00 Outpatient R SALLIE REYNA [facility] [id number] [facility] 2022-07-14 14:15:00 2022-07-14 15:38:37 Outpatient R SALLIE REYNA [facility] [id number] [facility] 2022-07-14 14:15:00 2022-07-14 15:38:37 Office Visit Sallie Reyna [facility] RETAIL SELLING FLOOR [facility] CHILD [facility] 1..840.114 350.1.13.10 4.2.7.2.686 [id number] 107 [id number] [facility] 2022-07-14 00:00:00 2022-07-14 00:00:00 Orders Only Doctor Unassigned, Abiquiu [facility] 1.2.840.114 350.1.13.10 4.2.7.2.686 [id number] [facility] 2022-06-14 13:30:00 2022-06-14 14:41:50 Outpatient R HAILEY WARE [facility] [id number] [facility] 2022-06-14 13:30:00 2022-06-14 14:41:50 Office Visit Hailey Ware [facility] RETAIL SELLING FLOOR [facility] & CHILD [facility] 1.2.840.114 350.1.13.10 4.2.7.2.686 [id number] [facility] 2022-06-14 10:30:00 2022-06-14 10:30:00 Outpatient R NORY TOLENTINO [facility] [id number] [facility] 2022-06-10 10:45:00 2022-06-10 10:45:00 Outpatient R [facility] [id number] [facility] 2022-06-07 00:00:00 2022-06-07 00:00:00 Telephone AdSandra benoit [facility] 1..840.114 350.1.13.10 4.2.7.2.686 [id number] [facility] 2022-06-06 13:30:00 2022-06-06 13:30:00 Outpatient R LEONARDO SANDRA [facility] [id number] [facility] 2022-05-31 13:30:00 2022-05-31 13:30:00 Outpatient R LEONARDO SANDRA [facility] [id number] [facility] 2022-05-29 00:00:00 2022-05-29 00:00:00 Letter (Out) AiramSandra benoit [facility] 1..840.114 350.1.13.10 4.2.7.2.686 [id number] [facility] 2022-04-21 13:00:00 2022-04-21 13:00:00 Outpatient R NESHA MCGOWAN [facility] [id number] [facility] 2022-04-10 11:00:00 2022-04-10 11:00:00 Outpatient R FELICIANO ROBISON CHERYAL [facility] [id number] [facility] 2022-04-07 00:00:00 2022-04-07 00:00:00 Telephone AdSandra benoit [facility] 1..840.114 350.1.13.10 4.2.7.2.686 [id number] 134 [id number] [facility] 2022-01-18 00:00:00 2022-01-18 00:00:00 Telephone Adum, Sandra Stuart [facility] 1.2840.114 350.1.13.10 4.2.7.2.686 [id number] [facility] 2022-01-18 00:00:00 2022-01-18 00:00:00 Telephone Perla Mcgowane Js [facility] 1..114 350.1.13.10 4.2.7.2.686 [id number] [facility] 2022-01-11 10:30:00 2022-01-11 10:30:00 Outpatient R ADCITLALY, [facility] [id number] [facility] 2021-12-20 00:00:00 2021-12-20 00:00:00 Telephone Adum, Sandra Stuart [facility] 1.84.114 350.1.13.10 4.2.7.2.686 [id number] [facility] 2021-11-30 14:00:00 2021-11-30 14:15:00 Echocardiography Tech Visit Lab, Ang - Db [facility] 1.84.114 350.1.13.10 4.2.7.2.686 [id number] [facility] 2021-11-30 10:30:00 2021-11-30 12:03:56 Outpatient R ADUM SANDRA [facility] [id number] [facility] 2021-11-30 10:30:00 2021-11-30 12:03:56 Office Visit Adum, Sandra Stuart [facility] 1.2840.114 350.1.13.10 4.2.7.2.686 [id number] [facility] 2021-11-30 00:00:00 2021-11-30 00:00:00 Orders Only Doctor Unassigned, Abiquiu [facility] 1.2840.114 350.1.13.10 4.2.7.2.686 [id number] [facility] 2021-11-25 10:30:00 2021-11-25 10:30:00 Outpatient SANDRA PINEDA [facility] [id number] [facility] 2021-11-18 00:00:00 2021-11-18 00:00:00 Telephone Nesha Mcgowan [facility] 1.2.840.114 350.1.13.10 4.2.7.2.686 [id number] [facility] 2021-11-17 00:00:00 2021-11-17 00:00:00 Patient Secure Msg Doctor Unassigned, Abiquiu [facility] 1.2840.114 350.1.13.10 4.2.7.2.686 [id number] [facility] 2021-11-17 00:00:00 2021-11-17 00:00:00 Telephone Nesha Mcgwoan [facility] 1.2840.114 350.1.13.10 4.2.7.2.686 [id number] [facility] 2021-11-10 00:00:00 2021-11-10 00:00:00 Patient Secure Msg Doctor Unassigned, Abiquiu [facility] 1.284.114 350.1.13.10 4.2.7.2.686 [id number] [facility] 2021-11-04 08:30:00 2021-11-04 08:45:00 Echocardiography Tech Visit Lab, Ang - Nesha Gagnon [facility] 1.2.840.114 350.1.13.10 4.2.7.2.686 [id number] [facility] 2021-11-04 08:30:00 2021-11-04 08:30:00 Outpatient R JUAN M, NESHA [facility] [id number] [facility] 2021-11-04 08:30:00 2021-11-04 08:30:00 Outpatient R JUAN M, NESHA [facility] [id number] [facility] 2021-11-04 00:00:00 2021-11-04 00:00:00 Case Management AdSandra benoit [facility] 1.2.840.114 350.1.13.10 4.2.7.2.686 [id number] [facility] 2021-11-03 12:30:00 2021-11-03 13:20:28 Office Visit Nesha Mcgowan [facility] 1.2.840.114 350.1.13.10 4.2.7.2.686 [id number] [facility] 2021-11-03 12:30:00 2021-11-03 13:20:28 Outpatient R NESHA MCGOWAN [facility] [id number] [facility] 2021-11-03 12:30:00 2021-11-03 12:30:00 Outpatient R NESHA MCGOWAN [facility] [id number] [facility] 2021-11-03 12:30:00 2021-11-03 12:30:00 Outpatient R JUAN MNESHA [facility] [id number] [facility] 2021-11-02 11:45:00 2021-11-02 12:00:00 Echocardiography Tech Visit 2, Adc Lab AdVivian benoitian Narciso [facility] 1.2.840.114 350.1.13.10 4.2.7.2.686 [id number] [facility] 2021-11-02 10:00:00 2021-11-02 11:18:03 Outpatient R AIRAMCITLALY SANDRA [facility] [id number] [facility] 2021-11-02 10:00:00 2021-11-02 11:18:03 Initial Visit Sandra Wang [facility] 1.840.114 350.1.13.10 4.2.7.2.686 [id number] [facility] 2021-11-02 10:00:00 2021-11-02 11:18:03 Outpatient R LEONARDO [facility] [id number] [facility] 2021-11-02 00:00:00 2021-11-02 00:00:00 Orders Only Doctor Unassigned, Abiquiu [facility] 1.840.114 350.1.13.10 4.2.7.2.686 [id number] [facility] 2021-05-17 15:30:00 2021-05-17 15:30:00 Outpatient Татьяна ALEGRIACITLALYSANDRA [facility] [id number] [facility] 2021-05-09 15:15:00 2021-05-09 15:15:00 Outpatient R MARAI TERESASISALLIE SCOTT [facility] [id number] [facility] 2021-04-06 13:03:25 2021-04-06 13:32:33 Nurse Visit Visit, Ang-Rmchp Nurse Nory Tolentino [facility] RETAIL SELLING FLOOR [facility] 1.840.114 350.1.13.10 4.2.7.2.686 [id number] [facility] 2021-04-06 13:30:00 2021-04-06 13:30:00 Outpatient R NORY TOLENTINO [facility] [id number] [facility] 2021-04-06 00:00:00 2021-04-06 00:00:00 Orders Only Doctor Unassigned, Abiquiu [facility] 1.2114 350.1.13.10 4.2.7.2.686 [id number] [facility] 2020-11-02 00:00:00 2020-11-02 00:00:00 Patient Outreach Jan Sunilолег Natarajan [facility] 1.84.114 350.1.13.10 4.2.7.2.686 [id number] [facility] 2020-09-09 15:30:00 2020-09-09 15:30:00 Outpatient R SANDRA WANG [facility] [id number] [facility] 2020-09-06 15:15:00 2020-09-06 15:15:00 Outpatient R AKINSALLIE FERRELL [facility] [id number] [facility] 2020-08-20 09:41:57 2020-08-20 10:11:57 Office Visit Sandra Wang [facility] 1.84.114 350.1.13.10 4.2.7.2.686 [id number] [facility] 2020-08-20 10:00:00 2020-08-20 10:00:00 Outpatient R SANDRA WANG [facility] [id number] [facility] 2020-08-20 00:00:00 2020-08-20 00:00:00 Orders Only Doctor Unassigned, Abiquiu [facility] 1.284.114 350.1.13.10 4.2.7.2.686 [id number] [facility] 2020-08-04 15:00:00 2020-08-04 15:00:00 Outpatient R AKINSIPE, SALLIE [facility] [id number] [facility] 2020-07-26 15:15:00 2020-07-26 15:15:00 Outpatient R SALLIE REYNA [facility] [id number] [facility] 2020-06-07 15:56:14 2020-06-07 16:43:15 Office Visit Sallie Reyna [facility] 1..840.114 350.1.13.10 4.2.7.2.686 [id number] [facility] 2020-06-07 16:00:00 2020-06-07 16:00:00 Outpatient R MARIA TERESAMARYAGATHASALLIE [facility] [id number] [facility] 2020-06-02 15:15:00 2020-06-02 15:15:00 Outpatient Татьяна MORELMARYAGATHASALLIE [facility] [id number] [facility] 2020-05-28 00:00:00 2020-05-28 00:00:00 Telephone Sallie Reyna [facility] 1..840.114 350.1.13.10 4.2.7.2.686 [id number] [facility] 2020-05-10 12:48:58 2020-05-10 13:30:27 Nurse Visit Visit, Alfred-Rmchp Nurse Sallie Reyna [facility] 1..840.114 350.1.13.10 4.2.7.2.686 [id number] [facility] 2020-05-10 13:00:00 2020-05-10 13:00:00 Outpatient Татьяна MORELMARYAGATHASALLIE [facility] [id number] [facility] 2020-05-10 00:00:00 2020-05-10 00:00:00 Telephone Zac Elizondo [facility] 1.2.840.114 350.1.13.10 4.2.7.2.686 [id number] 107 [id number] [facility] 2020-05-07 00:00:00 2020-05-07 00:00:00 Telephone Sallie Reyna [facility] 1.2.840.114 350.1.13.10 4.2.7.2.686 [id number] 107 [id number] [facility] 2020-05-06 15:27:30 2020-05-06 16:49:53 Office Visit Sallie Reyna [facility] 1.2.840.114 350.1.13.10 4.2.7.2.686 [id number] [facility] 2020-05-06 15:45:00 2020-05-06 15:45:00 Outpatient R SALLIE REYNA [facility] [id number] [facility] 2020-05-05 00:00:00 2020-05-05 00:00:00 Telephone Zac Elizondo [facility] 1.2.840.114 350.1.13.10 4.2.7.2.686 [id number] [facility] 2020-03-16 10:30:00 2020-03-16 10:30:00 Outpatient NORY LEIGH [facility] [id number] [facility] 2020-03-08 00:00:00 2020-03-08 00:00:00 Telephone Zac Elizondo [facility] 1.2.840.114 350.1.13.10 4.2.7.2.686 [id number] 107 [id number] [facility] 2019-12-24 00:00:00 2019-12-24 00:00:00 Telephone Nory Tolentino [facility] 1.2.840.114 350.1.13.10 4.2.7.2.686 [id number] 107 [id number] [facility] 2019-12-17 14:15:00 2019-12-17 14:15:00 Office Visit Nory Tolentino [facility] RETAIL SELLING FLOOR [facility] & CHILD [facility] 1.2.840.114 350.1.13.10 4.2.7.2.686 [id number] [facility] 2019-12-17 13:14:44 2019-12-17 13:44:44 Initial Visit Nory Tolentino [facility] RETAIL SELLING FLOOR LEADER [facility] CHILD [facility] 1.2.840.114 350.1.13.10 4.2.7.2.686 [id number] [facility] 2019-12-17 13:15:00 2019-12-17 13:15:00 Outpatient R NORY TOLENTINO [facility] [id number] [facility] 2019-12-17 13:15:00 2019-12-17 13:15:00 Outpatient R NORY TOLENTINO [facility] [id number] [facility] 2019-12-17 00:00:00 2019-12-17 00:00:00 Telephone Nory Tolentino [facility] RETAIL SELLING FLOOR [facility]ER [facility] & CHILD [facility] 1.2.840.114 350.1.13.10 4.2.7.2.686 [id number] [facility] 2019-12-10 08:00:00 2019-12-10 08:00:00 Outpatient R SALLIE REYNA [facility] [id number] [facility] 2019-11-27 13:00:00 2019-11-27 13:00:00 Outpatient GOPAL CARVALHO [facility] [id number] [facility] 2019-11-24 00:00:00 2019-11-24 00:00:00 Telephone Kenneth Elizondoily [facility] 1.2.840.114 350.1.13.10 4.2.7.2.686 [id number] [facility] 2019-10-31 13:00:00 2019-10-31 13:00:00 Outpatient R MIKHAILKENNETHZAC [facility] [id number] [facility] 2019-10-10 13:47:42 2019-10-10 14:18:33 Office Visit MikhailZac [place] [facility] RETAIL SELLING FLOOR [facility] & [facility]ILD [facility] 1..840.114 350.1.13.10 4.2.7.2.686 [id number] [facility] 2019-10-10 13:15:00 2019-10-10 13:15:00 Outpatient R MIKHAILKENNETHZAC [facility] [id number] [facility] 2019-09-25 16:33:30 2019-09-25 17:23:34 Office Visit Hawley Shu [facility] Building 1..840.114 350.1.13.10 4.2.7.2.686 [id number] [facility] 2019-09-22 00:00:00 2019-09-22 00:00:00 Telephone Gopal Tolbert [facility] 1.2.840.114 350.1.13.10 4.2.7.2.686 [id number] [facility] 2019 00:00:00 2019 00:00:00 Telephone Rashi Baker [facility] 1.2.840.114 350.1.13.10 4.2.7.2.686 [id number] [facility] 2019-09-13 00:00:00 2019-09-13 00:00:00 RefAmber Phillips [facility] 1.2.840.114 350.1.13.10 4.2.7.2.686 [id number] [facility] 2019-09-02 12:57:31 2019-09-02 13:12:31 Echocardiography Tech Visit Pob, [facility] Main Amber Farnsworth [facility] 1.2.840.114 350.1.13.10 4.2.7.2.686 [id number] [facility] 2019-09-02 00:00:00 2019-09-02 00:00:00 Orders Only Doctor Unassigned, Abiquiu [facility] 1.2.840.114 350.1.13.10 4.2.7.2.686 [id number] [facility] 2019-04-24 10:08:46 2019-04-24 10:30:57 Nurse Visit Nurse, [facility] Amber Farnsworth [facility] 1.2.840.114 350.1.13.10 4.2.7.2.686 [id number] [facility] 2019-04-15 09:05:01 2019-04-15 23:59:00 Hospital Encounter Rashi Baker [facility] 1.2.840.114 350.1.13.10 4.2.7.2.686 [id number] [facility] 2019-04-15 09:05:01 2019-04-15 23:59:00 Outpatient R RASHI BAKER [facility] [id number] [facility] 2019-04-15 09:05:18 2019-04-15 09:20:18 Echocardiography Tech Visit 1, [facility] Shenaalmas [facility] 1.2.840.114 350.1.13.10 4.2.7.2.686 [id number] [facility] 2019-04-15 00:00:00 2019-04-15 00:00:00 Telephone Rashi Baker [facility] 1.2.840.114 350.1.13.10 4.2.7.2.686 [id number] [facility] 2019-04-03 14:06:14 2019-04-03 14:32:05 Office Visit Rashi Baker [facility] 1.2.840.114 350.1.13.10 4.2.7.2.686 [id number] [facility] 2019-04-01 00:00:00 2019-04-01 00:00:00 Refill Doctor Unassigned, Abiquiu [facility] 1.2.840.114 350.1.13.10 4.2.7.2.686 [id number] [facility] 2019-03-20 16:15:08 2019-03-20 16:30:08 Echocardiography Tech Visit 1, [facility] 1.2.840.114 350.1.13.10 4.2.7.2.686 [id number] [facility] 2019-03-20 14:52:09 2019-03-20 15:58:45 Office Visit Rashi Baker [facility] 1.2.840.114 350.1.13.10 4.2.7.2.686 [id number] 134 [id number] [facility] 2019-03-20 00:00:00 2019-03-20 00:00:00 Orders Only Doctor Unassigned, Abiquiu [facility] 1.2.840.114 350.1.13.10 4.2.7.2.686 [id number] [facility] Results Test Description Test Time Test Comments Results Result Co mments Source [facility] Urinalysis W Specific [id number] 19:22:00* Test Item Value Reference Range Interpretation [...] U APPEAR (test code = 3267) hazy [facility] [id number] 18:40:00* Test Item Value Reference Range Interpretation Comme nts POCT PREG (test code = 1605) Negative On board controls acceptable with C Line (test code = 3574) Yes POCT PREG LOT # (test code = 3575) POCT PREG TEST DATE ( test code = 3576) Lab Interpretation (test cod e = 19218-6) Normal [facility] Molecular [id number] 16:28:03* Test Item Value Reference Range Interpretation Comme nts POCT Molecular FluA (test co de = 64704-6) Negative Negative POCT Molecular FluB (test co de = 38653-2) Negative Negative Lab Interpretation (test cod e = 36152-0) Normal [facility] [id number] 21:38:50EXAM: FL HYSTEROSALPINGOGRAM HISTORY: 23 years-old; Female; [...] and subsequently pools intothe peritoneal cavity bilaterally. [facility] [id number] 16:18:00* Test Item Value Reference Range Interpretation Comme nts POCT PREG (test code = 1605) Negative On board controls acceptable with C Line (test code = 3574) Yes POCT PREG LOT # (test code = 3575) 175060 POCT PREG TEST DATE ( test code = 3576) [id number] [facility] [id number] 16:18:00* Test Item Value Reference Range Interpretation Comme nts POCT PREG (test code = 1605) Negative On board controls acceptable with C Line (test code = 3574) Yes POCT PREG LOT # (test code = 3575) 512045 POCT PREG TEST DATE ( test code = 3576) [id number] [facility] P[facility] COMPLETE WITH [id number] 21:29:09EXAM: US PELVIS COMPLETE WITH TRANSVAGINAL HISTORY: 23 years -old Female with infertility work up .LMP = 06/15/2023 TECHNIQUE: Transabdominal and transvaginal ultrasound imaging of the pelviswas performed including color Doppler evaluation. Framing Inspector imageswere obtained for the record. COMPARIS ON: [...] appearance: Multiple small follicles. Cul-de-sac: No free fluid.[facility]2024-[facility]-07 06:55:06* Test Item Value Reference Range Interpretation Comme nts PROLACTIN (test code = 8792197361) 6.6 ng/mL 3.3-26.7 Lab Interpretation (test cod e = 53382-0) Normal [facility]2024-03-07 06:55:06* Test Item Value Reference Range Interpretation Comme nts PROLACTIN (test code = 1774493784) 6.6 ng/mL 3.3-26.7 Lab Interpretation (test cod e = 35563-2) Normal [facility] [id number] 06:19:59 * Test Item Value Reference Range Interpretation Comme nts TSH (test code = 8541056276) 1.28 0.45-4.70 Biotin has been reported to cause a negative bias, interpret results relative to patient's use of biotin. Lab Interpretation (test code = 83332-3) Normal [facility] Vicgivd7984-07-10 06:19:59 * Test Item Value Reference Range Interpretation Comme nts TSH (test code = 5193092349) 1.28 0.45-4.70 Biotin has been reported to cause a negative bias, interpret results relative to patient's use of biotin. Lab Interpretation (test code = 90200-8) Normal [facility] [id number] 14:59:00* Test Item Value Reference Range Interpretation Comme nts POCT PREG (test code = 1605) Negative On board controls acceptable with C Line (test code = 3574) Yes POCT PREG LOT # (test code = 3575) POCT PREG TEST DATE ( test code = 3576) [facility] [id number] 14:59:00* Test Item Value Reference Range Interpretation Comme nts POCT PREG (test code = 1605) Negative On board controls acceptable with C Line (test code = 3574) Yes POCT PREG LOT # (test code = 3575) POCT PREG TEST DATE ( test code = 3576) [facility] [id number] 15:43:00* Test Item Value Reference Range Interpretation Comme nts POCT PREG (test code = 1605) Negative On board controls acceptable with C Line (test code = 3574) Yes POCT PREG LOT # (test code = 3575) POCT PREG TEST DATE ( test code = 3576) [facility] [id number] 00:15:00* Test Item Value Reference Range Interpretation Comme nts POCT PREG (test code = 1605) Negative On board controls acceptable with C Line (test code = 3574) Yes POCT PREG LOT # (test code = 3575) 800516 POCT PREG TEST DATE ( test code = 3576) 08/15/2024 Lab Interpretation (test cod e = 90072-8) Normal [facility] [id number] 21:08:00* Test Item Value Reference Range Interpretation Comme nts POCT PREG (test code = 1605) Negative On board controls acceptable with C Line (test code = 3574) Yes POCT PREG LOT # (test code = 3575) POCT PREG TEST DATE ( test code = 3576) [facility] [id number] 21:08:00* Test Item Value Reference Range Interpretation Comme nts POCT PREG (test code = 1605) Negative On board controls acceptable with C Line (test code = 3574) Yes POCT PREG LOT # (test code = 3575) POCT PREG TEST DATE ( test code = 3576) [facility] URINALYSIS W/O SPECIFIC [id number] 19:19:00* Test Item Value Reference Range Interpretation [...] = 3257) large Negative - Negati ve [facility] URINALYSIS W/O SPECIFIC [id number] 19:19:00* Test Item Value Reference Range Interpretation [...] = 3257) large Negative - Negati ve [facility] [id number] 21:18:00* Test Item Value Reference Range Interpretation Comme nts POCT PREG (test code = 1605) Negative On board controls acceptable with C Line (test code = 3574) Yes POCT PREG LOT # (test code = 3575) POCT PREG TEST DATE ( test code = 3576) [facility] [id number] 21:18:00* Test Item Value Reference Range Interpretation Comme nts POCT PREG (test code = 1605) Negative On board controls acceptable with C Line (test code = 3574) Yes POCT PREG LOT # (test code = 3575) POCT PREG TEST DATE ( test code = 3576) [facility] [id number] 18:40:00* Test Item Value Reference Range Interpretation Comme nts POCT PREG (test code = 1605) Negative On board controls acceptable with C Line (test code = 3574) Yes POCT PREG LOT # (test code = 3575) POCT PREG TEST DATE ( test code = 3576) [facility] [id number] 18:40:00* Test Item Value Reference Range Interpretation Comme nts POCT PREG (test code = 1605) Negative On board controls acceptable with C Line (test code = 3574) Yes POCT PREG LOT # (test code = 3575) POCT PREG TEST DATE ( test code = 3576) [facility] [id number] 16:42:00* Test Item Value Reference Range Interpretation Comme nts POCT PREG (test code = 1605) Negative On board controls acceptable with C Line (test code = 3574) Yes POCT PREG LOT # (test code = 3575) POCT PREG TEST DATE ( test code = 3576) [facility] [id number] 16:42:00* Test Item Value Reference Range Interpretation Comme nts POCT PREG (test code = 1605) Negative On board controls acceptable with C Line (test code = 3574) Yes POCT PREG LOT # (test code = 3575) POCT PREG TEST DATE ( test code = 3576) [facility] Notes Date/Time Note Provider Source 2024-10-14 12:18:47 Received radiology report from [facility], scan into pt chart and placed in provider box. MAKER Meredith Chinchilla [facility] 2024-05-26 12:15:53 Pt has been scheduled Huma Rutherford [facility] 2024-05-23 15:24:25 ----- Message from Dangelo Levin [...] to schedule telehealth appointment. Hannah Stevens RN [facility] 2024-05-09 17:24:07 Pt is scheduled, LVM Sherrie Tejada 05/09/2024 5:24 PM Sherrie Tejada [facility] 2024-05-08 13:11:06 Sienna Rodriguez is a 23 year old female Patient requesting apt with pgy2/ dangelo levin for a follow up on infertility and proceed into next steps. Please call [phone] (home) Kalyn Castro [facility] 2024-03-21 08:34:29 Addended by: DANGELO LEVIN on: 03/21/2024 08:34 AM Modules accepted: Orders [facility] 2024-03-20 10:59:12 Routed to to advise on 03/13/24 lab results Marely Ambrosio RN [facility] 2024-03-20 10:00:48 Sienna Rodriguez is a 23 year old female Patient called for results review from labs taken 03/13/24 Please contact pt at [phone] (home) Em Bowman [facility] 2024-03-13 12:00:00 Images from the original note [...] DK BLUE (S) ACD Blood Culture NIPT/NTD [facility] 2024-02-13 13:30:[address] Levin to get in contact with the patient. Ben Gordon MD Obstetrics and Gynecology, PGY4 1:30 PM OG-OBSTETRICS & GYNECOLOGY [facility] 2024-02-12 16:27:41 Sienna Rodriguez is a 23 year old female calling back to verify medication of Letrozole will sent to pharmacy today. Please contact patient at [phone] (home) Tegan Craven [facility] 2024-02-12 13:56:03 Spoke with pt states she started her menses on 02/09/24 and would like to confirm plan of care. Progesterone Level on 02/01/24 was 0.77. States this will be the 3rd round of Letrazole for her. Confirmed that she will increase Letrazole to 7.5mg daily. Blood draw should be scheduled on 03/01/24. Pt states she will call [facility] lab to schedule this appt. Will route [...] 5:42 PM on 01/13/2024. Marely Ambrosio RN [facility] 2024-02-12 10:31:34 Sienna Rodriguez is a 23 year old female Patient states she started her period on 02/09/24, and asking if she should still take letrozole Please contact pt at [phone] (home) Em Bowman [facility] 2024-01-17 08:06:48 Please review encounter and close Tegan Craven [facility] 2024-01-10 13:00:08 Sienna Rodriguez is a 23 year old female requesting to talk with an nurse, questions on medroxyPROGESTERone (PROVERA) started spotting while taking RX and requesting direction on taking medication letrozole. Stated has started cycle not due to start cycle until days after talking medroxyPROGESTERone . Jalyn Noguera [facility] 2024-01-10 08:45:36 Copied from [facility] #[id number]. Topic: Clinical - Medical Advice >> January 10, 2024 8:42 AM Patient Gold Charmer wrote: Sienna Rodriguez is a 23 year old female requesting to talk with an nurse Q's on medroxyPROGESTERone (PROVERA) started spotting while taking meds and requesting direction on taking meds. Please contact patient at [phone] (home) [facility] 2024-01-02 09:16:37 Copied from [facility] #[id number]. Topic: Clinical - Medical Advice >> January 02, 2024 9:15 AM Patient Gold Charmer wrote: Sienna Rodriguez is a 23 year old female Patient requesting indications on how to take letrozole 5 mg tablets and when to start. Please call [phone] (home) Kalyn Castro [facility] 2024-01-01 14:44:33 Images from the original note were not included. Per note on medication, PA has been approved. Arlyn Newman LVN [facility] 2024-01-01 12:25:04 Images from the original note were not included. Prior Auth Needed Em Prather [facility] 2023-12-31 14:05:51 Telephone Note 12/31/23 1400 Called [...] below. Call clinic with any questions. Daljit eLvin MD Ovulation Induction Protocol Start medroxyprogesterone 10 [...] 2, labs are drawn on day 20) [facility] 2023-12-12 15:25:54 PA submitted for [employer] Aeryal Neuro[employer] (Castillo: [id number]) Arlyn Newman LVN [facility] 2023-12-12 10:08:31 Images from the original note were not included. Received PA Castillo: [id number] Placed in Providers box. Mae Painting [facility] 2023-11-15 11:30:00 Images from the original note [...] DK BLUE (S) ACD Blood Culture NIPT/NTD [facility] 2023-11-07 11:43:38 Pt walked in and requests that you please resubmit orders for her hsg. [facility] could not locate her cervix. Rosanne Zamudio [facility] 2023-11-07 11:29:26 Pt to keep upcoming appt as scheduled with residents to discuss further. Marely Ambrosio RN [facility] 2023-11-01 09:36:58 Patient is being seen by residents. Can they address this? [facility] 2023-10-31 09:46:08 Copied from [facility] #[id number]. Topic: Clinical - Medical Advice >> Oct 31, 2023 9:44 AM Patient Gold Charmer wrote: Pt is requesting call back, states quit taking medication on Sat has not start cycle and is worried about upcoming test. Please call [phone] (home) MEETA Whaley [facility] 2023-10-26 15:00:00 Images from the original note [...] DK BLUE (S) ACD Blood Culture NIPT/NTD [facility] 2023-04-11 20:38:01 Formatting of this n ote [...] lobby with steady gait Cinthya Ware RN [facility] 2023-04-11 18:47:19 Formatting of this n ote might be different from the original. Fever, nausea x3 days. Francheska Chen RN [facility] 2023-04-11 18:40:00 Formatting of this n ote is different from the original. [facility] Emergency Department Note Patient Name: Sienna Rodriguez Date of : 2000 22 year old female Treatment Room: [place] [address] Primary Care Physician: Sallie Reyna Patient Escorted by: Family [5] Mode of Arrival: Personal means [1] EMS Treatment Prior to ED Arrival: SENIOR DIRECTOR OF STRATEGY treatment: None Travel and Exposure Screening: Symptoms [...] Date Amenorrhea, secondary 03/20/2019 Anemia with Anxiety 2015 Bipolar 1 disorder Depression 2016 Female infertility [...] Social History: Tobacco Use Former; Cigarettes: Started 2017 Smokeless Tobacco: Never used smokeless tobacco. Vaping [...] Electronically signed by: Suzanne Elizondo DO 04/11/232032 [facility] 2023-03-26 16:00:07 Formatting of this n ote [...] warnings given, verbalized understanding. Arlene Murillo LVN [facility] 2023-03-26 12:11:45 Formatting of this n ote might be different from the original. Sienna Rodriguez is a 22 year old female is requesting a callback. She says that she has been having some bleeding before her cycle is due. Please call. Thank you. Alia Thomas [facility]
[2024-10-17 08:33] LABS: Absolute Basophils 0.1 K/uL (0-0.5); Absolute Eosinophils 0.1 K/uL (0-0.5); Absolute Lymphocytes (CBC) 1.2 K/uL (0.7-4.9); Absolute Monocytes 0.6 K/uL (0.1-1.3); Absolute Neutrophil 9.5 K/uL (1.8-8.0); Basophils % 0.7 % (0-1.3); Eosinophils % 0.6 % (0-4.4); Hematocrit 44.5 % (36.0-45.0); Hemoglobin 14.8 g/dL (12.0-15.0); Lymphocytes % 10.7 % (15.3-44.8); MCH 28.1 pg (27.0-35.0); MCHC 33.2 g/dL (32.0-36.0); MCV 84.6 fL (80-100); MPV 7.8 fL (7.6-11.3); Monocytes % 5.2 % (3.3-12.3); Neutrophils % 82.8 % (41.7-73.7); Nucleated Red Blood Cells % 0.1 % (0-0); Platelets 383 thou/uL (152-406); RBC Red Blood Cell Count 5.26 M/uL (3.86-4.86); Red Cell Distribution Width 14.3 % (12.1-15.2)
[2024-10-17 08:40] LABS: Albumin 4.3 g/dL (3.4-5.0); Albumin/Globulin Ratio 1.2 (1.1-1.8); Bilirubin Total 0.8 mg/dL (0.2-1.0); Globulin 3.7 g/dL (2.3-3.5)
[2024-10-17 08:50] LABS: Specific Gravity > 1.030 (1.005-1.030)
[2024-10-17 08:51] LABS: Specific Gravity > 1.030 (1.005-1.030); Sqamous Epithelial <5 /HPF (None Seen); Urine Bacteria None Seen /HPF (<20); Urine Bilirubin NEGATIVE (Negative); Urine Blood 3+ (Negative); Urine Clarity Extremely Turbid (Clear); Urine Color Yellow (Yellow); Urine Culture Reflex Order NOT NEEDED; Urine Glucose NEGATIVE (Negative); Urine Ketones TRACE (Negative); Urine Microscopic Reflex YN ORDER UMIC; Urine Mucus 4+ /HPF (None Seen); Urine Nitrite NEGATIVE (Negative); Urine Protein 2+ (Negative); Urine RBC >50 /HPF (None Seen); Urine Urobilinogen 1+ (Normal); Urine WBC <5 /HPF (<5)
[2024-10-17] MEDS ORDERED: CEFTRIAXONE 1000 MG/VIAL ONE (08:58)
[2024-10-17] MEDS ORDERED: NA CHLORIDE 0.9% 1,000 ML ONE (08:59)
[2024-10-17] MEDS ORDERED: TAMSULOSIN 0.4 MG SR CAP ONE (08:59)
[2024-10-17] MEDS ORDERED: KETOROLAC 30 MG/ML INJ ONE (08:59)
[2024-10-17] MEDS ORDERED: PROMETHAZINE INJ 25 MG/ML AMP ONE ×2 (08:59→10:36)
[2024-10-17] MEDS ORDERED: FENTANYL CITR 100 MCG/2 ML ONE (09:33)
--- NOTE | 2024-10-17 10:02 | RAD REPORT ---
EXAMINATION: CT ABDOMEN AND PELVIS WITH CONTRAST CLINICAL INDICATION: Abdominal pain TECHNIQUE: CT abdomen and pelvis was performed, after the administration of 100 cc Isovue-300.. Sagit josh and coronal reconstructions were obtained. One or more of the following dose reduction techniques were used: Automated exposure control, adjustment of the mA and kV according to patient si ze, and iterative reconstruction. Unless otherwise specified, incidental findings do not require dedicated imaging follow-up. [id number]. Oral contrast was not given which limits evaluation of bowel and appendix. COMPARISON: .September 2024 FINDINGS: Small hepatic cyst. The spleen, pancreas, adrenals and right kidney are unremarkable. Mild delay of concentration of contrast within the left kidney. Mild left hydronephrosis. 2 mm calcul us distal left ureter without significant change from the prior exam. No evidence of diverticulitis.. No adnexal mass. Normal appendix. Small umbilical hernia : IMPRESSION: 2 mm calculus distal left ureter results in mild left hydronephrosis.
--- NOTE | 2024-10-17 10:17 | ER ---
Nurse's Notes [facility] Name: Sienna Rodriguez Age: 24 yrs Sex: Female : 2000 Arrival Date: 10/17/2024 Time: 07:50 Bed 7 Private MD: Diagnosis: Hydronephrosis with renal and ureteral calculous obstruction;UTI/ Urinary tract infection, site not specified Presentation: 10/17 08:00 Chief complaint: Patient states: L flank pain with dysuria. Here last week diagnosed ll1 with kidney stone and UTI. Unable to follow-up until next week, ran out of pain meds. Coronavirus screen: Client denies travel out of the [place] in the last 14 days. At this time, the client does not indicate any symptoms associated with coronavirus-19. Ebola Screen: Patient denies travel to an Ebola-affected area in the 21 days before illness onset. Initial Sepsis Screen: Does the patient meet any 2 criteria? No. Patient's initial sepsis screen is negative. Does the patient have a suspected source of infection? No. Patient's initial sepsis screen is negative. Risk Assessment: Do you want to hurt yourself or someone else? Patient reports no desire to harm self or others. Onset of symptoms was September 27, 2024. 08:00 Method Of Arrival: Ambulatory ll1 08:00 Acuity: GATO 3 ll1 Triage Assessment: 08:03 General: Appears in no apparent distress. Behavior is calm, cooperative, appropriate ll1 for age. Pain: Complains of pain in L flank Quality of pain is described as aching, sharp. : Reports burning with urination, cramping, pain in left flank(s). Historical: - Allergies: 07:54 GABAPENTIN; ll1 08:00 Zofran; ll1 - Home Meds: 08:00 sertraline oral [Active]; ll1 - PMHx: 07:54 Asthma; ll1 08:00 Kidney stone; ll1 - Immunization history:: Adult Immunizations up to date. - Social history:: Smoking status: Reported history of juuling and/or vaping. Patient denies any tobacco usage or history of. - Family history:: not pertinent. Screenin:24 [facility] ED Fall Risk Assessment (Adult) History of falling in the last 3 months, iw including since admission No falls in past 3 months (0 pts) Confusion or Disorientation No (0 pts) Intoxicated or Sedated No (0 pts) Impaired Gait No (0 pts) Mobility Assist Device Used No (0 pt) Altered Elimination No (0 pt) Score/Fall Risk Level 0 - 2 = Low Risk Oriented to surroundings, Maintained a safe environment. Abuse screen: Denies threats or abuse. Nutritional screening: No deficits noted. Tuberculosis screening: No symptoms or risk factors identified. Assessment: 08:23 General: Appears in no apparent distress. uncomfortable, Behavior is calm, cooperative. iw Pain: Complains of pain in left low back and left mid back Pain radiates to abdomen. Neuro: Level of Consciousness is awake, alert, obeys commands, Oriented to person, place, time, situation, Moves all extremities. Full function. GI: Abdomen is non-distended, GI: Bowel sounds present X 4 quads. Reports nausea. : Reports burning with urination, discharge, from vagina that is. Derm: Skin is intact, is healthy with good turgor. Musculoskeletal: Range of motion: intact in all extremities. 09:38 Reassessment: Patient appears in no apparent distress at this time. Patient and/or iw family updated on plan of care and expected duration. Pain level reassessed. Vital Signs: 08:00 BP 131 / 90; Pulse 104; Resp 17; Temp 97; Pulse Ox 97% ; Weight 95.25 kg; Height 5 ft. ll1 8 in. ; Pain 5/10; 09:38 BP 130 / 94; Pulse 85; Resp 16; Pulse Ox 97% on R/A; Pain 5/10; iw 10:36 BP 120 / 65; Pulse 76; Resp 16; Pulse Ox 100% on R/A; iw 08:00 Body Mass Index 31.93 (95.25 kg, 172.72 cm) ll1 08:00 Pain Scale: Adult ll1 09:38 Pain Scale: Adult iw ED Course: 07:52 Patient arrived in ED. mr 07:54 Arm band placed on Patient placed in an exam room, on a stretcher. ll1 07:58 Celio Fisher, TOM is Primary Nurse. bp 07:59 Natalio Holland MD is Attending Physician. chinyere 08:03 Triage completed. ll1 08:22 Initial lab(s) drawn, by me, sent to lab. Inserted saline lock: 22 gauge in right iw antecubital area, using aseptic technique. Blood collected. Flushed with 10 mL NS. 09:16 CT Abd/Pelvis - IV Contrast Only In Process Unspecified. EDMS 10:16 Robert Gonzales MD is Referral Physician. chinyere 10:36 Primary Nurse role handed off by Celio Fisher, RN iw 10:36 Toshia Samaniego, RN is Primary Nurse. iw 10:49 No provider procedures requiring assistance completed. IV discontinued, intact, bp bleeding controlled, No redness/swelling at site. Pressure dressing applied. Administered Medications: 08:04 CANCELLED (Duplicate Order): ondansetron 4 mg IVP once; over 2 minutes chinyere 09:10 Drug: Ketorolac IVP 30 mg IVP once Route: IVP; Site: right antecubital; iw 10:51 Follow up: Response: No adverse reaction bp 09:30 Drug: Flomax PO 0.4 mg PO once Route: PO; iw 10:51 Follow up: Response: No adverse reaction bp 09:30 Drug: Rocephin IV 1 grams IV at per protocol once; Given slow IV push per pharmacy iw instructions Route: IV; Rate: per protocol; Site: right antecubital; 10:50 Follow up: IV Status: Completed infusion bp 09:30 Drug: NS 0.9% IV 1000 ml IV at 1000 ml once; to be given as a bolus over 60 minutes iw Route: IV; Rate: 1000 ml; Site: right antecubital; 10:50 Follow up: IV Status: Completed infusion bp 09:37 Drug: fentaNYL (PF) IVP 50 mcg IVP once Route: IVP; Site: right antecubital; iw 10:50 Follow up: Response: No adverse reaction bp 10:36 Not Given (Patient Refused): [id number] mg IVP once iw 10:37 Not Given (Patient Refused): ns 0.9% 1000 ml IV at 1 bolus Per protocol; to be given as iw a bolus over 60 minutes Medication: 08:24 VIS not applicable for this client. iw Outcome: 10:16 Discharge ordered by . chinyere 10:49 Discharged to home ambulatory, with family, bp 10:49 Condition: stable 10:49 Discharge instructions given to patient, Instructed on discharge instructions, follow up and referral plans. medication usage, Demonstrated understanding of instructions, follow-up care, medications, Prescriptions given X 4, 10:51 Patient left the ED. bp Signatures: Dispatcher [employer] EDMS Natalio Holland MD MD cha Rivera, [facility], [facility] mr Toshia Samaniego RN RN iw Peltier, Brian, RN RN bp Lewis, Lynsay, RN RN ll1
--- NOTE | 2024-10-17 10:17 | EDPHYS ---
Physician Documentation [facility] Name: Sienna Rodriguez Age: 24 yrs Sex: Female : 2000 Arrival Date: 10/17/2024 Time: 07:50 Bed 7 Private MD: DIALLO Physician Natalio Holland HPI: 10/17 10:10 This 24 yrs old Female presents to ER via Ambulatory with complaints of chinyree Possible Kidney Stone. 10:10 The patient presents with abdominal pain in the lower abdomen. Onset: The chinyere symptoms/episode began/occurred 5 day(s) ago. The patient complains of pain in the left mid back. The pain does not radiate. Modifying factors: The symptoms are alleviated by nothing. the symptoms are aggravated by nothing. The symptoms radiate to the left flank. Associated signs and symptoms: The patient has no apparent associated signs or symptoms. Historical: - Allergies: 07:54 GABAPENTIN; ll1 08:00 Zofran; ll1 - Home Meds: 08:00 sertraline oral [Active]; ll1 - PMHx: 07:54 Asthma; ll1 08:00 Kidney stone; ll1 - Immunization history:: Adult Immunizations up to date. - Social history:: Smoking status: Reported history of juuling and/or vaping. Patient denies any tobacco usage or history of. - Family history:: not pertinent. ROS: 10:10 Constitutional: Negative for fever, chills, and weight loss, Eyes: Negative for injury, chinyere pain, redness, and discharge, ENT: Negative for injury, pain, and discharge, Neck: Negative for injury, pain, and swelling, Cardiovascular: Negative for chest pain, palpitations, and edema, Respiratory: Negative for shortness of breath, cough, wheezing, and pleuritic chest pain, : Negative for injury, bleeding, discharge, and swelling, MS/Extremity: Negative for injury and deformity, Skin: Negative for injury, rash, and discoloration, Neuro: Negative for headache, weakness, numbness, tingling, and seizure, Psych: Negative for depression, anxiety, suicide ideation, homicidal ideation, and hallucinations, Allergy/Immunology: Negative for hives, rash, and allergies, Endocrine: Negative for neck swelling, polydipsia, polyuria, polyphagia, and marked weight changes, Hematologic/Lymphatic: Negative for swollen nodes, abnormal bleeding, and unusual bruising, 10:10 Abdomen/GI: Positive for abdominal pain, nausea and vomiting, abdominal cramps, of the posterior aspect of left lateral abdomen, anterior aspect of left lateral abdomen and left lower quadrant, Exam: 10:10 Constitutional: This is a well developed, well nourished patient who is awake, alert, chinyere and in no acute distress. Head/Face: Normocephalic, atraumatic. Eyes: Pupils equal round and reactive to light, extra-ocular motions intact. Lids and lashes normal. Conjunctiva and sclera are non-icteric and not injected. Cornea within normal limits. Periorbital areas with no swelling, redness, or edema. ENT: Nares patent. No nasal discharge, no septal abnormalities noted. Tympanic membranes are normal and external auditory canals are clear. Oropharynx with no redness, swelling, or masses, exudates, or evidence of obstruction, uvula midline. Mucous membranes moist. Neck: Trachea midline, no thyromegaly or masses palpated, and no cervical lymphadenopathy. Supple, full range of motion without nuchal rigidity, or vertebral point tenderness. No Meningismus. Chest/axilla: Normal chest wall appearance and motion. Nontender with no deformity. No lesions are appreciated. Cardiovascular: Regular rate and rhythm with a normal S1 and S2. No gallops, murmurs, or rubs. Normal PMI, no JVD. No pulse deficits. Respiratory: Lungs have equal breath sounds bilaterally, clear to auscultation and percussion. No rales, rhonchi or wheezes noted. No increased work of breathing, no retractions or nasal flaring. Skin: Warm, dry with normal turgor. Normal color with no rashes, no lesions, and no evidence of cellulitis. MS/ Extremity: Pulses equal, no cyanosis. Neurovascular intact. Full, normal range of motion., bilateral aka Neuro: Awake and alert, GCS 15, oriented to person, place, time, and situation. Cranial nerves II-XII grossly intact. Motor strength 5/5 in all extremities. Sensory grossly intact. Cerebellar exam normal. Normal gait. Psych: Awake, alert, with orientation to person, place and time. Behavior, mood, and affect are within normal limits. 10:10 Abdomen/GI: Inspection: abdomen appears normal, Bowel sounds: normal, Palpation: nontender, in all quadrants, Liver: no appreciated palpable abnormalities, Hernia: not appreciated, Vital Signs: 08:00 BP 131 / 90; Pulse 104; Resp 17; Temp 97; Pulse Ox 97% ; Weight 95.25 kg; Height 5 ft. ll1 8 in. ; Pain 5/10; 09:38 BP 130 / 94; Pulse 85; Resp 16; Pulse Ox 97% on R/A; Pain 5/10; iw 10:36 BP 120 / 65; Pulse 76; Resp 16; Pulse Ox 100% on R/A; iw 08:00 Body Mass Index 31.93 (95.25 kg, 172.72 cm) ll1 08:00 Pain Scale: Adult ll1 09:38 Pain Scale: Adult iw MDM: 07:59 Medical Screening Exam initiated chinyere 10:12 Differential diagnosis: UTI, non-specific abd pain. Data reviewed: vital signs, nurses [facility] notes, lab test result(s), radiologic studies, plain films. Consideration of Admission/Observation Escalation of care including admission/observation considered. I considered the following discharge prescriptions or medication management in the emergency department Medications were administered in the Emergency Department. See MAR. Independent interpretation of the following test(s) in the Emergency Department CT Scan: My interpretation is ct stone. Test considered but Not performed: Ultrasound no abd usg. Historians other than the Patient: Spouse/Significant Other: spouse well informed. Care significantly affected by the following chronic conditions: asthma, kidney stone. 10/17 08:00 Order name: CBC with Diff; Complete Time: 10:03 [facility] 10/17 08:00 Order name: CMP; Complete Time: 10:03 [facility] 10/17 08:00 Order name: Lipase; Complete Time: 10:03 [facility] 10/17 08:00 Order name: Test, Urine; Complete Time: 10:03 [facility] 10/17 08:00 Order name: Urinalysis w/ reflexes; Complete Time: 10:03 [facility] 10/17 08:03 Order name: CT Abd/Pelvis - IV Contrast Only; Complete Time: 10:03 [facility] 10/17 08:00 Order name: IV Saline Lock; Complete Time: 08:42 [facility] 10/17 08:00 Order name: Labs collected and sent; Complete Time: 08:42 [facility] Administered Medications: 08:04 CANCELLED (Duplicate Order): ondansetron 4 mg IVP once; over 2 minutes chinyere 09:10 Drug: Ketorolac IVP 30 mg IVP once Route: IVP; Site: right antecubital; iw 10:51 Follow up: Response: No adverse reaction bp 09:30 Drug: Flomax PO 0.4 mg PO once Route: PO; iw 10:51 Follow up: Response: No adverse reaction bp 09:30 Drug: Rocephin IV 1 grams IV at per protocol once; Given slow IV push per pharmacy iw instructions Route: IV; Rate: per protocol; Site: right antecubital; 10:50 Follow up: IV Status: Completed infusion bp 09:30 Drug: NS 0.9% IV 1000 ml IV at 1000 ml once; to be given as a bolus over 60 minutes iw Route: IV; Rate: 1000 ml; Site: right antecubital; 10:50 Follow up: IV Status: Completed infusion bp 09:37 Drug: fentaNYL (PF) IVP 50 mcg IVP once Route: IVP; Site: right antecubital; iw 10:50 Follow up: Response: No adverse reaction bp 10:36 Not Given (Patient Refused): [id number] mg IVP once iw 10:37 Not Given (Patient Refused): ns 0.9% 1000 ml IV at 1 bolus Per protocol; to be given as iw a bolus over 60 minutes Disposition Summary: 10/17/24 10:16 Discharge Ordered Notes: Location: Home chinyere Problem: an ongoing problem chinyere Symptoms: are unchanged chinyere Condition: Stable chinyere Diagnosis - Hydronephrosis with renal and ureteral calculous obstruction chinyere - UTI/ Urinary tract infection, site not specified chinyere Followup: chinyere - With: Private Physician - When: 2 - 3 days - Reason: Recheck today's complaints, Continuance of care, Re-evaluation by your physician Followup: chinyere - With: Robert Gonzales MD - When: 2 - 3 days - Reason: Recheck today's complaints, Re-evaluation by your physician Discharge Instructions: - Discharge Summary Sheet chinyere - Kidney Stones chinyere - Urinary Tract Infection, Adult chinyere - Kidney Stones, [id number] chinyere - Urinary Tract Infection, Adult, [id number] chinyere - Hydronephrosis chinyere - Dietary Guidelines to Help Prevent Kidney Stones chinyere Forms: - Medication Reconciliation Form chinyere - Antibiotic Education chinyere - Prescription Opioid Use chinyere - Patient Portal Instructions chinyere - Leadership Thank You Letter chinyere Prescriptions: - Flomax 0.4 mg Oral capsule - take 1 capsule ORAL route every 24 hours; 30 capsule; Refills: 0, Product [facility] Selection Permitted - Cipro 250 mg Oral tablet - take 1 tablet ORAL route every 12 hours; 14 tablet; Refills: 0, Product [facility] Selection Permitted - Tramadol 50 mg Oral tablet - take 1 tablet ORAL route every 8 hours as needed; 20 tablet; Refills: 0, [facility] Product Selection Permitted - promethazine 25 mg Oral Tablet - take 1 tablet ORAL route every 6 hours As needed; 20 tablet; Refills: 0, [facility] Product Selection Permitted Signatures: Dispatcher [employer] EDNatalio Berry MD MD cha Williams, Irene, RN RN iw Teodoro Torres RN RN ll1 Celio Fisher RN bp Corrections: (The following items were deleted from the chart) 08:04 08:00 Ondansetron IVP 4 mg IVP once; over 2 minutes ordered. chinyere whitlock
[2024-10-17 11:09] VITALS: TEMP 97
[2024-10-17 11:16] VITALS: BP 120/65; O2SAT 100
== END 2024-10-17 10:51 | disposition home or self-care (01) ==
LOC: ER 07:50
DX: N13.2 Hydronephrosis with renal and ureteral calculous obstruction (principal); N39.0 Urinary tract infection, site not specified; Z87.442 Personal history of urinary calculi
CPT/HCPCS: 96365; 85025; 81001; 36415; 81025; 83690; 80053; 74177; 96375; 99284; Q9967; J2550 ×2; J3010; J7030; J0696